=== PATIENT | female | born 1955 | race African-American/Black ===

== ENCOUNTER 2017-01-27 13:29 | Emergency (ER) | payer OTHER, MEDICARE, MEDICAID ==
--- NOTE | 2017-01-27 14:16 | ER Document Report ---
ED Medical Screen (RME) - General Stated Complaint: DIFFICULTY BREATHING Notes: She complains of difficulty breathing since last night. States she has had cough and congestion for the last week and a half. Denies chest pain. Also states she feels achy. No nausea or vomiting. Patient has a history of COPD and CHF. Used her inhalers at home last night but they are not helping. No fever I have greeted and performed a rapid initial assessment of this patient. A comprehensive ED assessment and evaluation of the patient, analysis of test results and completion of the medical decision making process will be conducted by additional ED providers. TRAVEL OUTSIDE OF THE [place] IN LAST 30 DAYS: No - Related Data Allergies/Adverse Reactions: No Known Allergies Allergy (Verified 01/27/17 14:11) Past Medical History - Past Medical History Cardiac Medical History: Reports: Hx Congestive Heart Failure, Hx Coronary Artery Disease, Hx Hypercholesterolemia, Hx Hypertension Pulmonary Medical History: Reports: Hx Asthma, Hx Bronchitis, Hx COPD - O2 dependent Denies: Hx Tuberculosis Musculoskeltal Medical History: Reports Hx Gout Psychiatric Medical History: Reports: Hx Depression Past Surgical History: Reports: Hx Section - x 4, Hx Tubal Ligation - Immunizations Hx Diphtheria, Pertussis, Tetanus Vaccination: Yes Physical Exam - Notes Notes: Patient has inspiratory and expiratory wheezing on auscultation, decreased air movement. No swelling noted to ankles.
[2017-01-27 15:12] LABS: ABSOLUTE BASOPHILS # (AUTO) 0.1 10^3/uL (0.0-0.2); ABSOLUTE EOSINOPHILS # (AUTO) 0.2 10^3/uL (0.0-0.6); ABSOLUTE LYMPHOCYTES (AUTO) 1.9 10^3/uL (0.5-4.7); ABSOLUTE NEUT (AUTO) 15.1 10^3/uL (1.7-8.2); BASOPHILS % (AUTO) 0.5 % (0-2); HEMATOCRIT 32.8 % (36.0-47.0); HEMOGLOBIN 10.8 g/dL (12.0-15.5); HGB HCT DIFFERENCE -0.4; LYMPHOCYTES % (AUTO) 10.4 % (13-45); MEAN CORPUSCULAR HEMOGLOBIN 27.6 pg (27.0-33.4); MEAN CORPUSCULAR HGB CONC 32.9 g/dL (32.0-36.0); MEAN CORPUSCULAR VOLUME 84 fl (80-97); MONOCYTES % (AUTO) 5.4 % (3-13); RED BLOOD COUNT 3.92 10^6/uL (3.72-5.28); RED CELL DISTRIBUTION WIDTH 18.1 % (11.5-14.0); SEGMENTED NEUTROPHILS % (AUTO) 82.7 % (42-78); WHITE BLOOD COUNT 18.3 10^3/uL (4.0-10.5)
[2017-01-27 15:28] LABS: ALANINE AMINOTRANSFERASE 18 U/L (9-52); ALKALINE PHOSPHATASE 121 U/L (38-126); ANION GAP 14 (5-19); ASPARTATE AMINO TRANSFERASE 13 U/L (14-36); BILIRUBIN,TOTAL 0.8 mg/dL (0.2-1.3); BLOOD UREA NITROGEN 23 mg/dL (7-20); CALCIUM 10.4 mg/dL (8.4-10.2); CARBON DIOXIDE 26 mmol/L (22-30); CHLORIDE 105 mmol/L (98-107); CREATININE RESULT 1.45 mg/dL (0.52-1.25); GLUCOSE 97 mg/dL (75-110); POTASSIUM 3.9 mmol/L (3.6-5.0); SODIUM 144.5 mmol/L (137-145); TOTAL PROTEIN 7.2 g/dL (6.3-8.2)
[2017-01-27] MEDS ORDERED: IPRATROPIUM/ALBUTEROL 0.5-2.5 MG/3 ML AMPUL NEB ONE (17:18)
[2017-01-27] MEDS ORDERED: PREDNISONE 20 MG TABLET PO ONE (17:19)
[2017-01-27] MEDS ORDERED: HYDROCODONE/ACETAMINOPHEN 5-325 MG TABLET PO ONE (17:20)
[2017-01-27] MEDS ORDERED: CYCLOBENZAPRINE HCL 10 MG TABLET PO ONE (17:20)
--- NOTE | 2017-01-27 17:22 | ER Document Report ---
ED General - General Chief Complaint: Shortness Of Breath Stated Complaint: DIFFICULTY BREATHING Mode of Arrival: Medic Information source: Patient, H Records Notes: This is a 61-year-old -Japanese female with oxygen-dependent COPD who presents with several complaints. Of note she has had a cough the past few days and has had increased wheezing. Also she states that she has pain to her right hand and both sides of her neck since last night. She also has R knee pain since last night. She states she has had similar pain in the past and was told that she has arthritis. Of note, she does have a history of gout in the past, and she has had this in her hands but never in her knee. She denies fevers or chills. She denies chest pain. TRAVEL OUTSIDE OF THE [place] IN LAST 30 DAYS: No - Related Data Allergies/Adverse Reactions: No Known Allergies Allergy (Verified 01/27/17 14:11) Past Medical History - Social History Smoking Status: Unknown if Ever Smoked Chew tobacco use (# tins/day): No Frequency of alcohol use: None Drug Abuse: None Family History: CVA, Hypertension Patient has suicidal ideation: No Patient has homicidal ideation: No - Past Medical History Cardiac Medical History: Reports: Hx Congestive Heart Failure, Hx Coronary Artery Disease, Hx Hypercholesterolemia, Hx Hypertension Pulmonary Medical History: Reports: Hx Asthma, Hx Bronchitis, Hx COPD - O2 dependent Denies: Hx Tuberculosis Renal/ Medical History: Denies: Hx Peritoneal Dialysis Musculoskeltal Medical History: Reports Hx Gout Psychiatric Medical History: Reports: Hx Depression Past Surgical History: Reports: Hx Section - x 4, Hx Tubal Ligation - Immunizations Hx Diphtheria, Pertussis, Tetanus Vaccination: Yes Hx Pneumococcal Vaccination: 05/06/12 Review of Systems - Review of Systems Constitutional: No symptoms reported. denies: Chills, Fever EENT: No symptoms reported Cardiovascular: No symptoms reported. denies: Chest pain Respiratory: See HPI Gastrointestinal: No symptoms reported. denies: Abdominal pain, Vomiting Genitourinary: No symptoms reported Musculoskeletal: See HPI Skin: No symptoms reported Neurological/Psychological: No symptoms reported. denies: Confusion, Headaches Physical Exam - Vital signs Vitals: Pulse BP Pulse Ox 81 179/81 H 95 01/27/17 13:48 01/27/17 13:48 01/27/17 13:48 - Notes Notes: PHYSICAL EXAMINATION: GENERAL: Well-appearing, obese adult female and in no acute distress. Pleasant and conversant with no conversational dyspnea. HEAD: Atraumatic, normocephalic. EYES: Pupils equal round and reactive to light, extraocular movements intact, sclera anicteric, conjunctiva are normal. ENT: nares patent, oropharynx clear without exudates. Moist mucous membranes. NECK: Normal range of motion, supple without lymphadenopathy. Bilateral paracervical muscle tenderness to palpation. No midline tenderness to palpation LUNGS: Diffuse scattered inspiratory and expiratory wheezes bilaterally with good air movement. No rhonchi. HEART: Regular rate and rhythm without murmurs ABDOMEN: Soft, nontender, normoactive bowel sounds. No guarding, no rebound. No masses appreciated. EXTREMITIES: Normal range of motion. R hand: no obvious deformity, DNVI, cap refill and pulses intact R knee: no obvious edema or deformity, no erythema or warmth. Diffuse TTP anteriorly. Distal pulses intact. ROM limited by pain. NEUROLOGICAL: Cranial nerves grossly intact. Normal speech. No gross focal motor sensory deficits appreciated. PSYCH: Normal mood, normal affect. SKIN: Warm, Dry, normal turgor, no rashes or lesions noted. Course - Re-evaluation Re-evalutation: 01/27/17 21:28 Patient states that her pain is much more controlled and that her breathing is at her baseline. We discussed her x-ray and lab results. She does have a leukocytosis as well as possibly a UTI. At this time she will be treated for urinary tract infection as well as a COPD exacerbation and gout. She will follow up with her primary care physician on Monday. Strict return precautions were discussed. She is comfortable with this plan. - Vital Signs Vital signs: Temp Pulse Resp BP Pulse Ox 98.1 F 88 17 179/94 H 95 01/27/17 21:47 01/27/17 21:47 01/27/17 21:47 01/27/17 21:47 01/27/17 21:47 - Laboratory Result Diagrams: 01/27/17 14:45 01/27/17 14:45 Laboratory results interpreted by me: 01/27/17 01/27/17 01/27/17 14:45 14:45 14:45 WBC 18.3 H Hgb 10.8 L Hct 32.8 L RDW 18.1 H Seg Neutrophils % 82.7 H Lymphocytes % 10.4 L Absolute Neutrophils 15.1 H BUN 23 H Creatinine 1.45 H Est GFR ( Amer) 44 L Est GFR (Non-Af Amer) 37 L Calcium 10.4 H AST 13 L NT-Pro-B Natriuret Pep 1280 H Urine Protein Urine Blood Ur Leukocyte Esterase 01/27/17 14:45 WBC Hgb Hct RDW Seg Neutrophils % Lymphocytes % Absolute Neutrophils BUN Creatinine Est GFR ( Amer) Est GFR (Non-Af Amer) Calcium AST NT-Pro-B Natriuret Pep Urine Protein 30 H Urine Blood SMALL H Ur Leukocyte Esterase LARGE H - Diagnostic Test Radiology reviewed: Reports reviewed - Chest x-ray no significant interval change noted infiltrate. Right hand x-ray negative Right knee x-ray negative Discharge - Discharge Clinical Impression: COPD exacerbation Gout attack Qualifiers: Gout site: multiple sites Gout etiology: unspecified cause Qualified Code(s): M10.9 - Gout, unspecified Urinary tract infection Qualifiers: Urinary tract infection type: site unspecified Hematuria presence: without hematuria Qualified Code(s): N39.0 - Urinary tract infection, site not specified Condition: Stable Disposition: HOME, SELF-CARE Additional Instructions: Chronic Obstructive Lung Disease You have chronic obstructive lung disease (COPD). The symptoms come from emphysema (damage to small airways, with trapping of air in large sacks in the lung) and chronic bronchitis (repeated infection and damage to larger airways). The cause is almost always cigarette smoking, although dust exposure, asthma, and infections contribute. You should avoid fumes, dust, and smoke (especially tobacco smoke). Your condition will flare from time to time. There is no cure, but the symptoms can be treated. Bronchodilators (asthma medicine) are often helpful. Antibiotics help when infection is present. When shortness of breath is severe, we may prescribe cortisone medication. If medicine doesn't help enough, we can arrange for you to have an oxygen tank at home. Notify your doctor at once if sputum becomes thick, foul, or bloody, if you develop a fever or chest pain, or if your shortness of breath worsens. URINARY TRACT INFECTION: Your evaluation indicates that you have a urinary tract infection. This is due to germs growing in the bladder. This is a common problem. This infection usually responds quickly to antibiotics. Your antibiotic should be taken exactly as prescribed. Drink plenty of fluids -- three to four quarts a day. Occasionally, a bladder anesthetic will be prescribed to help stop the feeling of urgency until the antibiotic has a chance to clear the infection. This may cause your urine to be dark orange. Certain urine infections require a culture. If the doctor obtained a culture, the results will be back in two days. You should call to see if a change in treatment is needed. A repeat urinalysis after you finish treatment is often recommended. The physician will let you know if further testing is required. Call the doctor if you develop fever, chills, flank pain, inability to urinate, or blood in the urine. ANTIBIOTIC THERAPY: You have been given an antibiotic prescription. It's important that you take all the medication, unless instructed otherwise by your physician. Failure to complete the entire course can result in relapse of your condition. Common side effects of antibiotics include nausea, intestinal cramping, or diarrhea. Women may develop vaginal yeast infections, and babies can get yeast (thrush) in the mouth following the use of antibiotics. Contact your physician if you develop significant side effects from this medication. Allergy to this antibiotic can result in hives, wheezing, faintness, or itching. If symptoms of allergy occur, stop the medication and call the doctor. LEVOFLOXACIN: You have been given an antibacterial agent, levofloxacin (Levaquin). This medicine is not related to the penicillins, sulfas, cephalosporins, or tetracyclines. It is often given to patients who are allergic to these drugs. It has been chosen for you either because other drugs are not appropriate, or because of the nature of your problem. Levaquin should not be taken with antacids, as these can decrease its effectiveness. It can be taken without regard to meals. LEVAQUIN SHOULD NOT BE TAKEN BY CHILDREN, NURSING WOMEN, OR WOMEN. Although Levaquin is usually well-tolerated, common side effects can include nausea and diarrhea. Contact your doctor if you experience any unusual symptoms while on this medication, such as joint pain or swelling, shortness of breath, wheezing, faintness, or hives. Gout You have been diagnosed as having gout. Gout is a problem caused by an excess of uric acid, a natural chemical found in the body. The cause of this disease is unknown. Gout arthritis occurs when crystals of uric acid form in the joints. The big toe is the most common joint involved, but any joint can become affected. Persons with gout may also form uric acid kidney stones, resulting in flank pain and blood in the urine. Nodules of uric acid may form under the skin. The first step of treatment is to decrease the inflammation in the joint with antiinflammatory medication. Medication to lower the uric acid level in the blood may then be prescribed. This medication should be taken regularly, as any sudden change in dosage may provoke an attack of gout. Some foods, such as red meat, can provoke an attack in some gout sufferers. Call the doctor if new symptoms arise, or if you do not improve. FOLLOW-UP CARE: If you have been referred to a physician for follow-up care, call the physician s office for an appointment as you were instructed or within the next two days. If you experience worsening or a significant change in your symptoms, notify the physician immediately or return to the Emergency Department at any time for re-evaluation. Prescriptions: Hydrocodone/Acetaminophen [Lortab 5-325 mg Tablet] 1 each PO Q6H PRN #12 tablet PRN Reason: For Pain Levofloxacin [Levaquin 750 mg Tablet] 750 mg PO DAILY #5 tablet Prednisone [Deltasone 20 mg Tablet] 3 tab PO DAILY 4 Days Referrals: MILA LO MD [Primary Care Provider] - Follow up in 3-5 days
[2017-01-27] MEDS ORDERED: HYDROCODONE/ACETAMINOPHEN 7.5-325 MG TABLET PO ONE (17:32)
[2017-01-27 17:33] LABS: APPEARANCE,URINE CLEAR; BILIRUBIN,URINE NEGATIVE (NEGATIVE); GLUCOSE, URINE NEGATIVE (NEGATIVE); KETONES,URINE NEGATIVE (NEGATIVE); LEUKOCYTE ESTERASE,URINE LARGE (NEGATIVE); NITRITE,URINE NEGATIVE (NEGATIVE); PROTEIN,URINE 30 mg/dL (NEGATIVE); URINE SPECIFIC GRAVITY 1.001; UROBILINOGEN,URINE NEGATIVE mg/dL (<2.0)
[2017-01-27] MEDS ORDERED: CEFTRIAXONE 1 GM/D5W RTU 50 ML IV ONE (19:13)
[2017-01-27] MEDS ORDERED: INDOMETHACIN 50 MG CAPSULE PO ONE (19:20)
[2017-01-27] MEDS ORDERED: MORPHINE SULFATE 10 MG/ML INJ IV ONE (19:21)
--- NOTE | 2017-01-27 19:40 | EKG REPORT ---
SEVERITY:- ABNORMAL ECG - SINUS RHYTHM PROBABLE LEFT ATRIAL ABNORMALITY NONSPECIFIC INTRAVENTRICULAR CONDUCTION DELAY LEFT VENTRICULAR HYPERTROPHY : Confirmed by: Lauren Wick 27-Jan-2017 19:40:02
[2017-01-27 22:38] VITALS: BP 179/94
== END 2017-01-27 21:47 | disposition home or self-care (01) ==
LOC: ER 13:29
DX: J44.1 Chronic obstructive pulmonary disease with (acute) exacerbation (principal); J45.909 Unspecified asthma, uncomplicated; Z99.81 Dependence on supplemental oxygen; M10.9 Gout, unspecified; N39.0 Urinary tract infection, site not specified; D72.829 Elevated white blood cell count, unspecified; R05 Cough; M54.2 Cervicalgia; M79.641 Pain in right hand; M25.561 Pain in right knee; I25.10 Atherosclerotic heart disease of native coronary artery without angina pectoris; I10 Essential (primary) hypertension; E66.9 Obesity, unspecified; Z68.37 Body mass index [BMI] 37.0-37.9, adult
CPT/HCPCS: 93005; 94640; 99285; 96375; 96365; 36415; 87040; 85025; 80053; 81001; 83880; 71020; 73130; 73562; 93010; J3490; J2270; J7512; J0696; J7620

== ENCOUNTER 2017-04-15 19:05 | Inpatient (IN) | payer OTHER, MEDICARE, MEDICAID ==
[2017-04-15] MEDS ORDERED: IPRATROPIUM/ALBUTEROL 0.5-2.5 MG/3 ML AMPUL NEB ONE ×3 (19:23→21:58)
[2017-04-15] MEDS ORDERED: METHYLPREDNISOLONE INJ 125 MG/2 ML SDV IV ONE (19:23)
--- NOTE | 2017-04-15 19:23 | ER Document Report ---
ED Respiratory Problem - General Mode of Arrival: Ambulatory Information source: Patient TRAVEL OUTSIDE OF THE [place] IN LAST 30 DAYS: No - HPI Patient complains to provider of: Short of breath Short of Breath: Moderate <MEGHA VILLA - Last Filed: 04/15/17 19:42> <KEATON PUTNAM - Last Filed: 04/15/17 23:37> - General Stated Complaint: SHORTNESS OF BREATH Time Seen by Provider: 04/15/17 19:16 Notes: Patient is a 61-year-old female who presents to the emergency department today with complaints of shortness of breath. Patient states she "just got done fishing when she began having shortness of breath approximately 5 hours prior to arrival". Patient states she had one breathing treatment at home prior to arrival. Patient states she takes 1 breathing treatment every 6 hours but does not have any emergency treatments for times like this. Patient states she is on 2L of home oxygen. Patient states she gained 2.2 pounds yesterday. Patient states she has had a slight cough but denies chest pain, fevers, leg swelling, abdominal pain. (MEGHA VILLA) - Related Data Allergies/Adverse Reactions: No Known Allergies Allergy (Verified 01/27/17 14:11) Past Medical History - General Information source: Patient - Social History Smoking Status: Unknown if Ever Smoked Cigarette use (# per day): No Frequency of alcohol use: None Drug Abuse: None Lives with: Family Family History: Reviewed & Not Pertinent, CVA, Hypertension - Past Medical History Cardiac Medical History: Reports: Hx Congestive Heart Failure, Hx Coronary Artery Disease, Hx Hypercholesterolemia, Hx Hypertension Pulmonary Medical History: Reports: Hx Asthma, Hx Bronchitis, Hx COPD - O2 dependent Musculoskeltal Medical History: Reports Hx Gout Psychiatric Medical History: Reports: Hx Depression Past Surgical History: Reports: Hx Section - x 4, Hx Tubal Ligation - Immunizations Hx Diphtheria, Pertussis, Tetanus Vaccination: Yes Hx Pneumococcal Vaccination: 05/06/12 <MEGHA VILLA - Last Filed: 04/15/17 19:42> Review of Systems - Review of Systems Constitutional: denies: Fever EENT: No symptoms reported Cardiovascular: denies: Chest pain Respiratory: See HPI, Cough, Short of breath Gastrointestinal: denies: Abdominal pain Genitourinary: No symptoms reported Female Genitourinary: No symptoms reported Musculoskeletal: denies: Joint pain Skin: No symptoms reported Hematologic/Lymphatic: No symptoms reported Neurological/Psychological: No symptoms reported -: Yes All other systems reviewed and negative <MEGHA VILLA - Last Filed: 04/15/17 19:42> Physical Exam <MEGHA VILLA - Last Filed: 04/15/17 19:42> <KEATON PUTNAM - Last Filed: 04/15/17 23:37> - Vital signs Vitals: Temp Resp Pulse Ox 98.1 F 22 H 97 04/15/17 19:30 04/15/17 19:30 04/15/17 19:30 - Notes Notes: Physical Exam: General: Alert, appears well. HEENT: Normocephalic. Atraumatic. PERRL. Extraocular movements intact. Oropharynx clear. Neck: Supple. Non-tender. Respiratory: Coarse breath sounds diffusely w/ wheeze. Good air movement. Cardiovascular: Regular rate and rhythm. Abdominal: Obese. Non-tender. No distension. Normal Bowel Sounds. Back: Non-tender. No deformity or step off. Extremities: Moves all four extremities. Upper extremities: Normal inspection. Normal ROM. Lower extremities: Trace edema to bilateral lower extremities. Normal ROM. Neurological: Normal cognition. AAOx4. Normal speech. Psychological: Normal affect. Normal Mood. Skin: Warm. Dry. Normal color. (MEGHA VILLA) Course - Laboratory Result Diagrams: 04/15/17 19:28 04/15/17 19:28 <ALLENKRISSYMEGHA - Last Filed: 04/15/17 19:42> - Laboratory Result Diagrams: 04/15/17 19:28 04/15/17 19:28 <KEATON PUTNAM - Last Filed: 04/15/17 23:37> - Re-evaluation Re-evalutation: 04/15/17 21:59 pt still with persistent wheezing. Will add Azithromycin for atypical pneumonia coverage. Sats good but still somewhat tachypneic. (KEATON PUTNAM) - Vital Signs Vital signs: Temp Pulse Resp BP Pulse Ox 98.1 F 25 H 152/82 H 95 04/15/17 19:30 04/15/17 22:01 04/15/17 22:01 04/15/17 22:01 - Laboratory Laboratory results interpreted by me: 04/15/17 04/15/17 19:28 19:28 Hgb 11.4 L Hct 34.8 L RDW 14.4 H Sodium 146.8 H Potassium 3.3 L BUN 28 H Creatinine 1.52 H Est GFR ( Amer) 42 L Est GFR (Non-Af Amer) 35 L Discharge <MEGHA VILLA - Last Filed: 04/15/17 19:42> - Discharge Admitting Provider: Hospitalist Unit Admitted: Telemetry [facility] <KEATON PUTNAM - Last Filed: 04/15/17 23:37> - Discharge Clinical Impression: Wheezing, Obstructive chronic bronchitis with exacerbation Condition: Stable Disposition: ADMITTED OBSERVATION Referrals: WENCESLAO PEGUERO DO [Primary Care Provider] - Follow up as needed Scribe Attestation: 04/15/17 23:37 I personally performed the services described in the documentation, reviewed and edited the documentation which was dictated to the scribe in my presence, and it accurately records my words and actions. (KEATON PUTNAM) Scribe Documentation - Scribe Written by Atae:: Mayela Campbell, 04/15/171950 acting as scribe for :: Layla <MEGHA VILLA - Last Filed: 04/15/17 19:42>
[2017-04-15 19:46] LABS: ABSOLUTE BASOPHILS # (AUTO) 0.1 10^3/uL (0.0-0.2); ABSOLUTE EOSINOPHILS # (AUTO) 0.5 10^3/uL (0.0-0.6); ABSOLUTE LYMPHOCYTES (AUTO) 3.3 10^3/uL (0.5-4.7); ABSOLUTE MONOCYTES (AUTO) 0.7 10^3/uL (0.1-1.4); BASOPHILS % (AUTO) 0.7 % (0-2); HEMATOCRIT 34.8 % (36.0-47.0); HEMOGLOBIN 11.4 g/dL (12.0-15.5); HGB HCT DIFFERENCE -0.6; LYMPHOCYTES % (AUTO) 34.5 % (13-45); MEAN CORPUSCULAR HEMOGLOBIN 28.3 pg (27.0-33.4); MEAN CORPUSCULAR HGB CONC 32.7 g/dL (32.0-36.0); MEAN CORPUSCULAR VOLUME 87 fl (80-97); MONOCYTES % (AUTO) 7.3 % (3-13); RED BLOOD COUNT 4.03 10^6/uL (3.72-5.28); RED CELL DISTRIBUTION WIDTH 14.4 % (11.5-14.0); SEGMENTED NEUTROPHILS % (AUTO) 52.5 % (42-78); WHITE BLOOD COUNT 9.4 10^3/uL (4.0-10.5)
[2017-04-15 19:51] LABS: ALANINE AMINOTRANSFERASE 20 U/L (9-52); ALBUMIN 3.5 g/dL (3.5-5.0); ALKALINE PHOSPHATASE 107 U/L (38-126); ANION GAP 14 (5-19); ASPARTATE AMINO TRANSFERASE 15 U/L (14-36); BILIRUBIN,DIRECT 0.2 mg/dL (0.0-0.4); BILIRUBIN,TOTAL 0.3 mg/dL (0.2-1.3); BLOOD UREA NITROGEN 28 mg/dL (7-20); CALCIUM 9.3 mg/dL (8.4-10.2); CARBON DIOXIDE 27 mmol/L (22-30); CHLORIDE 106 mmol/L (98-107); CREATININE RESULT 1.52 mg/dL (0.52-1.25); GLUCOSE 101 mg/dL (75-110); POTASSIUM 3.3 mmol/L (3.6-5.0); SODIUM 146.8 mmol/L (137-145); TOTAL PROTEIN 6.6 g/dL (6.3-8.2)
[2017-04-15 20:03] LABS: TROPONIN I 0.029 ng/mL
--- NOTE | 2017-04-15 20:21 | EKG REPORT ---
SEVERITY:- ABNORMAL ECG - SINUS RHYTHM IVCD, CONSIDER ATYPICAL LBBB : Confirmed by: Everardo Parson MD 15-Apr-2017 20:20:53
--- NOTE | 2017-04-15 20:43 | RADIOLOGY REPORT (SQ) ---
EXAM DESCRIPTION: CHEST PA/LAT COMPLETED DATE/TIME: 04/15/2017 8:29 pm REASON FOR STUDY: cough, wheezing COMPARISON: January 2017 EXAM PARAMETERS: NUMBER OF VIEWS: two views TECHNIQUE: Digital Frontal and Lateral radiographic views of the chest acquired. RADIATION DOSE: NA LIMITATIONS: none FINDINGS: LUNGS AND PLEURA: No opacities, masses or pneumothorax. No pleural effusion. MEDIASTINUM AND HILAR STRUCTURES: No masses or contour abnormalities. HEART AND VASCULAR STRUCTURES: The configuration of the heart and mediastinal structures is unchanged . BONES: No acute findings. HARDWARE: None in the chest. OTHER: No other significant finding. IMPRESSION: No significant interval change. No acute findings. Other findings as noted above. TECHNICAL DOCUMENTATION: JOB ID: [id number] [employer]- All Rights Reserved
[2017-04-15] MEDS ORDERED: AZITHROMYCIN 250 MG TABLET PO ONE (21:58)
[2017-04-15] MEDS ORDERED: ALBUTEROL SULFATE 0.083% NEB 2.5 MG/3 ML AMPUL NEB ONE (23:11)
[2017-04-15] MEDS ORDERED: FUROSEMIDE INJ/PF 40 MG/4 ML SDV IV ONE (23:13)
[2017-04-15] MEDS ORDERED: POTASSIUM CHLORIDE 20 MEQ/15 ML UDCUP PO ONE (23:35)
[2017-04-16] MEDS ORDERED: ACETAMINOPHEN 325 MG TABLET PO PRN (00:09)
[2017-04-16] MEDS ORDERED: HYDROCODONE/ACETAMINOPHEN 5-325 MG TABLET PO PRN (00:09)
[2017-04-16] MEDS ORDERED: PREDNISONE 20 MG TABLET PO SCH (00:15)
--- NOTE | 2017-04-16 00:55 | PDOC H&P ---
History of Present Illness Admission Date/PCP: 04/16/17 00:16 WENCESLAO PEGUERO DO Patient complains of: Shortness of breath and cough History of Present Illness: BOOM TODD is a 61 year old female past medical history of hypertension , diastolic heart failure, home oxygen dependent COPD, moderate mitral regurgitation and stage III chronic kidney disease. She was in her her usual state of health until approximately 6 hours prior to presentation, developing shortness of breath and a nonproductive cough while ambulating not significantly improved with use of nebulizer or rest prompting evaluation in the emergency room where she is found to have uncontrolled hypertension, tachycardia and a COPD exacerbation and referred to the hospitalist for admission. She denies chest pain palpitations nausea or vomiting and admits to improvement. Denies recent change in medications otherwise felt well. Past Medical History Cardiac Medical History: Reports: Congestive Heart Failure, Coronary Artery Disease, Hyperlipidema, Hypertension Pulmonary Medical History: Reports: Asthma, Bronchitis, Chronic Obstructive Pulmonary Disease (COPD) - O2 dependent Denies: Tuberculosis Musculoskeltal Medical History: Reports: Gout Psychiatric Medical History: Reports: Depression Past Surgical History Past Surgical History: Reports: Section - x 4, Tubal Ligation Social History Information Source: Patient Lives with: Family Smoking Status: Former Smoker Frequency of Alcohol Use: None Hx Recreational Drug Use: No Drugs: None Hx Prescription Drug Abuse: No - Advance Directive Resuscitation Status: Full Code Family History Family History: CVA, Hypertension Parental Family History Reviewed: Yes Children Family History Reviewed: Yes Sibling(s) Family History Reviewed.: Yes Medication/Allergy Home Medications: Amlodipine Besylate [Norvasc 10 mg Tablet] 10 mg PO DAILY 10/16/16 Aspirin [Ecotrin] 81 mg PO DAILY PRN 10/16/16 Cyanocobalamin (Vitamin B-12) [B-12] 1,000 mcg PO DAILY 10/16/16 Gabapentin [Neurontin] 800 mg PO DAILY 10/16/16 Hydralazine HCl [Apresoline 50 mg Tablet] 50 mg PO QID 10/16/16 Multivitamin [Multivitamins] 1 each PO DAILY 10/16/16 Acetaminophen [Tylenol 325 mg Tablet] 650 mg PO Q6HP PRN tablet 10/20/16 Doxycycline Hyclate [Vibramycin 100 mg Tablet] 100 mg PO Q12 #10 tablet Ipratropium/Albuterol Sulfate [Duoneb 3 ml Ampul] 3 ml NEB RTQ6 vial.neb Prednisone [Deltasone 20 mg Tablet] 40 mg PO DAILY #5 tablet 10/20/16 Albuterol Sulfate [Albuterol Sulfate 2.5mg/3 mL] 2.5 mg IH Q4 #30 ml 11/12/16 Prednisone [Deltasone] 60 mg PO DAILY 5 Days 11/12/16 Hydrocodone/Acetaminophen [Lortab 5-325 mg Tablet] 1 each PO Q6H PRN #12 tablet 01/27/17 Levofloxacin [Levaquin 750 mg Tablet] 750 mg PO DAILY #5 tablet 01/27/17 Prednisone [Deltasone 20 mg Tablet] 3 tab PO DAILY 4 Days 01/27/17 Allergies/Adverse Reactions: No Known Allergies Allergy (Verified 01/27/17 14:11) Review of Systems Constitutional: ABSENT: chills, fever(s), headache(s), weight gain, weight loss Eyes: ABSENT: visual disturbances Ears: ABSENT: hearing changes Cardiovascular: PRESENT: dyspnea on exertion, orthropnea. ABSENT: chest pain, edema, palpitations Respiratory: PRESENT: cough, dyspnea, hemoptysis. ABSENT: sputum Gastrointestinal: ABSENT: abdominal pain, constipation, diarrhea, hematemesis, hematochezia, nausea, vomiting Genitourinary: ABSENT: dysuria, hematuria Musculoskeletal: ABSENT: joint swelling Integumentary: ABSENT: rash, wounds Neurological: ABSENT: abnormal gait, abnormal speech, confusion, dizziness, focal weakness, syncope Psychiatric: ABSENT: anxiety, depression, homidical ideation, suicidal ideation Endocrine: ABSENT: cold intolerance, heat intolerance, polydipsia, polyuria Hematologic/Lymphatic: ABSENT: easy bleeding, easy bruising Physical Exam Vital Signs: Temp Pulse Resp BP Pulse Ox 98.1 F 21 H 143/85 H 96 04/16/17 00:01 04/16/17 00:01 04/16/17 00:01 04/16/17 00:01 General appearance: PRESENT: cooperative, mild distress, obese Head exam: PRESENT: atraumatic, normocephalic Eye exam: PRESENT: conjunctiva pink, EOMI, PERRLA. ABSENT: scleral icterus Ear exam: PRESENT: normal external ear exam Mouth exam: PRESENT: moist, tongue midline Neck exam: ABSENT: carotid bruit, JVD, lymphadenopathy, thyromegaly Respiratory exam: PRESENT: accessory muscle use, crackles, decreased breath sounds, prolonged expiratory phas, retraction, rhonchi, tachypnea. ABSENT: stridor, wheezes Cardiovascular exam: PRESENT: RRR, +S1, +S2, systolic murmur Pulses: PRESENT: normal dorsalis pedis pul Vascular exam: PRESENT: normal capillary refill GI/Abdominal exam: PRESENT: normal bowel sounds, soft. ABSENT: distended, guarding, mass, organolmegaly, rebound, tenderness Rectal exam: PRESENT: deferred Extremities exam: PRESENT: full ROM. ABSENT: calf tenderness, clubbing, pedal edema Neurological exam: PRESENT: alert, awake, oriented to person, oriented to place , oriented to time, oriented to situation, CN II-XII grossly intact. ABSENT: motor sensory deficit Psychiatric exam: PRESENT: appropriate affect, normal mood. ABSENT: homicidal ideation, suicidal ideation Skin exam: PRESENT: dry, intact, warm. ABSENT: cyanosis, rash Results Impressions: Chest X-Ray 04/15/17 19:23 IMPRESSION: No significant interval change. No acute findings. Other findings as noted above. Assessment & Plan - Diagnosis (1) COPD with exacerbation Is this a current diagnosis for this admission?: YesPlan: Acute exacerbation of chronic condition likely secondary to acute on chronic bronchitis, she is ordered flutter valve, albuterol, Atrovent, incentive spirometry Grossman antibiotics and prednisone (2) Hypertension Is this a current diagnosis for this admission?: YesPlan: Lysing outpatient regiment consider Cardizem if tachycardia uncontrolled (3) Tachycardia Is this a current diagnosis for this admission?: YesPlan: As needed Cardizem (4) Acute on chronic diastolic CHF (congestive heart failure) Is this a current diagnosis for this admission?: YesPlan: Optimize blood pressure and rate, avoid volume overload - Time Time Spent: 50 to 70 Minutes - Inpatient Certification Medical Necessity: Need Close Monitoring Due to Risk of Patient Decompensation
[2017-04-16] MEDS ORDERED: LORATADINE 10 MG TABLET PO ONE (01:00)
[2017-04-16] MEDS ORDERED: MAGNESIUM OXIDE 400 MG TABLET PO ONE (01:00)
[2017-04-16] MEDS ORDERED: GUAIFENESIN SYRP 200 MG/10 ML UDC PO PRN (01:11)
[2017-04-16 01:12] LABS: CREATINE KINASE MB 1.42 ng/mL (<4.55); TROPONIN I 0.026 ng/mL
[2017-04-16] MEDS ORDERED: LEVOFLOXACIN 500 MG/D5W RTU 500 MG/100 ML RTUPB IV ONE (01:30)
[2017-04-16] MEDS: HEPARIN SOD (PORCINE) 5,000 UNIT/ML 1 ML SYRINGE SUBCUT SCH ×3 (06:12→21:25)
[2017-04-16 07:25] LABS: ABSOLUTE MONOCYTES (AUTO) 0.1 10^3/uL (0.1-1.4); ABSOLUTE NEUT (AUTO) 5.9 10^3/uL (1.7-8.2); BASOPHILS % (AUTO) 0.2 % (0-2); HEMATOCRIT 35.4 % (36.0-47.0); HEMOGLOBIN 11.3 g/dL (12.0-15.5); HGB HCT DIFFERENCE -1.5; LYMPHOCYTES % (AUTO) 14.5 % (13-45); MEAN CORPUSCULAR HEMOGLOBIN 27.9 pg (27.0-33.4); MEAN CORPUSCULAR VOLUME 87 fl (80-97); MONOCYTES % (AUTO) 0.8 % (3-13); RED BLOOD COUNT 4.06 10^6/uL (3.72-5.28); RED CELL DISTRIBUTION WIDTH 14.7 % (11.5-14.0); SEGMENTED NEUTROPHILS % (AUTO) 84.5 % (42-78)
[2017-04-16 07:49] LABS: CREATINE KINASE MB 1.37 ng/mL (<4.55)
[2017-04-16 07:50] LABS: TROPONIN I < 0.012 ng/mL
[2017-04-16] MEDS: GUAIFENESIN 600 MG TABLET.SA PO SCH ×2 (10:29→21:25)
[2017-04-16] MEDS: FLUTICASONE NASAL SPRAY 50 MCG/SPRY 120 SPRAY/16 GM NASL SCH (10:30)
[2017-04-16] MEDS: ASPIRIN 81 MG TABLET, ENT COATED PO SCH (10:30)
[2017-04-16] MEDS ORDERED: MAGNESIUM SULFATE/D5W 1 GM/100 ML RTUPB IV ONE (10:30)
[2017-04-16] MEDS ORDERED: GABAPENTIN 400 MG CAPSULE PO ONE (11:00)
[2017-04-16] MEDS: IPRATROPIUM/ALBUTEROL 0.5-2.5 MG/3 ML AMPUL NEB PRN ×2 (13:02→19:55)
[2017-04-16 13:09] LABS: CREATINE KINASE MB 1.29 ng/mL (<4.55); TROPONIN I < 0.012 ng/mL
[2017-04-16] MEDS: METHYLPREDNISOLONE INJ 125 MG/2 ML SDV IV SCH ×2 (14:04→21:25)
[2017-04-16] MEDS ORDERED: TRAMADOL HCL 50 MG TABLET PO PRN (14:15)
[2017-04-16] MEDS ORDERED: FUROSEMIDE INJ/PF 40 MG/4 ML SDV ONE (14:27)
[2017-04-16] MEDS ORDERED: FUROSEMIDE INJ/PF 40 MG/4 ML SDV IV ONE (14:36)
[2017-04-16] MEDS ORDERED: NALOXONE HCL INJ/PF 0.4 MG/1 ML SDV IV ONE (14:53)
[2017-04-16 15:13] LABS: ARTERIAL BLOOD BASE EXCESS 4.9 mmol/L
--- NOTE | 2017-04-16 15:15 | PDOC PROGRESS REPORT ---
Subjective Progress Note for:: 04/16/17 Subjective:: Patient is seen on morning rounds. She is resting in bed. She does not appear in any distress. She continues to have bilateral expiratory wheezing. She has a harsh nonproductive cough. She denies dyspnea or shortness of breath at rest. She denies any fever or chills. She states she has had a cough for the last 4 days. She does wear oxygen at home at 2 L which she is presently on the present time. Oxygen saturations are good. She has some chest tightness on deep inspiration. She denies any palpitations, chest pain or dyspnea. She denies any nausea, vomiting, or diarrhea. She denies any significant arthralgias or myalgias. Rest of the review of systems is negative. Physical Exam Vital Signs: Temp Pulse Resp BP Pulse Ox 98.1 F 84 20 155/76 H 95 04/16/17 11:47 04/16/17 14:00 04/16/17 13:02 04/16/17 11:47 04/16/17 13:02 Intake & Output 04/15/17 04/16/17 04/17/17 06:59 06:59 06:59 Intake Total 990 Balance 990 General appearance: PRESENT: no acute distress, obese, well-developed, well- nourished Head exam: PRESENT: atraumatic, normocephalic Eye exam: PRESENT: conjunctiva pink, EOMI, PERRLA. ABSENT: scleral icterus Ear exam: PRESENT: normal external ear exam Mouth exam: PRESENT: moist, tongue midline Neck exam: ABSENT: carotid bruit, JVD, lymphadenopathy, thyromegaly Respiratory exam: PRESENT: symmetrical, unlabored, wheezes - Coarse expiratory bilaterally Cardiovascular exam: PRESENT: RRR. ABSENT: diastolic murmur, rubs, systolic murmur Pulses: PRESENT: normal dorsalis pedis pul Vascular exam: PRESENT: normal capillary refill GI/Abdominal exam: PRESENT: normal bowel sounds, soft. ABSENT: distended, guarding, mass, organolmegaly, rebound, tenderness Rectal exam: PRESENT: deferred Extremities exam: PRESENT: full ROM. ABSENT: calf tenderness, clubbing, pedal edema Neurological exam: PRESENT: alert, awake, oriented to person, oriented to place , oriented to time, oriented to situation, CN II-XII grossly intact. ABSENT: motor sensory deficit Psychiatric exam: PRESENT: appropriate affect, normal mood. ABSENT: homicidal ideation, suicidal ideation Skin exam: PRESENT: dry, intact, warm. ABSENT: cyanosis, rash Results Impressions: Chest X-Ray 04/15/17 19:23 IMPRESSION: No significant interval change. No acute findings. Other findings as noted above. Assessment & Plan - Diagnosis (1) Acute exacerbation of chronic bronchitis Is this a current diagnosis for this admission?: YesPlan: Patient will be started on DuoNeb nebulizer treatment every 8 hours and every 3 hours as needed. Change prednisone p.o. to methylprednisolone 125 mg IV every 6 hours. Restart Spiriva and Symbicort that she uses at home. Guaifenesin twice daily. We will give her 1 g of magnesium sulfate. Continue broad- spectrum antibiotics. (2) Accelerated essential hypertension Is this a current diagnosis for this admission?: YesPlan: Patient will be restarted on her home antihypertensives. Blood pressure presently is 150/80. (3) Wheezing Is this a current diagnosis for this admission?: YesPlan: IV steroids and nebulizer treatment (4) COPD with exacerbation Is this a current diagnosis for this admission?: YesPlan: Continue steroids, nebulizers, and antibiotics. (5) Acute on chronic diastolic CHF (congestive heart failure) Is this a current diagnosis for this admission?: YesPlan: Patient at the present time appears euvolemic. Continue Lasix as ordered at home. (6) Severe obesity (BMI 35.0-39.9) with comorbidity Is this a current diagnosis for this admission?: YesPlan: Patient was counseled on the need for weight loss. She may have some obstructive sleep apnea undiagnosed. Will get nocturnal oximetry. - Time Time Spent with patient: 25-34 minutes Critical Time spent with patient: 15-24 minutes Medications reviewed and adjusted accordingly: Yes
--- NOTE | 2017-04-16 15:19 | Progress Note ---
Provider Note Provider Note: Called by nursing staff at 1420, pain patient was obtunded and unable to be aroused. Her oxygen saturation on 2 L was 98%. She had a nebulizer treatment less than 1 hour ago and was talking to the respiratory therapist normally. Blood pressure is 182/88. She has not had her morning antihypertensive. She is not tachycardic at the present time. She has not had any narcotic pain medication either. Patient was placed on BiPAP therapy 03/05 with FiO2 30%. She began to increase her wakefulness. ABG is obtained. CO2 slightly elevated at 50 with a normal pH and adequate oxygenation. Continue with BiPAP as needed. Patient will need sleep study postdischarge.
[2017-04-16] MEDS: IPRATROPIUM/ALBUTEROL 0.5-2.5 MG/3 ML AMPUL NEB SCH (16:07)
[2017-04-16] MEDS: FUROSEMIDE 40 MG TABLET PO SCH (17:24)
[2017-04-16] MEDS ORDERED: CARVEDILOL 3.125 MG TABLET PO SCH (18:00)
[2017-04-16] MEDS: LEVOFLOXACIN 500 MG/D5W RTU 500 MG/100 ML RTUPB IV SCH (21:25)
[2017-04-16] MEDS: GABAPENTIN 400 MG CAPSULE PO SCH (21:25)
[2017-04-16] MEDS: BUDESONIDE/FORMOTEROL 160-4.5 MCG 60 PUFF/6 GM MDI IH SCH (21:26)
[2017-04-16] MEDS: HYDRALAZINE HCL 50 MG TABLET PO SCH (21:26)
[2017-04-17] MEDS: IPRATROPIUM/ALBUTEROL 0.5-2.5 MG/3 ML AMPUL NEB SCH ×4 (00:07→23:56)
[2017-04-17] MEDS: HEPARIN SOD (PORCINE) 5,000 UNIT/ML 1 ML SYRINGE SUBCUT SCH ×3 (05:23→21:55)
[2017-04-17] MEDS: METHYLPREDNISOLONE INJ 125 MG/2 ML SDV IV SCH ×2 (05:23→21:54)
[2017-04-17] MEDS ORDERED: CARVEDILOL 3.125 MG TABLET PO SCH (07:35)
[2017-04-17] MEDS: ASPIRIN 81 MG TABLET, ENT COATED PO SCH (09:45)
[2017-04-17] MEDS: GUAIFENESIN 600 MG TABLET.SA PO SCH ×2 (09:45→21:54)
[2017-04-17] MEDS: FUROSEMIDE 40 MG TABLET PO SCH ×2 (09:45→17:02)
[2017-04-17] MEDS: HYDRALAZINE HCL 50 MG TABLET PO SCH ×2 (09:45→21:54)
[2017-04-17] MEDS: AMLODIPINE BESYLATE 10 MG TABLET PO SCH (09:46)
[2017-04-17] MEDS: FERROUS SULFATE 325 MG TABLET PO SCH (09:46)
[2017-04-17] MEDS: FLUTICASONE NASAL SPRAY 50 MCG/SPRY 120 SPRAY/16 GM NASL SCH ×2 (09:47→09:48)
[2017-04-17] MEDS: BUDESONIDE/FORMOTEROL 160-4.5 MCG 60 PUFF/6 GM MDI IH SCH ×2 (09:48→21:55)
[2017-04-17] MEDS: TIOTROPIUM BROMIDE DPI 5 CAP/KIT (18 MCG/CAP) IH SCH (09:48)
[2017-04-17] MEDS: GABAPENTIN 400 MG CAPSULE PO SCH (09:54)
[2017-04-17] MEDS ORDERED: CYANOCOBALAMIN (VITAMIN B-12) 1,000 MCG TABLET PO SCH (10:00)
[2017-04-17] MEDS ORDERED: (PENDING PHARMACY ID) (Cyanocobalamin (Vitamin B-12) [Vitamin B-12 100 Mcg Tablet] 100 MCG PO SCH (10:00)
[2017-04-17] MEDS ORDERED: (PENDING PHARMACY ID) (Ferrous Sulfate [Ferrous Sulfate] 324 MG) PO SCH (10:00)
[2017-04-17] MEDS ORDERED: LISINOPRIL 10 MG TABLET PO SCH (10:00)
[2017-04-17] MEDS ORDERED: ASPIRIN 81 MG TABLET, ENT COATED PO SCH (10:00)
[2017-04-17] MEDS ORDERED: GABAPENTIN 400 MG CAPSULE PO SCH (10:00)
--- NOTE | 2017-04-17 12:03 | PDOC PROGRESS REPORT ---
Subjective Progress Note for:: 04/17/17 Subjective:: Patient is seen on morning rounds. She is resting in bed. She does not appear in any distress. She states wheezing is improved. She has some chest tightness on deep inspiration. She denies any palpitations, chest pain or dyspnea. She denies any nausea, vomiting, or diarrhea. She denies any significant arthralgias or myalgias. Rest of the review of systems is negative. Physical Exam Vital Signs: Temp Pulse Resp BP Pulse Ox 97.9 F 74 18 165/73 H 98 04/17/17 07:32 04/17/17 07:32 04/17/17 07:32 04/17/17 07:32 04/17/17 07:32 Intake & Output 04/16/17 04/17/17 04/18/17 06:59 06:59 06:59 Intake Total 1470 Output Total 200 Balance 1270 Weight 110.9 kg General appearance: PRESENT: no acute distress, obese, well-developed, well- nourished Head exam: PRESENT: atraumatic, normocephalic Eye exam: PRESENT: conjunctiva pink, EOMI, PERRLA. ABSENT: scleral icterus Ear exam: PRESENT: normal external ear exam Mouth exam: PRESENT: moist, tongue midline Neck exam: ABSENT: carotid bruit, JVD, lymphadenopathy, thyromegaly Respiratory exam: PRESENT: symmetrical, unlabored, wheezes - mild expiratory wheezing Cardiovascular exam: PRESENT: RRR. ABSENT: diastolic murmur, rubs, systolic murmur Vascular exam: PRESENT: normal capillary refill GI/Abdominal exam: PRESENT: normal bowel sounds, soft. ABSENT: distended, guarding, mass, organolmegaly, rebound, tenderness Rectal exam: PRESENT: deferred Extremities exam: PRESENT: full ROM. ABSENT: calf tenderness, clubbing, pedal edema Neurological exam: PRESENT: alert, awake, oriented to person, oriented to place , oriented to time, oriented to situation, CN II-XII grossly intact Psychiatric exam: PRESENT: appropriate affect, normal mood. ABSENT: homicidal ideation, suicidal ideation Skin exam: PRESENT: dry, intact, warm. ABSENT: cyanosis, rash Results Laboratory Results: 04/16/17 14:52 Carbonic Acid 1.52 H HCO3/H2CO3 Ratio 20:1 ABG pH 7.40 ABG pCO2 50.6 H ABG pO2 92.8 ABG HCO3 30.8 H ABG O2 Saturation 97.0 ABG Base Excess 4.9 FiO2 2L Impressions: Chest X-Ray 04/15/17 19:23 IMPRESSION: No significant interval change. No acute findings. Other findings as noted above. Assessment & Plan - Diagnosis (1) Acute exacerbation of chronic bronchitis Is this a current diagnosis for this admission?: YesPlan: Patient will be started on DuoNeb nebulizer treatment every 8 hours and every 3 hours as needed. Change prednisone p.o. to methylprednisolone 125 mg IV every 6 hours. Restart Spiriva and Symbicort that she uses at home. Guaifenesin twice daily. We will give her 1 g of magnesium sulfate. Continue broad- spectrum antibiotics. (2) Accelerated essential hypertension Is this a current diagnosis for this admission?: YesPlan: Patient will be restarted on her home antihypertensives. Blood pressure presently is 150/80. (3) Wheezing Is this a current diagnosis for this admission?: YesPlan: Improved IV steroids and nebulizer treatment. Will taper steroids (4) COPD with exacerbation Is this a current diagnosis for this admission?: YesPlan: Continue steroids, nebulizers, and antibiotics. (5) Acute on chronic diastolic CHF (congestive heart failure) Is this a current diagnosis for this admission?: YesPlan: Patient at the present time appears euvolemic. Continue Lasix as ordered at home. (6) Severe obesity (BMI 35.0-39.9) with comorbidity Is this a current diagnosis for this admission?: YesPlan: Patient was counseled on the need for weight loss. She may have some obstructive sleep apnea undiagnosed. Will get nocturnal oximetry. - Time Time Spent with patient: 25-34 minutes Critical Time spent with patient: 15-24 minutes Medications reviewed and adjusted accordingly: Yes Anticipated discharge: Home with Homehealth
[2017-04-17] MEDS: CARVEDILOL 6.25 MG TABLET PO SCH (21:54)
[2017-04-17] MEDS: LEVOFLOXACIN 500 MG/D5W RTU 500 MG/100 ML RTUPB IV SCH (21:54)
[2017-04-18] MEDS: HEPARIN SOD (PORCINE) 5,000 UNIT/ML 1 ML SYRINGE SUBCUT SCH (05:55)
[2017-04-18] MEDS: IPRATROPIUM/ALBUTEROL 0.5-2.5 MG/3 ML AMPUL NEB SCH (07:55)
[2017-04-18] MEDS ORDERED: LISINOPRIL 5 MG TABLET PO SCH (10:00)
[2017-04-18] MEDS ORDERED: GABAPENTIN 400 MG CAPSULE PO SCH (10:00)
[2017-04-18] MEDS: FLUTICASONE NASAL SPRAY 50 MCG/SPRY 120 SPRAY/16 GM NASL SCH (10:15)
[2017-04-18] MEDS: AMLODIPINE BESYLATE 10 MG TABLET PO SCH (10:16)
[2017-04-18] MEDS: BUDESONIDE/FORMOTEROL 160-4.5 MCG 60 PUFF/6 GM MDI IH SCH (10:16)
[2017-04-18] MEDS: ASPIRIN 81 MG TABLET, ENT COATED PO SCH (10:16)
[2017-04-18] MEDS: GUAIFENESIN 600 MG TABLET.SA PO SCH (10:16)
[2017-04-18] MEDS: FERROUS SULFATE 325 MG TABLET PO SCH (10:16)
[2017-04-18] MEDS: FUROSEMIDE 40 MG TABLET PO SCH (10:17)
[2017-04-18] MEDS: CARVEDILOL 6.25 MG TABLET PO SCH (10:17)
[2017-04-18] MEDS: METHYLPREDNISOLONE INJ 125 MG/2 ML SDV IV SCH (10:20)
[2017-04-18] MEDS: HYDRALAZINE HCL 50 MG TABLET PO SCH (10:21)
[2017-04-18] MEDS: TIOTROPIUM BROMIDE DPI 5 CAP/KIT (18 MCG/CAP) IH SCH (10:21)
[2017-04-18 12:48] VITALS: BP 158/90
[2017-04-18] MEDS ORDERED: LEVOFLOXACIN 250 MG TABLET PO SCH (22:00)
--- NOTE | 2017-04-19 08:23 | DISCHARGE SUMMARY E ---
Discharge Summary NAME: BOOM TODD : 1955 AGE: 61Y ADMITTED: 04/16/2017 DISCHARGED: 04/18/2017 CODE STATUS: FULL CODE. PRIMARY CARE PROVIDER: Joelle Vidal DISCHARGE DIAGNOSES: Includes: 1. Chronic obstructive pulmonary disease exacerbation. 2. Accelerated hypertension/hypertensive emergency. 3. Acute on chronic diastolic congestive heart failure. 4. Obesity. 5. Acute on chronic hypercapnic respiratory failure. DISCHARGE MEDICATIONS: Include: 1. ProAir HFA 1-2 puffs inhalation q. 4 hours p.r.n., 1 inhaler, 0 refills. 2. Norvasc 10 mg p.o. daily. 3. Aspirin 81 mg p.o. daily. 4. Symbicort HFA 2 puffs inhalation q. 12 hours. 5. Coreg 3.125 mg p.o. b.i.d. 6. Vitamin B12 100 mcg p.o. daily. 7. Ferrous sulfate 324 mg p.o. daily. 8. Flonase 2 sprays nasally daily. 9. Lasix 40 mg p.o. b.i.d. 10. Neurontin 400 mg p.o. q. 12 hours. 11. Apresoline 100 mg p.o. q. 12 hours. 12. Levaquin 250 mg p.o. q. hour of sleep, 5 tablets, 0 refills. 13. Lisinopril 5 mg p.o. daily. 14. Prednisone 60 mg taper. 15. Spiriva 1 puff inhalation daily. 16. Ultram 50 mg p.o. b.i.d. p.r.n. DIET: Heart healthy. ACTIVITY: As tolerated. HISTORY OF PRESENT ILLNESS: The patient is a 61-year-old -Turk[place] female with a past medical history of chronic obstructive pulmonary disease as well as multiple contacts for this. The patient presented to the emergency department with a chief complaint of shortness of breath and cough. The patient had been in her usual state of health until approximately 6 hours prior to presentation where she developed increasing shortness of breath as well as a nonproductive cough while ambulating that was not improved with her nebulizer or rest, prompting evaluation in the emergency department where the patient was found to have uncontrolled hypertension, tachycardia, and COPD exacerbation. The patient was referred to the hospitalist for admission and management. The patient had denied any chest pain. No palpitations. No nausea, vomiting, and admits to some improvement of symptoms upon assessment. The patient also denied any recent medications, but otherwise felt well. HOSPITAL COURSE: The patient was admitted to continuous telemetry unit. The patient was placed on steroids as well as nebulizer scheduled and p.r.n. as well as a supplemental O2. The patient's symptoms improved; however, the patient did have an episode of somnolence, which was felt to be due to possible obstructive sleep apnea and the patient is agreeable to work up this in an outpatient setting. The patient remained afebrile. Her blood pressures were much improved with just resuming the patient's home blood pressure medications. The patient was transitioned to room air and was oxygenating well at that time. The patient was transitioned to oral steroids and is quite eager for discharge. DIAGNOSTICS: Lab values are as follows: Hematology obtained on 04/16/2017: WBCs are 7.0, hemoglobin is 11.3, hematocrit is 35.4, platelet count is 281,000. Blood gas obtained on 04/16/2017: PH is 7.4, PCO2 is 50, PO2 is 92, bicarb is 30, total CO2 is 32, oxygen saturation is 97%. Chemistry obtained on 04/16/2017: CK is 66, CK-MB is 1.29, troponin is 0.012. Magnesium is 1.6, bilirubin is 0.3, AST 15, ALT is 20, Alk phos 107, total protein 6.6, albumin 3.5. Sodium is 146, potassium 3.3, chloride is 106, carbon dioxide is 27, BUN 28, creatinine is 1.52, glucose 103, calcium is 9.3. Chest x-ray obtained on 04/15/2017 reveals no significant interval changes, no acute findings. PHYSICAL EXAMINATION: GENERAL: On examination, the patient is a well-developed, well-nourished 61-year-old -[place] female who is awake, alert, and oriented to person, place, time, and situation. She is verbal, conversational, ambulatory, does not appear to be in any acute distress. VITAL SIGNS: Temperature is 97.9, pulse 80, respirations 16, blood pressure is 158/90, oxygen saturation 95% on room air. SKIN: Warm and dry. No rash. She is not diaphoretic. HEENT: Pupils equal, round, reactive to light and accommodation. Conjunctiva is pink. There is no JVP. CARDIOVASCULAR SYSTEM: Heart is regular. There is no murmur or rub. CHEST: Diminished, but clear, symmetrical. ABDOMEN: Soft, nontender, nondistended. BACK: No CVA tenderness or sacral edema. EXTREMITIES: No clubbing, cyanosis, edema. DISCHARGE PLANNIN. The patient is advised to follow up with a primary care provider within 1 week for hospital followup. 2. The patient is to follow up with Dr. Wick of Cardiology for evaluation of sleep apnea. Discharge time spent on this discharge, including assessment, plan, physical examination, patient education, resource alignment was 25 minutes. DICTATING PHYSICIAN: ISIDORO STEPHEN NP [id number] PHY#: [id number] ID: [id number] JOB#: [id number] ACCT: [id number] cc:COLLIN OCHOA M.D. ISIDORO STEPHEN NP >
== END 2017-04-18 12:56 | disposition home or self-care (01) | DRG 190 ==
LOC: ER 19:05 → UNDOADMOB 04-16 00:16 → EH 04-16 00:16 → 5 04-16 01:03 → EH 04-16 01:03 → 5 04-16 01:11 → OBSVTOIN 04-16 13:13
PROVIDERS: ADMIT Internal Medicine; ATTEND Internal Medicine
PROC: 5A09457 Assistance with Respiratory Ventilation, 24-96 Consecutive Hours, Continuous Positive Airway Pressure (ICD-10-PCS; principal; 2017-04-16)
DX: J44.1 Chronic obstructive pulmonary disease with (acute) exacerbation (principal); I50.33 Acute on chronic diastolic (congestive) heart failure; J96.22 Acute and chronic respiratory failure with hypercapnia; I13.0 Hypertensive heart and chronic kidney disease with heart failure and stage 1 through stage 4 chronic kidney disease, or unspecified chronic kidney disease; I16.1 Hypertensive emergency; N18.3 Chronic kidney disease, stage 3 (moderate); I25.10 Atherosclerotic heart disease of native coronary artery without angina pectoris; E78.5 Hyperlipidemia, unspecified; M10.9 Gout, unspecified; F32.9 Major depressive disorder, single episode, unspecified; I34.0 Nonrheumatic mitral (valve) insufficiency; E66.01 Morbid (severe) obesity due to excess calories; Z99.81 Dependence on supplemental oxygen; Z79.891 Long term (current) use of opiate analgesic; Z82.3 Family history of stroke; Z82.49 Family history of ischemic heart disease and other diseases of the circulatory system; Z79.82 Long term (current) use of aspirin; Z79.52 Long term (current) use of systemic steroids; Z79.899 Other long term (current) drug therapy; Z68.35 Body mass index [BMI] 35.0-35.9, adult; Z98.51 Tubal ligation status
CPT/HCPCS: 36415; 36600; 71020; 80053; 82550; 82553; 82803; 83735; 83880; 84484; 85025; 93005; 93010; 94640; 94660; 94667; 94668; 96374; 96375; 99285; G0378; J1644; J1940; J1956; J2930; J3475; J3490; J7620

== ENCOUNTER 2017-05-14 12:02 | Emergency (ER) | payer MEDICARE, MEDICAID ==
[2017-05-14] MEDS ORDERED: MAGNESIUM SULFATE/D5W 100 ML IV ONE (12:25)
[2017-05-14] MEDS ORDERED: ALBUTEROL SULFATE 0.083% NEB 2.5 MG/3 ML AMPUL NEB ONE (12:25)
[2017-05-14] MEDS ORDERED: PREDNISONE 20 MG TABLET PO ONE (12:25)
[2017-05-14] MEDS ORDERED: IPRATROPIUM/ALBUTEROL 0.5-2.5 MG/3 ML AMPUL NEB ONE (12:26)
--- NOTE | 2017-05-14 12:27 | ER Document Report ---
ED Medical Screen (RME) - General Chief Complaint: Shortness Of Breath Stated Complaint: SHORTNESS OF BREATH Time Seen by Provider: 05/14/17 12:25 TRAVEL OUTSIDE OF THE [place] IN LAST 30 DAYS: No - HPI Patient complains to provider of: Shortness of breath this morning after smoking - Related Data Allergies/Adverse Reactions: No Known Allergies Allergy (Verified 05/14/17 12:18) Past Medical History - Past Medical History Cardiac Medical History: Reports: Hx Congestive Heart Failure, Hx Coronary Artery Disease, Hx Hypercholesterolemia, Hx Hypertension Pulmonary Medical History: Reports: Hx Asthma, Hx Bronchitis, Hx COPD - O2 dependent Denies: Hx Tuberculosis Renal/ Medical History: Denies: Hx Peritoneal Dialysis Musculoskeltal Medical History: Reports Hx Gout Psychiatric Medical History: Reports: Hx Depression Past Surgical History: Reports: Hx Section - x 4, Hx Tubal Ligation - Immunizations Hx Diphtheria, Pertussis, Tetanus Vaccination: Yes Review of Systems - Review of Systems Respiratory: Cough, Short of breath, Wheezing Physical Exam - Vital signs Vitals: Temp Pulse Resp BP Pulse Ox 98.1 F 77 32 H 188/84 H 96 05/14/17 12:18 05/14/17 12:18 05/14/17 12:18 05/14/17 12:18 05/14/17 12:18 - Respiratory Respiratory status: Respiratory distress - Tachypnea, Tachypnea Chest status: Nontender Breath sounds: Rhonchi, Wheezing Chest palpation: Normal Course - Vital Signs Vital signs: Temp Pulse Resp BP Pulse Ox 98.1 F 77 32 H 188/84 H 96 05/14/17 12:18 05/14/17 12:18 05/14/17 12:18 05/14/17 12:18 05/14/17 12:18
[2017-05-14 12:47] LABS: ABSOLUTE BASOPHILS # (AUTO) 0.1 10^3/uL (0.0-0.2); ABSOLUTE EOSINOPHILS # (AUTO) 0.3 10^3/uL (0.0-0.6); ABSOLUTE LYMPHOCYTES (AUTO) 2.6 10^3/uL (0.5-4.7); ABSOLUTE MONOCYTES (AUTO) 0.6 10^3/uL (0.1-1.4); ABSOLUTE NEUT (AUTO) 5.4 10^3/uL (1.7-8.2); EOSINOPHILS % (AUTO) 3.4 % (0-6); HEMATOCRIT 37.1 % (36.0-47.0); HGB HCT DIFFERENCE -1.1; MEAN CORPUSCULAR HEMOGLOBIN 28.5 pg (27.0-33.4); MEAN CORPUSCULAR HGB CONC 32.5 g/dL (32.0-36.0); MEAN CORPUSCULAR VOLUME 88 fl (80-97); MONOCYTES % (AUTO) 6.8 % (3-13); RED BLOOD COUNT 4.22 10^6/uL (3.72-5.28); RED CELL DISTRIBUTION WIDTH 14.8 % (11.5-14.0); SEGMENTED NEUTROPHILS % (AUTO) 59.8 % (42-78); WHITE BLOOD COUNT 9.1 10^3/uL (4.0-10.5)
[2017-05-14 12:49] LABS: VENOUS BLOOD HCO3 28.7 mmol/L (20-32); VENOUS BLOOD PCO2 43.4 mmHg (35-63); VENOUS BLOOD PH 7.44 (7.30-7.42)
--- NOTE | 2017-05-14 12:57 | ER Document Report ---
ED Respiratory Problem - General Chief Complaint: Shortness Of Breath Stated Complaint: SHORTNESS OF BREATH Time Seen by Provider: 05/14/17 12:25 Mode of Arrival: Ambulatory Information source: Patient TRAVEL OUTSIDE OF THE [place] IN LAST 30 DAYS: No - HPI Onset: This morning Duration: Continuous Initiating Event: No: Exposure to chemicals, Exposure to dust, Exposure to fumes , Exposure to mold, Exposure to smoke, Out of meds, URI Quality of pain: No pain Context: Hx asthma Short of Breath: Moderate Cough: Nonproductive At home treatment: Bronchodilators, Oxygen - 3 LITERS CONTINUOUS Associated symptoms: denies: Chest pain/discomfort, Chills, Fever - Related Data Allergies/Adverse Reactions: No Known Allergies Allergy (Verified 05/14/17 12:18) Past Medical History - General Information source: Patient - Social History Smoking Status: Never Smoker Cigarette use (# per day): No Chew tobacco use (# tins/day): No Frequency of alcohol use: None Drug Abuse: None Lives with: Family Family History: CVA, Hypertension Patient has suicidal ideation: No Patient has homicidal ideation: No - Past Medical History Cardiac Medical History: Reports: Hx Congestive Heart Failure, Hx Coronary Artery Disease, Hx Hypercholesterolemia, Hx Hypertension Pulmonary Medical History: Reports: Hx Asthma, Hx Bronchitis, Hx COPD - O2 dependent Denies: Hx Tuberculosis Neurological Medical History: Reports: None Endocrine Medical History: Reports: None Renal/ Medical History: Reports: None. Denies: Hx Peritoneal Dialysis Malignancy Medical History: Reports: None GI Medical History: Reports: None Musculoskeltal Medical History: Reports None, Reports Hx Gout Psychiatric Medical History: Reports: Hx Depression Past Surgical History: Reports: Hx Section - x 4, Hx Tubal Ligation - Immunizations Hx Diphtheria, Pertussis, Tetanus Vaccination: Yes Hx Pneumococcal Vaccination: 05/06/12 Review of Systems - Review of Systems Constitutional: No symptoms reported. denies: Chills, Diaphoresis, Fever EENT: No symptoms reported Cardiovascular: No symptoms reported Respiratory: No symptoms reported Gastrointestinal: No symptoms reported Genitourinary: No symptoms reported Female Genitourinary: Post menopausal Musculoskeletal: No symptoms reported Skin: No symptoms reported Neurological/Psychological: No symptoms reported Physical Exam - Vital signs Vitals: Temp Pulse Resp BP Pulse Ox 98.1 F 77 32 H 188/84 H 96 05/14/17 12:18 05/14/17 12:18 05/14/17 12:18 05/14/17 12:18 05/14/17 12:18 Interpretation: Hypertensive, Tachypneic. No: Tachycardic, Hypoxic - ON SUPPLEMENTAL O2 - General General appearance: Appears well, Alert In distress: Mild - HEENT Head: Normocephalic Eyes: Normal Conjunctiva: Normal Ears: Normal Nasal: Normal Mouth/Lips: Normal Mucous membranes: Normal - Respiratory Respiratory status: Respiratory distress - SLIGHT Chest status: Nontender Breath sounds: Wheezing - EXPIRATORY, MORE ON RIGHT - Cardiovascular Rhythm: Regular Heart sounds: Normal auscultation Murmur: No - Abdominal Inspection: Obese - Back Back: Normal - Extremities General upper extremity: Normal inspection General lower extremity: Normal inspection - Neurological Neuro grossly intact: Yes Cognition: Normal Orientation: AAOx4 - Psychological Associated symptoms: Normal affect, Normal mood - Skin Skin Temperature: Warm Skin Moisture: Dry Skin Color: Normal Skin Turgor: Elastic Course - Re-evaluation Re-evalutation: 05/14/17 16:17 Patient states she feels much better. Appears comfortable. Breathing is unlabored, oxygen saturations are in the low 90s. There are a few end expiratory wheezes, otherwise lungs are clear. - Vital Signs Vital signs: Temp Pulse Resp BP Pulse Ox 98.1 F 77 22 H 156/74 H 97 05/14/17 12:18 05/14/17 12:18 05/14/17 15:01 05/14/17 15:01 05/14/17 15:01 - Laboratory Result Diagrams: 05/14/17 12:36 05/14/17 12:36 Laboratory results interpreted by me: 05/14/17 05/14/17 05/14/17 12:36 12:36 12:36 RDW 14.8 H VBG pH 7.44 H BUN 38 H Creatinine 1.55 H Est GFR ( Amer) 41 L Est GFR (Non-Af Amer) 34 L AST 12 L - Diagnostic Test Radiology reviewed: Image reviewed, Reports reviewed Discharge - Discharge Clinical Impression: Obstructive chronic bronchitis with exacerbation Condition: Stable Disposition: HOME, SELF-CARE Instructions: Chronic Obstructive Lung Disease ([facility]), Inhaled Bronchodilators ( [facility]), Corticosteroid Medication ([facility]) Additional Instructions: TAKE PREDNISONE DIRECTED, BEGIN TOMORROW (MONDAY). CONTINUE USING YOUR NEBULIZER WITH ALBUTEROL PRESCRIBED. CONTINUE ALL OTHER MEDICATIONS USUAL. FOLLOW UP WITH YOUR PRIMARY CAR EPROVIDER NEEDED. RETURN TO E.R. IF YOU GET WORSE, ANY TIME. Prescriptions: Albuterol Sulfate [Albuterol Sulfate 2.5mg/3 mL] 1 vial IH Q4 PRN #60 vial PRN Reason: Shortness Of Breath Prednisone [Deltasone 10 mg Tablet] 10 mg PO ASDIR PRN #21 tablet PRN Reason: Referrals: WENCESLAO PEGUERO DO [Primary Care Provider] - Follow up as needed
[2017-05-14 13:06] LABS: ALANINE AMINOTRANSFERASE 25 U/L (9-52); ALBUMIN 3.7 g/dL (3.5-5.0); ALKALINE PHOSPHATASE 115 U/L (38-126); ANION GAP 13 (5-19); ASPARTATE AMINO TRANSFERASE 12 U/L (14-36); BILIRUBIN,DIRECT 0.3 mg/dL (0.0-0.4); BILIRUBIN,TOTAL 0.5 mg/dL (0.2-1.3); BLOOD UREA NITROGEN 38 mg/dL (7-20); CALCIUM 10.1 mg/dL (8.4-10.2); CARBON DIOXIDE 25 mmol/L (22-30); CHLORIDE 106 mmol/L (98-107); CREATININE RESULT 1.55 mg/dL (0.52-1.25); GLUCOSE 94 mg/dL (75-110); MAGNESIUM 1.7 mg/dL (1.6-2.3); POTASSIUM 3.7 mmol/L (3.6-5.0); SODIUM 143.8 mmol/L (137-145); TOTAL PROTEIN 7.2 g/dL (6.3-8.2)
--- NOTE | 2017-05-14 13:52 | RADIOLOGY REPORT (SQ) ---
EXAM DESCRIPTION: CHEST SINGLE VIEW COMPLETED DATE/TIME: 05/14/2017 1:43 pm REASON FOR STUDY: sob COMPARISON: 04/15/2017 EXAM PARAMETERS: NUMBER OF VIEWS: One view. TECHNIQUE: Single frontal radiographic view of the chest acquired. RADIATION DOSE: NA LIMITATIONS: None. FINDINGS: LUNGS AND PLEURA: No opacities, masses or pneumothorax. No pleural effusion. MEDIASTINUM AND HILAR STRUCTURES: No masses. Contour normal. HEART AND VASCULAR STRUCTURES: Heart normal in size. Normal vasculature. BONES: No acute findings. HARDWARE: None in the chest. OTHER: No other significant finding. IMPRESSION: NO ACUTE RADIOGRAPHIC FINDING IN THE CHEST. TECHNICAL DOCUMENTATION: JOB ID: [id number]
--- NOTE | 2017-05-14 15:16 | EKG REPORT ---
SEVERITY:- ABNORMAL ECG - SINUS RHYTHM LVH WITH IVCD AND SECONDARY REPOL ABNRM : Confirmed by: Lauren Wick 14-May-2017 15:15:31
[2017-05-14 16:50] VITALS: BP 154/78
== END 2017-05-14 16:40 | disposition home or self-care (01) ==
LOC: ER 12:02
DX: J44.1 Chronic obstructive pulmonary disease with (acute) exacerbation (principal); Z99.81 Dependence on supplemental oxygen; Z79.899 Other long term (current) drug therapy; I25.10 Atherosclerotic heart disease of native coronary artery without angina pectoris; I10 Essential (primary) hypertension
CPT/HCPCS: 93005; 94640 ×2; 99285; 96365; 36415; 83735; 85025; 80053; 82803; 71010; 93010; J3475; A9270 ×3; J7512; J7620

== ENCOUNTER 2017-06-14 03:07 | Emergency (ER) | payer MEDICARE, MEDICAID ==
[2017-06-14] MEDS ORDERED: IPRATROPIUM/ALBUTEROL 0.5-2.5 MG/3 ML AMPUL NEB ONE ×2 (03:11)
[2017-06-14] MEDS ORDERED: METHYLPREDNISOLONE INJ 125 MG/2 ML SDV IV ONE (03:11)
--- NOTE | 2017-06-14 03:15 | ER Document Report ---
ED General - General Stated Complaint: SHORTNESS OF BREATH Time Seen by Provider: 06/14/17 03:11 Mode of Arrival: Medic Information source: Patient, Emergency Med Personnel Notes: 61-year-old female history of COPD CHF bronchitis asthma who is on 2 L nasal cannula at home at all times presents from sleep study with respiratory distress. Patient notes she did not take her breathing treatments tonight. Patient was noted to be satting 89% when she was found by EMS on CPAP, patient was given to breathing treatments 1 DuoNeb 1 albuterol prior to arrival TRAVEL OUTSIDE OF THE [place] IN LAST 30 DAYS: No - HPI Onset: Just prior to arrival Onset/Duration: Sudden Quality of pain: No pain Severity: Moderate Pain Level: Denies Associated symptoms: Nonproductive cough, Hurts to breath, Shortness of breath Exacerbated by: Walking Relieved by: Denies Similar symptoms previously: Yes Recently seen / treated by doctor: Yes - Related Data Allergies/Adverse Reactions: No Known Allergies Allergy (Verified 05/14/17 12:18) Past Medical History - Social History Smoking Status: Current Every Day Smoker Cigarette use (# per day): Yes Chew tobacco use (# tins/day): No Smoking Education Provided: No Family History: CVA, Hypertension - Past Medical History Cardiac Medical History: Reports: Hx Congestive Heart Failure, Hx Coronary Artery Disease, Hx Hypercholesterolemia, Hx Hypertension Pulmonary Medical History: Reports: Hx Asthma, Hx Bronchitis, Hx COPD - O2 dependent Denies: Hx Tuberculosis Renal/ Medical History: Denies: Hx Peritoneal Dialysis Musculoskeltal Medical History: Reports Hx Gout Psychiatric Medical History: Reports: Hx Depression Past Surgical History: Reports: Hx Section - x 4, Hx Tubal Ligation - Immunizations Hx Diphtheria, Pertussis, Tetanus Vaccination: Yes Hx Pneumococcal Vaccination: 05/06/12 Review of Systems - Review of Systems Notes: REVIEW OF SYSTEMS: CONSTITUTIONAL : Denies fever, chills, or sweats. Denies recent illness. EENT: Denies eye, ear, throat, or mouth pain or symptoms. Denies nasal or sinus congestion or discharge. Denies throat, tongue, or mouth swelling or difficulty swallowing. CARDIOVASCULAR: Denies chest pain. Denies palpitations or racing or irregular heart beat. Denies ankle edema. RESPIRATORY: Admits shortness of breath difficulty breathing nonproductive cough GASTROINTESTINAL: Denies abdominal pain or distention. Denies nausea, vomiting , or diarrhea. Denies blood in vomitus, stools, or per rectum. Denies black, tarry stools. Denies constipation. GENITOURINARY: Denies difficulty urinating, painful urination, burning, frequency, blood in urine, or discharge. FEMALE GENITOURINARY: Denies vaginal bleeding, heavy or abnormal periods, irregular periods. Denies vaginal discharge or odor. MUSCULOSKELETAL: Denies back or neck pain or stiffness. Denies joint pain or swelling. SKIN: Denies rash, lesions or sores. HEMATOLOGIC : Denies easy bruising or bleeding. LYMPHATIC: Denies swollen, enlarged glands. NEUROLOGICAL: Denies confusion or altered mental status. Denies passing out or loss of consciousness. Denies dizziness or lightheadedness. Denies headache. Denies weakness or paralysis or loss of use of either side. Denies problems with gait or speech. Denies sensory loss, numbness, or tingling. Denies seizures. PSYCHIATRIC: Denies anxiety or stress. Denies depression, suicidal ideation, or homicidal ideation. ALL OTHER SYSTEMS REVIEWED AND NEGATIVE. PHYSICAL EXAMINATION: GENERAL: Well-appearing, well-nourished and in moderate respiratory distress HEAD: Atraumatic, normocephalic. EYES: Pupils equal round and reactive to light, extraocular movements intact, conjunctiva are normal. ENT: Nares patent, oropharynx clear without exudates. Moist mucous membranes. NECK: Normal range of motion, supple without lymphadenopathy LUNGS: Coarse rhonchi all throughout using accessory muscles to breathe HEART: Regular rate and rhythm without murmurs ABDOMEN: Soft, nontender, nondistended abdomen. No guarding, no rebound. No masses appreciated. Female : deferred Musculoskeletal: Normal range of motion, no pitting or edema. No cyanosis. NEUROLOGICAL: Cranial nerves grossly intact. Normal speech, normal gait. Normal sensory, motor exams PSYCH: Normal mood, normal affect. SKIN: Warm, Dry, normal turgor, no rashes or lesions noted. Dictation was performed using [employer] voice recognition software Course - Re-evaluation Re-evalutation: 06/14/17 03:15 Patient will be started on duo nebs Solu-Medrol lab work imaging pending 06/14/17 03:53 After breathing treatments patient looks much better, she is in no significant distress at this time, her coarse wheezing has improved significantly on the left she does still have some coarse breath sounds on the right 06/14/17 04:52 Patient is satting 98% on her baseline 2 L nasal cannula, she notes that normally she only sats between 91-95%, given that she feels much better wishes to be discharged I will discharge her at her request. Patient has been instructed to return immediately if there is any worsening concerns After performing a Medical Screening Examination, I estimate there is LOW risk for ACUTE CORONARY SYNDROME, RESPIRATORY FAILURE, SEPSIS OR MENINGITIS, thus I consider the discharge disposition reasonable. I have reevaluated this patient multiple times and no significant life threatening changes are noted. The patient and I have discussed the diagnosis and risks, and we agree with discharging home with close follow-up. We also discussed returning to the Emergency Department immediately if new or worsening symptoms occur. We have discussed the symptoms which are most concerning (e.g., changing or worsening pain, trouble swallowing or breathing, neck stiffness, fever) that necessitate immediate return. - Laboratory Result Diagrams: 06/14/17 03:20 06/14/17 03:20 Laboratory results interpreted by me: 06/14/17 06/14/17 03:20 03:20 WBC 11.4 H RBC 3.55 L Hgb 10.1 L Hct 30.9 L Sodium 147.2 H Potassium 3.1 L Chloride 108 H BUN 23 H Creatinine 1.35 H Est GFR ( Amer) 48 L Est GFR (Non-Af Amer) 40 L - Diagnostic Test Radiology reviewed: Image reviewed, Reports reviewed - EKG Interpretation by Me EKG shows normal: Sinus rhythm, [place], Intervals, QRS Complexes Discharge - Discharge Clinical Impression: Obstructive chronic bronchitis with exacerbation, Hypokalemia Acute on chronic respiratory failure Qualifiers: Respiratory failure complication: hypoxia Qualified Code(s): J96.21 - Acute and chronic respiratory failure with hypoxia Dyspnea Qualifiers: Dyspnea type: dyspnea on exertion Qualified Code(s): R06.09 - Other forms of dyspnea Condition: Stable Disposition: HOME, SELF-CARE Instructions: Chronic Obstructive Lung Disease ([facility]) Prescriptions: Prednisone [Deltasone 20 mg Tablet] 3 tab PO DAILY 5 Days Referrals: WENCESLAO PEGUERO DO [Primary Care Provider] - Follow up tomorrow
[2017-06-14] MEDS ORDERED: MAGNESIUM SULFATE/D5W 100 ML IV PRN (03:28)
[2017-06-14] MEDS ORDERED: MAGNESIUM SULFATE/D5W 2 GM/200 ML RTUPB IV ONE (03:32)
[2017-06-14 03:33] LABS: ABSOLUTE BASOPHILS # (AUTO) 0.1 10^3/uL (0.0-0.2); ABSOLUTE EOSINOPHILS # (AUTO) 0.5 10^3/uL (0.0-0.6); ABSOLUTE LYMPHOCYTES (AUTO) 3.1 10^3/uL (0.5-4.7); ABSOLUTE MONOCYTES (AUTO) 0.8 10^3/uL (0.1-1.4); BASOPHILS % (AUTO) 0.5 % (0-2); EOSINOPHILS % (AUTO) 4.5 % (0-6); HEMATOCRIT 30.9 % (36.0-47.0); HEMOGLOBIN 10.1 g/dL (12.0-15.5); HGB HCT DIFFERENCE -0.6; LYMPHOCYTES % (AUTO) 26.8 % (13-45); MEAN CORPUSCULAR HEMOGLOBIN 28.5 pg (27.0-33.4); MEAN CORPUSCULAR HGB CONC 32.7 g/dL (32.0-36.0); MEAN CORPUSCULAR VOLUME 87 fl (80-97); RED BLOOD COUNT 3.55 10^6/uL (3.72-5.28); RED CELL DISTRIBUTION WIDTH 13.5 % (11.5-14.0); SEGMENTED NEUTROPHILS % (AUTO) 61.2 % (42-78); WHITE BLOOD COUNT 11.4 10^3/uL (4.0-10.5)
[2017-06-14 03:58] LABS: VENOUS BLOOD BASE EXCESS 3.4 mmol/L; VENOUS BLOOD HCO3 28.9 mmol/L (20-32); VENOUS BLOOD PCO2 48.1 mmHg (35-63); VENOUS BLOOD PH 7.4 (7.30-7.42)
[2017-06-14 04:04] LABS: ALANINE AMINOTRANSFERASE 18 U/L (9-52); ALBUMIN 3.6 g/dL (3.5-5.0); ALKALINE PHOSPHATASE 123 U/L (38-126); ANION GAP 13 (5-19); ASPARTATE AMINO TRANSFERASE 14 U/L (14-36); BILIRUBIN,DIRECT 0.3 mg/dL (0.0-0.4); BILIRUBIN,TOTAL 0.4 mg/dL (0.2-1.3); BLOOD UREA NITROGEN 23 mg/dL (7-20); CALCIUM 9.3 mg/dL (8.4-10.2); CARBON DIOXIDE 26 mmol/L (22-30); CHLORIDE 108 mmol/L (98-107); CREATININE RESULT 1.35 mg/dL (0.52-1.25); GLUCOSE 94 mg/dL (75-110); POTASSIUM 3.1 mmol/L (3.6-5.0); SODIUM 147.2 mmol/L (137-145)
[2017-06-14] MEDS ORDERED: POTASSIUM CHLORIDE 10 MEQ TABLET.SA PO ONE (04:12)
--- NOTE | 2017-06-14 04:54 | RADIOLOGY REPORT (SQ) ---
EXAM DESCRIPTION: CHEST SINGLE VIEW COMPLETED DATE/TIME: 06/14/2017 3:12 am REASON FOR STUDY: resp distress COMPARISON: 05/14/2017. EXAM PARAMETERS: NUMBER OF VIEWS: One view. TECHNIQUE: Single frontal radiographic view of the chest acquired. RADIATION DOSE: NA LIMITATIONS: None. FINDINGS: LUNGS AND PLEURA: Mild interstitial markings. MEDIASTINUM AND HILAR STRUCTURES: No masses. Contour normal. HEART AND VASCULAR STRUCTURES: Heart normal in size. Atherosclerosis. BONES: No acute findings. HARDWARE: None in the chest. OTHER: No other significant finding. IMPRESSION: No acute cardiopulmonary findings. TECHNICAL DOCUMENTATION: JOB ID: [id number]
[2017-06-14 06:27] VITALS: BP 161/73
--- NOTE | 2017-06-14 17:38 | EKG REPORT ---
SEVERITY:- ABNORMAL ECG - SINUS RHYTHM VENTRICULAR PREMATURE COMPLEX PROBABLE LEFT ATRIAL ABNORMALITY LVH WITH IVCD AND SECONDARY REPOL ABNRM : Confirmed by: Leana Chavez MD 14-Jun-2017 17:37:45
== END 2017-06-14 06:20 | disposition home or self-care (01) ==
LOC: ER 03:07
DX: J96.21 Acute and chronic respiratory failure with hypoxia (principal); J44.1 Chronic obstructive pulmonary disease with (acute) exacerbation; Z99.81 Dependence on supplemental oxygen; E87.6 Hypokalemia; R05 Cough; R07.1 Chest pain on breathing; I25.10 Atherosclerotic heart disease of native coronary artery without angina pectoris; I10 Essential (primary) hypertension
CPT/HCPCS: 93005; 94640 ×2; 99285; 96375; 96365; 36415; 85025; 80053; 82803; 83880; 71010; 93010; J2930; J3475; A9270; J7620

== ENCOUNTER 2017-07-20 07:11 | Emergency (ER) | payer MEDICARE, MEDICAID ==
[2017-07-20] MEDS ORDERED: IPRATROPIUM/ALBUTEROL 0.5-2.5 MG/3 ML AMPUL NEB ONE (07:32)
--- NOTE | 2017-07-20 07:33 | ER Document Report ---
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 They did give her 2 albuterol treatments and Solu-Medrol on the ambulance on the way over and she does feel some better. She denies any chest pain, nausea, vomiting. She denies any fevers or chills, productive cough. she does have albuterol at home but was at the doctor's office so did not try this. Patient is usually on 2 L of oxygen at home. TRAVEL OUTSIDE OF THE [place] IN LAST 30 DAYS: No - Related Data Allergies/Adverse Reactions: No Known Allergies Allergy (Verified 05/14/17 12:18) Past Medical History - General Information source: Patient - Social History Smoking Status: Former Smoker Family History: CVA, Hypertension - Past Medical History Cardiac Medical History: Reports: Hx Congestive Heart Failure, Hx Coronary Artery Disease, Hx Hypercholesterolemia, Hx Hypertension Pulmonary Medical History: Reports: Hx Asthma, Hx Bronchitis, Hx COPD - O2 dependent Denies: Hx Tuberculosis Renal/ Medical History: Denies: Hx Peritoneal Dialysis Musculoskeltal Medical History: Reports Hx Gout Psychiatric Medical History: Reports: Hx Depression Past Surgical History: Reports: Hx Section - x 4, Hx Tubal Ligation - Immunizations Hx Diphtheria, Pertussis, Tetanus Vaccination: Yes Hx Pneumococcal Vaccination: 05/06/12 Review of Systems - Review of Systems Constitutional: No symptoms reported EENT: No symptoms reported Cardiovascular: No symptoms reported Respiratory: See HPI Gastrointestinal: No symptoms reported Genitourinary: No symptoms reported Female Genitourinary: No symptoms reported Musculoskeletal: No symptoms reported Skin: No symptoms reported Hematologic/Lymphatic: No symptoms reported Neurological/Psychological: No symptoms reported Physical Exam - Vital signs Vitals: Resp Pulse Ox 20 96 07/20/17 07:21 07/20/17 07:21 - Notes Notes: PHYSICAL EXAMINATION: GENERAL: On nasal cannula oxygen, but in no acute distress. HEAD: Atraumatic, normocephalic. EYES: Pupils equal round and reactive to light, extraocular movements intact, sclera anicteric, conjunctiva are normal. ENT: ear canals without erythema or foreign body, TMs pearly trujillo with good bony landmarks, nares patent, oropharynx clear without exudates. Moist mucous membranes. Airway patent NECK: Normal range of motion, supple without lymphadenopathy LUNGS: Moderate wheezes throughout, no rales or rhonchi. HEART: Regular rate and rhythm without murmurs ABDOMEN: Soft, no tenderness. No guarding, no rebound EXTREMITIES: Normal range of motion, no pitting edema. No cyanosis. NEUROLOGICAL: Cranial nerves grossly intact. Normal sensory/motor exams. PSYCH: Normal mood, normal affect. SKIN: Warm, Dry, normal turgor, no rashes or lesions noted Course - Re-evaluation Re-evalutation: 07/20/17 17:58 Patient felt much better after multiple breathing treatments here in the emergency department. We did keep her on her regular 2 L that she is also on at home of oxygen. Patient received Solu-Medrol on ambulance already. She does have a urinary tract infection on urinalysis today, I will treat her for that. She also had a low potassium at 2.9. She was here for greater than 4 hours to receive IV potassium and p.o. potassium. Patient feels much better on discharge and was wanting to go home. I did send her home with an albuterol inhaler from here. I will treat her with Cipro for her UTI. Culture is pending. - Vital Signs Vital signs: Temp Pulse Resp BP Pulse Ox 97.8 F 27 H 168/88 H 93 07/20/17 13:01 07/20/17 13:01 07/20/17 13:01 07/20/17 13:01 - Laboratory Result Diagrams: 07/20/17 07:24 07/20/17 07:24 Laboratory results interpreted by me: 07/20/17 07/20/17 07/20/17 07:24 07:24 10:08 RBC 3.25 L Hgb 9.2 L Hct 27.1 L RDW 14.6 H Sodium 145.4 H Potassium 2.9 L* BUN 28 H Creatinine 1.41 H Est GFR ( Amer) 46 L Est GFR (Non-Af Amer) 38 L Calcium 10.4 H Urine Protein >=500 H Ur Leukocyte Esterase LARGE H Discharge - Discharge Clinical Impression: COPD with exacerbation, Hypokalemia UTI (urinary tract infection) Qualifiers: Urinary tract infection type: site unspecified Hematuria presence: with hematuria Qualified Code(s): N39.0 - Urinary tract infection, site not specified Condition: Stable Disposition: HOME, SELF-CARE Additional Instructions: Return immediately for any new or worsening symptoms. Follow up with primary care provider, call tomorrow to make followup appointment. Prescriptions: Ciprofloxacin HCl [Cipro 500 mg Tablet] 500 mg PO BID #14 tablet
[2017-07-20 07:41] LABS: ABSOLUTE BASOPHILS # (AUTO) 0.1 10^3/uL (0.0-0.2); ABSOLUTE EOSINOPHILS # (AUTO) 0.5 10^3/uL (0.0-0.6); ABSOLUTE LYMPHOCYTES (AUTO) 3.1 10^3/uL (0.5-4.7); ABSOLUTE MONOCYTES (AUTO) 0.8 10^3/uL (0.1-1.4); ABSOLUTE NEUT (AUTO) 6.1 10^3/uL (1.7-8.2); BASOPHILS % (AUTO) 1.2 % (0-2); EOSINOPHILS % (AUTO) 4.4 % (0-6); HEMATOCRIT 27.1 % (36.0-47.0); HEMOGLOBIN 9.2 g/dL (12.0-15.5); HGB HCT DIFFERENCE 0.5; LYMPHOCYTES % (AUTO) 29.4 % (13-45); MEAN CORPUSCULAR HEMOGLOBIN 28.4 pg (27.0-33.4); MEAN CORPUSCULAR VOLUME 83 fl (80-97); MONOCYTES % (AUTO) 7.3 % (3-13); RED BLOOD COUNT 3.25 10^6/uL (3.72-5.28); RED CELL DISTRIBUTION WIDTH 14.6 % (11.5-14.0); SEGMENTED NEUTROPHILS % (AUTO) 57.7 % (42-78); WHITE BLOOD COUNT 10.5 10^3/uL (4.0-10.5)
[2017-07-20 07:45] LABS: VENOUS BLOOD BASE EXCESS 4.4 mmol/L; VENOUS BLOOD HCO3 30.5 mmol/L (20-32); VENOUS BLOOD PCO2 50.5 mmHg (35-63); VENOUS BLOOD PH 7.4 (7.30-7.42)
[2017-07-20 08:00] LABS: ALANINE AMINOTRANSFERASE 17 U/L (9-52); ALBUMIN 3.8 g/dL (3.5-5.0); ALKALINE PHOSPHATASE 107 U/L (38-126); ANION GAP 10 (5-19); ASPARTATE AMINO TRANSFERASE 19 U/L (14-36); BILIRUBIN,DIRECT 0.4 mg/dL (0.0-0.4); BILIRUBIN,TOTAL 0.5 mg/dL (0.2-1.3); BLOOD UREA NITROGEN 28 mg/dL (7-20); CALCIUM 10.4 mg/dL (8.4-10.2); CARBON DIOXIDE 30 mmol/L (22-30); CHLORIDE 105 mmol/L (98-107); CREATININE RESULT 1.41 mg/dL (0.52-1.25); GLUCOSE 108 mg/dL (75-110); SODIUM 145.4 mmol/L (137-145); TOTAL PROTEIN 7.9 g/dL (6.3-8.2)
--- NOTE | 2017-07-20 08:06 | RADIOLOGY REPORT (SQ) ---
EXAM DESCRIPTION: CHEST SINGLE VIEW COMPLETED DATE/TIME: 07/20/2017 7:54 am REASON FOR STUDY: sob, wheezing, rhonchi COMPARISON: 06/14/2017. EXAM PARAMETERS: NUMBER OF VIEWS: One view. TECHNIQUE: Single frontal radiographic view of the chest acquired. RADIATION DOSE: NA LIMITATIONS: None. FINDINGS: LUNGS AND PLEURA: Mild interstitial markings. Moderate lung volumes. MEDIASTINUM AND HILAR STRUCTURES: No masses. Contour normal. HEART AND VASCULAR STRUCTURES: Moderate enlargement of the cardiac silhouette. Atherosclerosis. BONES: No acute findings. HARDWARE: None in the chest. OTHER: No other significant finding. IMPRESSION: No significant interval change. Mild chronic interstitial lung disease pattern. TECHNICAL DOCUMENTATION: JOB ID: [id number]
[2017-07-20 08:09] LABS: POTASSIUM 2.9 mmol/L (3.6-5.0)
[2017-07-20] MEDS ORDERED: POTASSIUM CHLORIDE 10 MEQ TABLET.SA PO ONE (08:27)
[2017-07-20] MEDS: POTASSI CL 20 MEQ/50 ML RIDER 20 MEQ/50 ML RTUPB IV SCH ×2 (09:11→11:11)
[2017-07-20 10:30] LABS: APPEARANCE,URINE CLOUDY; BILIRUBIN,URINE NEGATIVE (NEGATIVE); GLUCOSE, URINE NEGATIVE (NEGATIVE); KETONES,URINE NEGATIVE (NEGATIVE); LEUKOCYTE ESTERASE,URINE LARGE (NEGATIVE); NITRITE,URINE NEGATIVE (NEGATIVE); PROTEIN,URINE >=500 mg/dL (NEGATIVE); URINE SPECIFIC GRAVITY 1.009; UROBILINOGEN,URINE NEGATIVE mg/dL (<2.0)
[2017-07-20] MEDS ORDERED: ALBUTEROL SULFATE 0.083% NEB 2.5 MG/3 ML AMPUL NEB ONE (11:05)
[2017-07-20] MEDS ORDERED: ALBUTEROL SULFATE HFA (90 MCG/PUFF) 8 GM MDI (1 MDI/ER DISP) IH PRN (12:59)
[2017-07-20 13:39] VITALS: BP 168/88
== END 2017-07-20 13:40 | disposition home or self-care (01) ==
LOC: ER 07:11
DX: N39.0 Urinary tract infection, site not specified (principal); J44.1 Chronic obstructive pulmonary disease with (acute) exacerbation; E87.6 Hypokalemia; R06.02 Shortness of breath; I50.9 Heart failure, unspecified; Z87.891 Personal history of nicotine dependence
CPT/HCPCS: 94640 ×2; 99285; 96365; 96366; 36415; 85025; 80053; 81001; 82803; 83880; 71010; J3480; A9270 ×3; J3490; J7620

== ENCOUNTER 2017-07-21 23:48 | Inpatient (IN) | payer MEDICARE, MEDICAID ==
[2017-07-22 00:38] LABS: ABSOLUTE BASOPHILS # (AUTO) 0.1 10^3/uL (0.0-0.2); ABSOLUTE EOSINOPHILS # (AUTO) 0.1 10^3/uL (0.0-0.6); ABSOLUTE LYMPHOCYTES (AUTO) 2.9 10^3/uL (0.5-4.7); ABSOLUTE MONOCYTES (AUTO) 0.9 10^3/uL (0.1-1.4); ABSOLUTE NEUT (AUTO) 14.4 10^3/uL (1.7-8.2); BASOPHILS % (AUTO) 0.5 % (0-2); EOSINOPHILS % (AUTO) 0.5 % (0-6); HEMATOCRIT 29.8 % (36.0-47.0); HEMOGLOBIN 9.7 g/dL (12.0-15.5); HGB HCT DIFFERENCE -0.7; LYMPHOCYTES % (AUTO) 15.6 % (13-45); MEAN CORPUSCULAR HEMOGLOBIN 27.6 pg (27.0-33.4); MEAN CORPUSCULAR HGB CONC 32.5 g/dL (32.0-36.0); MEAN CORPUSCULAR VOLUME 85 fl (80-97); MONOCYTES % (AUTO) 4.9 % (3-13); RED BLOOD COUNT 3.52 10^6/uL (3.72-5.28); RED CELL DISTRIBUTION WIDTH 14.8 % (11.5-14.0); SEGMENTED NEUTROPHILS % (AUTO) 78.5 % (42-78); WHITE BLOOD COUNT 18.4 10^3/uL (4.0-10.5)
[2017-07-22 00:50] LABS: ALANINE AMINOTRANSFERASE 16 U/L (9-52); ALBUMIN 3.9 g/dL (3.5-5.0); ALKALINE PHOSPHATASE 93 U/L (38-126); ASPARTATE AMINO TRANSFERASE 15 U/L (14-36); BILIRUBIN,DIRECT 0.4 mg/dL (0.0-0.4); BILIRUBIN,TOTAL 0.4 mg/dL (0.2-1.3); BLOOD UREA NITROGEN 35 mg/dL (7-20); CALCIUM 9.9 mg/dL (8.4-10.2); CARBON DIOXIDE 22 mmol/L (22-30); CREATININE RESULT 1.84 mg/dL (0.52-1.25); GLUCOSE 87 mg/dL (75-110); TOTAL PROTEIN 7.5 g/dL (6.3-8.2)
[2017-07-22] MEDS ORDERED: IPRATROPIUM/ALBUTEROL 0.5-2.5 MG/3 ML AMPUL NEB ONE (01:04)
[2017-07-22] MEDS ORDERED: AZITHROMYCIN 250 MG TABLET PO ONE (01:05)
[2017-07-22 01:07] LABS: CHLORIDE 106 mmol/L (98-107); SODIUM 148.3 mmol/L (137-145)
[2017-07-22] MEDS ORDERED: METHYLPREDNISOLONE INJ 125 MG/2 ML SDV IV ONE ×2 (01:08→08:30)
[2017-07-22 01:09] LABS: ANION GAP 20 (5-19)
--- NOTE | 2017-07-22 01:11 | ER Document Report ---
ED General - General Stated Complaint: DIFFICULTY BREATHING Time Seen by Provider: 07/21/17 23:52 Notes: Patient is a 61-year-old female with a past medical history of COPD, CHF, hypertension, tobacco abuse who presents with 3 days of progressively worsening shortness of breath, cough and feeling generally unwell. She was seen in the emergency department 2 days ago and at that time started back on albuterol inhalers and given a single dose of steroids but not sent home on steroids. She states that over the last 24 hours she has had progressively worsening of her shortness of breath and cough. She has been using albuterol inhaler with no improvement at home. Exertion worsens her symptoms. States this feels similar to when she has had to be hospitalized in the past for COPD. She denies any chest pain, fever, or altered mental status. TRAVEL OUTSIDE OF THE [place] IN LAST 30 DAYS: No - Related Data Allergies/Adverse Reactions: No Known Allergies Allergy (Verified 05/14/17 12:18) Past Medical History - General Information source: Patient - Social History Smoking Status: Current Every Day Smoker Frequency of alcohol use: None Drug Abuse: None Lives with: Family Family History: CVA, Hypertension - Past Medical History Cardiac Medical History: Reports: Hx Congestive Heart Failure, Hx Coronary Artery Disease, Hx Hypercholesterolemia, Hx Hypertension Pulmonary Medical History: Reports: Hx Asthma, Hx Bronchitis, Hx COPD - O2 dependent Denies: Hx Tuberculosis Renal/ Medical History: Denies: Hx Peritoneal Dialysis Musculoskeltal Medical History: Reports Hx Gout Psychiatric Medical History: Reports: Hx Depression Past Surgical History: Reports: Hx Section - x 4, Hx Tubal Ligation - Immunizations Hx Diphtheria, Pertussis, Tetanus Vaccination: Yes Hx Pneumococcal Vaccination: 05/06/12 Review of Systems - Review of Systems Notes: Constitutional: Negative for fever. HENT: Negative for sore throat. Eyes: Negative for visual changes. Cardiovascular: Negative for chest pain. Respiratory: Positive for shortness of breath. Gastrointestinal: Negative for abdominal pain, vomiting or diarrhea. Genitourinary: Negative for dysuria. Musculoskeletal: Negative for back pain. Skin: Negative for rash. Neurological: Negative for headaches, weakness or numbness. 10 point ROS negative except as marked above and in HPI. Physical Exam - Vital signs Interpretation: Hypertensive, Tachypneic Notes: PHYSICAL EXAMINATION: GENERAL: Appears somewhat uncomfortable, somewhat lethargic but responds appropriate to questions. In moderate respiratory distress HEAD: Atraumatic, normocephalic. EYES: Pupils equal round and reactive to light, extraocular movements intact, sclera anicteric, conjunctiva are normal. ENT: nares patent, oropharynx clear without exudates. Moderately dry mucous membranes. NECK: Normal range of motion, supple without lymphadenopathy LUNGS: Tight air movement in all lung tan with prolonged expiratory phase. Expiratory wheezing throughout with associated rhonchi. HEART: Regular rate and rhythm without murmurs ABDOMEN: Soft, nontender, normoactive bowel sounds. No guarding, no rebound. No masses appreciated. EXTREMITIES: Normal range of motion, trace edema in the bilateral lower extremities. NEUROLOGICAL: No focal neurological deficits. Moves all extremities spontaneously and on command. PSYCH: Mildly lethargic SKIN: Warm, Dry, normal turgor, no rashes or lesions noted. Course - Re-evaluation Re-evalutation: 07/22/17 01:10 Patient arrives tachypnea, and mild respiratory distress respiratory rate is initially 28 time of assessment. She is able to speak in 5-6 word sentences but does have labored breathing. She was seen here 2 days ago for similar presentation and discharged home although unfortunately not on an outpatient course of steroids at that time. Patient had been placed on continuous nebulizers by EMS although she arrives and continues to sound quite wheezy, tight with associated transmitted upper airway noises. She was immediately placed on a continuous albuterol ipratropium nebulizer, IV magnesium was started. Will obtain a repeat chest x-ray and laboratories. She is critically ill at this time due to her respiratory distress. 0120 patient continues to have tight air movement, ongoing wheezing and transmitted upper airway noises. She remains moderately tachypneic respiratory rate is 26 at this time. Will continue to monitor closely. Laboratories do show worsening renal function with creatinine now increasing to 1.8. Her potassium remains persistently low despite repletion on her prior visit. 07/22/17 01:57 Patient remains moderately tachypneic respiratory rate 26 although her overall work of breathing is somewhat improved. Her lung exam however continues to be very poor with diffuse wheezing, rhonchi and wheezing. I have discussed with the patient that I feel that she is not safe for outpatient management. I discussed the hospitalist who is agreeable to admission. I do not believe the patient needs BiPAP at this time. Will continue to monitor while she is here in the department. - Laboratory Result Diagrams: 07/22/17 00:28 07/22/17 00:28 Laboratory results interpreted by me: 07/22/17 07/22/17 07/22/17 00:28 00:28 00:28 WBC 18.4 H RBC 3.52 L Hgb 9.7 L Hct 29.8 L RDW 14.8 H Seg Neutrophils % 78.5 H Absolute Neutrophils 14.4 H Sodium 148.3 H Potassium 3.0 L* Anion Gap 20 H BUN 35 H Creatinine 1.84 H Est GFR ( Amer) 34 L Est GFR (Non-Af Amer) 28 L NT-Pro-B Natriuret Pep 1200 H - Diagnostic Test Radiology reviewed: Image reviewed, Reports reviewed Radiology results interpreted by me: 07/22/17 01:58 Chest x-ray: No acute infiltrate or pneumothorax - EKG Interpretation by Me Additional EKG results interpreted by me: 07/22/17 01:58 Sinus rhythm. Rate 91. No ST elevations or depressions. QTC is 473. Critical Care Note - Critical Care Note Total time excluding time spent on procedures (mins): 36 Comments: Critical care time spent obtaining history from patient or surrogate, discussions with consultants, development of treatment plan with patient or surrogate, evaluation of patient's response to treatment, examination of patient , ordering and performing treatments and interventions, ordering and review of laboratory studies, re-evaluation of patient's condition, ordering and review of radiographic studies and review of old charts Discharge - Discharge Clinical Impression: Respiratory distress, COPD exacerbation Leukocytosis Qualifiers: Leukocytosis type: unspecified Qualified Code(s): D72.829 - Elevated white blood cell count, unspecified Condition: Fair Disposition: ADMITTED INPATIENT Admitting Provider: Hospitalist - [facility] Admitted: Telemetry Referrals: WENCESLAO PEGUERO DO [Primary Care Provider] - Follow up as needed
[2017-07-22] MEDS: MAGNESIUM SULFATE/D5W 1 GM/100 ML RTUPB IV SCH ×2 (01:25→03:00)
--- NOTE | 2017-07-22 01:34 | RADIOLOGY REPORT (SQ) ---
EXAM DESCRIPTION: CHEST SINGLE VIEW COMPLETED DATE/TIME: 07/22/2017 1:20 am REASON FOR STUDY: difficulty breathing COMPARISON: Chest x-ray 07/20/2017, 06/14/2017. EXAM PARAMETERS: NUMBER OF VIEWS: One view. TECHNIQUE: Single frontal radiographic view of the chest acquired. RADIATION DOSE: NA LIMITATIONS: None. FINDINGS: LUNGS AND PLEURA: No consolidation, pneumothorax or pleural effusion. MEDIASTINUM AND HILAR STRUCTURES: No masses. Contour normal. HEART AND VASCULAR STRUCTURES: The heart is upper normal limit in size. No overt vascular congestion . BONES: Degenerative changes in the spine. HARDWARE: None in the chest. IMPRESSION: No acute radiographic finding in the chest. TECHNICAL DOCUMENTATION: JOB ID: [id number]
[2017-07-22] MEDS ORDERED: CEFTRIAXONE 1 GM/D5W RTU 1 GM/50 ML RTUPB IV ONE (01:51)
[2017-07-22] MEDS ORDERED: ALBUTEROL SULFATE 0.083% NEB 2.5 MG/3 ML AMPUL NEB ONE (01:57)
[2017-07-22] MEDS ORDERED: PREDNISONE 20 MG TABLET PO SCH (02:00)
[2017-07-22] MEDS ORDERED: HYDRALAZINE HCL INJ/PF 20 MG/1 ML SDV IV PRN (02:00)
[2017-07-22] MEDS ORDERED: ACETAMINOPHEN 325 MG TABLET PO PRN (02:00)
[2017-07-22] MEDS ORDERED: GUAIFENESIN SYRP 200 MG/10 ML UDC PO PRN (02:01)
[2017-07-22] MEDS ORDERED: TRAMADOL HCL 50 MG TABLET PO PRN (02:04)
[2017-07-22 02:33] LABS: CREATINE KINASE MB 2.11 ng/mL (<4.55)
[2017-07-22 02:38] LABS: TROPONIN I 0.046 ng/mL
[2017-07-22] MEDS ORDERED: LEVOFLOXACIN 750 MG/D5W RTU 150 ML IV SCH (03:00)
[2017-07-22] MEDS ORDERED: LEVOFLOXACIN 750 MG/D5W RTU 750 MG/150 ML RTUPB IV ONE (03:00)
[2017-07-22] MEDS: POTASSI CL 20 MEQ/50 ML RIDER 20 MEQ/50 ML RTUPB IV SCH ×2 (04:32→06:46)
[2017-07-22] MEDS: HEPARIN SOD (PORCINE) 5,000 UNIT/ML 1 ML SYRINGE SUBCUT SCH ×3 (05:42→21:43)
[2017-07-22] MEDS: DILTIAZEM HCL 60 MG TABLET PO SCH ×3 (05:42→21:43)
--- NOTE | 2017-07-22 06:25 | PDOC H&P ---
History of Present Illness Admission Date/PCP: 07/22/17 02:01 Patient complains of: Shortness of breath History of Present Illness: BOOM TODD is a 61 year old female with a past medical history of hypertension, diastolic heart failure, home oxygen dependent COPD moderate mitral regurgitation and stage III chronic kidney disease. She was in her usual state of health until approximately 48 hours prior to presentation having shortness of breath associated with wheeze prompting her to seek evaluation emergency room where she was treated with albuterol and steroids and discharged home to follow-up with primary care however she has had worsening prompting her to return. She is found tachycardic, tachypneic with bilateral wheezing and rhonchi. She started on empiric antibiotics refer to the hospitalist for admission. She denies recent discontinuation of medication, trigger, chest pain nausea vomiting. Past Medical History Cardiac Medical History: Reports: Congestive Heart Failure, Coronary Artery Disease, Hyperlipidema, Hypertension Pulmonary Medical History: Reports: Asthma, Bronchitis, Chronic Obstructive Pulmonary Disease (COPD) - O2 dependent Denies: Tuberculosis Musculoskeltal Medical History: Reports: Gout Psychiatric Medical History: Reports: Depression Past Surgical History Past Surgical History: Reports: Section - x 4, Tubal Ligation Social History Information Source: Patient Lives with: Family Smoking Status: Never Smoker Frequency of Alcohol Use: None Hx Recreational Drug Use: No Drugs: None Hx Prescription Drug Abuse: No - Advance Directive Resuscitation Status: Full Code Family History Family History: CVA, Hypertension Parental Family History Reviewed: Yes Children Family History Reviewed: Yes Sibling(s) Family History Reviewed.: Yes Medication/Allergy Home Medications: Amlodipine Besylate [Norvasc 10 mg Tablet] 10 mg PO DAILY 04/16/17 Aspirin [Ecotrin 81 mg EC Tablet] 81 mg PO DAILY 04/16/17 Budesonide/Formoterol Fumarate [Symbicort HFA 160-4.5 mcg Inhaler 6 gm] 2 sprays IH Q12 04/16/17 Carvedilol [Coreg 3.125 mg Tablet] 3.125 mg PO BID 04/16/17 Cyanocobalamin (Vitamin B-12) [Vitamin B-12 100 mcg Tablet] 100 mcg PO DAILY Ferrous Sulfate 324 mg PO DAILY 04/16/17 Fluticasone Propionate [Flonase Nasal [place] 50 Mcg/[place] 16 gm] 2 spray NASL DAILY 04/16/17 Furosemide [Lasix] 40 mg PO BID 04/16/17 Gabapentin [Neurontin 400 mg Capsule] 400 mg PO Q12 04/16/17 Hydralazine HCl [Apresoline 50 mg Tablet] 100 mg PO Q12 04/16/17 Lisinopril [Prinivil 10 mg Tablet] 5 mg PO DAILY 04/16/17 Tiotropium [place] [Spiriva Handihaler 5 Cap/Kit (18 Mcg/Cap)] 1 puff IH DAILY 04/16/17 Tramadol HCl [Ultram 50 mg Tablet] 50 mg PO BIDP PRN 04/16/17 Albuterol Sulfate [Proair HFA] 1 - 2 puff IH Q4HP PRN #1 inhaler 04/18/17 Albuterol Sulfate [Albuterol Sulfate 2.5mg/3 mL] 1 vial IH Q4 PRN #60 vial 05/14 Ciprofloxacin HCl [Cipro 500 mg Tablet] 500 mg PO BID #14 tablet 07/20/17 Allergies/Adverse Reactions: No Known Allergies Allergy (Verified 05/14/17 12:18) Review of Systems Constitutional: ABSENT: chills, fever(s), headache(s), weight gain, weight loss Eyes: ABSENT: visual disturbances Ears: ABSENT: hearing changes Cardiovascular: ABSENT: chest pain, dyspnea on exertion, edema, orthropnea, palpitations Respiratory: PRESENT: cough, dyspnea. ABSENT: hemoptysis, sputum Gastrointestinal: ABSENT: abdominal pain, constipation, diarrhea, hematemesis, hematochezia, nausea, vomiting Genitourinary: ABSENT: dysuria, hematuria Musculoskeletal: ABSENT: joint swelling Integumentary: ABSENT: rash, wounds Neurological: ABSENT: abnormal gait, abnormal speech, confusion, dizziness, focal weakness, syncope Psychiatric: ABSENT: anxiety, depression, homidical ideation, suicidal ideation Endocrine: ABSENT: cold intolerance, heat intolerance, polydipsia, polyuria Hematologic/Lymphatic: ABSENT: easy bleeding, easy bruising Physical Exam Vital Signs: Temp Pulse Resp BP Pulse Ox 98.0 F 102 H 18 165/88 H 100 07/22/17 04:04 07/22/17 04:04 07/22/17 04:04 07/22/17 04:04 07/22/17 04:04 Intake & Output 07/20/17 07/21/17 07/22/17 11:59 11:59 11:59 Intake Total 175 Balance 175 Weight 108.2 kg General appearance: PRESENT: cooperative, mild distress Head exam: PRESENT: atraumatic, normocephalic Eye exam: PRESENT: conjunctiva pink, EOMI, PERRLA. ABSENT: scleral icterus Ear exam: PRESENT: normal external ear exam Mouth exam: PRESENT: moist, tongue midline Neck exam: ABSENT: carotid bruit, JVD, lymphadenopathy, thyromegaly Respiratory exam: PRESENT: accessory muscle use, crackles, prolonged expiratory phas, retraction, rhonchi, symmetrical, tachypnea, wheezes. ABSENT: chest wall tenderness, stridor Cardiovascular exam: PRESENT: RRR, +S1, +S2, systolic murmur, tachycardia Pulses: PRESENT: normal dorsalis pedis pul Vascular exam: PRESENT: normal capillary refill GI/Abdominal exam: PRESENT: normal bowel sounds, soft. ABSENT: distended, guarding, mass, organolmegaly, rebound, tenderness Rectal exam: PRESENT: deferred Extremities exam: PRESENT: full ROM. ABSENT: calf tenderness, clubbing, pedal edema Neurological exam: PRESENT: alert, awake, oriented to person, oriented to place , oriented to time, oriented to situation, CN II-XII grossly intact. ABSENT: motor sensory deficit Psychiatric exam: PRESENT: appropriate affect, normal mood. ABSENT: homicidal ideation, suicidal ideation Skin exam: PRESENT: dry, intact, warm. ABSENT: cyanosis, rash Results Impressions: Chest X-Ray 07/21/17 23:50 IMPRESSION: No acute radiographic finding in the chest. Assessment & Plan - Diagnosis (1) PNA (pneumonia) Is this a current diagnosis for this admission?: Yes Plan: Acute on chronic respiratory failure, bilateral rhonchi chest x-ray suggests right lower lobe infiltrate. Empiric antibiotics follow-up cultures and CBC (2) COPD with exacerbation Is this a current diagnosis for this admission?: Yes Plan: Flutter valve, albuterol and Atrovent, stress dose steroids and BiPAP as needed (3) Acute on chronic diastolic CHF (congestive heart failure) Is this a current diagnosis for this admission?: Yes Plan: Order BMP optimize blood pressure avoid significant diuresis given aortic valve regurgitation., known pulmonary hypertension. notable murmur secondary to aortic valve regurgitation. - Time Time Spent: 50 to 70 Minutes - Inpatient Certification Medical Necessity: Need Close Monitoring Due to Risk of Patient Decompensation
[2017-07-22 07:08] LABS: CREATINE KINASE MB 1.96 ng/mL (<4.55); TROPONIN I 0.105 ng/mL
[2017-07-22] MEDS ORDERED: NORMAL SALINE 1000 ML 1,000 ML IV PRN (07:49)
[2017-07-22] MEDS ORDERED: PHARMACY COMMUNICATION ORDER MC NR (08:00)
[2017-07-22 08:10] LABS: ANION GAP 16 (5-19); BLOOD UREA NITROGEN 38 mg/dL (7-20); CALCIUM 9.7 mg/dL (8.4-10.2); CARBON DIOXIDE 23 mmol/L (22-30); CHLORIDE 105 mmol/L (98-107); CREATININE RESULT 1.66 mg/dL (0.52-1.25); GLUCOSE 161 mg/dL (75-110); POTASSIUM 3.6 mmol/L (3.6-5.0); SODIUM 143.6 mmol/L (137-145)
[2017-07-22] MEDS ORDERED: POTASSIUM CHLORIDE 10 MEQ TABLET.SA PO ONE ×2 (08:30→15:15)
[2017-07-22] MEDS: IPRATROPIUM/ALBUTEROL 0.5-2.5 MG/3 ML AMPUL NEB SCH ×3 (08:59→20:26)
[2017-07-22] MEDS: ASPIRIN 81 MG TABLET, ENT COATED PO SCH (09:06)
[2017-07-22] MEDS: HYDRALAZINE HCL 50 MG TABLET PO SCH ×2 (09:06→21:43)
[2017-07-22] MEDS: GUAIFENESIN 600 MG TABLET.SA PO SCH ×2 (09:07→21:44)
[2017-07-22] MEDS: LISINOPRIL 10 MG TABLET PO SCH (09:08)
[2017-07-22] MEDS: GABAPENTIN 400 MG CAPSULE PO SCH ×2 (09:08→21:43)
[2017-07-22] MEDS: AMLODIPINE BESYLATE 10 MG TABLET PO SCH (09:08)
[2017-07-22] MEDS: FLUTICASONE NASAL SPRAY 50 MCG/SPRY 120 SPRAY/16 GM NASL SCH ×2 (09:10→21:44)
[2017-07-22] MEDS ORDERED: CARVEDILOL 3.125 MG TABLET PO SCH (10:00)
[2017-07-22] MEDS ORDERED: FUROSEMIDE 40 MG TABLET PO SCH (10:00)
[2017-07-22] MEDS: METHYLPREDNISOLONE INJ 125 MG/2 ML SDV IV SCH ×2 (13:19→21:43)
[2017-07-22 14:00] LABS: CREATINE KINASE MB 1.49 ng/mL (<4.55); TROPONIN I 0.085 ng/mL
--- NOTE | 2017-07-22 14:02 | EKG REPORT ---
SEVERITY:- ABNORMAL ECG - SINUS RHYTHM PROBABLE LEFT ATRIAL ABNORMALITY IVCD, CONSIDER ATYPICAL LBBB : Confirmed by: Lauren Wick 22-Jul-2017 14:01:29
[2017-07-22 14:33] LABS: APPEARANCE,URINE SLIGHTLY-CLOUDY; BILIRUBIN,URINE NEGATIVE (NEGATIVE); GLUCOSE, URINE NEGATIVE (NEGATIVE); KETONES,URINE NEGATIVE (NEGATIVE); LEUKOCYTE ESTERASE,URINE LARGE (NEGATIVE); NITRITE,URINE NEGATIVE (NEGATIVE); PROTEIN,URINE 100 mg/dL (NEGATIVE); UROBILINOGEN,URINE NEGATIVE mg/dL (<2.0)
[2017-07-22] MEDS ORDERED: ALBUTEROL SULFATE HFA (90 MCG/PUFF) 200 PUFF/8.5 GM MDI IH PRN ×2 (14:46→20:30)
[2017-07-22] MEDS ORDERED: MAGNESIUM SULFATE/D5W 1 GM/100 ML RTUPB IV ONE (15:15)
[2017-07-22] MEDS: FERROUS SULFATE 325 MG TABLET PO SCH (18:04)
[2017-07-22] MEDS: BUDESONIDE/FORMOTEROL 160-4.5 MCG 60 PUFF/6 GM MDI IH SCH (21:43)
[2017-07-22] MEDS: CARVEDILOL 3.125 MG TABLET PO SCH (21:43)
[2017-07-23] MEDS: IPRATROPIUM/ALBUTEROL 0.5-2.5 MG/3 ML AMPUL NEB SCH ×4 (02:25→20:49)
[2017-07-23 05:05] LABS: ABSOLUTE LYMPHOCYTES (AUTO) 1.4 10^3/uL (0.5-4.7); ABSOLUTE MONOCYTES (AUTO) 0.1 10^3/uL (0.1-1.4); ABSOLUTE NEUT (AUTO) 16.8 10^3/uL (1.7-8.2); BASOPHILS % (AUTO) 0.2 % (0-2); HEMATOCRIT 26.5 % (36.0-47.0); HEMOGLOBIN 8.8 g/dL (12.0-15.5); HGB HCT DIFFERENCE -0.1; LYMPHOCYTES % (AUTO) 7.8 % (13-45); MEAN CORPUSCULAR HEMOGLOBIN 27.7 pg (27.0-33.4); MEAN CORPUSCULAR HGB CONC 33.2 g/dL (32.0-36.0); MEAN CORPUSCULAR VOLUME 83 fl (80-97); MONOCYTES % (AUTO) 0.5 % (3-13); RED BLOOD COUNT 3.18 10^6/uL (3.72-5.28); SEGMENTED NEUTROPHILS % (AUTO) 91.5 % (42-78); WHITE BLOOD COUNT 18.4 10^3/uL (4.0-10.5)
[2017-07-23 05:26] LABS: ANION GAP 15 (5-19); BLOOD UREA NITROGEN 53 mg/dL (7-20); CALCIUM 9.7 mg/dL (8.4-10.2); CARBON DIOXIDE 22 mmol/L (22-30); CHLORIDE 103 mmol/L (98-107); CREATININE RESULT 1.76 mg/dL (0.52-1.25); GLUCOSE 136 mg/dL (75-110); POTASSIUM 4.4 mmol/L (3.6-5.0); SODIUM 139.9 mmol/L (137-145)
[2017-07-23] MEDS: CEFTRIAXONE 1 GM/D5W RTU 1 GM/50 ML RTUPB IV SCH (05:52)
[2017-07-23] MEDS: HEPARIN SOD (PORCINE) 5,000 UNIT/ML 1 ML SYRINGE SUBCUT SCH ×3 (05:52→21:40)
[2017-07-23] MEDS: METHYLPREDNISOLONE INJ 125 MG/2 ML SDV IV SCH ×3 (05:52→21:39)
[2017-07-23] MEDS: DILTIAZEM HCL 60 MG TABLET PO SCH ×3 (05:52→21:38)
[2017-07-23] MEDS: LEVOFLOXACIN 500 MG TABLET PO SCH (08:49)
[2017-07-23] MEDS: FERROUS SULFATE 325 MG TABLET PO SCH ×2 (09:58→17:17)
[2017-07-23] MEDS: LISINOPRIL 10 MG TABLET PO SCH (09:58)
[2017-07-23] MEDS ORDERED: (PENDING PHARMACY ID) (Cyanocobalamin (Vitamin B-12) [Vitamin B-12 100 Mcg Tablet] 100 MCG PO SCH (10:00)
[2017-07-23] MEDS: CARVEDILOL 3.125 MG TABLET PO SCH ×2 (10:02→21:38)
[2017-07-23] MEDS: AMLODIPINE BESYLATE 10 MG TABLET PO SCH (10:03)
[2017-07-23] MEDS: ASPIRIN 81 MG TABLET, ENT COATED PO SCH (10:03)
[2017-07-23] MEDS: GABAPENTIN 400 MG CAPSULE PO SCH ×2 (10:03→21:38)
[2017-07-23] MEDS: HYDRALAZINE HCL 50 MG TABLET PO SCH ×2 (10:04→21:39)
[2017-07-23] MEDS: FLUTICASONE NASAL SPRAY 50 MCG/SPRY 120 SPRAY/16 GM NASL SCH ×2 (10:05→21:40)
[2017-07-23] MEDS: BUDESONIDE/FORMOTEROL 160-4.5 MCG 60 PUFF/6 GM MDI IH SCH ×2 (10:05→21:38)
[2017-07-23] MEDS: DOCUSATE SODIUM 100 MG CAPSULE PO SCH ×2 (10:12→17:16)
[2017-07-23] MEDS: GUAIFENESIN 600 MG TABLET.SA PO SCH ×2 (10:12→21:39)
[2017-07-23] MEDS: POLYETHYLENE GLYCOL 3350 POWDER 17 GM/1 PACKET PO SCH (10:13)
--- NOTE | 2017-07-23 14:51 | PDOC PROGRESS REPORT ---
Subjective Progress Note for:: 07/23/17 Subjective:: Patient reports her shortness of breath is improving. She reports that although she feels somewhat improved, she is far from her baseline. She does complain of constipation. Patient denies chest pain, abdominal pain, nausea, vomiting, fevers, chills, diarrhea, headache, new onset weakness. Physical Exam Vital Signs: Temp Pulse Resp BP Pulse Ox 98.3 F 72 16 156/74 H 96 07/23/17 11:47 07/23/17 14:32 07/23/17 14:32 07/23/17 11:47 07/23/17 14:32 Intake & Output 07/22/17 07/23/17 07/24/17 06:59 06:59 06:59 Intake Total 375 3736 Output Total 1350 Balance 375 2386 Weight 108.2 kg 110 kg Exam: General: Awake alert and oriented x3, mild respiratory distress HEENT: AT/NC, PERRL, EOMI, oropharynx is moist, pink, no scleral icterus, no conjunctival injection Neck: No JVD, trachea midline Chest: mild tachypnea, use of accessory muscles, prolonged expiratory phase, bilateral end expiratory wheezing CV: Regular rate and rhythm, normal S1 and S2, no rub or gallop; +3/6 sm apex Abdomen: Obese, soft, nontender to palpation, nondistended, active bowel sounds ; no rebound, rigidity, or guarding Extremities: No cyanosis, clubbing; trace edema Neuro: Cranial nerves II through XII are grossly intact without focal deficits; awake alert and oriented x3 Psych: Normal mood and affect Results Laboratory Results: 07/23/17 04:16 07/23/17 04:16 07/23/17 07/23/17 04:16 04:16 WBC 18.4 H RBC 3.18 L Hgb 8.8 L Hct 26.5 L MCV 83 MCH 27.7 MCHC 33.2 RDW 15.0 H Plt Count 354 Seg Neutrophils % 91.5 H Lymphocytes % 7.8 L Monocytes % 0.5 L Eosinophils % 0.0 Basophils % 0.2 Absolute Neutrophils 16.8 H Absolute Lymphocytes 1.4 Absolute Monocytes 0.1 Absolute Eosinophils 0.0 Absolute Basophils 0.0 Sodium 139.9 Potassium 4.4 Chloride 103 Carbon Dioxide 22 Anion Gap 15 BUN 53 H Creatinine 1.76 H Est GFR ( Amer) 36 L Est GFR (Non-Af Amer) 29 L Glucose 136 H Calcium 9.7 07/22/17 07/22/17 07/22/17 06:29 06:29 13:00 Creatine Kinase 97 78 CK-MB (CK-2) 1.96 Troponin I 0.105 07/22/17 07/22/17 13:00 18:30 Creatine Kinase CK-MB (CK-2) 1.49 Troponin I 0.085 0.047 Impressions: Chest X-Ray 07/21/17 23:50 IMPRESSION: No acute radiographic finding in the chest. Assessment & Plan - Diagnosis (1) COPD with exacerbation Is this a current diagnosis for this admission?: Yes Plan: Attempt to decrease patient's Solu-Medrol today. She is still having quite a bit of bronchospasm but her overall air excursion is improved. Continue scheduled nebulized therapy. Pending sputum culture. (2) Acute hypoxemic respiratory failure Is this a current diagnosis for this admission?: Yes Plan: Continue oxygen to maintain saturation greater than 93% (3) Constipation Qualifiers: Constipation type: other constipation type Qualified Code(s): K59.09 - Other constipation Is this a current diagnosis for this admission?: Yes Plan: MiraLAX, senna and Colace (4) Anemia Qualifiers: Anemia type: B12 deficiency Vitamin B12 deficiency anemia type: unspecified B12 deficiency Qualified Code(s): D51.9 - Vitamin B12 deficiency anemia, unspecified Is this a current diagnosis for this admission?: Yes Plan: Patient has both B12 and iron deficiency. Continue both B12 and iron supplementation (5) Hypertension Qualifiers: Hypertension type: essential hypertension Qualified Code(s): I10 - Essential (primary) hypertension Is this a current diagnosis for this admission?: Yes Plan: Fair control. Generic Name Dose Route Start Last Admin Trade Name Freq PRN Reason Stop Dose Admin Amlodipine Besylate 10 mg 07/22/17 10:00 07/23/17 10:03 Norvasc 10 Mg Tablet PO 08/21/17 09:59 10 mg DAILY AKI Carvedilol 3.125 mg 07/22/17 22:00 07/23/17 10:02 Coreg 3.125 Mg Tablet PO 08/21/17 21:59 3.125 mg Q12 AKI Diltiazem HCl 60 mg 07/22/17 02:15 09/03/17 14:11 Cardizem 60 Mg Tablet PO 08/21/17 02:14 60 mg Q8 AKI Hydralazine HCl 10 mg 07/22/17 02:00 Apresoline Inj/Pf 20 Mg/1 Ml Sdv IV 08/21/17 01:59 Q6HP PRN Sbp>160 Hydralazine HCl 100 mg 07/22/17 10:00 07/23/17 10:04 Apresoline 50 Mg Tablet PO 08/21/17 09:59 100 mg Q12 AKI Lisinopril 5 mg 07/22/17 10:00 07/23/17 09:58 Prinivil 10 Mg Tablet PO 08/21/17 09:59 5 mg DAILY AKI (6) Hypokalemia Is this a current diagnosis for this admission?: Yes Plan: Replete and monitor (7) Obstructive sleep apnea Is this a current diagnosis for this admission?: Yes Plan: May use home CPAP (8) Severe obesity (BMI 35.0-39.9) with comorbidity Is this a current diagnosis for this admission?: Yes Plan: Dietary consult - Time Time Spent with patient: 25-34 minutes Medications reviewed and adjusted accordingly: Yes Anticipated discharge: Home Within: within 72 hours - Inpatient Certification Based on my medical assessment, after consideration of the patient's comorbidities, presenting symptoms, or acuity I expect that the services needed warrant INPATIENT care.: Yes I certify that my determination is in accordance with my understanding of Medicare's requirements for reasonable and necessary INPATIENT services [42 CFR 412.3e].: Yes Medical Necessity: Need for Nebulizer Therapy and Monitoring of Response, Need for IV Antibiotics, Risk of Complication if Not Cared For in Hospital Post Hospital Care: D/C Block Setter [place] Documentation
[2017-07-24] MEDS: IPRATROPIUM/ALBUTEROL 0.5-2.5 MG/3 ML AMPUL NEB SCH ×4 (01:38→20:43)
[2017-07-24] MEDS: CEFTRIAXONE 1 GM/D5W RTU 1 GM/50 ML RTUPB IV SCH (05:26)
[2017-07-24] MEDS: HEPARIN SOD (PORCINE) 5,000 UNIT/ML 1 ML SYRINGE SUBCUT SCH ×3 (05:27→22:44)
[2017-07-24] MEDS: DILTIAZEM HCL 60 MG TABLET PO SCH ×3 (05:28→22:43)
[2017-07-24] MEDS: METHYLPREDNISOLONE INJ 125 MG/2 ML SDV IV SCH (05:28)
[2017-07-24] MEDS: LEVOFLOXACIN 500 MG TABLET PO SCH (08:20)
[2017-07-24 08:42] LABS: HEMATOCRIT 28.1 % (36.0-47.0); HEMOGLOBIN 9.2 g/dL (12.0-15.5); HGB HCT DIFFERENCE -0.5; MEAN CORPUSCULAR HEMOGLOBIN 27.7 pg (27.0-33.4); MEAN CORPUSCULAR HGB CONC 32.8 g/dL (32.0-36.0); MEAN CORPUSCULAR VOLUME 84 fl (80-97); RED BLOOD COUNT 3.34 10^6/uL (3.72-5.28); RED CELL DISTRIBUTION WIDTH 14.8 % (11.5-14.0)
[2017-07-24 09:01] LABS: ANION GAP 13 (5-19); BLOOD UREA NITROGEN 61 mg/dL (7-20); CALCIUM 9.4 mg/dL (8.4-10.2); CARBON DIOXIDE 22 mmol/L (22-30); CHLORIDE 103 mmol/L (98-107); CREATININE RESULT 1.75 mg/dL (0.52-1.25); GLUCOSE 133 mg/dL (75-110); POTASSIUM 3.9 mmol/L (3.6-5.0); SODIUM 138.3 mmol/L (137-145)
[2017-07-24 09:24] LABS: ANISOCYTOSIS SLIGHT; BASOPHILS % (MANUAL) 0 % (0-2); EOSINOPHILS % (MANUAL) 0 % (0-6); LYMPHOCYTES % (MANUAL) 6 % (13-45); ROULEAUX 1+; TOTAL CELLS COUNTED 100
[2017-07-24] MEDS: GABAPENTIN 400 MG CAPSULE PO SCH ×2 (10:16→22:43)
[2017-07-24] MEDS: POLYETHYLENE GLYCOL 3350 POWDER 17 GM/1 PACKET PO SCH (10:16)
[2017-07-24] MEDS: AMLODIPINE BESYLATE 10 MG TABLET PO SCH (10:16)
[2017-07-24] MEDS: ASPIRIN 81 MG TABLET, ENT COATED PO SCH (10:17)
[2017-07-24] MEDS: GUAIFENESIN 600 MG TABLET.SA PO SCH ×2 (10:17→22:57)
[2017-07-24] MEDS: LISINOPRIL 10 MG TABLET PO SCH (10:18)
[2017-07-24] MEDS: HYDRALAZINE HCL 50 MG TABLET PO SCH ×2 (10:18→22:43)
[2017-07-24] MEDS: FERROUS SULFATE 325 MG TABLET PO SCH ×2 (10:19→17:40)
[2017-07-24] MEDS: DOCUSATE SODIUM 100 MG CAPSULE PO SCH ×2 (10:19→17:39)
[2017-07-24] MEDS: CARVEDILOL 3.125 MG TABLET PO SCH ×2 (10:19→22:45)
[2017-07-24] MEDS: FLUTICASONE NASAL SPRAY 50 MCG/SPRY 120 SPRAY/16 GM NASL SCH ×2 (10:20→22:44)
[2017-07-24] MEDS: BUDESONIDE/FORMOTEROL 160-4.5 MCG 60 PUFF/6 GM MDI IH SCH ×2 (10:21→22:57)
[2017-07-24] MEDS: METHYLPREDNISOLONE INJ 40 MG/1 ML SDV IV SCH ×2 (13:45→22:43)
[2017-07-24] MEDS ORDERED: METHYLPREDNISOLONE INJ 125 MG/2 ML SDV IV SCH (14:00)
--- NOTE | 2017-07-24 14:17 | PDOC PROGRESS REPORT ---
Subjective Progress Note for:: 07/24/17 Subjective:: Patient reports her shortness of breath is improving, but she is far from her baseline. She reports constipation improved. Patient denies chest pain, abdominal pain, nausea, vomiting, fevers, chills, diarrhea, headache, new onset weakness. Physical Exam Vital Signs: Temp Pulse Resp BP Pulse Ox 97.9 F 65 12 129/80 H 99 07/24/17 11:37 07/24/17 13:50 07/24/17 13:50 07/24/17 11:37 07/24/17 13:50 Intake & Output 07/23/17 07/24/17 07/25/17 06:59 06:59 06:59 Intake Total 3736 4303 Output Total 1350 2400 Balance 2386 1903 Weight 110 kg 115.6 kg Exam: General: Awake alert and oriented x3, mild respiratory distress HEENT: AT/NC, PERRL, EOMI, oropharynx is moist, pink, no scleral icterus, no conjunctival injection Neck: No JVD, trachea midline Chest: prolonged expiratory phase, scattered light bilateral end expiratory wheezing CV: Regular rate and rhythm, normal S1 and S2, no rub or gallop; +3/6 sm apex Abdomen: Obese, soft, nontender to palpation, nondistended, active bowel sounds ; no rebound, rigidity, or guarding Extremities: No cyanosis, clubbing; trace edema Neuro: Cranial nerves II through XII are grossly intact without focal deficits; awake alert and oriented x3 Psych: Normal mood and affect Results Laboratory Results: 07/24/17 08:03 07/24/17 08:03 07/23/17 07/24/17 07/24/17 19:26 08:03 08:03 WBC 20.0 H RBC 3.34 L Hgb 9.2 L Hct 28.1 L MCV 84 MCH 27.7 MCHC 32.8 RDW 14.8 H Plt Count 363 Seg Neutrophils % Not Reportable Lymphocytes % Not Reportable Monocytes % Not Reportable Eosinophils % Not Reportable Basophils % Not Reportable Absolute Neutrophils Not Reportable Absolute Lymphocytes Not Reportable Absolute Monocytes Not Reportable Absolute Eosinophils Not Reportable Absolute Basophils Not Reportable Sodium 138.3 Potassium 3.9 Chloride 103 Carbon Dioxide 22 Anion Gap 13 BUN 61 H Creatinine 1.75 H Est GFR ( Amer) 36 L Est GFR (Non-Af Amer) 30 L Glucose 133 H Calcium 9.4 Stool Occult Blood NEGATIVE 07/22/17 07/22/17 07/22/17 06:29 06:29 13:00 Creatine Kinase 97 78 CK-MB (CK-2) 1.96 Troponin I 0.105 07/22/17 07/22/17 13:00 18:30 Creatine Kinase CK-MB (CK-2) 1.49 Troponin I 0.085 0.047 Impressions: Chest X-Ray 07/21/17 23:50 IMPRESSION: No acute radiographic finding in the chest. Assessment & Plan - Diagnosis (1) COPD with exacerbation Is this a current diagnosis for this admission?: Yes Plan: Decrease Solu-Medrol Pending sputum culture Continue scheduled nebulized treatments Improving, but not yet back to baseline (2) Acute hypoxemic respiratory failure Is this a current diagnosis for this admission?: Yes Plan: Continue oxygen to maintain saturation greater than 93% (3) Constipation Qualifiers: Constipation type: other constipation type Qualified Code(s): K59.09 - Other constipation Is this a current diagnosis for this admission?: Yes Plan: Improved with MiraLAX, senna and Colace (4) Anemia Qualifiers: Anemia type: B12 deficiency Vitamin B12 deficiency anemia type: unspecified B12 deficiency Qualified Code(s): D51.9 - Vitamin B12 deficiency anemia, unspecified Is this a current diagnosis for this admission?: Yes Plan: Patient has both B12 and iron deficiency. Continue both B12 and iron supplementation (5) Hypertension Qualifiers: Hypertension type: essential hypertension Qualified Code(s): I10 - Essential (primary) hypertension Is this a current diagnosis for this admission?: Yes Plan: Fair control. 07/22/17 02:00 Hydralazine HCl [Apresoline Inj/Pf 20 mg/1 ml Sdv] 10 mg IV Q6HP PRN 07/22/17 02:15 Diltiazem HCl [Cardizem 60 mg Tablet] 60 mg PO Q8 07/22/17 10:00 Amlodipine Besylate [Norvasc 10 mg Tablet] 10 mg PO DAILY Hydralazine HCl [Apresoline 50 mg Tablet] 100 mg PO Q12 Lisinopril [Prinivil 10 mg Tablet] 5 mg PO DAILY 07/22/17 22:00 Carvedilol [Coreg 3.125 mg Tablet] 3.125 mg PO Q12 (6) Hypokalemia Is this a current diagnosis for this admission?: Yes (7) Obstructive sleep apnea Is this a current diagnosis for this admission?: Yes Plan: May use home CPAP (8) Severe obesity (BMI 35.0-39.9) with comorbidity Is this a current diagnosis for this admission?: Yes Plan: Dietary consult (9) Chronic diastolic heart failure Is this a current diagnosis for this admission?: Yes Plan: Last echo done on 02/22/2016 reveals normal EF, LVH, and mild diastolic dysfunction, mild aortic stenosis, mild mitral regurgitation, moderate pulmonary hypertension. Generic Name Dose Route Start Last Admin Trade Name Freq PRN Reason Stop Dose Admin Furosemide 40 mg 07/22/17 10:00 07/23/17 12:29 Lasix 40 Mg Tablet PO 08/21/17 09:59 40 mg DAILY [facility] Carvedilol 3.125 mg 07/22/17 22:00 07/24/17 10:19 Coreg 3.125 Mg Tablet PO 08/21/17 21:59 3.125 mg Q12 AKI Aspirin 81 mg 07/22/17 10:00 07/24/17 10:17 Ecotrin 81 Mg Ec Tablet PO 08/21/17 09:59 81 mg DAILY [facility] Lisinopril 5 mg 07/22/17 10:00 07/24/17 10:18 Prinivil 10 Mg Tablet PO 08/21/17 09:59 5 mg DAILY [facility] (10) Moderate to severe pulmonary hypertension Is this a current diagnosis for this admission?: Yes Plan: Moderate underlying pulmonary hypertension likely secondary to COPD - Time Time Spent with patient: 25-34 minutes Medications reviewed and adjusted accordingly: Yes Anticipated discharge: Home Within: within 24 hours, within 48 hours
[2017-07-25] MEDS: IPRATROPIUM/ALBUTEROL 0.5-2.5 MG/3 ML AMPUL NEB SCH ×4 (02:07→19:44)
[2017-07-25 05:42] LABS: HEMATOCRIT 26.9 % (36.0-47.0); HGB HCT DIFFERENCE 0.1; MEAN CORPUSCULAR HEMOGLOBIN 27.6 pg (27.0-33.4); MEAN CORPUSCULAR HGB CONC 33.4 g/dL (32.0-36.0); MEAN CORPUSCULAR VOLUME 83 fl (80-97); RED BLOOD COUNT 3.26 10^6/uL (3.72-5.28); RED CELL DISTRIBUTION WIDTH 15.1 % (11.5-14.0)
[2017-07-25] MEDS: CEFTRIAXONE 1 GM/D5W RTU 1 GM/50 ML RTUPB IV SCH (05:49)
[2017-07-25] MEDS: METHYLPREDNISOLONE INJ 40 MG/1 ML SDV IV SCH ×2 (05:49→21:39)
[2017-07-25] MEDS: DILTIAZEM HCL 60 MG TABLET PO SCH ×3 (05:49→21:39)
[2017-07-25] MEDS: HEPARIN SOD (PORCINE) 5,000 UNIT/ML 1 ML SYRINGE SUBCUT SCH ×3 (05:49→21:40)
[2017-07-25 05:52] LABS: WHITE BLOOD COUNT 20.2 10^3/uL (4.0-10.5)
[2017-07-25 05:54] LABS: ANION GAP 14 (5-19); BLOOD UREA NITROGEN 67 mg/dL (7-20); CALCIUM 9.3 mg/dL (8.4-10.2); CARBON DIOXIDE 21 mmol/L (22-30); CHLORIDE 102 mmol/L (98-107); CREATININE RESULT 1.81 mg/dL (0.52-1.25); GLUCOSE 142 mg/dL (75-110); POTASSIUM 3.9 mmol/L (3.6-5.0); SODIUM 136.7 mmol/L (137-145)
[2017-07-25 06:31] LABS: BASOPHILS % (MANUAL) 0 % (0-2); EOSINOPHILS % (MANUAL) 0 % (0-6); LYMPHOCYTES % (MANUAL) 10 % (13-45); TOTAL CELLS COUNTED 100
[2017-07-25 06:35] LABS: ANISOCYTOSIS SLIGHT; POIKILOCYTOSIS SLIGHT; ROULEAUX 1+; TARGET CELLS SLIGHT; TEAR DROP CELLS SLIGHT; TOXIC GRANULATION SLIGHT; TOXIC VACUOLATION PRESENT
[2017-07-25] MEDS: LEVOFLOXACIN 500 MG TABLET PO SCH (08:30)
[2017-07-25] MEDS ORDERED: ACETAMINOPHEN 325 MG TABLET PO PRN (10:00)
[2017-07-25] MEDS: POLYETHYLENE GLYCOL 3350 POWDER 17 GM/1 PACKET PO SCH (10:31)
[2017-07-25] MEDS: HYDRALAZINE HCL 50 MG TABLET PO SCH ×2 (10:31→21:39)
[2017-07-25] MEDS: FERROUS SULFATE 325 MG TABLET PO SCH ×2 (10:32→18:04)
[2017-07-25] MEDS: GABAPENTIN 400 MG CAPSULE PO SCH ×2 (10:32→21:39)
[2017-07-25] MEDS: CARVEDILOL 3.125 MG TABLET PO SCH ×2 (10:32→21:39)
[2017-07-25] MEDS: GUAIFENESIN 600 MG TABLET.SA PO SCH ×2 (10:32→21:39)
[2017-07-25] MEDS: LISINOPRIL 10 MG TABLET PO SCH (10:33)
[2017-07-25] MEDS: ASPIRIN 81 MG TABLET, ENT COATED PO SCH (10:33)
[2017-07-25] MEDS: DOCUSATE SODIUM 100 MG CAPSULE PO SCH ×2 (10:33→18:03)
[2017-07-25] MEDS: AMLODIPINE BESYLATE 10 MG TABLET PO SCH (10:33)
[2017-07-25] MEDS: FLUTICASONE NASAL SPRAY 50 MCG/SPRY 120 SPRAY/16 GM NASL SCH ×2 (10:37→21:39)
[2017-07-25] MEDS: BUDESONIDE/FORMOTEROL 160-4.5 MCG 60 PUFF/6 GM MDI IH SCH ×2 (10:37→21:39)
--- NOTE | 2017-07-25 14:26 | PDOC PROGRESS REPORT ---
Subjective Progress Note for:: 07/25/17 Subjective:: Pt states that she is feeling better. Pt states that her swelling has decreased. Physical Exam Vital Signs: Temp Pulse Resp BP Pulse Ox 97.9 F 66 19 149/66 H 100 07/25/17 11:36 07/25/17 11:36 07/25/17 11:36 07/25/17 11:36 07/25/17 11:36 Intake & Output 07/24/17 07/25/17 07/26/17 06:59 06:59 06:59 Intake Total 4303 2153 Output Total 2400 1800 Balance 1903 353 Weight 115.6 kg 114.9 kg General appearance: PRESENT: no acute distress, well-developed, well-nourished Head exam: PRESENT: atraumatic, normocephalic Eye exam: PRESENT: conjunctiva pink, EOMI. ABSENT: scleral icterus Ear exam: PRESENT: normal external ear exam Mouth exam: PRESENT: moist, tongue midline Neck exam: ABSENT: carotid bruit, JVD, lymphadenopathy, thyromegaly Respiratory exam: PRESENT: other - +scant wheezing, prolonged expiratory phase. ABSENT: rales, rhonchi, wheezes Cardiovascular exam: PRESENT: RRR. ABSENT: diastolic murmur, rubs, systolic murmur Pulses: PRESENT: normal dorsalis pedis pul GI/Abdominal exam: PRESENT: normal bowel sounds, soft. ABSENT: distended, guarding, mass, organolmegaly, rebound, tenderness Rectal exam: PRESENT: deferred Extremities exam: PRESENT: full ROM. ABSENT: calf tenderness, clubbing, pedal edema Neurological exam: PRESENT: alert, awake, oriented to person, oriented to place , oriented to time, oriented to situation, CN II-XII grossly intact. ABSENT: motor sensory deficit Psychiatric exam: PRESENT: appropriate affect, normal mood. ABSENT: homicidal ideation, suicidal ideation Skin exam: PRESENT: dry, warm Results Laboratory Results: 07/25/17 05:06 07/25/17 05:06 07/25/17 07/25/17 05:06 05:06 WBC 20.2 H RBC 3.26 L Hgb 9.0 L Hct 26.9 L MCV 83 MCH 27.6 MCHC 33.4 RDW 15.1 H Plt Count 360 Seg Neutrophils % Not Reportable Lymphocytes % Not Reportable Monocytes % Not Reportable Eosinophils % Not Reportable Basophils % Not Reportable Absolute Neutrophils Not Reportable Absolute Lymphocytes Not Reportable Absolute Monocytes Not Reportable Absolute Eosinophils Not Reportable Absolute Basophils Not Reportable Sodium 136.7 L Potassium 3.9 Chloride 102 Carbon Dioxide 21 L Anion Gap 14 BUN 67 H Creatinine 1.81 H Est GFR ( Amer) 34 L Est GFR (Non-Af Amer) 28 L Glucose 142 H Calcium 9.3 07/23/17 12:34 Clean Catch Midstream Urine Culture - Final NO GROWTH 2 DAYS 07/22/17 07/22/17 07/22/17 06:29 06:29 13:00 Creatine Kinase 97 78 CK-MB (CK-2) 1.96 Troponin I 0.105 07/22/17 07/22/17 13:00 18:30 Creatine Kinase CK-MB (CK-2) 1.49 Troponin I 0.085 0.047 Impressions: Chest X-Ray 07/21/17 23:50 IMPRESSION: No acute radiographic finding in the chest. Assessment & Plan - Diagnosis (1) Acute on chronic diastolic CHF (congestive heart failure) Is this a current diagnosis for this admission?: Yes Plan: Resolved. Pt's Lasix stopped today. (2) Acute hypoxemic respiratory failure Is this a current diagnosis for this admission?: Yes Plan: Resolving. Will continue to monitor. (3) Acute exacerbation of chronic bronchitis Is this a current diagnosis for this admission?: Yes Plan: Will continue Levaquin. (4) COPD with exacerbation Is this a current diagnosis for this admission?: Yes Plan: Breathing treatment as scheduled. Steroids Q6 hours. (5) Constipation Qualifiers: Constipation type: other constipation type Qualified Code(s): K59.09 - Other constipation Is this a current diagnosis for this admission?: Yes Plan: Resolving. Will continue Miralax, senna, and colace. (6) Anemia Qualifiers: Anemia type: B12 deficiency Vitamin B12 deficiency anemia type: unspecified B12 deficiency Qualified Code(s): D51.9 - Vitamin B12 deficiency anemia, unspecified Is this a current diagnosis for this admission?: Yes Plan: will continue supplements. (7) Hypertension Qualifiers: Hypertension type: essential hypertension Qualified Code(s): I10 - Essential (primary) hypertension Is this a current diagnosis for this admission?: Yes Plan: Will continue to monitor. Will hold lisinopril today. (8) PNA (pneumonia) Qualifiers: Pneumonia type: due to unspecified organism Is this a current diagnosis for this admission?: Yes Plan: Levaquin (9) Leukocytosis Qualifiers: Leukocytosis type: unspecified Qualified Code(s): D72.829 - Elevated white blood cell count, unspecified Is this a current diagnosis for this admission?: Yes Plan: Secondary to Steroids: Will continue to monitor.
[2017-07-26] MEDS: IPRATROPIUM/ALBUTEROL 0.5-2.5 MG/3 ML AMPUL NEB SCH ×4 (01:59→19:46)
[2017-07-26 05:01] LABS: ABSOLUTE LYMPHOCYTES (AUTO) 1.4 10^3/uL (0.5-4.7); ABSOLUTE MONOCYTES (AUTO) 0.3 10^3/uL (0.1-1.4); ABSOLUTE NEUT (AUTO) 16.4 10^3/uL (1.7-8.2); BASOPHILS % (AUTO) 0.2 % (0-2); HEMATOCRIT 28.1 % (36.0-47.0); HEMOGLOBIN 9.3 g/dL (12.0-15.5); HGB HCT DIFFERENCE -0.2; LYMPHOCYTES % (AUTO) 7.8 % (13-45); MEAN CORPUSCULAR HEMOGLOBIN 27.7 pg (27.0-33.4); MEAN CORPUSCULAR VOLUME 84 fl (80-97); MONOCYTES % (AUTO) 1.7 % (3-13); RED BLOOD COUNT 3.35 10^6/uL (3.72-5.28); RED CELL DISTRIBUTION WIDTH 14.6 % (11.5-14.0); SEGMENTED NEUTROPHILS % (AUTO) 90.3 % (42-78); WHITE BLOOD COUNT 18.2 10^3/uL (4.0-10.5)
[2017-07-26] MEDS: DILTIAZEM HCL 60 MG TABLET PO SCH ×3 (05:16→22:13)
[2017-07-26] MEDS: HEPARIN SOD (PORCINE) 5,000 UNIT/ML 1 ML SYRINGE SUBCUT SCH ×3 (05:16→22:15)
[2017-07-26 05:42] LABS: ANION GAP 10 (5-19); BLOOD UREA NITROGEN 70 mg/dL (7-20); CALCIUM 9.7 mg/dL (8.4-10.2); CARBON DIOXIDE 22 mmol/L (22-30); CHLORIDE 104 mmol/L (98-107); CREATININE RESULT 1.92 mg/dL (0.52-1.25); GLUCOSE 133 mg/dL (75-110); SODIUM 136.3 mmol/L (137-145)
[2017-07-26] MEDS ORDERED: LISINOPRIL 10 MG TABLET PO SCH (10:00)
[2017-07-26] MEDS: LEVOFLOXACIN 500 MG TABLET PO SCH (10:45)
[2017-07-26] MEDS: FERROUS SULFATE 325 MG TABLET PO SCH ×2 (10:46→18:33)
[2017-07-26] MEDS: GUAIFENESIN 600 MG TABLET.SA PO SCH ×2 (10:46→22:13)
[2017-07-26] MEDS: DOCUSATE SODIUM 100 MG CAPSULE PO SCH ×2 (10:46→18:33)
[2017-07-26] MEDS: GABAPENTIN 400 MG CAPSULE PO SCH ×2 (10:47→22:13)
[2017-07-26] MEDS: ASPIRIN 81 MG TABLET, ENT COATED PO SCH (10:47)
[2017-07-26] MEDS: HYDRALAZINE HCL 50 MG TABLET PO SCH ×2 (10:48→22:13)
[2017-07-26] MEDS: METHYLPREDNISOLONE INJ 40 MG/1 ML SDV IV SCH (10:52)
[2017-07-26] MEDS: AMLODIPINE BESYLATE 10 MG TABLET PO SCH (10:52)
[2017-07-26] MEDS: CARVEDILOL 3.125 MG TABLET PO SCH ×2 (10:53→22:13)
[2017-07-26] MEDS: POLYETHYLENE GLYCOL 3350 POWDER 17 GM/1 PACKET PO SCH (11:01)
[2017-07-26] MEDS: FLUTICASONE NASAL SPRAY 50 MCG/SPRY 120 SPRAY/16 GM NASL SCH ×2 (11:04→22:13)
[2017-07-26] MEDS: BUDESONIDE/FORMOTEROL 160-4.5 MCG 60 PUFF/6 GM MDI IH SCH ×2 (11:04→22:13)
--- NOTE | 2017-07-26 12:07 | PDOC PROGRESS REPORT ---
Subjective Progress Note for:: 07/26/17 Subjective:: Pt states that she is feeling better. Physical Exam Vital Signs: Temp Pulse Resp BP Pulse Ox 97.9 F 69 18 151/66 H 96 07/26/17 07:37 07/26/17 07:57 07/26/17 07:57 07/26/17 07:37 07/26/17 07:57 Intake & Output 07/25/17 07/26/17 07/27/17 06:59 06:59 06:59 Intake Total 2153 2262 Output Total 1800 2875 Balance 353 -613 Weight 114.9 kg 115.2 kg 115.2 kg General appearance: PRESENT: no acute distress, well-developed, well-nourished Head exam: PRESENT: atraumatic, normocephalic Eye exam: PRESENT: conjunctiva pink, EOMI. ABSENT: scleral icterus Mouth exam: PRESENT: moist, tongue midline Neck exam: ABSENT: carotid bruit, JVD, lymphadenopathy, thyromegaly Respiratory exam: PRESENT: clear to auscultation brandon, other - diminished breath sounds. ABSENT: rales, rhonchi, wheezes Cardiovascular exam: PRESENT: bradycardia Pulses: PRESENT: normal carotid pulses GI/Abdominal exam: PRESENT: normal bowel sounds, soft. ABSENT: distended, guarding, mass, organolmegaly, rebound, tenderness Rectal exam: PRESENT: deferred Extremities exam: PRESENT: full ROM. ABSENT: calf tenderness, clubbing, pedal edema Neurological exam: PRESENT: alert, awake, oriented to person, oriented to place , oriented to time, oriented to situation, CN II-XII grossly intact. ABSENT: motor sensory deficit Skin exam: PRESENT: dry, intact, warm. ABSENT: cyanosis, rash Results Laboratory Results: 07/26/17 04:38 07/26/17 04:38 07/26/17 07/26/17 04:38 04:38 WBC 18.2 H RBC 3.35 L Hgb 9.3 L Hct 28.1 L MCV 84 MCH 27.7 MCHC 33.0 RDW 14.6 H Plt Count 342 Seg Neutrophils % 90.3 H Lymphocytes % 7.8 L Monocytes % 1.7 L Eosinophils % 0.0 Basophils % 0.2 Absolute Neutrophils 16.4 H Absolute Lymphocytes 1.4 Absolute Monocytes 0.3 Absolute Eosinophils 0.0 Absolute Basophils 0.0 Sodium 136.3 L Potassium 4.0 Chloride 104 Carbon Dioxide 22 Anion Gap 10 BUN 70 H Creatinine 1.92 H Est GFR ( Amer) 32 L Est GFR (Non-Af Amer) 27 L Glucose 133 H Calcium 9.7 07/23/17 12:34 Clean Catch Midstream Urine Culture - Final NO GROWTH 2 DAYS 07/22/17 07/22/17 07/22/17 06:29 06:29 13:00 Creatine Kinase 97 78 CK-MB (CK-2) 1.96 Troponin I 0.105 07/22/17 07/22/17 13:00 18:30 Creatine Kinase CK-MB (CK-2) 1.49 Troponin I 0.085 0.047 Impressions: Chest X-Ray 07/21/17 23:50 IMPRESSION: No acute radiographic finding in the chest. Assessment & Plan - Diagnosis (1) Acute on chronic diastolic CHF (congestive heart failure) Is this a current diagnosis for this admission?: Yes Plan: Resolved. Lasix held. (2) Acute kidney injury superimposed on chronic kidney disease Is this a current diagnosis for this admission?: Yes Plan: Lasix discontinued. Will check BMP in am. Pt encouraged to drink more. (3) Acute hypoxemic respiratory failure Is this a current diagnosis for this admission?: Yes Plan: Resolving. Will continue to monitor. (4) Acute exacerbation of chronic bronchitis Is this a current diagnosis for this admission?: Yes Plan: Will continue Levaquin. Will discontinue steroids today. (5) COPD with exacerbation Is this a current diagnosis for this admission?: Yes Plan: Breathing treatment as scheduled. Will discontinue steroids. (6) Constipation Qualifiers: Constipation type: other constipation type Qualified Code(s): K59.09 - Other constipation Is this a current diagnosis for this admission?: Yes Plan: Resolving. Will continue Miralax, senna, and colace. (7) Anemia Qualifiers: Anemia type: B12 deficiency Vitamin B12 deficiency anemia type: unspecified B12 deficiency Qualified Code(s): D51.9 - Vitamin B12 deficiency anemia, unspecified Is this a current diagnosis for this admission?: Yes Plan: will continue supplements. (8) Hypertension Qualifiers: Hypertension type: essential hypertension Qualified Code(s): I10 - Essential (primary) hypertension Is this a current diagnosis for this admission?: Yes Plan: Will continue to monitor. Will held lisinopril. (9) PNA (pneumonia) Qualifiers: Pneumonia type: due to unspecified organism Is this a current diagnosis for this admission?: Yes Plan: Levaquin (10) Leukocytosis Qualifiers: Leukocytosis type: unspecified Qualified Code(s): D72.829 - Elevated white blood cell count, unspecified Is this a current diagnosis for this admission?: Yes Plan: Secondary to Steroids: Will continue to monitor. - Time Time Spent with patient: 15-24 minutes
[2017-07-27] MEDS: IPRATROPIUM/ALBUTEROL 0.5-2.5 MG/3 ML AMPUL NEB SCH ×4 (02:25→19:42)
[2017-07-27] MEDS: HEPARIN SOD (PORCINE) 5,000 UNIT/ML 1 ML SYRINGE SUBCUT SCH ×3 (05:45→22:03)
[2017-07-27] MEDS: DILTIAZEM HCL 60 MG TABLET PO SCH ×3 (05:45→22:03)
[2017-07-27 06:03] LABS: ABSOLUTE LYMPHOCYTES (AUTO) 1.8 10^3/uL (0.5-4.7); ABSOLUTE MONOCYTES (AUTO) 0.9 10^3/uL (0.1-1.4); ABSOLUTE NEUT (AUTO) 16.1 10^3/uL (1.7-8.2); HEMATOCRIT 27.9 % (36.0-47.0); HEMOGLOBIN 9.1 g/dL (12.0-15.5); HGB HCT DIFFERENCE -0.6; LYMPHOCYTES % (AUTO) 9.5 % (13-45); MEAN CORPUSCULAR HEMOGLOBIN 27.5 pg (27.0-33.4); MEAN CORPUSCULAR HGB CONC 32.7 g/dL (32.0-36.0); MEAN CORPUSCULAR VOLUME 84 fl (80-97); MONOCYTES % (AUTO) 4.8 % (3-13); RED BLOOD COUNT 3.32 10^6/uL (3.72-5.28); RED CELL DISTRIBUTION WIDTH 15.3 % (11.5-14.0); SEGMENTED NEUTROPHILS % (AUTO) 85.7 % (42-78); WHITE BLOOD COUNT 18.8 10^3/uL (4.0-10.5)
[2017-07-27 06:11] LABS: ANION GAP 10 (5-19); BLOOD UREA NITROGEN 72 mg/dL (7-20); CALCIUM 9.8 mg/dL (8.4-10.2); CARBON DIOXIDE 23 mmol/L (22-30); CHLORIDE 105 mmol/L (98-107); GLUCOSE 112 mg/dL (75-110); POTASSIUM 4.3 mmol/L (3.6-5.0); SODIUM 137.7 mmol/L (137-145)
[2017-07-27] MEDS: LEVOFLOXACIN 500 MG TABLET PO SCH (08:48)
[2017-07-27] MEDS: DOCUSATE SODIUM 100 MG CAPSULE PO SCH ×2 (09:59→18:08)
[2017-07-27] MEDS: POLYETHYLENE GLYCOL 3350 POWDER 17 GM/1 PACKET PO SCH (09:59)
[2017-07-27] MEDS: ASPIRIN 81 MG TABLET, ENT COATED PO SCH (10:00)
[2017-07-27] MEDS: GUAIFENESIN 600 MG TABLET.SA PO SCH ×2 (10:00→22:03)
[2017-07-27] MEDS: AMLODIPINE BESYLATE 10 MG TABLET PO SCH (10:01)
[2017-07-27] MEDS: FERROUS SULFATE 325 MG TABLET PO SCH ×2 (10:01→18:09)
[2017-07-27] MEDS: GABAPENTIN 400 MG CAPSULE PO SCH ×2 (10:01→22:04)
[2017-07-27] MEDS: HYDRALAZINE HCL 50 MG TABLET PO SCH ×2 (10:01→22:03)
[2017-07-27] MEDS: CARVEDILOL 3.125 MG TABLET PO SCH ×2 (10:02→22:03)
[2017-07-27] MEDS: FLUTICASONE NASAL SPRAY 50 MCG/SPRY 120 SPRAY/16 GM NASL SCH ×2 (10:03→22:04)
[2017-07-27] MEDS: BUDESONIDE/FORMOTEROL 160-4.5 MCG 60 PUFF/6 GM MDI IH SCH ×2 (10:03→22:04)
--- NOTE | 2017-07-27 11:23 | PDOC PROGRESS REPORT ---
Subjective Progress Note for:: 07/27/17 Subjective:: Pt states that she is feeling better. Physical Exam Vital Signs: Temp Pulse Resp BP Pulse Ox 97.6 F 79 18 132/63 H 97 07/27/17 08:00 07/27/17 08:02 07/27/17 08:02 07/27/17 08:00 07/27/17 08:02 Intake & Output 07/26/17 07/27/17 07/28/17 06:59 06:59 06:59 Intake Total 2262 2290 Output Total 2875 2350 Balance -613 -60 Weight 115.2 kg 118.6 kg General appearance: PRESENT: no acute distress, well-developed, well-nourished Head exam: PRESENT: atraumatic, normocephalic Eye exam: PRESENT: conjunctiva pink, EOMI. ABSENT: scleral icterus Ear exam: PRESENT: normal external ear exam Mouth exam: PRESENT: moist, tongue midline Neck exam: ABSENT: carotid bruit, JVD, lymphadenopathy, thyromegaly Respiratory exam: PRESENT: clear to auscultation brandon. ABSENT: rales, rhonchi, wheezes Cardiovascular exam: PRESENT: RRR. ABSENT: diastolic murmur, rubs, systolic murmur Pulses: PRESENT: normal dorsalis pedis pul Vascular exam: PRESENT: normal capillary refill GI/Abdominal exam: PRESENT: normal bowel sounds, soft. ABSENT: distended, guarding, mass, organolmegaly, rebound, tenderness Rectal exam: PRESENT: deferred Extremities exam: PRESENT: full ROM. ABSENT: calf tenderness, clubbing, pedal edema Neurological exam: PRESENT: alert, awake, oriented to person, oriented to place , oriented to time, oriented to situation, CN II-XII grossly intact. ABSENT: motor sensory deficit Psychiatric exam: PRESENT: appropriate affect, normal mood. ABSENT: homicidal ideation, suicidal ideation Skin exam: PRESENT: dry, intact, warm. ABSENT: cyanosis, rash Results Laboratory Results: 07/27/17 05:40 07/27/17 05:40 07/27/17 07/27/17 05:40 05:40 WBC 18.8 H RBC 3.32 L Hgb 9.1 L Hct 27.9 L MCV 84 MCH 27.5 MCHC 32.7 RDW 15.3 H Plt Count 329 Seg Neutrophils % 85.7 H Lymphocytes % 9.5 L Monocytes % 4.8 Eosinophils % 0.0 Basophils % 0.0 Absolute Neutrophils 16.1 H Absolute Lymphocytes 1.8 Absolute Monocytes 0.9 Absolute Eosinophils 0.0 Absolute Basophils 0.0 Sodium 137.7 Potassium 4.3 Chloride 105 Carbon Dioxide 23 Anion Gap 10 BUN 72 H Creatinine 1.80 H Est GFR ( Amer) 35 L Est GFR (Non-Af Amer) 29 L Glucose 112 H Calcium 9.8 07/22/17 08:51 Blood Blood Culture - Final NO GROWTH IN 5 DAYS 07/22/17 08:05 Blood Blood Culture - Final NO GROWTH IN 5 DAYS 07/22/17 07/22/17 07/22/17 06:29 06:29 13:00 Creatine Kinase 97 78 CK-MB (CK-2) 1.96 Troponin I 0.105 07/22/17 07/22/17 13:00 18:30 Creatine Kinase CK-MB (CK-2) 1.49 Troponin I 0.085 0.047 Impressions: Chest X-Ray 07/21/17 23:50 IMPRESSION: No acute radiographic finding in the chest. Assessment & Plan - Diagnosis (1) Acute on chronic diastolic CHF (congestive heart failure) Is this a current diagnosis for this admission?: Yes Plan: Resolved. Lasix held. Creatinine improving but BUN still elevated. (2) Acute kidney injury superimposed on chronic kidney disease Is this a current diagnosis for this admission?: Yes Plan: Lasix discontinued. Will check BMP in am. Pt encouraged to drink more. (3) Acute hypoxemic respiratory failure Is this a current diagnosis for this admission?: Yes Plan: Resolved. Will continue to monitor. (4) Acute exacerbation of chronic bronchitis Is this a current diagnosis for this admission?: Yes Plan: Will continue Levaquin. Will discontinue steroids today. (5) COPD with exacerbation Is this a current diagnosis for this admission?: Yes Plan: Breathing treatment as scheduled. Steroids discontinued. (6) Constipation Qualifiers: Constipation type: other constipation type Qualified Code(s): K59.09 - Other constipation Is this a current diagnosis for this admission?: Yes Plan: Resolving. Will continue Miralax, senna, and colace. (7) Anemia Qualifiers: Anemia type: B12 deficiency Vitamin B12 deficiency anemia type: unspecified B12 deficiency Qualified Code(s): D51.9 - Vitamin B12 deficiency anemia, unspecified Is this a current diagnosis for this admission?: Yes Plan: will continue supplements. (8) Hypertension Qualifiers: Hypertension type: essential hypertension Qualified Code(s): I10 - Essential (primary) hypertension Is this a current diagnosis for this admission?: Yes Plan: Will continue to monitor. Will held lisinopril. (9) PNA (pneumonia) Qualifiers: Pneumonia type: due to unspecified organism Is this a current diagnosis for this admission?: Yes Plan: Levaquin (10) Leukocytosis Qualifiers: Leukocytosis type: unspecified Qualified Code(s): D72.829 - Elevated white blood cell count, unspecified Is this a current diagnosis for this admission?: Yes Plan: Secondary to Steroids: Will continue to monitor. - Time Time Spent with patient: 15-24 minutes
[2017-07-27] MEDS ORDERED: ALBUTEROL SULFATE HFA (90 MCG/PUFF) 200 PUFF/8.5 GM MDI IH PRN (12:30)
[2017-07-28] MEDS: IPRATROPIUM/ALBUTEROL 0.5-2.5 MG/3 ML AMPUL NEB SCH ×2 (02:00→08:44)
[2017-07-28] MEDS: DILTIAZEM HCL 60 MG TABLET PO SCH (05:42)
[2017-07-28] MEDS: HEPARIN SOD (PORCINE) 5,000 UNIT/ML 1 ML SYRINGE SUBCUT SCH (05:42)
[2017-07-28 08:48] LABS: ANION GAP 11 (5-19); BLOOD UREA NITROGEN 73 mg/dL (7-20); CALCIUM 9.1 mg/dL (8.4-10.2); CARBON DIOXIDE 22 mmol/L (22-30); CHLORIDE 103 mmol/L (98-107); CREATININE RESULT 1.74 mg/dL (0.52-1.25); GLUCOSE 94 mg/dL (75-110); POTASSIUM 3.9 mmol/L (3.6-5.0); SODIUM 135.8 mmol/L (137-145)
[2017-07-28] MEDS: LEVOFLOXACIN 500 MG TABLET PO SCH (08:55)
[2017-07-28] MEDS: BUDESONIDE/FORMOTEROL 160-4.5 MCG 60 PUFF/6 GM MDI IH SCH (10:01)
[2017-07-28] MEDS: FLUTICASONE NASAL SPRAY 50 MCG/SPRY 120 SPRAY/16 GM NASL SCH (10:02)
[2017-07-28] MEDS: GUAIFENESIN 600 MG TABLET.SA PO SCH (10:02)
[2017-07-28] MEDS: FERROUS SULFATE 325 MG TABLET PO SCH (10:02)
[2017-07-28] MEDS: DOCUSATE SODIUM 100 MG CAPSULE PO SCH (10:03)
[2017-07-28] MEDS: AMLODIPINE BESYLATE 10 MG TABLET PO SCH (10:03)
[2017-07-28] MEDS: ASPIRIN 81 MG TABLET, ENT COATED PO SCH (10:03)
[2017-07-28] MEDS: CARVEDILOL 3.125 MG TABLET PO SCH (10:03)
[2017-07-28] MEDS: GABAPENTIN 400 MG CAPSULE PO SCH (10:03)
[2017-07-28] MEDS: HYDRALAZINE HCL 50 MG TABLET PO SCH (10:09)
[2017-07-28] MEDS: POLYETHYLENE GLYCOL 3350 POWDER 17 GM/1 PACKET PO SCH (10:10)
--- NOTE | 2017-07-28 11:00 | PDOC DISCHARGE SUMMARY ---
General - Admit/Disc Date/PCP Admission Date/Primary Care Provider: 07/22/17 02:01 Discharge Date: 07/28/17 - Discharge Diagnosis (1) Acute hypoxemic respiratory failure Is this a current diagnosis for this admission?: Yes Summary: Patient was admitted to the hospital for acute hypoxic restorative failure secondary to COPD exacerbation and acute exacerbation of chronic diastolic congestive heart failure. Patient was placed on breathing treatments and diuretics. Patient's respiratory function has improved and patient is currently at baseline. (2) Acute exacerbation of chronic bronchitis Is this a current diagnosis for this admission?: Yes Summary: Patient was placed on breathing treatments, steroids, and antibiotics. Patient has completed antibiotic treatment here at the hospital. Patient's breathing is at baseline. Patient requires nasal cannula at home at 2 to 3 L. (3) Acute on chronic diastolic CHF (congestive heart failure) Is this a current diagnosis for this admission?: Yes Summary: Patient was placed on IV Lasix. Patient became intravascularly depleted therefore Lasix has been discontinued for now. Patient was told to restart Lasix on 07/31/2017. (4) Acute kidney injury superimposed on chronic kidney disease Is this a current diagnosis for this admission?: Yes Summary: Patient's renal function has demonstrated improvement. Patient's BUN is elevated. Patient will need to follow-up with PCP as outpatient. Patient told to restart her Lasix on 07/31/2017 (5) COPD with exacerbation Is this a current diagnosis for this admission?: Yes Summary: Patient was placed on breathing treatments, antibiotics, and steroids. Patient' s Restoril function is at baseline patient is doing well. (6) Constipation Is this a current diagnosis for this admission?: Yes Summary: Resolved (7) Anemia Is this a current diagnosis for this admission?: Yes Summary: Patient will continue vitamin B12 and iron replacement therapy (8) Hypertension Is this a current diagnosis for this admission?: Yes Summary: Patient's blood pressure medications were adjusted here at the hospital. Patient's blood pressure is under better control. (9) PNA (pneumonia) Is this a current diagnosis for this admission?: Yes Summary: Patient was placed on Levaquin which she has completed treatment here at the hospital. (10) Leukocytosis Is this a current diagnosis for this admission?: Yes Summary: Secondary to steroids - Additional Information Resuscitation Status: Full Code Discharge Diet: Cardiac Discharge Activity: Activity As Tolerated Home Medications: Albuterol Sulfate [Proair HFA Inhalation Aerosol 8.5 gm MDI] 2 puff IH Q6HP PRN 07/22/17 Amlodipine Besylate [Norvasc 10 mg Tablet] 10 mg PO DAILY 07/22/17 Aspirin [Ecotrin 81 mg EC Tablet] 81 mg PO DAILY 07/22/17 Budesonide/Formoterol Fumarate [Symbicort HFA 160-4.5 mcg Inhaler 6 gm] 2 puff IH Q12 07/22/17 Carvedilol [Coreg 3.125 mg Tablet] 3.125 mg PO Q12 07/22/17 Cyanocobalamin (Vitamin B-12) [Vitamin B-12 100 mcg Tablet] 100 mcg PO DAILY 01/06 Ferrous Sulfate [Feosol 325 mg Tablet] 325 mg PO BID 07/22/17 Fluticasone Propionate [Flonase Nasal [place] 50 Mcg/[place] 16 gm] 2 sprays NAREB DAILY 07/22/17 Gabapentin [Neurontin 400 mg Capsule] 400 mg PO Q12 07/22/17 Hydralazine HCl [Apresoline 50 mg Tablet] 100 mg PO Q12 07/22/17 Lisinopril [Prinivil 5 mg Tablet] 5 mg PO DAILY 07/22/17 Tiotropium [place] [Spiriva Handihaler 5 Cap/Kit (18 Mcg/Cap)] 1 cap IH DAILY Tramadol HCl [Ultram 50 mg Tablet] 50 mg PO Q12HP PRN 07/22/17 Aspirin [Ecotrin 81 mg EC Tablet] 81 mg PO DAILY tabec 07/28/17 Diltiazem HCl [Diltiazem ER] 120 mg PO DAILY #30 capsule.er NS 07/28/17 Furosemide [Lasix 40 mg Tablet] 40 mg PO BID #0 07/28/17 History of Present Illness History of Present Illness: BOOM TODD is a 61 year old female who presented to the hospital with complaint of difficulty breathing. Patient was noted to be wheezing in the emergency room and therefore was placed on albuterol and steroids. Hospital Course Hospital Course: Patient was admitted to the hospital for acute hypoxic restorative failure secondary to COPD and acute exacerbation of chronic diastolic congestive heart failure. Patient was given breathing treatments, steroids and antibiotics. Patient was also placed on Lasix IV for diuresis. Patient's respiratory function continued to improve throughout hospitalization. Patient was back to baseline oxygen requirements of 2-3 L. Patient was noted to be constipated during hospitalization therefore patient was given medications to resolve this issue. She was noted to develop acute renal injury in setting of chronic kidney disease stage III therefore diuretics were held and are currently being held until 07/31/2017. Patient will need a follow-up with her PCP within 1 week. Patient had completed antibiotic regimen here at the hospital and was not requiring systemic steroids at this time. Physical Exam Vital Signs: Temp Pulse Resp BP Pulse Ox 97.9 F 69 18 117/59 L 97 07/28/17 07:58 07/28/17 08:45 07/28/17 08:45 07/28/17 07:58 07/28/17 08:45 Intake & Output 07/27/17 07/28/17 07/29/17 06:59 06:59 06:59 Intake Total 2290 2800 Output Total 2350 2800 Balance -60 0 Weight 118.6 kg 120.5 kg General appearance: PRESENT: no acute distress, well-developed, well-nourished Head exam: PRESENT: atraumatic, normocephalic Eye exam: PRESENT: conjunctiva pink, EOMI, PERRLA. ABSENT: scleral icterus Ear exam: PRESENT: normal external ear exam Mouth exam: PRESENT: moist, tongue midline Neck exam: ABSENT: carotid bruit, JVD, lymphadenopathy, thyromegaly Respiratory exam: PRESENT: clear to auscultation brandon, other - diminished at bases. ABSENT: rales, rhonchi, wheezes Pulses: PRESENT: normal dorsalis pedis pul Vascular exam: PRESENT: normal capillary refill GI/Abdominal exam: PRESENT: normal bowel sounds, soft. ABSENT: distended, guarding, mass, organolmegaly, rebound, tenderness Rectal exam: PRESENT: deferred Extremities exam: PRESENT: full ROM. ABSENT: calf tenderness, clubbing, pedal edema Neurological exam: PRESENT: alert, awake, oriented to person, oriented to place , oriented to time, oriented to situation, CN II-XII grossly intact. ABSENT: motor sensory deficit Psychiatric exam: PRESENT: appropriate affect, normal mood. ABSENT: homicidal ideation, suicidal ideation Skin exam: PRESENT: dry, intact, warm. ABSENT: cyanosis, rash Results Laboratory Results: 07/27/17 05:40 07/28/17 08:17 07/28/17 08:17 Sodium 135.8 L Potassium 3.9 Chloride 103 Carbon Dioxide 22 Anion Gap 11 BUN 73 H Creatinine 1.74 H Est GFR ( Amer) 36 L Est GFR (Non-Af Amer) 30 L Glucose 94 Calcium 9.1 07/22/17 08:51 Blood Blood Culture - Final NO GROWTH IN 5 DAYS 07/22/17 08:05 Blood Blood Culture - Final NO GROWTH IN 5 DAYS 07/22/17 07/22/17 07/22/17 06:29 06:29 13:00 Creatine Kinase 97 78 CK-MB (CK-2) 1.96 Troponin I 0.105 07/22/17 07/22/17 13:00 18:30 Creatine Kinase CK-MB (CK-2) 1.49 Troponin I 0.085 0.047 Impressions: Chest X-Ray 07/21/17 23:50 IMPRESSION: No acute radiographic finding in the chest.
[2017-07-28 11:44] VITALS: BP 113/58
== END 2017-07-28 13:50 | disposition home health service (06) | DRG 291 ==
LOC: ER 23:48 → EH 07-22 02:01 → UNDOADMIN 07-22 02:07 → EH 07-22 02:07 → 4N 07-22 03:59
PROVIDERS: ADMIT Internal Medicine; ATTEND Internal Medicine
DX: I13.0 Hypertensive heart and chronic kidney disease with heart failure and stage 1 through stage 4 chronic kidney disease, or unspecified chronic kidney disease (principal); I50.33 Acute on chronic diastolic (congestive) heart failure; J18.9 Pneumonia, unspecified organism; J96.01 Acute respiratory failure with hypoxia; J44.0 Chronic obstructive pulmonary disease with (acute) lower respiratory infection; Z68.41 Body mass index [BMI] 40.0-44.9, adult; N17.9 Acute kidney failure, unspecified; J44.1 Chronic obstructive pulmonary disease with (acute) exacerbation; N18.3 Chronic kidney disease, stage 3 (moderate); F32.9 Major depressive disorder, single episode, unspecified; I25.10 Atherosclerotic heart disease of native coronary artery without angina pectoris; M10.9 Gout, unspecified; I27.2 Other secondary pulmonary hypertension; K59.09 Other constipation; D51.9 Vitamin B12 deficiency anemia, unspecified; E87.6 Hypokalemia; I34.0 Nonrheumatic mitral (valve) insufficiency; D64.9 Anemia, unspecified; G47.33 Obstructive sleep apnea (adult) (pediatric); E66.01 Morbid (severe) obesity due to excess calories; D72.829 Elevated white blood cell count, unspecified; Z98.51 Tubal ligation status; Z82.3 Family history of stroke; Z82.49 Family history of ischemic heart disease and other diseases of the circulatory system; Z99.81 Dependence on supplemental oxygen
CPT/HCPCS: 36415; 71010; 80048; 80053; 81001; 82272; 82550; 82553; 82803; 83735; 83880; 84484; 85025; 87040; 87086; 93005; 93010; 94640; 94667; 94668; 94799; 96365; 96375; 99291; J0696; J1644; J1956; J2920; J2930; J3475; J3480; J3490; J7030; J7620

== ENCOUNTER 2017-08-02 19:55 | Emergency (ER) | payer MEDICARE, MEDICAID ==
[2017-08-02 21:59] LABS: ABSOLUTE EOSINOPHILS # (AUTO) 0.3 10^3/uL (0.0-0.6); ABSOLUTE LYMPHOCYTES (AUTO) 3.3 10^3/uL (0.5-4.7); ABSOLUTE MONOCYTES (AUTO) 1.1 10^3/uL (0.1-1.4); ABSOLUTE NEUT (AUTO) 8.6 10^3/uL (1.7-8.2); BASOPHILS % (AUTO) 0.2 % (0-2); EOSINOPHILS % (AUTO) 2.5 % (0-6); HEMATOCRIT 24.9 % (36.0-47.0); HEMOGLOBIN 8.3 g/dL (12.0-15.5); LYMPHOCYTES % (AUTO) 24.7 % (13-45); MEAN CORPUSCULAR HEMOGLOBIN 28.1 pg (27.0-33.4); MEAN CORPUSCULAR HGB CONC 33.4 g/dL (32.0-36.0); MEAN CORPUSCULAR VOLUME 84 fl (80-97); MONOCYTES % (AUTO) 8.1 % (3-13); RED BLOOD COUNT 2.95 10^6/uL (3.72-5.28); RED CELL DISTRIBUTION WIDTH 16.9 % (11.5-14.0); SEGMENTED NEUTROPHILS % (AUTO) 64.5 % (42-78); WHITE BLOOD COUNT 13.4 10^3/uL (4.0-10.5)
[2017-08-02 22:03] LABS: PROTHROMBIN TIME 12.7 SEC (11.4-15.4)
--- NOTE | 2017-08-02 22:03 | RADIOLOGY REPORT (SQ) ---
EXAM DESCRIPTION: CHEST PA/LAT COMPLETED DATE/TIME: 08/02/2017 9:55 pm REASON FOR STUDY: CHF COMPARISON: 04/15/2017 EXAM PARAMETERS: NUMBER OF VIEWS: two views TECHNIQUE: Digital Frontal and Lateral radiographic views of the chest acquired. RADIATION DOSE: NA LIMITATIONS: none FINDINGS: LUNGS AND PLEURA: Interstitial markings are prominent but unchanged. No consolidation or effusions. MEDIASTINUM AND HILAR STRUCTURES: No masses or contour abnormalities. HEART AND VASCULAR STRUCTURES: Heart size is stable. There is central vascular prominence. BONES: No acute findings. HARDWARE: None in the chest. OTHER: No other significant finding. IMPRESSION: No interval change from previous study. This may represent baseline or may represent re current congestion. TECHNICAL DOCUMENTATION: JOB ID: [id number] [employer]- All Rights Reserved
[2017-08-02 22:11] LABS: ALANINE AMINOTRANSFERASE 36 U/L (9-52); ALBUMIN 3.4 g/dL (3.5-5.0); ALKALINE PHOSPHATASE 141 U/L (38-126); ANION GAP 13 (5-19); ASPARTATE AMINO TRANSFERASE 15 U/L (14-36); BILIRUBIN,DIRECT 0.4 mg/dL (0.0-0.4); BILIRUBIN,TOTAL 0.4 mg/dL (0.2-1.3); BLOOD UREA NITROGEN 41 mg/dL (7-20); CALCIUM 9.4 mg/dL (8.4-10.2); CARBON DIOXIDE 25 mmol/L (22-30); CHLORIDE 106 mmol/L (98-107); CREATINE KINASE 29 U/L (30-135); CREATININE RESULT 1.63 mg/dL (0.52-1.25); GLUCOSE 88 mg/dL (75-110); POTASSIUM 3.9 mmol/L (3.6-5.0); SODIUM 144.1 mmol/L (137-145); TOTAL PROTEIN 6.2 g/dL (6.3-8.2)
--- NOTE | 2017-08-02 22:19 | ER Document Report ---
ED Extremity Problem, Lower - General Chief Complaint: Pedal Edema Stated Complaint: FEET SWELLING Time Seen by Provider: 08/02/17 22:11 Mode of Arrival: Wheelchair Information source: Patient Notes: Patient is a 61-year-old female with kidney disease and heart failure who presents to the ER today for lower extremity swelling. Patient states that she was taken off of her Lasix while she was in the hospital recently, just started it back yesterday, 20 mg twice a day, morning and night. Patient states that the swelling is not worse, just not better. She denies any shortness of breath , states that she "feels much better" than when she was here before for shortness of breath. She denies any chest pain. She is just here today for swollen feet. TRAVEL OUTSIDE OF THE [place] IN LAST 30 DAYS: No - Related Data Allergies/Adverse Reactions: No Known Allergies Allergy (Verified 05/14/17 12:18) Past Medical History - General Information source: Patient - Social History Smoking Status: Unknown if Ever Smoked Family History: CVA, Hypertension Patient has suicidal ideation: No Patient has homicidal ideation: No - Past Medical History Cardiac Medical History: Reports: Hx Congestive Heart Failure, Hx Coronary Artery Disease, Hx Hypercholesterolemia, Hx Hypertension Pulmonary Medical History: Reports: Hx Asthma, Hx Bronchitis, Hx COPD - O2 dependent Denies: Hx Tuberculosis Renal/ Medical History: Denies: Hx Peritoneal Dialysis Musculoskeltal Medical History: Reports Hx Gout Psychiatric Medical History: Reports: Hx Depression Past Surgical History: Reports: Hx Section - x 4, Hx Tubal Ligation - Immunizations Hx Diphtheria, Pertussis, Tetanus Vaccination: Yes Hx Pneumococcal Vaccination: 05/06/12 Review of Systems - Review of Systems Constitutional: No symptoms reported EENT: No symptoms reported Cardiovascular: No symptoms reported Respiratory: No symptoms reported Gastrointestinal: No symptoms reported Genitourinary: No symptoms reported Female Genitourinary: No symptoms reported Musculoskeletal: No symptoms reported Skin: See HPI Hematologic/Lymphatic: No symptoms reported Neurological/Psychological: No symptoms reported Physical Exam - Notes Notes: PHYSICAL EXAMINATION: GENERAL: Chronically ill-appearing, on nasal cannula oxygen, in no acute distress. HEAD: Atraumatic, normocephalic. EYES: Pupils equal round and reactive to light, extraocular movements intact, sclera anicteric, conjunctiva are normal. NECK: Normal range of motion, supple without lymphadenopathy LUNGS: CTAB and equal. No wheezes rales or rhonchi. HEART: Regular rate and rhythm without murmurs EXTREMITIES: Normal range of motion, 1+ pitting edema bilateral lower extremities. No cyanosis. NEUROLOGICAL: Cranial nerves grossly intact. Normal sensory/motor exams. PSYCH: Normal mood, normal affect. SKIN: Warm, Dry, normal turgor, no rashes or lesions noted Course - Re-evaluation Re-evalutation: 08/02/17 22:17 Patient is at her baseline with her shortness of breath, on her normal oxygen that she is on at home. She only came in for swelling of her feet which is chronic for her as well, she started back on Lasix yesterday. At this time I will have her double the Lasix at home. I am unsure why lab work was drawn on her today as far as the cardiac enzymes go as she was not having any chest pain here today. - Laboratory Result Diagrams: 08/02/17 21:35 08/02/17 21:35 Laboratory results interpreted by me: 08/02/17 08/02/17 21:35 21:35 WBC 13.4 H RBC 2.95 L Hgb 8.3 L Hct 24.9 L RDW 16.9 H Absolute Neutrophils 8.6 H BUN 41 H Creatinine 1.63 H Est GFR ( Amer) 39 L Est GFR (Non-Af Amer) 32 L Alkaline Phosphatase 141 H Creatine Kinase 29 L Total Protein 6.2 L Albumin 3.4 L Discharge - Discharge Clinical Impression: Lower extremity edema Condition: Stable Disposition: HOME, SELF-CARE Additional Instructions: Please take 40mg of lasix in the morning and 20mg of lasix before bedtime for a total of 60mg of lasix a day. Return immediately for any new or worsening symptoms. Follow up with primary care provider, call tomorrow to make followup appointment. he may change this dose of lasix so it's important to follow up with them about this!!! Prescriptions: Furosemide [Lasix 40 mg Tablet] 40 mg PO QAM #15 tablet
[2017-08-02 22:23] LABS: CREATINE KINASE MB 0.81 ng/mL (<4.55); TROPONIN I 0.015 ng/mL
[2017-08-02 22:36] VITALS: BP 156/74
[2017-08-02 22:37] LABS: APPEARANCE,URINE CLOUDY; BILIRUBIN,URINE NEGATIVE (NEGATIVE); GLUCOSE, URINE NEGATIVE (NEGATIVE); KETONES,URINE NEGATIVE (NEGATIVE); LEUKOCYTE ESTERASE,URINE LARGE (NEGATIVE); NITRITE,URINE NEGATIVE (NEGATIVE); PROTEIN,URINE 100 mg/dL (NEGATIVE); URINE SPECIFIC GRAVITY 1.008; UROBILINOGEN,URINE NEGATIVE mg/dL (<2.0)
== END 2017-08-02 22:30 | disposition home or self-care (01) ==
LOC: ER 19:55
DX: R60.0 Localized edema (principal); M79.89 Other specified soft tissue disorders; N18.9 Chronic kidney disease, unspecified; I50.9 Heart failure, unspecified
CPT/HCPCS: 36415; 71020; 80053; 81001; 82550; 82553; 84484; 85025; 85610; 99284

== ENCOUNTER 2017-10-07 00:03 | Inpatient (IN) | payer OTHER, MEDICARE, MEDICAID ==
[2017-10-07] MEDS ORDERED: IPRATROPIUM/ALBUTEROL 0.5-2.5 MG/3 ML AMPUL NEB ONE ×3 (00:35→04:00)
[2017-10-07] MEDS ORDERED: METHYLPREDNISOLONE INJ 125 MG/2 ML SDV IV ONE (00:35)
[2017-10-07] MEDS ORDERED: MAGNESIUM SULFATE/D5W 1 GM/100 ML RTUPB IV PRN ×2 (00:35→03:01)
--- NOTE | 2017-10-07 00:39 | ER Document Report ---
ED Respiratory Problem - General Stated Complaint: DIFFICULTY BREATHING Time Seen by Provider: 10/07/17 00:11 Notes: Patient is a 61-year-old female comes emergency department for chief complaint of wheezing and shortness of breath. She comes by EMS. She was initially hypoxic in the 80s per EMS. She states that she ran out of her albuterol nebulizer yesterday, she has 2 L nasal cannula oxygen dependency at all times for her COPD. She does not smoke. She denies fever, she reports some nonproductive cough. She denies chest pain. Other past medical history includes hypertension, CHF, CKD. TRAVEL OUTSIDE OF THE [place] IN LAST 30 DAYS: No - Related Data Allergies/Adverse Reactions: No Known Allergies Allergy (Verified 05/14/17 12:18) Past Medical History - General Information source: Patient - Social History Smoking Status: Current Every Day Smoker Frequency of alcohol use: None Drug Abuse: None Lives with: Family Family History: CVA, Hypertension - Past Medical History Cardiac Medical History: Reports: Hx Congestive Heart Failure, Hx Coronary Artery Disease, Hx Hypercholesterolemia, Hx Hypertension Pulmonary Medical History: Reports: Hx Asthma, Hx Bronchitis, Hx COPD - O2 dependent Denies: Hx Tuberculosis Renal/ Medical History: Denies: Hx Peritoneal Dialysis Musculoskeltal Medical History: Reports Hx Gout Psychiatric Medical History: Reports: Hx Depression Past Surgical History: Reports: Hx Section - x 4, Hx Tubal Ligation - Immunizations Hx Diphtheria, Pertussis, Tetanus Vaccination: Yes Hx Pneumococcal Vaccination: 05/06/12 Review of Systems - Review of Systems Constitutional: No symptoms reported EENT: No symptoms reported Cardiovascular: No symptoms reported Respiratory: See HPI Gastrointestinal: No symptoms reported Genitourinary: No symptoms reported Female Genitourinary: No symptoms reported Musculoskeletal: No symptoms reported Skin: No symptoms reported Hematologic/Lymphatic: No symptoms reported Neurological/Psychological: No symptoms reported Physical Exam - Vital signs Vitals: Resp 25 H 10/07/17 00:10 Interpretation: Normal - General General appearance: Appears well, Alert In distress: None - HEENT Head: Normocephalic, Atraumatic Eyes: Normal Pupils: PERRL - Respiratory Respiratory status: Tachypnea. No: Respiratory distress, Labored Breath sounds: Decreased air movement, Nonproductive cough, Wheezing Chest palpation: Normal - Cardiovascular Rhythm: Regular Heart sounds: Normal auscultation Murmur: No - Abdominal Inspection: Normal Distension: No distension Bowel sounds: Normal Tenderness: Nontender. No: Tender Organomegaly: No organomegaly - Back Back: Normal, Nontender. No: Tender, CVA tenderness - Extremities General upper extremity: Normal inspection, Nontender, Normal strength, Normal temperature General lower extremity: Normal inspection, Nontender, Normal strength, Normal temperature - Neurological Neuro grossly intact: Yes Cognition: Normal Orientation: AAOx4 [place] Coma Scale Eye Opening: Spontaneous [place] Coma Scale Verbal: Oriented [place] Coma Scale Motor: Obeys Commands [place] Coma Scale Total: 15 Speech: Normal Motor strength normal: LUE, RUE, LLE, RLE Sensory: Normal - Psychological Associated symptoms: Normal affect, Normal mood - Skin Skin Temperature: Warm Skin Moisture: Dry Skin Color: Normal Course - Re-evaluation Re-evalutation: Patient with tachypnea, decreased breath sounds, wheezing and some scattered rhonchi throughout. Patient is not hypoxic on my initial evaluation. Will give third DuoNeb, magnesium, solu medrol. Workup pending. EKG shows sinus tachycardia with no significant change from prior. Chest x-ray unremarkable with no significant change from prior. CBC shows leukocytosis at 18,000, nonspecific as this appears to most always be elevated. Chemistry shows approximately baseline chronic kidney disease, troponin indeterminate, patient denying any chest pain only shortness of breath and wheezing reported. After treatments patient is improved and tachypnea has resolved, however she stands she becomes extremely short of breath and has very labored breathing and appears unsteady. Discussed with hospitalist Dr. Gagnon, patient will be admitted to telemetry. Patient states satisfaction and agreement with this plan. - Vital Signs Vital signs: Temp Pulse Resp BP Pulse Ox 98.0 F 85 20 132/73 H 93 10/07/17 06:44 10/07/17 06:44 10/07/17 06:44 10/07/17 06:44 10/07/17 06:44 - Laboratory Result Diagrams: 10/07/17 00:15 10/07/17 01:37 Laboratory results interpreted by me: 10/07/17 10/07/17 10/07/17 00:15 00:15 01:37 WBC 18.1 H Hgb 11.5 L Hct 35.4 L RDW 14.1 H Seg Neutrophils % 87.0 H Lymphocytes % 7.9 L Absolute Neutrophils 15.7 H Potassium 3.4 L BUN 33 H Creatinine 1.65 H Est GFR ( Amer) 38 L Est GFR (Non-Af Amer) 32 L Glucose 116 H Calcium 10.3 H Magnesium 2.6 H Direct Bilirubin 0.6 H Discharge - Discharge Clinical Impression: COPD with exacerbation, Wheezing, Cough, Hypoxia Condition: Stable Disposition: ADMITTED INPATIENT Admitting Provider: Hospitalist Unit Admitted: Telemetry
[2017-10-07 00:42] LABS: ABSOLUTE BASOPHILS # (AUTO) 0.1 10^3/uL (0.0-0.2); ABSOLUTE EOSINOPHILS # (AUTO) 0.2 10^3/uL (0.0-0.6); ABSOLUTE LYMPHOCYTES (AUTO) 1.4 10^3/uL (0.5-4.7); ABSOLUTE MONOCYTES (AUTO) 0.7 10^3/uL (0.1-1.4); ABSOLUTE NEUT (AUTO) 15.7 10^3/uL (1.7-8.2); BASOPHILS % (AUTO) 0.3 % (0-2); EOSINOPHILS % (AUTO) 0.9 % (0-6); HEMATOCRIT 35.4 % (36.0-47.0); HEMOGLOBIN 11.5 g/dL (12.0-15.5); HGB HCT DIFFERENCE -0.9; LYMPHOCYTES % (AUTO) 7.9 % (13-45); MEAN CORPUSCULAR HEMOGLOBIN 27.5 pg (27.0-33.4); MEAN CORPUSCULAR HGB CONC 32.5 g/dL (32.0-36.0); MEAN CORPUSCULAR VOLUME 85 fl (80-97); MONOCYTES % (AUTO) 3.9 % (3-13); RED BLOOD COUNT 4.19 10^6/uL (3.72-5.28); RED CELL DISTRIBUTION WIDTH 14.1 % (11.5-14.0); WHITE BLOOD COUNT 18.1 10^3/uL (4.0-10.5)
[2017-10-07 01:07] LABS: CREATINE KINASE MB 3.84 ng/mL (<4.55)
[2017-10-07 01:14] LABS: TROPONIN I 0.081 ng/mL
--- NOTE | 2017-10-07 01:28 | RADIOLOGY REPORT (SQ) ---
EXAM DESCRIPTION: CHEST SINGLE VIEW CLINICAL HISTORY: shortness of breath COMPARISON: 08/02/2017 FINDINGS: Single frontal view of the chest. Atherosclerotic calcification of the aortic arch. Cardiomegaly. No lobar consolidation, pneumothorax, or pleural effusion. No displaced rib fractures identified. Bilateral prominent interstitial markings again identified. Upper abdominal soft tissues are unremarkable. IMPRESSION: 1. No acute pneumonic process identified. Cardiomegaly. 2. Unchanged chronic bilateral interstitial opacities.
[2017-10-07 02:20] LABS: VENOUS BLOOD BASE EXCESS 2.1 mmol/L; VENOUS BLOOD HCO3 29.1 mmol/L (20-32); VENOUS BLOOD PH 7.35 (7.30-7.42)
[2017-10-07 02:39] LABS: ALANINE AMINOTRANSFERASE 28 U/L (9-52); ALBUMIN 3.8 g/dL (3.5-5.0); ALKALINE PHOSPHATASE 113 U/L (38-126); ANION GAP 17 (5-19); ASPARTATE AMINO TRANSFERASE 20 U/L (14-36); BILIRUBIN,DIRECT 0.6 mg/dL (0.0-0.4); BILIRUBIN,TOTAL 0.6 mg/dL (0.2-1.3); BLOOD UREA NITROGEN 33 mg/dL (7-20); CALCIUM 10.3 mg/dL (8.4-10.2); CARBON DIOXIDE 27 mmol/L (22-30); CHLORIDE 100 mmol/L (98-107); CREATININE RESULT 1.65 mg/dL (0.52-1.25); GLUCOSE 116 mg/dL (75-110); POTASSIUM 3.4 mmol/L (3.6-5.0); TOTAL PROTEIN 7.5 g/dL (6.3-8.2)
[2017-10-07] MEDS ORDERED: AZITHROMYCIN INJ 500 MG VIAL IV ONE (03:00)
[2017-10-07] MEDS ORDERED: CEFTRIAXONE 1 GM/D5W RTU 1 GM/50 ML RTUPB IV ONE (03:00)
[2017-10-07] MEDS ORDERED: ACETAMINOPHEN 325 MG TABLET PO PRN (03:15)
[2017-10-07] MEDS ORDERED: LEVALBUTEROL HCL NEB 1.25 MG/3 ML AMPUL NEB PRN (03:15)
[2017-10-07] MEDS ORDERED: FUROSEMIDE INJ/PF 20 MG/2 ML SDV IV ONE (03:20)
[2017-10-07] MEDS ORDERED: AZITHROMYCIN 500 MG in DEXTROSE 5%-WATER 250 ML IV ONE (04:00)
[2017-10-07] MEDS ORDERED: AZITHROMYCIN INJ 500 MG VIAL IV PRN (04:00)
[2017-10-07] MEDS ORDERED: POTASSIUM CHLORIDE 10 MEQ TABLET.SA PO ONE (04:53)
--- NOTE | 2017-10-07 05:08 | PDOC H&P ---
History of Present Illness Admission Date/PCP: 10/07/17 03:41 PA History of Present Illness: BOOM TODD is a 61 year old female with a past medical history of chronic diastolic congestive heart failure, moderate mitral regurgitation, CKD stage III, home O2 dependent COPD who presents to the emergency department with shortness of breath for the last 24 hours. Patient reports that she was smoking cigarettes when she began having some shortness of breath. Patient also reports that she ran out of her albuterol inhaler approximately 24 hours ago as well. In the emergency department, patient received Solu-Medrol, magnesium, and several breathing treatments, but remained hypoxic and wheezing. Patient also reports that her daily weights have been somewhat up recently. She does note some peripheral edema. She also does complain of dyspnea on exertion. She is referred to hospital service for COPD exacerbation. Past Medical History Cardiac Medical History: Reports: Congestive Heart Failure, Coronary Artery Disease, Hyperlipidema, Hypertension, Heart Murmur Pulmonary Medical History: Reports: Asthma, Bronchitis, Chronic Obstructive Pulmonary Disease (COPD) - O2 dependent, Pneumonia Denies: Tuberculosis Endocrine Medical History: Reports: Obesity Renal/ Medical History: Reports: Chronic Kidney Disease Musculoskeltal Medical History: Reports: Gout Psychiatric Medical History: Reports: Depression Past Surgical History Past Surgical History: Reports: Section - x 4, Tubal Ligation Social History Smoking Status: Current Every Day Smoker Frequency of Alcohol Use: None Hx Recreational Drug Use: No Drugs: None Hx Prescription Drug Abuse: No - Advance Directive Resuscitation Status: Full Code Surrogate healthcare decision maker:: Nuria Humphreys, daughter Family History Family History: CVA, Hypertension Parental Family History Reviewed: Yes Children Family History Reviewed: Yes Sibling(s) Family History Reviewed.: Yes Medication/Allergy Home Medications: Albuterol Sulfate [Proair HFA Inhalation Aerosol 8.5 gm MDI] 2 puff IH Q6HP PRN 07/22/17 Amlodipine Besylate [Norvasc 10 mg Tablet] 10 mg PO DAILY 07/22/17 Aspirin [Ecotrin 81 mg EC Tablet] 81 mg PO DAILY 07/22/17 Budesonide/Formoterol Fumarate [Symbicort HFA 160-4.5 mcg Inhaler 6 gm] 2 puff IH Q12 07/22/17 Carvedilol [Coreg 3.125 mg Tablet] 3.125 mg PO Q12 07/22/17 Cyanocobalamin (Vitamin B-12) [Vitamin B-12 100 mcg Tablet] 100 mcg PO DAILY 01/06 Ferrous Sulfate [Feosol 325 mg Tablet] 325 mg PO BID 07/22/17 Fluticasone Propionate [Flonase Nasal [place] 50 Mcg/[place] 16 gm] 2 sprays NAREB DAILY 07/22/17 Gabapentin [Neurontin 400 mg Capsule] 400 mg PO Q12 07/22/17 Hydralazine HCl [Apresoline 50 mg Tablet] 100 mg PO Q12 07/22/17 Lisinopril [Prinivil 5 mg Tablet] 5 mg PO DAILY 07/22/17 Tiotropium [place] [Spiriva Handihaler 5 Cap/Kit (18 Mcg/Cap)] 1 cap IH DAILY Tramadol HCl [Ultram 50 mg Tablet] 50 mg PO Q12HP PRN 07/22/17 Aspirin [Ecotrin 81 mg EC Tablet] 81 mg PO DAILY tabec 07/28/17 Diltiazem HCl [Diltiazem ER] 120 mg PO DAILY #30 capsule.er NS 07/28/17 Furosemide [Lasix 40 mg Tablet] 40 mg PO BID #0 07/28/17 Furosemide [Lasix 40 mg Tablet] 40 mg PO QAM #15 tablet 08/02/17 Allergies/Adverse Reactions: No Known Allergies Allergy (Verified 05/14/17 12:18) Review of Systems Constitutional: ABSENT: chills, fever(s), headache(s), weight gain, weight loss Eyes: ABSENT: visual disturbances Ears: ABSENT: hearing changes Cardiovascular: ABSENT: chest pain, dyspnea on exertion, edema, orthropnea, palpitations Respiratory: PRESENT: cough, dyspnea. ABSENT: hemoptysis, sputum Gastrointestinal: ABSENT: abdominal pain, constipation, diarrhea, hematemesis, hematochezia, melena, nausea, vomiting Genitourinary: ABSENT: dysuria, hematuria Musculoskeletal: ABSENT: joint swelling Integumentary: ABSENT: rash, wounds Neurological: ABSENT: abnormal gait, abnormal speech, confusion, dizziness, focal weakness, syncope Psychiatric: ABSENT: anxiety, depression, homidical ideation, suicidal ideation Endocrine: ABSENT: cold intolerance, heat intolerance, polydipsia, polyuria Hematologic/Lymphatic: ABSENT: easy bleeding, easy bruising Physical Exam Vital Signs: Temp Pulse Resp BP Pulse Ox 24 H 157/85 H 95 10/07/17 04:03 10/07/17 04:02 10/07/17 04:03 General appearance: PRESENT: obese, well-developed, well-nourished, other - Moderate respiratory distress Head exam: PRESENT: atraumatic, normocephalic Eye exam: PRESENT: conjunctiva pink, EOMI, PERRLA. ABSENT: scleral icterus Ear exam: PRESENT: normal external ear exam Mouth exam: PRESENT: moist, tongue midline Neck exam: ABSENT: JVD, lymphadenopathy, thyromegaly, tracheal deviation Respiratory exam: PRESENT: accessory muscle use, prolonged expiratory phas, retraction, rhonchi, symmetrical, tachypnea, wheezes. ABSENT: crackles, rales, stridor, unlabored Cardiovascular exam: PRESENT: RRR, +S1, +S2, systolic murmur. ABSENT: diastolic murmur, rubs Pulses: PRESENT: normal dorsalis pedis pul Vascular exam: PRESENT: normal capillary refill GI/Abdominal exam: PRESENT: normal bowel sounds, soft. ABSENT: distended, firm , guarding, mass, Powell's sign, organolmegaly, rebound, rigid, tenderness Rectal exam: PRESENT: deferred Extremities exam: PRESENT: full ROM, +1 edema. ABSENT: calf tenderness, clubbing Neurological exam: PRESENT: alert, awake, oriented to person, oriented to place , oriented to time, oriented to situation, CN II-XII grossly intact. ABSENT: motor sensory deficit Psychiatric exam: PRESENT: appropriate affect, normal mood. ABSENT: homicidal ideation, suicidal ideation Skin exam: PRESENT: dry, intact, warm. ABSENT: cyanosis, rash Results Laboratory Results: 10/07/17 10/07/17 10/07/17 00:15 00:15 00:15 WBC 18.1 H Hgb 11.5 L Hct 35.4 L Plt Count 396 Sodium Potassium Chloride Carbon Dioxide Anion Gap BUN Creatinine Glucose Calcium Magnesium 2.6 H Total Bilirubin Direct Bilirubin AST ALT Alkaline Phosphatase Troponin I 0.081 Total Protein Albumin 10/07/17 01:37 WBC Hgb Hct Plt Count Sodium 144.0 Potassium 3.4 L Chloride 100 Carbon Dioxide 27 Anion Gap 17 BUN 33 H Creatinine 1.65 H Glucose 116 H Calcium 10.3 H Magnesium Total Bilirubin 0.6 Direct Bilirubin 0.6 H AST 20 ALT 28 Alkaline Phosphatase 113 Troponin I Total Protein 7.5 Albumin 3.8 Impressions: Chest X-Ray 10/07/17 00:35 IMPRESSION: 1. No acute pneumonic process identified. Cardiomegaly. 2. Unchanged chronic bilateral interstitial opacities. Status: Imported from PACS Assessment & Plan - Diagnosis (1) Acute hypoxemic respiratory failure Is this a current diagnosis for this admission?: Yes Plan: Place patient on BiPAP as she is beginning to grow increasingly tired. Patient also has history of obstructive sleep apnea and requires CPAP. Continue oxygen as required. (2) COPD with exacerbation Is this a current diagnosis for this admission?: Yes Plan: Place patient on Solu-Medrol 125 mg IV q. 8 Scheduled duo nebs and prn Xopenex In light of her leukocytosis, have concern for occult pneumonia and will place on cefepime and azithromycin (3) Hypertension Qualifiers: Hypertension type: essential hypertension Qualified Code(s): I10 - Essential (primary) hypertension Is this a current diagnosis for this admission?: Yes Plan: Norvasc, hydralazine, Coreg, lisinopril (4) Chronic diastolic heart failure Is this a current diagnosis for this admission?: Yes Plan: Echo done on 02/22/2016 reveals normal EF, grade 1 diastolic dysfunction, mild mitral regurgitation, moderate aortic regurgitation, moderate pulmonary hypertension with an LVSP of 50-60 mmHg. Patient on Coreg, Norvasc, hydralazine, and lisinopril. Increase normal Lasix to 40 mg p.o. twice daily (5) Leukocytosis Qualifiers: Leukocytosis type: unspecified Qualified Code(s): D72.829 - Elevated white blood cell count, unspecified Is this a current diagnosis for this admission?: Yes Plan: Blood cultures have been sent and will continue to monitor for improvement (6) Moderate to severe pulmonary hypertension Is this a current diagnosis for this admission?: Yes (7) Obstructive sleep apnea Is this a current diagnosis for this admission?: Yes (8) Severe obesity (BMI 35.0-39.9) with comorbidity Is this a current diagnosis for this admission?: Yes - Time Time Spent: 50 to 70 Minutes Medications reviewed and adjusted accordingly: Yes Anticipated discharge: Home Within: Other - Upon improvement of symptomatology - Inpatient Certification Based on my medical assessment, after consideration of the patient's comorbidities, presenting symptoms, or acuity I expect that the services needed warrant INPATIENT care.: Yes I certify that my determination is in accordance with my understanding of Medicare's requirements for reasonable and necessary INPATIENT services [42 CFR 412.3e].: Yes Medical Necessity: Need for Nebulizer Therapy and Monitoring of Response, Need for IV Antibiotics 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
[2017-10-07] MEDS ORDERED: HEPARIN SOD (PORCINE) 5,000 UNIT/ML 1 ML SYRINGE ONE (05:09)
[2017-10-07] MEDS: HEPARIN SOD (PORCINE) 5,000 UNIT/ML 1 ML SYRINGE SUBCUT SCH ×3 (05:30→21:41)
[2017-10-07] MEDS ORDERED: METHYLPREDNISOLONE INJ 125 MG/2 ML SDV IV SCH (06:00)
[2017-10-07] MEDS: IPRATROPIUM/ALBUTEROL 0.5-2.5 MG/3 ML AMPUL NEB SCH ×3 (08:25→19:50)
[2017-10-07 09:48] LABS: ARTERIAL BLOOD BASE EXCESS 2.9 mmol/L; ARTERIAL BLOOD O2 SATURATION 95.7 % (94-98)
[2017-10-07] MEDS ORDERED: AMLODIPINE BESYLATE 10 MG TABLET PO SCH (10:00)
[2017-10-07] MEDS ORDERED: LISINOPRIL 5 MG TABLET PO SCH (10:00)
[2017-10-07] MEDS ORDERED: (PENDING PHARMACY ID) (Cyanocobalamin (Vitamin B-12) [Vitamin B-12 100 Mcg Tablet] 100 MCG PO SCH (10:00)
[2017-10-07] MEDS ORDERED: (PENDING PHARMACY ID) (Diltiazem Hcl [Diltiazem 24hr Er] 120 MG) PO SCH (10:00)
[2017-10-07] MEDS ORDERED: DILTIAZEM HCL 120 MG CAP.SR.24H PO SCH (10:00)
[2017-10-07] MEDS ORDERED: ASPIRIN 81 MG TABLET, ENT COATED PO SCH (10:00)
--- NOTE | 2017-10-07 10:18 | Progress Note ---
Provider Note Provider Note: Patient admitted earlier this morning. Chart reviewed: Patient examined 61-year-old female with history of chronic diastolic congestive heart failure, moderate mitral regurgitation, CKD stage III, COPD and chronic hypoxic respiratory failure. She presented to the emergency room complaining of shortness of breath. She was treated with nebulizer treatment, IV Solu-Medrol and magnesium. She has been started on BiPAP. ABG done this morning showed a pH of 7.39, PCO2 48.3, PCO2 80.9, HCO3 28.6 on BiPAP 30%. WBCs 18.1. Creatinine is 1.65. Troponin is 0.081. Chest x-ray showed unchanged chronic bilateral interstitial opacities with no acute pneumonic process identified Maintain patient on BiPAP, continue aggressive neb treatment, IV Solu-Medrol, and current antibiotics. Follow TnIs. We will follow
[2017-10-07] MEDS: FAMOTIDINE 20 MG TABLET PO SCH ×2 (11:38→21:41)
[2017-10-07] MEDS: CYANOCOBALAMIN (VITAMIN B-12) 1,000 MCG TABLET PO SCH (11:38)
[2017-10-07] MEDS: FERROUS SULFATE 325 MG TABLET PO SCH ×2 (11:38→18:28)
[2017-10-07] MEDS: GABAPENTIN 400 MG CAPSULE PO SCH ×2 (11:38→21:42)
[2017-10-07] MEDS: CARVEDILOL 3.125 MG TABLET PO SCH ×2 (11:38→21:41)
[2017-10-07] MEDS: GUAIFENESIN 600 MG TABLET.SA PO SCH ×2 (11:38→21:42)
[2017-10-07] MEDS: FUROSEMIDE 40 MG TABLET PO SCH ×2 (11:38→18:28)
[2017-10-07] MEDS: FLUTICASONE NASAL SPRAY 50 MCG/SPRY 120 SPRAY/16 GM NAREB SCH (11:38)
[2017-10-07] MEDS: TIOTROPIUM BROMIDE DPI 5 CAP/KIT (18 MCG/CAP) IH SCH (11:38)
[2017-10-07] MEDS: HYDRALAZINE HCL 50 MG TABLET PO SCH ×2 (11:38→21:41)
[2017-10-07] MEDS ORDERED: HYDRALAZINE HCL INJ/PF 20 MG/1 ML SDV IV PRN ×2 (12:13→19:30)
[2017-10-07] MEDS: CEFEPIME 2 GM/D5W RTU 2 GM/50 ML RTUPB IV SCH ×2 (12:22→21:41)
[2017-10-07 12:46] LABS: ABSOLUTE LYMPHOCYTES (AUTO) 1.2 10^3/uL (0.5-4.7); ABSOLUTE MONOCYTES (AUTO) 0.1 10^3/uL (0.1-1.4); ABSOLUTE NEUT (AUTO) 8.3 10^3/uL (1.7-8.2); BASOPHILS % (AUTO) 0.3 % (0-2); HEMATOCRIT 33.3 % (36.0-47.0); HGB HCT DIFFERENCE -0.3; LYMPHOCYTES % (AUTO) 12.3 % (13-45); MEAN CORPUSCULAR HEMOGLOBIN 27.9 pg (27.0-33.4); MEAN CORPUSCULAR HGB CONC 33.2 g/dL (32.0-36.0); MEAN CORPUSCULAR VOLUME 84 fl (80-97); MONOCYTES % (AUTO) 0.8 % (3-13); RED BLOOD COUNT 3.96 10^6/uL (3.72-5.28); RED CELL DISTRIBUTION WIDTH 14.5 % (11.5-14.0); SEGMENTED NEUTROPHILS % (AUTO) 86.6 % (42-78); WHITE BLOOD COUNT 9.6 10^3/uL (4.0-10.5)
[2017-10-07 13:00] LABS: ANION GAP 15 (5-19); BLOOD UREA NITROGEN 38 mg/dL (7-20); CALCIUM 9.9 mg/dL (8.4-10.2); CARBON DIOXIDE 29 mmol/L (22-30); CHLORIDE 100 mmol/L (98-107); GLUCOSE 120 mg/dL (75-110); POTASSIUM 4.1 mmol/L (3.6-5.0); SODIUM 144.3 mmol/L (137-145)
[2017-10-07 13:25] LABS: ARTERIAL BLOOD BASE EXCESS 2.9 mmol/L; ARTERIAL BLOOD O2 SATURATION 94.6 % (94-98)
[2017-10-07] MEDS ORDERED: ASPIRIN 300 MG SUPP, RECTAL PR PRN (14:34)
[2017-10-07] MEDS ORDERED: ASPIRIN 325 MG TABLET, ENT COATED PO ONE (15:00)
--- NOTE | 2017-10-07 15:46 | EKG REPORT ---
SEVERITY:- ABNORMAL ECG - SINUS RHYTHM PROBABLE LEFT ATRIAL ABNORMALITY NONSPECIFIC INTRAVENTRICULAR CONDUCTION DELAY LEFT VENTRICULAR HYPERTROPHY : Confirmed by: Lauren Wick 07-Oct-2017 15:45:55
--- NOTE | 2017-10-07 15:46 | EKG REPORT ---
SEVERITY:- ABNORMAL ECG - SINUS TACHYCARDIA PROBABLE LEFT ATRIAL ABNORMALITY LVH WITH IVCD, LAD AND SECONDARY REPOL ABNRM : Confirmed by: Lauren Wick 07-Oct-2017 15:46:00
[2017-10-07] MEDS: METHYLPREDNISOLONE INJ 125 MG/2 ML SDV IV SCH ×2 (15:47→21:41)
[2017-10-07] MEDS ORDERED: GABAPENTIN 400 MG CAPSULE PO ONE (17:45)
[2017-10-07] MEDS ORDERED: AZITHROMYCIN 500 MG in DEXTROSE 5%-WATER 250 ML IV SCH (22:00)
[2017-10-08] MEDS: IPRATROPIUM/ALBUTEROL 0.5-2.5 MG/3 ML AMPUL NEB SCH ×4 (01:52→20:00)
[2017-10-08] MEDS ORDERED: INFLUENZA ADLT QUAD (36MOS+) 2017-18 VAC 0.5 ML SYR IM PRN (03:33)
[2017-10-08] MEDS: METHYLPREDNISOLONE INJ 125 MG/2 ML SDV IV SCH (05:18)
[2017-10-08] MEDS: HEPARIN SOD (PORCINE) 5,000 UNIT/ML 1 ML SYRINGE SUBCUT SCH ×3 (05:18→21:13)
[2017-10-08 06:19] LABS: ABSOLUTE LYMPHOCYTES (AUTO) 1.4 10^3/uL (0.5-4.7); ABSOLUTE MONOCYTES (AUTO) 0.2 10^3/uL (0.1-1.4); ABSOLUTE NEUT (AUTO) 11.5 10^3/uL (1.7-8.2); BASOPHILS % (AUTO) 0.1 % (0-2); HEMATOCRIT 28.3 % (36.0-47.0); HEMOGLOBIN 9.5 g/dL (12.0-15.5); HGB HCT DIFFERENCE 0.2; LYMPHOCYTES % (AUTO) 10.8 % (13-45); MEAN CORPUSCULAR HGB CONC 33.4 g/dL (32.0-36.0); MEAN CORPUSCULAR VOLUME 84 fl (80-97); MONOCYTES % (AUTO) 1.6 % (3-13); RED BLOOD COUNT 3.37 10^6/uL (3.72-5.28); RED CELL DISTRIBUTION WIDTH 14.2 % (11.5-14.0); SEGMENTED NEUTROPHILS % (AUTO) 87.5 % (42-78); WHITE BLOOD COUNT 13.1 10^3/uL (4.0-10.5)
[2017-10-08 06:42] LABS: ALANINE AMINOTRANSFERASE 21 U/L (9-52); ALBUMIN 3.5 g/dL (3.5-5.0); ALKALINE PHOSPHATASE 99 U/L (38-126); ANION GAP 19 (5-19); ASPARTATE AMINO TRANSFERASE 14 U/L (14-36); BILIRUBIN,DIRECT 0.4 mg/dL (0.0-0.4); BILIRUBIN,TOTAL 0.4 mg/dL (0.2-1.3); CALCIUM 9.5 mg/dL (8.4-10.2); CARBON DIOXIDE 23 mmol/L (22-30); CHLORIDE 100 mmol/L (98-107); CREATININE RESULT 2.24 mg/dL (0.52-1.25); GLUCOSE 131 mg/dL (75-110); POTASSIUM 3.9 mmol/L (3.6-5.0); SODIUM 141.5 mmol/L (137-145); TOTAL PROTEIN 6.7 g/dL (6.3-8.2)
[2017-10-08 07:23] LABS: BLOOD UREA NITROGEN 59 mg/dL (7-20)
[2017-10-08 07:27] LABS: FREE T3 2.16 pg/mL (2.77-5.27)
[2017-10-08 07:40] LABS: THYROID STIMULATING HORMONE 0.15 uIU/mL (0.47-4.68)
[2017-10-08] MEDS ORDERED: AZITHROMYCIN 500 MG in DEXTROSE 5%-WATER 250 ML IV SCH (10:00)
[2017-10-08] MEDS ORDERED: LISINOPRIL 10 MG TABLET PO SCH (10:30)
--- NOTE | 2017-10-08 10:52 | PDOC PROGRESS REPORT ---
Subjective Progress Note for:: 10/08/17 Subjective:: Date of hospitalization: Follow-up visit for COPD exacerbation in a patient with chronic diastolic congestive heart failure, CKD 3, chronic hypoxic respiratory failure 61-year-old female with history of chronic diastolic CHF, mitral regurgitation, CKD stage III, COPD and chronic hypoxic respiratory failure. She presented to emergency room complaining of shortness of breath of several days' duration. She received nebulizer treatment IV Solu-Medrol and magnesium but was still significantly short of breath. She was started on BiPAP. ABG done yesterday revealed a pH of 7.39, PCO2 of 48.3, PaO2 of 80.9, HCO3 28.6 on BiPAP with FiO2 30%. Chest x-ray showed unchanged chronic bilateral interstitial opacities with no acute pneumonic processes noted. The patient was continued on BiPAP, aggressive nebulizer treatment and IV steroids and IV antibiotics. Subjective: Overnight events noted. Patient became more alert and responsive late yesterday evening and overnight. She has not required BiPAP therapy since yesterday afternoon. This morning patient reports feeling significantly much better. However she still has shortness of breath with minimal activity. Denies chest pain. Denies nausea, vomiting, diarrhea, or any focal neurologic deficit. Physical Exam Vital Signs: Temp Pulse Resp BP Pulse Ox 98.4 F 72 19 157/76 H 91 L 10/08/17 05:31 10/08/17 05:31 10/08/17 05:31 10/08/17 05:31 10/08/17 05:31 Pulse Oximeter Continuous Start: 10/07/17 03: 16 Freq: RTQ4 Status: Active Document 10/08/17 04:05 [facility] (Rec: 10/08/17 04:18 [facility] [email or web address]) Pulse Oximetry Assessment Oxygen Saturation (92-100) 99 Oxygen Delivery Method Bi-pap Equipment Usage Equipment in Use Continuous Pulse Oximeter 24 Hour Charge Charge Now Continuous SpO2 Machine # 9 Intake & Output 10/06/17 10/07/17 10/08/17 06:59 06:59 06:59 Intake Total 1297 Balance 1297 Weight 105.7 kg 106 kg General appearance: PRESENT: no acute distress, cooperative, obese Head exam: PRESENT: atraumatic, normocephalic Respiratory exam: PRESENT: decreased breath sounds, symmetrical, unlabored, wheezes. ABSENT: accessory muscle use, chest wall tenderness, clear to auscultation brandon, crackles, prolonged expiratory phas, rales, retraction, rhonchi, stridor, tachypnea, other Cardiovascular exam: PRESENT: RRR, +S1, +S2. ABSENT: bradycardia, clicks, diastolic murmur, gallop, irregular rhythm, rubs, systolic murmur, tachycardia, other Neurological exam: PRESENT: awake, oriented to person, oriented to place, oriented to time, oriented to situation, reflexes normal, CN II-XII grossly intact Skin exam: PRESENT: intact, normal color, warm Results Laboratory Results: 10/08/17 05:15 10/07/17 10/07/17 10/07/17 09:13 12:36 12:36 WBC 9.6 RBC 3.96 Hgb 11.0 L Hct 33.3 L MCV 84 MCH 27.9 MCHC 33.2 RDW 14.5 H Plt Count 324 Seg Neutrophils % 86.6 H Lymphocytes % 12.3 L Monocytes % 0.8 L Eosinophils % 0.0 Basophils % 0.3 Absolute Neutrophils 8.3 H Absolute Lymphocytes 1.2 Absolute Monocytes 0.1 Absolute Eosinophils 0.0 Absolute Basophils 0.0 Carbonic Acid 1.45 H HCO3/H2CO3 Ratio 19:1 ABG pH 7.39 ABG pCO2 48.3 H ABG pO2 80.9 ABG HCO3 28.6 H ABG O2 Saturation 95.7 ABG Base Excess 2.9 FiO2 30% Sodium 144.3 Potassium 4.1 Chloride 100 Carbon Dioxide 29 Anion Gap 15 BUN 38 H Creatinine 1.80 H Est GFR ( Amer) 35 L Est GFR (Non-Af Amer) 29 L Glucose 120 H Calcium 9.9 Magnesium 2.0 Ammonia 10/07/17 10/07/17 10/08/17 12:36 13:05 05:15 WBC 13.1 H RBC 3.37 L Hgb 9.5 L Hct 28.3 L MCV 84 MCH 28.0 MCHC 33.4 RDW 14.2 H Plt Count 331 Seg Neutrophils % 87.5 H Lymphocytes % 10.8 L Monocytes % 1.6 L Eosinophils % 0.0 Basophils % 0.1 Absolute Neutrophils 11.5 H Absolute Lymphocytes 1.4 Absolute Monocytes 0.2 Absolute Eosinophils 0.0 Absolute Basophils 0.0 Carbonic Acid 1.26 HCO3/H2CO3 Ratio 21:1 ABG pH 7.44 ABG pCO2 41.7 ABG pO2 70.3 L ABG HCO3 27.4 H ABG O2 Saturation 94.6 ABG Base Excess 2.9 FiO2 30% Sodium Potassium Chloride Carbon Dioxide Anion Gap BUN Creatinine Est GFR ( Amer) Est GFR (Non-Af Amer) Glucose Calcium Magnesium Ammonia < 8.7 L 10/07/17 10/07/17 10/07/17 10:36 12:36 16:40 Creatine Kinase 110 Troponin I 0.136 0.088 10/07/17 22:42 Creatine Kinase Troponin I 0.062 Impressions: Chest X-Ray 10/07/17 00:35 IMPRESSION: 1. No acute pneumonic process identified. Cardiomegaly. 2. Unchanged chronic bilateral interstitial opacities. Status: Image reviewed by me Assessment & Plan - Diagnosis (1) COPD with exacerbation Is this a current diagnosis for this admission?: Yes Plan: Acute COPD exacerbation in an active smoker. Chest x-ray with no acute infiltrate. Improving. Continue aggressive nebulizer treatment, change IV Solu -Medrol to oral prednisone 40 mg daily for 5 days, change IV antibiotics to oral levofloxacin. Pulmonology consult pending (2) Accelerated essential hypertension Is this a current diagnosis for this admission?: Yes Plan: BP not at goal. Adjusted home medications: Increase carvedilol to 12.5 mg twice daily, continue hydralazine and amlodipine (3) Acute on chronic respiratory failure Qualifiers: Respiratory failure complication: hypoxia Qualified Code(s): J96.21 - Acute and chronic respiratory failure with hypoxia Plan: Acute on chronic hypoxic respiratory failure (4) Acute kidney injury superimposed on chronic kidney disease Is this a current diagnosis for this admission?: Yes Plan: Acute on chronic kidney disease. Cr 2.24 [1.65]. We will hold lisinopril, furosemide. Follow renal function (5) Chronic diastolic heart failure Is this a current diagnosis for this admission?: Yes Plan: Compensated. Euvolemic. Home furosemide held due to worsening kidney function (6) Obstructive sleep apnea Is this a current diagnosis for this admission?: Yes Plan: Patient is supposed to have an outpatient sleep study. (7) Severe obesity (BMI 35.0-39.9) with comorbidity Is this a current diagnosis for this admission?: Yes Plan: Moderate obesity likely due to excess caloric intake, BMI 35.5. Outpatient weight loss recommended (8) DVT prophylaxis Plan: Subcutaneous heparin - Time Time Spent with patient: 35 or more minutes Medications reviewed and adjusted accordingly: Yes Anticipated discharge: Home - Inpatient Certification Medical Necessity: Risk of Complication if Not Cared For in Hospital
[2017-10-08] MEDS ORDERED: LEVOFLOXACIN 750 MG TABLET PO SCH (11:00)
[2017-10-08] MEDS ORDERED: AMLODIPINE BESYLATE 10 MG TABLET PO ONE (11:00)
[2017-10-08 11:07] LABS: APPEARANCE,URINE SLIGHTLY-CLOUDY; BILIRUBIN,URINE NEGATIVE (NEGATIVE); GLUCOSE, URINE NEGATIVE (NEGATIVE); KETONES,URINE NEGATIVE (NEGATIVE); LEUKOCYTE ESTERASE,URINE LARGE (NEGATIVE); NITRITE,URINE NEGATIVE (NEGATIVE); PROTEIN,URINE 100 mg/dL (NEGATIVE); URINE SPECIFIC GRAVITY 1.012; UROBILINOGEN,URINE NEGATIVE mg/dL (<2.0)
[2017-10-08] MEDS: ASPIRIN 325 MG TABLET, ENT COATED PO SCH (11:25)
[2017-10-08] MEDS: FERROUS SULFATE 325 MG TABLET PO SCH ×2 (11:26→18:34)
[2017-10-08] MEDS: FAMOTIDINE 20 MG TABLET PO SCH ×2 (11:26→21:13)
[2017-10-08] MEDS: CYANOCOBALAMIN (VITAMIN B-12) 1,000 MCG TABLET PO SCH (11:26)
[2017-10-08] MEDS: GUAIFENESIN 600 MG TABLET.SA PO SCH ×2 (11:27→21:13)
[2017-10-08] MEDS: FLUTICASONE NASAL SPRAY 50 MCG/SPRY 120 SPRAY/16 GM NAREB SCH (11:27)
[2017-10-08] MEDS: GABAPENTIN 400 MG CAPSULE PO SCH ×2 (11:27→21:13)
[2017-10-08] MEDS: TIOTROPIUM BROMIDE DPI 5 CAP/KIT (18 MCG/CAP) IH SCH (11:28)
[2017-10-08] MEDS: CARVEDILOL 12.5 MG TABLET PO SCH ×2 (12:12→22:45)
[2017-10-08 12:14] LABS: HEMATOCRIT 30.1 % (36.0-47.0); HGB HCT DIFFERENCE -0.1; MEAN CORPUSCULAR HEMOGLOBIN 27.8 pg (27.0-33.4); MEAN CORPUSCULAR HGB CONC 33.3 g/dL (32.0-36.0); MEAN CORPUSCULAR VOLUME 84 fl (80-97); RED CELL DISTRIBUTION WIDTH 14.5 % (11.5-14.0); WHITE BLOOD COUNT 21.1 10^3/uL (4.0-10.5)
[2017-10-08] MEDS: HYDRALAZINE HCL 50 MG TABLET PO SCH ×2 (12:15→22:45)
[2017-10-08] MEDS ORDERED: NORMAL SALINE 1000 ML 1,000 ML IV PRN (14:06)
[2017-10-08 14:49] LABS: ANION GAP 18 (5-19); BLOOD UREA NITROGEN 64 mg/dL (7-20); CALCIUM 9.4 mg/dL (8.4-10.2); CARBON DIOXIDE 21 mmol/L (22-30); CHLORIDE 100 mmol/L (98-107); CREATININE RESULT 2.19 mg/dL (0.52-1.25); GLUCOSE 142 mg/dL (75-110); POTASSIUM 4.1 mmol/L (3.6-5.0)
[2017-10-08] MEDS: LEVOFLOXACIN 750 MG TABLET PO SCH (15:19)
[2017-10-09] MEDS: IPRATROPIUM/ALBUTEROL 0.5-2.5 MG/3 ML AMPUL NEB SCH ×4 (02:03→19:51)
[2017-10-09] MEDS: HEPARIN SOD (PORCINE) 5,000 UNIT/ML 1 ML SYRINGE SUBCUT SCH ×3 (05:08→21:58)
[2017-10-09] MEDS: GUAIFENESIN 600 MG TABLET.SA PO SCH ×2 (09:18→21:58)
[2017-10-09] MEDS: AMLODIPINE BESYLATE 10 MG TABLET PO SCH (09:19)
[2017-10-09] MEDS: FAMOTIDINE 20 MG TABLET PO SCH ×2 (09:19→21:58)
[2017-10-09] MEDS: GABAPENTIN 400 MG CAPSULE PO SCH ×2 (09:20→21:58)
[2017-10-09] MEDS: ASPIRIN 325 MG TABLET, ENT COATED PO SCH (09:20)
[2017-10-09] MEDS: FERROUS SULFATE 325 MG TABLET PO SCH ×2 (09:21→17:06)
[2017-10-09] MEDS: PREDNISONE 20 MG TABLET PO SCH (09:22)
[2017-10-09] MEDS: CYANOCOBALAMIN (VITAMIN B-12) 1,000 MCG TABLET PO SCH (09:22)
[2017-10-09] MEDS: FLUTICASONE NASAL SPRAY 50 MCG/SPRY 120 SPRAY/16 GM NAREB SCH (09:23)
[2017-10-09] MEDS: TIOTROPIUM BROMIDE DPI 5 CAP/KIT (18 MCG/CAP) IH SCH (09:24)
--- NOTE | 2017-10-09 09:44 | PDOC PROGRESS REPORT ---
Subjective Progress Note for:: 10/09/17 Subjective:: Date of hospitalization: Follow-up visit for COPD exacerbation in a patient with chronic diastolic congestive heart failure, CKD 3, chronic hypoxic respiratory failure 61-year-old female with history of chronic diastolic CHF, mitral regurgitation, CKD stage III, COPD and chronic hypoxic respiratory failure. She presented to emergency room complaining of shortness of breath of several days' duration. She received nebulizer treatment IV Solu-Medrol and magnesium but was still significantly short of breath. She was started on BiPAP. ABG done yesterday revealed a pH of 7.39, PCO2 of 48.3, PaO2 of 80.9, HCO3 28.6 on BiPAP with FiO2 30%. Chest x-ray showed unchanged chronic bilateral interstitial opacities with no acute pneumonic processes noted. The patient was continued on BiPAP, aggressive nebulizer treatment and IV steroids and IV antibiotics. She is responding to treatment adequately. Hospital course is complicated by worsening acute kidney injury, uncontrolled hypertension, and mildly positive cardiac enzymes. Subjective: Overnight events noted. She has not required BiPAP over the past 36 hours. She reports feeling significantly much better. However she still has shortness of breath with minimal activity. Denies chest pain. Denies nausea, vomiting, diarrhea, or any focal neurologic deficit. She is afebrile. She is looking forward to taking part in physical therapy Physical Exam Vital Signs: Temp Pulse Resp BP Pulse Ox 97.5 F 60 17 156/73 H 100 10/09/17 07:11 10/09/17 07:11 10/09/17 07:11 10/09/17 07:11 10/09/17 07:11 Pulse Oximeter Continuous Start: 10/07/17 03: 16 Freq: RTQ4 Status: Active Document 10/09/17 04:05 [facility] (Rec: 10/09/17 05:17 [facility] [email or web address]) Pulse Oximetry Assessment Oxygen Saturation (92-100) 99 Oxygen Delivery Method Bi-pap Fraction of Inspired Oxygen (FIO2) 30 Equipment Usage Equipment in Use Continuous SpO2 Machine # 9 Intake & Output 10/08/17 10/09/17 10/10/17 06:59 06:59 06:59 Intake Total 1297 4549 Output Total 850 Balance 1297 3699 Weight 106 kg 106.4 kg General appearance: PRESENT: cooperative, mild distress, obese Head exam: PRESENT: atraumatic, normocephalic Respiratory exam: PRESENT: decreased breath sounds, prolonged expiratory phas, rhonchi, symmetrical Cardiovascular exam: PRESENT: RRR, +S1, +S2 Pulses: PRESENT: +1 pedal pulses bilateral GI/Abdominal exam: PRESENT: normal bowel sounds, soft. ABSENT: ascites, diminished bowel sounds, distended, firm, guarding, hernia, hyperactive bowel sounds, hypoactive bowel sounds, mass, Powell's sign, organolmegaly, rebound, rigid, tenderness, other Neurological exam: PRESENT: alert, awake, oriented to person, oriented to place , oriented to time, oriented to situation, reflexes normal, CN II-XII grossly intact Psychiatric exam: PRESENT: anxious Results Laboratory Results: 10/08/17 11:35 10/08/17 14:20 10/08/17 10/08/17 10/08/17 10:25 11:35 11:35 WBC 21.1 H RBC 3.60 L Hgb 10.0 L Hct 30.1 L MCV 84 MCH 27.8 MCHC 33.3 RDW 14.5 H Plt Count 286 Sodium Cancelled Potassium Cancelled Chloride Cancelled Carbon Dioxide Cancelled Anion Gap Cancelled BUN Cancelled Creatinine Cancelled Est GFR ( Amer) Cancelled Est GFR (Non-Af Amer) Cancelled Glucose Cancelled Calcium Cancelled Urine Color YELLOW Urine Appearance SLIGHTLY-CLOUDY Urine pH 5.0 Ur Specific [place] 1.012 Urine Protein 100 H Urine Glucose (UA) NEGATIVE Urine Ketones NEGATIVE Urine Blood NEGATIVE Urine Nitrite NEGATIVE Ur Leukocyte Esterase LARGE H Urine WBC (Auto) 2 Urine RBC (Auto) 9 10/08/17 14:20 WBC RBC Hgb Hct MCV MCH MCHC RDW Plt Count Sodium 139.0 Potassium 4.1 Chloride 100 Carbon Dioxide 21 L Anion Gap 18 BUN 64 H Creatinine 2.19 H Est GFR ( Amer) 28 L Est GFR (Non-Af Amer) 23 L Glucose 142 H Calcium 9.4 Urine Color Urine Appearance Urine pH Ur Specific [place] Urine Protein Urine Glucose (UA) Urine Ketones Urine Blood Urine Nitrite Ur Leukocyte Esterase Urine WBC (Auto) Urine RBC (Auto) 10/07/17 10/07/17 10/07/17 10:36 12:36 16:40 Creatine Kinase 110 Troponin I 0.136 0.088 10/07/17 10/08/17 22:42 05:15 Creatine Kinase Troponin I 0.062 0.041 Impressions: Chest X-Ray 10/07/17 00:35 IMPRESSION: 1. No acute pneumonic process identified. Cardiomegaly. 2. Unchanged chronic bilateral interstitial opacities. Status: Image reviewed by me Assessment & Plan - Diagnosis (1) COPD with exacerbation Is this a current diagnosis for this admission?: Yes Plan: Acute COPD exacerbation in an active smoker. Chest x-ray with no acute infiltrate. Improving but still dyspneic with minimal activity. Continue aggressive nebulizer treatment, changed IV Solu-Medrol to oral prednisone 40 mg daily for 5 days, changed IV antibiotics to oral levofloxacin. Plan to discharge home in the next 24-48 hours (2) Accelerated essential hypertension Is this a current diagnosis for this admission?: Yes Plan: BP not at goal but improved after I adjusted home medications: Increase carvedilol to 12.5 mg twice daily, continue hydralazine and amlodipine. Lisinopril discontinued due to MARIBEL/CKD. (3) Acute on chronic respiratory failure Qualifiers: Respiratory failure complication: hypoxia Qualified Code(s): J96.21 - Acute and chronic respiratory failure with hypoxia Plan: Acute on chronic hypoxic respiratory failure. Improving. No longer requiring BiPAP. Continue supplemental oxygen and wean as able (4) Acute kidney injury superimposed on chronic kidney disease Is this a current diagnosis for this admission?: Yes Plan: Acute on chronic kidney disease, likely due to dehydration and medications. Cr 2.1 [2.24][1.65]. Continue holding lisinopril, furosemide. Follow renal function (5) Chronic diastolic heart failure Is this a current diagnosis for this admission?: Yes Plan: Compensated. Euvolemic. Home furosemide held due to worsening kidney function. Plan to resume home medications upon discharge (6) Obstructive sleep apnea Is this a current diagnosis for this admission?: Yes Plan: Patient is supposed to have an outpatient sleep study. Will defer to primary care physician (7) Severe obesity (BMI 35.0-39.9) with comorbidity Is this a current diagnosis for this admission?: Yes Plan: Moderate obesity likely due to excess caloric intake, BMI 35.5. Outpatient weight loss recommended (8) DVT prophylaxis Plan: Subcutaneous heparin - Time Time Spent with patient: 35 or more minutes Medications reviewed and adjusted accordingly: Yes Anticipated discharge: Home with Homehealth - Inpatient Certification Medical Necessity: Risk of Complication if Not Cared For in Hospital - To discharge home within the next 1-2 days
[2017-10-09] MEDS: HYDRALAZINE HCL 50 MG TABLET PO SCH ×2 (10:08→23:24)
[2017-10-09] MEDS: CARVEDILOL 12.5 MG TABLET PO SCH ×2 (10:08→23:25)
[2017-10-09 11:38] LABS: ANION GAP 15 (5-19); BLOOD UREA NITROGEN 65 mg/dL (7-20); CALCIUM 9.2 mg/dL (8.4-10.2); CARBON DIOXIDE 23 mmol/L (22-30); CHLORIDE 103 mmol/L (98-107); CREATININE RESULT 2.12 mg/dL (0.52-1.25); GLUCOSE 98 mg/dL (75-110); POTASSIUM 3.6 mmol/L (3.6-5.0); SODIUM 140.9 mmol/L (137-145)
[2017-10-10] MEDS: IPRATROPIUM/ALBUTEROL 0.5-2.5 MG/3 ML AMPUL NEB SCH ×4 (02:20→19:43)
[2017-10-10] MEDS: HEPARIN SOD (PORCINE) 5,000 UNIT/ML 1 ML SYRINGE SUBCUT SCH ×3 (05:49→21:18)
--- NOTE | 2017-10-10 10:17 | PDOC CONSULTATION ---
Consultation Consult Date: 10/07/17 Attending physician:: JABIER CHESTER Consult reason:: acute resp failure History of Present Illness Admission Date/PCP: 10/07/17 03:41 History of Present Illness: BOOM TODD is a 61 year old female with a past medical history of chronic diastolic congestive heart failure, moderate mitral regurgitation, CKD stage III, home O2 dependent COPD who presents to the emergency department with shortness of breath for the last 24 hours. Patient reports that she was smoking cigarettes when she began having some shortness of breath. Patient also reports that she ran out of her albuterol inhaler approximately 24 hours ago as well. In the emergency department, patient received Solu-Medrol, magnesium, and several breathing treatments, but remained hypoxic and wheezing. Patient also reports that her daily weights have been somewhat up recently. She does note some peripheral edema. She also does complain of dyspnea on exertion. She is referred to hospital service for COPD exacerbation. Past Medical History Cardiac Medical History: Reports: Congestive Heart Failure, Coronary Artery Disease, Hyperlipidema, Hypertension, Heart Murmur Pulmonary Medical History: Reports: Asthma, Bronchitis, Chronic Obstructive Pulmonary Disease (COPD) - O2 dependent, Pneumonia Denies: Tuberculosis Endocrine Medical History: Reports: Obesity Renal/ Medical History: Reports: Chronic Kidney Disease Malignancy Medical History: Reports: None GI Medical History: Denies: Cirrhosis, Crohn's Disease, Diverticulitis, Gastroesophageal Reflux Disease, Hepatitis, Hiatal Hernia, Peptic Ulcer Disease Musculoskeltal Medical History: Reports: Gout Denies: Arthritis, Fibromyalgia Skin Medical History: Denies: Eczema, Psoriasis Psychiatric Medical History: Reports: Depression Traumatic Medical History: Denies: Gunshot Wound, Pneumothorax, Stab Wound, Traumatic Brain Injury Hematology: Denies: Hemophilia, Sickle Cell Disease, Bleeding Tendencies Infectious Medical History: Reports: Hepatitis C Denies: Hepatitis B Past Surgical History Past Surgical History: Reports: Section - x 4, Tubal Ligation Social History Information Source: Patient, [facility] Records Lives with: Family Smoking Status: Current Every Day Smoker Passive smoke exposure as: Both Frequency of Alcohol Use: None Hx Recreational Drug Use: No Drugs: None Hx Prescription Drug Abuse: No Do you have pets?: No Have you had any respiratory illnesses as a child?: No Have you been exposed to any sick contacts recently?: No Have you had any recent respiratory illnesses?: No Have you travelled outside of [place] in the past 12 months?: No - Advance Directive Resuscitation Status: Full Code Family History Family History: CVA, Hypertension Parental Family History Reviewed: Yes Children Family History Reviewed: Yes Sibling(s) Family History Reviewed.: Yes Medication/Allergy Home Medications: Albuterol Sulfate [Proair HFA Inhalation Aerosol 8.5 gm MDI] 2 puff IH Q6HP PRN 07/22/17 Amlodipine Besylate [Norvasc 10 mg Tablet] 10 mg PO DAILY 07/22/17 Aspirin [Ecotrin 81 mg EC Tablet] 81 mg PO DAILY 07/22/17 Budesonide/Formoterol Fumarate [Symbicort HFA 160-4.5 mcg Inhaler 6 gm] 2 puff IH Q12 07/22/17 Carvedilol [Coreg 3.125 mg Tablet] 3.125 mg PO Q12 07/22/17 Cyanocobalamin (Vitamin B-12) [Vitamin B-12 100 mcg Tablet] 100 mcg PO DAILY 01/06 Ferrous Sulfate [Feosol 325 mg Tablet] 325 mg PO BID 07/22/17 Fluticasone Propionate [Flonase Nasal Bryan 50 Mcg/Bryan 16 gm] 2 sprays NASL DAILY 07/22/17 Gabapentin [Neurontin 400 mg Capsule] 400 mg PO Q12 07/22/17 Hydralazine HCl [Apresoline 50 mg Tablet] 100 mg PO Q12 07/22/17 Lisinopril [Prinivil 5 mg Tablet] 5 mg PO DAILY 07/22/17 Tiotropium [place] [Spiriva Handihaler 5 Cap/Kit (18 Mcg/Cap)] 1 cap IN DAILY Tramadol HCl [Ultram 50 mg Tablet] 50 mg PO Q12HP PRN 07/22/17 Furosemide [Lasix 40 mg Tablet] 40 mg PO BID #0 07/28/17 Allergies/Adverse Reactions: No Known Allergies Allergy (Verified 05/14/17 12:18) Review of Systems Constitutional: PRESENT: fatigue. ABSENT: anorexia, chills, fever(s), weakness Eyes: ABSENT: visual disturbances Ears: ABSENT: hearing changes Cardiovascular: PRESENT: dyspnea on exertion, edema, orthropnea. ABSENT: chest pain, palpitations Respiratory: ABSENT: cough, dyspnea Gastrointestinal: PRESENT: constipation, dysphagia, heartburn. ABSENT: abdominal pain, bloating, coffee ground emesis, diarrhea, hematemesis, hematochezia, melena, nausea, vomiting Genitourinary: PRESENT: nocturia. ABSENT: difficulty urinating, dysuria, hematuria Musculoskeletal: PRESENT: back pain. ABSENT: deformity, joint swelling Integumentary: PRESENT: rash. ABSENT: lesions, pruritus Neurological: ABSENT: abnormal gait, abnormal movements, abnormal speech, confusion, convulsions, focal weakness, lack of coordination, memory loss, restless legs Psychiatric: ABSENT: hallucinations, homidical ideation, suicidal ideation Endocrine: ABSENT: cold intolerance, heat intolerance, menstrual abnormalities Hematologic/Lymphatic: ABSENT: easy bleeding, easy bruising, lymphadenopathy Physical Exam Vital Signs: Temp Pulse Resp BP Pulse Ox 97.9 F 78 23 H 161/96 H 98 10/07/17 07:52 10/07/17 08:25 10/07/17 08:25 10/07/17 11:21 10/07/17 08:25 Intake & Output 10/06/17 10/07/17 10/08/17 06:59 06:59 06:59 Intake Total 0 Balance 0 Weight 105.7 kg General appearance: PRESENT: no acute distress, cooperative, disheveled, morbidly obese, well-developed Head exam: PRESENT: atraumatic, normocephalic Eye exam: PRESENT: conjunctiva pale, EOMI Mouth exam: PRESENT: dry mucosa, neck supple, tongue midline Teeth exam: PRESENT: edentulous Neck exam: ABSENT: carotid bruit, JVD, lymphadenopathy, thyromegaly Respiratory exam: PRESENT: decreased breath sounds, prolonged expiratory phas, rhonchi, symmetrical, unlabored, wheezes. ABSENT: accessory muscle use, chest wall tenderness, clear to auscultation brandon, crackles, rales, retraction, stridor , tachypnea Cardiovascular exam: PRESENT: RRR, +S1, +S2. ABSENT: irregular rhythm Pulses: PRESENT: normal radial pulses GI/Abdominal exam: PRESENT: normal bowel sounds, soft. ABSENT: distended, guarding, mass, organolmegaly, rebound, tenderness Extremities exam: ABSENT: calf tenderness, clubbing, joint swelling, pedal edema , tenderness Musculoskeletal exam: ABSENT: deformity, dislocation, tenderness Neurological exam: PRESENT: alert, awake Psychiatric exam: PRESENT: normal mood Skin exam: PRESENT: dry, warm Results Laboratory Results: 10/07/17 12:36 10/07/17 12:36 10/07/17 10/07/17 10/07/17 09:13 12:36 12:36 WBC 9.6 RBC 3.96 Hgb 11.0 L Hct 33.3 L MCV 84 MCH 27.9 MCHC 33.2 RDW 14.5 H Plt Count 324 Seg Neutrophils % 86.6 H Lymphocytes % 12.3 L Monocytes % 0.8 L Eosinophils % 0.0 Basophils % 0.3 Absolute Neutrophils 8.3 H Absolute Lymphocytes 1.2 Absolute Monocytes 0.1 Absolute Eosinophils 0.0 Absolute Basophils 0.0 Carbonic Acid 1.45 H HCO3/H2CO3 Ratio 19:1 ABG pH 7.39 ABG pCO2 48.3 H ABG pO2 80.9 ABG HCO3 28.6 H ABG O2 Saturation 95.7 ABG Base Excess 2.9 FiO2 30% Sodium 144.3 Potassium 4.1 Chloride 100 Carbon Dioxide 29 Anion Gap 15 BUN 38 H Creatinine 1.80 H Est GFR ( Amer) 35 L Est GFR (Non-Af Amer) 29 L Glucose 120 H Calcium 9.9 Magnesium 2.0 Ammonia 10/07/17 10/07/17 12:36 13:05 WBC RBC Hgb Hct MCV MCH MCHC RDW Plt Count Seg Neutrophils % Lymphocytes % Monocytes % Eosinophils % Basophils % Absolute Neutrophils Absolute Lymphocytes Absolute Monocytes Absolute Eosinophils Absolute Basophils Carbonic Acid 1.26 HCO3/H2CO3 Ratio 21:1 ABG pH 7.44 ABG pCO2 41.7 ABG pO2 70.3 L ABG HCO3 27.4 H ABG O2 Saturation 94.6 ABG Base Excess 2.9 FiO2 30% Sodium Potassium Chloride Carbon Dioxide Anion Gap BUN Creatinine Est GFR ( Amer) Est GFR (Non-Af Amer) Glucose Calcium Magnesium Ammonia < 8.7 L 10/07/17 10:36 Troponin I 0.136 Impressions: Chest X-Ray 10/07/17 00:35 IMPRESSION: 1. No acute pneumonic process identified. Cardiomegaly. 2. Unchanged chronic bilateral interstitial opacities. Assessment & Plan - Diagnosis (1) Acute dyspnea Is this a current diagnosis for this admission?: Yes Plan: Gentle diuresis bronchodilator therapy (2) Acute hypoxemic respiratory failure Is this a current diagnosis for this admission?: Yes Plan: Supplemental oxygen as needed (3) Acute kidney injury superimposed on chronic kidney disease Is this a current diagnosis for this admission?: Yes (4) Acute on chronic respiratory failure Qualifiers: Respiratory failure complication: hypoxia Qualified Code(s): J96.21 - Acute and chronic respiratory failure with hypoxia Is this a current diagnosis for this admission?: Yes Plan: Continue supplemental oxygen suspect this will be necessary upon discharge (5) Chronic diastolic heart failure Is this a current diagnosis for this admission?: Yes
--- NOTE | 2017-10-10 10:19 | PDOC PROGRESS REPORT ---
Subjective Progress Note for:: 10/09/17 Subjective:: Feels a little better Physical Exam Vital Signs: Temp Pulse Resp BP Pulse Ox 97.9 F 55 L 17 152/78 H 100 10/10/17 04:00 10/10/17 04:00 10/10/17 04:00 10/10/17 04:00 10/10/17 04:30 Pulse Oximeter Continuous Start: 10/07/17 03: 16 Freq: RTQ4 Status: Active Document 10/10/17 04:30 EAL (Rec: 10/10/17 05:30 EAL [email or web address]) Pulse Oximetry Assessment Oxygen Saturation (92-100) 100 Oxygen Flow Rate (L/min) 2.5 Oxygen Delivery Method Nasal Cannula Equipment Usage Equipment in Use Continuous SpO2 Machine # 9 Intake & Output 10/09/17 10/10/17 10/11/17 06:59 06:59 06:59 Intake Total 4549 3110 Output Total 850 Balance 3699 3110 Weight 106.4 kg 109.9 kg General appearance: PRESENT: no acute distress, cooperative, disheveled, morbidly obese, well-developed Head exam: PRESENT: atraumatic, normocephalic Eye exam: PRESENT: conjunctiva pale, EOMI Mouth exam: PRESENT: dry mucosa, neck supple, tongue midline Teeth exam: PRESENT: edentulous Neck exam: ABSENT: carotid bruit, JVD, lymphadenopathy, thyromegaly Respiratory exam: PRESENT: decreased breath sounds, prolonged expiratory phas, rhonchi, symmetrical, unlabored. ABSENT: accessory muscle use, chest wall tenderness, clear to auscultation brandon, crackles, rales, retraction, stridor, tachypnea Cardiovascular exam: PRESENT: RRR, +S1, +S2. ABSENT: irregular rhythm Pulses: PRESENT: normal radial pulses GI/Abdominal exam: PRESENT: normal bowel sounds, soft. ABSENT: distended, guarding, mass, organolmegaly, rebound, tenderness Extremities exam: ABSENT: calf tenderness, clubbing, joint swelling, pedal edema Musculoskeletal exam: ABSENT: deformity, dislocation, tenderness Neurological exam: PRESENT: alert, awake Psychiatric exam: PRESENT: normal mood Skin exam: PRESENT: dry, warm Results Laboratory Results: 10/08/17 11:35 10/09/17 11:03 10/09/17 11:03 Sodium 140.9 Potassium 3.6 Chloride 103 Carbon Dioxide 23 Anion Gap 15 BUN 65 H Creatinine 2.12 H Est GFR ( Amer) 29 L Est GFR (Non-Af Amer) 24 L Glucose 98 Calcium 9.2 10/08/17 10:25 Clean Catch Midstream Urine Culture - Final 3,000 col/ml 10/07/17 10/07/17 10/07/17 10:36 12:36 16:40 Creatine Kinase 110 Troponin I 0.136 0.088 10/07/17 10/08/17 22:42 05:15 Creatine Kinase Troponin I 0.062 0.041 Impressions: Chest X-Ray 10/07/17 00:35 IMPRESSION: 1. No acute pneumonic process identified. Cardiomegaly. 2. Unchanged chronic bilateral interstitial opacities. Assessment & Plan - Diagnosis (1) Acute dyspnea Plan: Gentle diuresis bronchodilator therapy (2) Acute hypoxemic respiratory failure Is this a current diagnosis for this admission?: Yes Plan: Supplemental oxygen as needed (3) Acute kidney injury superimposed on chronic kidney disease Is this a current diagnosis for this admission?: Yes (4) Acute on chronic respiratory failure Qualifiers: Respiratory failure complication: hypoxia Qualified Code(s): J96.21 - Acute and chronic respiratory failure with hypoxia Plan: Continue supplemental oxygen suspect this will be necessary upon discharge (5) Chronic diastolic heart failure Is this a current diagnosis for this admission?: Yes
--- NOTE | 2017-10-10 10:22 | PDOC PROGRESS REPORT ---
Subjective Progress Note for:: 10/10/17 Subjective:: Patient without complaints Physical Exam Vital Signs: Temp Pulse Resp BP Pulse Ox 97.9 F 55 L 17 152/78 H 100 10/10/17 04:00 10/10/17 04:00 10/10/17 04:00 10/10/17 04:00 10/10/17 04:30 Pulse Oximeter Continuous Start: 10/07/17 03: 16 Freq: RTQ4 Status: Active Document 10/10/17 04:30 EAL (Rec: 10/10/17 05:30 EAL [email or web address]) Pulse Oximetry Assessment Oxygen Saturation (92-100) 100 Oxygen Flow Rate (L/min) 2.5 Oxygen Delivery Method Nasal Cannula Equipment Usage Equipment in Use Continuous SpO2 Machine # 9 Intake & Output 10/09/17 10/10/17 10/11/17 06:59 06:59 06:59 Intake Total 4549 3110 Output Total 850 Balance 3699 3110 Weight 106.4 kg 109.9 kg General appearance: PRESENT: no acute distress, cooperative, disheveled, morbidly obese, well-developed Head exam: PRESENT: atraumatic, normocephalic Eye exam: PRESENT: conjunctiva pale, EOMI Mouth exam: PRESENT: dry mucosa, neck supple, tongue midline Teeth exam: PRESENT: edentulous Neck exam: ABSENT: carotid bruit, JVD, lymphadenopathy, thyromegaly Respiratory exam: PRESENT: decreased breath sounds, prolonged expiratory phas, rales, rhonchi, symmetrical, unlabored. ABSENT: accessory muscle use, chest wall tenderness, clear to auscultation brandon, crackles, retraction, stridor, tachypnea Cardiovascular exam: PRESENT: RRR, +S1, +S2. ABSENT: irregular rhythm Pulses: PRESENT: normal radial pulses GI/Abdominal exam: PRESENT: normal bowel sounds, soft. ABSENT: distended, guarding, mass, organolmegaly, rebound, tenderness Extremities exam: ABSENT: calf tenderness, clubbing, joint swelling, pedal edema Musculoskeletal exam: ABSENT: deformity, dislocation, tenderness Neurological exam: PRESENT: alert, awake Psychiatric exam: PRESENT: normal mood Skin exam: PRESENT: dry, warm Results Laboratory Results: 10/08/17 11:35 10/09/17 11:03 10/09/17 11:03 Sodium 140.9 Potassium 3.6 Chloride 103 Carbon Dioxide 23 Anion Gap 15 BUN 65 H Creatinine 2.12 H Est GFR ( Amer) 29 L Est GFR (Non-Af Amer) 24 L Glucose 98 Calcium 9.2 10/08/17 10:25 Clean Catch Midstream Urine Culture - Final 3,000 col/ml 10/07/17 10/07/17 10/07/17 10:36 12:36 16:40 Creatine Kinase 110 Troponin I 0.136 0.088 10/07/17 10/08/17 22:42 05:15 Creatine Kinase Troponin I 0.062 0.041 Impressions: Chest X-Ray 10/07/17 00:35 IMPRESSION: 1. No acute pneumonic process identified. Cardiomegaly. 2. Unchanged chronic bilateral interstitial opacities. Assessment & Plan - Diagnosis (1) Acute dyspnea Plan: Gentle diuresis bronchodilator therapy (2) Acute hypoxemic respiratory failure Is this a current diagnosis for this admission?: Yes Plan: Continue supplemental oxygen (3) Acute kidney injury superimposed on chronic kidney disease Is this a current diagnosis for this admission?: Yes (4) Acute on chronic respiratory failure Qualifiers: Respiratory failure complication: hypoxia Qualified Code(s): J96.21 - Acute and chronic respiratory failure with hypoxia Is this a current diagnosis for this admission?: Yes Plan: failed BiPAP The above patient has failed BiPAP. This patient would benefit from noninvasive mechanical ventilation via the trilogy AVAPS/AE and faster responding AVAPS rates. The trilogy is able to provide a target tidal volume and also adjusting the EPAP pressures to maintain a patent airway as well as an oral backup rate this machine will help improve PaCO2 levels and oxygenation( Refer to PFT's for evidence of obstructive as well as restrictive ventilatory defects). The severity of the patient's condition will lead to future hospitalizations and readmissions as well as life-threatening situations without the use of this device trilogy home vent needed for hypercapnic respiratory failure. Family medical to follow for trilogy set up. (5) Chronic diastolic heart failure Is this a current diagnosis for this admission?: Yes
[2017-10-10] MEDS: FLUTICASONE NASAL SPRAY 50 MCG/SPRY 120 SPRAY/16 GM NAREB SCH (10:24)
[2017-10-10] MEDS: ASPIRIN 325 MG TABLET, ENT COATED PO SCH (10:25)
[2017-10-10] MEDS: FERROUS SULFATE 325 MG TABLET PO SCH ×2 (10:25→17:56)
[2017-10-10] MEDS: TIOTROPIUM BROMIDE DPI 5 CAP/KIT (18 MCG/CAP) IH SCH (10:25)
[2017-10-10] MEDS: GUAIFENESIN 600 MG TABLET.SA PO SCH ×2 (10:25→21:25)
[2017-10-10] MEDS: PREDNISONE 20 MG TABLET PO SCH (10:26)
[2017-10-10] MEDS: GABAPENTIN 400 MG CAPSULE PO SCH ×2 (10:26→21:24)
[2017-10-10] MEDS: FAMOTIDINE 20 MG TABLET PO SCH ×2 (10:26→21:24)
[2017-10-10] MEDS: AMLODIPINE BESYLATE 10 MG TABLET PO SCH (10:26)
[2017-10-10] MEDS: CYANOCOBALAMIN (VITAMIN B-12) 1,000 MCG TABLET PO SCH (10:28)
[2017-10-10] MEDS: CARVEDILOL 12.5 MG TABLET PO SCH ×2 (10:28→22:34)
[2017-10-10] MEDS: HYDRALAZINE HCL 50 MG TABLET PO SCH ×3 (10:29→21:18)
[2017-10-10 11:28] LABS: ANION GAP 15 (5-19); BLOOD UREA NITROGEN 67 mg/dL (7-20); CALCIUM 9.2 mg/dL (8.4-10.2); CARBON DIOXIDE 24 mmol/L (22-30); CHLORIDE 103 mmol/L (98-107); CREATININE RESULT 1.93 mg/dL (0.52-1.25); GLUCOSE 114 mg/dL (75-110); SODIUM 141.5 mmol/L (137-145)
--- NOTE | 2017-10-10 13:52 | PDOC PROGRESS REPORT ---
Subjective Progress Note for:: 10/10/17 Subjective:: 61-year-old female with history of chronic diastolic CHF, mitral regurgitation, CKD stage III, COPD and chronic hypoxic respiratory failure. She presented to emergency room complaining of shortness of breath of several days' duration. She received nebulizer treatment IV Solu-Medrol and magnesium but was still significantly short of breath. She was started on BiPAP. ABG done 10/07/17 revealed a pH of 7.39, PCO2 of 48.3, PaO2 of 80.9, HCO3 28.6 on BiPAP with FiO2 30%. Chest x-ray showed unchanged chronic bilateral interstitial opacities with no acute pneumonic processes noted. The patient was continued on BiPAP, aggressive nebulizer treatment and IV steroids and IV antibiotics. She responded to treatment adequately. Her hospital course was complicated by worsening acute kidney injury, uncontrolled hypertension, and mildly positive cardiac enzymes. Her renal function started to improve, after holding lisinopril, and furosemide. Her BP and troponin improved as well. Subjective: No problems overnight. She has not required BiPAP in over 48 hours. She is feeling stronger and requesting or inquiring about discharge. She is short of breath with minimal activity, though. Physical Exam Vital Signs: Temp Pulse Resp BP Pulse Ox 98.3 F 56 L 18 159/80 H 100 10/10/17 08:04 10/10/17 08:04 10/10/17 08:04 10/10/17 08:04 10/10/17 12:15 Pulse Oximeter Continuous Start: 10/07/17 03: 16 Freq: RTQ4 Status: Active Document 10/10/17 12:15 [facility] (Rec: 10/10/17 13:34 [facility] [email or web address]) Pulse Oximetry Assessment Oxygen Saturation (92-100) 100 Oxygen Flow Rate (L/min) 2.5 Oxygen Delivery Method Nasal Cannula Fraction of Inspired Oxygen (FIO2) 30 Equipment Usage Equipment in Use Continuous SpO2 Machine # 9 Intake & Output 10/09/17 10/10/17 10/11/17 06:59 06:59 06:59 Intake Total 4549 3110 Output Total 850 Balance 3699 3110 Weight 106.4 kg 109.9 kg General appearance: PRESENT: no acute distress, morbidly obese Head exam: PRESENT: atraumatic, normocephalic Eye exam: PRESENT: conjunctiva pink, EOMI, PERRLA. ABSENT: scleral icterus Neck exam: ABSENT: carotid bruit, JVD, lymphadenopathy, thyromegaly Respiratory exam: PRESENT: clear to auscultation brandon. ABSENT: rales, rhonchi, wheezes Cardiovascular exam: PRESENT: RRR. ABSENT: diastolic murmur, rubs, systolic murmur GI/Abdominal exam: PRESENT: normal bowel sounds, soft. ABSENT: distended, guarding, mass, organolmegaly, rebound, tenderness Neurological exam: PRESENT: alert, awake, oriented to person, oriented to place , oriented to time, oriented to situation, CN II-XII grossly intact. ABSENT: motor sensory deficit Psychiatric exam: PRESENT: appropriate affect, normal mood. ABSENT: homicidal ideation, suicidal ideation Skin exam: PRESENT: dry, intact, warm. ABSENT: cyanosis, rash Results Laboratory Results: 10/08/17 11:35 10/10/17 10:58 10/10/17 10:58 Sodium 141.5 Potassium 3.0 L* Chloride 103 Carbon Dioxide 24 Anion Gap 15 BUN 67 H Creatinine 1.93 H Est GFR ( Amer) 32 L Est GFR (Non-Af Amer) 26 L Glucose 114 H Calcium 9.2 10/08/17 10:25 Clean Catch Midstream Urine Culture - Final 3,000 col/ml 10/07/17 10/07/17 10/07/17 10:36 12:36 16:40 Creatine Kinase 110 Troponin I 0.136 0.088 10/07/17 10/08/17 22:42 05:15 Creatine Kinase Troponin I 0.062 0.041 Impressions: Chest X-Ray 10/07/17 00:35 IMPRESSION: 1. No acute pneumonic process identified. Cardiomegaly. 2. Unchanged chronic bilateral interstitial opacities. Assessment & Plan - Diagnosis (1) Acute on chronic respiratory failure Qualifiers: Respiratory failure complication: hypoxia Qualified Code(s): J96.21 - Acute and chronic respiratory failure with hypoxia Is this a current diagnosis for this admission?: Yes Plan: Multifactorial in etiology: Morbid obesity, COPD, and diastolic heart failure. She is no longer requiring BiPAP. She remains on supplemental oxygen at 2-2.5 L via nasal cannula continuous. Her O2 saturations are in the upper 90s. She normally wears 2 L at home. (2) Acute on chronic diastolic CHF (congestive heart failure) Is this a current diagnosis for this admission?: Yes Plan: Currently, she is euvolemic. Furosemide was held due to worsening kidney function/elevated creatinine. Resume home medications upon discharge. (3) COPD exacerbation Is this a current diagnosis for this admission?: Yes Plan: She is an active smoker. Her chest x-ray showed no acute infiltrates. She is dyspneic with minimal activity, although she has improved. Continue nebulized treatments. Continue prednisone 40 mg daily for total of 5 days. Continue levofloxacin and oral total of 5 days. Anticipate discharge tomorrow. (4) Hypertension Qualifiers: Hypertension type: essential hypertension Qualified Code(s): I10 - Essential (primary) hypertension Is this a current diagnosis for this admission?: Yes Plan: BP is suboptimal. It should improve when lisinopril is readmitted. I will add a third dose of hydralazine now. (5) Acute kidney injury superimposed on chronic kidney disease Is this a current diagnosis for this admission?: Yes Plan: Likely due to dehydration and medications. Lisinopril, and furosemide has been held. Her renal function has improved. I will resume them at discharge. (6) Obstructive sleep apnea Is this a current diagnosis for this admission?: Yes Plan: Defer to primary care physician. She is supposed to have an outpatient sleep study rescheduled.
[2017-10-10] MEDS: POTASSIUM CHLORIDE 10 MEQ TABLET.SA PO SCH ×3 (14:28→21:19)
[2017-10-10] MEDS: LEVOFLOXACIN 750 MG TABLET PO SCH (14:29)
[2017-10-10 14:53] LABS: ARTERIAL BLOOD BASE EXCESS -0.6 mmol/L; ARTERIAL BLOOD O2 SATURATION 97.1 % (94-98)
[2017-10-11] MEDS: IPRATROPIUM/ALBUTEROL 0.5-2.5 MG/3 ML AMPUL NEB SCH ×2 (02:19→07:55)
[2017-10-11] MEDS: HEPARIN SOD (PORCINE) 5,000 UNIT/ML 1 ML SYRINGE SUBCUT SCH (06:05)
[2017-10-11] MEDS: HYDRALAZINE HCL 50 MG TABLET PO SCH (06:10)
[2017-10-11 09:17] LABS: ANION GAP 15 (5-19); BLOOD UREA NITROGEN 65 mg/dL (7-20); CALCIUM 9.1 mg/dL (8.4-10.2); CARBON DIOXIDE 19 mmol/L (22-30); CHLORIDE 107 mmol/L (98-107); CREATININE RESULT 1.97 mg/dL (0.52-1.25); GLUCOSE 122 mg/dL (75-110)
[2017-10-11 09:30] LABS: POTASSIUM 4.6 mmol/L (3.6-5.0)
[2017-10-11] MEDS: GABAPENTIN 400 MG CAPSULE PO SCH (10:49)
[2017-10-11] MEDS: PREDNISONE 20 MG TABLET PO SCH (10:49)
[2017-10-11] MEDS: ASPIRIN 325 MG TABLET, ENT COATED PO SCH (10:49)
[2017-10-11] MEDS: CYANOCOBALAMIN (VITAMIN B-12) 1,000 MCG TABLET PO SCH (10:50)
[2017-10-11] MEDS: AMLODIPINE BESYLATE 10 MG TABLET PO SCH (10:50)
[2017-10-11] MEDS: GUAIFENESIN 600 MG TABLET.SA PO SCH (10:50)
[2017-10-11] MEDS: FAMOTIDINE 20 MG TABLET PO SCH (10:50)
[2017-10-11] MEDS: FERROUS SULFATE 325 MG TABLET PO SCH (10:51)
[2017-10-11] MEDS: FLUTICASONE NASAL SPRAY 50 MCG/SPRY 120 SPRAY/16 GM NAREB SCH (10:52)
[2017-10-11] MEDS: CARVEDILOL 12.5 MG TABLET PO SCH (10:53)
--- NOTE | 2017-10-11 10:54 | ST Inp Modified Barium Swallow ---
Medical Diagnosis - Medical Diagnoses Medical Diagnosis Description & ICD-10 Code(s): acute hypoxemic respiratory failure [facility] [place] Date: 10/11/17 - History History Obtained From: Patient, Other - EMR -: Medical - Per EMR: CHF, mitral regurgitation, CKD stage 3, home O2 dependent COPD Medications: Medications Reviewed Allergies: No known allergies - Subjective Current Nutritional Means: PO Current PO Diet: Regular Current Symptoms: Coughing Pain: Patient reports, 0/5 - Objective Assessment: Upright, Left Lateral - Food Trials Food Trials Used: Thin liquids, Pureed, Regular The Patient: Was Able to Self Feed - Assessment Labial Function: Within Normal Limits Lingual Function: Within Normal Limits Mandibular Function: Within Normal Limits Dentition: Partial Laryngeal Function: Throat Clear - wnl, Volitional Swallow - wnl - Pharyngeal Stage Initiation of Pharyngeal Stage: Normal Decreased Laryngeal Elevation: No Reduced Pressure Generation: No Reduced Tongue Base Retraction: No Pre-Swallowing Pooling in Valleculae: None Pre-Swallowing Pooling in Pyriforms: None Reduced Thyro-Hyiod Approximation: No Reduced Epiglottic Excursion: No Reduced Pharyngeal Peristalsis: No Post Swallow Residuals in Valleculae: Mild Post Swallow Residuals in Pyriforms: Mild Pahryngeal Stage Comments: Functional pharyngeal swallow seen. Timely bolus propulsion, mild residue of solids, cleared with second swallow. Patient was asked to drink "like you normally would", very large sips taken with flash penetration noted. - Impression/Summary Laryngeal Penetration: Yes, Flash, during swallow Tracheal Aspiration: no Compensatory Strategies: Reduce sip size, rate of intake for liquids. Patient Presents With: Normal swallow at eval Risk of Aspiration: Minimal Risk of Nutritional Compromise: WNL - Recommendations NPO: no Solid Diet Recommendations: Regular Liquid Diet Recommendations: Thin Regular Diet: Yes Dysphagia Therapy with OPERATING [employer]ICAL TECHNOLOGIST: No Recommended Techniques: Fully Upright During Meal, Small Bites and Sips - Time Total Time: 15 Total Timed Minutes: 15 Charge G Code? - - -: Yes F.LHarvey Impairment Category - Rationale Based On Rationale Based On: [email or web address]. Sivakumar. Tool Results - Swallowing Current G8996: CI 1-19% Impaired Goal G8997: CI 1-19% Impaired Discharge G8998: CI 1-19% Impaired
[2017-10-11] MEDS: TIOTROPIUM BROMIDE DPI 5 CAP/KIT (18 MCG/CAP) IH SCH (11:16)
--- NOTE | 2017-10-11 11:19 | Pulmonary Function Test ---
Pulmonary Function Test Date of Procedure:: 10/10/17 INDICATION:: Dyspnea Referring Provider: Dr. 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 FEF 25-75% 1.98 68% postbronchodilator therapy 2.64 91% Impression: Severe obstructive ventilatory defect with nominal response to bronchodilator therapy. This does not preclude a clinical trial of bronchodilator therapy. Spirometry suggests restrictive ventilatory defect which cannot be diagnosed on spirometry alone if clinically indicated suggest complete pulmonary function testing
[2017-10-11 11:21] VITALS: BP 132/73
--- NOTE | 2017-10-11 15:16 | PDOC DISCHARGE SUMMARY ---
General - Admit/Disc Date/PCP Admission Date/Primary Care Provider: 10/07/17 03:41 Discharge Date: 10/11/17 - Discharge Diagnosis (1) Acute on chronic respiratory failure Is this a current diagnosis for this admission?: Yes (2) Acute on chronic diastolic CHF (congestive heart failure) Is this a current diagnosis for this admission?: Yes (3) COPD exacerbation Is this a current diagnosis for this admission?: Yes (4) Hypertension Is this a current diagnosis for this admission?: Yes (5) Acute kidney injury superimposed on chronic kidney disease Is this a current diagnosis for this admission?: Yes (6) Obstructive sleep apnea Is this a current diagnosis for this admission?: Yes - Additional Information Resuscitation Status: Full Code Discharge Diet: Cardiac, Diabetic Discharge Activity: Activity As Tolerated, Balance Activity w/Rest, Weigh Daily Home Medications: Albuterol Sulfate [Proair HFA Inhalation Aerosol 8.5 gm MDI] 2 puff IH Q6HP PRN 07/22/17 Amlodipine Besylate [Norvasc 10 mg Tablet] 10 mg PO DAILY 07/22/17 Aspirin [Ecotrin 81 mg EC Tablet] 81 mg PO DAILY 07/22/17 Budesonide/Formoterol Fumarate [Symbicort HFA 160-4.5 mcg Inhaler 6 gm] 2 puff IH Q12 07/22/17 Cyanocobalamin (Vitamin B-12) [Vitamin B-12 100 mcg Tablet] 100 mcg PO DAILY 01/06 Ferrous Sulfate [Feosol 325 mg Tablet] 325 mg PO BID 07/22/17 Fluticasone Propionate [Flonase Nasal [place] 50 Mcg/[place] 16 gm] 2 sprays NASL DAILY 07/22/17 Hydralazine HCl [Apresoline 50 mg Tablet] 100 mg PO Q12 07/22/17 Tiotropium Struthers [Spiriva Handihaler 5 Cap/Kit (18 Mcg/Cap)] 1 cap IN DAILY Tramadol HCl [Ultram 50 mg Tablet] 50 mg PO Q12HP PRN 07/22/17 Furosemide [Lasix 40 mg Tablet] 40 mg PO BID #0 07/28/17 Carvedilol [Coreg 12.5 mg Tablet] 12.5 mg PO Q12@1100,2300 #60 tablet 10/11/17 Gabapentin [Neurontin 400 mg Capsule] 400 mg PO Q12 capsule 10/11/17 Guaifenesin [Mucinex Sr 600 mg Tablet.sa] 600 mg PO Q12 tablet.sa 10/11/17 Ipratropium/Albuterol Sulfate [Duoneb 3 ml Ampul] 3 ml NEB RTQ6 PRN #120 vial.neb 10/11/17 Prednisone [Deltasone 20 mg Tablet] 40 mg PO DAILY 3 Days #6 tablet 10/11/17 History of Present Illness History of Present Illness: BOOM TODD is a 61 year old female with a history of chronic diastolic CHF, mitral regurgitation, CKD stage III, COPD and chronic hypoxic respiratory failure. She presented to emergency room complaining of shortness of breath of several days' duration. She is on oxygen at 2 L via nasal cannula continuously at home. Despite her poor lung function, she continues to smoke cigarettes. She was actually smoking cigarettes when her shortness of breath began. She also ran out of her albuterol approximately 24 hours prior to admission. Hospital Course Hospital Course: She received nebulizer treatment IV Solu-Medrol and magnesium but was still significantly short of breath. She was started on BiPAP. ABG done 10/07/17 revealed a pH of 7.39, PCO2 of 48.3, PaO2 of 80.9, HCO3 28.6 on BiPAP with FiO2 30%. Chest x-ray showed unchanged chronic bilateral interstitial opacities with no acute pneumonic processes noted. The patient was continued on BiPAP, aggressive nebulizer treatment and IV steroids and IV antibiotics. She responded to treatment adequately. Her hospital course was complicated by worsening acute kidney injury, uncontrolled hypertension, and mildly positive cardiac enzymes. Her renal function started to improve, after holding lisinopril, and furosemide. Her BP and troponin improved as well. Prior to discharge, she underwent a modified barium swallow. Ultimately speech therapy recommended a regular diet with thin liquids. She is to sit fully upright during meals, take small bites and small sips. Pulmonary function tests were also done. Her FEV/FVC 67%. It showed a severe obstructive ventilatory defect with nominal response to bronchodilator therapy. Physical Exam Vital Signs: Temp Pulse Resp BP Pulse Ox 97.8 F 59 L 16 132/73 H 99 10/11/17 11:20 10/11/17 11:20 10/11/17 11:20 10/11/17 11:20 10/11/17 11:20 Pulse Oximeter Continuous Start: 10/07/17 03: 16 Freq: RTQ4 Status: Discharge Document 10/11/17 13:31 NSC (Rec: 10/11/17 13:31 NSC [email or web address]) Pulse Oximetry Assessment Equipment Usage Equipment Discontinued Continuous SpO2 Machine # N 9 Intake & Output 10/10/17 10/11/17 10/12/17 06:59 06:59 06:59 Intake Total 3110 2645 Balance 3110 2645 Weight 109.9 kg 114.2 kg General appearance: PRESENT: no acute distress, cooperative, obese Head exam: PRESENT: atraumatic, normocephalic Respiratory exam: PRESENT: clear to auscultation brandon. ABSENT: rales, rhonchi, wheezes Cardiovascular exam: PRESENT: RRR. ABSENT: diastolic murmur, rubs, systolic murmur GI/Abdominal exam: PRESENT: normal bowel sounds, soft. ABSENT: distended, guarding, mass, organolmegaly, rebound, tenderness Neurological exam: PRESENT: alert, awake, oriented to person, oriented to place , oriented to time, oriented to situation, CN II-XII grossly intact. ABSENT: motor sensory deficit Psychiatric exam: PRESENT: appropriate affect, normal mood. ABSENT: homicidal ideation, suicidal ideation Skin exam: PRESENT: dry, intact, warm. ABSENT: cyanosis, rash Results Laboratory Results: 10/08/17 11:35 10/11/17 08:45 10/11/17 08:45 Sodium 141.0 Potassium 4.6 D Chloride 107 Carbon Dioxide 19 L Anion Gap 15 BUN 65 H Creatinine 1.97 H Est GFR ( Amer) 31 L Est GFR (Non-Af Amer) 26 L Glucose 122 H Calcium 9.1 10/07/17 10/07/17 10/07/17 10:36 12:36 16:40 Creatine Kinase 110 Troponin I 0.136 0.088 10/07/17 10/08/17 22:42 05:15 Creatine Kinase Troponin I 0.062 0.041 Impressions: Chest X-Ray 10/07/17 00:35 IMPRESSION: 1. No acute pneumonic process identified. Cardiomegaly. 2. Unchanged chronic bilateral interstitial opacities. Qualifiers PATEINT BEING DISCHARGED WITH ANY OF THE FOLLOWING DIAGNOSIS?: No Plan Discharge Plan: Resume lisinopril once renal function is stable. Time Spent: Greater than 30 Minutes - 40 minutes
--- NOTE | 2017-10-13 13:15 | PDOC PROGRESS REPORT ---
Subjective Progress Note for:: 10/11/17 - Acute on chronic respiratory failure Subjective:: Patient without complaints,wants to go home soon Physical Exam Vital Signs: Temp Pulse Resp BP Pulse Ox 97.8 F 59 L 16 152/72 H 99 10/11/17 07:31 10/11/17 07:55 10/11/17 07:55 10/11/17 07:31 10/11/17 07:55 Pulse Oximeter Continuous Start: 10/07/17 03: 16 Freq: RTQ4 Status: Active Document 10/11/17 07:55 [facility] (Rec: 10/11/17 08:05 [facility] [email or web address]) Pulse Oximetry Assessment Oxygen Saturation (92-100) 99 Oxygen Flow Rate (L/min) 2 Oxygen Delivery Method Nasal Cannula Fraction of Inspired Oxygen (FIO2) 28 Equipment Usage Equipment in Use Continuous SpO2 Machine # N 9 Intake & Output 10/10/17 10/11/17 10/12/17 06:59 06:59 06:59 Intake Total 3110 2645 Balance 3110 2645 Weight 109.9 kg 114.2 kg General appearance: PRESENT: no acute distress, cooperative, disheveled, obese, well-developed Head exam: PRESENT: atraumatic, normocephalic Eye exam: PRESENT: conjunctiva pale, EOMI Mouth exam: PRESENT: dry mucosa, neck supple, tongue midline Teeth exam: PRESENT: edentulous Neck exam: ABSENT: carotid bruit, JVD, lymphadenopathy, thyromegaly Respiratory exam: PRESENT: decreased breath sounds, prolonged expiratory phas, rhonchi, symmetrical, unlabored, wheezes. ABSENT: accessory muscle use, chest wall tenderness, clear to auscultation brandon, crackles, rales, retraction, stridor , tachypnea Cardiovascular exam: PRESENT: RRR, +S1, +S2. ABSENT: clicks, gallop, irregular rhythm, rubs Pulses: PRESENT: normal radial pulses GI/Abdominal exam: PRESENT: normal bowel sounds, soft. ABSENT: distended, guarding, mass, organolmegaly, rebound, tenderness Extremities exam: ABSENT: calf tenderness, clubbing, joint swelling, pedal edema Musculoskeletal exam: ABSENT: dislocation, tenderness Neurological exam: PRESENT: alert, awake Psychiatric exam: PRESENT: normal mood Skin exam: PRESENT: dry, warm Results Laboratory Results: 10/08/17 11:35 10/11/17 08:45 10/10/17 10/10/17 10/11/17 10:58 14:36 08:45 Carbonic Acid 1.18 HCO3/H2CO3 Ratio 20:1 ABG pH 7.41 ABG pCO2 39.1 ABG pO2 91.5 ABG HCO3 24.0 ABG O2 Saturation 97.1 ABG Base Excess -0.6 FiO2 2L Sodium 141.5 141.0 Potassium 3.0 L* 4.6 D Chloride 103 107 Carbon Dioxide 24 19 L Anion Gap 15 15 BUN 67 H 65 H Creatinine 1.93 H 1.97 H Est GFR ( Amer) 32 L 31 L Est GFR (Non-Af Amer) 26 L 26 L Glucose 114 H 122 H Calcium 9.2 9.1 10/07/17 10/07/17 10/07/17 10:36 12:36 16:40 Creatine Kinase 110 Troponin I 0.136 0.088 10/07/17 10/08/17 22:42 05:15 Creatine Kinase Troponin I 0.062 0.041 Impressions: Chest X-Ray 10/07/17 00:35 IMPRESSION: 1. No acute pneumonic process identified. Cardiomegaly. 2. Unchanged chronic bilateral interstitial opacities. Assessment & Plan - Diagnosis (1) Acute dyspnea Is this a current diagnosis for this admission?: Yes Plan: Resolved (2) Acute hypoxemic respiratory failure Is this a current diagnosis for this admission?: Yes Plan: Suspect hypoxemia will be chronic will need supplemental oxygen at home (3) Acute kidney injury superimposed on chronic kidney disease Is this a current diagnosis for this admission?: Yes (4) Acute on chronic respiratory failure Qualifiers: Respiratory failure complication: hypoxia Qualified Code(s): J96.21 - Acute and chronic respiratory failure with hypoxia Is this a current diagnosis for this admission?: Yes Plan: failed BiPAP The above patient has failed BiPAP. This patient would benefit from noninvasive mechanical ventilation via the trilogy AVAPS/AE and faster responding AVAPS rates. The trilogy is able to provide a target tidal volume and also adjusting the EPAP pressures to maintain a patent airway as well as an oral backup rate this machine will help improve PaCO2 levels and oxygenation( Refer to PFT's for evidence of obstructive as well as restrictive ventilatory defects). The severity of the patient's condition will lead to future hospitalizations and readmissions as well as life-threatening situations without the use of this device trilogy home vent needed for hypercapnic respiratory failure. Family medical to follow for trilogy set up. (5) Chronic diastolic heart failure Is this a current diagnosis for this admission?: Yes
--- NOTE | 2017-10-17 09:17 | RADIOLOGY REPORT (SQ) ---
EXAM DESCRIPTION: COOKIE SWALLOW COMPLETED DATE/TIME: 10/11/2017 9:11 am REASON FOR STUDY: dysphagiaunspecified R 13.10 food in pharynx causing other injury, sequela T17.228 S COMPARISON: None TECHNIQUE: Videofluoroscopic swallowing examination was performed in conjunction with speech patholo gy. Videofluoroscopic imaging was obtained and reviewed and these are the findings: RADIATION DOSE: Total fluoroscopy time: 1 minutes 2 seconds 1 image saved to PACS. LIMITATIONS: None FINDINGS: The patient was brought into the fluoro room and placed upright on a modified barium swall ow chair. The patient was then given multiple consistencies mixed with barium to swallow under live fluoroscopic video guidance. According to the Speech Pathologist there was laryngeal penetration wit h thin liquid consistencies. No other laryngeal penetration and no tracheal aspiration. Normal oral and pharyngeal transit time was observed. No significant post swallow residual was seen. Please se e speech pathology report for further details and recommendations. IMPRESSION: LARYNGEAL PENETRATION WITH THIN LIQUID. NO ASPIRATIONPLEASE SEE SPEECH PATHOLOGIST REPO RT FOR OTHER FINDINGS AND RECOMMENDATIONS. COMMENT: Quality ID [id number]: Final reports for procedures using fluoroscopy that document radiation exp osure indices, or exposure time and number of fluorographic images (if radiation exposure indices are not available) TECHNICAL DOCUMENTATION: JOB ID: [id number] [employer]- All Rights Reserved
== END 2017-10-11 12:57 | disposition home or self-care (01) | DRG 189 ==
LOC: ER 00:03 → EH 03:41 → 3N 06:42
PROVIDERS: ADMIT Family Medicine; ATTEND Family Medicine
PROC: 5A09357 Assistance with Respiratory Ventilation, Less than 24 Consecutive Hours, Continuous Positive Airway Pressure (ICD-10-PCS; principal; 2017-10-07)
DX: J96.21 Acute and chronic respiratory failure with hypoxia (principal); I50.33 Acute on chronic diastolic (congestive) heart failure; I13.0 Hypertensive heart and chronic kidney disease with heart failure and stage 1 through stage 4 chronic kidney disease, or unspecified chronic kidney disease; N17.9 Acute kidney failure, unspecified; J44.1 Chronic obstructive pulmonary disease with (acute) exacerbation; E66.9 Obesity, unspecified; G47.33 Obstructive sleep apnea (adult) (pediatric); I25.10 Atherosclerotic heart disease of native coronary artery without angina pectoris; E78.5 Hyperlipidemia, unspecified; Z68.38 Body mass index [BMI] 38.0-38.9, adult; M10.9 Gout, unspecified; N18.3 Chronic kidney disease, stage 3 (moderate); Z79.82 Long term (current) use of aspirin; Z79.899 Other long term (current) drug therapy; F17.210 Nicotine dependence, cigarettes, uncomplicated; Z99.81 Dependence on supplemental oxygen
CPT/HCPCS: 36415; 36600; 71010; 74230; 80048; 80053; 81001; 82140; 82550; 82553; 82803; 83735; 84439; 84443; 84481; 84484; 85025; 85027; 87040; 87077; 87086; 90686; 93005; 93010; 94060; 94640; 94660; 94762; 94799; 96365; 96375; 99285; G8978-GP; G8996-GN; G8997-GN; G8998-GN; J0360; J0456; J0692; J0696; J1644; J1940; J2930; J3475; J3490; J7030; J7512; J7620

== ENCOUNTER 2017-10-30 12:22 | Emergency (ER) | payer OTHER, MEDICARE, MEDICAID ==
[2017-10-30] MEDS ORDERED: IPRATROPIUM/ALBUTEROL 0.5-2.5 MG/3 ML AMPUL NEB ONE ×2 (12:39)
[2017-10-30] MEDS ORDERED: PREDNISONE 20 MG TABLET PO ONE (12:39)
[2017-10-30 12:49] LABS: ABSOLUTE BASOPHILS # (AUTO) 0.1 10^3/uL (0.0-0.2); ABSOLUTE EOSINOPHILS # (AUTO) 0.3 10^3/uL (0.0-0.6); ABSOLUTE LYMPHOCYTES (AUTO) 2.1 10^3/uL (0.5-4.7); ABSOLUTE MONOCYTES (AUTO) 0.4 10^3/uL (0.1-1.4); ABSOLUTE NEUT (AUTO) 4.1 10^3/uL (1.7-8.2); BASOPHILS % (AUTO) 1.5 % (0-2); EOSINOPHILS % (AUTO) 4.5 % (0-6); HEMATOCRIT 29.6 % (36.0-47.0); HGB HCT DIFFERENCE 0.4; LYMPHOCYTES % (AUTO) 30.6 % (13-45); MEAN CORPUSCULAR HEMOGLOBIN 28.5 pg (27.0-33.4); MEAN CORPUSCULAR HGB CONC 33.7 g/dL (32.0-36.0); MEAN CORPUSCULAR VOLUME 85 fl (80-97); MONOCYTES % (AUTO) 5.1 % (3-13); RED CELL DISTRIBUTION WIDTH 15.7 % (11.5-14.0); SEGMENTED NEUTROPHILS % (AUTO) 58.3 % (42-78)
[2017-10-30 12:56] LABS: APPEARANCE,URINE CLEAR; BILIRUBIN,URINE NEGATIVE (NEGATIVE); GLUCOSE, URINE NEGATIVE (NEGATIVE); KETONES,URINE NEGATIVE (NEGATIVE); LEUKOCYTE ESTERASE,URINE SMALL (NEGATIVE); NITRITE,URINE NEGATIVE (NEGATIVE); PROTEIN,URINE 100 mg/dL (NEGATIVE); URINE SPECIFIC GRAVITY 1.005; UROBILINOGEN,URINE NEGATIVE mg/dL (<2.0)
[2017-10-30 13:14] LABS: ALANINE AMINOTRANSFERASE 16 U/L (9-52); ALBUMIN 4.1 g/dL (3.5-5.0); ALKALINE PHOSPHATASE 111 U/L (38-126); ANION GAP 11 (5-19); ASPARTATE AMINO TRANSFERASE 21 U/L (14-36); BILIRUBIN,DIRECT 0.4 mg/dL (0.0-0.4); BILIRUBIN,TOTAL 0.5 mg/dL (0.2-1.3); BLOOD UREA NITROGEN 33 mg/dL (7-20); CALCIUM 9.9 mg/dL (8.4-10.2); CARBON DIOXIDE 28 mmol/L (22-30); CHLORIDE 105 mmol/L (98-107); CREATINE KINASE 57 U/L (30-135); CREATININE RESULT 1.58 mg/dL (0.52-1.25); GLUCOSE 95 mg/dL (75-110); SODIUM 144.3 mmol/L (137-145)
[2017-10-30 13:16] LABS: POTASSIUM 3.8 mmol/L (3.6-5.0)
[2017-10-30 13:25] LABS: CREATINE KINASE MB 1.03 ng/mL (<4.55); TROPONIN I 0.028 ng/mL
--- NOTE | 2017-10-30 13:30 | RADIOLOGY REPORT (SQ) ---
EXAM DESCRIPTION: CHEST SINGLE VIEW COMPLETED DATE/TIME: 10/30/2017 12:56 pm REASON FOR STUDY: dyspnea COMPARISON: Chest films 10/07/2017, 08/02/2017, 04/15/2017, 02/02/2016 EXAM PARAMETERS: NUMBER OF VIEWS: One view. TECHNIQUE: Single frontal radiographic view of the chest acquired. RADIATION DOSE: NA LIMITATIONS: None. FINDINGS: LUNGS AND PLEURA: No opacities, masses or pneumothorax. No pleural effusion. MEDIASTINUM AND HILAR STRUCTURES: No masses. Contour normal. HEART AND VASCULAR STRUCTURES: Stable moderate cardiomegaly. BONES: No acute findings. HARDWARE: None in the chest. OTHER: No other significant finding. IMPRESSION: Stable moderate cardiomegaly TECHNICAL DOCUMENTATION: JOB ID: [id number] [employer]- All Rights Reserved
--- NOTE | 2017-10-30 13:48 | ER Document Report ---
ED General - General Chief Complaint: Shortness Of Breath Stated Complaint: SHORTNESS OF BREATH Time Seen by Provider: 10/30/17 12:26 Mode of Arrival: Medic Information source: Patient Notes: 61 yr old female hx of copd chf presents with complaints of sob, pt denies any productive cough, notes that she has had wheezing over the past day, denies any fevers or chills. denies any swelling in the extremities. TRAVEL OUTSIDE OF THE [place] IN LAST 30 DAYS: No - HPI Onset: Yesterday Onset/Duration: Worse Quality of pain: No pain Severity: Mild Pain Level: Denies Associated symptoms: Nonproductive cough, Shortness of breath Exacerbated by: Walking Relieved by: Denies Similar symptoms previously: Yes Recently seen / treated by doctor: Yes - Related Data Allergies/Adverse Reactions: No Known Allergies Allergy (Verified 05/14/17 12:18) Past Medical History - Social History Smoking Status: Former Smoker Cigarette use (# per day): No Chew tobacco use (# tins/day): No Smoking Education Provided: No Family History: CVA, Hypertension Patient has suicidal ideation: No Patient has homicidal ideation: No - Past Medical History Cardiac Medical History: Reports: Hx Congestive Heart Failure, Hx Coronary Artery Disease, Hx Hypercholesterolemia, Hx Hypertension, Hx Heart Murmur Pulmonary Medical History: Reports: Hx Asthma, Hx Bronchitis, Hx COPD - O2 dependent, Hx Pneumonia Denies: Hx Tuberculosis Renal/ Medical History: Denies: Hx Peritoneal Dialysis GI Medical History: Denies: Hx Cirrhosis, Hx Crohn's Disease, Hx Diverticulitis , Hx Gastroesophageal Reflux Disease, Hx Hepatitis, Hx Hiatal Hernia Musculoskeltal Medical History: Denies Hx Arthritis, Denies Hx Fibromyalgia, Reports Hx Gout Skin Medical History: Denies Hx Eczema, Denies Hx Psoriasis Psychiatric Medical History: Reports: Hx Depression Traumatic Medical History: Denies: Hx Gunshot Wound, Hx Pneumothorax, Hx Traumatic Brain Injury Infectious Medical History: Denies: Hx Hepatitis Past Surgical History: Reports: Hx Section - x 4, Hx Tubal Ligation - Immunizations Hx Diphtheria, Pertussis, Tetanus Vaccination: Yes Hx Pneumococcal Vaccination: 05/06/12 Review of Systems - Review of Systems Notes: REVIEW OF SYSTEMS: CONSTITUTIONAL : Denies fever, chills, or sweats. Denies recent illness. EENT: Denies eye, ear, throat, or mouth pain or symptoms. Denies nasal or sinus congestion or discharge. Denies throat, tongue, or mouth swelling or difficulty swallowing. CARDIOVASCULAR: Denies chest pain. Denies palpitations or racing or irregular heart beat. Denies ankle edema. RESPIRATORY: admits to sob , denies any productivitiy to cough, pt on 2L nc at home GASTROINTESTINAL: Denies abdominal pain or distention. Denies nausea, vomiting , or diarrhea. Denies blood in vomitus, stools, or per rectum. Denies black, tarry stools. Denies constipation. GENITOURINARY: Denies difficulty urinating, painful urination, burning, frequency, blood in urine, or discharge. FEMALE GENITOURINARY: Denies vaginal bleeding, heavy or abnormal periods, irregular periods. Denies vaginal discharge or odor. MUSCULOSKELETAL: Denies back or neck pain or stiffness. Denies joint pain or swelling. SKIN: Denies rash, lesions or sores. HEMATOLOGIC : Denies easy bruising or bleeding. LYMPHATIC: Denies swollen, enlarged glands. NEUROLOGICAL: Denies confusion or altered mental status. Denies passing out or loss of consciousness. Denies dizziness or lightheadedness. Denies headache. Denies weakness or paralysis or loss of use of either side. Denies problems with gait or speech. Denies sensory loss, numbness, or tingling. Denies seizures. PSYCHIATRIC: Denies anxiety or stress. Denies depression, suicidal ideation, or homicidal ideation. ALL OTHER SYSTEMS REVIEWED AND NEGATIVE. PHYSICAL EXAMINATION: GENERAL: Well-appearing, well-nourished and in no acute distress. HEAD: Atraumatic, normocephalic. EYES: Pupils equal round and reactive to light, extraocular movements intact, conjunctiva are normal. ENT: Nares patent, oropharynx clear without exudates. Moist mucous membranes. NECK: Normal range of motion, supple without lymphadenopathy LUNGS: pt noted t ohave wheezing all throughout with intermittnet rhonchi HEART: Regular rate and rhythm without murmurs ABDOMEN: Soft, nontender, nondistended abdomen. No guarding, no rebound. No masses appreciated. Female : deferred Musculoskeletal: Normal range of motion, no pitting or edema. No cyanosis. NEUROLOGICAL: Cranial nerves grossly intact. Normal speech, normal gait. Normal sensory, motor exams PSYCH: Normal mood, normal affect. SKIN: Warm, Dry, normal turgor, no rashes or lesions noted. Dictation was performed using [employer] voice recognition software Physical Exam - Vital signs Vitals: Pulse Ox 100 10/30/17 12:35 Course - Re-evaluation Re-evalutation: 10/30/17 15:46 pts O2 stats were 100% on bsaeline 2 L NC, pt was given 2 further duo nebs and steroids , imaging and labs are noted to have no active chf exacerbation . pt otherwise well appearing , notes significant improvement with breathing treatments. will dc home with very close follow up After performing a Medical Screening Examination, I estimate there is LOW risk for ACUTE CORONARY SYNDROME, PULMONARY EMBOLI, RESPIRATORY FAILURE, SEPSIS OR MENINGITIS, thus I consider the discharge disposition reasonable. I have reevaluated this patient multiple times and no significant life threatening changes are noted. The patient and I have discussed the diagnosis and risks, and we agree with discharging home with close follow-up. We also discussed returning to the Emergency Department immediately if new or worsening symptoms occur. We have discussed the symptoms which are most concerning (e.g., changing or worsening pain, trouble swallowing or breathing, neck stiffness, fever) that necessitate immediate return. - Vital Signs Vital signs: Temp Pulse Resp BP Pulse Ox 98 F 70 17 152/75 H 98 10/30/17 15:00 10/30/17 15:00 10/30/17 15:00 10/30/17 15:00 10/30/17 15:00 - Laboratory Result Diagrams: 10/30/17 12:35 10/30/17 12:35 Laboratory results interpreted by me: 10/30/17 10/30/17 10/30/17 12:35 12:35 12:35 RBC 3.50 L Hgb 10.0 L Hct 29.6 L RDW 15.7 H BUN 33 H Creatinine 1.58 H Est GFR ( Amer) 40 L Est GFR (Non-Af Amer) 33 L Urine Protein 100 H Ur Leukocyte Esterase SMALL H - Diagnostic Test Radiology reviewed: Image reviewed, Reports reviewed Discharge - Discharge Clinical Impression: COPD exacerbation, Chronic diastolic heart failure, Wheezing Dyspnea Qualifiers: Dyspnea type: dyspnea on exertion Qualified Code(s): R06.09 - Other forms of dyspnea Condition: Stable Disposition: HOME, SELF-CARE Instructions: Chronic Obstructive Lung Disease ([facility]) Additional Instructions: Follow up with your physician tomorrow for further care or return to the ED IMMEDIATELY if symptoms worsen or new concerns occur. If you cannot afford to follow up with your primary care physician a list of low cost clinics have been provided at the end of your discharge papers as well. Prescriptions: Ipratropium/Albuterol Sulfate [Duoneb 3 ml Ampul] 3 ml NEB RTQ8 #30 vial.neb Prednisone [Deltasone 20 mg Tablet] 3 tab PO DAILY 5 Days tablet
[2017-10-30 15:26] VITALS: BP 152/75
== END 2017-10-30 15:25 | disposition home or self-care (01) ==
LOC: ER 12:22
DX: J44.1 Chronic obstructive pulmonary disease with (acute) exacerbation (principal); I50.32 Chronic diastolic (congestive) heart failure; R06.2 Wheezing; R06.09 Other forms of dyspnea; I11.0 Hypertensive heart disease with heart failure; I25.10 Atherosclerotic heart disease of native coronary artery without angina pectoris; E78.00 Pure hypercholesterolemia, unspecified; Z98.51 Tubal ligation status
CPT/HCPCS: 94640 ×2; 99285; 36415; 82553; 82550; 85025; 80053; 81001; 84484; 83880; 71010; J7512; J7620

== ENCOUNTER 2017-12-14 10:46 | Inpatient (IN) | payer OTHER, MEDICARE, MEDICAID ==
[2017-12-14] MEDS ORDERED: ALBUTEROL SULFATE 0.083% NEB 2.5 MG/3 ML AMPUL NEB ONE (12:49)
[2017-12-14] MEDS ORDERED: IPRATROPIUM BROMIDE 0.02% NEB 0.5 MG/2.5 ML AMPUL NEB ONE (12:49)
--- NOTE | 2017-12-14 12:50 | ER Document Report ---
ED Medical Screen (RME) - General Mode of Arrival: Ambulatory Information source: Patient TRAVEL OUTSIDE OF THE [place] IN LAST 30 DAYS: No <DANTE POP - Last Filed: 12/14/17 12:47> <PHILLIP CANSECO - Last Filed: 12/19/17 20:50> - General Chief Complaint: Cough Stated Complaint: COUGH Time Seen by Provider: 12/14/17 12:34 Notes: Patient is a 62 year old female with a history of CHF and COPD presents to the emergency department complaining of trouble breathing and a productive cough onset 3 days ago. Patient associated symptoms include headaches and a sore throat. I have greeted and performed a rapid initial assessment of this patient. A comprehensive ED assessment and evaluation of the patient, analysis of test results and completion of the medical decision making process will be conducted by additional ED providers. (DANTE POP) - Related Data Allergies/Adverse Reactions: No Known Allergies Allergy (Verified 12/15/17 07:04) Past Medical History - Social History Chew tobacco use (# tins/day): No Frequency of alcohol use: None Drug Abuse: None - Past Medical History Cardiac Medical History: Reports: Hx Congestive Heart Failure, Hx Coronary Artery Disease, Hx Hypercholesterolemia, Hx Hypertension, Hx Heart Murmur Pulmonary Medical History: Reports: Hx Asthma, Hx Bronchitis, Hx COPD - O2 dependent, Hx Pneumonia Denies: Hx Tuberculosis Renal/ Medical History: Denies: Hx Peritoneal Dialysis GI Medical History: Denies: Hx Cirrhosis, Hx Crohn's Disease, Hx Diverticulitis , Hx Gastroesophageal Reflux Disease, Hx Hepatitis, Hx Hiatal Hernia Musculoskeltal Medical History: Denies Hx Arthritis, Denies Hx Fibromyalgia, Reports Hx Gout Skin Medical History: Denies Hx Eczema, Denies Hx Psoriasis Psychiatric Medical History: Reports: Hx Depression Traumatic Medical History: Denies: Hx Gunshot Wound, Hx Pneumothorax, Hx Traumatic Brain Injury Infectious Medical History: Denies: Hx Hepatitis Past Surgical History: Reports: Hx Section - x 4, Hx Tubal Ligation - Immunizations Hx Diphtheria, Pertussis, Tetanus Vaccination: Yes History of Influenza Vaccine for 08/2017 - 01/2018 Season: No <DANTE POP - Last Filed: 12/14/17 12:47> Physical Exam <DANTE POP - Last Filed: 12/14/17 12:47> <LONG,PHILLIP H - Last Filed: 12/19/17 20:50> - Vital signs Vitals: Temp Pulse Resp BP Pulse Ox 98.9 F 94 28 H 151/77 H 97 12/14/17 11:08 12/14/17 11:08 12/14/17 11:08 12/14/17 11:08 12/14/17 11:08 - Notes Notes: GENERAL: Alert, interacts well. No acute distress. LUNGS: Coarse breath sounds bilaterally. Prolonged end expiratory phase. . HEART: Regular rate and rhythm. No murmurs, gallops, or rubs. ABDOMEN: Soft, non-tender. Non-distended. Bowel sounds present in all 4 quadrants. (DANTE POP) Course - Laboratory Result Diagrams: 12/16/17 04:37 12/16/17 04:37 <PHILLIP CANSECO H - Last Filed: 12/19/17 20:50> - Vital Signs Vital signs: Temp Pulse Resp BP Pulse Ox 98.1 F 78 18 101/83 95 12/17/17 15:51 12/17/17 16:02 12/17/17 16:02 12/17/17 15:51 12/17/17 16:02 - Laboratory Laboratory results interpreted by ok: 12/14/17 12/14/17 12/14/17 17:18 17:18 17:18 WBC 19.7 H RBC 3.71 L Hgb 10.2 L Hct 31.0 L Seg Neutrophils % 84.6 H Lymphocytes % 8.1 L Absolute Neutrophils 16.7 H Carbonic Acid ABG pCO2 ABG pO2 ABG HCO3 ABG Total CO2 ABG O2 Saturation Potassium 3.3 L BUN 48 H Creatinine 1.77 H Est GFR ( Amer) 35 L Est GFR (Non-Af Amer) 29 L Magnesium 1.5 L Alkaline Phosphatase 129 H NT-Pro-B Natriuret Pep 3640 H 12/15/17 01:35 WBC RBC Hgb Hct Seg Neutrophils % Lymphocytes % Absolute Neutrophils Carbonic Acid 1.46 H ABG pCO2 48.4 H ABG pO2 160.6 H ABG HCO3 29.2 H ABG Total CO2 30.7 H ABG O2 Saturation 99.0 H Potassium BUN Creatinine Est GFR ( Amer) Est GFR (Non-Af Amer) Magnesium Alkaline Phosphatase NT-Pro-B Natriuret Pep Doctor's Discharge <DANTE POP - Last Filed: 12/14/17 12:47> <PHILLIP CANSECO - Last Filed: 12/19/17 20:50> - Discharge Clinical Impression: COPD with exacerbation, Acute on chronic diastolic CHF (congestive heart failure), Acute respiratory failure with hypoxia and hypercapnia Pneumonia Qualifiers: Pneumonia type: due to unspecified organism Laterality: right Lung location: lower lobe of lung Qualified Code(s): J18.1 - Lobar pneumonia, unspecified organism Condition: Fair Disposition: ADMITTED INPATIENT Scribe Documentation - Scribe Written by Scribe:: Mayela Mead, 12/14/2017 12:50 acting as scribe for :: Rojelio <DANTE POP - Last Filed: 12/14/17 12:47>
--- NOTE | 2017-12-14 13:46 | ER Document Report ---
ED Respiratory Problem - General Chief Complaint: Cough Stated Complaint: COUGH Time Seen by Provider: 12/14/17 12:34 Mode of Arrival: Ambulatory Information source: Patient TRAVEL OUTSIDE OF THE [place] IN LAST 30 DAYS: No - HPI Patient complains to provider of: Cough, Short of breath Onset: Other - 3 DAYS Duration: Intermittent episodes Initiating Event: No: Out of meds Quality of pain: Other - SORENESS Severity: Mild Context: Hx COPD - ON 02 @ HOME, 2 LITERS/MIN Short of Breath: Mild Chest pain/discomfort: Worse with deep breaths Cough: Productive Sputum amount: Small Sputum color: Yellow Sputum consistency: Mucoid At home treatment: Bronchodilators, Oxygen. denies: CPAP, Inhaled steroids, Oral steroids Associated symptoms: Chills, Cough. denies: Fever Similar symptoms previously: Yes - NOT RECENT Recently seen / treated by doctor: No - Related Data Allergies/Adverse Reactions: No Known Allergies Allergy (Verified 05/14/17 12:18) Past Medical History - General Information source: Patient - Social History Smoking Status: Former Smoker - QUIT 1 WEEK AGO Cigarette use (# per day): No Chew tobacco use (# tins/day): No Frequency of alcohol use: None Drug Abuse: None Lives with: Family Family History: CVA, Hypertension Patient has suicidal ideation: No Patient has homicidal ideation: No - Past Medical History Cardiac Medical History: Reports: Hx Congestive Heart Failure, Hx Coronary Artery Disease, Hx Hypercholesterolemia, Hx Hypertension, Hx Heart Murmur Pulmonary Medical History: Reports: Hx Asthma, Hx Bronchitis, Hx COPD - O2 dependent, Hx Pneumonia Denies: Hx Tuberculosis Endocrine Medical History: Reports: None Renal/ Medical History: Reports: None. Denies: Hx Peritoneal Dialysis Malignancy Medical History: Reports: None GI Medical History: Denies: Hx Cirrhosis, Hx Crohn's Disease, Hx Diverticulitis , Hx Gastroesophageal Reflux Disease, Hx Hepatitis, Hx Hiatal Hernia Musculoskeltal Medical History: Denies Hx Arthritis, Denies Hx Fibromyalgia, Reports Hx Gout Skin Medical History: Denies Hx Eczema, Denies Hx Psoriasis Psychiatric Medical History: Reports: Hx Depression Traumatic Medical History: Denies: Hx Gunshot Wound, Hx Pneumothorax, Hx Traumatic Brain Injury Infectious Medical History: Denies: Hx Hepatitis Past Surgical History: Reports: Hx Section - x 4, Hx Tubal Ligation - Immunizations Hx Diphtheria, Pertussis, Tetanus Vaccination: Yes Hx Pneumococcal Vaccination: 05/06/12 Review of Systems - Review of Systems Constitutional: Chills, Weakness EENT: No symptoms reported Cardiovascular: See HPI Respiratory: See HPI Gastrointestinal: No symptoms reported Genitourinary: No symptoms reported Female Genitourinary: Post menopausal Musculoskeletal: No symptoms reported Skin: No symptoms reported Neurological/Psychological: No symptoms reported Physical Exam - Vital signs Vitals: Temp Pulse Resp BP Pulse Ox 98.9 F 94 28 H 151/77 H 97 12/14/17 11:08 12/14/17 11:08 12/14/17 11:08 12/14/17 11:08 12/14/17 11:08 Interpretation: Hypertensive, Tachypneic. No: Tachycardic, Hypoxic, Febrile - General General appearance: Appears well, Alert In distress: None - HEENT Head: Normocephalic Eyes: Normal Conjunctiva: Normal Ears: Normal Nasal: Normal Mouth/Lips: Normal Mucous membranes: Normal - Respiratory Respiratory status: No respiratory distress Breath sounds: Nonproductive cough, Wheezing - MILD, EXPIRATORY - Cardiovascular Rhythm: Regular Heart sounds: Normal auscultation Murmur: No - Abdominal Inspection: Normal, Obese - Extremities General upper extremity: Normal inspection General lower extremity: Normal inspection. No: Edema - Neurological Neuro grossly intact: Yes Cognition: Normal Orientation: AAOx4 - Psychological Associated symptoms: Normal affect, Normal mood - Skin Skin Temperature: Warm Skin Moisture: Dry Skin Color: Normal Skin Turgor: Elastic Course - Re-evaluation Re-evalutation: 12/14/17 18:51 Subjectively improved. Ambulated with 2 L/min portable O2, sats stayed in the mid to low 90s. Much less wheezing on auscultation. Patient is satisfactory for discharge to home. - Vital Signs Vital signs: Temp Pulse Resp BP Pulse Ox 98.9 F 94 26 H 151/77 H 97 12/14/17 11:08 12/14/17 11:08 12/14/17 12:20 12/14/17 11:08 12/14/17 11:08 - Laboratory Result Diagrams: 12/14/17 17:18 12/14/17 17:18 - Diagnostic Test Radiology reviewed: Image reviewed, Reports reviewed Discharge - Discharge Clinical Impression: COPD with exacerbation Pneumonia Qualifiers: Pneumonia type: due to unspecified organism Laterality: right Lung location: lower lobe of lung Qualified Code(s): J18.1 - Lobar pneumonia, unspecified organism Condition: Stable Disposition: HOME, SELF-CARE Instructions: Pneumonia ([facility]), Chronic Obstructive Lung Disease ([facility]), Inhaled Bronchodilators ([facility]), Rocephin ([facility]), Azithromycin ([facility]), Corticosteroid Medication ([facility]) Additional Instructions: REST, DRINK PLENTY OF FLUIDS. TAKE AZITHROMYCIN DIRECTED, BEGIN WITH FIRST DOSE THIS P.M. TAKE PREDNISONE DIRECTED, BEGIN TOMORROW (MONDAY). CONTINUE ALL OTHER MEDS USUAL. RETURN TO E.R. OR FOLLOW UP WITH YOUR PRIMARY CARE PROVIDER IF YOU GET WORSE, ANY TIME. Prescriptions: Azithromycin [Zithromax 250 mg Tablet] 250 mg PO ASDIR PRN #6 tablet PRN Reason: Prednisone [Deltasone 10 mg Tablet] 10 mg PO ASDIR PRN #21 tablet PRN Reason: Referrals: WENCESLAO PEGUERO DO [Primary Care Provider] - Follow up as needed
--- NOTE | 2017-12-14 13:57 | RADIOLOGY REPORT (SQ) ---
EXAM DESCRIPTION: CHEST PA/LAT COMPLETED DATE/TIME: 12/14/2017 1:46 pm REASON FOR STUDY: sob cough COMPARISON: 10/30/2017, 10/07/2017, and 08/02/2017. EXAM PARAMETERS: NUMBER OF VIEWS: two views TECHNIQUE: Digital Frontal and Lateral radiographic views of the chest acquired. RADIATION DOSE: NA LIMITATIONS: none FINDINGS: LUNGS AND PLEURA: Chronic interstitial changes. Slightly more prominent with subtle retic ulonodular pattern. No focal infiltrate. No pleural effusion. MEDIASTINUM AND HILAR STRUCTURES: No masses or contour abnormalities. HEART AND VASCULAR STRUCTURES: Heart normal size. No evidence for failure. BONES: No acute findings. HARDWARE: None in the chest. OTHER: No other significant finding. IMPRESSION: *CHRONIC INTERSTITIAL CHANGES. SUBTLE RETICULONODULAR PATTERN. THIS COULD BE INDICATIVE OF AN ATYPI MAURICIO INFECTION. TECHNICAL DOCUMENTATION: JOB ID: [id number] [employer]- All Rights Reserved
[2017-12-14 14:01] LABS: A TYPE INFLUENZA AG NEGATIVE (NEGATIVE); B INFLUENZA AG NEGATIVE (NEGATIVE)
--- NOTE | 2017-12-14 15:40 | EKG REPORT ---
SEVERITY:- ABNORMAL ECG - SINUS RHYTHM PROBABLE LEFT ATRIAL ABNORMALITY LVH WITH IVCD AND SECONDARY REPOL ABNRM : Confirmed by: Lauren Wick 14-Dec-2017 15:39:52
[2017-12-14] MEDS ORDERED: LIDOCAINE 1% INJ-PF (10 MG/ML) 30 ML SDV INJ ONE (15:46)
[2017-12-14] MEDS ORDERED: DEXAMETHASONE 4 MG TABLET PO ONE (15:46)
[2017-12-14] MEDS ORDERED: CEFTRIAXONE INJ 1000 MG VIAL IM ONE (15:46)
[2017-12-14 18:43] LABS: ABSOLUTE BASOPHILS # (AUTO) 0.1 10^3/uL (0.0-0.2); ABSOLUTE EOSINOPHILS # (AUTO) 0.4 10^3/uL (0.0-0.6); ABSOLUTE LYMPHOCYTES (AUTO) 1.6 10^3/uL (0.5-4.7); ABSOLUTE MONOCYTES (AUTO) 0.9 10^3/uL (0.1-1.4); ABSOLUTE NEUT (AUTO) 16.7 10^3/uL (1.7-8.2); BASOPHILS % (AUTO) 0.4 % (0-2); EOSINOPHILS % (AUTO) 2.3 % (0-6); HEMOGLOBIN 10.2 g/dL (12.0-15.5); LYMPHOCYTES % (AUTO) 8.1 % (13-45); MEAN CORPUSCULAR HEMOGLOBIN 27.6 pg (27.0-33.4); MEAN CORPUSCULAR VOLUME 83 fl (80-97); MONOCYTES % (AUTO) 4.6 % (3-13); PLATELET COUNT 294 10^3/uL (150-450); RED BLOOD COUNT 3.71 10^6/uL (3.72-5.28); RED CELL DISTRIBUTION WIDTH 13.9 % (11.5-14.0); SEGMENTED NEUTROPHILS % (AUTO) 84.6 % (42-78); TOTAL CELLS COUNTED % (AUTO) 100 %; WHITE BLOOD COUNT 19.7 10^3/uL (4.0-10.5)
[2017-12-14 19:02] LABS: ALANINE AMINOTRANSFERASE 26 U/L (9-52); ALBUMIN 3.8 g/dL (3.5-5.0); ALKALINE PHOSPHATASE 129 U/L (38-126); ANION GAP 11 (5-19); ASPARTATE AMINO TRANSFERASE 36 U/L (14-36); BILIRUBIN,DIRECT 0.3 mg/dL (0.0-0.4); BILIRUBIN,TOTAL 0.3 mg/dL (0.2-1.3); BLOOD UREA NITROGEN 48 mg/dL (7-20); CALCIUM 10.2 mg/dL (8.4-10.2); CARBON DIOXIDE 29 mmol/L (22-30); CHLORIDE 103 mmol/L (98-107); GLUCOSE 105 mg/dL (75-110); MAGNESIUM 1.5 mg/dL (1.6-2.3); POTASSIUM 3.3 mmol/L (3.6-5.0); SODIUM 143.2 mmol/L (137-145)
[2017-12-14] MEDS ORDERED: AZITHROMYCIN 250 MG TABLET PO ONE (19:25)
[2017-12-14] MEDS ORDERED: ASPIRIN 81 MG TABLET, CHEWABLE PO ONE (19:44)
[2017-12-15] MEDS ORDERED: ALBUTEROL SULFATE 0.083% NEB 2.5 MG/3 ML AMPUL NEB ONE ×2 (00:04→02:37)
[2017-12-15 01:57] LABS: ARTERIAL BLOOD BASE EXCESS 3.6 mmol/L; ARTERIAL BLOOD H2CO3 1.46 mmol/L (1.05-1.35); ARTERIAL BLOOD HCO3 29.2 mmol/L (20-26); ARTERIAL BLOOD PCO2 48.4 mmHg (35-45); ARTERIAL BLOOD PO2 160.6 mmHg (80-100); ARTERIAL BLOOD TOTAL CO2 30.7 mmol/L (21-25)
[2017-12-15 01:58] LABS: ARTERIAL BLOOD FIO2 45%
[2017-12-15] MEDS ORDERED: FUROSEMIDE INJ/PF 40 MG/4 ML SDV IV ONE (02:37)
--- NOTE | 2017-12-15 07:40 | EKG REPORT ---
SEVERITY:- ABNORMAL ECG - SINUS TACHYCARDIA VENTRICULAR PREMATURE COMPLEX LVH WITH IVCD AND SECONDARY REPOL ABNRM : Confirmed by: Leana Chavez MD 15-Dec-2017 07:39:41
[2017-12-15] MEDS ORDERED: ONDANSETRON HCL INJ/PF 4 MG/2 ML SDV IV PRN (09:17)
[2017-12-15] MEDS ORDERED: ACETAMINOPHEN 325 MG TABLET PO PRN (09:17)
--- NOTE | 2017-12-15 09:39 | PDOC H&P ---
History of Present Illness Admission Date/PCP: 12/15/17 04:39 WENCESLAO PEGUERO DO Patient complains of: Shortness of breath History of Present Illness: BOOM TODD is a 62 year old female presents to the hospital with complaint of shortness of breath. Patient states that she has been short of breath for the last 3 days. Patient states she has had no chest pain no nausea vomiting or fever no arm or neck numbness or tingling. Patient states that occasionally she does cough up whitish colored phlegm. Patient states that she also has heard herself wheeze. Patient reports that the last time she was admitted she had tried to stop smoking but was not successful. Past Medical History Cardiac Medical History: Reports: Congestive Heart Failure, Coronary Artery Disease, Hyperlipidema, Hypertension, Heart Murmur Pulmonary Medical History: Reports: Asthma, Bronchitis, Chronic Obstructive Pulmonary Disease (COPD) - O2 dependent, Pneumonia Denies: Tuberculosis Endocrine Medical History: Reports: None Renal/ Medical History: Reports: None Malignancy Medical History: Reports: None GI Medical History: Denies: Cirrhosis, Crohn's Disease, Diverticulitis, Gastroesophageal Reflux Disease, Hepatitis, Hiatal Hernia Musculoskeltal Medical History: Reports: Gout Denies: Arthritis, Fibromyalgia Skin Medical History: Denies: Eczema, Psoriasis Psychiatric Medical History: Reports: Depression Traumatic Medical History: Denies: Gunshot Wound, Pneumothorax, Traumatic Brain Injury Hematology: Denies: Hemophilia, Sickle Cell Disease, Bleeding Tendencies Past Surgical History Past Surgical History: Reports: Section - x 4, Tubal Ligation Social History Lives with: Family Smoking Status: Former Smoker - QUIT 1 WEEK AGO Frequency of Alcohol Use: None Hx Recreational Drug Use: No Drugs: None Hx Prescription Drug Abuse: No - Advance Directive Resuscitation Status: Full Code Family History Family History: CVA, Hypertension Parental Family History Reviewed: Yes Children Family History Reviewed: Yes Sibling(s) Family History Reviewed.: Yes Medication/Allergy Allergies/Adverse Reactions: No Known Allergies Allergy (Verified 12/15/17 07:04) Review of Systems Constitutional: PRESENT: weakness Eyes: ABSENT: visual disturbances Ears: ABSENT: hearing changes Cardiovascular: ABSENT: chest pain, dyspnea on exertion, edema, orthropnea, palpitations Respiratory: PRESENT: cough, dyspnea, sputum Gastrointestinal: ABSENT: abdominal pain, constipation, diarrhea, hematemesis, hematochezia, nausea, vomiting Genitourinary: ABSENT: dysuria, hematuria Musculoskeletal: ABSENT: joint swelling Integumentary: ABSENT: rash, wounds Neurological: ABSENT: abnormal gait, abnormal speech, confusion, dizziness, focal weakness, syncope Psychiatric: ABSENT: anxiety, depression, homidical ideation, suicidal ideation Endocrine: ABSENT: cold intolerance, heat intolerance, polydipsia, polyuria Hematologic/Lymphatic: ABSENT: easy bleeding, easy bruising Physical Exam Vital Signs: Temp Pulse Resp BP Pulse Ox 97.9 F 94 17 146/83 H 94 12/15/17 03:00 12/14/17 11:08 12/15/17 08:01 12/15/17 08:01 12/15/17 08:01 General appearance: PRESENT: no acute distress, well-developed, well-nourished Head exam: PRESENT: atraumatic, normocephalic Eye exam: PRESENT: conjunctiva pink, EOMI. ABSENT: scleral icterus Ear exam: PRESENT: normal external ear exam Mouth exam: PRESENT: moist, tongue midline Neck exam: ABSENT: carotid bruit, JVD, lymphadenopathy, thyromegaly Respiratory exam: PRESENT: accessory muscle use, prolonged expiratory phas, rhonchi, wheezes Cardiovascular exam: PRESENT: RRR. ABSENT: diastolic murmur, rubs, systolic murmur Pulses: PRESENT: normal dorsalis pedis pul Vascular exam: PRESENT: normal capillary refill GI/Abdominal exam: PRESENT: normal bowel sounds, soft. ABSENT: distended, guarding, mass, organolmegaly, rebound, tenderness Rectal exam: PRESENT: deferred Extremities exam: PRESENT: full ROM. ABSENT: calf tenderness, clubbing, pedal edema Neurological exam: PRESENT: alert, awake, oriented to person, oriented to place , oriented to time, oriented to situation, CN II-XII grossly intact. ABSENT: motor sensory deficit Psychiatric exam: PRESENT: appropriate affect, normal mood. ABSENT: homicidal ideation, suicidal ideation Skin exam: PRESENT: dry, intact, warm. ABSENT: cyanosis, rash Results Impressions: Chest X-Ray 12/14/17 12:48 IMPRESSION: *CHRONIC INTERSTITIAL CHANGES. SUBTLE RETICULONODULAR PATTERN. THIS COULD BE INDICATIVE OF AN ATYPICAL INFECTION. Assessment & Plan - Diagnosis (1) Acute respiratory failure with hypoxia and hypercapnia Is this a current diagnosis for this admission?: Yes Plan: Second to COPD exacerbation: We will place patient on steroids, breathing treatments, and Levaquin. Will check CT of chest to make sure there is not any other anatomical reasons for patient to be short of breath. (2) COPD with exacerbation Is this a current diagnosis for this admission?: Yes Plan: We will place on steroids, breathing treatments, and antibiotics. Will order CT of chest to make sure that there is no evidence of pneumonia or lung mass. (3) Hypokalemia Is this a current diagnosis for this admission?: Yes Plan: We will give potassium replacement. BMP in am (4) Acute exacerbation of chronic bronchitis Is this a current diagnosis for this admission?: Yes Plan: Will place patient on steroids, breathing treatments, and Levaquin. (5) Dyspnea Is this a current diagnosis for this admission?: Yes Plan: There is COPD exacerbation: We will place patient on breathing treatments, steroids, and antibiotics. Patient was on BiPAP in the ED however patient does not use BiPAP normally. (6) Moderate to severe pulmonary hypertension Is this a current diagnosis for this admission?: Yes Plan: Supportive care. We will continue patient's home medications (7) Severe obesity (BMI 35.0-39.9) with comorbidity Is this a current diagnosis for this admission?: Yes Plan: Encourage Dietary changes. (8) Hypomagnesemia Is this a current diagnosis for this admission?: Yes Plan: Will give Magnesium replacement. Mg in am. 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 (10) DVT prophylaxis Is this a current diagnosis for this admission?: Yes Plan: SCDs - Time Time Spent: 30 to 50 Minutes Anticipated discharge: Home
[2017-12-15] MEDS ORDERED: MAGNESIUM SULFATE/D5W 1 GM/100 ML RTUPB IV SCH (10:00)
[2017-12-15] MEDS ORDERED: LANSOPRAZOLE 30 MG TAB.RAP.DR PO ONE (10:00)
[2017-12-15] MEDS ORDERED: POTASSIUM CHLORIDE 10 MEQ TABLET.SA PO ONE ×2 (10:00→14:15)
--- NOTE | 2017-12-15 10:26 | RADIOLOGY REPORT (SQ) ---
EXAM DESCRIPTION: CT CHEST WITHOUT COMPLETED DATE/TIME: 12/15/2017 10:10 am REASON FOR STUDY: Concern for Pneumonia COMPARISON: 02/24/2015 TECHNIQUE: CT scan performed of the chest without intravenous contrast. Images reviewed with lung, soft tissue and bone windows. Reconstructed coronal and sagittal MPR images reviewed. All images st ored on PACS. All CT scanners at this facility use dose modulation, iterative reconstruction, and/or weight based d osing when appropriate to reduce radiation dose to as low as reasonably achievable (ALARA). [facility]: Dose Right [facility]: CareDose [facility]: Dose Right [facility]: Teradose 4D [facility]: [employer] RADIATION DOSE: CT Rad equipment meets quality standard of care and radiation dose reduction techniq ues were employed. CTDIvol: 17.7 mGy. DLP: 653 mGy-cm. mGy. LIMITATIONS: Motion. FINDINGS: LUNGS AND PLEURA: Chronic interstitial changes. Patchy areas of ground-glass attenuation in both lungs. 7 mm part solid nodule right lower lobe image 38. Slightly smaller nodule right lowe r lobe image 40. No effusions. HILAR AND MEDIASTINAL STRUCTURES: No identified masses or abnormal nodes. No obvious aneurysm. HEART AND VASCULAR STRUCTURES: Cardiomegaly. No pericardial effusion. UPPER ABDOMEN: No significant findings. Limited exam. THYROID AND OTHER SOFT TISSUES: No masses. No adenopathy. BONES: No significant finding. HARDWARE: None in the chest. OTHER: No other significant findings. IMPRESSION: Chronic CHF. No obvious superimposed pneumonia. Small pulmonary nodules. TECHNICAL DOCUMENTATION: JOB ID: [id number] Quality ID # [id number]: Final reports with documentation of one or more dose reduction techniques (e.g., Au tomated exposure control, adjustment of the mA and/or kV according to patient size, use of iterative reconstruction technique) 2010 [employer]- All Rights Reserved
[2017-12-15] MEDS: LEVOFLOXACIN 500 MG/D5W RTU 500 MG/100 ML RTUPB IV SCH (12:10)
[2017-12-15] MEDS: IPRATROPIUM/ALBUTEROL 0.5-2.5 MG/3 ML AMPUL NEB SCH ×3 (12:19→20:24)
[2017-12-15] MEDS: METHYLPREDNISOLONE INJ 125 MG/2 ML SDV IV SCH ×2 (13:34→21:45)
[2017-12-15] MEDS ORDERED: MAGNESIUM SULFATE/D5W 1 GM/100 ML RTUPB IV ONE (16:00)
[2017-12-15] MEDS ORDERED: TRAMADOL HCL 50 MG TABLET PO PRN (22:35)
[2017-12-16] MEDS: IPRATROPIUM/ALBUTEROL 0.5-2.5 MG/3 ML AMPUL NEB SCH ×6 (00:11→19:55)
[2017-12-16] MEDS: LANSOPRAZOLE 30 MG TAB.RAP.DR PO SCH (05:07)
[2017-12-16] MEDS: METHYLPREDNISOLONE INJ 125 MG/2 ML SDV IV SCH ×3 (05:07→21:04)
[2017-12-16 05:28] LABS: ABSOLUTE LYMPHOCYTES (AUTO) 1.2 10^3/uL (0.5-4.7); ABSOLUTE MONOCYTES (AUTO) 0.2 10^3/uL (0.1-1.4); ABSOLUTE NEUT (AUTO) 13.9 10^3/uL (1.7-8.2); BASOPHILS % (AUTO) 0.1 % (0-2); HEMATOCRIT 29.1 % (36.0-47.0); HEMOGLOBIN 9.5 g/dL (12.0-15.5); LYMPHOCYTES % (AUTO) 8.1 % (13-45); MEAN CORPUSCULAR HEMOGLOBIN 27.8 pg (27.0-33.4); MEAN CORPUSCULAR HGB CONC 32.7 g/dL (32.0-36.0); MEAN CORPUSCULAR VOLUME 85 fl (80-97); MONOCYTES % (AUTO) 1.3 % (3-13); PLATELET COUNT 317 10^3/uL (150-450); RED BLOOD COUNT 3.43 10^6/uL (3.72-5.28); RED CELL DISTRIBUTION WIDTH 13.6 % (11.5-14.0); SEGMENTED NEUTROPHILS % (AUTO) 90.5 % (42-78); TOTAL CELLS COUNTED % (AUTO) 100 %; WHITE BLOOD COUNT 15.4 10^3/uL (4.0-10.5)
[2017-12-16 05:52] LABS: ALANINE AMINOTRANSFERASE 29 U/L (9-52); ALBUMIN 3.7 g/dL (3.5-5.0); ALKALINE PHOSPHATASE 124 U/L (38-126); ANION GAP 14 (5-19); ASPARTATE AMINO TRANSFERASE 22 U/L (14-36); BILIRUBIN,DIRECT 0.1 mg/dL (0.0-0.4); BILIRUBIN,TOTAL 0.1 mg/dL (0.2-1.3); BLOOD UREA NITROGEN 65 mg/dL (7-20); CALCIUM 9.7 mg/dL (8.4-10.2); CARBON DIOXIDE 25 mmol/L (22-30); CHLORIDE 103 mmol/L (98-107); CHOLESTEROL 157.08 mg/dL (0-200); GLUCOSE 154 mg/dL (75-110); POTASSIUM 4.2 mmol/L (3.6-5.0); SODIUM 142.2 mmol/L (137-145); TRIGLYCERIDES 98 mg/dL (<150)
[2017-12-16 06:02] LABS: DIRECT LDL 110 mg/dL (<100)
[2017-12-16] MEDS: LISINOPRIL 5 MG TABLET PO SCH (08:37)
[2017-12-16] MEDS: FERROUS SULFATE 325 MG TABLET PO SCH (08:37)
[2017-12-16] MEDS: HYDRALAZINE HCL 50 MG TABLET PO SCH ×2 (08:37→21:04)
[2017-12-16] MEDS: AMLODIPINE BESYLATE 10 MG TABLET PO SCH (08:38)
[2017-12-16] MEDS: CARVEDILOL 12.5 MG TABLET PO SCH ×2 (08:38→21:03)
[2017-12-16] MEDS: LEVOFLOXACIN 500 MG/D5W RTU 500 MG/100 ML RTUPB IV SCH (08:39)
[2017-12-16] MEDS: ASPIRIN 81 MG TABLET, ENT COATED PO SCH (08:39)
[2017-12-16] MEDS: GABAPENTIN 400 MG CAPSULE PO SCH ×2 (08:39→21:04)
--- NOTE | 2017-12-16 20:37 | PDOC PROGRESS REPORT ---
Subjective Progress Note for:: 12/16/17 Subjective:: Pt states that she is breathing better. Pt states that she is feeling stronger. Reason For Visit: ACUTE RESPIRATORY FAILURE SCEONDARY TO COPD Physical Exam Vital Signs: Temp Pulse Resp BP Pulse Ox 97.8 F 67 18 166/77 H 98 12/16/17 15:40 12/16/17 15:52 12/16/17 15:52 12/16/17 15:40 12/16/17 15:52 Intake & Output 12/15/17 12/16/17 12/17/17 06:59 06:59 06:59 Intake Total 100 1200 Output Total 600 Balance 100 600 Weight 107.5 kg General appearance: PRESENT: no acute distress, well-developed, well-nourished Head exam: PRESENT: atraumatic, normocephalic Eye exam: PRESENT: conjunctiva pink, EOMI. ABSENT: scleral icterus Ear exam: PRESENT: normal external ear exam Mouth exam: PRESENT: moist, tongue midline Neck exam: ABSENT: carotid bruit, JVD, lymphadenopathy, thyromegaly Respiratory exam: PRESENT: accessory muscle use, prolonged expiratory phas, wheezes Cardiovascular exam: PRESENT: RRR. ABSENT: diastolic murmur, rubs, systolic murmur Pulses: PRESENT: normal dorsalis pedis pul Vascular exam: PRESENT: normal capillary refill GI/Abdominal exam: PRESENT: normal bowel sounds, soft. ABSENT: distended, guarding, mass, organolmegaly, rebound, tenderness Rectal exam: PRESENT: deferred Extremities exam: PRESENT: full ROM. ABSENT: calf tenderness, clubbing, pedal edema Musculoskeletal exam: PRESENT: full ROM Neurological exam: PRESENT: alert, awake, oriented to person, oriented to place , oriented to time, oriented to situation, CN II-XII grossly intact. ABSENT: motor sensory deficit Psychiatric exam: PRESENT: appropriate affect, normal mood. ABSENT: homicidal ideation, suicidal ideation Skin exam: PRESENT: dry, intact, warm. ABSENT: cyanosis, rash Results Laboratory Results: 12/16/17 04:37 12/16/17 04:37 12/16/17 12/16/17 04:37 04:37 WBC 15.4 H RBC 3.43 L Hgb 9.5 L Hct 29.1 L MCV 85 MCH 27.8 MCHC 32.7 RDW 13.6 Plt Count 317 Seg Neutrophils % 90.5 H Lymphocytes % 8.1 L Monocytes % 1.3 L Eosinophils % 0.0 Basophils % 0.1 Absolute Neutrophils 13.9 H Absolute Lymphocytes 1.2 Absolute Monocytes 0.2 Absolute Eosinophils 0.0 Absolute Basophils 0.0 Sodium 142.2 Potassium 4.2 Chloride 103 Carbon Dioxide 25 Anion Gap 14 BUN 65 H Creatinine 1.99 H Est GFR ( Amer) 31 L Est GFR (Non-Af Amer) 25 L Glucose 154 H Calcium 9.7 Magnesium 2.0 Total Bilirubin 0.1 L AST 22 ALT 29 Alkaline Phosphatase 124 Total Protein 7.0 Albumin 3.7 Triglycerides 98 Cholesterol 157.08 LDL Cholesterol Direct 110 H VLDL Cholesterol 20.0 HDL Cholesterol 36 L Impressions: Chest X-Ray 12/14/17 12:48 IMPRESSION: *CHRONIC INTERSTITIAL CHANGES. SUBTLE RETICULONODULAR PATTERN. THIS COULD BE INDICATIVE OF AN ATYPICAL INFECTION. Chest CT 12/15/17 00:00 IMPRESSION: Chronic CHF. No obvious superimposed pneumonia. Small pulmonary nodules. Assessment & Plan - Diagnosis (1) Acute respiratory failure with hypoxia and hypercapnia Is this a current diagnosis for this admission?: Yes Plan: Second to COPD exacerbation: Will continue patient on steroids, breathing treatments, and Levaquin. (2) COPD with exacerbation Is this a current diagnosis for this admission?: Yes Plan: Will continue on steroids, breathing treatments, and antibiotics. (3) Hypokalemia Is this a current diagnosis for this admission?: Yes Plan: Resolved. (4) Acute exacerbation of chronic bronchitis Is this a current diagnosis for this admission?: Yes Plan: Will continue patient on steroids, breathing treatments, and Levaquin. (5) Dyspnea Is this a current diagnosis for this admission?: Yes Plan: COPD exacerbation: Will continue place patient on breathing treatments, steroids, and antibiotics. (6) Moderate to severe pulmonary hypertension Is this a current diagnosis for this admission?: Yes Plan: Supportive care. We will continue patient's home medications (7) Severe obesity (BMI 35.0-39.9) with comorbidity Is this a current diagnosis for this admission?: Yes Plan: Encourage Dietary changes. (8) Hypomagnesemia Is this a current diagnosis for this admission?: Yes Plan: Resolved. 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 (10) DVT prophylaxis Is this a current diagnosis for this admission?: Yes Plan: SCDs - Time Time Spent with patient: 15-24 minutes
[2017-12-17] MEDS: IPRATROPIUM/ALBUTEROL 0.5-2.5 MG/3 ML AMPUL NEB SCH ×5 (00:09→16:02)
[2017-12-17] MEDS: LANSOPRAZOLE 30 MG TAB.RAP.DR PO SCH (06:14)
[2017-12-17] MEDS: METHYLPREDNISOLONE INJ 125 MG/2 ML SDV IV SCH ×2 (06:14→14:02)
[2017-12-17] MEDS: FERROUS SULFATE 325 MG TABLET PO SCH (09:17)
[2017-12-17] MEDS: ASPIRIN 81 MG TABLET, ENT COATED PO SCH (09:17)
[2017-12-17] MEDS: CARVEDILOL 12.5 MG TABLET PO SCH (09:18)
[2017-12-17] MEDS: HYDRALAZINE HCL 50 MG TABLET PO SCH (09:18)
[2017-12-17] MEDS: LEVOFLOXACIN 500 MG/D5W RTU 500 MG/100 ML RTUPB IV SCH (09:18)
[2017-12-17] MEDS: AMLODIPINE BESYLATE 10 MG TABLET PO SCH (09:18)
[2017-12-17] MEDS: LISINOPRIL 5 MG TABLET PO SCH (09:18)
[2017-12-17] MEDS: GABAPENTIN 400 MG CAPSULE PO SCH (09:18)
[2017-12-17 15:54] VITALS: BP 101/83
--- NOTE | 2017-12-17 16:11 | PDOC DISCHARGE SUMMARY ---
General - Admit/Disc Date/PCP Admission Date/Primary Care Provider: 12/15/17 04:39 WENCESLAO PEGUERO, Discharge Date: 12/17/17 - Discharge Diagnosis (1) Acute respiratory failure with hypoxia and hypercapnia Is this a current diagnosis for this admission?: Yes Summary: Secondary to COPD exacerbation: Patient was admitted and placed on steroids, breathing treatments and Levaquin. Patient's breathing improved and patient was no longer wheezing therefore patient was transitioned to oral steroids and antibiotics. (2) COPD with exacerbation Is this a current diagnosis for this admission?: Yes Summary: Patient will be discharged home on steroids, doxycycline, and instructed to do breathing treatments 4 times a day for the next 5 days then as needed. (3) Hypokalemia Is this a current diagnosis for this admission?: Yes Summary: Resolved. (4) Acute exacerbation of chronic bronchitis Is this a current diagnosis for this admission?: Yes Summary: Resolving. Patient was placed on steroids, doxycycline, instructed to do breathing treatments 4 times a day for 5 days then as needed. (5) Dyspnea Is this a current diagnosis for this admission?: Yes Summary: Secondary to COPD exacerbation: We will continue with current treatment as mentioned above. (6) Moderate to severe pulmonary hypertension Is this a current diagnosis for this admission?: Yes Summary: Supportive care. (7) Severe obesity (BMI 35.0-39.9) with comorbidity Is this a current diagnosis for this admission?: Yes Summary: Encourage dietary changes. (8) Hypomagnesemia Is this a current diagnosis for this admission?: Yes Summary: Resolved. At time of discharge patient's magnesium was 2.0 (9) Elevated troponin Is this a current diagnosis for this admission?: Yes Summary: NSTEMI type II secondary to respiratory distress: Patient never had complained of chest pain. No additional workup was required. Patient's troponins trended down after patient was hydrated. In addition patient has chronic kidney disease stage III (10) DVT prophylaxis Is this a current diagnosis for this admission?: Yes - Additional Information Resuscitation Status: Full Code Discharge Diet: Cardiac Discharge Activity: Activity As Tolerated Prescriptions: Doxycycline Monohydrate 100 mg PO BID #10 tablet Methylprednisolone [Medrol Dosepack (4 mg/Tab) 21 Tab/Dosepak] 4 mg PO ASDIR PRN #21 tab.ds.pk PRN Reason: Home Medications: Albuterol Sulfate [Albuterol Sulfate 2.5mg/3 mL] 1 vial NEB QID 12/15/17 Albuterol Sulfate [Proair HFA Inhalation Aerosol 8.5 gm MDI] 2 puff IH BID 12/15 Amlodipine Besylate [Norvasc 10 mg Tablet] 10 mg PO DAILY 12/15/17 Aspirin [Aspirin EC] 81 mg PO DAILY 12/15/17 Budesonide/Formoterol Fumarate [Symbicort 160-4.5 Mcg Inhaler] 2 puff IH Q12 Carvedilol [Coreg 12.5 mg Tablet] 12.5 mg PO Q12 12/15/17 Cyanocobalamin (Vitamin B-12) [Vitamin B-12 100 mcg Tablet] 100 mcg PO DAILY Ferrous Sulfate [Iron] 325 mg PO DAILY 12/15/17 Fluticasone Propionate [Flonase Nasal [place] 50 Mcg/[place] 16 gm] 2 sprays NASL DAILY 12/15/17 Furosemide [Lasix 20 mg Tablet] 20 mg PO BID 12/15/17 Gabapentin [Neurontin 400 mg Capsule] 400 mg PO Q12 12/15/17 Hydralazine HCl [Apresoline 50 mg Tablet] 100 mg PO Q12 12/15/17 Lisinopril [Prinivil 5 mg Tablet] 5 mg PO DAILY 12/15/17 Tiotropium [place] [Spiriva Handihaler 18 mcg/dose (30 Dose)] 1 cap IH DAILY Tramadol HCl [Ultram 50 mg Tablet] 50 mg PO Q12HP PRN 12/15/17 Doxycycline Monohydrate 100 mg PO BID #10 tablet 12/17/17 Methylprednisolone [Medrol Dosepack (4 mg/Tab) 21 Tab/Dosepak] 4 mg PO ASDIR PRN #21 tab.ds.pk 12/17/17 History of Present Illness Patient complains of: Shortness of breath History of Present Illness: BOOM TODD is a 62 year old female presents to the hospital with complaint of shortness of breath. Patient states that she has been short of breath for the last 3 days. Patient states she has had no chest pain no nausea vomiting or fever no arm or neck numbness or tingling. Patient states that occasionally she does cough up whitish colored phlegm. Patient states that she also has heard herself wheeze. Patient reports that the last time she was admitted she had tried to stop smoking but was not successful. Hospital Course Hospital Course: 62-year-old female that presents to the hospital with complaint of shortness of breath. Patient was found to have COPD exacerbation. On chest x-ray there was question of possible infiltrate therefore patient underwent CT given the fact that patient had recently been hospitalized not too long ago for COPD exacerbation. CT did not demonstrate any evidence of infiltrate. Patient was placed on steroids, breathing treatments, and Levaquin. Patient's respiratory function improved throughout hospitalization and at time of discharge was not require BiPAP or nasal cannula. Patient was noted to have slightly elevated troponins at time of admission however after patient received hydration patient' s troponins trended downward. Patient never complained of chest pain during hospitalization and at time of admission. Patient has chronic kidney disease stage III renal function has stayed within patient's range when compared to other hospital visits. Patient was instructed to follow-up with PCP and with Dr. Barfield in 1 week. Physical Exam Vital Signs: Temp Pulse Resp BP Pulse Ox 98.1 F 63 20 164/77 H 98 12/17/17 15:50 12/17/17 15:50 12/17/17 15:50 12/17/17 15:50 12/17/17 15:50 Intake & Output 12/16/17 12/17/17 12/18/17 06:59 06:59 06:59 Intake Total 100 1522 673 Output Total 1200 400 Balance 100 322 273 Weight 107.5 kg 110.2 kg General appearance: PRESENT: no acute distress, well-developed, well-nourished Head exam: PRESENT: atraumatic, normocephalic Eye exam: PRESENT: conjunctiva pink, EOMI. ABSENT: scleral icterus Ear exam: PRESENT: normal external ear exam Mouth exam: PRESENT: moist, tongue midline Neck exam: ABSENT: carotid bruit, JVD, lymphadenopathy, thyromegaly Respiratory exam: PRESENT: wheezes - Scant wheeze heard bilateral lower lobes, no accessory muscles used, no prolonged expiratory phase. Patient was not requiring nasal cannula and satting 98% on room air. Cardiovascular exam: PRESENT: RRR. ABSENT: diastolic murmur, rubs, systolic murmur Pulses: PRESENT: normal dorsalis pedis pul Vascular exam: PRESENT: normal capillary refill GI/Abdominal exam: PRESENT: normal bowel sounds, soft. ABSENT: distended, guarding, mass, organolmegaly, rebound, tenderness Rectal exam: PRESENT: deferred Extremities exam: PRESENT: full ROM. ABSENT: calf tenderness, clubbing, pedal edema Neurological exam: PRESENT: alert, awake, oriented to person, oriented to place , oriented to time, oriented to situation, CN II-XII grossly intact. ABSENT: motor sensory deficit Psychiatric exam: PRESENT: appropriate affect, normal mood. ABSENT: homicidal ideation, suicidal ideation Skin exam: PRESENT: dry, intact, warm. ABSENT: cyanosis, rash Results Laboratory Results: 12/16/17 04:37 12/16/17 04:37 Impressions: Chest X-Ray 12/14/17 12:48 IMPRESSION: *CHRONIC INTERSTITIAL CHANGES. SUBTLE RETICULONODULAR PATTERN. THIS COULD BE INDICATIVE OF AN ATYPICAL INFECTION. Chest CT 12/15/17 00:00 IMPRESSION: Chronic CHF. No obvious superimposed pneumonia. Small pulmonary nodules. Plan Time Spent: Greater than 30 Minutes
== END 2017-12-17 17:34 | disposition home or self-care (01) | DRG 190 ==
LOC: ER 10:46 → EH 12-15 04:39 → UNDOADMIN 12-15 04:39 → 3W 12-15 20:20
PROVIDERS: ADMIT Internal Medicine; ATTEND Internal Medicine
PROC: 5A09457 Assistance with Respiratory Ventilation, 24-96 Consecutive Hours, Continuous Positive Airway Pressure (ICD-10-PCS; principal; 2017-12-15)
DX: J44.1 Chronic obstructive pulmonary disease with (acute) exacerbation (principal); J96.01 Acute respiratory failure with hypoxia; J96.02 Acute respiratory failure with hypercapnia; I13.0 Hypertensive heart and chronic kidney disease with heart failure and stage 1 through stage 4 chronic kidney disease, or unspecified chronic kidney disease; E87.6 Hypokalemia; I27.20 Pulmonary hypertension, unspecified; E83.42 Hypomagnesemia; E66.9 Obesity, unspecified; Z68.38 Body mass index [BMI] 38.0-38.9, adult; N18.3 Chronic kidney disease, stage 3 (moderate); R74.8 Abnormal levels of other serum enzymes; I50.9 Heart failure, unspecified; I25.10 Atherosclerotic heart disease of native coronary artery without angina pectoris; F32.9 Major depressive disorder, single episode, unspecified; Z98.51 Tubal ligation status; Z87.891 Personal history of nicotine dependence; Z82.3 Family history of stroke; Z82.49 Family history of ischemic heart disease and other diseases of the circulatory system
CPT/HCPCS: 36415; 36600; 71046; 71250; 80053; 80061; 82803; 83036; 83735; 83880; 84484; 85025; 87040; 87077; 87186; 87804; 93005; 93010; 94640; 94660; 96372; 96374; 99285; G8978-GP; G8979-GP; G8980-GP; G8987-GO; G8988-GO; G8989-GO; J0696; J1940; J1956; J2930; J3475; J3490; J7620

== ENCOUNTER 2018-02-20 10:23 | Emergency (ER) | payer OTHER, MEDICARE, MEDICAID ==
[2018-02-20 11:49] LABS: ABSOLUTE BASOPHILS # (AUTO) 0.1 10^3/uL (0.0-0.2); ABSOLUTE EOSINOPHILS # (AUTO) 0.2 10^3/uL (0.0-0.6); ABSOLUTE LYMPHOCYTES (AUTO) 1.6 10^3/uL (0.5-4.7); ABSOLUTE MONOCYTES (AUTO) 0.7 10^3/uL (0.1-1.4); ABSOLUTE NEUT (AUTO) 9.7 10^3/uL (1.7-8.2); BASOPHILS % (AUTO) 0.8 % (0-2); EOSINOPHILS % (AUTO) 1.7 % (0-6); HEMATOCRIT 32.5 % (36.0-47.0); HEMOGLOBIN 10.7 g/dL (12.0-15.5); LYMPHOCYTES % (AUTO) 12.7 % (13-45); MEAN CORPUSCULAR HEMOGLOBIN 28.3 pg (27.0-33.4); MEAN CORPUSCULAR VOLUME 86 fl (80-97); MONOCYTES % (AUTO) 5.6 % (3-13); PLATELET COUNT 308 10^3/uL (150-450); RED BLOOD COUNT 3.79 10^6/uL (3.72-5.28); RED CELL DISTRIBUTION WIDTH 13.9 % (11.5-14.0); SEGMENTED NEUTROPHILS % (AUTO) 79.2 % (42-78); TOTAL CELLS COUNTED % (AUTO) 100 %; WHITE BLOOD COUNT 12.3 10^3/uL (4.0-10.5)
[2018-02-20 12:15] LABS: ALANINE AMINOTRANSFERASE 19 U/L (9-52); ALBUMIN 3.8 g/dL (3.5-5.0); ALKALINE PHOSPHATASE 95 U/L (38-126); ANION GAP 12 (5-19); ASPARTATE AMINO TRANSFERASE 15 U/L (14-36); BILIRUBIN,DIRECT 0.4 mg/dL (0.0-0.4); BILIRUBIN,TOTAL 0.4 mg/dL (0.2-1.3); BLOOD UREA NITROGEN 50 mg/dL (7-20); CARBON DIOXIDE 26 mmol/L (22-30); CHLORIDE 105 mmol/L (98-107); GLUCOSE 106 mg/dL (75-110); POTASSIUM 3.7 mmol/L (3.6-5.0); TOTAL PROTEIN 7.3 g/dL (6.3-8.2)
--- NOTE | 2018-02-20 12:40 | RADIOLOGY REPORT (SQ) ---
EXAM DESCRIPTION: CHEST 2 VIEWS COMPLETED DATE/TIME: 02/20/2018 12:15 pm REASON FOR STUDY: lower extremity edema COMPARISON: 12/14/2017 EXAM PARAMETERS: NUMBER OF VIEWS: two views TECHNIQUE: Digital Frontal and Lateral radiographic views of the chest acquired. RADIATION DOSE: NA LIMITATIONS: none FINDINGS: LUNGS AND PLEURA: No opacities, masses or pneumothorax. No pleural effusion. MEDIASTINUM AND HILAR STRUCTURES: No masses or contour abnormalities. HEART AND VASCULAR STRUCTURES: Heart normal size. No evidence for failure. BONES: No acute findings. HARDWARE: None in the chest. OTHER: No other significant finding. IMPRESSION: NO ACUTE RADIOGRAPHIC FINDING IN THE CHEST. TECHNICAL DOCUMENTATION: JOB ID: [id number] [employer]- All Rights Reserved Reading location - IP/workstation name: [email or web address]
[2018-02-20] MEDS ORDERED: OXYCODONE-ACETAMINOPHEN 5-325 MG TABLET PO ONE (13:00)
[2018-02-20] MEDS ORDERED: PREDNISONE 20 MG TABLET PO ONE (13:00)
--- NOTE | 2018-02-20 13:00 | ER Document Report ---
ED General - General Chief Complaint: Shoulder Pain Stated Complaint: LEG PAIN Time Seen by Provider: 02/20/18 10:31 Mode of Arrival: Ambulatory Information source: Patient Notes: 62-year-old female presents with history of gout with complaints of shoulder pain knee pain and foot pain bilateral. Patient denies any fevers or chills denies any nausea vomiting or diarrhea. Patient notes that symptoms all started suddenly last night. Patient denies any calf pain denies any shortness of breath difficulty breathing patient is on oxygen for COPD TRAVEL OUTSIDE OF THE [place] IN LAST 30 DAYS: No - HPI Onset: Yesterday Onset/Duration: Sudden Quality of pain: Sharp Severity: Mild Pain Level: 1 Associated symptoms: Body/muscle aches Exacerbated by: Movement Relieved by: Denies Similar symptoms previously: No Recently seen / treated by doctor: No - Related Data Allergies/Adverse Reactions: No Known Allergies Allergy (Verified 12/15/17 07:04) Past Medical History - Social History Smoking Status: Former Smoker Cigarette use (# per day): No Chew tobacco use (# tins/day): No Smoking Education Provided: No Drug Abuse: None Family History: CVA, Hypertension Patient has suicidal ideation: No Patient has homicidal ideation: No - Past Medical History Cardiac Medical History: Reports: Hx Congestive Heart Failure, Hx Coronary Artery Disease, Hx Hypercholesterolemia, Hx Hypertension, Hx Heart Murmur Pulmonary Medical History: Reports: Hx Asthma, Hx Bronchitis, Hx COPD - O2 dependent, Hx Pneumonia Denies: Hx Tuberculosis Renal/ Medical History: Denies: Hx Peritoneal Dialysis GI Medical History: Denies: Hx Cirrhosis, Hx Crohn's Disease, Hx Diverticulitis , Hx Gastroesophageal Reflux Disease, Hx Hepatitis, Hx Hiatal Hernia Musculoskeltal Medical History: Denies Hx Arthritis, Denies Hx Fibromyalgia, Reports Hx Gout Skin Medical History: Denies Hx Eczema, Denies Hx Psoriasis Psychiatric Medical History: Reports: Hx Depression Traumatic Medical History: Denies: Hx Gunshot Wound, Hx Pneumothorax, Hx Traumatic Brain Injury Infectious Medical History: Denies: Hx Hepatitis Past Surgical History: Reports: Hx Section - x 4, Hx Tubal Ligation - Immunizations Hx Diphtheria, Pertussis, Tetanus Vaccination: Yes Hx Pneumococcal Vaccination: 05/06/12 Review of Systems - Review of Systems Notes: REVIEW OF SYSTEMS: CONSTITUTIONAL : Denies fever, chills, or sweats. Denies recent illness. EENT: Denies eye, ear, throat, or mouth pain or symptoms. Denies nasal or sinus congestion or discharge. Denies throat, tongue, or mouth swelling or difficulty swallowing. CARDIOVASCULAR: Denies chest pain. Denies palpitations or racing or irregular heart beat. Denies ankle edema. RESPIRATORY: Denies cough, cold, or chest congestion. Denies shortness of breath, difficulty breathing, or wheezing. GASTROINTESTINAL: Denies abdominal pain or distention. Denies nausea, vomiting , or diarrhea. Denies blood in vomitus, stools, or per rectum. Denies black, tarry stools. Denies constipation. GENITOURINARY: Denies difficulty urinating, painful urination, burning, frequency, blood in urine, or discharge. FEMALE GENITOURINARY: Denies vaginal bleeding, heavy or abnormal periods, irregular periods. Denies vaginal discharge or odor. MUSCULOSKELETAL: admits to shoulder , knee foot pain bilateral SKIN: Denies rash, lesions or sores. HEMATOLOGIC : Denies easy bruising or bleeding. LYMPHATIC: Denies swollen, enlarged glands. NEUROLOGICAL: Denies confusion or altered mental status. Denies passing out or loss of consciousness. Denies dizziness or lightheadedness. Denies headache. Denies weakness or paralysis or loss of use of either side. Denies problems with gait or speech. Denies sensory loss, numbness, or tingling. Denies seizures. PSYCHIATRIC: Denies anxiety or stress. Denies depression, suicidal ideation, or homicidal ideation. ALL OTHER SYSTEMS REVIEWED AND NEGATIVE. PHYSICAL EXAMINATION: GENERAL: Well-appearing, well-nourished and in no acute distress. HEAD: Atraumatic, normocephalic. EYES: Pupils equal round and reactive to light, extraocular movements intact, conjunctiva are normal. ENT: Nares patent, oropharynx clear without exudates. Moist mucous membranes. NECK: Normal range of motion, supple without lymphadenopathy LUNGS: Breath sounds clear to auscultation bilaterally and equal. No wheezes rales or rhonchi. HEART: Regular rate and rhythm without murmurs ABDOMEN: Soft, nontender, nondistended abdomen. No guarding, no rebound. No masses appreciated. Female : deferred Musculoskeletal: tenderness with rom of the bilateral shoulders, bilateral knees and bilateral feet , no erythema NEUROLOGICAL: Cranial nerves grossly intact. Normal speech, normal gait. Normal sensory, motor exams PSYCH: Normal mood, normal affect. SKIN: Warm, Dry, normal turgor, no rashes or lesions noted. Dictation was performed using [employer] voice recognition software Physical Exam - Vital signs Vitals: Resp BP Pulse Ox 25 H 186/89 H 93 02/20/18 10:33 02/20/18 10:33 02/20/18 10:33 Course - Re-evaluation Re-evalutation: 02/20/18 14:32 Patient is noted to have chronic kidney disease, she is on allopurinol and colchicine, I instructed her to stop the colchicine as I believe this may be worsening her kidney function, patient will be treated with prednisone as she does not have a history of diabetes, she will be given pain control and close follow-up with primary care physician Patient has been instructed to stop the allopurinol as well After performing a Medical Screening Examination, I estimate there is LOW risk for RUPTURED ESOPHAGUS, PNEUMOTHORAX, PULMONARY EMBOLISM, ACUTE CORONARY SYNDROME, OR THORACIC AORTIC DISSECTION, thus I consider the discharge disposition reasonable. I have reevaluated this patient multiple times and no significant life threatening changes are noted. The patient and I have discussed the diagnosis and risks, and we agree with discharging home with close follow-up. We also discussed returning to the Emergency Department immediately if new or worsening symptoms occur. We have discussed the symptoms which are most concerning (e.g., bloody sputum, worsening pain or shortness of breath) that necessitate immediate return. - Vital Signs Vital signs: Temp Pulse Resp BP Pulse Ox 98.1 F 22 H 180/89 H 95 02/20/18 13:34 02/20/18 13:33 02/20/18 13:34 02/20/18 13:33 - Laboratory Result Diagrams: 02/20/18 11:40 02/20/18 11:40 Laboratory results interpreted by me: 02/20/18 02/20/18 11:40 11:40 WBC 12.3 H Hgb 10.7 L Hct 32.5 L Seg Neutrophils % 79.2 H Lymphocytes % 12.7 L Absolute Neutrophils 9.7 H BUN 50 H Creatinine 2.72 H Est GFR ( Amer) 21 L Est GFR (Non-Af Amer) 18 L - Diagnostic Test Radiology reviewed: Image reviewed, Reports reviewed Discharge - Discharge Clinical Impression: Gouty arthritis CKD (chronic kidney disease) Qualifiers: Chronic kidney disease stage: stage 3 (moderate) Qualified Code(s): N18.3 - Chronic kidney disease, stage 3 (moderate) Knee pain Qualifiers: Chronicity: acute Laterality: bilateral Qualified Code(s): M25.561 - Pain in right knee; M25.562 - Pain in left knee; M25.562 - Pain in left knee Shoulder pain, bilateral Qualifiers: Chronicity: acute Qualified Code(s): M25.511 - Pain in right shoulder; M25.512 - Pain in left shoulder; M25.512 - Pain in left shoulder Condition: Stable Disposition: HOME, SELF-CARE Instructions: Gout ([facility]), Gout Diet ([facility]) Additional Instructions: Please do not take allopurinol until his symptoms have completely resolved, please do not take the colchicine due to your kidney function Prescriptions: Oxycodone HCl/Acetaminophen [Percocet 5-325 mg Tablet] 1 - 2 tab PO Q4H PRN #15 tablet PRN Reason: Prednisone [Deltasone 20 mg Tablet] 3 tab PO DAILY 5 Days tablet Referrals: WENCESLAO PEGUERO DO [Primary Care Provider] - Follow up tomorrow
[2018-02-20 13:40] VITALS: BP 180/89
== END 2018-02-20 13:39 | disposition home or self-care (01) ==
LOC: ER 10:23
DX: M10.9 Gout, unspecified (principal); N18.3 Chronic kidney disease, stage 3 (moderate); M25.511 Pain in right shoulder; M25.512 Pain in left shoulder; M25.561 Pain in right knee; M25.562 Pain in left knee; M79.671 Pain in right foot; M79.672 Pain in left foot; M79.1 Myalgia; Z87.891 Personal history of nicotine dependence
CPT/HCPCS: 99284; 36415; 85025; 80053; 83880; 71046; J7512

== ENCOUNTER 2018-04-16 21:43 | Inpatient (IN) | payer OTHER, MEDICARE, MEDICAID ==
[2018-04-16] MEDS ORDERED: ALBUTEROL SULFATE 0.083% NEB 2.5 MG/3 ML AMPUL NEB ONE ×2 (21:53→22:25)
[2018-04-16] MEDS ORDERED: IPRATROPIUM/ALBUTEROL 0.5-2.5 MG/3 ML AMPUL NEB ONE (21:53)
--- NOTE | 2018-04-16 22:06 | ER Document Report ---
ED General - General Stated Complaint: SHORTNESS OF BREATH Time Seen by Provider: 04/16/18 21:48 Notes: Patient is a 62-year-old female with past medical history of CHF, COPD, chronic kidney disease who presents by EMS with 3 days of progressively worsening shortness of breath. The patient apparently was in respiratory distress when EMS arrived. She was placed on a continuous nebulizer, given Solu-Medrol, magnesium and transferred to the hospital. EMS notes minimal improvement with these interventions. The patient states that this feels identical to when she has had COPD exacerbations in the past. She states that she has been using her home nebulizers again without significant improvement. She has not seen her primary doctor regarding today's concerns. She denies any associated chest pain , vomiting or fever. TRAVEL OUTSIDE OF THE [place] IN LAST 30 DAYS: No - Related Data Allergies/Adverse Reactions: No Known Allergies Allergy (Verified 12/15/17 07:04) Past Medical History - General Information source: Patient - Social History Smoking Status: Former Smoker Frequency of alcohol use: None Drug Abuse: None Lives with: Alone Family History: CVA, Hypertension - Past Medical History Cardiac Medical History: Reports: Hx Congestive Heart Failure, Hx Coronary Artery Disease, Hx Hypercholesterolemia, Hx Hypertension, Hx Heart Murmur Pulmonary Medical History: Reports: Hx Asthma, Hx Bronchitis, Hx COPD - O2 dependent, Hx Pneumonia Denies: Hx Tuberculosis Renal/ Medical History: Denies: Hx Peritoneal Dialysis GI Medical History: Denies: Hx Cirrhosis, Hx Crohn's Disease, Hx Diverticulitis , Hx Gastroesophageal Reflux Disease, Hx Hepatitis, Hx Hiatal Hernia Musculoskeltal Medical History: Denies Hx Arthritis, Denies Hx Fibromyalgia, Reports Hx Gout Skin Medical History: Denies Hx Eczema, Denies Hx Psoriasis Psychiatric Medical History: Reports: Hx Depression Traumatic Medical History: Denies: Hx Gunshot Wound, Hx Pneumothorax, Hx Traumatic Brain Injury Infectious Medical History: Denies: Hx Hepatitis Past Surgical History: Reports: Hx Section - x 4, Hx Tubal Ligation - Immunizations Hx Diphtheria, Pertussis, Tetanus Vaccination: Yes Hx Pneumococcal Vaccination: 05/06/12 Review of Systems - Review of Systems Notes: Constitutional: Negative for fever. HENT: Negative for sore throat. Eyes: Negative for visual changes. Cardiovascular: Negative for chest pain. Respiratory: Positive for shortness of breath. Gastrointestinal: Negative for abdominal pain, vomiting or diarrhea. Genitourinary: Negative for dysuria. Musculoskeletal: Negative for back pain. Skin: Negative for rash. Neurological: Negative for headaches, weakness or numbness. 10 point ROS negative except as marked above and in HPI. Physical Exam - Vital signs Vitals: Resp 520 H 04/16/18 21:53 Interpretation: Tachycardic, Tachypneic Notes: PHYSICAL EXAMINATION: GENERAL: Patient appears ill, in respiratory distress HEAD: Atraumatic, normocephalic. EYES: Pupils equal round and reactive to light, extraocular movements intact, sclera anicteric, conjunctiva are normal. ENT: nares patent, oropharynx clear without exudates. Moderately dry mucous membranes. NECK: Normal range of motion, supple without lymphadenopathy LUNGS: Poor air movement in all lung tan. Diffuse expiratory wheezing throughout. Moderate respiratory distress breathing 30 times per minute on initial assessment. HEART: Regular tachycardia without murmurs ABDOMEN: Soft, nontender, normoactive bowel sounds. No guarding, no rebound. No masses appreciated. EXTREMITIES: Normal range of motion, no pitting or edema. No cyanosis. NEUROLOGICAL: No focal neurological deficits. Moves all extremities spontaneously and on command. PSYCH: Normal mood, normal affect. SKIN: Warm, Dry, normal turgor, no rashes or lesions noted. Course - Re-evaluation Re-evalutation: 04/16/18 22:04 Patient presents in moderate respiratory distress breathing 30 times per minute with diffuse scattered wheezing and rales in all lung tan. She has a known history of COPD as well as congestive heart failure. Her clinical presentation appears to be more of a severe COPD exacerbation than a CHF exacerbation as she has no overt signs of volume overload on examination. Patient had a ready received 2 g of magnesium as well as 125 mg of Solu-Medrol prior to arrival. She also received 2 duo nebulizers without significant improvement. The patient will therefore be placed immediately on BiPAP we will begin continuous in-line nebulizer therapy. A chest x-ray and labs will be obtained. She will require frequent reassessments and is currently in guarded condition. 0-patient's work of breathing is overall markedly improved on BiPAP although she continues to have moderate tachypnea, breathing 25 times per minute. She continues to have coarse expiratory wheezing in all lung tan although her aeration is much improved. Will continue to monitor closely. 04/16/18 23:08 Patient's work of breathing continues to improve. She is currently breathing about 20 times per minute. Continues to have extra Tory wheezing in all lung tan. Continuous nebulizers are ongoing. Chest x-ray shows no acute infiltrates or evidence of congestive failure. Labs notable for a mildly elevated troponin although this is actually lower than the patient's normal. Likewise her renal function continues to show some chronic kidney disease but is again better than her baseline. Will discuss with the hospitalist for admission and continue to monitor the patient closely. 04/16/18 23:55 Patient's work of breathing continues to be improved. I discussed this case with Dr. Miller and he has accepted the patient for admission at this time. - Vital Signs Vital signs: Temp Pulse Resp BP Pulse Ox 27 H 146/84 H 96 04/17/18 00:01 04/17/18 00:01 04/17/18 00:01 - Laboratory Result Diagrams: 04/16/18 22:05 04/16/18 22:05 Laboratory results interpreted by me: 04/16/18 04/16/18 04/16/18 22:05 22:05 22:05 RBC 3.60 L Hgb 10.4 L Hct 30.8 L RDW 14.1 H Eosinophils % 6.9 H Sodium 145.5 H Potassium 3.3 L BUN 39 H Creatinine 2.11 H Est GFR ( Amer) 29 L Est GFR (Non-Af Amer) 24 L NT-Pro-B Natriuret Pep 1130 H - Diagnostic Test Radiology reviewed: Image reviewed, Reports reviewed Radiology results interpreted by me: 04/16/18 23:11 Chest x-ray: Cardiomegaly but no focal infiltrates Critical Care Note - Critical Care Note Total time excluding time spent on procedures (mins): 38 Comments: Critical care time spent obtaining history from patient or surrogate, discussions with consultants, development of treatment plan with patient or surrogate, evaluation of patient's response to treatment, examination of patient , ordering and performing treatments and interventions, ordering and review of laboratory studies, re-evaluation of patient's condition, ordering and review of radiographic studies and review of old charts Discharge - Discharge Clinical Impression: Respiratory distress, COPD exacerbation Acute on chronic renal failure Qualifiers: Acute renal failure type: unspecified Chronic kidney disease stage: unspecified stage Qualified Code(s): N17.9 - Acute kidney failure, unspecified Condition: Fair Disposition: ADMITTED INPATIENT Admitting Provider: Hospitalist Unit Admitted: Telemetry
[2018-04-16 22:17] LABS: ABSOLUTE BASOPHILS # (AUTO) 0.1 10^3/uL (0.0-0.2); ABSOLUTE EOSINOPHILS # (AUTO) 0.6 10^3/uL (0.0-0.6); ABSOLUTE MONOCYTES (AUTO) 0.8 10^3/uL (0.1-1.4); ABSOLUTE NEUT (AUTO) 5.8 10^3/uL (1.7-8.2); BASOPHILS % (AUTO) 0.6 % (0-2); EOSINOPHILS % (AUTO) 6.9 % (0-6); HEMATOCRIT 30.8 % (36.0-47.0); HEMOGLOBIN 10.4 g/dL (12.0-15.5); LYMPHOCYTES % (AUTO) 21.4 % (13-45); MEAN CORPUSCULAR HEMOGLOBIN 28.8 pg (27.0-33.4); MEAN CORPUSCULAR HGB CONC 33.7 g/dL (32.0-36.0); MEAN CORPUSCULAR VOLUME 86 fl (80-97); MONOCYTES % (AUTO) 8.6 % (3-13); PLATELET COUNT 241 10^3/uL (150-450); RED CELL DISTRIBUTION WIDTH 14.1 % (11.5-14.0); SEGMENTED NEUTROPHILS % (AUTO) 62.5 % (42-78); TOTAL CELLS COUNTED % (AUTO) 100 %; WHITE BLOOD COUNT 9.3 10^3/uL (4.0-10.5)
--- NOTE | 2018-04-16 22:29 | RADIOLOGY REPORT (SQ) ---
EXAM DESCRIPTION: CHEST SINGLE VIEW COMPLETED DATE/TIME: 04/16/2018 10:16 pm REASON FOR STUDY: sob COMPARISON: 02/20/2018. NUMBER OF VIEWS: One view. TECHNIQUE: Single frontal radiographic view of the chest acquired. LIMITATIONS: None. FINDINGS: LUNGS AND PLEURA: No opacities, masses or pneumothorax. No pleural effusion. MEDIASTINUM AND HILAR STRUCTURES: No masses. Contour normal. HEART AND VASCULAR STRUCTURES: Heart enlarged without failure. Normal vasculature. BONES: No acute findings. HARDWARE: None in the chest. OTHER: No other significant finding. IMPRESSION: HEART ENLARGED WITHOUT FAILURE. NO OTHER SIGNIFICANT RADIOGRAPHIC FINDING IN THE CHEST. TECHNICAL DOCUMENTATION: JOB ID: [id number] [employer]- All Rights Reserved Reading location - IP/workstation name: [email or web address]
[2018-04-16 22:35] LABS: ANION GAP 13 (5-19); BLOOD UREA NITROGEN 39 mg/dL (7-20); CALCIUM 9.5 mg/dL (8.4-10.2); CARBON DIOXIDE 26 mmol/L (22-30); CHLORIDE 107 mmol/L (98-107); GLUCOSE 105 mg/dL (75-110); POTASSIUM 3.3 mmol/L (3.6-5.0); SODIUM 145.5 mmol/L (137-145)
[2018-04-16 22:48] LABS: TROPONIN I 0.053 ng/mL
[2018-04-16 23:18] LABS: VENOUS BLOOD PH 7.38 (7.30-7.42)
[2018-04-16 23:19] LABS: VENOUS BLOOD BASE EXCESS -0.6 mmol/L; VENOUS BLOOD HCO3 24.5 mmol/L (20-32); VENOUS BLOOD PCO2 42.3 mmHg (35-63)
[2018-04-16] MEDS ORDERED: CHLORPHENIRAMINE MALEATE 4 MG TABLET PO ONE (23:49)
[2018-04-16] MEDS ORDERED: HYDRALAZINE HCL INJ/PF 20 MG/1 ML SDV IV PRN (23:49)
[2018-04-16] MEDS ORDERED: ACETAMINOPHEN 325 MG TABLET PO PRN (23:50)
[2018-04-16] MEDS ORDERED: GUAIFENESIN SYRP 200 MG/10 ML UDC PO PRN (23:50)
[2018-04-16] MEDS ORDERED: IPRATROPIUM/ALBUTEROL 0.5-2.5 MG/3 ML AMPUL NEB PRN (23:50)
[2018-04-17] MEDS ORDERED: FLUTICASONE NASAL SPRAY 50 MCG/SPRY 120 SPRAY/16 GM NASL ONE (00:30)
[2018-04-17] MEDS ORDERED: PREDNISONE 20 MG TABLET PO ONE (00:30)
[2018-04-17] MEDS ORDERED: LEVOFLOXACIN 750 MG/D5W RTU 750 MG/150 ML RTUPB IV ONE (01:00)
[2018-04-17] MEDS ORDERED: CARVEDILOL 12.5 MG TABLET PO ONE (01:00)
[2018-04-17] MEDS: POTASSI CL 20 MEQ/50 ML RIDER 20 MEQ/50 ML RTUPB IV SCH ×2 (01:34→03:15)
[2018-04-17] MEDS: IPRATROPIUM/ALBUTEROL 0.5-2.5 MG/3 ML AMPUL NEB SCH ×4 (02:21→20:34)
[2018-04-17] MEDS ORDERED: FLUTICASONE NASAL SPRAY 50 MCG/SPRY 120 SPRAY/16 GM ONE (02:33)
[2018-04-17] MEDS ORDERED: CHLORPHENIRAMINE MALEATE 4 MG TABLET ONE (02:33)
--- NOTE | 2018-04-17 04:46 | PDOC H&P ---
History of Present Illness Admission Date/PCP: 04/17/18 00:10 WENCESLAO PEGUERO DO Patient complains of: Shortness of breath History of Present Illness: BOOM TODD is a 62 year old female with a history of chronic diastolic heart failure, obstructive sleep apnea, moderate mitral regurgitation, CKD 3, 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 Patient presents after 3 days of worsening shortness of breath denying rhinorrhea, sore throat, acid reflux or infectious contacts. She denies recent change in medications, fever nausea vomiting or chest pain. In the emergency room she is received steroids and continuous albuterol and Atrovent nebulizer with minimal improvement. She is referred to the hospitalist for admission. Past Medical History Cardiac Medical History: Reports: Congestive Heart Failure, Coronary Artery Disease, Hyperlipidema, Hypertension, Heart Murmur Pulmonary Medical History: Reports: Asthma, Bronchitis, Chronic Obstructive Pulmonary Disease (COPD) - O2 dependent, Pneumonia Denies: Tuberculosis GI Medical History: Denies: Cirrhosis, Crohn's Disease, Diverticulitis, Gastroesophageal Reflux Disease, Hepatitis, Hiatal Hernia Musculoskeltal Medical History: Reports: Gout Denies: Arthritis, Fibromyalgia Skin Medical History: Denies: Eczema, Psoriasis Psychiatric Medical History: Reports: Depression, Tobacco Dependency Traumatic Medical History: Denies: Gunshot Wound, Pneumothorax, Traumatic Brain Injury Hematology: Denies: Hemophilia, Sickle Cell Disease, Bleeding Tendencies Past Surgical History Past Surgical History: Reports: Section - x 4, Tubal Ligation Social History Information Source: Patient, [facility] Records Lives with: Alone Smoking Status: Former Smoker Frequency of Alcohol Use: None Hx Recreational Drug Use: No Drugs: None Hx Prescription Drug Abuse: No - Advance Directive Resuscitation Status: Full Code Family History Family History: CVA, Hypertension Parental Family History Reviewed: Yes Children Family History Reviewed: Yes Sibling(s) Family History Reviewed.: Yes Medication/Allergy Home Medications: Albuterol Sulfate [Albuterol Sulfate 2.5mg/3 mL] 1 vial NEB QID 12/15/17 Albuterol Sulfate [Proair HFA Inhalation Aerosol 8.5 gm MDI] 2 puff IH BID 12/15 Amlodipine Besylate [Norvasc 10 mg Tablet] 10 mg PO DAILY 12/15/17 Aspirin [Aspirin EC] 81 mg PO DAILY 12/15/17 Budesonide/Formoterol Fumarate [Symbicort 160-4.5 Mcg Inhaler] 2 puff IH Q12 Carvedilol [Coreg 12.5 mg Tablet] 12.5 mg PO Q12 12/15/17 Cyanocobalamin (Vitamin B-12) [Vitamin B-12 100 mcg Tablet] 100 mcg PO DAILY Ferrous Sulfate [Iron] 325 mg PO DAILY 12/15/17 Fluticasone Propionate [Flonase Nasal Rochelle 50 Mcg/Rochelle 16 gm] 2 sprays NASL DAILY 12/15/17 Furosemide [Lasix 20 mg Tablet] 20 mg PO BID 12/15/17 Gabapentin [Neurontin 400 mg Capsule] 400 mg PO Q12 12/15/17 Hydralazine HCl [Apresoline 50 mg Tablet] 100 mg PO Q12 12/15/17 Lisinopril [Prinivil 5 mg Tablet] 5 mg PO DAILY 12/15/17 Tiotropium [place] [Spiriva Handihaler 18 mcg/dose (30 Dose)] 1 cap IH DAILY Tramadol HCl [Ultram 50 mg Tablet] 50 mg PO Q12HP PRN 12/15/17 Doxycycline Monohydrate 100 mg PO BID #10 tablet 12/17/17 Methylprednisolone [Medrol Dosepack (4 mg/Tab) 21 Tab/Dosepak] 4 mg PO ASDIR PRN #21 tab.ds.pk 12/17/17 Oxycodone HCl/Acetaminophen [Percocet 5-325 mg Tablet] 1 - 2 tab PO Q4H PRN #15 tablet 02/20/18 Prednisone [Deltasone 20 mg Tablet] 3 tab PO DAILY 5 Days tablet 02/20/18 Allergies/Adverse Reactions: No Known Allergies Allergy (Verified 12/15/17 07:04) Review of Systems Constitutional: ABSENT: chills, fever(s), headache(s), weight gain, weight loss Eyes: ABSENT: visual disturbances Ears: ABSENT: hearing changes Cardiovascular: ABSENT: chest pain, dyspnea on exertion, edema, orthropnea, palpitations Respiratory: ABSENT: cough, hemoptysis Gastrointestinal: ABSENT: abdominal pain, constipation, diarrhea, hematemesis, hematochezia, nausea, vomiting Genitourinary: ABSENT: dysuria, hematuria Musculoskeletal: ABSENT: joint swelling Integumentary: ABSENT: rash, wounds Neurological: ABSENT: abnormal gait, abnormal speech, confusion, dizziness, focal weakness, syncope Psychiatric: ABSENT: anxiety, depression, homidical ideation, suicidal ideation Endocrine: ABSENT: cold intolerance, heat intolerance, polydipsia, polyuria Hematologic/Lymphatic: ABSENT: easy bleeding, easy bruising Physical Exam Vital Signs: Temp Pulse Resp BP Pulse Ox 99.0 F 91 18 143/83 H 95 04/17/18 01:21 04/17/18 02:21 04/17/18 02:21 04/17/18 01:21 04/17/18 04:15 Pulse Oximeter Continuous Start: 04/16/18 23: 50 Freq: RTQ4 Status: Active Document 04/17/18 04:15 CMI (Rec: 04/17/18 04:36 CMI [email or web address]) Pulse Oximetry Assessment Oxygen Saturation (92-100) 95 Oxygen Flow Rate (L/min) 2 Oxygen Delivery Method Nasal Cannula Fraction of Inspired Oxygen (FIO2) 28 Equipment Usage Equipment in Use Continuous Pulse Oximeter 24 Hour Charge Charge Now Continuous SpO2 Machine # 1 Intake & Output 04/15/18 04/16/18 04/17/18 11:59 11:59 11:59 Weight 100.8 kg General appearance: PRESENT: cooperative, mild distress, morbidly obese Head exam: PRESENT: atraumatic, normocephalic Eye exam: PRESENT: conjunctiva pink, EOMI, PERRLA. ABSENT: scleral icterus Ear exam: PRESENT: normal external ear exam Mouth exam: PRESENT: moist, tongue midline Neck exam: ABSENT: carotid bruit, JVD, lymphadenopathy, thyromegaly Respiratory exam: PRESENT: accessory muscle use, crackles, decreased breath sounds, prolonged expiratory phas, retraction, symmetrical, tachypnea Cardiovascular exam: PRESENT: RRR. ABSENT: diastolic murmur, rubs, systolic murmur Pulses: PRESENT: normal dorsalis pedis pul Vascular exam: PRESENT: normal capillary refill GI/Abdominal exam: PRESENT: normal bowel sounds, soft. ABSENT: distended, guarding, mass, organolmegaly, rebound, tenderness Rectal exam: PRESENT: deferred Extremities exam: PRESENT: full ROM. ABSENT: calf tenderness, clubbing, pedal edema Neurological exam: PRESENT: alert, awake, oriented to person, oriented to place , oriented to time, oriented to situation, CN II-XII grossly intact. ABSENT: motor sensory deficit Psychiatric exam: PRESENT: appropriate affect, normal mood. ABSENT: homicidal ideation, suicidal ideation Skin exam: PRESENT: dry, intact, warm. ABSENT: cyanosis, rash Results Impressions: Chest X-Ray 04/16/18 21:53 IMPRESSION: HEART ENLARGED WITHOUT FAILURE. NO OTHER SIGNIFICANT RADIOGRAPHIC FINDING IN THE CHEST. Assessment & Plan - Diagnosis (1) Acute exacerbation of chronic bronchitis Is this a current diagnosis for this admission?: Yes Plan: Telemetry bed, supplemental oxygen, Flonase, chlorpheniramine, prednisone, empiric antibiotic albuterol and Atrovent and aggressive pulmonary toilet. (2) Acute on chronic renal failure Qualifiers: Acute renal failure type: unspecified Chronic kidney disease stage: unspecified stage Qualified Code(s): N17.9 - Acute kidney failure, unspecified ; N18.9 - Chronic kidney disease, unspecified; N18.9 - Chronic kidney disease, unspecified Is this a current diagnosis for this admission?: Yes Plan: Avoid nephrotoxic meds and doses reevaluate chemistry. (3) COPD exacerbation Is this a current diagnosis for this admission?: Yes Plan: Please see #1, BiPAP - Time Time Spent: 50 to 70 Minutes - Inpatient Certification Medical Necessity: Need Close Monitoring Due to Risk of Patient Decompensation
[2018-04-17 05:25] LABS: ABSOLUTE LYMPHOCYTES (AUTO) 0.8 10^3/uL (0.5-4.7); ABSOLUTE MONOCYTES (AUTO) 0.1 10^3/uL (0.1-1.4); ABSOLUTE NEUT (AUTO) 6.7 10^3/uL (1.7-8.2); BASOPHILS % (AUTO) 0.4 % (0-2); EOSINOPHILS % (AUTO) 0.1 % (0-6); HEMATOCRIT 29.7 % (36.0-47.0); MEAN CORPUSCULAR HEMOGLOBIN 28.4 pg (27.0-33.4); MEAN CORPUSCULAR HGB CONC 33.6 g/dL (32.0-36.0); MEAN CORPUSCULAR VOLUME 84 fl (80-97); PLATELET COUNT 219 10^3/uL (150-450); RED BLOOD COUNT 3.52 10^6/uL (3.72-5.28); RED CELL DISTRIBUTION WIDTH 14.3 % (11.5-14.0); SEGMENTED NEUTROPHILS % (AUTO) 88.5 % (42-78); TOTAL CELLS COUNTED % (AUTO) 100 %; WHITE BLOOD COUNT 7.6 10^3/uL (4.0-10.5)
[2018-04-17 05:52] LABS: ANION GAP 15 (5-19); BLOOD UREA NITROGEN 44 mg/dL (7-20); CALCIUM 9.4 mg/dL (8.4-10.2); CARBON DIOXIDE 25 mmol/L (22-30); CHLORIDE 108 mmol/L (98-107); GLUCOSE 150 mg/dL (75-110); SODIUM 147.8 mmol/L (137-145)
[2018-04-17 05:59] LABS: POTASSIUM 4.6 mmol/L (3.6-5.0)
[2018-04-17] MEDS: HEPARIN SOD (PORCINE) 5,000 UNIT/ML 1 ML SYRINGE SUBCUT SCH ×3 (07:53→21:55)
--- NOTE | 2018-04-17 09:06 | EKG REPORT ---
SEVERITY:- ABNORMAL ECG - SINUS TACHYCARDIA VENTRICULAR PREMATURE COMPLEX PROBABLE LEFT ATRIAL ABNORMALITY LEFT BUNDLE BRANCH BLOCK : Confirmed by: Lauren Wick 17-Apr-2018 09:05:38
[2018-04-17] MEDS: HYDRALAZINE HCL 50 MG TABLET PO SCH ×2 (09:35→21:55)
[2018-04-17] MEDS: CARVEDILOL 12.5 MG TABLET PO SCH ×2 (09:35→21:53)
[2018-04-17] MEDS: GABAPENTIN 400 MG CAPSULE PO SCH ×2 (09:36→21:53)
[2018-04-17] MEDS: AMLODIPINE BESYLATE 10 MG TABLET PO SCH (09:36)
[2018-04-17] MEDS: PREDNISONE 20 MG TABLET PO SCH ×2 (09:36→18:35)
[2018-04-17] MEDS: FLUTICASONE NASAL SPRAY 50 MCG/SPRY 120 SPRAY/16 GM NASL SCH ×2 (09:36→21:52)
[2018-04-17] MEDS ORDERED: TRAMADOL HCL 50 MG TABLET PO PRN (15:15)
[2018-04-17] MEDS ORDERED: FUROSEMIDE INJ/PF 40 MG/4 ML SDV IV ONE (15:45)
[2018-04-17] MEDS: FUROSEMIDE 20 MG TABLET PO SCH (18:36)
[2018-04-17] MEDS: BUDESONIDE/FORMOTEROL 160-4.5 MCG 60 PUFF/6 GM MDI IH SCH (21:53)
[2018-04-18] MEDS: IPRATROPIUM/ALBUTEROL 0.5-2.5 MG/3 ML AMPUL NEB SCH ×4 (01:53→19:57)
[2018-04-18] MEDS: HEPARIN SOD (PORCINE) 5,000 UNIT/ML 1 ML SYRINGE SUBCUT SCH ×3 (05:33→21:29)
[2018-04-18 05:50] LABS: ALBUMIN 3.6 g/dL (3.5-5.0); ANION GAP 17 (5-19); CALCIUM 9.7 mg/dL (8.4-10.2); CARBON DIOXIDE 22 mmol/L (22-30); CHLORIDE 106 mmol/L (98-107); GLUCOSE 115 mg/dL (75-110); PHOSPHORUS 4.2 mg/dL (2.5-4.5); POTASSIUM 4.4 mmol/L (3.6-5.0); SODIUM 144.5 mmol/L (137-145)
[2018-04-18 06:08] LABS: BLOOD UREA NITROGEN 63 mg/dL (7-20)
[2018-04-18] MEDS ORDERED: FUROSEMIDE INJ/PF 40 MG/4 ML SDV IV ONE ×2 (09:30→16:30)
[2018-04-18] MEDS: BUDESONIDE/FORMOTEROL 160-4.5 MCG 60 PUFF/6 GM MDI IH SCH ×2 (09:31→21:29)
[2018-04-18] MEDS: FLUTICASONE NASAL SPRAY 50 MCG/SPRY 120 SPRAY/16 GM NASL SCH ×2 (09:31→21:29)
[2018-04-18] MEDS: FERROUS SULFATE 325 MG TABLET PO SCH (09:32)
[2018-04-18] MEDS: HYDRALAZINE HCL 50 MG TABLET PO SCH ×2 (09:33→21:30)
[2018-04-18] MEDS: CARVEDILOL 12.5 MG TABLET PO SCH ×2 (09:35→21:28)
[2018-04-18] MEDS: GABAPENTIN 400 MG CAPSULE PO SCH ×2 (09:35→21:30)
[2018-04-18] MEDS: LISINOPRIL 5 MG TABLET PO SCH (09:35)
[2018-04-18] MEDS: FUROSEMIDE 20 MG TABLET PO SCH (09:36)
[2018-04-18] MEDS: ASPIRIN 81 MG TABLET, ENT COATED PO SCH (09:36)
[2018-04-18] MEDS: PREDNISONE 20 MG TABLET PO SCH ×2 (09:36→18:05)
[2018-04-18] MEDS: AMLODIPINE BESYLATE 10 MG TABLET PO SCH (09:36)
[2018-04-18] MEDS: LEVOFLOXACIN 750 MG/D5W RTU 750 MG/150 ML RTUPB IV SCH (09:37)
[2018-04-18] MEDS ORDERED: (PENDING PHARMACY ID) (Cyanocobalamin (Vitamin B-12) [Vitamin B-12 100 Mcg Tablet] 100 MCG PO SCH (10:00)
--- NOTE | 2018-04-18 16:24 | PDOC PROGRESS REPORT ---
Subjective Progress Note for:: 04/18/18 Subjective:: Still does not feel back to baseline. Short of breath with exertion. Reason For Visit: COPD EXACERBATION,ACUTE BRONCHITIS Physical Exam Vital Signs: Temp Pulse Resp BP Pulse Ox 97.9 F 74 18 156/75 H 97 04/18/18 11:40 04/18/18 14:00 04/18/18 13:42 04/18/18 11:40 04/18/18 15:48 Pulse Oximeter Continuous Start: 04/16/18 23: 50 Freq: RTQ4 Status: Active Document 04/18/18 15:48 TPO (Rec: 04/18/18 16:03 TPO [email or web address]) Pulse Oximetry Assessment Oxygen Saturation (92-100) 97 Oxygen Flow Rate (L/min) 2 Oxygen Delivery Method Nasal Cannula Fraction of Inspired Oxygen (FIO2) 28 Equipment Usage Equipment in Use Continuous SpO2 Machine # 1 Intake & Output 04/17/18 04/18/18 04/19/18 05:59 05:59 05:59 Intake Total 1200 2220 931 Output Total 0 Balance 1200 2220 931 Weight 222 lb 3.615 oz 227 lb 1.218 oz General appearance: PRESENT: no acute distress Respiratory exam: PRESENT: clear to auscultation brandon Cardiovascular exam: PRESENT: RRR GI/Abdominal exam: PRESENT: soft Musculoskeletal exam: PRESENT: normal inspection Neurological exam: PRESENT: alert Psychiatric exam: PRESENT: appropriate affect Skin exam: PRESENT: warm Results Laboratory Results: 04/17/18 05:10 04/18/18 05:02 04/18/18 05:02 Sodium 144.5 Potassium 4.4 Chloride 106 Carbon Dioxide 22 Anion Gap 17 BUN 63 H Creatinine 2.36 H Est GFR ( Amer) 25 L Est GFR (Non-Af Amer) 21 L Glucose 115 H Calcium 9.7 Phosphorus 4.2 Magnesium 1.8 Albumin 3.6 04/18/18 05:02 NT-Pro-B Natriuret Pep 1470 H Impressions: Chest X-Ray 04/16/18 21:53 IMPRESSION: HEART ENLARGED WITHOUT FAILURE. NO OTHER SIGNIFICANT RADIOGRAPHIC FINDING IN THE CHEST. Assessment & Plan - Diagnosis (1) Acute on chronic respiratory failure with hypoxemia Is this a current diagnosis for this admission?: Yes Plan: Continue steroids, nebulizers, Levaquin. (2) COPD exacerbation Is this a current diagnosis for this admission?: Yes (3) Acute kidney injury superimposed on chronic kidney disease Is this a current diagnosis for this admission?: Yes Plan: May be due to volume overload. Try more aggressive diuresis. (4) CKD (chronic kidney disease), stage IV Is this a current diagnosis for this admission?: Yes Plan: GFR has declined since November of this year. Unclear whether this is acute or chronic. (5) Acute on chronic diastolic CHF (congestive heart failure) Is this a current diagnosis for this admission?: Yes Plan: Diuresis as tolerated. (6) Moderate to severe pulmonary hypertension Is this a current diagnosis for this admission?: Yes (7) Obstructive sleep apnea Is this a current diagnosis for this admission?: Yes Plan: Not on BiPAP. States she was not able to complete her sleep study due to illness. Needs to get a sleep study as an outpatient. (8) Severe obesity (BMI 35.0-39.9) with comorbidity Is this a current diagnosis for this admission?: Yes
[2018-04-18] MEDS: FUROSEMIDE INJ/PF 40 MG/4 ML SDV IV SCH (18:06)
[2018-04-18] MEDS ORDERED: FUROSEMIDE INJ/PF 40 MG/4 ML SDV IV SCH (22:00)
[2018-04-19] MEDS: FUROSEMIDE INJ/PF 40 MG/4 ML SDV IV SCH ×2 (01:54→09:02)
[2018-04-19] MEDS: IPRATROPIUM/ALBUTEROL 0.5-2.5 MG/3 ML AMPUL NEB SCH ×2 (02:45→08:42)
[2018-04-19 05:38] LABS: ALBUMIN 3.6 g/dL (3.5-5.0); ANION GAP 14 (5-19); BLOOD UREA NITROGEN 69 mg/dL (7-20); CALCIUM 9.2 mg/dL (8.4-10.2); CARBON DIOXIDE 25 mmol/L (22-30); CHLORIDE 104 mmol/L (98-107); GLUCOSE 121 mg/dL (75-110); PHOSPHORUS 3.8 mg/dL (2.5-4.5); SODIUM 143.1 mmol/L (137-145)
[2018-04-19] MEDS: HEPARIN SOD (PORCINE) 5,000 UNIT/ML 1 ML SYRINGE SUBCUT SCH (05:41)
[2018-04-19 07:52] VITALS: BP 148/80
[2018-04-19] MEDS: FLUTICASONE NASAL SPRAY 50 MCG/SPRY 120 SPRAY/16 GM NASL SCH (09:02)
[2018-04-19] MEDS: LEVOFLOXACIN 750 MG/D5W RTU 750 MG/150 ML RTUPB IV SCH (09:02)
[2018-04-19] MEDS: FERROUS SULFATE 325 MG TABLET PO SCH (09:03)
[2018-04-19] MEDS: BUDESONIDE/FORMOTEROL 160-4.5 MCG 60 PUFF/6 GM MDI IH SCH (09:03)
[2018-04-19] MEDS: GABAPENTIN 400 MG CAPSULE PO SCH (09:03)
[2018-04-19] MEDS: AMLODIPINE BESYLATE 10 MG TABLET PO SCH (09:03)
[2018-04-19] MEDS: PREDNISONE 20 MG TABLET PO SCH (09:04)
[2018-04-19] MEDS: CARVEDILOL 12.5 MG TABLET PO SCH (09:04)
[2018-04-19] MEDS: HYDRALAZINE HCL 50 MG TABLET PO SCH (09:04)
[2018-04-19] MEDS: LISINOPRIL 5 MG TABLET PO SCH (09:04)
[2018-04-19] MEDS: ASPIRIN 81 MG TABLET, ENT COATED PO SCH (09:04)
--- NOTE | 2018-04-19 11:17 | PDOC DISCHARGE SUMMARY ---
General - Admit/Disc Date/PCP Admission Date/Primary Care Provider: 04/17/18 00:10 WENCESLOA VIDAL DO Discharge Date: 04/19/18 - Discharge Diagnosis (1) Acute on chronic respiratory failure with hypoxemia Is this a current diagnosis for this admission?: Yes Summary: Improved since admission. Currently back to baseline of 2L NC. Today feels that she has decreased exercise tolerance compared to baseline but is improving. Requested discharge to home. She has some support at home. - Discharge medications: 1. three additional days of Prednisone 40mg daily 2. three days of Azithromycin 250mg PO daily (received IV Levaquin during admission ) - Continue home medications for COPD - Follow up with PCP (Dr. Vidal) by early next week. (2) Acute on chronic renal failure Is this a current diagnosis for this admission?: Yes Summary: Noted to have declining GFR since 11/2017. Chronicity unclear. Likely multifactorial in nature. (3) COPD exacerbation Is this a current diagnosis for this admission?: Yes Summary: Per above. (4) Acute on chronic diastolic CHF (congestive heart failure) Is this a current diagnosis for this admission?: Yes Summary: Received IV Lasix 40mg q8 hours with improvement in fluid status. Euvolemic on exam on day of discharge - Resume Lasix 40mg PO daily, continue HF medications - Follow up with PCP/cardiology as outpatient. (5) Hypertension Is this a current diagnosis for this admission?: Yes Summary: Resumed home medications at discharge (6) Obstructive sleep apnea Is this a current diagnosis for this admission?: Yes Summary: Previously had aborted sleep study; should be re-done as outpatient - Additional Information Resuscitation Status: Full Code Discharge Diet: Cardiac Discharge Activity: Activity As Tolerated, Balance Activity w/Rest Prescriptions: Azithromycin [Zithromax 250 mg Tablet] 250 mg PO DAILY 3 Days #3 tablet Prednisone [Deltasone 20 mg Tablet] 40 mg PO DAILY 3 Days #3 tablet Home Medications: Albuterol Sulfate [Proair HFA Inhalation Aerosol 8.5 gm MDI] 2 puff IH BID 12/15 Amlodipine Besylate [Norvasc 10 mg Tablet] 10 mg PO DAILY 12/15/17 Aspirin [Aspirin EC] 81 mg PO DAILY 12/15/17 Budesonide/Formoterol Fumarate [Symbicort 160-4.5 Mcg Inhaler] 2 puff IH Q12 Carvedilol [Coreg 12.5 mg Tablet] 12.5 mg PO Q12 12/15/17 Cyanocobalamin (Vitamin B-12) [Vitamin B-12 100 mcg Tablet] 100 mcg PO DAILY Ferrous Sulfate [Iron] 325 mg PO DAILY 12/15/17 Gabapentin [Neurontin 400 mg Capsule] 400 mg PO Q12 12/15/17 Lisinopril [Prinivil 5 mg Tablet] 5 mg PO DAILY 12/15/17 Tiotropium [place] [Spiriva Handihaler 18 mcg/dose (30 Dose)] 1 cap IH DAILY Tramadol HCl [Ultram 50 mg Tablet] 50 mg PO Q12HP PRN 12/15/17 Azithromycin [Zithromax 250 mg Tablet] 250 mg PO DAILY 3 Days #3 tablet Furosemide [Lasix 20 mg Tablet] 40 mg PO DAILY #0 04/19/18 Prednisone [Deltasone 20 mg Tablet] 40 mg PO DAILY 3 Days #3 tablet 04/19/18 History of Present Illness History of Present Illness: BOOM TODD is a 62 year old female with a history of chronic diastolic heart failure, obstructive sleep apnea, moderate mitral regurgitation, CKD 3, 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 Patient presents after 3 days of worsening shortness of breath denying rhinorrhea, sore throat, acid reflux or infectious contacts. She denies recent change in medications, fever nausea vomiting or chest pain. In the emergency room she received steroids and continuous albuterol and Atrovent nebulizer with minimal improvement. She was admitted to hospitalist service on 04/17/18. Physical Exam Vital Signs: Temp Pulse Resp BP Pulse Ox 97.8 F 70 18 148/80 H 97 04/19/18 10:31 04/19/18 10:31 04/19/18 10:31 04/19/18 10:31 04/19/18 10:31 Pulse Oximeter Continuous Start: 04/16/18 23: 50 Freq: RTQ4 Status: Active Document 04/19/18 08:42 TPO (Rec: 04/19/18 08:57 TPO [email or web address]) Pulse Oximetry Assessment Oxygen Saturation (92-100) 97 Oxygen Flow Rate (L/min) 2 Oxygen Delivery Method Nasal Cannula Fraction of Inspired Oxygen (FIO2) 28 Equipment Usage Equipment in Use Continuous SpO2 Machine # 1 Intake & Output 04/18/18 04/19/18 04/20/18 06:59 06:59 06:59 Intake Total 2216 2868 Balance 2216 2868 Weight 103 kg 102.8 kg General appearance: PRESENT: no acute distress, obese Head exam: PRESENT: normocephalic Mouth exam: PRESENT: moist Neck exam: ABSENT: JVD Respiratory exam: PRESENT: crackles - Occasional at lung base, wheezes - Inspiratory and expiratory wheezing appreciated. ABSENT: tachypnea, unlabored Cardiovascular exam: PRESENT: +S1, +S2. ABSENT: tachycardia GI/Abdominal exam: PRESENT: soft. ABSENT: tenderness Extremities exam: ABSENT: pedal edema, +1 edema Neurological exam: PRESENT: alert, awake, oriented to person, oriented to place , oriented to time, oriented to situation, CN II-XII grossly intact Psychiatric exam: PRESENT: appropriate affect Skin exam: PRESENT: dry, intact Results Laboratory Results: 04/17/18 05:10 04/19/18 04:33 04/19/18 04:33 Sodium 143.1 Potassium 4.0 Chloride 104 Carbon Dioxide 25 Anion Gap 14 BUN 69 H Creatinine 2.27 H Est GFR ( Amer) 26 L Est GFR (Non-Af Amer) 22 L Glucose 121 H Calcium 9.2 Phosphorus 3.8 Magnesium 1.7 Albumin 3.6 04/18/18 04/19/18 05:02 04:33 NT-Pro-B Natriuret Pep 1470 H 1470 H Impressions: Chest X-Ray 04/16/18 21:53 IMPRESSION: HEART ENLARGED WITHOUT FAILURE. NO OTHER SIGNIFICANT RADIOGRAPHIC FINDING IN THE CHEST. Qualifiers - * PATIENT BEING DISCHARGED WITH ANY OF THE FOLLOWING DIAGNOSIS: No
[2018-04-21] MEDS ORDERED: LEVOFLOXACIN 750 MG TABLET PO SCH (10:00)
== END 2018-04-19 11:10 | disposition home or self-care (01) | DRG 189 ==
LOC: ER 21:43 → EH 04-17 00:10 → 3W 04-17 01:14
PROVIDERS: ADMIT Internal Medicine; ATTEND Internal Medicine
DX: J96.21 Acute and chronic respiratory failure with hypoxia (principal); I50.33 Acute on chronic diastolic (congestive) heart failure; N17.9 Acute kidney failure, unspecified; I13.0 Hypertensive heart and chronic kidney disease with heart failure and stage 1 through stage 4 chronic kidney disease, or unspecified chronic kidney disease; N18.4 Chronic kidney disease, stage 4 (severe); J44.1 Chronic obstructive pulmonary disease with (acute) exacerbation; I27.20 Pulmonary hypertension, unspecified; G47.33 Obstructive sleep apnea (adult) (pediatric); E66.01 Morbid (severe) obesity due to excess calories; Z99.81 Dependence on supplemental oxygen; Z79.82 Long term (current) use of aspirin; Z79.51 Long term (current) use of inhaled steroids; Z79.899 Other long term (current) drug therapy
CPT/HCPCS: 36415; 71045; 80048; 80069; 82803; 83735; 83880; 84484; 85025; 93005; 93010; 94640; 94660; 94667; 94668; 94762; 94799; 99291; J1644; J1940; J1956; J3480; J3490; J7512; J7620

== ENCOUNTER 2018-05-17 10:03 | Emergency (ER) | payer OTHER, MEDICARE, MEDICAID ==
--- NOTE | 2018-05-17 10:49 | ER Document Report ---
ED Respiratory Problem - General Mode of Arrival: Ambulatory Information source: Patient TRAVEL OUTSIDE OF THE [place] IN LAST 30 DAYS: No <MEGHA VILLA - Last Filed: 05/17/18 12:25> <PHILLIP CANSECO - Last Filed: 05/20/18 15:20> - General Chief Complaint: Breathing Difficulty Stated Complaint: BREATHING DIFFICULTY Time Seen by Provider: 05/17/18 10:34 Notes: Patient is a 62-year-old female who presents to the emergency department today with complaints of wheezing and shortness of breath. Patient has a history of COPD and admits that she recently began smoking cigarettes again over the weekend. Patient is on 2 L at home O2 at all times. Patient denies any fevers. (MEGHA VILLA) - Related Data Allergies/Adverse Reactions: No Known Allergies Allergy (Verified 12/15/17 07:04) Past Medical History - General Information source: Patient - Social History Smoking Status: Current Some Day Smoker Cigarette use (# per day): Yes Frequency of alcohol use: None Drug Abuse: None Lives with: Family Family History: CVA, Hypertension Patient has suicidal ideation: No Patient has homicidal ideation: No - Past Medical History Cardiac Medical History: Reports: Hx Congestive Heart Failure, Hx Coronary Artery Disease, Hx Hypercholesterolemia, Hx Hypertension, Hx Heart Murmur Pulmonary Medical History: Reports: Hx Asthma, Hx Bronchitis, Hx COPD - O2 dependent - 2L, Hx Pneumonia Musculoskeltal Medical History: Reports Hx Gout Psychiatric Medical History: Reports: Hx Depression Past Surgical History: Reports: Hx Section - x 4, Hx Tubal Ligation - Immunizations Hx Diphtheria, Pertussis, Tetanus Vaccination: Yes Hx Pneumococcal Vaccination: 05/06/12 <MEGHA VILLA - Last Filed: 05/17/18 12:25> Review of Systems - Review of Systems Constitutional: denies: Fever EENT: No symptoms reported Cardiovascular: No symptoms reported Respiratory: See HPI, Short of breath, Wheezing Gastrointestinal: No symptoms reported Genitourinary: No symptoms reported Female Genitourinary: No symptoms reported Musculoskeletal: No symptoms reported Skin: No symptoms reported Hematologic/Lymphatic: No symptoms reported Neurological/Psychological: No symptoms reported -: Yes All other systems reviewed and negative <MEGHA VILLA - Last Filed: 05/17/18 12:25> Physical Exam <MEGHA VILLA - Last Filed: 05/17/18 12:25> <HARLEENPHILLIP - Last Filed: 05/20/18 15:20> - Vital signs Vitals: Resp BP Pulse Ox 24 H 180/97 H 100 05/17/18 10:17 05/17/18 10:17 05/17/18 10:17 - Notes Notes: Physical Exam: General: Alert, appears well. HEENT: Normocephalic. Atraumatic. PERRL. Extraocular movements intact. Oropharynx clear. Neck: Supple. Non-tender. Respiratory: No respiratory distress. Coarse wheezing bilaterally with good air movement. Cardiovascular: Regular rate and rhythm. Abdominal: Normal Inspection. Non-tender. No distension. Normal Bowel Sounds. Back: Non-tender. No deformity or step off. Extremities: Moves all four extremities. Upper extremities: Normal inspection. Normal ROM. Lower extremities: Normal inspection. No edema. Normal ROM. Neurological: Normal cognition. AAOx4. Normal speech. Psychological: Normal affect. Normal Mood. Skin: Warm. Dry. Normal color. (MEGHA VILLA) Course - Laboratory Result Diagrams: 05/17/18 11:40 05/17/18 11:40 <MEGHA VILLA - Last Filed: 05/17/18 12:25> - Laboratory Result Diagrams: 05/17/18 11:40 05/17/18 11:40 - EKG Interpretation by Ca EKG shows normal: Sinus rhythm Rate: Normal Rhythm: NSR When compared to previous EKG there are: No significant change <HARLEENPHILLIP - Last Filed: 05/20/18 15:20> - Re-evaluation Re-evalutation: 05/17/18 14:28 Labs within normal limits are trending within patient's baseline. Patient remained chest pain-free during the emergency department stay and never complained of any chest pain. Patient does have a history of COPD. After hour- long DuoNeb patient was resting comfortably and sleeping with her oxygen at 98 and 100%. Patient has home oxygen. Will place patient on 5 days of oral steroids, antibiotics, and instructed to use albuterol puffer. Return precautions were provided and patient feels comfortable for discharge. ( PHILLIP CANSECO) - Vital Signs Vital signs: Temp Pulse Resp BP Pulse Ox 97.9 F 24 H 172/82 H 97 05/17/18 11:00 05/17/18 15:01 05/17/18 15:01 05/17/18 14:01 - Laboratory Laboratory results interpreted by me: 05/17/18 05/17/18 11:40 11:40 Hgb 11.3 L Hct 34.2 L Monocytes % 1.4 L Eosinophils % 7.1 H Sodium 147.4 H Chloride 110 H BUN 42 H Creatinine 2.04 H Est GFR ( Amer) 30 L Est GFR (Non-Af Amer) 25 L Magnesium 2.4 H Alkaline Phosphatase 133 H Discharge <MEGHA VILLA - Last Filed: 05/17/18 12:25> <PHILLIP CANSECO - Last Filed: 05/20/18 15:20> - Discharge Clinical Impression: COPD exacerbation Condition: Good Disposition: HOME, SELF-CARE Instructions: Chronic Obstructive Lung Disease ([facility]) Additional Instructions: Please take all medications as prescribed. Please use albuterol puffer provided 4 puffs every 4 hours for the next 2 days while awake and then 2-4 puffs every 4 hours as needed thereafter Return to the emergency department for any worsening symptoms or any other concerns. Prescriptions: Albuterol Sulfate [Proair HFA] 1 - 2 puff IH Q4 PRN #1 inhaler PRN Reason: Levofloxacin [Levaquin 750 mg Tablet] 750 mg PO DAILY #5 tablet Prednisone [Deltasone 20 mg Tablet] 2 tab PO DAILY 5 Days #10 tablet Referrals: WENCESLAO PEGUERO DO [Primary Care Provider] - Follow up in 3-5 days (For re- evaluation) Scribe Attestation: 05/20/18 15:20 I personally performed the services described documentation, reviewed and edited the documentation which was dictated to describe my presence, and it accurately records my words and actions. (PHILLIP CANSECO) Scribe Documentation - Scribe Written by Joseibe:: Mayela Campbell, 05/17/2018 1231 acting as scribe for :: Harleen <MEGHA VILLA - Last Filed: 05/17/18 12:25>
--- NOTE | 2018-05-17 11:47 | RADIOLOGY REPORT (SQ) ---
EXAM DESCRIPTION: CHEST SINGLE VIEW COMPLETED DATE/TIME: 05/17/2018 11:24 am REASON FOR STUDY: sob COMPARISON: 04/16/2018 EXAM PARAMETERS: NUMBER OF VIEWS: One view. TECHNIQUE: Single frontal radiographic view of the chest acquired. RADIATION DOSE: NA LIMITATIONS: None. FINDINGS: LUNGS AND PLEURA: No opacities, masses or pneumothorax. No pleural effusion. MEDIASTINUM AND HILAR STRUCTURES: No masses. Contour normal. HEART AND VASCULAR STRUCTURES: The configuration of the heart mediastinal structures is unchanged BONES: No acute findings. HARDWARE: None in the chest. OTHER: No other significant finding. IMPRESSION: No significant interval change. No acute findings. Other findings as noted above. TECHNICAL DOCUMENTATION: JOB ID: [id number] [employer]- All Rights Reserved Reading location - IP/workstation name: [email or web address]
[2018-05-17] MEDS ORDERED: ALBUTEROL SULFATE 0.083% NEB 2.5 MG/3 ML AMPUL NEB ONE (11:52)
[2018-05-17] MEDS ORDERED: IPRATROPIUM BROMIDE 0.02% NEB 0.5 MG/2.5 ML AMPUL NEB ONE (11:53)
[2018-05-17 11:55] LABS: ABSOLUTE BASOPHILS # (AUTO) 0.1 10^3/uL (0.0-0.2); ABSOLUTE EOSINOPHILS # (AUTO) 0.6 10^3/uL (0.0-0.6); ABSOLUTE LYMPHOCYTES (AUTO) 1.1 10^3/uL (0.5-4.7); ABSOLUTE MONOCYTES (AUTO) 0.1 10^3/uL (0.1-1.4); ABSOLUTE NEUT (AUTO) 6.4 10^3/uL (1.7-8.2); BASOPHILS % (AUTO) 1.1 % (0-2); EOSINOPHILS % (AUTO) 7.1 % (0-6); HEMATOCRIT 34.2 % (36.0-47.0); HEMOGLOBIN 11.3 g/dL (12.0-15.5); LYMPHOCYTES % (AUTO) 13.4 % (13-45); MEAN CORPUSCULAR HEMOGLOBIN 29.2 pg (27.0-33.4); MEAN CORPUSCULAR HGB CONC 33.1 g/dL (32.0-36.0); MEAN CORPUSCULAR VOLUME 88 fl (80-97); MONOCYTES % (AUTO) 1.4 % (3-13); PLATELET COUNT 270 10^3/uL (150-450); RED BLOOD COUNT 3.87 10^6/uL (3.72-5.28); TOTAL CELLS COUNTED % (AUTO) 100 %; WHITE BLOOD COUNT 8.3 10^3/uL (4.0-10.5)
[2018-05-17 12:16] LABS: ALANINE AMINOTRANSFERASE 17 U/L (9-52); ALBUMIN 3.9 g/dL (3.5-5.0); ALKALINE PHOSPHATASE 133 U/L (38-126); ANION GAP 12 (5-19); ASPARTATE AMINO TRANSFERASE 16 U/L (14-36); BILIRUBIN,DIRECT 0.3 mg/dL (0.0-0.4); BILIRUBIN,TOTAL 0.3 mg/dL (0.2-1.3); BLOOD UREA NITROGEN 42 mg/dL (7-20); CALCIUM 9.9 mg/dL (8.4-10.2); CARBON DIOXIDE 25 mmol/L (22-30); CHLORIDE 110 mmol/L (98-107); GLUCOSE 96 mg/dL (75-110); POTASSIUM 4.1 mmol/L (3.6-5.0); SODIUM 147.4 mmol/L (137-145); TOTAL PROTEIN 7.4 g/dL (6.3-8.2)
[2018-05-17 12:36] LABS: TROPONIN I 0.034 ng/mL
[2018-05-17] MEDS ORDERED: LEVOFLOXACIN 750 MG TABLET PO ONE (14:33)
[2018-05-17] MEDS ORDERED: PREDNISONE 20 MG TABLET PO ONE (14:33)
[2018-05-17 15:17] VITALS: BP 172/82
--- NOTE | 2018-05-18 00:26 | EKG REPORT ---
SEVERITY:- ABNORMAL ECG - SINUS RHYTHM PROBABLE LEFT ATRIAL ABNORMALITY NONSPECIFIC INTRAVENTRICULAR CONDUCTION DELAY LEFT VENTRICULAR HYPERTROPHY : Confirmed by: Leana Chavez MD 18-May-2018 00:24:57
== END 2018-05-17 15:29 | disposition home or self-care (01) ==
LOC: ER 10:03
DX: J44.1 Chronic obstructive pulmonary disease with (acute) exacerbation (principal); Z99.81 Dependence on supplemental oxygen; R06.02 Shortness of breath; F17.210 Nicotine dependence, cigarettes, uncomplicated; I25.10 Atherosclerotic heart disease of native coronary artery without angina pectoris; I10 Essential (primary) hypertension
CPT/HCPCS: 93005; 94640; 99285; 36415; 83735; 85025; 80053; 84484; 83880; 71045; 93010; J7512; J3490

== ENCOUNTER 2018-05-25 23:31 | Inpatient (IN) | payer OTHER, MEDICARE, MEDICAID ==
[2018-05-25] MEDS ORDERED: MAGNESIUM SULFATE/D5W 1 GM/100 ML RTUPB IV ONE (23:47)
[2018-05-25] MEDS ORDERED: METHYLPREDNISOLONE INJ 125 MG/2 ML SDV IV ONE (23:47)
--- NOTE | 2018-05-25 23:54 | ER Document Report ---
ED General - General Chief Complaint: Respiratory Distress Stated Complaint: RESPIRATORY DISTRESS Time Seen by Provider: 05/25/18 23:39 Notes: Patient is a 62-year-old female presents with complaint of difficulty breathing. She has a history of COPD. She says she has had difficulty breathing started earlier today and got much worse. Paramedics said that getting worse if she got an argument with her family member at the house. She was given 1 g of magnesium in a months. She is given DuoNeb treatments. She is feeling some better with those. She still has some distress. She denies any fevers. She denies any chest pain. She says she does have some mild epigastric pain. She has no other complaints at this time. TRAVEL OUTSIDE OF THE [place] IN LAST 30 DAYS: No - Related Data Allergies/Adverse Reactions: No Known Allergies Allergy (Verified 12/15/17 07:04) Past Medical History - Social History Smoking Status: Current Every Day Smoker Chew tobacco use (# tins/day): No Frequency of alcohol use: None Drug Abuse: None Family History: CVA, Hypertension Patient has suicidal ideation: No Patient has homicidal ideation: No - Past Medical History Cardiac Medical History: Reports: Hx Congestive Heart Failure, Hx Coronary Artery Disease, Hx Hypercholesterolemia, Hx Hypertension, Hx Heart Murmur Pulmonary Medical History: Reports: Hx Asthma, Hx Bronchitis, Hx COPD - O2 dependent - 2L, Hx Pneumonia Denies: Hx Tuberculosis Renal/ Medical History: Denies: Hx Peritoneal Dialysis GI Medical History: Denies: Hx Cirrhosis, Hx Crohn's Disease, Hx Diverticulitis , Hx Gastroesophageal Reflux Disease, Hx Hepatitis, Hx Hiatal Hernia Musculoskeltal Medical History: Denies Hx Arthritis, Denies Hx Fibromyalgia, Reports Hx Gout Skin Medical History: Denies Hx Eczema, Denies Hx Psoriasis Psychiatric Medical History: Reports: Hx Depression Traumatic Medical History: Denies: Hx Gunshot Wound, Hx Pneumothorax, Hx Traumatic Brain Injury Infectious Medical History: Denies: Hx Hepatitis Past Surgical History: Reports: Hx Section - x 4, Hx Tubal Ligation - Immunizations Hx Diphtheria, Pertussis, Tetanus Vaccination: Yes Hx Pneumococcal Vaccination: 05/06/12 Review of Systems - Review of Systems Notes: My Normal Review Basic REVIEW OF SYSTEMS: CONSTITUTIONAL : Denies fever, chills, or sweats. Denies recent illness. EENT: Denies eye, ear, throat, or mouth pain or symptoms. Denies nasal or sinus congestion. CARDIOVASCULAR: Denies chest pain. RESPIRATORY: Diffuse wheezing. Difficulty breathing. GASTROINTESTINAL: Denies abdominal pain. Denies nausea, vomiting, or diarrhea. Denies constipation. Last BM: GENITOURINARY: Denies difficulty urinating, painful urination, burning, frequency, or blood in urine. MUSCULOSKELETAL: Denies neck or back pain or joint pain or swelling. SKIN: Denies rash or skin lesions. NEUROLOGICAL: Denies altered mental status or loss of consciousness. Denies headache. Denies weakness or paralysis or loss of use of either side. Denies problems with gait or speech. Denies sensory or motor loss. ALL OTHER SYSTEMS REVIEWED AND NEGATIVE. Physical Exam - Vital signs Vitals: Temp Resp BP Pulse Ox 97.6 F 30 H 150/113 H 94 05/25/18 23:34 05/25/18 23:34 05/25/18 23:34 05/25/18 23:34 - Notes Notes: General Appearance: Well nourished, alert, cooperative, moderate acute distress , no obvious discomfort. Vitals: reviewed, See vital signs table. Head: no swelling or tenderness to the head Eyes: PERRL, EOMI, Conjuctiva clear Mouth: No decreasd moisture Neck: Supple, no neck tenderness, No thyromegaly Lungs: Diffuse wheezing, No rales, No rhonci, mild accessory muscle use, failure air exchange bilaterally. Heart: Normal rate, Regular rythm, No murmur, no rub Abdomen: Normal BS, soft, No rigidity, No abdominal tenderness, No guarding, no rebound, Extremities: strength 5/5 in all extremities, good pulses in all extremities, no swelling or tenderness in the extremities, no edema. Skin: warm, dry, appropriate color, no rash Neuro: speech clear, oriented x 3, normal affect, responds appropriately to questions. Course - Re-evaluation Re-evalutation: 05/26/18 00:07 On reevaluation patient is now on BiPAP and she is doing much improved. She still has some wheezing and rhonchi throughout lung tan however she no longer is tachypneic and is much more comfortable and patient says she feels better now on the BiPAP. 05/26/18 02:44 Patient continues to on the BiPAP. Still has some wheezing. Avoid another breathing treatment. Chest x-ray does not show evidence of pneumonia. She does have indeterminate troponin which is consistent with her previous labs. She has chronic renal sufficiency which most likely results in the determine troponin. She is not having chest pain. I did speak with the hospitalist, Dr. Miller, who agrees to admit the patient. Dictation of this chart was performed using voice recognition software; therefore, there may be some unintended grammatical errors. - Vital Signs Vital signs: Temp Pulse Resp BP Pulse Ox 97.6 F 20 149/90 H 96 05/25/18 23:34 05/26/18 02:01 05/26/18 02:01 05/26/18 02:01 - Laboratory Result Diagrams: 05/25/18 23:40 05/25/18 23:40 Laboratory results interpreted by me: 05/25/18 05/25/18 05/25/18 23:40 23:40 23:40 WBC 11.8 H Hgb 10.8 L Hct 32.8 L VBG pH 7.23 L Sodium 146.4 H Chloride 109 H BUN 45 H Creatinine 2.80 H Est GFR ( Amer) 21 L Est GFR (Non-Af Amer) 17 L Glucose 142 H - EKG Interpretation by Me Additional EKG results interpreted by me: 05/25/18 23:54 EKG is reviewed and interpreted by me. EKG shows sinus rhythm with rate of 90 bpm. Patient has mild concave up ST segment elevation in anterior precordial leads which are unchanged comparison to old EKG from May 17, 2018. [place] interval is within normal range. QRS duration QTc intervals are slightly prolonged. Discharge - Discharge Clinical Impression: Acute dyspnea, COPD with exacerbation, CKD (chronic kidney disease), stage IV, Elevated troponin Disposition: ADMITTED OBSERVATION Admitting Provider: Hospitalist Unit Admitted: Telemetry
[2018-05-25 23:55] LABS: VENOUS BLOOD BASE EXCESS -5.3 mmol/L; VENOUS BLOOD PCO2 55.7 mmHg (35-63); VENOUS BLOOD PH 7.23 (7.30-7.42)
[2018-05-25 23:57] LABS: ABSOLUTE BASOPHILS # (AUTO) 0.1 10^3/uL (0.0-0.2); ABSOLUTE EOSINOPHILS # (AUTO) 0.5 10^3/uL (0.0-0.6); ABSOLUTE LYMPHOCYTES (AUTO) 2.8 10^3/uL (0.5-4.7); ABSOLUTE MONOCYTES (AUTO) 0.9 10^3/uL (0.1-1.4); ABSOLUTE NEUT (AUTO) 7.5 10^3/uL (1.7-8.2); BASOPHILS % (AUTO) 0.8 % (0-2); EOSINOPHILS % (AUTO) 4.4 % (0-6); HEMATOCRIT 32.8 % (36.0-47.0); HEMOGLOBIN 10.8 g/dL (12.0-15.5); LYMPHOCYTES % (AUTO) 23.8 % (13-45); MEAN CORPUSCULAR HEMOGLOBIN 28.9 pg (27.0-33.4); MEAN CORPUSCULAR HGB CONC 33.1 g/dL (32.0-36.0); MEAN CORPUSCULAR VOLUME 87 fl (80-97); MONOCYTES % (AUTO) 7.9 % (3-13); PLATELET COUNT 281 10^3/uL (150-450); RED BLOOD COUNT 3.75 10^6/uL (3.72-5.28); RED CELL DISTRIBUTION WIDTH 13.4 % (11.5-14.0); SEGMENTED NEUTROPHILS % (AUTO) 63.1 % (42-78); TOTAL CELLS COUNTED % (AUTO) 100 %; WHITE BLOOD COUNT 11.8 10^3/uL (4.0-10.5)
[2018-05-26 00:21] LABS: ALANINE AMINOTRANSFERASE 18 U/L (9-52); ALBUMIN 4.1 g/dL (3.5-5.0); ALKALINE PHOSPHATASE 116 U/L (38-126); ANION GAP 11 (5-19); ASPARTATE AMINO TRANSFERASE 23 U/L (14-36); BILIRUBIN,DIRECT 0.3 mg/dL (0.0-0.4); BILIRUBIN,TOTAL 0.3 mg/dL (0.2-1.3); BLOOD UREA NITROGEN 45 mg/dL (7-20); CALCIUM 9.3 mg/dL (8.4-10.2); CARBON DIOXIDE 26 mmol/L (22-30); CHLORIDE 109 mmol/L (98-107); GLUCOSE 142 mg/dL (75-110); POTASSIUM 3.8 mmol/L (3.6-5.0); SODIUM 146.4 mmol/L (137-145)
--- NOTE | 2018-05-26 00:34 | RADIOLOGY REPORT (SQ) ---
EXAM DESCRIPTION: XR CHEST 1 VIEW COMPLETED DATE/TME: 05/25/2018 23:40 CLINICAL HISTORY: 62 years Female, dyspnea COMPARISON: 6.28.18 NUMBER OF VIEWS/TECHNIQUE: 1/AP FINDINGS: Adequate lung volume, prominent interstitium, normal cardiac silhouette, atherosclerosis, and intact bony thorax. IMPRESSION: No acute cardiopulmonary findings.
[2018-05-26] MEDS ORDERED: CHLORPHENIRAMINE MALEATE 4 MG TABLET PO ONE (02:09)
[2018-05-26] MEDS ORDERED: HYDRALAZINE HCL INJ/PF 20 MG/1 ML SDV IV PRN (02:09)
[2018-05-26] MEDS ORDERED: ACETAMINOPHEN 325 MG TABLET PO PRN (02:10)
[2018-05-26] MEDS ORDERED: IPRATROPIUM/ALBUTEROL 0.5-2.5 MG/3 ML AMPUL NEB PRN (02:10)
[2018-05-26] MEDS ORDERED: GUAIFENESIN SYRP 200 MG/10 ML UDC PO PRN (02:10)
[2018-05-26] MEDS ORDERED: PREDNISONE 20 MG TABLET PO ONE (02:30)
[2018-05-26] MEDS ORDERED: FLUTICASONE NASAL SPRAY 50 MCG/SPRY 120 SPRAY/16 GM NASL ONE (02:30)
[2018-05-26] MEDS ORDERED: ALBUTEROL SULFATE 0.083% NEB 2.5 MG/3 ML AMPUL NEB ONE (02:45)
[2018-05-26] MEDS ORDERED: CARVEDILOL 12.5 MG TABLET PO ONE (03:00)
[2018-05-26] MEDS ORDERED: CHLORPHENIRAMINE MALEATE 4 MG TABLET ONE (03:07)
[2018-05-26] MEDS ORDERED: FLUTICASONE NASAL SPRAY 50 MCG/SPRY 120 SPRAY/16 GM ONE (03:07)
[2018-05-26] MEDS ORDERED: HYDRALAZINE HCL INJ/PF 20 MG/1 ML SDV IV ONE (03:59)
[2018-05-26] MEDS ORDERED: NITROGLYCERIN 2% OINTMENT 1 GM PACKET TP ONE (04:16)
[2018-05-26 04:36] LABS: CREATINE KINASE MB 2.48 ng/mL (<4.55)
[2018-05-26 04:47] LABS: TROPONIN I 0.108 ng/mL
[2018-05-26] MEDS ORDERED: ASPIRIN 81 MG TABLET, CHEWABLE PO ONE (04:58)
[2018-05-26] MEDS ORDERED: HEPARIN SODIUM,PORCINE/D5W 25,000 UNIT/250 ML RTUINJ IV PRN (04:58)
[2018-05-26] MEDS ORDERED: HEPARIN SOD (PORCINE) 1,000 UNIT/ML 10 ML VIAL IV ONE (04:58)
[2018-05-26] MEDS ORDERED: HEPARIN SOD (PORCINE) 5,000 UNIT/ML 1 ML SYRINGE ONE (05:05)
--- NOTE | 2018-05-26 05:11 | PDOC H&P ---
History of Present Illness Admission Date/PCP: 05/26/18 02:27 WENCESLAO PEGUERO DO Patient complains of: Shortness of breath History of Present Illness: BOOM TODD is a 62 year old female with a past medical history of chronic diastolic heart failure, poorly controlled hypertension, obstructive sleep apnea, moderate mitral regurgitation, oxygen dependent COPD, morbid obesity and stage III chronic kidney disease. Patient presents with 12 hours of exceptional shortness of breath orthopnea, coughing clear sputum, denying chest pain, fever chills nausea vomiting. In the emergency room she is found to have a blood pressure of 205/123, tachypnea, dyspnea, she is started on BiPAP and referred to the hospitalist for admission. Patient is unclear of her home medications. Past Medical History Cardiac Medical History: Reports: Congestive Heart Failure, Coronary Artery Disease, Hyperlipidema, Hypertension, Heart Murmur Pulmonary Medical History: Reports: Asthma, Bronchitis, Chronic Obstructive Pulmonary Disease (COPD) - O2 dependent - 2L, Pneumonia Denies: Tuberculosis Renal/ Medical History: Reports: Chronic Kidney Disease GI Medical History: Denies: Cirrhosis, Crohn's Disease, Diverticulitis, Gastroesophageal Reflux Disease, Hepatitis, Hiatal Hernia Musculoskeltal Medical History: Reports: Gout Denies: Arthritis, Fibromyalgia Skin Medical History: Denies: Eczema, Psoriasis Psychiatric Medical History: Reports: Depression Traumatic Medical History: Denies: Gunshot Wound, Pneumothorax, Traumatic Brain Injury Hematology: Denies: Hemophilia, Sickle Cell Disease, Bleeding Tendencies Past Surgical History Past Surgical History: Reports: Section - x 4, Tubal Ligation Social History Information Source: Patient Smoking Status: Current Every Day Smoker Frequency of Alcohol Use: None Hx Recreational Drug Use: No Drugs: None Hx Prescription Drug Abuse: No - Advance Directive Resuscitation Status: Full Code Family History Family History: CVA, Hypertension Parental Family History Reviewed: Yes Children Family History Reviewed: Yes Sibling(s) Family History Reviewed.: Yes Medication/Allergy Home Medications: Albuterol Sulfate [Proair HFA Inhalation Aerosol 8.5 gm MDI] 2 puff IH BID 12/15 Amlodipine Besylate [Norvasc 10 mg Tablet] 10 mg PO DAILY 12/15/17 Aspirin [Aspirin EC] 81 mg PO DAILY 12/15/17 Budesonide/Formoterol Fumarate [Symbicort 160-4.5 Mcg Inhaler] 2 puff IH Q12 Carvedilol [Coreg 12.5 mg Tablet] 12.5 mg PO Q12 12/15/17 Cyanocobalamin (Vitamin B-12) [Vitamin B-12 100 mcg Tablet] 100 mcg PO DAILY Ferrous Sulfate [Iron] 325 mg PO DAILY 12/15/17 Gabapentin [Neurontin 400 mg Capsule] 400 mg PO Q12 12/15/17 Lisinopril [Prinivil 5 mg Tablet] 5 mg PO DAILY 12/15/17 Tiotropium [place] [Spiriva Handihaler 18 mcg/dose (30 Dose)] 1 cap IH DAILY Tramadol HCl [Ultram 50 mg Tablet] 50 mg PO Q12HP PRN 12/15/17 Azithromycin [Zithromax 250 mg Tablet] 250 mg PO DAILY 3 Days #3 tablet Furosemide [Lasix 20 mg Tablet] 40 mg PO DAILY #0 04/19/18 Prednisone [Deltasone 20 mg Tablet] 40 mg PO DAILY 3 Days #3 tablet 04/19/18 Albuterol Sulfate [Proair HFA] 1 - 2 puff IH Q4 PRN #1 inhaler 05/17/18 Levofloxacin [Levaquin 750 mg Tablet] 750 mg PO DAILY #5 tablet 05/17/18 Prednisone [Deltasone 20 mg Tablet] 2 tab PO DAILY 5 Days #10 tablet 05/17/18 Allergies/Adverse Reactions: No Known Allergies Allergy (Verified 12/15/17 07:04) Review of Systems ROS unobtainable: Other - Severe tachypnea Physical Exam Vital Signs: Temp Pulse Resp BP Pulse Ox 97.3 F 19 157/88 H 100 05/26/18 02:45 05/26/18 04:02 05/26/18 04:02 05/26/18 04:28 General appearance: PRESENT: cooperative, disheveled, morbidly obese, severe distress Head exam: PRESENT: atraumatic, normocephalic Eye exam: PRESENT: conjunctiva pink, EOMI, PERRLA. ABSENT: scleral icterus Ear exam: PRESENT: normal external ear exam Mouth exam: PRESENT: moist, tongue midline Neck exam: PRESENT: JVD. ABSENT: carotid bruit, lymphadenopathy, thyromegaly Respiratory exam: PRESENT: accessory muscle use, crackles, decreased breath sounds, retraction, symmetrical, tachypnea. ABSENT: chest wall tenderness, unlabored Cardiovascular exam: PRESENT: gallop, RRR. ABSENT: diastolic murmur, rubs, systolic murmur Vascular exam: PRESENT: normal capillary refill GI/Abdominal exam: PRESENT: normal bowel sounds, soft. ABSENT: distended, guarding, mass, organolmegaly, rebound, tenderness Rectal exam: PRESENT: deferred Extremities exam: PRESENT: +1 edema Neurological exam: PRESENT: alert, awake, oriented to person, oriented to place , oriented to time, oriented to situation, CN II-XII grossly intact. ABSENT: motor sensory deficit Psychiatric exam: PRESENT: appropriate affect, normal mood. ABSENT: homicidal ideation, suicidal ideation Skin exam: PRESENT: dry, intact, warm. ABSENT: cyanosis, rash Results Laboratory Results: 05/26/18 05/26/18 03:35 03:35 Creatine Kinase 114 CK-MB (CK-2) 2.48 Troponin I 0.108 Impressions: Chest X-Ray 05/25/18 23:40 IMPRESSION: No acute cardiopulmonary findings. Assessment & Plan - Diagnosis (1) Hypertensive urgency Is this a current diagnosis for this admission?: Yes Plan: Unclear compliance, nitroglycerin, hydralazine and Lasix initiated. (2) Diastolic heart failure Is this a current diagnosis for this admission?: Yes Plan: Acute on chronic decompensated, unclear compliance. Education, Lasix, nitroglycerin, hydralazine, BiPAP (3) CKD (chronic kidney disease), stage IV Is this a current diagnosis for this admission?: Yes Plan: Avoid nephrotoxic meds and doses. At baseline (4) COPD with exacerbation Is this a current diagnosis for this admission?: Yes Plan: Albuterol, Atrovent, incentive spirometry and BiPAP. (5) Elevated troponin Is this a current diagnosis for this admission?: Yes Plan: Likely secondary to hypertensive emergency. Aspirin, CEM inhibitor, beta- avila as tolerated, heparin empirically initiated. Follow-up serial cardiac enzymes and cardiology consult. - Time Time Spent: 50 to 70 Minutes - Inpatient Certification Medical Necessity: Need Close Monitoring Due to Risk of Patient Decompensation
[2018-05-26 05:14] LABS: URINE AMPHETAMINES SCREEN NEGATIVE; URINE BARBITURATES SCREEN NEGATIVE; URINE BENZODIAZEPINES SCREEN NEGATIVE; URINE MARIJUANA (THC) SCREEN NEGATIVE; URINE METHADONE SCREEN NEGATIVE; URINE PHENCYCLIDINE SCREEN NEGATIVE
[2018-05-26] MEDS: LANSOPRAZOLE 30 MG TAB.RAP.DR PO SCH ×2 (05:15→16:10)
[2018-05-26 05:29] LABS: ABSOLUTE BASOPHILS # (AUTO) 0.1 10^3/uL (0.0-0.2); ABSOLUTE LYMPHOCYTES (AUTO) 0.8 10^3/uL (0.5-4.7); ABSOLUTE MONOCYTES (AUTO) 0.1 10^3/uL (0.1-1.4); ABSOLUTE NEUT (AUTO) 13.2 10^3/uL (1.7-8.2); BASOPHILS % (AUTO) 0.4 % (0-2); EOSINOPHILS % (AUTO) 0.1 % (0-6); HEMATOCRIT 32.7 % (36.0-47.0); HEMOGLOBIN 10.7 g/dL (12.0-15.5); LYMPHOCYTES % (AUTO) 5.9 % (13-45); MEAN CORPUSCULAR HEMOGLOBIN 28.7 pg (27.0-33.4); MEAN CORPUSCULAR HGB CONC 32.8 g/dL (32.0-36.0); MEAN CORPUSCULAR VOLUME 88 fl (80-97); MONOCYTES % (AUTO) 0.5 % (3-13); PLATELET COUNT 253 10^3/uL (150-450); RED BLOOD COUNT 3.74 10^6/uL (3.72-5.28); RED CELL DISTRIBUTION WIDTH 13.2 % (11.5-14.0); SEGMENTED NEUTROPHILS % (AUTO) 93.1 % (42-78); TOTAL CELLS COUNTED % (AUTO) 100 %; WHITE BLOOD COUNT 14.1 10^3/uL (4.0-10.5)
[2018-05-26 05:34] LABS: INTERNATIONAL RATION (INR) 1.01; PROTHROMBIN TIME 13.8 SEC (11.4-15.4)
[2018-05-26 05:35] LABS: PARTIAL THROMBOPLASTIN TIME 27.7 SEC (23.5-35.8)
[2018-05-26 05:35] LABS: URINE COCAINE SCREEN UNCONFIRMED POSITIVE
[2018-05-26 06:00] LABS: APPEARANCE,URINE CLEAR; BILIRUBIN,URINE NEGATIVE (NEGATIVE); COLOR,URINE YELLOW; GLUCOSE, URINE 50 mg/dL (NEGATIVE); KETONES,URINE NEGATIVE (NEGATIVE); LEUKOCYTE ESTERASE,URINE NEGATIVE (NEGATIVE); NITRITE,URINE NEGATIVE (NEGATIVE); PROTEIN,URINE >=500 mg/dL (NEGATIVE); URINE SPECIFIC GRAVITY 1.011; UROBILINOGEN,URINE NEGATIVE mg/dL (<2.0)
[2018-05-26] MEDS ORDERED: HEPARIN SOD (PORCINE) 5,000 UNIT/ML 1 ML SYRINGE SUBCUT SCH (06:00)
[2018-05-26] MEDS ORDERED: DIAZEPAM 2 MG TABLET ONE (07:06)
[2018-05-26] MEDS ORDERED: HEPARIN SOD (PORCINE) 1,000 UNIT/ML 10 ML VIAL IV PRN (07:59)
[2018-05-26] MEDS: IPRATROPIUM/ALBUTEROL 0.5-2.5 MG/3 ML AMPUL NEB SCH ×3 (08:14→19:59)
[2018-05-26] MEDS: DIAZEPAM 2 MG TABLET PO SCH ×3 (08:16→17:33)
[2018-05-26] MEDS ORDERED: CARVEDILOL 12.5 MG TABLET PO SCH (10:00)
[2018-05-26] MEDS: AMLODIPINE BESYLATE 10 MG TABLET PO SCH (10:00)
[2018-05-26] MEDS: LEVOFLOXACIN 750 MG/D5W RTU 750 MG/150 ML RTUPB IV SCH (10:00)
[2018-05-26] MEDS: ASPIRIN 81 MG TABLET, ENT COATED PO SCH (10:01)
[2018-05-26] MEDS: LISINOPRIL 5 MG TABLET PO SCH (10:01)
[2018-05-26] MEDS: PREDNISONE 20 MG TABLET PO SCH ×2 (10:01→17:33)
[2018-05-26] MEDS: GABAPENTIN 400 MG CAPSULE PO SCH ×2 (10:01→22:52)
[2018-05-26] MEDS: FLUTICASONE NASAL SPRAY 50 MCG/SPRY 120 SPRAY/16 GM NASL SCH ×2 (10:08→22:52)
--- NOTE | 2018-05-26 10:40 | EKG REPORT ---
SEVERITY:- ABNORMAL ECG - SINUS RHYTHM PROBABLE LEFT ATRIAL ABNORMALITY LVH WITH IVCD AND SECONDARY REPOL ABNRM : Confirmed by: Everardo Parson MD 26-May-2018 10:39:59
--- NOTE | 2018-05-26 10:40 | EKG REPORT ---
SEVERITY:- ABNORMAL ECG - SINUS RHYTHM NONSPECIFIC INTRAVENTRICULAR CONDUCTION DELAY LEFT VENTRICULAR HYPERTROPHY : Confirmed by: Everardo Parson MD 26-May-2018 10:39:39
[2018-05-26 11:53] LABS: CREATINE KINASE MB 2.77 ng/mL (<4.55); TROPONIN I 0.099 ng/mL
--- NOTE | 2018-05-26 12:04 | Progress Note ---
Provider Note Provider Note: This is 60 years old black male patient admitted this morning for shortness of breath secondary to COPD exacerbation. Patient has multiple other comorbidities. Accepted the patient and I will be his primary attending physician.
[2018-05-26] MEDS: HEPARIN SOD (PORCINE) 5,000 UNIT/ML 1 ML SYRINGE SUBCUT SCH ×2 (13:51→22:53)
[2018-05-26 16:44] LABS: CREATINE KINASE MB 2.54 ng/mL (<4.55); TROPONIN I 0.08 ng/mL
[2018-05-27] MEDS: IPRATROPIUM/ALBUTEROL 0.5-2.5 MG/3 ML AMPUL NEB SCH ×4 (02:08→19:55)
[2018-05-27 05:02] LABS: ABSOLUTE LYMPHOCYTES (AUTO) 1.4 10^3/uL (0.5-4.7); ABSOLUTE MONOCYTES (AUTO) 0.4 10^3/uL (0.1-1.4); ABSOLUTE NEUT (AUTO) 9.6 10^3/uL (1.7-8.2); BASOPHILS % (AUTO) 0.4 % (0-2); HEMATOCRIT 30.1 % (36.0-47.0); HEMOGLOBIN 9.9 g/dL (12.0-15.5); MEAN CORPUSCULAR HEMOGLOBIN 28.7 pg (27.0-33.4); MEAN CORPUSCULAR HGB CONC 32.9 g/dL (32.0-36.0); MEAN CORPUSCULAR VOLUME 87 fl (80-97); MONOCYTES % (AUTO) 3.1 % (3-13); PLATELET COUNT 234 10^3/uL (150-450); RED BLOOD COUNT 3.44 10^6/uL (3.72-5.28); RED CELL DISTRIBUTION WIDTH 13.1 % (11.5-14.0); SEGMENTED NEUTROPHILS % (AUTO) 84.5 % (42-78); TOTAL CELLS COUNTED % (AUTO) 100 %; WHITE BLOOD COUNT 11.3 10^3/uL (4.0-10.5)
[2018-05-27 05:15] LABS: ANION GAP 14 (5-19); BLOOD UREA NITROGEN 63 mg/dL (7-20); CALCIUM 9.3 mg/dL (8.4-10.2); CARBON DIOXIDE 23 mmol/L (22-30); CHLORIDE 108 mmol/L (98-107); GLUCOSE 120 mg/dL (75-110); POTASSIUM 4.4 mmol/L (3.6-5.0); SODIUM 144.7 mmol/L (137-145)
[2018-05-27] MEDS: LANSOPRAZOLE 30 MG TAB.RAP.DR PO SCH ×2 (05:55→16:40)
[2018-05-27] MEDS: HEPARIN SOD (PORCINE) 5,000 UNIT/ML 1 ML SYRINGE SUBCUT SCH ×3 (05:56→21:22)
[2018-05-27] MEDS: PREDNISONE 20 MG TABLET PO SCH ×2 (10:50→17:35)
[2018-05-27] MEDS: ASPIRIN 81 MG TABLET, ENT COATED PO SCH (10:50)
[2018-05-27] MEDS: GABAPENTIN 400 MG CAPSULE PO SCH ×2 (10:51→21:22)
[2018-05-27] MEDS: LISINOPRIL 5 MG TABLET PO SCH (10:51)
[2018-05-27] MEDS: AMLODIPINE BESYLATE 10 MG TABLET PO SCH (10:51)
[2018-05-27] MEDS: LEVOFLOXACIN 750 MG/D5W RTU 750 MG/150 ML RTUPB IV SCH (10:52)
[2018-05-27] MEDS: FLUTICASONE NASAL SPRAY 50 MCG/SPRY 120 SPRAY/16 GM NASL SCH ×2 (10:53→21:22)
--- NOTE | 2018-05-27 15:26 | PDOC PROGRESS REPORT ---
Subjective Progress Note for:: 05/27/18 Subjective:: This is 62 years old black female patient with multiple comorbidities presented with chief complaint of shortness of breath secondary to COPD exacerbation. Patient admitted and started on supplemental oxygen, prednisone 20 mg p.o. twice daily, and bronchodilators. Patient reports is feeling better her shortness of breath was relatively subsiding. At admission patient also found to have hypertensive urgency with blood pressure of 205/123 and after treatment this morning it gets better with blood pressure of 169/78. Reason For Visit: COPD EXACERBATION ACUTE BRONCHITITIS MORBID Physical Exam Vital Signs: Temp Pulse Resp BP Pulse Ox 98.3 F 75 16 169/78 H 98 05/27/18 11:25 05/27/18 14:00 05/27/18 13:53 05/27/18 11:25 05/27/18 13:53 Intake & Output 05/26/18 05/27/18 05/28/18 06:59 06:59 06:59 Intake Total 243 1999 Balance 243 1999 Weight 101.5 kg 97.4 kg General appearance: PRESENT: no acute distress Head exam: PRESENT: atraumatic Mouth exam: PRESENT: moist Respiratory exam: PRESENT: clear to auscultation brandon, wheezes. ABSENT: rales, rhonchi Cardiovascular exam: PRESENT: RRR. ABSENT: diastolic murmur, rubs, systolic murmur GI/Abdominal exam: PRESENT: normal bowel sounds, soft. ABSENT: distended, guarding, mass, organolmegaly, rebound, tenderness Neurological exam: PRESENT: alert, awake, oriented to time, oriented to situation Psychiatric exam: PRESENT: appropriate affect, normal mood. ABSENT: homicidal ideation, suicidal ideation Results Laboratory Results: 05/27/18 04:23 05/27/18 04:23 05/27/18 05/27/18 04:23 04:23 WBC 11.3 H RBC 3.44 L Hgb 9.9 L Hct 30.1 L MCV 87 MCH 28.7 MCHC 32.9 RDW 13.1 Plt Count 234 Seg Neutrophils % 84.5 H Lymphocytes % 12.0 L Monocytes % 3.1 Eosinophils % 0.0 Basophils % 0.4 Absolute Neutrophils 9.6 H Absolute Lymphocytes 1.4 Absolute Monocytes 0.4 Absolute Eosinophils 0.0 Absolute Basophils 0.0 Sodium 144.7 Potassium 4.4 Chloride 108 H Carbon Dioxide 23 Anion Gap 14 BUN 63 H Creatinine 2.91 H Est GFR ( Amer) 20 L Est GFR (Non-Af Amer) 16 L Glucose 120 H Calcium 9.3 05/26/18 05/26/18 05/26/18 03:35 03:35 10:22 Creatine Kinase 114 110 CK-MB (CK-2) 2.48 Troponin I 0.108 05/26/18 05/26/18 05/26/18 10:22 15:38 15:38 Creatine Kinase 84 CK-MB (CK-2) 2.77 2.54 Troponin I 0.099 0.080 Impressions: Chest X-Ray 05/25/18 23:40 IMPRESSION: No acute cardiopulmonary findings. Assessment & Plan - Diagnosis (1) COPD exacerbation Is this a current diagnosis for this admission?: Yes Plan: Continue current regimen (2) Hypertensive urgency Is this a current diagnosis for this admission?: Yes Plan: Resolved (3) Elevated troponin Is this a current diagnosis for this admission?: Yes Plan: Her troponin is trending down. And this morning evaluated by Dr. Chavez and he states the mildly elevated troponin is not a concern. (4) Substance abuse Is this a current diagnosis for this admission?: Yes Plan: ([employer] results reported as positive for cocaine. Patient advised to stay clean. (5) Coronary artery disease Qualifiers: Coronary Disease-Associated Artery/Lesion type: [place] artery Is this a current diagnosis for this admission?: Yes Plan: No angina. (6) Chronic diastolic heart failure Is this a current diagnosis for this admission?: Yes Plan: Compensated. - Time Time Spent with patient: 25-34 minutes
[2018-05-27] MEDS: HYDRALAZINE HCL 50 MG TABLET PO SCH (21:22)
--- NOTE | 2018-05-27 22:20 | PROGRESS NOTE E ---
Progress Note NAME: BOOM TODD : 1955 AGE: 62Y DATE: 05/27/2018 ROOM: 535 SUBJECTIVE: The patient states that she feels only slightly better. She still has some wheezing. She has orthopnea but no PND. There is no chest pain, tightness or discomfort. Her leg edema is much improved. She denies any palpitations or syncope. There is no arrhythmia seen on the monitor. OBJECTIVE: GENERAL: On examination, the patient is moderately obese, at present in no major distress. She is well groomed. VITAL SIGNS: Her temperature is 98.3 degrees Fahrenheit, pulse is 76 beats per minute, blood pressure 169/78, respirations are 20 per minute, O2 saturations are 100% on 3 L nasal cannula. HEENT: Head is atraumatic, normocephalic. Eyes: Pupils are equal, round, regular, reactive to light and accommodation. Extraocular movements are normal. There is no conjunctival pallor. There is no scleral icterus. ENT is negative. NECK: Supple. There is mild JVD present. Carotids are equal. There is no bruit. There is no lymphadenopathy. There is no goiter. Trachea central. LUNGS: Show diminished air entry, prolonged expiration with scattered rhonchi and wheezing bilaterally. There are no rales of CHF. HEART: S1 and S2 are heard. There is no S3 gallop. There is no S4 gallop. There is a systolic murmur in the left sternal border on the apex. There is no rub. ABDOMEN: Soft, obese, nontender. There is no hepatosplenomegaly. Bowel sounds are well heard. EXTREMITIES: Femorals are diminished. There are no femoral bruits. Leg pulses are diminished. There is mild pedal edema. There is no DVT or cellulitis. There is no calf tenderness. There is no cyanosis or clubbing. CENTRAL NERVOUS SYSTEM: The patient is conscious, awake, alert, oriented x3 with no focal deficit. INTAKE AND OUTPUT: The patient's intake and output is not accurately recorded. LABORATORY DATA: The patient's sodium is 144.7, potassium 4.4, chloride is 108, CO2 is 23; the patient's BUN is 63, creatinine is 2.91, GFR is reduced at 20 mL which is chronic kidney disease stage 4; her glucose is 120, calcium is 9.3. The patient's troponin I yesterday had come down to 0.080. Hence, no definite non-ST elevation DE. The patient's white count is 11,300; hemoglobin is 9.9; hematocrit is 30.1; the platelet count is 234,000. IMPRESSION: 1. ACUTE EXACERBATION OF COPD. Continue current oxygen. Continue respiratory treatment. Continue antibiotics. Continue steroids. 2. BORDERLINE ELEVATED TROPONIN I SECONDARY TO ACUTE EXACERBATION OF COPD AND RENAL FAILURE. No evidence of non-ST elevation DE. 3. HYPERTENSIVE URGENCY ON ADMISSION. AT PRESENT, BLOOD PRESSURE IS STILL NOT WELL CONTROLLED. Note that the patient was on hydralazine at 100 mg p.o. q. 12 hours at home. We will restart the patient on hydralazine 50 mg p.o. q. 8 hours. 4. COPD, OXYGEN DEPENDENT ON OXYGEN 2 L/MIN. 5. HISTORY OF TOBACCO ABUSE DISORDER. 6. HISTORY OF HYPERTENSION. IT LOOKS LIKE IT IS NOT VERY WELL CONTROLLED. 7. CHRONIC KIDNEY DISEASE STAGE 4. 8. NEUROPATHY. RECOMMENDATIONS: 1. As mentioned earlier, continue respiratory treatments, steroids, antibiotics, oxygen and nebulizer treatment. 2. Would continue the patient's amlodipine and the patient's Coreg. 3. Would restart the patient's hydralazine at 50 mg p.o. q. 8 hours. 4. Since the patient has COPD and there is no prior history of cardiomyopathy, would recommend strongly changing the Coreg to Toprol XL since this is better tolerated in people with COPD exacerbation. NOTE: Medical decision making is of high complexity. TIME SPENT: Forty-five minutes spent on the patient with more than 50% of the time spent on direct patient care. Her medications have been reviewed, medications discontinued, and new medications added. We will follow with you. DICTATING PHYSICIAN: JESSE KERNS M.D. [id number] ANNA#: [id number] ID: [id number] JOB#: [id number] ACCT: [id number] cc: > DANTED
[2018-05-28] MEDS: IPRATROPIUM/ALBUTEROL 0.5-2.5 MG/3 ML AMPUL NEB SCH ×2 (02:04→07:49)
[2018-05-28 03:44] VITALS: BP 147/78
[2018-05-28 05:18] LABS: HEMATOCRIT 29.6 % (36.0-47.0); HEMOGLOBIN 9.9 g/dL (12.0-15.5); MEAN CORPUSCULAR HEMOGLOBIN 28.9 pg (27.0-33.4); MEAN CORPUSCULAR HGB CONC 33.5 g/dL (32.0-36.0); MEAN CORPUSCULAR VOLUME 86 fl (80-97); PLATELET COUNT 239 10^3/uL (150-450); RED BLOOD COUNT 3.43 10^6/uL (3.72-5.28); RED CELL DISTRIBUTION WIDTH 13.3 % (11.5-14.0)
[2018-05-28] MEDS: HEPARIN SOD (PORCINE) 5,000 UNIT/ML 1 ML SYRINGE SUBCUT SCH (05:18)
[2018-05-28] MEDS: LANSOPRAZOLE 30 MG TAB.RAP.DR PO SCH (05:18)
[2018-05-28] MEDS: HYDRALAZINE HCL 50 MG TABLET PO SCH (05:18)
--- NOTE | 2018-05-28 09:36 | PDOC DISCHARGE SUMMARY ---
General - Admit/Disc Date/PCP Admission Date/Primary Care Provider: 05/26/18 02:27 WENCESLAO PEGUERO, Discharge Date: 05/28/18 - Discharge Diagnosis (1) COPD exacerbation Is this a current diagnosis for this admission?: Yes (2) Hypertensive urgency Is this a current diagnosis for this admission?: Yes (3) Elevated troponin Is this a current diagnosis for this admission?: Yes (4) Substance abuse Is this a current diagnosis for this admission?: Yes (5) Coronary artery disease Is this a current diagnosis for this admission?: Yes (6) Chronic diastolic heart failure Is this a current diagnosis for this admission?: Yes - Additional Information Resuscitation Status: Full Code Home Medications: Albuterol Sulfate [Proair Hfa Inhalation Aerosol 8.5 gm Mdi] 2 puff IH DAILY 06/06 Amlodipine Besylate [Norvasc 10 mg Tablet] 10 mg PO DAILY 05/26/18 Aspirin [Aspirin EC] 81 mg PO DAILY 05/26/18 Budesonide/Formoterol Fumarate [Symbicort 160-4.5 Mcg Inhaler] 2 puff IH Q12 06/06 Carvedilol [Coreg 12.5 mg Tablet] 12.5 mg PO Q12 05/26/18 Cyanocobalamin (Vitamin B-12) [Vitamin B-12 100 mcg Tablet] 100 mcg PO DAILY 06/06 Ferrous Sulfate [Feosol 325 mg Tablet] 325 mg PO DAILY 05/26/18 Gabapentin [Neurontin 400 mg Capsule] 400 mg PO Q12 05/26/18 Hydralazine HCl [Apresoline 50 mg Tablet] 100 mg PO Q12 05/26/18 Lisinopril [Prinivil 5 mg Tablet] 5 mg PO DAILY 05/26/18 Tiotropium [place] [Spiriva Handihaler 5 Cap/Kit (18 Mcg/Cap)] 1 cap IH DAILY Tramadol HCl [Ultram 50 mg Tablet] 50 mg PO Q12HP PRN 05/26/18 History of Present Illness History of Present Illness: BOOM TODD is a 62 year old female with a past medical history of chronic diastolic heart failure, poorly controlled hypertension, obstructive sleep apnea, moderate mitral regurgitation , oxygen dependent COPD, morbid obesity and stage III chronic kidney disease. Patient presents with 12 hours of exceptional shortness of breath orthopnea, coughing clear sputum, denying chest pain, fever chills nausea vomiting. In the emergency room she is found to have a blood pressure of 205/123, tachypnea, dyspnea, she is started on BiPAP and referred to the hospitalist for admission. Patient is unclear of her home medications. Hospital Course Hospital Course: This is 62 years old black female patient with multiple comorbidities presented with chief complaint of shortness of breath secondary to COPD exacerbation. Patient admitted and started on supplemental oxygen, prednisone 20 mg p.o. twice daily, and bronchodilators. Patient reports is feeling better her shortness of breath was relatively subsiding. At admission patient also found to have hypertensive urgency with blood pressure of 205/123 and after treatment today her blood pressure is 147/78. Patient does not have new complaint. Patient advised to quit smoking cocaine. He is also advised to comply with her medication and keep up her appointment with her primary care physician. I will continue all her home medication. I will send her home with Levaquin 500 mg p.o. daily for 5 days and prednisone 20 mg twice daily for 5 days. Physical Exam Vital Signs: Temp Pulse Resp BP Pulse Ox 98.2 F 65 12 147/78 H 95 05/28/18 03:43 05/28/18 07:48 05/28/18 07:48 05/28/18 03:43 05/28/18 07:48 Intake & Output 05/27/18 05/28/18 05/29/18 06:59 06:59 06:59 Intake Total 1999 3171 Balance 1999 3171 Weight 97.4 kg 97.2 kg General appearance: PRESENT: no acute distress Head exam: PRESENT: atraumatic Eye exam: PRESENT: conjunctiva pink Mouth exam: PRESENT: moist Neck exam: ABSENT: carotid bruit, JVD, lymphadenopathy, thyromegaly Respiratory exam: PRESENT: clear to auscultation brandon. ABSENT: rales, rhonchi, wheezes Cardiovascular exam: PRESENT: RRR, systolic murmur. ABSENT: rubs GI/Abdominal exam: PRESENT: normal bowel sounds, soft. ABSENT: distended, guarding, mass, organolmegaly, rebound, tenderness Extremities exam: PRESENT: full ROM. ABSENT: calf tenderness, clubbing, pedal edema Neurological exam: PRESENT: alert, awake, oriented to time, oriented to situation Psychiatric exam: PRESENT: normal mood Results Laboratory Results: 05/28/18 04:04 05/27/18 04:23 05/28/18 04:04 WBC 13.0 H RBC 3.43 L Hgb 9.9 L Hct 29.6 L MCV 86 MCH 28.9 MCHC 33.5 RDW 13.3 Plt Count 239 05/26/18 05/26/18 05/26/18 03:35 03:35 10:22 Creatine Kinase 114 110 CK-MB (CK-2) 2.48 Troponin I 0.108 05/26/18 05/26/18 05/26/18 10:22 15:38 15:38 Creatine Kinase 84 CK-MB (CK-2) 2.77 2.54 Troponin I 0.099 0.080 Impressions: Chest X-Ray 05/25/18 23:40 IMPRESSION: No acute cardiopulmonary findings. Qualifiers - * PATIENT BEING DISCHARGED WITH ANY OF THE FOLLOWING DIAGNOSIS: No
[2018-05-28] MEDS ORDERED: METOPROLOL SUCCINATE 25 MG TAB.SR.24H PO SCH (10:00)
[2018-05-28] MEDS: AMLODIPINE BESYLATE 10 MG TABLET PO SCH (10:15)
[2018-05-28] MEDS: PREDNISONE 20 MG TABLET PO SCH (10:15)
[2018-05-28] MEDS: LISINOPRIL 5 MG TABLET PO SCH (10:16)
[2018-05-28] MEDS: GABAPENTIN 400 MG CAPSULE PO SCH (10:16)
[2018-05-28] MEDS: ASPIRIN 81 MG TABLET, ENT COATED PO SCH (10:16)
[2018-05-28] MEDS: LEVOFLOXACIN 750 MG/D5W RTU 750 MG/150 ML RTUPB IV SCH (10:18)
[2018-05-28] MEDS: FLUTICASONE NASAL SPRAY 50 MCG/SPRY 120 SPRAY/16 GM NASL SCH (10:19)
--- NOTE | 2018-05-28 13:50 | PROGRESS NOTE E ---
Progress Note NAME: BOOM TODD : 1955 AGE: 62Y DATE: 05/28/2018 ROOM: 535 SUBJECTIVE: The patient denies any shortness of breath. She is still on oxygen. She denies any PND or orthopnea. Occasional leg edema. There is no chest pain or discomfort. There are no palpitations. There is no syncope or near syncope. There is no TIA or CVA symptoms. There is no arrhythmia seen on the monitor. OBJECTIVE: GENERAL: On examination, the patient is moderately obese, well-groomed, in no acute distress. VITAL SIGNS: She is afebrile with a temperature is 98.2 degrees Fahrenheit, pulse is 65 beats per minute, blood pressure 147/78, respirations are 12 per minute, O2 saturations are 95% on 2 L nasal cannula. HEENT: Head is atraumatic, normocephalic. Eyes: Pupils are equal, round, regular, reactive to light and accommodation. Extraocular movements are normal. There is no conjunctival pallor. There is no scleral icterus. ENT is negative. NECK: Supple. There no JVD. Carotids are equal. There is no bruit. There is no lymphadenopathy. There is no goiter. Trachea central. LUNGS: Show diminished air entry, prolonged expiration without any rhonchi, rales or wheezing. There are no rales of CHF. There is no chest wall tenderness. HEART: S1 and S2 are heard. There is no S3 gallop. There is no S4 gallop. S1 is of dominant intensity. There is a systolic murmur in the left sternal border and in the apex. There is no rub. ABDOMEN: Soft, obese, nontender. There is no hepatosplenomegaly. Bowel sounds are well heard. EXTREMITIES: Femorals are diminished. There are no femoral bruits. Leg pulses are diminished. There is no pedal edema today. There is no DVT or cellulitis. There is no calf tenderness. There is no cyanosis or clubbing. CENTRAL NERVOUS SYSTEM: The patient is conscious, awake, alert, oriented x3 with no focal deficit. LABORATORY DATA: The patient's white count is 13,000; hemoglobin is 9.9; hematocrit is 29.6; the platelet count is 239,000. IMPRESSION: 1. ACUTE EXACERBATION OF COPD, AT PRESENT RESOLVED. Patient back to baseline COPD. 2. RECURRENT AND BORDERLINE ELEVATED TROPONIN I SECONDARY TO ACUTE EXACERBATION OF COPD AND RENAL FAILURE. No evidence of non-ST elevation VA. 3. HYPERTENSIVE EMERGENCY ON ADMISSION. AT PRESENT, BLOOD PRESSURE IS WELL-CONTROLLED. 4. COPD, OXYGEN DEPENDENT ON 2 L/MIN. 5. HISTORY OF TOBACCO ABUSE DISORDER. Patient consulted to stop smoking. Three minutes spent on smoking cessation counseling. 6. HISTORY OF HYPERTENSION. IT LOOKS LIKE BLOOD PRESSURE IS WELL-CONTROLLED NOW. 7. CHRONIC KIDNEY DISEASE STAGE-IV. 8. NEUROPATHY. RECOMMENDATIONS: 1. Continue the patient on oxygen. 2. Continue respiratory nebulizer treatment. Smoking cessation counseling given. 3. Would continue the patient's amlodipine and we will change the Coreg to Toprol XL. 4. Would continue the patient on hydralazine 50 mg p.o. q. 8 hours. NOTE: Medical decision making is of moderate complexity. Her medications have been reviewed and discussed with the other physician on the case. Would recommend discharge for the patient. The patient was recommended to have outpatient sleep study since she has symptoms of obstructive sleep apnea. She states that her sleep study could not be completed due to her getting admitted to the hospital, but would recommend a sleep study to make sure she does not have obstructive sleep apnea since she has symptoms and signs suggestive of obstructive sleep apnea. Also, would get an echocardiogram on the patient for *------* and shortness of breath and also primary hypertension in view of her COPD. Would recommend also having a cardiac stress test later to define coronary artery since patient had multiple *------* coronary artery disease and the patient did have atypical chest tightness when she came. TIME SPENT: Forty minutes spent on the patient with more than 50% of the time spent on direct patient care. The patient remained stable and we will sign off the case. Note: The patient is a FULL CODE. Thank you for allowing me to participate in the care of this patient. DICTATING PHYSICIAN: JESSE KERNS M.D. [id number] KALAY#: [id number] ID: [id number] JOB#: [id number] ACCT: [id number] cc: >
== END 2018-05-28 11:15 | disposition home or self-care (01) | DRG 191 ==
LOC: ER 23:31 → OBSVTOIN 05-26 02:27 → EH 05-26 02:27 → 5 05-26 04:39
PROVIDERS: ADMIT Internal Medicine; ATTEND Internal Medicine
DX: J44.1 Chronic obstructive pulmonary disease with (acute) exacerbation (principal); I13.0 Hypertensive heart and chronic kidney disease with heart failure and stage 1 through stage 4 chronic kidney disease, or unspecified chronic kidney disease; N18.4 Chronic kidney disease, stage 4 (severe); I50.32 Chronic diastolic (congestive) heart failure; I16.0 Hypertensive urgency; Z99.81 Dependence on supplemental oxygen; I25.10 Atherosclerotic heart disease of native coronary artery without angina pectoris; E78.00 Pure hypercholesterolemia, unspecified; G47.33 Obstructive sleep apnea (adult) (pediatric); G62.9 Polyneuropathy, unspecified; F14.10 Cocaine abuse, uncomplicated; F17.210 Nicotine dependence, cigarettes, uncomplicated; Z79.2 Long term (current) use of antibiotics; Z79.82 Long term (current) use of aspirin; Z79.51 Long term (current) use of inhaled steroids; Z79.52 Long term (current) use of systemic steroids; Z79.899 Other long term (current) drug therapy
CPT/HCPCS: 36415; 71045; 80048; 80053; 80307; 80353; 81001; 82550; 82553; 82803; 84484; 85025; 85027; 85610; 85730; 93005; 93010; 94640; 94660; 94667; 94668; 94799; 96365; 96375; 99285; G0480; J1644; J1956; J2930; J3475; J3490; J7512; J7620

== ENCOUNTER 2018-06-18 16:13 | Inpatient (IN) | payer OTHER, MEDICARE, MEDICAID ==
--- NOTE | 2018-06-18 16:40 | ER Document Report ---
ED Respiratory Problem - General Chief Complaint: Shortness Of Breath Stated Complaint: SHORTNESS OF BREATH Time Seen by Provider: 06/18/18 16:21 Notes: This is a 62-year-old female to the emergency department chief complaint of shortness of breath. Patient has CHF and COPD. Took 80 mg of Lasix today. Urinating frequently after that. States that she is supposed to have her medicine for her breathing treatments but the [facility] has not sent it to her. It has been approximately 2 weeks and she has not had a breathing treatment. Does smoke but states that she recently quit may be approximately 2 weeks ago. Denies any chest pain. Does have shortness of breath and wheezing. Cough. Denies any fever, chills, sweats. Denies any pain in her legs. No calf pain or swelling. No other issues at this time. TRAVEL OUTSIDE OF THE [place] IN LAST 30 DAYS: No - HPI Duration: Continuous, Worse/persistent - Related Data Allergies/Adverse Reactions: No Known Allergies Allergy (Verified 12/15/17 07:04) Past Medical History - General Information source: Patient, [facility] Records - Social History Smoking Status: Former Smoker Cigarette use (# per day): Yes Frequency of alcohol use: None Drug Abuse: None Lives with: Alone Family History: CVA, Hypertension - Past Medical History Cardiac Medical History: Reports: Hx Congestive Heart Failure, Hx Coronary Artery Disease, Hx Hypercholesterolemia, Hx Hypertension, Hx Heart Murmur Pulmonary Medical History: Reports: Hx Asthma, Hx Bronchitis, Hx COPD - O2 dependent - 2L, Hx Pneumonia Denies: Hx Tuberculosis Renal/ Medical History: Denies: Hx Peritoneal Dialysis GI Medical History: Denies: Hx Cirrhosis, Hx Crohn's Disease, Hx Diverticulitis , Hx Gastroesophageal Reflux Disease, Hx Hepatitis, Hx Hiatal Hernia Musculoskeletal Medical History: Denies Hx Arthritis, Denies Hx Fibromyalgia, Reports Hx Gout Skin Medical History: Denies Hx Eczema, Denies Hx Psoriasis Psychiatric Medical History: Reports: Hx Depression Traumatic Medical History: Denies: Hx Gunshot Wound, Hx Pneumothorax, Hx Traumatic Brain Injury Infectious Medical History: Denies: Hx Hepatitis Past Surgical History: Reports: Hx Section - x 4, Hx Tubal Ligation - Immunizations Hx Diphtheria, Pertussis, Tetanus Vaccination: Yes Hx Pneumococcal Vaccination: 05/06/12 Review of Systems - Review of Systems Constitutional: denies: Fever, Malaise, Weakness EENT: denies: Blurred vision, Double vision, Difficulty swallowing Cardiovascular: Dyspnea. denies: Chest pain, Palpitations, Heart racing, Orthopnea, Syncope, Dizziness, Edema Respiratory: Cough, Short of breath, Wheezing Gastrointestinal: denies: Abdominal pain, Diarrhea, Nausea, Vomiting Genitourinary: denies: Burning, Dysuria, Discharge Musculoskeletal: denies: Back pain, Joint pain, Muscle pain, Leg swelling, Ankle swelling Skin: denies: Dryness, Lesions, Rash Hematologic/Lymphatic: denies: Blood clots, Easy bleeding, Easy bruising Neurological/Psychological: denies: Confusion, Weakness, Numbness Physical Exam - Vital signs Vitals: Pulse Resp BP Pulse Ox 90 27 H 121/110 H 90 L 06/18/18 16:32 06/18/18 16:32 06/18/18 16:32 06/18/18 16:32 Interpretation: Normal - General General appearance: Appears well, Alert - HEENT Head: Normocephalic, Atraumatic Eyes: Normal Pupils: PERRL - Respiratory Respiratory status: No respiratory distress Chest status: Nontender Breath sounds: Normal Chest palpation: Normal - Cardiovascular Rhythm: Regular Heart sounds: Normal auscultation Murmur: No - Abdominal Inspection: Normal Distension: No distension Bowel sounds: Normal Tenderness: Nontender Organomegaly: No organomegaly - Back Back: Normal, Nontender - Extremities General upper extremity: Normal inspection, Nontender, Normal color, Normal ROM , Normal temperature General lower extremity: Normal inspection, Nontender, Normal color, Normal ROM , Normal temperature, Normal weight bearing. No: Kervin's sign - Neurological Neuro grossly intact: Yes Cognition: Normal Orientation: AAOx4 [place] Coma Scale Eye Opening: Spontaneous [place] Coma Scale Verbal: Oriented [place] Coma Scale Motor: Obeys Commands [place] Coma Scale Total: 15 Speech: Normal Motor strength normal: LUE, RUE, LLE, RLE Sensory: Normal - Psychological Associated symptoms: Normal affect, Normal mood - Skin Skin Temperature: Warm Skin Moisture: Dry Skin Color: Normal Course - Re-evaluation Re-evalutation: 06/18/18 19:34 Patient still with increased work of breathing. Audible wheezing. Not getting any better after Solu-Medrol and 2 breathing treatments. Does have some baseline issues. Consult with hospitalist at this time and will admit to the hospitalist for further evaluation and treatment. Patient is comfortable with this plan. - Vital Signs Vital signs: Temp Pulse Resp BP Pulse Ox 98.5 F 90 24 H 174/78 H 96 06/18/18 16:44 06/18/18 16:32 06/18/18 19:00 06/18/18 18:01 06/18/18 19:00 - Laboratory Result Diagrams: 06/18/18 16:38 06/18/18 16:38 Laboratory results interpreted by me: 06/18/18 06/18/18 16:38 16:38 RBC 3.32 L Hgb 9.6 L Hct 29.4 L Eosinophils % 8.1 H Sodium 148.9 H Chloride 111 H BUN 42 H Creatinine 2.45 H Est GFR ( Amer) 24 L Est GFR (Non-Af Amer) 20 L Creatine Kinase 280 H - EKG Interpretation by Me EKG shows normal: Sinus rhythm, QRS Complexes, ST-T Waves [place]/QRS: Left axis deviation Voltage: Consistant with LVH When compared to previous EKG there are: No significant change Discharge - Discharge Clinical Impression: COPD exacerbation Chronic renal insufficiency Qualifiers: Chronic kidney disease stage: unspecified stage Qualified Code(s): N18.9 - Chronic kidney disease, unspecified Condition: Good Disposition: ADMITTED OBSERVATION Admitting Provider: Hospitalist - [facility] Admitted: Telemetry Referrals: WENCESLAO PEGUERO DO [Primary Care Provider] - Follow up as needed
[2018-06-18 16:50] LABS: ABSOLUTE BASOPHILS # (AUTO) 0.1 10^3/uL (0.0-0.2); ABSOLUTE EOSINOPHILS # (AUTO) 0.6 10^3/uL (0.0-0.6); ABSOLUTE LYMPHOCYTES (AUTO) 2.3 10^3/uL (0.5-4.7); ABSOLUTE MONOCYTES (AUTO) 0.5 10^3/uL (0.1-1.4); ABSOLUTE NEUT (AUTO) 3.6 10^3/uL (1.7-8.2); BASOPHILS % (AUTO) 0.8 % (0-2); EOSINOPHILS % (AUTO) 8.1 % (0-6); HEMATOCRIT 29.4 % (36.0-47.0); HEMOGLOBIN 9.6 g/dL (12.0-15.5); MEAN CORPUSCULAR HEMOGLOBIN 29.1 pg (27.0-33.4); MEAN CORPUSCULAR HGB CONC 32.8 g/dL (32.0-36.0); MEAN CORPUSCULAR VOLUME 89 fl (80-97); MONOCYTES % (AUTO) 6.9 % (3-13); PLATELET COUNT 225 10^3/uL (150-450); RED BLOOD COUNT 3.32 10^6/uL (3.72-5.28); RED CELL DISTRIBUTION WIDTH 13.7 % (11.5-14.0); SEGMENTED NEUTROPHILS % (AUTO) 51.2 % (42-78); TOTAL CELLS COUNTED % (AUTO) 100 %; WHITE BLOOD COUNT 7.1 10^3/uL (4.0-10.5)
[2018-06-18 16:57] LABS: INTERNATIONAL RATION (INR) 0.89; PROTHROMBIN TIME 12.5 SEC (11.4-15.4)
--- NOTE | 2018-06-18 17:11 | RADIOLOGY REPORT (SQ) ---
EXAM DESCRIPTION: CHEST 2 VIEWS COMPLETED DATE/TIME: 06/18/2018 4:56 pm REASON FOR STUDY: shortness of breath COMPARISON: 02/20/2018 EXAM PARAMETERS: NUMBER OF VIEWS: two views TECHNIQUE: Digital Frontal and Lateral radiographic views of the chest acquired. RADIATION DOSE: NA LIMITATIONS: none FINDINGS: LUNGS AND PLEURA: No opacities, masses or pneumothorax. No pleural effusion. MEDIASTINUM AND HILAR STRUCTURES: No masses or contour abnormalities. HEART AND VASCULAR STRUCTURES: The heart is stable. No overt CHF. BONES: No acute findings. HARDWARE: None in the chest. OTHER: No other significant finding. IMPRESSION: NO ACUTE RADIOGRAPHIC FINDING IN THE CHEST. TECHNICAL DOCUMENTATION: JOB ID: [id number] [employer]- All Rights Reserved Reading location - IP/workstation name: [email or web address]
[2018-06-18 17:13] LABS: ALANINE AMINOTRANSFERASE 17 U/L (9-52); ALBUMIN 3.8 g/dL (3.5-5.0); ALKALINE PHOSPHATASE 119 U/L (38-126); ANION GAP 13 (5-19); ASPARTATE AMINO TRANSFERASE 33 U/L (14-36); BILIRUBIN,DIRECT 0.3 mg/dL (0.0-0.4); BILIRUBIN,TOTAL 0.3 mg/dL (0.2-1.3); BLOOD UREA NITROGEN 42 mg/dL (7-20); CALCIUM 9.2 mg/dL (8.4-10.2); CARBON DIOXIDE 25 mmol/L (22-30); CHLORIDE 111 mmol/L (98-107); CREATINE KINASE 280 U/L (30-135); GLUCOSE 86 mg/dL (75-110); POTASSIUM 3.8 mmol/L (3.6-5.0); SODIUM 148.9 mmol/L (137-145); TOTAL PROTEIN 7.2 g/dL (6.3-8.2)
[2018-06-18 17:24] LABS: CREATINE KINASE MB 2.83 ng/mL (<4.55)
[2018-06-18 17:34] LABS: TROPONIN I 0.047 ng/mL
[2018-06-18] MEDS ORDERED: METHYLPREDNISOLONE INJ 125 MG/2 ML SDV IV ONE (17:38)
--- NOTE | 2018-06-18 17:58 | EKG REPORT ---
SEVERITY:- ABNORMAL ECG - SINUS RHYTHM PROBABLE LEFT ATRIAL ABNORMALITY LVH WITH IVCD AND SECONDARY REPOL ABNRM : Confirmed by: Lauren Wick 18-Jun-2018 17:57:53
[2018-06-18] MEDS ORDERED: ALBUTEROL SULFATE 0.083% NEB 2.5 MG/3 ML AMPUL NEB ONE (18:59)
[2018-06-18] MEDS ORDERED: ACETAMINOPHEN 325 MG TABLET PO PRN (20:24)
[2018-06-18] MEDS ORDERED: ONDANSETRON 4 MG TAB.RAPDIS PO PRN (20:24)
[2018-06-18] MEDS ORDERED: TRAMADOL HCL 50 MG TABLET PO PRN (21:37)
--- NOTE | 2018-06-18 21:40 | PDOC H&P ---
History of Present Illness Admission Date/PCP: 06/18/18 19:42 WENCESLAO PEGUERO DO Patient complains of: Shortness of breath and wheezing History of Present Illness: BOOM TODD is a 62 year old female with a past medical history of COPD not currently on oxygen, CHF, hypertension, CAD, CKD stage IV, strictly sleep apnea presents to the emergency room with complaint of worsening shortness of breath and wheezing for last 4 days. Patient reports that she ran out of her inhaler and has not been able to refill prescription. Patient currently follows up at the [place]. Patient has been having nonproductive cough along with wheezing and worsening shortness of breath. Patient denies fever or chills or chest pain. Patient reports no worsening of leg swelling. Patient denies nausea vomiting or diarrhea or abdominal pain. Patient denies urinary symptoms. Patient denies recent sick contacts or travel. On arrival to emergency room her vitals were stable except respiratory rate was 28 and blood pressure was 174/80. Her oxygen saturation was 96%. Patient was found to have extensive bilateral wheezing on exam. Patient was given continuous nebs and Solu-Medrol. Chest x-ray shows no acute finding or CHF. Her BNP is minimally elevated. Patient's sodium is 148 and creatinine is 2.4. Creatinine is around her baseline. Troponin is slightly elevated which is also chronically elevated in the past. EKG shows sinus rhythm with nonspecific ST changes. Patient was referred for COPD exacerbation. Past Medical History Cardiac Medical History: Reports: Congestive Heart Failure, Coronary Artery Disease, Hyperlipidema, Hypertension, Heart Murmur Pulmonary Medical History: Reports: Asthma, Bronchitis, Chronic Obstructive Pulmonary Disease (COPD) - O2 dependent - 2L, Pneumonia Denies: Tuberculosis Malignancy Medical History: Reports: None GI Medical History: Denies: Cirrhosis, Crohn's Disease, Diverticulitis, Gastroesophageal Reflux Disease, Hepatitis, Hiatal Hernia Musculoskeltal Medical History: Reports: Gout Denies: Arthritis, Fibromyalgia Skin Medical History: Denies: Eczema, Psoriasis Psychiatric Medical History: Reports: Depression Traumatic Medical History: Denies: Gunshot Wound, Pneumothorax, Traumatic Brain Injury Hematology: Denies: Hemophilia, Sickle Cell Disease, Bleeding Tendencies Past Surgical History Past Surgical History: Reports: Section - x 4, Tubal Ligation Social History Information Source: Patient Lives with: Alone Smoking Status: Former Smoker Frequency of Alcohol Use: None Hx Recreational Drug Use: No Drugs: None Hx Prescription Drug Abuse: No - Advance Directive Resuscitation Status: Full Code Family History Family History: CVA, Hypertension Parental Family History Reviewed: No Children Family History Reviewed: No Sibling(s) Family History Reviewed.: No Medication/Allergy Home Medications: Albuterol Sulfate [Proair HFA Inhalation Aerosol 8.5 gm MDI] 2 puff IH DAILY 06/06 Amlodipine Besylate [Norvasc 10 mg Tablet] 10 mg PO DAILY 05/26/18 Aspirin [Aspirin EC] 81 mg PO DAILY 05/26/18 Budesonide/Formoterol Fumarate [Symbicort 160-4.5 Mcg Inhaler] 2 puff IH Q12 06/06 Carvedilol [Coreg 12.5 mg Tablet] 12.5 mg PO Q12 05/26/18 Cyanocobalamin (Vitamin B-12) [Vitamin B-12 100 mcg Tablet] 100 mcg PO DAILY 06/06 Ferrous Sulfate [Feosol 325 mg Tablet] 325 mg PO DAILY 05/26/18 Gabapentin [Neurontin 400 mg Capsule] 400 mg PO Q12 05/26/18 Hydralazine HCl [Apresoline 50 mg Tablet] 100 mg PO Q12 05/26/18 Lisinopril [Prinivil 5 mg Tablet] 5 mg PO DAILY 05/26/18 Tiotropium [place] [Spiriva Handihaler 5 Cap/Kit (18 Mcg/Cap)] 1 cap IH DAILY Tramadol HCl [Ultram 50 mg Tablet] 50 mg PO Q12HP PRN 05/26/18 Allergies/Adverse Reactions: No Known Allergies Allergy (Verified 12/15/17 07:04) Review of Systems All systems: reviewed and no additional remarkable complaints except as stated Constitutional: ABSENT: chills, fever(s) Cardiovascular: ABSENT: chest pain Respiratory: PRESENT: cough, dyspnea Physical Exam Vital Signs: Temp Pulse Resp BP Pulse Ox 98.5 F 90 28 H 174/78 H 96 06/18/18 16:44 06/18/18 16:32 06/18/18 20:00 06/18/18 18:01 06/18/18 20:00 General appearance: PRESENT: cooperative, mild distress, well-developed, well- nourished Head exam: PRESENT: atraumatic, normocephalic Eye exam: PRESENT: EOMI, PERRLA. ABSENT: scleral icterus Ear exam: ABSENT: bleeding Mouth exam: PRESENT: moist Throat exam: ABSENT: tonsillar exudate, tonsillogmegaly Neck exam: ABSENT: carotid bruit, JVD, thyromegaly Respiratory exam: PRESENT: accessory muscle use, decreased breath sounds, prolonged expiratory phas, wheezes Cardiovascular exam: PRESENT: RRR, +S1, +S2. ABSENT: gallop, rubs, systolic murmur Pulses: PRESENT: normal carotid pulses Vascular exam: PRESENT: normal capillary refill GI/Abdominal exam: PRESENT: normal bowel sounds, soft. ABSENT: organolmegaly, tenderness Rectal exam: PRESENT: deferred Gentrourinary exam: ABSENT: ecchymosis, erythema Extremities exam: PRESENT: +1 edema. ABSENT: calf tenderness Musculoskeletal exam: PRESENT: ambulatory, full ROM Neurological exam: PRESENT: alert, altered, awake, oriented to person, oriented to time, oriented to situation, CN II-XII grossly intact, normal gait Psychiatric exam: ABSENT: homicidal ideation, suicidal ideation Skin exam: ABSENT: abrasion, rash Results Laboratory Results: Reviewed. As per HPI. EKG Comments: Hospital personally reviewed by me reviewed. Normal sinus rhythm with nonspecific ST changes. Impressions: Chest X-Ray 06/18/18 00:00 IMPRESSION: NO ACUTE RADIOGRAPHIC FINDING IN THE CHEST. Status: Image reviewed by me Assessment & Plan - Diagnosis (1) COPD exacerbation Is this a current diagnosis for this admission?: Yes Plan: Patient with COPD exacerbation. Patient with extensive bilateral wheezing. Chest x-ray does not show any infiltrate or infection. We will start patient on Solu-Medrol IV scheduled dose along with scheduled and as needed breathing treatment. Continue as needed oxygen. (2) Chronic renal insufficiency Qualifiers: Chronic kidney disease stage: stage 4 (severe) Qualified Code(s): N18.4 - Chronic kidney disease, stage 4 (severe) Is this a current diagnosis for this admission?: No Plan: Her creatinine is better at baseline (3) Hypertension Qualifiers: Hypertension type: essential hypertension Qualified Code(s): I10 - Essential (primary) hypertension Is this a current diagnosis for this admission?: No Plan: Patient with malignant hypertension. Will resume current home medication and add hydralazine as needed. (4) CHF (congestive heart failure) Qualifiers: Heart failure type: diastolic Heart failure chronicity: chronic Qualified Code(s): I50.32 - Chronic diastolic (congestive) heart failure Is this a current diagnosis for this admission?: No Plan: Will resume patient's Lasix. No signs of overt CHF. - Time Time Spent: 50 to 70 Minutes Medications reviewed and adjusted accordingly: Yes Anticipated discharge: Home - Inpatient Certification Based on my medical assessment, after consideration of the patient's comorbidities, presenting symptoms, or acuity I expect that the services needed warrant INPATIENT care.: Yes I certify that my determination is in accordance with my understanding of Medicare's requirements for reasonable and necessary INPATIENT services [42 CFR 412.3e].: Yes Medical Necessity: Significant Comorbidiites Make Outpatient Treatment Too Risky , Need For Continuous Telemetry Monitoring
[2018-06-18] MEDS: HYDRALAZINE HCL 50 MG TABLET PO SCH (22:07)
[2018-06-18] MEDS: CARVEDILOL 12.5 MG TABLET PO SCH (22:08)
[2018-06-18] MEDS: GABAPENTIN 400 MG CAPSULE PO SCH (23:19)
[2018-06-18] MEDS: METHYLPREDNISOLONE INJ 40 MG/1 ML SDV IV SCH (23:53)
[2018-06-19] MEDS: ALBUTEROL SULFATE 0.083% NEB 2.5 MG/3 ML AMPUL NEB PRN ×2 (01:03→23:26)
[2018-06-19] MEDS: IPRATROPIUM/ALBUTEROL 0.5-2.5 MG/3 ML AMPUL NEB SCH ×6 (01:05→20:12)
[2018-06-19] MEDS: HYDRALAZINE HCL INJ/PF 20 MG/1 ML SDV IV PRN ×2 (04:15→11:07)
[2018-06-19 04:46] LABS: HEMATOCRIT 29.3 % (36.0-47.0); HEMOGLOBIN 9.6 g/dL (12.0-15.5); MEAN CORPUSCULAR HEMOGLOBIN 28.8 pg (27.0-33.4); MEAN CORPUSCULAR HGB CONC 32.8 g/dL (32.0-36.0); MEAN CORPUSCULAR VOLUME 88 fl (80-97); PLATELET COUNT 222 10^3/uL (150-450); RED BLOOD COUNT 3.33 10^6/uL (3.72-5.28); RED CELL DISTRIBUTION WIDTH 13.6 % (11.5-14.0); WHITE BLOOD COUNT 4.6 10^3/uL (4.0-10.5)
[2018-06-19 05:05] LABS: ALANINE AMINOTRANSFERASE 20 U/L (9-52); ALBUMIN 3.6 g/dL (3.5-5.0); ALKALINE PHOSPHATASE 101 U/L (38-126); ASPARTATE AMINO TRANSFERASE 21 U/L (14-36); BILIRUBIN,DIRECT 0.3 mg/dL (0.0-0.4); BILIRUBIN,TOTAL 0.4 mg/dL (0.2-1.3); BLOOD UREA NITROGEN 41 mg/dL (7-20); CALCIUM 9.2 mg/dL (8.4-10.2); CHLORIDE 109 mmol/L (98-107); GLUCOSE 156 mg/dL (75-110); POTASSIUM 4.5 mmol/L (3.6-5.0); SODIUM 146.8 mmol/L (137-145); TOTAL PROTEIN 6.4 g/dL (6.3-8.2)
[2018-06-19 05:08] LABS: ANION GAP 16 (5-19); CARBON DIOXIDE 22 mmol/L (22-30)
[2018-06-19] MEDS: METHYLPREDNISOLONE INJ 40 MG/1 ML SDV IV SCH ×3 (05:56→17:24)
[2018-06-19] MEDS ORDERED: ENOXAPARIN SODIUM INJ 40 MG/0.4 ML DISP.SYRIN SUBCUT SCH (10:00)
[2018-06-19] MEDS ORDERED: LISINOPRIL 5 MG TABLET PO SCH (10:00)
[2018-06-19] MEDS: HYDRALAZINE HCL 50 MG TABLET PO SCH (11:06)
[2018-06-19] MEDS: FERROUS SULFATE 325 MG TABLET PO SCH (11:06)
[2018-06-19] MEDS: GABAPENTIN 400 MG CAPSULE PO SCH ×2 (11:06→21:34)
[2018-06-19] MEDS: AMLODIPINE BESYLATE 10 MG TABLET PO SCH (11:07)
[2018-06-19] MEDS: ASPIRIN 81 MG TABLET, ENT COATED PO SCH (11:07)
[2018-06-19] MEDS: CARVEDILOL 12.5 MG TABLET PO SCH ×2 (11:07→21:35)
[2018-06-19] MEDS: HYDRALAZINE HCL 25 MG TABLET PO SCH ×2 (16:01→21:35)
[2018-06-19] MEDS ORDERED: HYDRALAZINE HCL INJ/PF 20 MG/1 ML SDV IV PRN (18:04)
[2018-06-19] MEDS ORDERED: FUROSEMIDE INJ/PF 20 MG/2 ML SDV IV ONE (18:06)
--- NOTE | 2018-06-19 18:08 | PDOC PROGRESS REPORT ---
Subjective Progress Note for:: 06/19/18 Subjective:: The patient is a 62-year-old -B[place] female who presented to the emergency room with a COPD exacerbation. Today when I saw her she states that her shortness of breath is somewhat improved. She is back to her baseline oxygen requirements. She states she does use 2 L of oxygen at home at baseline. She denies fever or shaking chills. She has had no heart palpitations. She states her breathing is better. Her cough is improving. No nausea vomiting or diarrhea. No urinary complaints. Of note she has had markedly elevated blood pressures today. She also had an elevated BNP and I am somewhat concerned that there may be an element of congestive heart failure going on as well. Reason For Visit: COPD AE Physical Exam Vital Signs: Temp Pulse Resp BP Pulse Ox 98.5 F 71 18 163/88 H 97 06/19/18 15:31 06/19/18 16:47 06/19/18 16:47 06/19/18 15:31 06/19/18 16:47 Intake & Output 06/18/18 06/19/18 06/20/18 06:59 06:59 06:59 Intake Total 1000 Balance 1000 Weight 109.2 kg General appearance: PRESENT: no acute distress, well-developed, well-nourished Head exam: PRESENT: atraumatic, normocephalic Respiratory exam: PRESENT: decreased breath sounds, other - She has some very mild end expiratory wheezing. ABSENT: rales, rhonchi, wheezes Cardiovascular exam: PRESENT: RRR. ABSENT: diastolic murmur, rubs, systolic murmur GI/Abdominal exam: PRESENT: normal bowel sounds, soft. ABSENT: distended, guarding, mass, organolmegaly, rebound, tenderness Rectal exam: PRESENT: deferred Extremities exam: PRESENT: full ROM. ABSENT: calf tenderness, clubbing, pedal edema Neurological exam: PRESENT: alert, awake, oriented to person, oriented to place , oriented to time, oriented to situation, CN II-XII grossly intact. ABSENT: motor sensory deficit Psychiatric exam: PRESENT: appropriate affect, normal mood. ABSENT: homicidal ideation, suicidal ideation Skin exam: PRESENT: dry, intact, warm. ABSENT: cyanosis, rash Results Laboratory Results: 06/19/18 04:13 06/19/18 04:13 06/19/18 06/19/18 04:13 04:13 WBC 4.6 RBC 3.33 L Hgb 9.6 L Hct 29.3 L MCV 88 MCH 28.8 MCHC 32.8 RDW 13.6 Plt Count 222 Sodium 146.8 H Potassium 4.5 Chloride 109 H Carbon Dioxide 22 Anion Gap 16 BUN 41 H Creatinine 2.17 H Est GFR ( Amer) 28 L Est GFR (Non-Af Amer) 23 L Glucose 156 H Calcium 9.2 Total Bilirubin 0.4 AST 21 ALT 20 Alkaline Phosphatase 101 Total Protein 6.4 Albumin 3.6 Impressions: Chest X-Ray 06/18/18 00:00 IMPRESSION: NO ACUTE RADIOGRAPHIC FINDING IN THE CHEST. Assessment & Plan - Diagnosis (1) Acute and chronic respiratory failure Is this a current diagnosis for this admission?: Yes Plan: Secondary to COPD exacerbation and possibly mild heart failure exacerbation. The patient was requiring increased oxygen up to 4 L. She has now been weaned back to baseline 2 L. Her acute respiratory failure is resolving. (2) COPD exacerbation Is this a current diagnosis for this admission?: Yes Plan: I am going to change her over to p.o. prednisone today. Her wheezing is greatly improved. (3) Acute on chronic renal failure Is this a current diagnosis for this admission?: Yes Plan: Improved. She is back to her baseline. (4) Hypertensive urgency Is this a current diagnosis for this admission?: Yes (5) Acute on chronic diastolic (congestive) heart failure Is this a current diagnosis for this admission?: Yes Plan: The patient has needed BNP greater than 1000. She has a history of diastolic congestive heart failure. I will give her a one-time dose of IV Lasix and we will see if this makes a meaningful difference in her breathing. (6) Hypernatremia Is this a current diagnosis for this admission?: Yes Plan: Improving (7) Anemia Is this a current diagnosis for this admission?: Yes Plan: This is a normocytic anemia consistent with chronic disease likely due to her chronic renal failure. (8) Obesity Is this a current diagnosis for this admission?: Yes Plan: Dietary discretion is advised. She has a BMI of 37.7 (9) Hyperglycemia Is this a current diagnosis for this admission?: Yes Plan: Secondary to steroids. (10) Full code status Is this a current diagnosis for this admission?: Yes - Time Time Spent with patient: 35 or more minutes - Inpatient Certification Medical Necessity: Need Close Monitoring Due to Risk of Patient Decompensation - Inpatient hospitalization remains necessary. The patient had acute on chronic respiratory failure. She has multiple comorbidities. She is requiring parenteral diuresis and steroids. Timing of disposition will be determined by her clinical course, Other
--- NOTE | 2018-06-19 21:06 | XCELERA REPORT ---
[address] [address] Transthoracic Echocardiogram Report Name: BOOM TODD Age: 62 yrs Gender: Female : 1955 Patient Status: Inpatient Patient Location: [address] [place] [address] Study Date: 06/19/2018 10:12 AM Procedure: A two-dimensional transthoracic echocardiogram with color flow Doppler was performed. Study Quality: Fair. Reason For Study: CHF History: CHF. Ordering Physician: LIS DODD Performed By: Armida Arias Interpretation Summary uPPER NORMAL lv SIZE. There is normal left ventricular wall thickness. LV EF is > THAN 65% Left ventricular systolic function is normal. Doppler measurements suggest impaired left ventricular relaxation, which is associated with grade I/IV or mild diastolic dysfunction The left ventricular wall motion is normal. There is no thrombus. The right ventricle is not well visualized secondary to technical limitations The right ventricle is grossly normal size. The right atrium is normal. The left atrial size is normal. There is no evidence of mitral valve prolapse. There is no mitral valve stenosis. There is a trace amount of mitral regurgitation There is mild aortic stenosis There is a peak gradient of 16 mm of Hg , and mean gradient of 9 mm of Hg. There is a trace amount of aortic regurgitation There is no tricuspid stenosis. There is a trace amount of tricuspid regurgitation Right ventricular systolic pressure is normal. RVSP is 19 to 24 mm of Hg , with RA mean of 5 to 10. There is a trace amount of pulmonic regurgitation There is no pulmonic valvular stenosis. The aortic root is normal size. The inferior vena cava appeared normal and decreased > 50% with respiration (RAP 5-10 mmHg) There is no pericardial effusion. MMode/2D Measurements & Calculations RVDd: 3.1 cm LVIDd: 6.0 cm FS: 31.2 % Ao root diam: 3.1 cm IVSd: 0.95 cm LVIDs: 4.1 cm EDV(Teich): 177.9 mlAo root area: 7.5 cm2 LVPWd: 0.76 cmESV(Teich): 74.5 ml EF(Teich): 58.1 % LVOT diam: 2.0 cm LVOT area: 3.1 cm2 Doppler Measurements & Calculations MV E max brittni: MV dec slope: Ao V2 max: AI max brittni: 102.9 cm/sec 199.0 cm/sec 459.9 cm/sec MV A max brittni: 460.9 cm/sec2 Ao max PG: AI max P.3 cm/sec MV dec time: 15.9 mmHg 84.6 mmHg MV E/A: 0.84 0.22 sec Ao V2 mean: AI dec slope: 141.7 cm/sec Ao mean P.3 cm/sec2 9.2 mmHg AI P1/2t: 1129 msec Ao V2 VTI: 39.2 cm RUFINO(I,D): 2.0 cm2 RUFINO(V,D): 1.7 cm2 LV V1 max PG: SV(LVOT): 79.6 ml PA V2 max: TR max brittni: 4.8 mmHg 135.7 cm/sec 189.3 cm/sec LV V1 mean PG: PA max PG: TR max P.0 mmHg 7.4 mmHg 14.3 mmHg LV V1 max: 109.8 cm/sec LV V1 mean: 84.1 cm/sec LV V1 VTI: 25.6 cm Left Ventricle uPPER NORMAL lv SIZE. There is normal left ventricular wall thickness. LV EF is > THAN 65%. Left ventricular systolic function is normal. Doppler measurements suggest impaired left ventricular relaxation, which is associated with grade I/IV or mild diastolic dysfunction. The left ventricular wall motion is normal. There is no thrombus. Right Ventricle The right ventricle is not well visualized secondary to technical limitations. The right ventricle is grossly normal size. Atria The right atrium is normal. The left atrial size is normal. Mitral Valve There is no evidence of mitral valve prolapse. There is no vegetation seen on the mitral valve. There is no mitral valve stenosis. There is a trace amount of mitral regurgitation. Aortic Valve There is no aortic valvular vegetation. There is mild aortic stenosis. There is a peak gradient of 16 mm of Hg , and mean gradient of 9 mm of Hg. There is a trace amount of aortic regurgitation. Tricuspid Valve There is no tricuspid stenosis. There is a trace amount of tricuspid regurgitation. Right ventricular systolic pressure is normal. RVSP is 19 to 24 mm of Hg , with RA mean of 5 to 10. Pulmonic Valve There is no pulmonic valvular stenosis. There is a trace amount of pulmonic regurgitation. Great Vessels The aortic root is normal size. The inferior vena cava appeared normal and decreased > 50% with respiration (RAP 5-10 mmHg). Effusions There is no pericardial effusion. : LIS DODD > Leana Chavez
[2018-06-19] MEDS: ENOXAPARIN SODIUM INJ 30 MG/0.3 ML DISP.SYRIN SUBCUT SCH (21:35)
[2018-06-20] MEDS: HYDRALAZINE HCL 25 MG TABLET PO SCH (05:06)
[2018-06-20 05:29] LABS: ABSOLUTE LYMPHOCYTES (AUTO) 1.6 10^3/uL (0.5-4.7); ABSOLUTE MONOCYTES (AUTO) 0.3 10^3/uL (0.1-1.4); BASOPHILS % (AUTO) 0.2 % (0-2); HEMATOCRIT 27.1 % (36.0-47.0); HEMOGLOBIN 9.1 g/dL (12.0-15.5); LYMPHOCYTES % (AUTO) 14.7 % (13-45); MEAN CORPUSCULAR HEMOGLOBIN 29.3 pg (27.0-33.4); MEAN CORPUSCULAR HGB CONC 33.6 g/dL (32.0-36.0); MEAN CORPUSCULAR VOLUME 87 fl (80-97); MONOCYTES % (AUTO) 2.8 % (3-13); PLATELET COUNT 221 10^3/uL (150-450); RED BLOOD COUNT 3.11 10^6/uL (3.72-5.28); RED CELL DISTRIBUTION WIDTH 13.3 % (11.5-14.0); SEGMENTED NEUTROPHILS % (AUTO) 82.3 % (42-78); TOTAL CELLS COUNTED % (AUTO) 100 %
[2018-06-20 05:51] LABS: ANION GAP 15 (5-19); BLOOD UREA NITROGEN 52 mg/dL (7-20); CALCIUM 9.1 mg/dL (8.4-10.2); CARBON DIOXIDE 22 mmol/L (22-30); CHLORIDE 105 mmol/L (98-107); GLUCOSE 107 mg/dL (75-110); SODIUM 141.7 mmol/L (137-145)
[2018-06-20] MEDS: IPRATROPIUM/ALBUTEROL 0.5-2.5 MG/3 ML AMPUL NEB SCH ×4 (08:03→19:42)
[2018-06-20] MEDS: MAGNESIUM SULFATE/D5W 1 GM/100 ML RTUPB IV SCH ×2 (08:44→11:10)
[2018-06-20] MEDS: ENOXAPARIN SODIUM INJ 30 MG/0.3 ML DISP.SYRIN SUBCUT SCH (09:34)
[2018-06-20] MEDS: CARVEDILOL 12.5 MG TABLET PO SCH ×2 (09:36→22:05)
[2018-06-20] MEDS: ASPIRIN 81 MG TABLET, ENT COATED PO SCH (09:36)
[2018-06-20] MEDS: LISINOPRIL 5 MG TABLET PO SCH (09:36)
[2018-06-20] MEDS: AMLODIPINE BESYLATE 10 MG TABLET PO SCH (09:37)
[2018-06-20] MEDS: PREDNISONE 20 MG TABLET PO SCH (09:37)
[2018-06-20] MEDS: GABAPENTIN 400 MG CAPSULE PO SCH ×2 (09:37→22:05)
[2018-06-20] MEDS: FERROUS SULFATE 325 MG TABLET PO SCH (09:37)
--- NOTE | 2018-06-20 13:07 | PDOC PROGRESS REPORT ---
Subjective Progress Note for:: 06/20/18 Subjective:: The patient is a 62-year-old -[place] female who presented to the emergency room with a COPD exacerbation. She was started on parenteral steroids and aggressive breathing treatments at the time of admission. Yesterday when I saw her I felt as if she had some volume overload as well. She did respond quite nicely to a one-time dose of IV Lasix. She has an elevated BNP which actually is worse today than yesterday. She had a 2D echocardiogram performed which reveals diastolic dysfunction. She has normal LV function. Today when I saw her she states she continues to improve. She has been seen by physical therapy and can walk fairly well unassisted. She denies fever chills. No chest pain, shortness of breath or cough. Or heart palpitations. She states she still is somewhat short of breath and would like to try another dose of Lasix today. She has no nausea vomiting or diarrhea. No urinary complaints. Reason For Visit: COPD AE Physical Exam Vital Signs: Temp Pulse Resp BP Pulse Ox 98.6 F 67 18 173/86 H 99 06/20/18 11:10 06/20/18 11:10 06/20/18 11:10 06/20/18 11:10 06/20/18 11:10 Intake & Output 06/19/18 06/20/18 06/21/18 06:59 06:59 06:59 Intake Total 2049 100 Balance 2049 100 Weight 109.2 kg 105.6 kg General appearance: PRESENT: no acute distress, well-developed, well-nourished, other - She is receiving oxygen via nasal cannula Head exam: PRESENT: atraumatic, normocephalic Mouth exam: PRESENT: moist, tongue midline Neck exam: ABSENT: carotid bruit, JVD, lymphadenopathy, thyromegaly Respiratory exam: PRESENT: decreased breath sounds - She is somewhat diminished in the lower bases with some mild end expiratory wheezing.. ABSENT: rales, rhonchi, wheezes Cardiovascular exam: PRESENT: RRR. ABSENT: diastolic murmur, rubs, systolic murmur GI/Abdominal exam: PRESENT: normal bowel sounds, soft. ABSENT: distended, guarding, mass, organolmegaly, rebound, tenderness Rectal exam: PRESENT: deferred Extremities exam: PRESENT: full ROM. ABSENT: calf tenderness, clubbing, pedal edema Neurological exam: PRESENT: alert, awake, oriented to person, oriented to place , oriented to time, oriented to situation, CN II-XII grossly intact. ABSENT: motor sensory deficit Psychiatric exam: PRESENT: appropriate affect, normal mood. ABSENT: homicidal ideation, suicidal ideation Skin exam: PRESENT: dry, intact, warm. ABSENT: cyanosis, rash Results Laboratory Results: 06/20/18 04:23 06/20/18 04:23 06/20/18 06/20/18 04:23 04:23 WBC 11.0 H D RBC 3.11 L Hgb 9.1 L Hct 27.1 L MCV 87 MCH 29.3 MCHC 33.6 RDW 13.3 Plt Count 221 Seg Neutrophils % 82.3 H Lymphocytes % 14.7 Monocytes % 2.8 L Eosinophils % 0.0 Basophils % 0.2 Absolute Neutrophils 9.0 H Absolute Lymphocytes 1.6 Absolute Monocytes 0.3 Absolute Eosinophils 0.0 Absolute Basophils 0.0 Sodium 141.7 Potassium 4.0 Chloride 105 Carbon Dioxide 22 Anion Gap 15 BUN 52 H Creatinine 2.15 H Est GFR ( Amer) 28 L Est GFR (Non-Af Amer) 23 L Glucose 107 Calcium 9.1 Magnesium 1.5 L 06/20/18 04:23 NT-Pro-B Natriuret Pep 3680 H Impressions: Chest X-Ray 06/18/18 00:00 IMPRESSION: NO ACUTE RADIOGRAPHIC FINDING IN THE CHEST. Assessment & Plan - Diagnosis (1) Acute and chronic respiratory failure Is this a current diagnosis for this admission?: Yes Plan: The patient is back to her baseline oxygen requirements. Her respiratory failure is likely due to a COPD exacerbation as well as a mild congestive heart failure exacerbation. We will continue aggressive breathing treatments and therapy as outlined below. Continue 2 L of oxygen which she uses at home. (2) COPD exacerbation Is this a current diagnosis for this admission?: Yes Plan: She has been changed over to 60 mg of prednisone daily. We will continue a taper as an outpatient. Continue breathing treatments (3) Acute on chronic renal failure Is this a current diagnosis for this admission?: Yes Plan: Improved. She is back to her baseline renal function. (4) Hypertensive urgency Is this a current diagnosis for this admission?: Yes Plan: Resolved, however her blood pressures remain quite high. I am going to increase her p.o. hydralazine today. She will continue to have IV medications available as well. She also takes 10 mg of amlodipine, carvedilol 20 mg of lisinopril. (5) Acute on chronic diastolic (congestive) heart failure Is this a current diagnosis for this admission?: Yes Plan: The patient's BNP is actually much higher today. She did respond quite well to 1 dose of IV Lasix yesterday. I am going to give her another dose of 40 mg of IV Lasix this morning. She did have a 2D echocardiogram performed which reveals grade 1 diastolic dysfunction. (6) Hypernatremia Is this a current diagnosis for this admission?: Yes Plan: Resolved. (7) Anemia Is this a current diagnosis for this admission?: Yes Plan: This is a normocytic anemia consistent with chronic disease likely due to her chronic renal failure. (8) Obesity Is this a current diagnosis for this admission?: Yes Plan: Dietary discretion is advised. She has a BMI of 37.7 (9) Hyperglycemia Is this a current diagnosis for this admission?: Yes Plan: Secondary to steroids. (10) Full code status Is this a current diagnosis for this admission?: Yes - Time Time Spent with patient: 25-34 minutes - Inpatient Certification Medical Necessity: Other - Inpatient hospitalization remains necessary. The patient's BNP is rising and I believe she would benefit from an additional day of parenteral diuretics. Overall she is improving and I am hopeful that she will be stable for discharge in the next 24-48 hours.
[2018-06-20] MEDS ORDERED: HYDRALAZINE HCL 25 MG TABLET PO SCH (13:15)
[2018-06-20] MEDS ORDERED: FUROSEMIDE INJ/PF 20 MG/2 ML SDV IV ONE (13:30)
[2018-06-20] MEDS: HYDRALAZINE HCL 50 MG TABLET PO SCH ×2 (14:06→22:05)
[2018-06-21] MEDS: HYDRALAZINE HCL 50 MG TABLET PO SCH ×3 (05:05→22:37)
[2018-06-21 05:35] LABS: ABSOLUTE LYMPHOCYTES (AUTO) 2.1 10^3/uL (0.5-4.7); ABSOLUTE MONOCYTES (AUTO) 0.5 10^3/uL (0.1-1.4); ABSOLUTE NEUT (AUTO) 9.8 10^3/uL (1.7-8.2); BASOPHILS % (AUTO) 0.4 % (0-2); EOSINOPHILS % (AUTO) 0.1 % (0-6); HEMATOCRIT 27.6 % (36.0-47.0); HEMOGLOBIN 9.3 g/dL (12.0-15.5); LYMPHOCYTES % (AUTO) 16.6 % (13-45); MEAN CORPUSCULAR HEMOGLOBIN 29.2 pg (27.0-33.4); MEAN CORPUSCULAR HGB CONC 33.6 g/dL (32.0-36.0); MEAN CORPUSCULAR VOLUME 87 fl (80-97); MONOCYTES % (AUTO) 3.7 % (3-13); PLATELET COUNT 191 10^3/uL (150-450); RED BLOOD COUNT 3.17 10^6/uL (3.72-5.28); RED CELL DISTRIBUTION WIDTH 13.6 % (11.5-14.0); SEGMENTED NEUTROPHILS % (AUTO) 79.2 % (42-78); TOTAL CELLS COUNTED % (AUTO) 100 %; WHITE BLOOD COUNT 12.4 10^3/uL (4.0-10.5)
[2018-06-21] MEDS: IPRATROPIUM/ALBUTEROL 0.5-2.5 MG/3 ML AMPUL NEB SCH ×4 (08:02→19:55)
[2018-06-21 08:06] LABS: ANION GAP 11 (5-19); BLOOD UREA NITROGEN 58 mg/dL (7-20); CALCIUM 9.1 mg/dL (8.4-10.2); CARBON DIOXIDE 24 mmol/L (22-30); CHLORIDE 104 mmol/L (98-107); GLUCOSE 98 mg/dL (75-110); POTASSIUM 3.8 mmol/L (3.6-5.0); SODIUM 138.9 mmol/L (137-145)
[2018-06-21] MEDS: ENOXAPARIN SODIUM INJ 30 MG/0.3 ML DISP.SYRIN SUBCUT SCH (09:38)
[2018-06-21] MEDS: AMLODIPINE BESYLATE 10 MG TABLET PO SCH (09:41)
[2018-06-21] MEDS: GABAPENTIN 400 MG CAPSULE PO SCH ×2 (09:41→22:37)
[2018-06-21] MEDS: PREDNISONE 20 MG TABLET PO SCH (09:41)
[2018-06-21] MEDS: CARVEDILOL 12.5 MG TABLET PO SCH ×2 (09:42→22:37)
[2018-06-21] MEDS: FERROUS SULFATE 325 MG TABLET PO SCH (09:42)
[2018-06-21] MEDS: LISINOPRIL 5 MG TABLET PO SCH (09:42)
[2018-06-21] MEDS: ASPIRIN 81 MG TABLET, ENT COATED PO SCH (09:42)
--- NOTE | 2018-06-21 17:05 | PDOC PROGRESS REPORT ---
Subjective Progress Note for:: 06/21/18 Subjective:: Patient was observed today to be stable in no acute respiratory distress she is still wheezing to a degree but not far from her baseline. She requested to stay here for another day to continue aggressive bronchodilator treatment. Reason For Visit: COPD AE Physical Exam Vital Signs: Temp Pulse Resp BP Pulse Ox 98.1 F 61 16 147/74 H 97 06/21/18 11:10 06/21/18 15:54 06/21/18 15:54 06/21/18 11:10 06/21/18 11:10 Intake & Output 06/20/18 06/21/18 06/22/18 06:59 06:59 06:59 Intake Total 2049 2273 1050 Balance 2049 2273 1050 Weight 232 lb 12.93 oz 216 lb 7.903 oz Additional comments: Patient no acute distress Alert oriented to time place person No anxiety or depression Head atraumatic normocephalic Pupils are equal reactive Regular rate and rhythm Lungs are positive for bilateral wheezing Abdomen nontender nondistended Neurological exam unremarkable Results Laboratory Results: 06/21/18 04:12 06/21/18 07:29 06/21/18 06/21/18 06/21/18 04:12 04:12 07:29 WBC 12.4 H RBC 3.17 L Hgb 9.3 L Hct 27.6 L MCV 87 MCH 29.2 MCHC 33.6 RDW 13.6 Plt Count 191 Seg Neutrophils % 79.2 H Lymphocytes % 16.6 Monocytes % 3.7 Eosinophils % 0.1 Basophils % 0.4 Absolute Neutrophils 9.8 H Absolute Lymphocytes 2.1 Absolute Monocytes 0.5 Absolute Eosinophils 0.0 Absolute Basophils 0.0 Sodium Cancelled 138.9 Potassium Cancelled 3.8 Chloride Cancelled 104 Carbon Dioxide Cancelled 24 Anion Gap Cancelled 11 BUN Cancelled 58 H Creatinine Cancelled 2.17 H Est GFR ( Amer) Cancelled 28 L Est GFR (Non-Af Amer) Cancelled 23 L Glucose Cancelled 98 Calcium Cancelled 9.1 Magnesium Cancelled 1.9 06/20/18 06/21/18 06/21/18 04:23 04:12 07:29 NT-Pro-B Natriuret Pep 3680 H Cancelled 2500 H Impressions: Chest X-Ray 06/18/18 00:00 IMPRESSION: NO ACUTE RADIOGRAPHIC FINDING IN THE CHEST. Assessment & Plan - Diagnosis (1) Acute and chronic respiratory failure Is this a current diagnosis for this admission?: Yes Plan: Patient is not at her baseline yet. Continue current treatment and monitor her clinical improvement (2) COPD exacerbation Is this a current diagnosis for this admission?: Yes Plan: Decrease prednisone further to 40 mg daily. Continue current breathing treatments (3) Acute on chronic diastolic (congestive) heart failure Is this a current diagnosis for this admission?: Yes Plan: Continue current medications (4) Acute on chronic renal failure Is this a current diagnosis for this admission?: Yes Plan: Improved. Monitor renal function and electrolytes (5) Anemia Is this a current diagnosis for this admission?: Yes Plan: Stable. Monitor hemoglobin and hematocrit levels (6) Hypertensive urgency Is this a current diagnosis for this admission?: Yes Plan: Currently blood pressure is better
[2018-06-22] MEDS: HYDRALAZINE HCL 50 MG TABLET PO SCH (05:13)
[2018-06-22 05:52] LABS: ABSOLUTE BASOPHILS # (AUTO) 0.1 10^3/uL (0.0-0.2); ABSOLUTE LYMPHOCYTES (AUTO) 2.5 10^3/uL (0.5-4.7); ABSOLUTE MONOCYTES (AUTO) 0.5 10^3/uL (0.1-1.4); ABSOLUTE NEUT (AUTO) 9.1 10^3/uL (1.7-8.2); BASOPHILS % (AUTO) 0.7 % (0-2); HEMATOCRIT 27.1 % (36.0-47.0); LYMPHOCYTES % (AUTO) 20.6 % (13-45); MEAN CORPUSCULAR HEMOGLOBIN 28.9 pg (27.0-33.4); MEAN CORPUSCULAR HGB CONC 33.1 g/dL (32.0-36.0); MEAN CORPUSCULAR VOLUME 87 fl (80-97); MONOCYTES % (AUTO) 3.8 % (3-13); PLATELET COUNT 175 10^3/uL (150-450); RED CELL DISTRIBUTION WIDTH 13.3 % (11.5-14.0); SEGMENTED NEUTROPHILS % (AUTO) 74.9 % (42-78); TOTAL CELLS COUNTED % (AUTO) 100 %; WHITE BLOOD COUNT 12.2 10^3/uL (4.0-10.5)
[2018-06-22 05:58] LABS: ALANINE AMINOTRANSFERASE 24 U/L (9-52); ALBUMIN 3.2 g/dL (3.5-5.0); ALKALINE PHOSPHATASE 96 U/L (38-126); ANION GAP 12 (5-19); ASPARTATE AMINO TRANSFERASE 13 U/L (14-36); BILIRUBIN,DIRECT 0.3 mg/dL (0.0-0.4); BILIRUBIN,TOTAL 0.3 mg/dL (0.2-1.3); BLOOD UREA NITROGEN 68 mg/dL (7-20); CALCIUM 8.8 mg/dL (8.4-10.2); CARBON DIOXIDE 22 mmol/L (22-30); CHLORIDE 104 mmol/L (98-107); GLUCOSE 113 mg/dL (75-110); SODIUM 138.2 mmol/L (137-145)
[2018-06-22] MEDS: IPRATROPIUM/ALBUTEROL 0.5-2.5 MG/3 ML AMPUL NEB SCH ×2 (09:03→12:50)
[2018-06-22] MEDS ORDERED: PREDNISONE 20 MG TABLET PO SCH (10:00)
[2018-06-22] MEDS: ENOXAPARIN SODIUM INJ 30 MG/0.3 ML DISP.SYRIN SUBCUT SCH (11:17)
[2018-06-22] MEDS: CARVEDILOL 12.5 MG TABLET PO SCH (11:18)
[2018-06-22] MEDS: AMLODIPINE BESYLATE 10 MG TABLET PO SCH (11:18)
[2018-06-22] MEDS: GABAPENTIN 400 MG CAPSULE PO SCH (11:18)
[2018-06-22] MEDS: LISINOPRIL 5 MG TABLET PO SCH (11:19)
[2018-06-22] MEDS: FERROUS SULFATE 325 MG TABLET PO SCH (11:19)
[2018-06-22] MEDS: ASPIRIN 81 MG TABLET, ENT COATED PO SCH (11:19)
--- NOTE | 2018-06-22 12:24 | PDOC DISCHARGE SUMMARY ---
General - Admit/Disc Date/PCP Admission Date/Primary Care Provider: 06/18/18 19:42 WENCESLAO PEGUERO, DO Discharge Date: 06/22/18 - Discharge Diagnosis (1) Acute and chronic respiratory failure Is this a current diagnosis for this admission?: Yes (2) COPD exacerbation Is this a current diagnosis for this admission?: Yes (3) Acute on chronic diastolic (congestive) heart failure Is this a current diagnosis for this admission?: Yes (4) Acute on chronic renal failure Is this a current diagnosis for this admission?: Yes (5) Anemia Is this a current diagnosis for this admission?: Yes (6) Hypertensive urgency Is this a current diagnosis for this admission?: Yes - Additional Information Resuscitation Status: Full Code Discharge Diet: Cardiac Discharge Activity: Activity As Tolerated Prescriptions: Albuterol Sulfate [Ventolin 0.083% Neb 2.5 mg/3 mL Ampul] 2.5 mg NEB RTQ2HP PRN #60 [email or web address] PRN Reason: Ipratropium/Albuterol Sulfate [Duoneb 3 ml Ampul] 3 ml NEB [id number] #60 [email or web address] Prednisone 10 mg PO DAILY #30 tablet Home Medications: Albuterol Sulfate [Proair HFA Inhalation Aerosol 8.5 gm MDI] 2 puff IH DAILY 06/06 Amlodipine Besylate [Norvasc 10 mg Tablet] 10 mg PO DAILY 05/26/18 Aspirin [Aspirin EC] 81 mg PO DAILY 05/26/18 Budesonide/Formoterol Fumarate [Symbicort 160-4.5 Mcg Inhaler] 2 puff IH Q12 06/06 Carvedilol [Coreg 12.5 mg Tablet] 12.5 mg PO Q12 05/26/18 Cyanocobalamin (Vitamin B-12) [Vitamin B-12 100 mcg Tablet] 100 mcg PO DAILY 06/06 Ferrous Sulfate [Feosol 325 mg Tablet] 325 mg PO DAILY 05/26/18 Gabapentin [Neurontin 400 mg Capsule] 400 mg PO Q12 05/26/18 Hydralazine HCl [Apresoline 50 mg Tablet] 100 mg PO Q12 05/26/18 Lisinopril [Prinivil 5 mg Tablet] 5 mg PO DAILY 05/26/18 Tiotropium [facility] [Spiriva Handihaler 5 Cap/Kit (18 Mcg/Cap)] 1 cap IH DAILY Tramadol HCl [Ultram 50 mg Tablet] 50 mg PO Q12HP PRN 05/26/18 Albuterol Sulfate [Ventolin 0.083% Neb 2.5 mg/3 mL Ampul] 2.5 mg NEB RTQ2HP PRN #60 [email or web address] 06/22/18 Ipratropium/Albuterol Sulfate [Duoneb 3 ml Ampul] 3 ml NEB [id number] #60 [email or web address] 06/22/18 Prednisone 10 mg PO DAILY #30 tablet 06/22/18 History of Present Illness History of Present Illness: BOOM TODD is a 62 year old female who has history of COPD CHF hypertension chronic kidney disease coronary artery disease sleep apnea and uses oxygen at home. She presents to the emergency room 2 to progressive worsening of shortness of breath and wheezing Hospital Course Hospital Course: She received scheduled DuoNeb and albuterol as needed. She was on IV steroids which later was switched to p.o. steroids. Her chest x-ray was negative for pneumonia. Her echocardiogram shows normal EF. She responded well to treatment and now at her baseline. She will be discharged on tapering dose of p.o. prednisone. Physical Exam Vital Signs: Temp Pulse Resp BP Pulse Ox 97.6 F 66 14 148/62 H 99 06/22/18 07:26 06/22/18 09:02 06/22/18 09:02 06/22/18 07:26 06/22/18 09:02 Intake & Output 06/21/18 06/22/18 06/23/18 06:59 06:59 06:59 Intake Total 2273 1808 Balance 2273 1808 Weight 216 lb 7.903 oz 139 lb 8.842 oz Exam: Patient no acute distress Alert oriented to time place person No anxiety or depression Head atraumatic normocephalic Pupils are equal reactive Regular rate and rhythm Lungs faint wheezing no distress Abdomen nontender nondistended Neurological exam unremarkable Results Laboratory Results: 06/22/18 04:44 06/22/18 04:44 06/22/18 06/22/18 04:44 04:44 WBC 12.2 H RBC 3.10 L Hgb 9.0 L Hct 27.1 L MCV 87 MCH 28.9 MCHC 33.1 RDW 13.3 Plt Count 175 Seg Neutrophils % 74.9 Lymphocytes % 20.6 Monocytes % 3.8 Eosinophils % 0.0 Basophils % 0.7 Absolute Neutrophils 9.1 H Absolute Lymphocytes 2.5 Absolute Monocytes 0.5 Absolute Eosinophils 0.0 Absolute Basophils 0.1 Sodium 138.2 Potassium 4.0 Chloride 104 Carbon Dioxide 22 Anion Gap 12 BUN 68 H Creatinine 2.06 H Est GFR ( Amer) 30 L Est GFR (Non-Af Amer) 24 L Glucose 113 H Calcium 8.8 Total Bilirubin 0.3 AST 13 L ALT 24 Alkaline Phosphatase 96 Total Protein 6.0 L Albumin 3.2 L 06/20/18 06/21/18 06/21/18 04:23 04:12 07:29 NT-Pro-B Natriuret Pep 3680 H Cancelled 2500 H Impressions: Chest X-Ray 06/18/18 00:00 IMPRESSION: NO ACUTE RADIOGRAPHIC FINDING IN THE CHEST. Qualifiers - * PATIENT BEING DISCHARGED WITH ANY OF THE FOLLOWING DIAGNOSIS: No
[2018-06-22 13:31] VITALS: BP 170/70
== END 2018-06-22 13:48 | disposition home or self-care (01) | DRG 189 ==
LOC: ER 16:13 → EH 19:42 → OBSVTOIN 19:42 → 5 22:46
PROVIDERS: ADMIT Internal Medicine; ATTEND Internal Medicine
DX: J96.20 Acute and chronic respiratory failure, unspecified whether with hypoxia or hypercapnia (principal); I50.33 Acute on chronic diastolic (congestive) heart failure; J44.1 Chronic obstructive pulmonary disease with (acute) exacerbation; I13.0 Hypertensive heart and chronic kidney disease with heart failure and stage 1 through stage 4 chronic kidney disease, or unspecified chronic kidney disease; N18.4 Chronic kidney disease, stage 4 (severe); N17.9 Acute kidney failure, unspecified; E87.0 Hyperosmolality and hypernatremia; I25.10 Atherosclerotic heart disease of native coronary artery without angina pectoris; E78.00 Pure hypercholesterolemia, unspecified; D63.1 Anemia in chronic kidney disease; I16.0 Hypertensive urgency; Z60.2 Problems related to living alone; Z99.81 Dependence on supplemental oxygen; Z79.82 Long term (current) use of aspirin; Z79.51 Long term (current) use of inhaled steroids; Z79.899 Other long term (current) drug therapy
CPT/HCPCS: 36415; 71046; 80048; 80053; 82550; 82553; 83605; 83735; 83880; 84484; 85025; 85027; 85610; 87040; 93005; 93010; 93306; 94640; 96374; 99285; G8978-GP; G8979-GP; G8980-GP; J0360; J1650; J1940; J2920; J2930; J3475; J7512; J7620

== ENCOUNTER 2018-07-11 08:42 | Inpatient (IN) | payer OTHER, MEDICARE, MEDICAID ==
--- NOTE | 2018-07-11 08:54 | ER Document Report ---
ED Respiratory Problem - General Mode of Arrival: Ambulatory Information source: Patient TRAVEL OUTSIDE OF THE [place] IN LAST 30 DAYS: No <MEGHA VILLA - Last Filed: 07/11/18 11:05> <MAURICE MORATAYA - Last Filed: 07/11/18 14:37> - General Stated Complaint: DIFFICULTY BREATHING Time Seen by Provider: 07/11/18 08:49 Notes: 62-year-old female who presents to the emergency department today with complaints of shortness of breath which began last night. Patient states she has also had a cough which is nonproductive. Patient smokes a quarter pack per day. Patient was recently admitted for COPD exacerbation from June 18 - June 22. Patient denies any fevers. (MEGHA VILLA) - Related Data Allergies/Adverse Reactions: No Known Allergies Allergy (Verified 12/15/17 07:04) Past Medical History - General Information source: Patient, [facility] Records - Social History Smoking Status: Current Every Day Smoker Cigarette use (# per day): Yes Frequency of alcohol use: None Drug Abuse: None Lives with: Family Family History: Reviewed & Not Pertinent, CVA, Hypertension - Past Medical History Cardiac Medical History: Reports: Hx Congestive Heart Failure, Hx Coronary Artery Disease, Hx Hypercholesterolemia, Hx Hypertension, Hx Heart Murmur Pulmonary Medical History: Reports: Hx Asthma, Hx Bronchitis, Hx COPD - O2 dependent - 2L, Hx Pneumonia Musculoskeletal Medical History: Reports Hx Gout Psychiatric Medical History: Reports: Hx Depression Past Surgical History: Reports: Hx Section - x 4, Hx Tubal Ligation - Immunizations Hx Diphtheria, Pertussis, Tetanus Vaccination: Yes Hx Pneumococcal Vaccination: 05/06/12 <MEGHA VILLA - Last Filed: 07/11/18 11:05> Review of Systems - Review of Systems Constitutional: denies: Fever EENT: No symptoms reported Cardiovascular: No symptoms reported Respiratory: See HPI, Short of breath Gastrointestinal: No symptoms reported Genitourinary: No symptoms reported Female Genitourinary: No symptoms reported Musculoskeletal: No symptoms reported Skin: No symptoms reported Hematologic/Lymphatic: No symptoms reported Neurological/Psychological: No symptoms reported -: Yes All other systems reviewed and negative <MEGHA VILLA - Last Filed: 07/11/18 11:05> Physical Exam <MEGHA VILLA - Last Filed: 07/11/18 11:05> <MAURICE MORATAYA - Last Filed: 07/11/18 14:37> - Vital signs Vitals: Temp 98.9 F 07/11/18 08:42 - Notes Notes: Physical Exam: General: Alert, obese. HEENT: Normocephalic. Atraumatic. PERRL. Extraocular movements intact. Oropharynx clear. Neck: Supple. Non-tender. Respiratory: Appears dyspneic, tachypneic, diffuse wheezing and rhonchi throughout bilaterally. Cardiovascular: Tachycardic, regular rhythm. Abdominal: Nontender. Slightly distended with resonant percussion. Normal Bowel Sounds. Back: Non-tender. No deformity or step off. Extremities: Moves all four extremities. Upper extremities: Normal inspection. Normal ROM. Lower extremities: Normal inspection. No edema. Normal ROM. Neurological: Normal cognition. AAOx4. Normal speech. Psychological: Normal affect. Normal Mood. Skin: Warm. Dry. Normal color. (MEGHA VILLA) Course - Laboratory Result Diagrams: 07/11/18 10:37 07/11/18 10:37 <MEGHA VILLA - Last Filed: 07/11/18 11:05> - Laboratory Result Diagrams: 07/11/18 10:37 07/11/18 10:37 - EKG Interpretation by Ct EKG shows normal: Sinus rhythm, Eagle, Intervals, QRS Complexes, ST-T Waves Rate: Tachycardia - 103 Eagle/QRS: IVCD Voltage: Consistant with LVH When compared to previous EKG there are: No significant change <MAURICE MORATAYA - Last Filed: 07/11/18 14:37> - Vital Signs Vital signs: Temp Pulse Resp BP Pulse Ox 97.6 F 25 H 163/80 H 93 07/11/18 14:24 07/11/18 14:00 07/11/18 12:01 07/11/18 14:00 - Laboratory Laboratory results interpreted by id: 07/11/18 07/11/18 07/11/18 10:37 10:37 10:37 WBC 14.2 H RBC 3.55 L Hgb 10.0 L Hct 31.2 L Seg Neuts % (Manual) 93 H Lymphocytes % (Manual) 5 L Monocytes % (Manual) 0 L Abs Neuts (Manual) 13.2 H Abs Monocytes (Manual) 0.0 L Sodium 147.4 H Chloride 108 H BUN 37 H Creatinine 2.74 H Est GFR ( Amer) 21 L Est GFR (Non-Af Amer) 18 L NT-Pro-B Natriuret Pep 1030 H Urine Protein Urine Blood Ur Leukocyte Esterase 07/11/18 12:20 WBC RBC Hgb Hct Seg Neuts % (Manual) Lymphocytes % (Manual) Monocytes % (Manual) Abs Neuts (Manual) Abs Monocytes (Manual) Sodium Chloride BUN Creatinine Est GFR ( Amer) Est GFR (Non-Af Amer) NT-Pro-B Natriuret Pep Urine Protein 30 H Urine Blood LARGE H Ur Leukocyte Esterase TRACE H Discharge <MEGHA VILLA - Last Filed: 07/11/18 11:05> - Discharge Admitting Provider: Hospitalist Unit Admitted: Telemetry <MAURICE MORATAYA - Last Filed: 07/11/18 14:37> - Discharge Clinical Impression: Acute exacerbation of chronic obstructive pulmonary disease (COPD) Congestive heart failure (CHF) Qualifiers: Heart failure type: unspecified Heart failure chronicity: acute on chronic Qualified Code(s): I50.9 - Heart failure, unspecified Leukocytosis Qualifiers: Leukocytosis type: unspecified Qualified Code(s): D72.829 - Elevated white blood cell count, unspecified Condition: Stable Disposition: ADMITTED INPATIENT Referrals: WENCESLAO PEGUERO DO [Primary Care Provider] - Follow up as needed Scribe Attestation: 07/11/18 09:01 I personally performed the services described in the documentation, reviewed and edited the documentation which was dictated to the scribe in my presence, and it accurately records my words and actions. (MAURICE MORATAYA) Scribe Documentation - Scribe Written by Scribe:: Mayela Campbell, 07/11/2018 1125 acting as scribe for :: Caryn <MEGHA VILLA - Last Filed: 07/11/18 11:05>
[2018-07-11] MEDS ORDERED: IPRATROPIUM/ALBUTEROL 0.5-2.5 MG/3 ML AMPUL NEB ONE ×2 (08:59→14:11)
[2018-07-11] MEDS ORDERED: MAGNESIUM SULFATE/D5W 1 GM/100 ML RTUPB IV ONE (09:00)
--- NOTE | 2018-07-11 09:20 | RADIOLOGY REPORT (SQ) ---
EXAM DESCRIPTION: CHEST SINGLE VIEW COMPLETED DATE/TIME: 07/11/2018 9:09 am REASON FOR STUDY: COPD exacerbation, PMH CHF COMPARISON: 06/18/2018. EXAM PARAMETERS: NUMBER OF VIEWS: One view. TECHNIQUE: Single frontal radiographic view of the chest acquired. RADIATION DOSE: NA LIMITATIONS: Overlying support apparatus. FINDINGS: LUNGS AND PLEURA: Chronic interstitial changes. No definite edema or pneumonia. MEDIASTINUM AND HILAR STRUCTURES: Stable. HEART AND VASCULAR STRUCTURES: Cardiomegaly. Pulmonary vascular redistribution. BONES: No acute findings. HARDWARE: None in the chest. OTHER: No other significant finding. IMPRESSION: Cardiomegaly and vascular congestion. TECHNICAL DOCUMENTATION: JOB ID: [id number] [employer]- All Rights Reserved Reading location - IP/workstation name: [email or web address]
[2018-07-11 10:50] LABS: HEMATOCRIT 31.2 % (36.0-47.0); MEAN CORPUSCULAR HEMOGLOBIN 28.2 pg (27.0-33.4); MEAN CORPUSCULAR VOLUME 88 fl (80-97); PLATELET COUNT 247 10^3/uL (150-450); RED BLOOD COUNT 3.55 10^6/uL (3.72-5.28); RED CELL DISTRIBUTION WIDTH 13.6 % (11.5-14.0); WHITE BLOOD COUNT 14.2 10^3/uL (4.0-10.5)
[2018-07-11 11:11] LABS: ANION GAP 14 (5-19)
[2018-07-11 11:18] LABS: ABSOLUTE LYMPHOCYTES# (MANUAL) 0.7 10^3/uL (0.5-4.7); ABSOLUTE NEUTROPHILS# (MANUAL) 13.2 10^3/uL (1.7-8.2); BASOPHILS % (MANUAL) 1 % (0-2); EOSINOPHILS % (MANUAL) 1 % (0-6); HYPOCHROMASIA SLIGHT; LYMPHOCYTES % (MANUAL) 5 % (13-45); MONOCYTES % (MANUAL) 0 % (3-13); PLATELET COMMENT ADEQUATE; SEGMENTED NEUTROPHILS % (MAN) 93 % (42-78); TOTAL CELLS COUNTED 100; TOXIC GRANULATION SLIGHT
[2018-07-11] MEDS ORDERED: FUROSEMIDE INJ/PF 100 MG/10 ML SDV IV ONE (11:22)
[2018-07-11 11:25] LABS: CREATINE KINASE MB 2.18 ng/mL (<4.55)
[2018-07-11 11:28] LABS: TROPONIN I 0.199 ng/mL
[2018-07-11 12:03] LABS: ALANINE AMINOTRANSFERASE 21 U/L (9-52); ALBUMIN 3.8 g/dL (3.5-5.0); ALKALINE PHOSPHATASE 106 U/L (38-126); ASPARTATE AMINO TRANSFERASE 20 U/L (14-36); BILIRUBIN,DIRECT 0.3 mg/dL (0.0-0.4); BILIRUBIN,TOTAL 0.3 mg/dL (0.2-1.3); BLOOD UREA NITROGEN 37 mg/dL (7-20); CALCIUM 9.1 mg/dL (8.4-10.2); CARBON DIOXIDE 25 mmol/L (22-30); CHLORIDE 108 mmol/L (98-107); CREATINE KINASE 134 U/L (30-135); GLUCOSE 98 mg/dL (75-110); POTASSIUM 3.7 mmol/L (3.6-5.0); SODIUM 147.4 mmol/L (137-145); TOTAL PROTEIN 7.1 g/dL (6.3-8.2)
[2018-07-11 13:16] LABS: APPEARANCE,URINE CLEAR; BILIRUBIN,URINE NEGATIVE (NEGATIVE); COLOR,URINE STRAW; GLUCOSE, URINE NEGATIVE (NEGATIVE); KETONES,URINE NEGATIVE (NEGATIVE); LEUKOCYTE ESTERASE,URINE TRACE (NEGATIVE); NITRITE,URINE NEGATIVE (NEGATIVE); PROTEIN,URINE 30 mg/dL (NEGATIVE); UROBILINOGEN,URINE NEGATIVE mg/dL (<2.0)
[2018-07-11] MEDS ORDERED: LEVOFLOXACIN 750 MG/D5W RTU 750 MG/150 ML RTUPB IV ONE (14:13)
[2018-07-11] MEDS ORDERED: ONDANSETRON 4 MG TAB.RAPDIS PO PRN (15:38)
[2018-07-11] MEDS ORDERED: ACETAMINOPHEN 325 MG TABLET PO PRN (15:38)
[2018-07-11] MEDS ORDERED: LEVALBUTEROL HCL NEB 1.25 MG/3 ML AMPUL NEB PRN (15:38)
[2018-07-11] MEDS: LANSOPRAZOLE 30 MG TAB.RAP.DR PO SCH (16:49)
[2018-07-11] MEDS: IPRATROPIUM/ALBUTEROL 0.5-2.5 MG/3 ML AMPUL NEB SCH ×3 (16:49→23:56)
--- NOTE | 2018-07-11 16:50 | PDOC H&P ---
<BENNIE BOURNE Danilo - Last Filed: 07/11/18 16:22> History of Present Illness Admission Date/PCP: 07/11/18 14:57 WENCESLAO PEGUERO DO Patient complains of: SHORTNESS OF BREATH History of Present Illness: BOOM TODD is a 62 year old female who presented to the emergency department with shortness of breath. This patient is very well-known to the hospitalist service, she has a PMH of CHF, COPD, HTN and is frequently admitted for CHF and/or COPD exacerbations. The patient reports she began experiencing symptoms of SOB roughly 16 hours prior to arrival. She endorses wheezing, dry cough, mild chest tightness, all exacerbated by physical exertion. The patient states she used 2 nebulizer treatments at home (6 hours apart) in order to help her symptoms, but the treatments offered no relief. This morning, when the patient woke up she reports that she was incredibly dyspneic, which prompted her son to call EMS. In route to [facility], EMS administered 125 mg Solu-Medrol IV and an albuterol/event nebulizer treatment. Initial vital signs upon arrival were BP 158/83 HR 99 RR 27 T 98.9 SPO2 90% on 2LNC. EKG demonstrates sinus tachycardia, no evidence of acute ischemia or infarct. CXR shows cardiomegaly and vascular congestion. Significant lab work includes leukocytosis (WBC 14), proBNP 1030, and Troponin 0.199. All other lab work is relatively benign. In the ED, the patient received 80mg Lasix IV for diuresis, back to back Duoneb treatments for her respiratory distress, and an initial dose of Levaquin IV. Upon assessment, the patient is resting comfortably in bed on supplemental oxygen via nasal cannula. She is alert and oriented 3, she is able to answer all questions without pause. Wheezing is auscultated in all lung tan, rhonchi in bilateral bases. No evidence of central or peripheral cyanosis. Respirations are equal and unlabored. S1-S2. No peripheral edema. Palpable pulses in all 4 extremities. No JVD. The patient endorses moderate shortness of breath but states she feels 'much better ' following her treatments. In addition to her shortness of breath, the patient endorses a mild temporal headache. The patient states that she is compliant with all of her home medications. She denies recent ill contacts or travel. Plan to admit to hospitalist service for COPD and CHF exacerbation. Past Medical History Cardiac Medical History: Reports: Congestive Heart Failure, Coronary Artery Disease, Hyperlipidema, Hypertension, Heart Murmur Pulmonary Medical History: Reports: Asthma, Bronchitis, Chronic Obstructive Pulmonary Disease (COPD) - O2 dependent - 2L, Pneumonia Denies: Tuberculosis GI Medical History: Denies: Cirrhosis, Crohn's Disease, Diverticulitis, Gastroesophageal Reflux Disease, Hepatitis, Hiatal Hernia Musculoskeltal Medical History: Reports: Gout Denies: Arthritis, Fibromyalgia Skin Medical History: Denies: Eczema, Psoriasis Psychiatric Medical History: Reports: Depression Traumatic Medical History: Denies: Gunshot Wound, Pneumothorax, Traumatic Brain Injury Hematology: Denies: Hemophilia, Sickle Cell Disease, Bleeding Tendencies Past Surgical History Past Surgical History: Reports: Section - x 4, Tubal Ligation Social History Information Source: Patient Lives with: Family Smoking Status: Current Every Day Smoker Number of Years Smokin Last Time Smoked: yesterday Frequency of Alcohol Use: Rare Hx Recreational Drug Use: No Drugs: None Hx Prescription Drug Abuse: No - Advance Directive Resuscitation Status: Full Code Family History Family History: CVA, Hypertension, Other - diabetes Parental Family History Reviewed: Yes Children Family History Reviewed: Unknown Sibling(s) Family History Reviewed.: Yes Medication/Allergy Home Medications: Albuterol Sulfate [Proair HFA Inhalation Aerosol 8.5 gm MDI] 2 puff IH DAILY 06/06 Amlodipine Besylate [Norvasc 10 mg Tablet] 10 mg PO DAILY 05/26/18 Aspirin [Aspirin EC] 81 mg PO DAILY 05/26/18 Budesonide/Formoterol Fumarate [Symbicort 160-4.5 Mcg Inhaler] 2 puff IH Q12 06/06 Cyanocobalamin (Vitamin B-12) [Vitamin B-12 100 mcg Tablet] 100 mcg PO DAILY 06/06 Ferrous Sulfate [Feosol 325 mg Tablet] 325 mg PO DAILY 05/26/18 Gabapentin [Neurontin 400 mg Capsule] 400 mg PO Q12 05/26/18 Hydralazine HCl [Apresoline 50 mg Tablet] 100 mg PO Q12 05/26/18 Lisinopril [Prinivil 5 mg Tablet] 5 mg PO DAILY 05/26/18 Tiotropium Wanda [Spiriva Handihaler 5 Cap/Kit (18 Mcg/Cap)] 1 cap IH DAILY Tramadol HCl [Ultram 50 mg Tablet] 50 mg PO Q12HP PRN 05/26/18 Albuterol Sulfate [Ventolin 0.083% Neb 2.5 mg/3 mL Ampul] 2.5 mg NEB RTQ2HP PRN #60 vial.neb 06/22/18 Ipratropium/Albuterol Sulfate [Duoneb 3 ml Ampul] 3 ml NEB [id number] #60 vial.neb 06/22/18 Furosemide [Lasix 40 mg Tablet] 60 mg PO DAILY #30 tablet 07/15/18 Levofloxacin [Levaquin 750 mg Tablet] 750 mg PO DAILY #1 tablet 07/15/18 Metoprolol Succinate [Toprol Xl 25 mg Tab.sr] 25 mg PO Q12 #60 tab.sr.24h Prednisone 20 mg PO DAILY #19 tablet 07/15/18 Allergies/Adverse Reactions: No Known Allergies Allergy (Verified 12/15/17 07:04) Review of Systems All systems: reviewed and no additional remarkable complaints except as stated Physical Exam Vital Signs: Temp Pulse Resp BP Pulse Ox 97.6 F 97 34 H 174/98 H 95 07/11/18 14:24 07/11/18 14:36 07/11/18 15:01 07/11/18 15:01 07/11/18 15:01 General appearance: PRESENT: morbidly obese Eye exam: PRESENT: conjunctiva pink, PERRLA Mouth exam: PRESENT: moist Teeth exam: PRESENT: poor dentation Neck exam: PRESENT: full ROM Respiratory exam: PRESENT: rhonchi, symmetrical, unlabored, wheezes Cardiovascular exam: PRESENT: RRR, +S1, +S2 Pulses: PRESENT: normal radial pulses, normal dorsalis pedis pul GI/Abdominal exam: PRESENT: normal bowel sounds, soft. ABSENT: tenderness Rectal exam: PRESENT: deferred Extremities exam: PRESENT: full ROM. ABSENT: pedal edema Musculoskeletal exam: PRESENT: ambulatory, full ROM Neurological exam: PRESENT: alert, awake, oriented to person, oriented to place , oriented to time, oriented to situation Psychiatric exam: PRESENT: appropriate affect Skin exam: PRESENT: dry, intact, normal color, warm Results Impressions: Chest X-Ray 07/11/18 08:59 IMPRESSION: Cardiomegaly and vascular congestion. Status: Imported from PACS Assessment & Plan - Diagnosis (1) Acute and chronic respiratory failure QualifierTitle: Respiratory failure complication: unspecified whether with hypoxia or hypercapnia Qualified Code(s): J96.20 - Acute and chronic respiratory failure, unspecified whether with hypoxia or hypercapnia Is this a current diagnosis for this admission?: Yes Plan: Secondary to CHF and COPD exacerbation ProBNP elevated 1030, will recheck in a.m. EKG shows sinus tachycardia CXR demonstrates bilateral pulmonary edema Wheezing auscultated in all lung tan Diuresis and ED, continue with daily IV Lasix IV steroids initiated by EMS continue Solu-Medrol IV 60 mg every 8 hours Scheduled DuoNeb treatments every 4 hours PRN Xopenex every 4 hours Blood cultures pending Empiric antibiotic coverage with Levaquin in the setting of severe COPD exacerbation (2) COPD exacerbation Is this a current diagnosis for this admission?: Yes Plan: See plan as above Patient denies recent ill contacts No plan for Mucinex at this time, patient denies productive cough (3) CHF (congestive heart failure) QualifierTitle: Heart failure type: unspecified Heart failure chronicity : acute on chronic Qualified Code(s): I50.9 - Heart failure, unspecified Is this a current diagnosis for this admission?: Yes Plan: Patient endorses history of CHF ProBNP 1030 Diuresed with 80 mg Lasix IV in ED With 40 mg Lasix IV daily Aspirin and statin therapy (4) Hypertension QualifierTitle: Hypertension type: essential hypertension Is this a current diagnosis for this admission?: Yes Plan: Patient endorses history of hypertension Restart home antihypertensives (5) Tobacco abuse Is this a current diagnosis for this admission?: Yes Plan: Patient endorses approximately 50 pack year smoking history Nicotine patch provided (6) Full code status Is this a current diagnosis for this admission?: Yes - Time Time Spent: 30 to 50 Minutes Smoking Cessation Education: 3 to 10 minutes Anticipated discharge: Home Within: within 72 hours - Inpatient Certification Based on my medical assessment, after consideration of the patient's comorbidities, presenting symptoms, or acuity I expect that the services needed warrant INPATIENT care.: Yes I certify that my determination is in accordance with my understanding of Medicare's requirements for reasonable and necessary INPATIENT services [42 CFR 412.3e].: Yes Medical Necessity: Risk of Complication if Not Cared For in Hospital - Plan Summary Plan Summary: IV LASIX FOR VOLUME OVERLOAD. STEROIDS/NEBS/ABX FOR COPD EXACERBATION. <RUFINO ENRIQUEZ M - Last Filed: 07/24/18 15:36> History of Present Illness Admission Date/PCP: 07/11/18 14:57 WENCESLAO PEGUERO DO History of Present Illness: BOOM TODD is a 62 year old female Physical Exam Vital Signs: Temp Pulse Resp BP Pulse Ox 97.5 F 78 18 184/98 H 97 07/15/18 14:30 07/15/18 14:30 07/15/18 14:30 07/15/18 14:30 07/15/18 14:30 Results Laboratory Results: 07/15/18 05:59 07/15/18 05:59 07/11/18 07/12/18 07/12/18 18:57 00:55 07:17 Troponin I 0.370 0.338 0.221 NT-Pro-B Natriuret Pep 9090 H 07/13/18 07/14/18 07/15/18 06:02 08:32 05:59 Troponin I NT-Pro-B Natriuret Pep 6010 H 4300 H 2870 H Impressions: Chest X-Ray 07/11/18 08:59 IMPRESSION: Cardiomegaly and vascular congestion. Provider Note Provider Note: I have discussed the patient in detail with KAT Bourne. I am in agreement with her evaluation and plan.
[2018-07-11] MEDS ORDERED: HYDRALAZINE HCL INJ/PF 20 MG/1 ML SDV ONE (20:23)
--- NOTE | 2018-07-11 22:19 | EKG REPORT ---
SEVERITY:- ABNORMAL ECG - SINUS TACHYCARDIA LVH WITH IVCD AND SECONDARY REPOL ABNRM : Confirmed by: Lauren Wick 11-Jul-2018 22:18:42
[2018-07-11] MEDS: METHYLPREDNISOLONE INJ 125 MG/2 ML SDV IV SCH (22:34)
[2018-07-12] MEDS: IPRATROPIUM/ALBUTEROL 0.5-2.5 MG/3 ML AMPUL NEB SCH ×5 (04:10→21:05)
[2018-07-12] MEDS: METHYLPREDNISOLONE INJ 125 MG/2 ML SDV IV SCH ×3 (06:36→23:06)
[2018-07-12] MEDS: LANSOPRAZOLE 30 MG TAB.RAP.DR PO SCH ×2 (06:37→16:11)
[2018-07-12 07:33] LABS: HEMATOCRIT 28.2 % (36.0-47.0); HEMOGLOBIN 9.5 g/dL (12.0-15.5); MEAN CORPUSCULAR HEMOGLOBIN 29.5 pg (27.0-33.4); MEAN CORPUSCULAR HGB CONC 33.8 g/dL (32.0-36.0); MEAN CORPUSCULAR VOLUME 87 fl (80-97); PLATELET COUNT 234 10^3/uL (150-450); RED BLOOD COUNT 3.23 10^6/uL (3.72-5.28); RED CELL DISTRIBUTION WIDTH 13.5 % (11.5-14.0); WHITE BLOOD COUNT 9.3 10^3/uL (4.0-10.5)
[2018-07-12 07:51] LABS: ANION GAP 17 (5-19); BLOOD UREA NITROGEN 45 mg/dL (7-20); CALCIUM 9.1 mg/dL (8.4-10.2); CARBON DIOXIDE 21 mmol/L (22-30); CHLORIDE 107 mmol/L (98-107); CHOLESTEROL 169.46 mg/dL (0-200); GLUCOSE 149 mg/dL (75-110); PHOSPHORUS 3.5 mg/dL (2.5-4.5); POTASSIUM 3.7 mmol/L (3.6-5.0); SODIUM 145.1 mmol/L (137-145); TRIGLYCERIDES 83 mg/dL (<150)
[2018-07-12 08:04] LABS: TROPONIN I 0.221 ng/mL
[2018-07-12 08:05] LABS: DIRECT LDL 92 mg/dL (<100)
[2018-07-12] MEDS ORDERED: HYDRALAZINE HCL INJ/PF 20 MG/1 ML SDV IV PRN (08:31)
[2018-07-12] MEDS ORDERED: LISINOPRIL 10 MG TABLET ONE (09:07)
[2018-07-12] MEDS ORDERED: ASPIRIN 81 MG TABLET, ENT COATED PO ONE (09:07)
[2018-07-12] MEDS ORDERED: CARVEDILOL 6.25 MG TABLET ONE (09:07)
[2018-07-12] MEDS ORDERED: HYDRALAZINE HCL 50 MG TABLET ONE ×2 (09:08→09:16)
[2018-07-12] MEDS ORDERED: FERROUS SULFATE 325 MG TABLET PO ONE (09:13)
[2018-07-12] MEDS ORDERED: AMLODIPINE BESYLATE 10 MG TABLET ONE (09:13)
[2018-07-12] MEDS ORDERED: GABAPENTIN 400 MG CAPSULE ONE (09:13)
[2018-07-12] MEDS: ASPIRIN 81 MG TABLET, ENT COATED PO SCH (09:15)
[2018-07-12] MEDS: HYDRALAZINE HCL 50 MG TABLET PO SCH ×2 (09:15→22:22)
[2018-07-12] MEDS: FUROSEMIDE INJ/PF 40 MG/4 ML SDV IV SCH (09:18)
[2018-07-12] MEDS: FERROUS SULFATE 325 MG TABLET PO SCH (09:19)
[2018-07-12] MEDS: AMLODIPINE BESYLATE 10 MG TABLET PO SCH (09:20)
[2018-07-12] MEDS: ENOXAPARIN SODIUM INJ 30 MG/0.3 ML DISP.SYRIN SUBCUT SCH (09:20)
[2018-07-12] MEDS: GABAPENTIN 400 MG CAPSULE PO SCH ×2 (09:20→22:23)
[2018-07-12] MEDS ORDERED: LISINOPRIL 5 MG TABLET PO SCH ×2 (10:00→13:22)
[2018-07-12] MEDS ORDERED: ALBUTEROL SULFATE HFA (90 MCG/PUFF) 200 PUFF/8.5 GM MDI IH SCH (10:00)
[2018-07-12] MEDS ORDERED: (PENDING PHARMACY ID) (Cyanocobalamin (Vitamin B-12) [Vitamin B-12 100 Mcg Tablet] 100 MCG PO SCH (10:00)
[2018-07-12] MEDS ORDERED: CARVEDILOL 12.5 MG TABLET PO SCH (10:00)
[2018-07-12] MEDS ORDERED: LEVOFLOXACIN 750 MG TABLET PO SCH (10:00)
[2018-07-12] MEDS: SALMETEROL XINAFOATE DISKUS 50 MCG/1 DOSE 28 DOSE IH SCH ×2 (11:00→22:23)
[2018-07-12] MEDS: TIOTROPIUM BROMIDE DPI 5 CAP/KIT (18 MCG/CAP) IH SCH (11:00)
[2018-07-12] MEDS ORDERED: METOPROLOL TARTRATE PF/INJ 5 MG/5 ML SDV IV PRN (13:22)
[2018-07-12] MEDS ORDERED: HYDRALAZINE HCL INJ/PF 20 MG/1 ML SDV ONE (13:22)
--- NOTE | 2018-07-12 21:19 | PDOC PROGRESS REPORT ---
<BENNIE LANDIS Danilo - Last Filed: 07/12/18 20:18> Subjective Progress Note for:: 07/12/18 Subjective:: 62 y.o. F with a PMH of CHF, COPD (on 2L home O2) and HTN admitted for a COPD and CHF exacerbation. The patient was seen this morning on rounds. She is resting comfortably in bed on supplemental oxygen via nasal cannula. The patient states she feels 'much better' today, but endorses becoming SOB when ambulating to the bathroom. Upon assessment, wheezing can be auscultated in all lung tan. No central or peripheral cyanosis. S1S2. No murmur/rubs/gallops. No evidence of peripheral edema. Nursing staff reports the patient's SBP has consistently been > 170. Plan to readjust home anti-hypertensive dosages. Reason For Visit: COPD EXACERBATION Physical Exam Vital Signs: Temp Pulse Resp BP Pulse Ox 98.7 F 84 20 167/75 H 100 07/12/18 16:00 07/12/18 16:00 07/12/18 16:00 07/12/18 16:00 07/12/18 16:00 Intake & Output 07/11/18 07/12/18 07/13/18 06:59 06:59 06:59 Intake Total 1192 502 Balance 1192 502 Weight 108.3 kg General appearance: PRESENT: no acute distress Eye exam: PRESENT: conjunctiva pink, PERRLA Mouth exam: PRESENT: moist Teeth exam: PRESENT: poor dentation Neck exam: PRESENT: full ROM Respiratory exam: PRESENT: symmetrical, unlabored, wheezes. ABSENT: crackles, rales, rhonchi Cardiovascular exam: PRESENT: +S1, +S2 Pulses: PRESENT: normal radial pulses, normal dorsalis pedis pul GI/Abdominal exam: PRESENT: normal bowel sounds, soft. ABSENT: tenderness Rectal exam: PRESENT: deferred Extremities exam: PRESENT: full ROM. ABSENT: pedal edema Musculoskeletal exam: PRESENT: ambulatory, full ROM Neurological exam: PRESENT: alert, awake, oriented to person, oriented to place , oriented to time, oriented to situation Psychiatric exam: PRESENT: appropriate affect Skin exam: PRESENT: dry, intact, normal color, warm Results Laboratory Results: 07/12/18 07:17 07/12/18 07:17 07/12/18 07/12/18 07/12/18 07:17 07:17 07:17 WBC 9.3 RBC 3.23 L Hgb 9.5 L Hct 28.2 L MCV 87 MCH 29.5 MCHC 33.8 RDW 13.5 Plt Count 234 Sodium 145.1 H Potassium 3.7 Chloride 107 Carbon Dioxide 21 L Anion Gap 17 BUN 45 H Creatinine 2.95 H Est GFR ( Amer) 20 L Est GFR (Non-Af Amer) 16 L Glucose 149 H Calcium 9.1 Phosphorus 3.5 Magnesium 1.4 L Triglycerides 83 Cholesterol 169.46 LDL Cholesterol Direct 92 VLDL Cholesterol 17.0 HDL Cholesterol 54 TSH 0.37 L 07/11/18 07/12/18 07/12/18 18:57 00:55 07:17 Troponin I 0.370 0.338 0.221 NT-Pro-B Natriuret Pep 9090 H Impressions: Chest X-Ray 07/11/18 08:59 IMPRESSION: Cardiomegaly and vascular congestion. Status: Imported from PACS Assessment & Plan - Diagnosis (1) Acute and chronic respiratory failure QualifierTitle: Respiratory failure complication: unspecified whether with hypoxia or hypercapnia Qualified Code(s): J96.20 - Acute and chronic respiratory failure, unspecified whether with hypoxia or hypercapnia Is this a current diagnosis for this admission?: Yes Plan: Secondary to CHF and COPD exacerbation ProBNP increased from 1030 -->9000, will recheck in a.m. EKG shows sinus rhythm CXR demonstrates bilateral pulmonary edema Wheezing auscultated in all lung tan Diuresis and ED, continue with daily IV Lasix IV steroids initiated by EMS continue Solu-Medrol IV 60 mg every 6 hours Scheduled DuoNeb treatments every 4 hours PRN Xopenex every 4 hours Blood cultures pending Empiric antibiotic coverage with Levaquin in the setting of severe COPD exacerbation (2) COPD exacerbation Is this a current diagnosis for this admission?: Yes Plan: See plan as above Patient denies recent ill contacts No plan for Mucinex at this time, patient denies productive cough (3) CHF (congestive heart failure) QualifierTitle: Heart failure type: unspecified Heart failure chronicity : acute on chronic Qualified Code(s): I50.9 - Heart failure, unspecified Is this a current diagnosis for this admission?: Yes Plan: Patient endorses history of CHF ProBNP 9000 today Diuresed with 80 mg Lasix IV in ED With 40 mg Lasix IV daily Aspirin and statin therapy (4) Hypertension QualifierTitle: Hypertension type: essential hypertension Qualified Code( s): I10 - Essential (primary) hypertension Is this a current diagnosis for this admission?: Yes Plan: Patient endorses history of hypertension Nursing staff reports poor BP control with home regimen Increase Lisinopril dosage Change Carvedilol 12.5mg to Toprol XL 25mg BID Hydralazine and Lopressor IV PRN (5) Tobacco abuse Is this a current diagnosis for this admission?: Yes Plan: Patient endorses approximately 50 pack year smoking history Nicotine patch provided (6) Full code status Is this a current diagnosis for this admission?: Yes - Time Time Spent with patient: 15-24 minutes Medications reviewed and adjusted accordingly: Yes Anticipated discharge: Home Within: within 72 hours - Inpatient Certification Based on my medical assessment, after consideration of the patient's comorbidities, presenting symptoms, or acuity I expect that the services needed warrant INPATIENT care.: Yes I certify that my determination is in accordance with my understanding of Medicare's requirements for reasonable and necessary INPATIENT services [42 CFR 412.3e].: Yes Medical Necessity: Risk of Complication if Not Cared For in Hospital <RUFINO ENRIQUEZ M - Last Filed: 07/24/18 15:44> Subjective Reason For Visit: COPD EXACERBATION Physical Exam Vital Signs: Temp Pulse Resp BP Pulse Ox 97.5 F 78 18 184/98 H 97 07/15/18 14:30 07/15/18 14:30 07/15/18 14:30 07/15/18 14:30 07/15/18 14:30 Results Laboratory Results: 07/15/18 05:59 07/15/18 05:59 07/11/18 07/12/18 07/12/18 18:57 00:55 07:17 Troponin I 0.370 0.338 0.221 NT-Pro-B Natriuret Pep 9090 H 07/13/18 07/14/18 07/15/18 06:02 08:32 05:59 Troponin I NT-Pro-B Natriuret Pep 6010 H 4300 H 2870 H Impressions: Chest X-Ray 07/11/18 08:59 IMPRESSION: Cardiomegaly and vascular congestion. Provider Note Provider Note: I have discussed this patient in detail with KAT Landis. I am in agreement with her evaluation and plan.
[2018-07-12] MEDS: METOPROLOL SUCCINATE 25 MG TAB.SR.24H PO SCH (22:23)
[2018-07-13] MEDS: IPRATROPIUM/ALBUTEROL 0.5-2.5 MG/3 ML AMPUL NEB SCH ×7 (00:20→23:43)
[2018-07-13] MEDS: METHYLPREDNISOLONE INJ 125 MG/2 ML SDV IV SCH ×4 (05:39→23:59)
[2018-07-13] MEDS: LANSOPRAZOLE 30 MG TAB.RAP.DR PO SCH ×2 (05:41→18:20)
[2018-07-13 06:59] LABS: ANION GAP 17 (5-19); BLOOD UREA NITROGEN 58 mg/dL (7-20); CALCIUM 8.6 mg/dL (8.4-10.2); CARBON DIOXIDE 20 mmol/L (22-30); CHLORIDE 103 mmol/L (98-107); GLUCOSE 169 mg/dL (75-110); PHOSPHORUS 4.2 mg/dL (2.5-4.5); POTASSIUM 3.7 mmol/L (3.6-5.0); SODIUM 139.5 mmol/L (137-145)
[2018-07-13 08:18] LABS: HEMOGLOBIN 9.3 g/dL (12.0-15.5); MEAN CORPUSCULAR HEMOGLOBIN 29.5 pg (27.0-33.4); MEAN CORPUSCULAR HGB CONC 33.3 g/dL (32.0-36.0); MEAN CORPUSCULAR VOLUME 89 fl (80-97); PLATELET COUNT 234 10^3/uL (150-450); RED BLOOD COUNT 3.16 10^6/uL (3.72-5.28); RED CELL DISTRIBUTION WIDTH 13.3 % (11.5-14.0)
[2018-07-13] MEDS: FUROSEMIDE INJ/PF 40 MG/4 ML SDV IV SCH (09:20)
[2018-07-13] MEDS: HYDRALAZINE HCL 50 MG TABLET PO SCH ×2 (09:21→22:44)
[2018-07-13] MEDS: FERROUS SULFATE 325 MG TABLET PO SCH (09:22)
[2018-07-13] MEDS: AMLODIPINE BESYLATE 10 MG TABLET PO SCH (09:22)
[2018-07-13] MEDS: LISINOPRIL 10 MG TABLET PO SCH (09:22)
[2018-07-13] MEDS: GABAPENTIN 400 MG CAPSULE PO SCH ×2 (09:22→22:45)
[2018-07-13] MEDS: METOPROLOL SUCCINATE 25 MG TAB.SR.24H PO SCH ×2 (09:23→22:45)
[2018-07-13] MEDS: ENOXAPARIN SODIUM INJ 30 MG/0.3 ML DISP.SYRIN SUBCUT SCH (09:23)
[2018-07-13] MEDS: SALMETEROL XINAFOATE DISKUS 50 MCG/1 DOSE 28 DOSE IH SCH ×2 (09:23→22:45)
[2018-07-13] MEDS: LEVOFLOXACIN 750 MG TABLET PO SCH (09:23)
[2018-07-13] MEDS: TIOTROPIUM BROMIDE DPI 5 CAP/KIT (18 MCG/CAP) IH SCH (09:24)
[2018-07-13] MEDS: ASPIRIN 81 MG TABLET, ENT COATED PO SCH (09:25)
--- NOTE | 2018-07-13 18:23 | PDOC PROGRESS REPORT ---
Addendum entered and electronically signed by BENNIE LANDIS NP 07/13/18 18 :25: Provider Note Provider Note: LEUKOCYTOSIS: WBC JUMPED FROM 9.3-->17 TODAY. LIKELY SECONDARY TO IV STEROIDS. PATIENT REMAINS AFEBRILS AND NONTOXIC APPEARING. IN FACT, HER RESPIRATORY STATUS IS IMPROVING. Original Note: <BENNIE LANDIS - Last Filed: 07/13/18 18:24> Subjective Progress Note for:: 07/13/18 Subjective:: 62 y.o. F with a PMH of CHF, COPD (on 2L home O2) and HTN admitted for a COPD and CHF exacerbation. The patient was seen this morning on rounds. She is resting comfortably in bed on supplemental oxygen via nasal cannula. The patient states she feels 'much better' today, but endorses becoming SOB when ambulating to the bathroom. Denies wheezing. Upon assessment, wheezing can be auscultated in all R lung tan and prominent in LLL. No central or peripheral cyanosis. S1S2. No murmur/ rubs/gallops. No evidence of peripheral edema. Blood pressure remains elevated despite yesterday's adjustments to PO medications. Plan to increase Toprol XL dosage from 25 to 50mg BID. Reason For Visit: COPD EXACERBATION Physical Exam Vital Signs: Temp Pulse Resp BP Pulse Ox 98.4 F 75 16 166/83 H 98 07/13/18 15:33 07/13/18 15:37 07/13/18 15:37 07/13/18 15:33 07/13/18 15:37 Intake & Output 07/12/18 07/13/18 07/14/18 06:59 06:59 06:59 Intake Total 1192 1088 1063 Output Total 4 Balance 1192 1088 1059 Weight 108.3 kg 89.6 kg General appearance: PRESENT: morbidly obese Eye exam: PRESENT: conjunctiva pink, PERRLA Mouth exam: PRESENT: moist Teeth exam: PRESENT: poor dentation Neck exam: PRESENT: full ROM. ABSENT: JVD Respiratory exam: PRESENT: crackles - R>L, symmetrical, unlabored, wheezes Cardiovascular exam: PRESENT: +S1, +S2 Pulses: PRESENT: normal radial pulses, normal dorsalis pedis pul GI/Abdominal exam: PRESENT: soft. ABSENT: tenderness Rectal exam: PRESENT: deferred Extremities exam: PRESENT: full ROM. ABSENT: pedal edema Musculoskeletal exam: PRESENT: ambulatory, full ROM Neurological exam: PRESENT: alert, awake, oriented to person, oriented to place , oriented to time, oriented to situation Psychiatric exam: PRESENT: appropriate affect Skin exam: PRESENT: dry, intact, normal color Results Laboratory Results: 07/13/18 06:02 07/13/18 06:02 07/13/18 07/13/18 06:02 06:02 WBC 17.0 H RBC 3.16 L Hgb 9.3 L Hct 28.0 L MCV 89 MCH 29.5 MCHC 33.3 RDW 13.3 Plt Count 234 Sodium 139.5 Potassium 3.7 Chloride 103 Carbon Dioxide 20 L Anion Gap 17 BUN 58 H Creatinine 2.98 H Est GFR ( Amer) 19 L Est GFR (Non-Af Amer) 16 L Glucose 169 H Calcium 8.6 Phosphorus 4.2 Magnesium 1.3 L 07/11/18 07/12/18 07/12/18 18:57 00:55 07:17 Troponin I 0.370 0.338 0.221 NT-Pro-B Natriuret Pep 9090 H 07/13/18 06:02 Troponin I NT-Pro-B Natriuret Pep 6010 H Impressions: Chest X-Ray 07/11/18 08:59 IMPRESSION: Cardiomegaly and vascular congestion. Status: Imported from PACS Assessment & Plan - Diagnosis (1) Acute and chronic respiratory failure QualifierTitle: Respiratory failure complication: unspecified whether with hypoxia or hypercapnia Qualified Code(s): J96.20 - Acute and chronic respiratory failure, unspecified whether with hypoxia or hypercapnia Is this a current diagnosis for this admission?: Yes Plan: Secondary to CHF and COPD exacerbation ProBNP decreased today 1030 -->9000-->6010, will recheck in a.m. EKG shows sinus rhythm CXR demonstrates bilateral pulmonary edema Wheezing auscultated in all R lung tan and LLL Diuresis and ED, continue with daily IV Lasix - will administer one time dose 20mg lasix tonight for b/l crackles R>L IV steroids initiated by EMS continue Solu-Medrol IV 60 mg every 6 hours Scheduled DuoNeb treatments every 4 hours PRN Xopenex every 4 hours Blood cultures pending Empiric antibiotic coverage with Levaquin in the setting of severe COPD exacerbation (2) COPD exacerbation Is this a current diagnosis for this admission?: Yes Plan: See plan as above Patient denies recent ill contacts No plan for Mucinex at this time, patient denies productive cough (3) CHF (congestive heart failure) QualifierTitle: Heart failure type: unspecified Heart failure chronicity : acute on chronic Qualified Code(s): I50.9 - Heart failure, unspecified Is this a current diagnosis for this admission?: Yes Plan: Patient endorses history of CHF ProBNP 6010 today Diuresed with 80 mg Lasix IV in ED Continue with 40 mg Lasix IV daily Aspirin and statin therapy (4) Hypertension QualifierTitle: Hypertension type: essential hypertension Qualified Code( s): I10 - Essential (primary) hypertension Is this a current diagnosis for this admission?: Yes Plan: Patient endorses history of hypertension Nursing staff reports poor BP control with home regimen Increase Lisinopril dosage Increase Toprol XL 25mg BID to 50mg BID Hydralazine and Lopressor IV PRN (5) Tobacco abuse Is this a current diagnosis for this admission?: Yes Plan: Patient endorses approximately 50 pack year smoking history Nicotine patch provided (6) Full code status Is this a current diagnosis for this admission?: Yes - Time Time Spent with patient: 15-24 minutes Medications reviewed and adjusted accordingly: Yes Anticipated discharge: Home Within: within 48 hours - Inpatient Certification Based on my medical assessment, after consideration of the patient's comorbidities, presenting symptoms, or acuity I expect that the services needed warrant INPATIENT care.: Yes I certify that my determination is in accordance with my understanding of Medicare's requirements for reasonable and necessary INPATIENT services [42 CFR 412.3e].: Yes Medical Necessity: Risk of Complication if Not Cared For in Hospital - Plan Summary Plan Summary: INCREASE TOPROL XL DOSAGE. ONE TIME IV LASIX TONIGHT, CONTINUE DAILY LASIX. <RUFINO ENRIQUEZ - Last Filed: 07/24/18 18:39> Subjective Reason For Visit: COPD EXACERBATION Physical Exam Vital Signs: Temp Pulse Resp BP Pulse Ox 97.5 F 78 18 184/98 H 97 07/15/18 14:30 07/15/18 14:30 07/15/18 14:30 07/15/18 14:30 07/15/18 14:30 Results Laboratory Results: 07/15/18 05:59 07/15/18 05:59 07/11/18 07/12/18 07/12/18 18:57 00:55 07:17 Troponin I 0.370 0.338 0.221 NT-Pro-B Natriuret Pep 9090 H 07/13/18 07/14/18 07/15/18 06:02 08:32 05:59 Troponin I NT-Pro-B Natriuret Pep 6010 H 4300 H 2870 H Impressions: Chest X-Ray 07/11/18 08:59 IMPRESSION: Cardiomegaly and vascular congestion. Provider Note Provider Note: I have discussed the patient with KAT Landis. I am in agreement with her evaluation and plan.
[2018-07-13] MEDS ORDERED: FUROSEMIDE INJ/PF 20 MG/2 ML SDV IV ONE (19:00)
[2018-07-14] MEDS: IPRATROPIUM/ALBUTEROL 0.5-2.5 MG/3 ML AMPUL NEB SCH ×5 (04:09→19:55)
[2018-07-14] MEDS: METHYLPREDNISOLONE INJ 125 MG/2 ML SDV IV SCH ×4 (06:52→23:27)
[2018-07-14] MEDS: LANSOPRAZOLE 30 MG TAB.RAP.DR PO SCH ×2 (06:53→17:20)
[2018-07-14 09:13] LABS: ANION GAP 15 (5-19); BLOOD UREA NITROGEN 71 mg/dL (7-20); CALCIUM 8.7 mg/dL (8.4-10.2); CARBON DIOXIDE 21 mmol/L (22-30); CHLORIDE 100 mmol/L (98-107); GLUCOSE 132 mg/dL (75-110); PHOSPHORUS 3.9 mg/dL (2.5-4.5); POTASSIUM 3.8 mmol/L (3.6-5.0)
[2018-07-14] MEDS: FERROUS SULFATE 325 MG TABLET PO SCH (10:18)
[2018-07-14] MEDS: HYDRALAZINE HCL 50 MG TABLET PO SCH ×2 (10:18→22:14)
[2018-07-14] MEDS: ASPIRIN 81 MG TABLET, ENT COATED PO SCH (10:18)
[2018-07-14] MEDS: ENOXAPARIN SODIUM INJ 30 MG/0.3 ML DISP.SYRIN SUBCUT SCH (10:18)
[2018-07-14] MEDS: LISINOPRIL 10 MG TABLET PO SCH (10:19)
[2018-07-14] MEDS: AMLODIPINE BESYLATE 10 MG TABLET PO SCH (10:19)
[2018-07-14] MEDS: GABAPENTIN 400 MG CAPSULE PO SCH ×2 (10:19→22:15)
[2018-07-14] MEDS: SALMETEROL XINAFOATE DISKUS 50 MCG/1 DOSE 28 DOSE IH SCH ×2 (10:20→22:15)
[2018-07-14] MEDS: TIOTROPIUM BROMIDE DPI 5 CAP/KIT (18 MCG/CAP) IH SCH (10:20)
[2018-07-14] MEDS: METOPROLOL SUCCINATE 25 MG TAB.SR.24H PO SCH ×2 (10:20→22:14)
[2018-07-14] MEDS ORDERED: MAGNESIUM SULFATE/D5W 1 GM/100 ML RTUPB IV ONE (10:30)
[2018-07-14] MEDS ORDERED: POTASSIUM CHLORIDE 10 MEQ CAPSULE.ER PO ONE (10:30)
--- NOTE | 2018-07-14 20:44 | PDOC PROGRESS REPORT ---
<BENNIE LANDIS A - Last Filed: 07/14/18 20:37> Subjective Progress Note for:: 07/14/18 Subjective:: 62 y.o. F with a PMH of CHF, COPD (on 2L home O2) and HTN admitted for a COPD and CHF exacerbation. The patient was seen this morning on rounds. She is resting comfortably in bed on supplemental oxygen via nasal cannula. The patient states she feels 'much better' today and no longer becomes SOB when ambulating to the bathroom. Upon assessment, mild wheezing can be auscultated in all lung tan R>L. No central or peripheral cyanosis. S1S2. No murmur/rubs/gallops. No evidence of peripheral edema. Plan to ambulate patient around the unit today. Continue steroids, antibiotics and nebulizers. Reason For Visit: COPD EXACERBATION Physical Exam Vital Signs: Temp Pulse Resp BP Pulse Ox 98.6 F 72 16 135/67 H 96 07/14/18 16:00 07/14/18 19:55 07/14/18 19:55 07/14/18 16:00 07/14/18 19:55 Intake & Output 07/13/18 07/14/18 07/15/18 06:59 06:59 06:59 Intake Total 1088 2793 1820 Output Total 4 Balance 1088 2789 1820 Weight 89.6 kg 90.2 kg General appearance: PRESENT: no acute distress, morbidly obese Head exam: PRESENT: atraumatic Eye exam: PRESENT: conjunctiva pink, PERRLA Mouth exam: PRESENT: moist Teeth exam: PRESENT: poor dentation Neck exam: PRESENT: full ROM Respiratory exam: PRESENT: symmetrical, unlabored, wheezes Cardiovascular exam: PRESENT: RRR, +S1, +S2 Pulses: PRESENT: normal radial pulses, normal dorsalis pedis pul Vascular exam: PRESENT: normal capillary refill GI/Abdominal exam: PRESENT: normal bowel sounds, soft. ABSENT: distended, tenderness Rectal exam: PRESENT: deferred Extremities exam: PRESENT: full ROM. ABSENT: pedal edema Musculoskeletal exam: PRESENT: ambulatory, full ROM Neurological exam: PRESENT: alert, awake, oriented to person, oriented to place , oriented to time, oriented to situation Psychiatric exam: PRESENT: appropriate affect Skin exam: PRESENT: dry, intact, normal color Results Laboratory Results: 07/13/18 06:02 07/14/18 08:32 07/14/18 08:32 Sodium 136.0 L Potassium 3.8 Chloride 100 Carbon Dioxide 21 L Anion Gap 15 BUN 71 H Creatinine 2.84 H Est GFR ( Amer) 20 L Est GFR (Non-Af Amer) 17 L Glucose 132 H Calcium 8.7 Phosphorus 3.9 Magnesium 1.6 07/11/18 07/12/18 07/12/18 18:57 00:55 07:17 Troponin I 0.370 0.338 0.221 NT-Pro-B Natriuret Pep 9090 H 07/13/18 07/14/18 06:02 08:32 Troponin I NT-Pro-B Natriuret Pep 6010 H 4300 H Impressions: Chest X-Ray 07/11/18 08:59 IMPRESSION: Cardiomegaly and vascular congestion. Status: Imported from PACS Assessment & Plan - Diagnosis (1) Acute and chronic respiratory failure QualifierTitle: Respiratory failure complication: unspecified whether with hypoxia or hypercapnia Qualified Code(s): J96.20 - Acute and chronic respiratory failure, unspecified whether with hypoxia or hypercapnia Is this a current diagnosis for this admission?: Yes Plan: Secondary to CHF and COPD exacerbation ProBNP decreased today 1030 -->9000-->6010-->4300, no longer need to trend EKG shows sinus rhythm CXR demonstrates bilateral pulmonary edema Wheezing auscultated in all lung tan R>L Diuresis and ED, continue with daily PO Lasix. Increase patient's home dose IV steroids initiated by EMS continue Solu-Medrol IV 60 mg every 6 hours, begin weaning tomorrow Scheduled DuoNeb treatments every 4 hours PRN Xopenex every 4 hours Blood cultures pending Empiric antibiotic coverage with Levaquin in the setting of severe COPD exacerbation (2) COPD exacerbation Is this a current diagnosis for this admission?: Yes Plan: See plan as above Patient denies recent ill contacts No plan for Mucinex at this time, patient denies productive cough (3) CHF (congestive heart failure) QualifierTitle: Heart failure type: unspecified Heart failure chronicity : acute on chronic Qualified Code(s): I50.9 - Heart failure, unspecified Is this a current diagnosis for this admission?: Yes Plan: Patient endorses history of CHF ProBNP 4300 today Diuresed with 80 mg Lasix IV in ED 60 mg Lasix PO daily Aspirin and statin therapy (4) Hypertension QualifierTitle: Hypertension type: essential hypertension Qualified Code( s): I10 - Essential (primary) hypertension Is this a current diagnosis for this admission?: Yes Plan: Patient endorses history of hypertension Nursing staff reports poor BP control with home regimen Increase Lisinopril dosage Toprol XL 50mg BID Hydralazine and Lopressor IV PRN (5) Tobacco abuse Is this a current diagnosis for this admission?: Yes Plan: Patient endorses approximately 50 pack year smoking history Nicotine patch provided (6) Full code status Is this a current diagnosis for this admission?: Yes - Time Time Spent with patient: 15-24 minutes Medications reviewed and adjusted accordingly: Yes Anticipated discharge: Home Within: within 48 hours - Inpatient Certification Based on my medical assessment, after consideration of the patient's comorbidities, presenting symptoms, or acuity I expect that the services needed warrant INPATIENT care.: Yes I certify that my determination is in accordance with my understanding of Medicare's requirements for reasonable and necessary INPATIENT services [42 CFR 412.3e].: Yes Medical Necessity: Need for Nebulizer Therapy and Monitoring of Response, Need for IV Antibiotics <RUFINO ENRIQUEZ - Last Filed: 07/24/18 18:41> Subjective Reason For Visit: COPD EXACERBATION Physical Exam Vital Signs: Temp Pulse Resp BP Pulse Ox 97.5 F 78 18 184/98 H 97 07/15/18 14:30 07/15/18 14:30 07/15/18 14:30 07/15/18 14:30 07/15/18 14:30 Results Laboratory Results: 07/15/18 05:59 07/15/18 05:59 07/11/18 07/12/18 07/12/18 18:57 00:55 07:17 Troponin I 0.370 0.338 0.221 NT-Pro-B Natriuret Pep 9090 H 07/13/18 07/14/18 07/15/18 06:02 08:32 05:59 Troponin I NT-Pro-B Natriuret Pep 6010 H 4300 H 2870 H Impressions: Chest X-Ray 07/11/18 08:59 IMPRESSION: Cardiomegaly and vascular congestion. Provider Note Provider Note: I have discussed this patient with KAT Landis in detail. I am in agreement with her evaluation and plan.
[2018-07-15] MEDS: IPRATROPIUM/ALBUTEROL 0.5-2.5 MG/3 ML AMPUL NEB SCH ×4 (00:05→12:50)
[2018-07-15] MEDS: METHYLPREDNISOLONE INJ 125 MG/2 ML SDV IV SCH ×2 (06:36→11:38)
[2018-07-15] MEDS: LANSOPRAZOLE 30 MG TAB.RAP.DR PO SCH (06:36)
[2018-07-15 06:54] LABS: HEMATOCRIT 28.7 % (36.0-47.0); HEMOGLOBIN 9.7 g/dL (12.0-15.5); MEAN CORPUSCULAR HEMOGLOBIN 29.3 pg (27.0-33.4); MEAN CORPUSCULAR VOLUME 86 fl (80-97); PLATELET COUNT 218 10^3/uL (150-450); RED BLOOD COUNT 3.33 10^6/uL (3.72-5.28); WHITE BLOOD COUNT 15.7 10^3/uL (4.0-10.5)
[2018-07-15 07:47] LABS: ANION GAP 14 (5-19); BLOOD UREA NITROGEN 82 mg/dL (7-20); CALCIUM 8.7 mg/dL (8.4-10.2); CARBON DIOXIDE 22 mmol/L (22-30); CHLORIDE 100 mmol/L (98-107); GLUCOSE 125 mg/dL (75-110); PHOSPHORUS 4.1 mg/dL (2.5-4.5); POTASSIUM 4.1 mmol/L (3.6-5.0)
[2018-07-15] MEDS ORDERED: FUROSEMIDE 40 MG TABLET PO SCH (10:00)
[2018-07-15] MEDS: ASPIRIN 81 MG TABLET, ENT COATED PO SCH (10:04)
[2018-07-15] MEDS: HYDRALAZINE HCL 50 MG TABLET PO SCH (10:04)
[2018-07-15] MEDS: FERROUS SULFATE 325 MG TABLET PO SCH (10:04)
[2018-07-15] MEDS: ENOXAPARIN SODIUM INJ 30 MG/0.3 ML DISP.SYRIN SUBCUT SCH (10:05)
[2018-07-15] MEDS: LEVOFLOXACIN 750 MG TABLET PO SCH (10:05)
[2018-07-15] MEDS: GABAPENTIN 400 MG CAPSULE PO SCH (10:05)
[2018-07-15] MEDS: AMLODIPINE BESYLATE 10 MG TABLET PO SCH (10:05)
[2018-07-15] MEDS: LISINOPRIL 10 MG TABLET PO SCH (10:06)
[2018-07-15] MEDS: METOPROLOL SUCCINATE 25 MG TAB.SR.24H PO SCH (10:06)
[2018-07-15] MEDS: TIOTROPIUM BROMIDE DPI 5 CAP/KIT (18 MCG/CAP) IH SCH (10:06)
[2018-07-15] MEDS: SALMETEROL XINAFOATE DISKUS 50 MCG/1 DOSE 28 DOSE IH SCH (10:06)
[2018-07-15 14:31] VITALS: BP 184/98
--- NOTE | 2018-07-27 08:49 | PDOC DISCHARGE SUMMARY ---
<BENNIE BOURNE - Last Filed: 07/27/18 08:45> General - Admit/Disc Date/PCP Admission Date/Primary Care Provider: 07/11/18 14:57 WENCESLAO PEGUERO DO Discharge Date: 07/15/18 - Discharge Diagnosis (1) Acute and chronic respiratory failure Is this a current diagnosis for this admission?: Yes (2) COPD exacerbation Is this a current diagnosis for this admission?: Yes (3) CHF (congestive heart failure) Is this a current diagnosis for this admission?: Yes (4) Hypertension Is this a current diagnosis for this admission?: Yes (5) Tobacco abuse Is this a current diagnosis for this admission?: Yes (6) Full code status Is this a current diagnosis for this admission?: Yes - Additional Information Resuscitation Status: Full Code Discharge Diet: Cardiac Discharge Activity: Activity As Tolerated, Weigh Daily Prescriptions: Metoprolol Succinate [Toprol Xl 25 mg Tab.sr] 25 mg PO Q12 #60 tab.sr.24h Home Medications: Albuterol Sulfate [Proair HFA Inhalation Aerosol 8.5 gm MDI] 2 puff IH DAILY 06/06 Amlodipine Besylate [Norvasc 10 mg Tablet] 10 mg PO DAILY 05/26/18 Aspirin [Aspirin EC] 81 mg PO DAILY 05/26/18 Budesonide/Formoterol Fumarate [Symbicort 160-4.5 Mcg Inhaler] 2 puff IH Q12 06/06 Cyanocobalamin (Vitamin B-12) [Vitamin B-12 100 mcg Tablet] 100 mcg PO DAILY 06/06 Ferrous Sulfate [Feosol 325 mg Tablet] 325 mg PO DAILY 05/26/18 Gabapentin [Neurontin 400 mg Capsule] 400 mg PO Q12 05/26/18 Hydralazine HCl [Apresoline 50 mg Tablet] 100 mg PO Q12 05/26/18 Lisinopril [Prinivil 5 mg Tablet] 5 mg PO DAILY 05/26/18 Tiotropium [place] [Spiriva Handihaler 5 Cap/Kit (18 Mcg/Cap)] 1 cap IH DAILY Tramadol HCl [Ultram 50 mg Tablet] 50 mg PO Q12HP PRN 05/26/18 Albuterol Sulfate [Ventolin 0.083% Neb 2.5 mg/3 mL Ampul] 2.5 mg NEB RTQ2HP PRN #60 vial.neb 06/22/18 Metoprolol Succinate [Toprol Xl 25 mg Tab.sr] 25 mg PO Q12 #60 tab.sr.24h Fluticasone Propionate [Flonase Nasal [place] 50 Mcg/[place] 16 gm] 1 spray NAREB DAILY 07/26/18 Furosemide [Lasix 40 mg Tablet] 80 mg PO DAILY 07/26/18 History of Present Illness History of Present Illness: BOOM TODD is a 62 year old female who presented to the emergency department with shortness of breath. This patient is very well-known to the hospitalist service, she has a PMH of CHF, COPD, HTN and is frequently admitted for CHF and/or COPD exacerbations. The patient reports she began experiencing symptoms of SOB roughly 16 hours prior to arrival. She endorses wheezing, dry cough, mild chest tightness, all exacerbated by physical exertion. The patient states she used 2 nebulizer treatments at home (6 hours apart) in order to help her symptoms, but the treatments offered no relief. This morning, when the patient woke up she reports that she was incredibly dyspneic, which prompted her son to call EMS. In route to [facility], EMS administered 125 mg Solu-Medrol IV and an albuterol/event nebulizer treatment. Initial vital signs upon arrival were BP 158/83 HR 99 RR 27 T 98.9 SPO2 90% on 2LNC. EKG demonstrates sinus tachycardia, no evidence of acute ischemia or infarct. CXR shows cardiomegaly and vascular congestion. Significant lab work includes leukocytosis (WBC 14), proBNP 1030, and Troponin 0.199. All other lab work is relatively benign. In the ED, the patient received 80mg Lasix IV for diuresis, back to back Duoneb treatments for her respiratory distress, and an initial dose of Levaquin IV. Upon assessment, the patient is resting comfortably in bed on supplemental oxygen via nasal cannula. She is alert and oriented 3, she is able to answer all questions without pause. Wheezing is auscultated in all lung tan, rhonchi in bilateral bases. No evidence of central or peripheral cyanosis. Respirations are equal and unlabored. S1-S2. No peripheral edema. Palpable pulses in all 4 extremities. No JVD. The patient endorses moderate shortness of breath but states she feels 'much better ' following her treatments. In addition to her shortness of breath, the patient endorses a mild temporal headache. The patient states that she is compliant with all of her home medications. She denies recent ill contacts or travel. Plan to admit to hospitalist service for COPD and CHF exacerbation. Hospital Course Hospital Course: 62 y.o. F with a PMH of CHF, COPD (on 2L home O2) and HTN admitted for acute respiratory failure secondary to a COPD and CHF exacerbation. CXR demonstrated bilateral pulmonary edema. Wheezing was auscultated in all lung tan R>L. nitially treated with 80mg IV lasix and nebulizers in the ED. ProBNP was initially 9000, decreased to 4300 with daily diuresis. For her COPD exacerbation , the patient was treated with IV steroids, scheduled and PRN nebulizers, and empiric antibiotic coverage with Levaquin in the setting of severe COPD exacerbation. Unfortunately, the patient's blood pressure was poorly controlled while she was inpatient despite being on her home dose of antihypertensives. The patient's daily dose of lisinopril was increased. Additionally, she was switched from Coreg to Toprol XL, a better choice of beta blockade in a patient with chronic lung disease. After 4 days in the hospital, the patient was deemed safe for discharge. Her blood pressure was adequately controlled and her respiratory symptoms had resolved. She was sent home with her prescriptions for antibiotics to complete her treatment regimen for the COPD exacerbation, a 5 day steroid taper, as well as a prescription for her new antihypertensive. The patient was instructed to follow up with her primary care provider in 1-2 weeks , she stated full understanding. For further information regarding this patient's hospitalization, please refer to EMR. Physical Exam Vital Signs: Temp Pulse Resp BP Pulse Ox 97.5 F 78 18 184/98 H 97 07/15/18 14:30 07/15/18 14:30 07/15/18 14:30 07/15/18 14:30 07/15/18 14:30 Results Laboratory Results: 07/15/18 05:59 07/15/18 05:59 07/11/18 07/12/18 07/12/18 18:57 00:55 07:17 Troponin I 0.370 0.338 0.221 NT-Pro-B Natriuret Pep 9090 H 07/13/18 07/14/18 07/15/18 06:02 08:32 05:59 Troponin I NT-Pro-B Natriuret Pep 6010 H 4300 H 2870 H Impressions: Chest X-Ray 07/11/18 08:59 IMPRESSION: Cardiomegaly and vascular congestion. Status: Imported from PACS Qualifiers - * PATIENT BEING DISCHARGED WITH ANY OF THE FOLLOWING DIAGNOSIS: No <SWAYZE,RUFINO M - Last Filed: 07/30/18 05:41> General - Admit/Disc Date/PCP Admission Date/Primary Care Provider: 07/11/18 14:57 WENCESLAO PEGUERO DO History of Present Illness History of Present Illness: BOOM TODD is a 62 year old female Physical Exam Vital Signs: Temp Pulse Resp BP Pulse Ox 97.5 F 78 18 184/98 H 97 07/15/18 14:30 07/15/18 14:30 07/15/18 14:30 07/15/18 14:30 07/15/18 14:30 Results Laboratory Results: 07/15/18 05:59 07/15/18 05:59 07/11/18 07/12/18 07/12/18 18:57 00:55 07:17 Troponin I 0.370 0.338 0.221 NT-Pro-B Natriuret Pep 9090 H 07/13/18 07/14/18 07/15/18 06:02 08:32 05:59 Troponin I NT-Pro-B Natriuret Pep 6010 H 4300 H 2870 H Impressions: Chest X-Ray 07/11/18 08:59 IMPRESSION: Cardiomegaly and vascular congestion. Provider Note Provider Note: I have discussed this patient with KAT Bourne in detail. I am in agreement with her evaluation and plan.
== END 2018-07-15 14:30 | disposition home or self-care (01) | DRG 190 ==
LOC: ER 08:42 → EH 14:57 → 4S 19:40
PROVIDERS: ADMIT Internal Medicine; ATTEND Internal Medicine
DX: J44.1 Chronic obstructive pulmonary disease with (acute) exacerbation (principal); J96.20 Acute and chronic respiratory failure, unspecified whether with hypoxia or hypercapnia; I25.10 Atherosclerotic heart disease of native coronary artery without angina pectoris; I50.9 Heart failure, unspecified; I11.0 Hypertensive heart disease with heart failure; E78.5 Hyperlipidemia, unspecified; F17.210 Nicotine dependence, cigarettes, uncomplicated; E66.01 Morbid (severe) obesity due to excess calories; M10.9 Gout, unspecified; Z82.3 Family history of stroke; Z98.51 Tubal ligation status; Z79.82 Long term (current) use of aspirin; Z79.899 Other long term (current) drug therapy; Z68.31 Body mass index [BMI] 31.0-31.9, adult; Z79.51 Long term (current) use of inhaled steroids; D72.829 Elevated white blood cell count, unspecified; T38.0X5A Adverse effect of glucocorticoids and synthetic analogues, initial encounter; Z82.49 Family history of ischemic heart disease and other diseases of the circulatory system; Z99.81 Dependence on supplemental oxygen
CPT/HCPCS: 36415; 71045; 80048; 80053; 80061; 81001; 82550; 82553; 83036; 83605; 83735; 83880; 84100; 84443; 84484; 85025; 85027; 87040; 93005; 93010; 94640; 96365; 96366; 96375; 99285; J0360; J1650; J1940; J1956; J2930; J3475; J3490; J7620

== ENCOUNTER 2018-07-25 17:22 | Inpatient (IN) | payer OTHER, MEDICARE, MEDICAID ==
[2018-07-25] MEDS ORDERED: ALBUTEROL SULFATE 0.083% NEB 2.5 MG/3 ML AMPUL NEB ONE ×2 (17:37→21:15)
[2018-07-25] MEDS ORDERED: IPRATROPIUM BROMIDE 0.02% NEB 0.5 MG/2.5 ML AMPUL NEB ONE (17:37)
--- NOTE | 2018-07-25 18:06 | ER Document Report ---
ED General - General Chief Complaint: Shortness Of Breath Stated Complaint: DIFFICULTY BREATHING Time Seen by Provider: 07/25/18 17:32 TRAVEL OUTSIDE OF THE [place] IN LAST 30 DAYS: No - HPI Notes: 62-year-old female with history of COPD presents with increased shortness of breath today. She was most recently admitted to the hospital July 11 for 4 days for COPD exacerbation. She reports having multiple doctor's appointments today so missed 1 of her breathing treatments. She has had slight increased cough. Denies chest pain or fever. She was given DuoNeb and soluMedrol by EMS with minimal improvement. She states she is not currently taking antibiotics or prednisone. - Related Data Allergies/Adverse Reactions: No Known Allergies Allergy (Verified 12/15/17 07:04) Past Medical History - Social History Smoking Status: Current Every Day Smoker Chew tobacco use (# tins/day): No Frequency of alcohol use: None Drug Abuse: None Family History: CVA, Hypertension, Other - diabetes Patient has suicidal ideation: No Patient has homicidal ideation: No - Past Medical History Cardiac Medical History: Reports: Hx Congestive Heart Failure, Hx Coronary Artery Disease, Hx Hypercholesterolemia, Hx Hypertension, Hx Heart Murmur Pulmonary Medical History: Reports: Hx Asthma, Hx Bronchitis, Hx COPD, Hx Pneumonia Denies: Hx Tuberculosis Renal/ Medical History: Denies: Hx Peritoneal Dialysis GI Medical History: Denies: Hx Cirrhosis, Hx Crohn's Disease, Hx Diverticulitis , Hx Gastroesophageal Reflux Disease, Hx Hepatitis, Hx Hiatal Hernia Musculoskeletal Medical History: Denies Hx Arthritis, Denies Hx Fibromyalgia, Reports Hx Gout Skin Medical History: Denies Hx Eczema, Denies Hx Psoriasis Psychiatric Medical History: Reports: Hx Depression Traumatic Medical History: Denies: Hx Gunshot Wound, Hx Pneumothorax, Hx Traumatic Brain Injury Infectious Medical History: Denies: Hx Hepatitis Past Surgical History: Reports: Hx Section - x 4, Hx Tubal Ligation - Immunizations Hx Diphtheria, Pertussis, Tetanus Vaccination: Yes Hx Pneumococcal Vaccination: 05/06/12 Review of Systems - Review of Systems Notes: Constitutional: Negative for fever. HENT: Negative for sore throat. Eyes: Negative for visual changes. Cardiovascular: Negative for chest pain. Respiratory: Positive for wheezing, shortness of breath, cough. Gastrointestinal: Negative for abdominal pain, vomiting or diarrhea. Genitourinary: Negative for dysuria. Musculoskeletal: Negative for back pain. Skin: Negative for rash. Neurological: Negative for headaches, weakness or numbness. 10 point ROS negative except as marked above and in HPI. Physical Exam - Vital signs Vitals: Temp 98.5 F 07/25/18 17:28 - Notes Notes: PHYSICAL EXAMINATION: GENERAL: Well-appearing, well-nourished and in no acute distress. HEAD: Atraumatic, normocephalic. EYES: Pupils equal round and reactive to light, extraocular movements intact, conjunctiva are normal. ENT: nares patent, oropharynx clear without exudates. Moist mucous membranes. NECK: Normal range of motion, supple without lymphadenopathy LUNGS: Tachypnea. Diffuse wheezing and rhonchi. HEART: Regular rate and rhythm, no chest wall tenderness ABDOMEN: Soft, nontender, normoactive bowel sounds. No guarding, no rebound. No masses appreciated. EXTREMITIES: Normal range of motion, no pitting or edema. No cyanosis. NEUROLOGICAL: Cranial nerves grossly intact. Normal speech, normal gait. Normal sensory and motor exams. PSYCH: Normal mood, normal affect. SKIN: Warm, Dry, normal turgor, no rashes or lesions noted. Course - Re-evaluation Re-evalutation: 07/25/18 19:51 Patient reported improvement after hour-long neb. She then ambulated to bathroom and had increasing tachypnea and dyspnea. Will give second hour long neb and check a chest x-ray. admitted 07/11 for both COPD and CHF. Chest x- ray showed persistent pulmonary edema on discharge chest x-ray. 07/25/18 21:15 Patient still wheezing. She is satting 97% on her normal 2 L. Patient states that she feels she is too dyspneic to go home. Discussed with hospitalist for admission. She requested a CBC and a BMP. Chest x-ray unchanged from previous. - Vital Signs Vital signs: Temp Pulse Resp BP Pulse Ox 98.5 F 25 H 159/98 H 97 07/25/18 17:28 07/25/18 18:01 07/25/18 18:01 07/25/18 18:01 Discharge - Discharge Clinical Impression: COPD exacerbation Condition: Fair Disposition: ADMITTED INPATIENT Admitting Provider: Hospitalist Unit Admitted: Telemetry Referrals: WENCESLAO PEGUERO DO [Primary Care Provider] - Follow up as needed
--- NOTE | 2018-07-25 20:31 | RADIOLOGY REPORT (SQ) ---
EXAM DESCRIPTION: CHEST 2 VIEWS COMPLETED DATE/TIME: 07/25/2018 8:14 pm REASON FOR STUDY: SOB COMPARISON: 06/18/2018 EXAM PARAMETERS: NUMBER OF VIEWS: two views TECHNIQUE: Digital Frontal and Lateral radiographic views of the chest acquired. RADIATION DOSE: NA LIMITATIONS: none FINDINGS: LUNGS AND PLEURA: Mild chronic interstitial changes no infiltrate or effusion. No mass. MEDIASTINUM AND HILAR STRUCTURES: No masses or contour abnormalities. HEART AND VASCULAR STRUCTURES: Heart size is borderline. There is no pulmonary edema. BONES: No acute findings. HARDWARE: None in the chest. OTHER: No other significant finding. IMPRESSION: Chronic lung changes. Borderline cardiomegaly without vinod pulmonary edema. TECHNICAL DOCUMENTATION: JOB ID: [id number] [employer]- All Rights Reserved Reading location - IP/workstation name: [email or web address]
[2018-07-25] MEDS ORDERED: MAG HYDROX/AL HYDROX/SIMETH SUSP 30 ML UDCUP PO PRN (21:41)
[2018-07-25] MEDS ORDERED: ACETAMINOPHEN 325 MG TABLET PO PRN (21:41)
[2018-07-25] MEDS ORDERED: PROMETHAZINE HCL 25 MG TABLET PO PRN (21:41)
[2018-07-25] MEDS ORDERED: PROMETHAZINE HCL INJ 25 MG/1 ML VIAL IV PRN (21:41)
--- NOTE | 2018-07-25 22:12 | PDOC H&P ---
History of Present Illness Admission Date/PCP: 07/25/18 21:25 WENCESLAO PEGUERO DO Patient complains of: Shortness of breath History of Present Illness: BOOM TODD is a 62 year old female with chronic respiratory failure secondary to COPD on 2 L oxygen at home, unfortunately still a smoker. Patient was discharged from our facility on 07/14 with a diagnosis of COPD and CHF exacerbation. Since then tells me that she was doing well until today that she had an appointment with her dentist, she is supposed to have her nebulizer treatments every 4 hours but she had half treatment when she woke up and half treatment during the day on top of that she smoked 1 cigarette. Around 5 PM started feeling progressive shortness of breath associated to worsening wheezing , cough, denies any sputum, fever, chills, chest pain, dizziness, lightheadedness, nausea, vomiting, changes in her bowel movements or changes in her urine. Patient had a 5 nebulizer treatments in the ED unsuccessfully, is still short of breath and wheezing. No laboratory has been done. Not on antibiotics or prednisone. Chest x-ray showed persistent pulmonary edema. Currently saturating 97% on 2 L nasal cannula. Past Medical History Cardiac Medical History: Reports: Congestive Heart Failure, Coronary Artery Disease, Hyperlipidema, Hypertension, Heart Murmur Pulmonary Medical History: Reports: Asthma, Bronchitis, Chronic Obstructive Pulmonary Disease (COPD), Pneumonia Denies: Tuberculosis GI Medical History: Denies: Cirrhosis, Crohn's Disease, Diverticulitis, Gastroesophageal Reflux Disease, Hepatitis, Hiatal Hernia Musculoskeltal Medical History: Reports: Gout Denies: Arthritis, Fibromyalgia Skin Medical History: Denies: Eczema, Psoriasis Psychiatric Medical History: Reports: Depression Traumatic Medical History: Denies: Gunshot Wound, Pneumothorax, Traumatic Brain Injury Hematology: Denies: Hemophilia, Sickle Cell Disease, Bleeding Tendencies Past Surgical History Past Surgical History: Reports: Section - x 4, Tubal Ligation Social History Smoking Status: Current Every Day Smoker Cigars Per Day: 2 - varies Frequency of Alcohol Use: Rare Hx Recreational Drug Use: No Drugs: None Hx Prescription Drug Abuse: No Family History Family History: CVA, Hypertension, Other - diabetes Parental Family History Reviewed: Yes Children Family History Reviewed: Unknown Sibling(s) Family History Reviewed.: Unknown Medication/Allergy Home Medications: Albuterol Sulfate [Proair HFA Inhalation Aerosol 8.5 gm MDI] 2 puff IH DAILY 06/06 Amlodipine Besylate [Norvasc 10 mg Tablet] 10 mg PO DAILY 05/26/18 Aspirin [Aspirin EC] 81 mg PO DAILY 05/26/18 Budesonide/Formoterol Fumarate [Symbicort 160-4.5 Mcg Inhaler] 2 puff IH Q12 06/06 Cyanocobalamin (Vitamin B-12) [Vitamin B-12 100 mcg Tablet] 100 mcg PO DAILY 06/06 Ferrous Sulfate [Feosol 325 mg Tablet] 325 mg PO DAILY 05/26/18 Gabapentin [Neurontin 400 mg Capsule] 400 mg PO Q12 05/26/18 Hydralazine HCl [Apresoline 50 mg Tablet] 100 mg PO Q12 05/26/18 Lisinopril [Prinivil 5 mg Tablet] 5 mg PO DAILY 05/26/18 Tiotropium [place] [Spiriva Handihaler 5 Cap/Kit (18 Mcg/Cap)] 1 cap IH DAILY Tramadol HCl [Ultram 50 mg Tablet] 50 mg PO Q12HP PRN 05/26/18 Albuterol Sulfate [Ventolin 0.083% Neb 2.5 mg/3 mL Ampul] 2.5 mg NEB RTQ2HP PRN #60 vial.neb 06/22/18 Ipratropium/Albuterol Sulfate [Duoneb 3 ml Ampul] 3 ml NEB [id number] #60 vial.neb 06/22/18 Furosemide [Lasix 40 mg Tablet] 60 mg PO DAILY #30 tablet 07/15/18 Levofloxacin [Levaquin 750 mg Tablet] 750 mg PO DAILY #1 tablet 07/15/18 Metoprolol Succinate [Toprol Xl 25 mg Tab.sr] 25 mg PO Q12 #60 tab.sr.24h Prednisone 20 mg PO DAILY #19 tablet 07/15/18 Allergies/Adverse Reactions: No Known Allergies Allergy (Verified 12/15/17 07:04) Review of Systems Review of Systems: As outlined in the HPI, all others negative Physical Exam Vital Signs: Temp Pulse Resp BP Pulse Ox 98.5 F 25 H 159/98 H 97 07/25/18 17:28 07/25/18 18:01 07/25/18 18:01 07/25/18 18:01 Additional comments: General appearance: Well-developed, well-nourished, alert and cooperative, and appears to be in mild distress seconday to dyspnea Head: Normocephalic Eyes: PEERL, EOMI, vision is grossly intact. Ears: External auditory canal and tympanic membranes clear, hearing grossly intact. Nose: No nasal discharge. Throat: Oral cavity and pharynx normal. No inflammation, swelling, exudate or lesions. Neck: Neck supple, nontender without lymphadenopathy, masses or thyromegaly. Cardiac: Normal S1 and S2. No S3, S4 or murmurs. Rhythm is regular. There is no peripheral edema, cyanosis or pallor. Extremities are warm and well perfused. Capillary refill is less than 2 seconds. No carotid bruits. Lungs: Bilateral decreased air entry with moderate rales, mild rhonchi, moderate to severe wheezing. Not using accessory muscles. Abdomen: Positive bowel sounds. Soft. Nondistended, nontender. No guarding or rebound. No masses. No hepatosplenomegaly Extremities: No significant deformity or joint abnormality. No edema. Peripheral pulses intact. No varicosities. Neurological: Cranial nerves II through XII grossly intact. Strength and sensation symmetric and intact throughout. Reflexes 2+ throughout. Skin: Skin normal color, texture and turgor with no lesions or eruptions, warm and dry. Psychiatric: The mental examination revealed the patient was oriented to person , place, and time. The patient was able to demonstrate good judgment on recent , without hallucinations, abnormal affect or abnormal behaviors. Results Laboratory Results: No Labs Impressions: Chest X-Ray 07/25/18 19:50 IMPRESSION: Chronic lung changes. Borderline cardiomegaly without vinod pulmonary edema. Assessment & Plan - Diagnosis (1) Acute exacerbation of chronic obstructive pulmonary disease (COPD) Is this a current diagnosis for this admission?: Yes Plan: Patient comes with acute onset of dyspnea, likely trigger by her smoking habit. In the ED patient has had 5 nebulizer treatments partially improved her shortness of breath. Has not been documented hypoxia and is saturating 97% on 2 L via nasal cannula. Will admit the patient was started on IV azithromycin, Solu-Medrol 60 mg every 8 hours, nebulizer treatment with DuoNeb every 3 hours as needed. Incentive spirometry. BiPAP as needed. ABG pending (2) Chronic respiratory failure Is this a current diagnosis for this admission?: Yes Plan: Chronic hypoxic Respiratory failure secondary to COPD on 2 L of oxygen at home. (3) Chronic diastolic heart failure Is this a current diagnosis for this admission?: Yes Plan: Seems to be compensated, continue with home Lasix. I ordered BNP (4) Hypertension Qualifiers: Hypertension type: essential hypertension Qualified Code(s): I10 - Essential (primary) hypertension Is this a current diagnosis for this admission?: Yes Plan: Continue with home antihypertensive medications as amlodipine, lisinopril, metoprolol. (5) Coronary artery disease Qualifiers: Coronary Disease-Associated Artery/Lesion type: [place] artery Is this a current diagnosis for this admission?: Yes Plan: Denies any cardiac symptomatology, continue with aspirin (6) Tobacco abuse Is this a current diagnosis for this admission?: Yes Plan: Fortunately still a smoker, tells me that yesterday during the smoking history is very bad today as she was with a lot going around she smoked 1 cigarette, she tells me that she is trying to quit smoking but is very hard for her. - Time Time Spent: 30 to 50 Minutes - Inpatient Certification Based on my medical assessment, after consideration of the patient's comorbidities, presenting symptoms, or acuity I expect that the services needed warrant INPATIENT care.: Yes I certify that my determination is in accordance with my understanding of Medicare's requirements for reasonable and necessary INPATIENT services [42 CFR 412.3e].: Yes Medical Necessity: Risk of Complication if Not Cared For in Hospital
[2018-07-25 22:13] LABS: ARTERIAL BLOOD BASE EXCESS 2.1 mmol/L; ARTERIAL BLOOD FIO2 2L; ARTERIAL BLOOD H2CO3 1.43 mmol/L (1.05-1.35); ARTERIAL BLOOD HCO3 27.7 mmol/L (20-24); ARTERIAL BLOOD O2 SATURATION 92.8 % (94-98); ARTERIAL BLOOD PCO2 47.5 mmHg (35-45); ARTERIAL BLOOD PH 7.38 (7.35-7.45); ARTERIAL BLOOD PO2 66.6 mmHg (80-100); ARTERIAL BLOOD TOTAL CO2 29.1 mmol/L (21-25)
[2018-07-25] MEDS: METHYLPREDNISOLONE INJ 125 MG/2 ML SDV IV SCH (22:20)
[2018-07-25] MEDS: AZITHROMYCIN 500 MG in DEXTROSE 5%-WATER 250 ML IV SCH (22:20)
[2018-07-25 22:23] LABS: HEMOGLOBIN 9.5 g/dL (12.0-15.5); MEAN CORPUSCULAR HEMOGLOBIN 28.8 pg (27.0-33.4); MEAN CORPUSCULAR HGB CONC 32.6 g/dL (32.0-36.0); MEAN CORPUSCULAR VOLUME 88 fl (80-97); PLATELET COUNT 295 10^3/uL (150-450); RED BLOOD COUNT 3.29 10^6/uL (3.72-5.28); RED CELL DISTRIBUTION WIDTH 13.7 % (11.5-14.0); WHITE BLOOD COUNT 18.1 10^3/uL (4.0-10.5)
[2018-07-25 22:24] LABS: ANION GAP 10 (5-19); BLOOD UREA NITROGEN 41 mg/dL (7-20); CALCIUM 9.4 mg/dL (8.4-10.2); CARBON DIOXIDE 26 mmol/L (22-30); CHLORIDE 111 mmol/L (98-107); GLUCOSE 124 mg/dL (75-110); POTASSIUM 3.5 mmol/L (3.6-5.0)
[2018-07-25 22:43] LABS: ABSOLUTE LYMPHOCYTES# (MANUAL) 0.9 10^3/uL (0.5-4.7); ABSOLUTE MONOCYTES # (MANUAL) 0.2 10^3/uL (0.1-1.4); BASOPHILS % (MANUAL) 0 % (0-2); EOSINOPHILS % (MANUAL) 0 % (0-6); LYMPHOCYTES % (MANUAL) 5 % (13-45); MONOCYTES % (MANUAL) 1 % (3-13); SEGMENTED NEUTROPHILS % (MAN) 94 % (42-78); TOTAL CELLS COUNTED 100; TOXIC GRANULATION SLIGHT
[2018-07-25 22:44] LABS: PLATELET COMMENT ADEQUATE
[2018-07-26] MEDS: METHYLPREDNISOLONE INJ 125 MG/2 ML SDV IV SCH ×3 (09:12→21:48)
[2018-07-26] MEDS ORDERED: ENOXAPARIN SODIUM INJ 40 MG/0.4 ML DISP.SYRIN SUBCUT SCH (10:00)
[2018-07-26] MEDS: IPRATROPIUM/ALBUTEROL 0.5-2.5 MG/3 ML AMPUL NEB PRN (12:58)
[2018-07-26] MEDS ORDERED: AMLODIPINE BESYLATE 10 MG TABLET ONE (14:15)
[2018-07-26] MEDS: AMLODIPINE BESYLATE 5 MG TABLET PO SCH (14:21)
[2018-07-26] MEDS: HYDRALAZINE HCL 50 MG TABLET PO SCH ×2 (16:07→21:49)
[2018-07-26 17:35] LABS: ANION GAP 13 (5-19); BLOOD UREA NITROGEN 49 mg/dL (7-20); CALCIUM 8.9 mg/dL (8.4-10.2); CARBON DIOXIDE 27 mmol/L (22-30); CHLORIDE 104 mmol/L (98-107); GLUCOSE 118 mg/dL (75-110); POTASSIUM 3.6 mmol/L (3.6-5.0); SODIUM 143.7 mmol/L (137-145)
--- NOTE | 2018-07-26 17:58 | PDOC PROGRESS REPORT ---
Subjective Progress Note for:: 07/26/18 Subjective:: No acute events overnight. Patient states that she is feeling much better than yesterday. Denies any fever chills nausea vomiting abdominal pain or any shortness of breath. Reason For Visit: COPD EXACERBATION Physical Exam Vital Signs: Temp Pulse Resp BP Pulse Ox 98.3 F 98 18 186/82 H 99 07/26/18 15:09 07/26/18 15:09 07/26/18 15:09 07/26/18 15:09 07/26/18 15:09 Intake & Output 07/25/18 07/26/18 07/27/18 06:59 06:59 06:59 Intake Total 250 903 Balance 250 903 Weight 110.6 kg General appearance: PRESENT: no acute distress, well-developed, well-nourished Head exam: PRESENT: atraumatic, normocephalic Eye exam: PRESENT: conjunctiva pink, EOMI, PERRLA. ABSENT: scleral icterus Ear exam: PRESENT: normal external ear exam Mouth exam: PRESENT: moist, tongue midline Neck exam: ABSENT: carotid bruit, JVD, lymphadenopathy, thyromegaly Respiratory exam: PRESENT: clear to auscultation brandon, decreased breath sounds, prolonged expiratory phas. ABSENT: rales, rhonchi, wheezes Cardiovascular exam: PRESENT: RRR. ABSENT: diastolic murmur, rubs, systolic murmur Pulses: PRESENT: normal dorsalis pedis pul Vascular exam: PRESENT: normal capillary refill GI/Abdominal exam: PRESENT: normal bowel sounds, soft. ABSENT: distended, guarding, mass, organolmegaly, rebound, tenderness Rectal exam: PRESENT: deferred Extremities exam: PRESENT: full ROM. ABSENT: calf tenderness, clubbing, pedal edema Neurological exam: PRESENT: alert, awake, oriented to person, oriented to place , oriented to time, oriented to situation, CN II-XII grossly intact. ABSENT: motor sensory deficit Psychiatric exam: PRESENT: appropriate affect, normal mood. ABSENT: homicidal ideation, suicidal ideation Skin exam: PRESENT: dry, intact, warm. ABSENT: cyanosis, rash Results Laboratory Results: 07/25/18 21:50 07/26/18 17:12 07/25/18 07/25/18 07/25/18 21:50 21:50 21:50 WBC 18.1 H RBC 3.29 L Hgb 9.5 L Hct 29.0 L MCV 88 MCH 28.8 MCHC 32.6 RDW 13.7 Plt Count 295 Seg Neutrophils % Not Reportable Lymphocytes % Not Reportable Monocytes % Not Reportable Eosinophils % Not Reportable Basophils % Not Reportable Absolute Neutrophils Not Reportable Absolute Lymphocytes Not Reportable Absolute Monocytes Not Reportable Absolute Eosinophils Not Reportable Absolute Basophils Not Reportable Carbonic Acid 1.43 H HCO3/H2CO3 Ratio 19:1 ABG pH 7.38 ABG pCO2 47.5 H ABG pO2 66.6 L ABG HCO3 27.7 H ABG O2 Saturation 92.8 L ABG Base Excess 2.1 FiO2 2L Sodium 147.0 H Potassium 3.5 L Chloride 111 H Carbon Dioxide 26 Anion Gap 10 BUN 41 H Creatinine 3.13 H Est GFR ( Amer) 18 L Est GFR (Non-Af Amer) 15 L Glucose 124 H Calcium 9.4 07/26/18 17:12 WBC RBC Hgb Hct MCV MCH MCHC RDW Plt Count Seg Neutrophils % Lymphocytes % Monocytes % Eosinophils % Basophils % Absolute Neutrophils Absolute Lymphocytes Absolute Monocytes Absolute Eosinophils Absolute Basophils Carbonic Acid HCO3/H2CO3 Ratio ABG pH ABG pCO2 ABG pO2 ABG HCO3 ABG O2 Saturation ABG Base Excess FiO2 Sodium 143.7 Potassium 3.6 Chloride 104 Carbon Dioxide 27 Anion Gap 13 BUN 49 H Creatinine 2.80 H Est GFR ( Amer) 21 L Est GFR (Non-Af Amer) 17 L Glucose 118 H Calcium 8.9 07/25/18 21:50 NT-Pro-B Natriuret Pep 3360 H Impressions: Chest X-Ray 07/25/18 19:50 IMPRESSION: Chronic lung changes. Borderline cardiomegaly without vinod pulmonary edema. Assessment & Plan - Diagnosis (1) Acute exacerbation of chronic obstructive pulmonary disease (COPD) Is this a current diagnosis for this admission?: Yes Plan: Improving. Continue IV azithromycin, Solu-Medrol 60 mg every 8 hours, nebulizer treatment with DuoNeb every 3 hours as needed. Incentive spirometry. BiPAP as needed. Repeat ABG tomorrow. (2) Chronic respiratory failure Is this a current diagnosis for this admission?: Yes Plan: Chronic hypoxic Respiratory failure secondary to COPD on 2 L of oxygen at home. Continue nebs, BiPAP. (3) CKD (chronic kidney disease), stage IV Is this a current diagnosis for this admission?: Yes Plan: Most likely due to uncontrolled hypertension and diabetes. Patient still making urine. Monitor electrolytes and volume status. Outpatient nephrology follow-up (4) Chronic diastolic heart failure Is this a current diagnosis for this admission?: Yes Plan: As her volume status. Continue Lasix, CEM and beta-avila. (5) Hypertension Qualifiers: Hypertension type: essential hypertension Qualified Code(s): I10 - Essential (primary) hypertension Is this a current diagnosis for this admission?: Yes Plan: Restart home medication of hydralazine, beta-avila, CEM, amlodipine. (6) Tobacco abuse Is this a current diagnosis for this admission?: Yes Plan: Otherwise people in quitting. Written patch while in the hospital.
[2018-07-26] MEDS: GABAPENTIN 400 MG CAPSULE PO SCH (21:49)
[2018-07-26] MEDS: METOPROLOL TARTRATE 25 MG TABLET PO SCH (21:49)
[2018-07-26] MEDS: AZITHROMYCIN 500 MG in DEXTROSE 5%-WATER 250 ML IV SCH (21:50)
[2018-07-27] MEDS: METHYLPREDNISOLONE INJ 125 MG/2 ML SDV IV SCH ×3 (05:58→21:36)
[2018-07-27] MEDS: IPRATROPIUM/ALBUTEROL 0.5-2.5 MG/3 ML AMPUL NEB PRN ×2 (09:37→15:38)
[2018-07-27] MEDS ORDERED: LISINOPRIL 10 MG TABLET PO SCH (10:00)
[2018-07-27] MEDS ORDERED: LISINOPRIL 5 MG TABLET PO SCH ×2 (10:00)
[2018-07-27] MEDS: GABAPENTIN 400 MG CAPSULE PO SCH ×2 (10:18→21:34)
[2018-07-27] MEDS: HYDRALAZINE HCL 50 MG TABLET PO SCH ×2 (10:18→21:35)
[2018-07-27] MEDS: ASPIRIN 81 MG TABLET, CHEWABLE PO SCH (10:19)
[2018-07-27] MEDS: METOPROLOL TARTRATE 25 MG TABLET PO SCH ×2 (10:19→21:34)
[2018-07-27] MEDS: AMLODIPINE BESYLATE 5 MG TABLET PO SCH (10:20)
[2018-07-27] MEDS: ENOXAPARIN SODIUM INJ 30 MG/0.3 ML DISP.SYRIN SUBCUT SCH (10:20)
--- NOTE | 2018-07-27 13:44 | PDOC PROGRESS REPORT ---
Subjective Progress Note for:: 07/27/18 Subjective:: Acute events overnight. Patient has stated that she slept all night she used her BiPAP. She feels better than yesterday. Denies any shortness of breath, fever, chills, nausea, vomiting, abdominal pain, diarrhea, constipation or any urinary symptoms Reason For Visit: COPD EXACERBATION Physical Exam Vital Signs: Temp Pulse Resp BP Pulse Ox 97.8 F 76 20 151/85 H 99 07/27/18 11:23 07/27/18 11:23 07/27/18 11:23 07/27/18 11:23 07/27/18 11:23 Intake & Output 07/26/18 07/27/18 07/28/18 06:59 06:59 06:59 Intake Total 250 1503 887 Balance 250 1503 887 Weight 109.8 kg General appearance: PRESENT: no acute distress, well-developed, well-nourished Head exam: PRESENT: atraumatic, normocephalic Eye exam: PRESENT: conjunctiva pink, EOMI, PERRLA. ABSENT: scleral icterus Ear exam: PRESENT: normal external ear exam Mouth exam: PRESENT: moist, tongue midline Neck exam: ABSENT: carotid bruit, JVD, lymphadenopathy, thyromegaly Respiratory exam: PRESENT: crackles, decreased breath sounds, prolonged expiratory phas. ABSENT: rales, rhonchi, wheezes Cardiovascular exam: PRESENT: RRR. ABSENT: diastolic murmur, rubs, systolic murmur Pulses: PRESENT: normal dorsalis pedis pul Vascular exam: PRESENT: normal capillary refill GI/Abdominal exam: PRESENT: normal bowel sounds, soft. ABSENT: distended, guarding, mass, organolmegaly, rebound, tenderness Rectal exam: PRESENT: deferred Extremities exam: PRESENT: full ROM. ABSENT: calf tenderness, clubbing, pedal edema Neurological exam: PRESENT: alert, awake, oriented to person, oriented to place , oriented to time, oriented to situation, CN II-XII grossly intact. ABSENT: motor sensory deficit Psychiatric exam: PRESENT: appropriate affect, normal mood. ABSENT: homicidal ideation, suicidal ideation Skin exam: PRESENT: dry, intact, warm. ABSENT: cyanosis, rash Results Laboratory Results: 07/25/18 21:50 07/26/18 17:12 07/26/18 17:12 Sodium 143.7 Potassium 3.6 Chloride 104 Carbon Dioxide 27 Anion Gap 13 BUN 49 H Creatinine 2.80 H Est GFR ( Amer) 21 L Est GFR (Non-Af Amer) 17 L Glucose 118 H Calcium 8.9 07/25/18 21:50 NT-Pro-B Natriuret Pep 3360 H Impressions: Chest X-Ray 07/25/18 19:50 IMPRESSION: Chronic lung changes. Borderline cardiomegaly without vinod pulmonary edema. Assessment & Plan - Diagnosis (1) Acute exacerbation of chronic obstructive pulmonary disease (COPD) Is this a current diagnosis for this admission?: Yes Plan: On physical examination patient does not seem to be responding very well to current treatment will switch to levofloxacin IV. Continue Solu-Medrol 60 mg every 8 hours, nebulizer treatment with DuoNeb every 3 hours as needed. Incentive spirometry. BiPAP as needed. (2) Chronic respiratory failure Is this a current diagnosis for this admission?: Yes Plan: Chronic hypoxic Respiratory failure secondary to COPD on 2 L of oxygen at home. Continue nebs, BiPAP. (3) CKD (chronic kidney disease), stage IV Is this a current diagnosis for this admission?: Yes Plan: Most likely due to uncontrolled hypertension and diabetes. Patient still making urine. Does not see a relocation manager. Monitor electrolytes and volume status. Outpatient nephrology follow-up (4) Chronic diastolic heart failure Is this a current diagnosis for this admission?: Yes Plan: As her volume status. Continue ASA, Lasix, CEM and beta-avila. (5) Hypertension Qualifiers: Hypertension type: essential hypertension Qualified Code(s): I10 - Essential (primary) hypertension Is this a current diagnosis for this admission?: Yes Plan: Restart home medication of hydralazine, beta-avila, CEM, amlodipine. (6) Tobacco abuse Is this a current diagnosis for this admission?: Yes Plan: Otherwise people in quitting. Start on nicotine patch
[2018-07-27] MEDS ORDERED: LEVOFLOXACIN 500 MG/D5W RTU 500 MG/100 ML RTUPB IV ONE (14:30)
[2018-07-27] MEDS: FUROSEMIDE 40 MG TABLET PO SCH (18:26)
[2018-07-27] MEDS: BUDESONIDE/FORMOTEROL 160-4.5 MCG 60 PUFF/6 GM MDI IH SCH (21:36)
[2018-07-27] MEDS ORDERED: GABAPENTIN 400 MG CAPSULE PO SCH (22:00)
[2018-07-28] MEDS: METHYLPREDNISOLONE INJ 125 MG/2 ML SDV IV SCH ×3 (06:38→21:04)
[2018-07-28] MEDS: IPRATROPIUM/ALBUTEROL 0.5-2.5 MG/3 ML AMPUL NEB PRN ×2 (08:15→15:48)
[2018-07-28] MEDS ORDERED: LISINOPRIL 5 MG TABLET PO SCH (10:00)
[2018-07-28] MEDS: LISINOPRIL 10 MG TABLET PO SCH (10:23)
[2018-07-28] MEDS: FUROSEMIDE 40 MG TABLET PO SCH (10:24)
[2018-07-28] MEDS: GABAPENTIN 400 MG CAPSULE PO SCH ×2 (10:24→21:04)
[2018-07-28] MEDS: METOPROLOL TARTRATE 25 MG TABLET PO SCH ×2 (10:24→21:02)
[2018-07-28] MEDS: HYDRALAZINE HCL 50 MG TABLET PO SCH ×2 (10:24→21:02)
[2018-07-28] MEDS: AMLODIPINE BESYLATE 10 MG TABLET PO SCH (10:24)
[2018-07-28] MEDS: FERROUS SULFATE 325 MG TABLET PO SCH (10:25)
[2018-07-28] MEDS: ASPIRIN 81 MG TABLET, CHEWABLE PO SCH (10:25)
[2018-07-28] MEDS: NICOTINE 14 MG/24 HR PATCH.TD24 TD SCH (10:26)
[2018-07-28] MEDS: BUDESONIDE/FORMOTEROL 160-4.5 MCG 60 PUFF/6 GM MDI IH SCH ×2 (10:28→21:04)
[2018-07-28] MEDS: ENOXAPARIN SODIUM INJ 30 MG/0.3 ML DISP.SYRIN SUBCUT SCH (10:32)
[2018-07-28 10:52] LABS: HEMATOCRIT 28.9 % (36.0-47.0); HEMOGLOBIN 9.3 g/dL (12.0-15.5); MEAN CORPUSCULAR HEMOGLOBIN 28.2 pg (27.0-33.4); MEAN CORPUSCULAR HGB CONC 32.2 g/dL (32.0-36.0); MEAN CORPUSCULAR VOLUME 88 fl (80-97); PLATELET COUNT 253 10^3/uL (150-450); RED BLOOD COUNT 3.29 10^6/uL (3.72-5.28); RED CELL DISTRIBUTION WIDTH 13.8 % (11.5-14.0); WHITE BLOOD COUNT 22.8 10^3/uL (4.0-10.5)
[2018-07-28 11:04] LABS: ABSOLUTE LYMPHOCYTES# (MANUAL) 0.9 10^3/uL (0.5-4.7); ABSOLUTE MONOCYTES # (MANUAL) 0.2 10^3/uL (0.1-1.4); ABSOLUTE NEUTROPHILS# (MANUAL) 21.7 10^3/uL (1.7-8.2); BASOPHILS % (MANUAL) 0 % (0-2); EOSINOPHILS % (MANUAL) 0 % (0-6); LYMPHOCYTES % (MANUAL) 4 % (13-45); MONOCYTES % (MANUAL) 1 % (3-13); SEGMENTED NEUTROPHILS % (MAN) 95 % (42-78); TOTAL CELLS COUNTED 100
[2018-07-28 11:05] LABS: TOXIC GRANULATION SLIGHT
[2018-07-28 11:06] LABS: PLATELET COMMENT ADEQUATE; POLYCHROMASIA SLIGHT
[2018-07-28 11:35] LABS: ALANINE AMINOTRANSFERASE 22 U/L (9-52); ALBUMIN 3.5 g/dL (3.5-5.0); ALKALINE PHOSPHATASE 80 U/L (38-126); ANION GAP 14 (5-19); ASPARTATE AMINO TRANSFERASE 15 U/L (14-36); BILIRUBIN,DIRECT 0.3 mg/dL (0.0-0.4); BILIRUBIN,TOTAL 0.3 mg/dL (0.2-1.3); BLOOD UREA NITROGEN 69 mg/dL (7-20); CARBON DIOXIDE 22 mmol/L (22-30); CHLORIDE 102 mmol/L (98-107); GLUCOSE 116 mg/dL (75-110); POTASSIUM 3.9 mmol/L (3.6-5.0); SODIUM 137.9 mmol/L (137-145); TOTAL PROTEIN 6.5 g/dL (6.3-8.2)
[2018-07-28] MEDS: LEVOFLOXACIN 250 MG/D5W RTU 250 MG/50 ML RTUPB IV SCH (12:00)
--- NOTE | 2018-07-28 12:53 | PDOC PROGRESS REPORT ---
Subjective Progress Note for:: 07/28/18 Subjective:: no acute events overnight. Patient has stated that she slept all night she used her BiPAP. Denies any shortness of breath, fever, chills, nausea, vomiting, abdominal pain, diarrhea, constipation or any urinary symptoms Reason For Visit: COPD EXACERBATION Physical Exam Vital Signs: Temp Pulse Resp BP Pulse Ox 98.3 F 72 22 H 159/68 H 98 07/28/18 11:16 07/28/18 11:16 07/28/18 11:16 07/28/18 11:16 07/28/18 11:16 Intake & Output 07/27/18 07/28/18 07/29/18 06:59 06:59 06:59 Intake Total 1503 2027 Balance 1503 2026 Weight 109.8 kg 110.6 kg General appearance: PRESENT: no acute distress, well-developed, well-nourished Head exam: PRESENT: atraumatic, normocephalic Eye exam: PRESENT: conjunctiva pink, EOMI, PERRLA. ABSENT: scleral icterus Ear exam: PRESENT: normal external ear exam Mouth exam: PRESENT: moist, tongue midline Neck exam: ABSENT: carotid bruit, JVD, lymphadenopathy, thyromegaly Respiratory exam: PRESENT: clear to auscultation brandon, crackles, prolonged expiratory phas. ABSENT: rales, rhonchi, wheezes Cardiovascular exam: PRESENT: RRR. ABSENT: diastolic murmur, rubs, systolic murmur Pulses: PRESENT: normal dorsalis pedis pul Vascular exam: PRESENT: normal capillary refill GI/Abdominal exam: PRESENT: normal bowel sounds, soft. ABSENT: distended, guarding, mass, organolmegaly, rebound, tenderness Rectal exam: PRESENT: deferred Extremities exam: PRESENT: full ROM. ABSENT: calf tenderness, clubbing, pedal edema Neurological exam: PRESENT: alert, awake, oriented to person, oriented to place , oriented to time, oriented to situation, CN II-XII grossly intact. ABSENT: motor sensory deficit Psychiatric exam: PRESENT: appropriate affect, normal mood. ABSENT: homicidal ideation, suicidal ideation Skin exam: PRESENT: dry, intact, warm. ABSENT: cyanosis, rash Results Laboratory Results: 07/28/18 10:30 07/28/18 10:30 07/28/18 07/28/18 10:30 10:30 WBC 22.8 H RBC 3.29 L Hgb 9.3 L Hct 28.9 L MCV 88 MCH 28.2 MCHC 32.2 RDW 13.8 Plt Count 253 Seg Neutrophils % Not Reportable Lymphocytes % Not Reportable Monocytes % Not Reportable Eosinophils % Not Reportable Basophils % Not Reportable Absolute Neutrophils Not Reportable Absolute Lymphocytes Not Reportable Absolute Monocytes Not Reportable Absolute Eosinophils Not Reportable Absolute Basophils Not Reportable Sodium 137.9 Potassium 3.9 Chloride 102 Carbon Dioxide 22 Anion Gap 14 BUN 69 H Creatinine 2.49 H Est GFR ( Amer) 24 L Est GFR (Non-Af Amer) 20 L Glucose 116 H Calcium 9.0 Magnesium 1.5 L Total Bilirubin 0.3 AST 15 ALT 22 Alkaline Phosphatase 80 Total Protein 6.5 Albumin 3.5 07/25/18 21:50 NT-Pro-B Natriuret Pep 3360 H Impressions: Chest X-Ray 07/25/18 19:50 IMPRESSION: Chronic lung changes. Borderline cardiomegaly without vinod pulmonary edema. Assessment & Plan - Diagnosis (1) Acute exacerbation of chronic obstructive pulmonary disease (COPD) Is this a current diagnosis for this admission?: Yes Plan: Continue IV levo. Continue Solu-Medrol 60 mg every 8 hours, nebulizer treatment with DuoNeb every 3 hours as needed. Incentive spirometry. BiPAP at night (2) Chronic respiratory failure Is this a current diagnosis for this admission?: Yes Plan: Chronic hypoxic Respiratory failure secondary to COPD on 2 L of oxygen at home. Continue nebs, BiPAP. (3) CKD (chronic kidney disease), stage IV Is this a current diagnosis for this admission?: Yes Plan: Creatinine trending down. Electrolytes within normal most likely due to uncontrolled hypertension and diabetes. Patient still making urine. 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 Monitor electrolytes and volume status. Outpatient nephrology follow-up (4) Chronic diastolic heart failure Is this a current diagnosis for this admission?: Yes Plan: Monitor volume status, cardiac diet, fluid restriction.. Continue ASA, Lasix, CEM and beta-avila. (5) Hypertension Qualifiers: Hypertension type: essential hypertension Qualified Code(s): I10 - Essential (primary) hypertension Is this a current diagnosis for this admission?: Yes Plan: Not controlled. Restart hydralazine beta-avila increase CEM inhibitor to 20 increase Lasix to 80.. (6) Tobacco abuse Is this a current diagnosis for this admission?: Yes Plan: Otherwise people in quitting. Start on nicotine patch
[2018-07-28 15:32] LABS: ANION GAP 11 (5-19); BLOOD UREA NITROGEN 66 mg/dL (7-20); CALCIUM 8.8 mg/dL (8.4-10.2); CARBON DIOXIDE 24 mmol/L (22-30); CHLORIDE 101 mmol/L (98-107); GLUCOSE 163 mg/dL (75-110); POTASSIUM 3.8 mmol/L (3.6-5.0); SODIUM 136.1 mmol/L (137-145)
[2018-07-28] MEDS: FUROSEMIDE 80 MG TABLET PO SCH (18:31)
[2018-07-29] MEDS: METHYLPREDNISOLONE INJ 125 MG/2 ML SDV IV SCH ×3 (06:14→22:13)
[2018-07-29 07:09] LABS: HEMATOCRIT 26.3 % (36.0-47.0); HEMOGLOBIN 8.7 g/dL (12.0-15.5); MEAN CORPUSCULAR HEMOGLOBIN 28.6 pg (27.0-33.4); MEAN CORPUSCULAR HGB CONC 32.9 g/dL (32.0-36.0); MEAN CORPUSCULAR VOLUME 87 fl (80-97); PLATELET COUNT 234 10^3/uL (150-450); RED BLOOD COUNT 3.02 10^6/uL (3.72-5.28); RED CELL DISTRIBUTION WIDTH 13.8 % (11.5-14.0); WHITE BLOOD COUNT 19.3 10^3/uL (4.0-10.5)
[2018-07-29 07:58] LABS: ABSOLUTE LYMPHOCYTES# (MANUAL) 1.2 10^3/uL (0.5-4.7); ABSOLUTE MONOCYTES # (MANUAL) 0.4 10^3/uL (0.1-1.4); ABSOLUTE NEUTROPHILS# (MANUAL) 17.8 10^3/uL (1.7-8.2); BASOPHILS % (MANUAL) 0 % (0-2); EOSINOPHILS % (MANUAL) 0 % (0-6); LYMPHOCYTES % (MANUAL) 6 % (13-45); MONOCYTES % (MANUAL) 2 % (3-13); SEGMENTED NEUTROPHILS % (MAN) 92 % (42-78); TOTAL CELLS COUNTED 100
[2018-07-29 07:59] LABS: PLATELET COMMENT ADEQUATE
[2018-07-29] MEDS: ASPIRIN 81 MG TABLET, CHEWABLE PO SCH (09:39)
[2018-07-29] MEDS: FERROUS SULFATE 325 MG TABLET PO SCH (09:39)
[2018-07-29] MEDS: HYDRALAZINE HCL 50 MG TABLET PO SCH ×2 (09:39→22:13)
[2018-07-29] MEDS: FUROSEMIDE 80 MG TABLET PO SCH ×2 (09:39→17:32)
[2018-07-29] MEDS: GABAPENTIN 400 MG CAPSULE PO SCH ×2 (09:40→22:14)
[2018-07-29] MEDS: ENOXAPARIN SODIUM INJ 30 MG/0.3 ML DISP.SYRIN SUBCUT SCH (09:40)
[2018-07-29] MEDS: METOPROLOL TARTRATE 25 MG TABLET PO SCH (09:40)
[2018-07-29] MEDS: NICOTINE 14 MG/24 HR PATCH.TD24 TD SCH (09:40)
[2018-07-29] MEDS: LISINOPRIL 10 MG TABLET PO SCH ×2 (09:42→12:49)
[2018-07-29] MEDS: AMLODIPINE BESYLATE 10 MG TABLET PO SCH (09:42)
[2018-07-29] MEDS: BUDESONIDE/FORMOTEROL 160-4.5 MCG 60 PUFF/6 GM MDI IH SCH ×2 (09:42→22:14)
--- NOTE | 2018-07-29 10:52 | PDOC PROGRESS REPORT ---
Subjective Progress Note for:: 07/29/18 Subjective:: no acute events overnight. Patient has stated that she slept all night she used her BiPAP. Denies any shortness of breath, fever, chills, nausea, vomiting, abdominal pain, diarrhea, constipation or any urinary symptoms Reason For Visit: COPD EXACERBATION Physical Exam Vital Signs: Temp Pulse Resp BP Pulse Ox 98.3 F 65 16 172/75 H 99 07/29/18 08:00 07/29/18 10:44 07/29/18 10:44 07/29/18 08:00 07/29/18 10:44 Intake & Output 07/28/18 07/29/18 07/30/18 06:59 06:59 06:59 Intake Total 2026 266 240 Balance 2026 2668 240 Weight 110.6 kg 110.6 kg General appearance: PRESENT: no acute distress, well-developed, well-nourished Head exam: PRESENT: atraumatic, normocephalic Eye exam: PRESENT: conjunctiva pink, EOMI, PERRLA. ABSENT: scleral icterus Ear exam: PRESENT: normal external ear exam Mouth exam: PRESENT: moist, tongue midline Neck exam: ABSENT: carotid bruit, JVD, lymphadenopathy, thyromegaly Respiratory exam: PRESENT: crackles, prolonged expiratory phas, symmetrical, unlabored. ABSENT: rales, rhonchi, wheezes Cardiovascular exam: PRESENT: RRR. ABSENT: diastolic murmur, rubs, systolic murmur Pulses: PRESENT: normal dorsalis pedis pul Vascular exam: PRESENT: normal capillary refill GI/Abdominal exam: PRESENT: normal bowel sounds, soft. ABSENT: distended, guarding, mass, organolmegaly, rebound, tenderness Rectal exam: PRESENT: deferred Extremities exam: PRESENT: full ROM. ABSENT: calf tenderness, clubbing, pedal edema Neurological exam: PRESENT: alert, awake, oriented to person, oriented to place , oriented to time, oriented to situation, CN II-XII grossly intact. ABSENT: motor sensory deficit Psychiatric exam: PRESENT: appropriate affect, normal mood. ABSENT: homicidal ideation, suicidal ideation Skin exam: PRESENT: dry, intact, warm. ABSENT: cyanosis, rash Results Laboratory Results: 07/29/18 06:08 07/28/18 14:25 07/28/18 07/28/18 07/28/18 10:30 10:30 14:25 WBC 22.8 H RBC 3.29 L Hgb 9.3 L Hct 28.9 L MCV 88 MCH 28.2 MCHC 32.2 RDW 13.8 Plt Count 253 Seg Neutrophils % Not Reportable Lymphocytes % Not Reportable Monocytes % Not Reportable Eosinophils % Not Reportable Basophils % Not Reportable Absolute Neutrophils Not Reportable Absolute Lymphocytes Not Reportable Absolute Monocytes Not Reportable Absolute Eosinophils Not Reportable Absolute Basophils Not Reportable Sodium 137.9 136.1 L Potassium 3.9 3.8 Chloride 102 101 Carbon Dioxide 22 24 Anion Gap 14 11 BUN 69 H 66 H Creatinine 2.49 H 2.48 H Est GFR ( Amer) 24 L 24 L Est GFR (Non-Af Amer) 20 L 20 L Glucose 116 H 163 H Calcium 9.0 8.8 Magnesium 1.5 L Total Bilirubin 0.3 AST 15 ALT 22 Alkaline Phosphatase 80 Total Protein 6.5 Albumin 3.5 07/29/18 06:08 WBC 19.3 H RBC 3.02 L Hgb 8.7 L Hct 26.3 L MCV 87 MCH 28.6 MCHC 32.9 RDW 13.8 Plt Count 234 Seg Neutrophils % Not Reportable Lymphocytes % Not Reportable Monocytes % Not Reportable Eosinophils % Not Reportable Basophils % Not Reportable Absolute Neutrophils Not Reportable Absolute Lymphocytes Not Reportable Absolute Monocytes Not Reportable Absolute Eosinophils Not Reportable Absolute Basophils Not Reportable Sodium Potassium Chloride Carbon Dioxide Anion Gap BUN Creatinine Est GFR ( Amer) Est GFR (Non-Af Amer) Glucose Calcium Magnesium Total Bilirubin AST ALT Alkaline Phosphatase Total Protein Albumin 07/25/18 21:50 NT-Pro-B Natriuret Pep 3360 H Impressions: Chest X-Ray 07/25/18 19:50 IMPRESSION: Chronic lung changes. Borderline cardiomegaly without vinod pulmonary edema. Assessment & Plan - Diagnosis (1) Acute exacerbation of chronic obstructive pulmonary disease (COPD) Is this a current diagnosis for this admission?: Yes Plan: Continue levofloxacin 250 p.o. daily due to CKD. Continue Solu-Medrol 60 mg every 8 hours, nebulizer treatment with DuoNeb every 3 hours as needed. Incentive spirometry. BiPAP at night (2) Chronic respiratory failure Is this a current diagnosis for this admission?: Yes Plan: Chronic hypoxic Respiratory failure secondary to COPD on 2 L of oxygen at home. Continue nebs, BiPAP. (3) CKD (chronic kidney disease), stage IV Is this a current diagnosis for this admission?: Yes Plan: Creatinine trending down. Electrolytes within normal most likely due to uncontrolled hypertension and diabetes. Patient still making urine. Does not see a geropsychologist. Monitor electrolytes and volume status. Outpatient nephrology follow-up (4) Chronic diastolic heart failure Is this a current diagnosis for this admission?: Yes Plan: Monitor volume status, cardiac diet, fluid restriction.. Continue ASA, Lasix, CEM and beta-avila. (5) Hypertension Qualifiers: Hypertension type: essential hypertension Qualified Code(s): I10 - Essential (primary) hypertension Is this a current diagnosis for this admission?: Yes Plan: Not controlled. Restart hydralazine beta-avila increase CEM inhibitor to 40 increase Lasix to 80.. (6) Tobacco abuse Is this a current diagnosis for this admission?: Yes Plan: Otherwise people in quitting. Start on nicotine patch
[2018-07-29] MEDS: LEVOFLOXACIN 250 MG/D5W RTU 250 MG/50 ML RTUPB IV SCH (12:49)
[2018-07-30] MEDS: METHYLPREDNISOLONE INJ 125 MG/2 ML SDV IV SCH (06:00)
[2018-07-30 06:02] LABS: HEMATOCRIT 29.7 % (36.0-47.0); HEMOGLOBIN 9.8 g/dL (12.0-15.5); MEAN CORPUSCULAR HEMOGLOBIN 28.9 pg (27.0-33.4); MEAN CORPUSCULAR HGB CONC 33.1 g/dL (32.0-36.0); MEAN CORPUSCULAR VOLUME 87 fl (80-97); PLATELET COUNT 265 10^3/uL (150-450); WHITE BLOOD COUNT 19.4 10^3/uL (4.0-10.5)
[2018-07-30 06:04] LABS: ALANINE AMINOTRANSFERASE 23 U/L (9-52); ALBUMIN 3.4 g/dL (3.5-5.0); ALKALINE PHOSPHATASE 81 U/L (38-126); ANION GAP 12 (5-19); ASPARTATE AMINO TRANSFERASE 14 U/L (14-36); BILIRUBIN,DIRECT 0.4 mg/dL (0.0-0.4); BILIRUBIN,TOTAL 0.4 mg/dL (0.2-1.3); BLOOD UREA NITROGEN 84 mg/dL (7-20); CALCIUM 9.1 mg/dL (8.4-10.2); CARBON DIOXIDE 24 mmol/L (22-30); CHLORIDE 100 mmol/L (98-107); GLUCOSE 125 mg/dL (75-110); POTASSIUM 4.2 mmol/L (3.6-5.0); SODIUM 135.7 mmol/L (137-145); TOTAL PROTEIN 6.3 g/dL (6.3-8.2)
[2018-07-30 06:38] LABS: ABSOLUTE NEUTROPHILS# (MANUAL) 18.4 10^3/uL (1.7-8.2); BASOPHILS % (MANUAL) 0 % (0-2); EOSINOPHILS % (MANUAL) 0 % (0-6); LYMPHOCYTES % (MANUAL) 5 % (13-45); MONOCYTES % (MANUAL) 0 % (3-13); SEGMENTED NEUTROPHILS % (MAN) 95 % (42-78); TOTAL CELLS COUNTED 100
[2018-07-30 06:39] LABS: ANISOCYTOSIS SLIGHT; PLATELET COMMENT ADEQUATE; POLYCHROMASIA SLIGHT
[2018-07-30] MEDS ORDERED: ACETAMINOPHEN 325 MG TABLET PO PRN (08:44)
[2018-07-30] MEDS ORDERED: PROMETHAZINE HCL INJ 25 MG/1 ML VIAL IV PRN (09:00)
[2018-07-30] MEDS ORDERED: CEFTRIAXONE 1 GM/D5W RTU 1 GM/50 ML RTUPB IV SCH (10:00)
--- NOTE | 2018-07-30 10:37 | PDOC PROGRESS REPORT ---
Subjective Progress Note for:: 07/30/18 Subjective:: no acute events overnight. Patient has stated that she slept all night she used her BiPAP. Denies any shortness of breath, fever, chills, nausea, vomiting, abdominal pain, diarrhea, constipation or any urinary symptoms Reason For Visit: COPD EXACERBATION Physical Exam Vital Signs: Temp Pulse Resp BP Pulse Ox 97.7 F 66 18 158/76 H 100 07/30/18 07:05 07/30/18 08:55 07/30/18 08:55 07/30/18 07:05 07/30/18 08:55 Intake & Output 07/29/18 07/30/18 07/31/18 06:59 06:59 06:59 Intake Total 2669 1370 Balance 2669 1370 Weight 110.6 kg General appearance: PRESENT: no acute distress, well-developed, well-nourished Head exam: PRESENT: atraumatic, normocephalic Eye exam: PRESENT: conjunctiva pink, EOMI, PERRLA. ABSENT: scleral icterus Ear exam: PRESENT: normal external ear exam Mouth exam: PRESENT: moist, tongue midline Neck exam: ABSENT: carotid bruit, JVD, lymphadenopathy, thyromegaly Respiratory exam: PRESENT: clear to auscultation brandon, prolonged expiratory phas , wheezes - Expiratory wheezing mild, right upper lung. ABSENT: rales, rhonchi Cardiovascular exam: PRESENT: RRR. ABSENT: diastolic murmur, rubs, systolic murmur Pulses: PRESENT: normal dorsalis pedis pul Vascular exam: PRESENT: normal capillary refill GI/Abdominal exam: PRESENT: normal bowel sounds, soft. ABSENT: distended, guarding, mass, organolmegaly, rebound, tenderness Rectal exam: PRESENT: deferred Extremities exam: PRESENT: full ROM. ABSENT: calf tenderness, clubbing, pedal edema Neurological exam: PRESENT: alert, awake, oriented to person, oriented to place , oriented to time, oriented to situation, CN II-XII grossly intact. ABSENT: motor sensory deficit Psychiatric exam: PRESENT: appropriate affect, normal mood. ABSENT: homicidal ideation, suicidal ideation Skin exam: PRESENT: dry, intact, warm. ABSENT: cyanosis, rash Results Laboratory Results: 07/30/18 04:33 07/30/18 04:33 07/30/18 07/30/18 04:33 04:33 WBC 19.4 H RBC 3.40 L Hgb 9.8 L Hct 29.7 L MCV 87 MCH 28.9 MCHC 33.1 RDW 14.0 Plt Count 265 Seg Neutrophils % Not Reportable Lymphocytes % Not Reportable Monocytes % Not Reportable Eosinophils % Not Reportable Basophils % Not Reportable Absolute Neutrophils Not Reportable Absolute Lymphocytes Not Reportable Absolute Monocytes Not Reportable Absolute Eosinophils Not Reportable Absolute Basophils Not Reportable Sodium 135.7 L Potassium 4.2 Chloride 100 Carbon Dioxide 24 Anion Gap 12 BUN 84 H Creatinine 2.62 H Est GFR ( Amer) 22 L Est GFR (Non-Af Amer) 18 L Glucose 125 H Calcium 9.1 Total Bilirubin 0.4 AST 14 ALT 23 Alkaline Phosphatase 81 Total Protein 6.3 Albumin 3.4 L 07/25/18 21:50 NT-Pro-B Natriuret Pep 3360 H Impressions: Chest X-Ray 07/25/18 19:50 IMPRESSION: Chronic lung changes. Borderline cardiomegaly without vinod pulmonary edema. Assessment & Plan - Diagnosis (1) Acute exacerbation of chronic obstructive pulmonary disease (COPD) Is this a current diagnosis for this admission?: Yes Plan: Continue levofloxacin 250 p.o. daily due to CKD. Continue Solu-Medrol 4 mg every 8 hours, nebulizer treatment with DuoNeb every 3 hours as needed. Incentive spirometry. BiPAP at night Patient is improving but slowly physical examination of the respiratory system is much better than yesterday but she still has expiratory wheezes on the right side. Due to patient's recurrent COPD exacerbation she needs a longer duration of steroids and antibiotics. (2) Chronic respiratory failure Is this a current diagnosis for this admission?: Yes Plan: Chronic hypoxic Respiratory failure secondary to COPD on 2 L of oxygen at home. Continue nebs, BiPAP. (3) CKD (chronic kidney disease), stage IV Is this a current diagnosis for this admission?: Yes Plan: Most likely due to chronic hypertension. Creatinine stable, electrolytes within normal limits patient still making urine. Does not see a loading manager. Monitor electrolytes and volume status. Outpatient nephrology follow-up (4) Chronic diastolic heart failure Is this a current diagnosis for this admission?: Yes Plan: Mild grade 1/4 diastolic dysfunction. Ejection fraction more than 60%. Monitor volume status, cardiac diet, fluid restriction.. Continue ASA, Lasix, CEM and beta-avila. (5) Hypertension Qualifiers: Hypertension type: essential hypertension Qualified Code(s): I10 - Essential (primary) hypertension Is this a current diagnosis for this admission?: Yes Plan: Not controlled. Continue hydralazine, Lasix, CEM, beta-avila (6) Tobacco abuse Is this a current diagnosis for this admission?: Yes Plan: Otherwise people in quitting. Start on nicotine patch
[2018-07-30] MEDS: NICOTINE 14 MG/24 HR PATCH.TD24 TD SCH (10:49)
[2018-07-30] MEDS: CARVEDILOL 12.5 MG TABLET PO SCH ×2 (10:50→21:37)
[2018-07-30] MEDS: FERROUS SULFATE 325 MG TABLET PO SCH (10:50)
[2018-07-30] MEDS: AMLODIPINE BESYLATE 10 MG TABLET PO SCH (10:50)
[2018-07-30] MEDS: ASPIRIN 81 MG TABLET, CHEWABLE PO SCH (10:50)
[2018-07-30] MEDS: FUROSEMIDE 80 MG TABLET PO SCH ×2 (10:50→18:25)
[2018-07-30] MEDS: LISINOPRIL 10 MG TABLET PO SCH (10:50)
[2018-07-30] MEDS: LEVOFLOXACIN 250 MG TABLET PO SCH (10:51)
[2018-07-30] MEDS: GABAPENTIN 400 MG CAPSULE PO SCH ×2 (10:56→21:37)
[2018-07-30] MEDS: ENOXAPARIN SODIUM INJ 30 MG/0.3 ML DISP.SYRIN SUBCUT SCH (10:56)
[2018-07-30] MEDS: HYDRALAZINE HCL 50 MG TABLET PO SCH ×2 (10:56→21:37)
[2018-07-30] MEDS: BUDESONIDE/FORMOTEROL 160-4.5 MCG 60 PUFF/6 GM MDI IH SCH ×2 (11:04→21:35)
[2018-07-30] MEDS: METHYLPREDNISOLONE INJ 40 MG/1 ML SDV IV SCH ×2 (15:30→21:36)
[2018-07-31] MEDS: METHYLPREDNISOLONE INJ 40 MG/1 ML SDV IV SCH ×2 (05:27→14:43)
[2018-07-31 06:04] LABS: HEMATOCRIT 28.3 % (36.0-47.0); HEMOGLOBIN 9.3 g/dL (12.0-15.5); MEAN CORPUSCULAR HEMOGLOBIN 28.9 pg (27.0-33.4); MEAN CORPUSCULAR HGB CONC 32.9 g/dL (32.0-36.0); MEAN CORPUSCULAR VOLUME 88 fl (80-97); PLATELET COUNT 223 10^3/uL (150-450); RED BLOOD COUNT 3.22 10^6/uL (3.72-5.28); RED CELL DISTRIBUTION WIDTH 13.6 % (11.5-14.0); WHITE BLOOD COUNT 15.2 10^3/uL (4.0-10.5)
[2018-07-31 06:28] LABS: ALANINE AMINOTRANSFERASE 32 U/L (9-52); ALBUMIN 2.9 g/dL (3.5-5.0); ALKALINE PHOSPHATASE 90 U/L (38-126); ANION GAP 13 (5-19); ASPARTATE AMINO TRANSFERASE 18 U/L (14-36); BILIRUBIN,DIRECT 0.1 mg/dL (0.0-0.4); BILIRUBIN,TOTAL 0.1 mg/dL (0.2-1.3); BLOOD UREA NITROGEN 92 mg/dL (7-20); CALCIUM 8.9 mg/dL (8.4-10.2); CARBON DIOXIDE 22 mmol/L (22-30); CHLORIDE 100 mmol/L (98-107); GLUCOSE 161 mg/dL (75-110); POTASSIUM 4.1 mmol/L (3.6-5.0); SODIUM 135.1 mmol/L (137-145); TOTAL PROTEIN 5.6 g/dL (6.3-8.2)
[2018-07-31 06:32] LABS: ABSOLUTE LYMPHOCYTES# (MANUAL) 0.5 10^3/uL (0.5-4.7); ABSOLUTE NEUTROPHILS# (MANUAL) 14.7 10^3/uL (1.7-8.2); BASOPHILS % (MANUAL) 0 % (0-2); EOSINOPHILS % (MANUAL) 0 % (0-6); LYMPHOCYTES % (MANUAL) 3 % (13-45); MONOCYTES % (MANUAL) 0 % (3-13); SEGMENTED NEUTROPHILS % (MAN) 97 % (42-78); TOTAL CELLS COUNTED 100
[2018-07-31 06:33] LABS: PLATELET COMMENT ADEQUATE; POLYCHROMASIA SLIGHT
[2018-07-31] MEDS: IPRATROPIUM/ALBUTEROL 0.5-2.5 MG/3 ML AMPUL NEB PRN (09:23)
[2018-07-31] MEDS: LEVOFLOXACIN 250 MG TABLET PO SCH (11:03)
[2018-07-31] MEDS: HYDRALAZINE HCL 50 MG TABLET PO SCH (11:03)
[2018-07-31] MEDS: LISINOPRIL 10 MG TABLET PO SCH (11:04)
[2018-07-31] MEDS: FERROUS SULFATE 325 MG TABLET PO SCH (11:04)
[2018-07-31] MEDS: FUROSEMIDE 80 MG TABLET PO SCH (11:04)
[2018-07-31] MEDS: ASPIRIN 81 MG TABLET, CHEWABLE PO SCH (11:04)
[2018-07-31] MEDS: AMLODIPINE BESYLATE 10 MG TABLET PO SCH (11:05)
[2018-07-31] MEDS: CARVEDILOL 12.5 MG TABLET PO SCH (11:05)
[2018-07-31] MEDS: GABAPENTIN 400 MG CAPSULE PO SCH (11:05)
[2018-07-31] MEDS: BUDESONIDE/FORMOTEROL 160-4.5 MCG 60 PUFF/6 GM MDI IH SCH (11:06)
[2018-07-31] MEDS: NICOTINE 14 MG/24 HR PATCH.TD24 TD SCH (11:09)
[2018-07-31] MEDS: ENOXAPARIN SODIUM INJ 30 MG/0.3 ML DISP.SYRIN SUBCUT SCH (11:10)
[2018-07-31 16:28] VITALS: BP 163/72
--- NOTE | 2018-07-31 19:28 | PDOC DISCHARGE SUMMARY ---
General - Admit/Disc Date/PCP Admission Date/Primary Care Provider: 07/25/18 21:25 WENCESLAO PEGUERO DO Discharge Date: 07/31/18 - Discharge Diagnosis (1) Acute exacerbation of chronic obstructive pulmonary disease (COPD) Is this a current diagnosis for this admission?: Yes - Additional Information Resuscitation Status: Full Code Discharge Diet: Cardiac Discharge Activity: Activity As Tolerated, Balance Activity w/Rest, Energy Conservation, Weigh Daily Prescriptions: Levofloxacin [Levaquin 250 mg Tablet] 250 mg PO DAILY 2 Days #2 tablet Prednisone 20 mg PO BID #8 tablet Home Medications: Albuterol Sulfate [Proair HFA Inhalation Aerosol 8.5 gm MDI] 2 puff IH DAILY 06/06 Amlodipine Besylate [Norvasc 10 mg Tablet] 10 mg PO DAILY 05/26/18 Aspirin [Aspirin EC] 81 mg PO DAILY 05/26/18 Budesonide/Formoterol Fumarate [Symbicort 160-4.5 Mcg Inhaler] 2 puff IH Q12 06/06 Cyanocobalamin (Vitamin B-12) [Vitamin B-12 100 mcg Tablet] 100 mcg PO DAILY 06/06 Ferrous Sulfate [Feosol 325 mg Tablet] 325 mg PO DAILY 05/26/18 Gabapentin [Neurontin 400 mg Capsule] 400 mg PO Q12 05/26/18 Hydralazine HCl [Apresoline 50 mg Tablet] 100 mg PO Q12 05/26/18 Lisinopril [Prinivil 5 mg Tablet] 5 mg PO DAILY 05/26/18 Tiotropium [place] [Spiriva [place]er 5 Cap/Kit (18 Mcg/Cap)] 1 cap IH DAILY Tramadol HCl [Ultram 50 mg Tablet] 50 mg PO Q12HP PRN 05/26/18 Metoprolol Succinate [Toprol Xl 25 mg Tab.sr] 25 mg PO Q12 #60 tab.sr.24h Fluticasone Propionate [Flonase Nasal [place] 50 Mcg/[place] 16 gm] 1 spray NAREB DAILY 07/26/18 Furosemide [Lasix 40 mg Tablet] 80 mg PO DAILY 07/26/18 Acetaminophen [Tylenol 325 mg Tablet] 650 mg PO Q6HP PRN tablet 07/31/18 Levofloxacin [Levaquin 250 mg Tablet] 250 mg PO DAILY 2 Days #2 tablet 07/31/18 Prednisone 20 mg PO BID #8 tablet 07/31/18 History of Present Illness History of Present Illness: BOOM KELLY is a 62 year old female with chronic respiratory failure secondary to COPD on 2 L oxygen at home, unfortunately still a smoker. Patient was discharged from our facility on 07/14 with a diagnosis of COPD and CHF exacerbation. Since then tells me that she was doing well until today that she had an appointment with her dentist, she is supposed to have her nebulizer treatments every 4 hours but she had half treatment when she woke up and half treatment during the day on top of that she smoked 1 cigarette. Around 5 PM started feeling progressive shortness of breath associated to worsening wheezing , cough, denies any sputum, fever, chills, chest pain, dizziness, lightheadedness, nausea, vomiting, changes in her bowel movements or changes in her urine. Patient had a 5 nebulizer treatments in the ED unsuccessfully, is still short of breath and wheezing. No laboratory has been done. Not on antibiotics or prednisone. Chest x-ray showed persistent pulmonary edema. Currently saturating 97% on 2 L nasal cannula. Hospital Course Hospital Course: Ms. Kelly is a 60-year-old female who was admitted for acute COPD exacerbation. Patient was initially started on Levaquin, IV steroids and breathing treatments. She did improve significantly over the next few days however she initially felt that she was not at her baseline. Assumed care today , patient does say that she has been feeling that she is back to her baseline since yesterday. She does not have any wheezing today. She says she is feeling much better today. She is currently saturating well on 2 L of nasal cannula which is also her home O2 requirement. Patient will be discharged on 2 more days of levofloxacin and 4 more days of prednisone. Physical Exam Vital Signs: Temp Pulse Resp BP Pulse Ox 98.0 F 67 16 187/89 H 99 07/31/18 16:06 07/31/18 16:06 07/31/18 16:06 07/31/18 16:06 07/31/18 16:06 Intake & Output 07/30/18 07/31/18 08/01/18 06:59 06:59 06:59 Intake Total 1370 780 620 Balance 1370 780 620 Weight 242 lb 15.19 oz General appearance: PRESENT: no acute distress, well-developed, well-nourished Head exam: PRESENT: atraumatic, normocephalic Eye exam: PRESENT: conjunctiva pink, EOMI, PERRLA. ABSENT: scleral icterus Ear exam: PRESENT: normal external ear exam Mouth exam: PRESENT: moist, tongue midline Neck exam: ABSENT: carotid bruit, JVD, lymphadenopathy, thyromegaly Respiratory exam: PRESENT: clear to auscultation brandon, rhonchi - occasional rhonchi, no wheezing. ABSENT: rales, wheezes Cardiovascular exam: PRESENT: RRR. ABSENT: diastolic murmur, rubs, systolic murmur Pulses: PRESENT: normal dorsalis pedis pul GI/Abdominal exam: PRESENT: normal bowel sounds, soft. ABSENT: distended, guarding, mass, organolmegaly, rebound, tenderness Rectal exam: PRESENT: deferred Neurological exam: PRESENT: alert, awake, oriented to person, oriented to place , oriented to time, oriented to situation, CN II-XII grossly intact. ABSENT: motor sensory deficit Results Laboratory Results: 07/31/18 05:36 07/31/18 05:36 07/31/18 07/31/18 05:36 05:36 WBC 15.2 H RBC 3.22 L Hgb 9.3 L Hct 28.3 L MCV 88 MCH 28.9 MCHC 32.9 RDW 13.6 Plt Count 223 Seg Neutrophils % Not Reportable Lymphocytes % Not Reportable Monocytes % Not Reportable Eosinophils % Not Reportable Basophils % Not Reportable Absolute Neutrophils Not Reportable Absolute Lymphocytes Not Reportable Absolute Monocytes Not Reportable Absolute Eosinophils Not Reportable Absolute Basophils Not Reportable Sodium 135.1 L Potassium 4.1 Chloride 100 Carbon Dioxide 22 Anion Gap 13 BUN 92 H Creatinine 2.82 H Est GFR ( Amer) 21 L Est GFR (Non-Af Amer) 17 L Glucose 161 H Calcium 8.9 Total Bilirubin 0.1 L AST 18 ALT 32 Alkaline Phosphatase 90 Total Protein 5.6 L Albumin 2.9 L 07/25/18 21:50 NT-Pro-B Natriuret Pep 3360 H Impressions: Chest X-Ray 07/25/18 19:50 IMPRESSION: Chronic lung changes. Borderline cardiomegaly without vinod pulmonary edema. Qualifiers - * PATIENT BEING DISCHARGED WITH ANY OF THE FOLLOWING DIAGNOSIS: No
== END 2018-07-31 17:16 | disposition home or self-care (01) | DRG 191 ==
LOC: ER 17:22 → EH 21:25 → 4W 07-26 10:05 → 4N 07-29 16:52
PROVIDERS: ADMIT Internal Medicine; ATTEND Internal Medicine
PROC: 5A09557 Assistance with Respiratory Ventilation, Greater than 96 Consecutive Hours, Continuous Positive Airway Pressure (ICD-10-PCS; principal; 2018-07-26)
PROC: 3E0F73Z Introduction of Anti-inflammatory into Respiratory Tract, Via Natural or Artificial Opening (ICD-10-PCS; 2018-07-26)
DX: J44.1 Chronic obstructive pulmonary disease with (acute) exacerbation (principal); J96.11 Chronic respiratory failure with hypoxia; I13.0 Hypertensive heart and chronic kidney disease with heart failure and stage 1 through stage 4 chronic kidney disease, or unspecified chronic kidney disease; N18.4 Chronic kidney disease, stage 4 (severe); I50.32 Chronic diastolic (congestive) heart failure; I25.10 Atherosclerotic heart disease of native coronary artery without angina pectoris; E78.00 Pure hypercholesterolemia, unspecified; R01.1 Cardiac murmur, unspecified; M10.9 Gout, unspecified; F32.9 Major depressive disorder, single episode, unspecified; F17.210 Nicotine dependence, cigarettes, uncomplicated; Z79.899 Other long term (current) drug therapy; Z99.81 Dependence on supplemental oxygen; Z79.82 Long term (current) use of aspirin; Z82.3 Family history of stroke; Z83.3 Family history of diabetes mellitus; Z82.49 Family history of ischemic heart disease and other diseases of the circulatory system
CPT/HCPCS: 36415; 36600; 71046; 80048; 80053; 82803; 83735; 83880; 85025; 94640; 94660; 94799; 99285; J0456; J1650; J1956; J2920; J2930; J3490; J7060; J7620

== ENCOUNTER 2018-09-06 23:27 | Inpatient (IN) | payer OTHER, MEDICARE, MEDICAID ==
--- NOTE | 2018-09-07 00:07 | ER Document Report ---
ED General - General Stated Complaint: RESPIRATORY DISTRESS Time Seen by Provider: 09/06/18 23:53 Notes: Patient is a 62-year-old female with a past medical history of CHF, COPD with oxygen dependence, ongoing tobacco abuse who presents with shortness of breath, cough, that is been progressively worsening over the last 24 hours. Patient states this feels very similar to previous COPD or CHF exacerbations. She has not seen her general doctor regarding today's concerns. She has been trying home breathing treatments with minimal to no improvement. EMS does report the patient was in severe distress on their initial presentation and has improved with their management in the field. Patient denies chest pain, fever or constitutional symptoms. States that she has had a dry cough. Denies any increase in weight. Has been taking all medications as directed. TRAVEL OUTSIDE OF THE [place] IN LAST 30 DAYS: No - Related Data Allergies/Adverse Reactions: No Known Allergies Allergy (Verified 07/26/18 09:38) Past Medical History - General Information source: Patient - Social History Smoking Status: Current Every Day Smoker Frequency of alcohol use: None Drug Abuse: None Lives with: Alone Family History: CVA, Hypertension, Other - diabetes - Past Medical History Cardiac Medical History: Reports: Hx Congestive Heart Failure, Hx Coronary Artery Disease, Hx Hypercholesterolemia, Hx Hypertension, Hx Heart Murmur Pulmonary Medical History: Reports: Hx Asthma, Hx Bronchitis, Hx COPD, Hx Pneumonia Denies: Hx Tuberculosis Renal/ Medical History: Denies: Hx Peritoneal Dialysis GI Medical History: Denies: Hx Cirrhosis, Hx Crohn's Disease, Hx Diverticulitis , Hx Gastroesophageal Reflux Disease, Hx Hepatitis, Hx Hiatal Hernia Musculoskeletal Medical History: Denies Hx Arthritis, Denies Hx Fibromyalgia, Reports Hx Gout Skin Medical History: Denies Hx Eczema, Denies Hx Psoriasis Psychiatric Medical History: Reports: Hx Depression Traumatic Medical History: Denies: Hx Gunshot Wound, Hx Pneumothorax, Hx Traumatic Brain Injury Infectious Medical History: Denies: Hx Hepatitis Past Surgical History: Reports: Hx Section - x 4, Hx Tubal Ligation - Immunizations Hx Diphtheria, Pertussis, Tetanus Vaccination: Yes Hx Pneumococcal Vaccination: 05/06/12 Review of Systems - Review of Systems Notes: Constitutional: Negative for fever. HENT: Negative for sore throat. Eyes: Negative for visual changes. Cardiovascular: Negative for chest pain. Respiratory: Positive for shortness of breath. Gastrointestinal: Negative for abdominal pain, vomiting or diarrhea. Genitourinary: Negative for dysuria. Musculoskeletal: Negative for back pain. Skin: Negative for rash. Neurological: Negative for headaches, weakness or numbness. 10 point ROS negative except as marked above and in HPI. Physical Exam - Vital signs Vitals: Pulse Ox 94 09/06/18 23:31 Interpretation: Tachycardic, Tachypneic Notes: PHYSICAL EXAMINATION: GENERAL: Somewhat ill in appearance, moderately tachypneic HEAD: Atraumatic, normocephalic. EYES: Pupils equal round and reactive to light, extraocular movements intact, sclera anicteric, conjunctiva are normal. ENT: nares patent, oropharynx clear without exudates. Moist mucous membranes. NECK: Normal range of motion, supple without lymphadenopathy LUNGS: Diffuse infiltrating extra Tory wheezing with crackles in all lung tan. Moderate tachypnea. HEART: Regular tachycardia without murmurs ABDOMEN: Soft, nontender, normoactive bowel sounds. No guarding, no rebound. No masses appreciated. EXTREMITIES: Normal range of motion, trace edema that is equal and symmetric in the bilateral lower extremities. No cyanosis. NEUROLOGICAL: No focal neurological deficits. Moves all extremities spontaneously and on command. PSYCH: Normal mood, normal affect. SKIN: Warm, Dry, normal turgor, no rashes or lesions noted. Course - Re-evaluation Re-evalutation: 09/07/18 00:06 Patient presents with moderate tachypnea, apparently was in significant distress prior to arrival. Lung sounds show crackles in all tan with associated wheezing mixed picture of COPD versus possible CHF. Bedside pleural ultrasound does not show any overt pulmonary edema with B-lines. Chest x-ray pending. Will obtain labs, continue on spinal oxygen. Patient does not require positive pressure ventilation at this point. Will reassess at regular intervals as patient was apparently in significant distress prior to arrival. Will continue to reassess at regular intervals 0110-patient's work of breathing remains much improved, saturating 97% on 2 L by nasal cannula which is her normal. However her lung exam continues to show prominent wheezing all lung tan. Will continue to reassess. Patient is on continuous nebulizers. 09/07/18 02:19 The patient is no longer having significant tachypnea, does continue with prominent wheezing despite multiple treatments. Will discuss with hospitalist for admission given her ongoing poor lung exam. 09/07/18 02:33 Patient has been accepted by the hospitalist for admission. - Vital Signs Vital signs: Temp Pulse Resp BP Pulse Ox 20 168/85 H 94 09/07/18 00:31 09/07/18 00:31 09/07/18 00:31 - Laboratory Result Diagrams: 09/06/18 23:56 09/06/18 23:56 Laboratory results interpreted by me: 09/06/18 09/06/18 09/06/18 23:56 23:56 23:56 RBC 3.35 L Hgb 9.8 L Hct 29.6 L Chloride 108 H BUN 39 H Creatinine 2.44 H Est GFR ( Amer) 24 L Est GFR (Non-Af Amer) 20 L Alkaline Phosphatase 135 H NT-Pro-B Natriuret Pep 1510 H - Diagnostic Test Radiology reviewed: Image reviewed, Reports reviewed Radiology results interpreted by me: 09/07/18 02:20 CXR: No acute infiltrate - EKG Interpretation by Me Additional EKG results interpreted by me: 09/07/18 02:35 Sinus rhythm. Rate 84. LVH. No ST elevations or depressions. QTC is 464. Critical Care Note - Critical Care Note Total time excluding time spent on procedures (mins): 36 Comments: Critical care time spent obtaining history from patient or surrogate, discussions with consultants, development of treatment plan with patient or surrogate, evaluation of patient's response to treatment, examination of patient , ordering and performing treatments and interventions, ordering and review of laboratory studies, re-evaluation of patient's condition, ordering and review of radiographic studies and review of old charts Discharge - Discharge Clinical Impression: Severe obesity (BMI 35.0-39.9) with comorbidity, COPD with exacerbation, Respiratory distress, CKD (chronic kidney disease), stage IV Condition: Fair Disposition: ADMITTED INPATIENT Admitting Provider: Hospitalist Unit Admitted: Telemetry Referrals: WENCESLAO PEGUERO DO [Primary Care Provider] - Follow up as needed
[2018-09-07 00:12] LABS: ABSOLUTE BASOPHILS # (AUTO) 0.1 10^3/uL (0.0-0.2); ABSOLUTE EOSINOPHILS # (AUTO) 0.3 10^3/uL (0.0-0.6); ABSOLUTE LYMPHOCYTES (AUTO) 2.4 10^3/uL (0.5-4.7); ABSOLUTE MONOCYTES (AUTO) 0.7 10^3/uL (0.1-1.4); ABSOLUTE NEUT (AUTO) 6.9 10^3/uL (1.7-8.2); BASOPHILS % (AUTO) 0.8 % (0-2); EOSINOPHILS % (AUTO) 3.3 % (0-6); HEMATOCRIT 29.6 % (36.0-47.0); HEMOGLOBIN 9.8 g/dL (12.0-15.5); LYMPHOCYTES % (AUTO) 22.8 % (13-45); MEAN CORPUSCULAR HEMOGLOBIN 29.1 pg (27.0-33.4); MEAN CORPUSCULAR VOLUME 88 fl (80-97); PLATELET COUNT 287 10^3/uL (150-450); RED BLOOD COUNT 3.35 10^6/uL (3.72-5.28); RED CELL DISTRIBUTION WIDTH 13.7 % (11.5-14.0); SEGMENTED NEUTROPHILS % (AUTO) 66.1 % (42-78); TOTAL CELLS COUNTED % (AUTO) 100 %; WHITE BLOOD COUNT 10.4 10^3/uL (4.0-10.5)
[2018-09-07 00:51] LABS: ALANINE AMINOTRANSFERASE 15 U/L (9-52); ALBUMIN 3.9 g/dL (3.5-5.0); ALKALINE PHOSPHATASE 135 U/L (38-126); ANION GAP 12 (5-19); ASPARTATE AMINO TRANSFERASE 21 U/L (14-36); BILIRUBIN,DIRECT 0.3 mg/dL (0.0-0.4); BILIRUBIN,TOTAL 0.4 mg/dL (0.2-1.3); BLOOD UREA NITROGEN 39 mg/dL (7-20); CARBON DIOXIDE 24 mmol/L (22-30); CHLORIDE 108 mmol/L (98-107); GLUCOSE 91 mg/dL (75-110); TOTAL PROTEIN 7.2 g/dL (6.3-8.2)
--- NOTE | 2018-09-07 00:52 | RADIOLOGY REPORT (SQ) ---
EXAM DESCRIPTION: X-ray single view chest. CLINICAL HISTORY: 62 years Female, sob COMPARISON: Prior portable chest performed on 05/25/2018. TECHNIQUE: Single portable view of the chest performed on 09/07/2018 at 12:30 AM FINDINGS: The lungs are well expanded and are clear. There is no evidence of a pneumothorax. The cardiac silhouette is grossly stable and is prominent. The overall size of the cardiac silhouette may be accentuated by the portable technique. The mediastinal contours are normal. No acute osseous abnormality is identified. There are degenerative changes of the thoracic spine. No focal soft tissue abnormalities are seen. Lines and tubes: None. IMPRESSION: 1. No evidence of acute intrathoracic disease. 2. Prominence of the cardiac silhouette as described above.
[2018-09-07 00:56] LABS: POTASSIUM 4.2 mmol/L (3.6-5.0)
[2018-09-07] MEDS ORDERED: METHYLPREDNISOLONE INJ 125 MG/2 ML SDV IV ONE (01:01)
[2018-09-07] MEDS ORDERED: ALBUTEROL SULFATE 0.083% NEB 2.5 MG/3 ML AMPUL NEB ONE (01:01)
[2018-09-07] MEDS: MAGNESIUM SULFATE/D5W 1 GM/100 ML RTUPB IV SCH ×2 (01:09→01:42)
[2018-09-07] MEDS ORDERED: PROMETHAZINE HCL 25 MG TABLET PO PRN (04:30)
[2018-09-07] MEDS ORDERED: MAG HYDROX/AL HYDROX/SIMETH SUSP 30 ML UDCUP PO PRN (04:30)
[2018-09-07] MEDS ORDERED: PROMETHAZINE HCL INJ 25 MG/1 ML VIAL IV PRN (04:30)
[2018-09-07] MEDS ORDERED: IPRATROPIUM/ALBUTEROL 0.5-2.5 MG/3 ML AMPUL NEB PRN (04:30)
[2018-09-07] MEDS ORDERED: ACETAMINOPHEN 325 MG TABLET PO PRN (04:30)
[2018-09-07] MEDS ORDERED: METOPROLOL TARTRATE PF/INJ 5 MG/5 ML SDV IV PRN (04:34)
--- NOTE | 2018-09-07 05:26 | PDOC H&P ---
History of Present Illness Admission Date/PCP: 09/07/18 02:53 WENCESLAO PEGUERO DO Patient complains of: Shortness of breath History of Present Illness: BOOM TODD is a 62 year old female with history of chronic respiratory failure on 2 L oxygen at home secondary to COPD and active smoker comes to our emergency department complaining of shortness of breath. Patient tells me her symptoms started about a week ago and has been progressing with shortness of breath, a little cough with no sputum, moderate to severe bilateral wheezing. Patient has had 4 breathing treatments before coming to the emergency department with no improvement. Tells me that her daughter was hearing her wheezing and asked her to come to the emergency department. Patient is currently on 2 L oxygen saturating 94%, she is not on respiratory distress but was up on arrival. Chest x-ray negative for acute infiltrates. Her last cigarette was yesterday morning. In the ED given several nebulizer treatments and IV steroids Patient improved but he still had a poor lung exam and was decided that need to be admitted for further management. Denies chest pain, nausea, vomiting, headache, cold-like symptoms, abdominal pain, changes on her urine or bowel movements. Past Medical History Cardiac Medical History: Reports: Congestive Heart Failure, Coronary Artery Disease, Hyperlipidema, Hypertension, Heart Murmur Pulmonary Medical History: Reports: Asthma, Bronchitis, Chronic Obstructive Pulmonary Disease (COPD), Pneumonia Denies: Tuberculosis GI Medical History: Denies: Cirrhosis, Crohn's Disease, Diverticulitis, Gastroesophageal Reflux Disease, Hepatitis, Hiatal Hernia Musculoskeltal Medical History: Reports: Gout Denies: Arthritis, Fibromyalgia Skin Medical History: Denies: Eczema, Psoriasis Psychiatric Medical History: Reports: Depression Traumatic Medical History: Denies: Gunshot Wound, Pneumothorax, Traumatic Brain Injury Hematology: Denies: Hemophilia, Sickle Cell Disease, Bleeding Tendencies Past Surgical History Past Surgical History: Reports: Section - x 4, Tubal Ligation Social History Lives with: Alone Smoking Status: Current Every Day Smoker Frequency of Alcohol Use: Rare Hx Recreational Drug Use: No Drugs: None Hx Prescription Drug Abuse: No Family History Family History: CVA, Hypertension, Other - diabetes Parental Family History Reviewed: Yes - As above Children Family History Reviewed: NA Sibling(s) Family History Reviewed.: NA Medication/Allergy Home Medications: Albuterol Sulfate [Proair HFA Inhalation Aerosol 8.5 gm MDI] 2 puff IH DAILY 06/06 Amlodipine Besylate [Norvasc 10 mg Tablet] 10 mg PO DAILY 05/26/18 Aspirin [Aspirin EC] 81 mg PO DAILY 05/26/18 Budesonide/Formoterol Fumarate [Symbicort 160-4.5 Mcg Inhaler] 2 puff IH Q12 06/06 Cyanocobalamin (Vitamin B-12) [Vitamin B-12 100 mcg Tablet] 100 mcg PO DAILY 06/06 Ferrous Sulfate [Feosol 325 mg Tablet] 325 mg PO DAILY 05/26/18 Gabapentin [Neurontin 400 mg Capsule] 400 mg PO Q12 05/26/18 Hydralazine HCl [Apresoline 50 mg Tablet] 100 mg PO Q12 05/26/18 Lisinopril [Prinivil 5 mg Tablet] 5 mg PO DAILY 05/26/18 Tiotropium [place] [Spiriva Handihaler 5 Cap/Kit (18 Mcg/Cap)] 1 cap IH DAILY Tramadol HCl [Ultram 50 mg Tablet] 50 mg PO Q12HP PRN 05/26/18 Metoprolol Succinate [Toprol Xl 25 mg Tab.sr] 25 mg PO Q12 #60 tab.sr.24h Fluticasone Propionate [Flonase Nasal [place] 50 Mcg/[place] 16 gm] 1 spray NAREB DAILY 07/26/18 Furosemide [Lasix 40 mg Tablet] 80 mg PO DAILY 07/26/18 Acetaminophen [Tylenol 325 mg Tablet] 650 mg PO Q6HP PRN tablet 07/31/18 Levofloxacin [Levaquin 250 mg Tablet] 250 mg PO DAILY 2 Days #2 tablet 07/31/18 Prednisone 20 mg PO BID #8 tablet 07/31/18 Allergies/Adverse Reactions: No Known Allergies Allergy (Verified 07/26/18 09:38) Review of Systems Review of Systems: As outlined above, others negative Physical Exam Vital Signs: Temp Pulse Resp BP Pulse Ox 98.7 F 26 H 184/85 H 95 09/07/18 02:01 09/07/18 04:01 09/07/18 04:01 09/07/18 04:01 Additional comments: General appearance: Well-developed, well-nourished, alert and cooperative, and appears to be in no acute distress, on nasal cannula Head: Normocephalic Eyes: PEERL, EOMI, vision is grossly intact. Ears: External auditory canal and tympanic membranes clear, hearing grossly intact. Nose: No nasal discharge. Throat: Oral cavity and pharynx normal. No inflammation, swelling, exudate or lesions. Neck: Neck supple, nontender without lymphadenopathy, masses or thyromegaly. Cardiac: Normal S1 and S2. No S3, S4 or murmurs. Rhythm is regular. There is no peripheral edema, cyanosis or pallor. Extremities are warm and well perfused. Capillary refill is less than 2 seconds. No carotid bruits. Lungs: Bilateral moderate to severe wheezing, diffuse crackles, mild rhonchi. Not using accessory muscles. Abdomen: Positive bowel sounds. Soft. Nondistended, nontender. No guarding or rebound. No masses. No hepatosplenomegaly Extremities: No significant deformity or joint abnormality. No edema. Peripheral pulses intact. No varicosities. Neurological: Cranial nerves II through XII grossly intact. Strength and sensation symmetric and intact throughout. Reflexes 2+ throughout. Skin: Skin normal color, texture and turgor with no lesions or eruptions, warm and dry. Psychiatric: The mental examination revealed the patient was oriented to person , place, and time. The patient was able to demonstrate good judgment on recent , without hallucinations, abnormal affect or abnormal behaviors. Results Laboratory Results: 09/06/18 09/06/18 09/06/18 23:56 23:56 23:56 WBC 10.4 RBC 3.35 L Hgb 9.8 L Hct 29.6 L MCV 88 MCH 29.1 MCHC 33.0 RDW 13.7 Plt Count 287 Seg Neutrophils % 66.1 Lymphocytes % 22.8 Monocytes % 7.0 Eosinophils % 3.3 Basophils % 0.8 Absolute Neutrophils 6.9 Absolute Lymphocytes 2.4 Absolute Monocytes 0.7 Absolute Eosinophils 0.3 Absolute Basophils 0.1 Sodium 144.0 Potassium 4.2 Chloride 108 H Carbon Dioxide 24 Anion Gap 12 BUN 39 H Creatinine 2.44 H Est GFR ( Amer) 24 L Est GFR (Non-Af Amer) 20 L Glucose 91 Calcium 10.0 Total Bilirubin 0.4 Direct Bilirubin 0.3 AST 21 ALT 15 Alkaline Phosphatase 135 H Troponin I 0.045 NT-Pro-B Natriuret Pep Total Protein 7.2 Albumin 3.9 09/06/18 23:56 WBC RBC Hgb Hct MCV MCH MCHC RDW Plt Count Seg Neutrophils % Lymphocytes % Monocytes % Eosinophils % Basophils % Absolute Neutrophils Absolute Lymphocytes Absolute Monocytes Absolute Eosinophils Absolute Basophils Sodium Potassium Chloride Carbon Dioxide Anion Gap BUN Creatinine Est GFR ( Amer) Est GFR (Non-Af Amer) Glucose Calcium Total Bilirubin Direct Bilirubin AST ALT Alkaline Phosphatase Troponin I NT-Pro-B Natriuret Pep 1510 H Total Protein Albumin Impressions: Chest X-Ray 09/06/18 23:53 IMPRESSION: 1. No evidence of acute intrathoracic disease. 2. Prominence of the cardiac silhouette as described above. Assessment & Plan - Diagnosis (1) Acute exacerbation of chronic obstructive pulmonary disease (COPD) Is this a current diagnosis for this admission?: Yes Plan: Patient comes with progressive respiratory symptoms, has a long history of COPD exacerbations. We will keep the patient under telemetry monitoring, oxygen protocol via nasal cannula with RT evaluation. Solu-Medrol 60 mg every 8 hours. IV azithromycin. Incentive spirometry. Sputum culture. Currently comfortable on 2 L nasal cannula saturating 96-97% Chest x-ray does not show any acute infiltrates (2) CKD (chronic kidney disease), stage IV Is this a current diagnosis for this admission?: Yes Plan: Stable (3) Severe obesity (BMI 35.0-39.9) with comorbidity Is this a current diagnosis for this admission?: Yes Plan: Lifestyle modifications (4) Chronic diastolic heart failure Is this a current diagnosis for this admission?: Yes Plan: Seems to be compensated, continue with home Lasix. (5) Chronic respiratory failure Qualifiers: Respiratory failure complication: hypoxia Qualified Code(s): J96.11 - Chronic respiratory failure with hypoxia Is this a current diagnosis for this admission?: Yes Plan: Patient is in 2 L oxygen at home secondary to COPD (6) Coronary artery disease Qualifiers: Coronary Disease-Associated Artery/Lesion type: [place] artery Is this a current diagnosis for this admission?: Yes Plan: Patient denies having any cardiac symptoms, continue with aspirin. (7) Hypertension Qualifiers: Hypertension type: essential hypertension Qualified Code(s): I10 - Essential (primary) hypertension Is this a current diagnosis for this admission?: Yes Plan: Blood pressure is uncontrolled, BP 160/85, will resume her home antihypertensive medications and place her on IV Lopressor as needed (8) Tobacco abuse Is this a current diagnosis for this admission?: Yes Plan: Will give nicotine patch if needed - Inpatient Certification Based on my medical assessment, after consideration of the patient's comorbidities, presenting symptoms, or acuity I expect that the services needed warrant INPATIENT care.: Yes I certify that my determination is in accordance with my understanding of Medicare's requirements for reasonable and necessary INPATIENT services [42 CFR 412.3e].: Yes Medical Necessity: Risk of Complication if Not Cared For in Hospital
[2018-09-07] MEDS ORDERED: AZITHROMYCIN 500 MG in DEXTROSE 5%-WATER 250 ML IV SCH ×2 (06:00→10:00)
[2018-09-07] MEDS: HEPARIN SOD (PORCINE) 5,000 UNIT/ML 1 ML SYRINGE SUBCUT SCH ×3 (07:01→22:25)
--- NOTE | 2018-09-07 08:05 | EKG REPORT ---
SEVERITY:- ABNORMAL ECG - SINUS RHYTHM NONSPECIFIC INTRAVENTRICULAR CONDUCTION DELAY LEFT VENTRICULAR HYPERTROPHY : Confirmed by: Everardo Parson MD 07-Sep-2018 08:04:28
[2018-09-07] MEDS: METHYLPREDNISOLONE INJ 125 MG/2 ML SDV IV SCH ×2 (09:42→17:51)
--- NOTE | 2018-09-07 18:25 | PDOC PROGRESS REPORT ---
Subjective Progress Note for:: 09/07/18 Subjective:: BOOM TODD is a 62 year old female who presented to the emergency room with a one-week history of worsening dyspnea and wheezing. She admits that her symptoms began a week or so prior to her presentation with gradually worsening of her shortness of breath and a mild nonproductive cough as well as mild wheezing which has progressed to become severe. Her dyspnea has also progressed to become severe despite using 4 nebulizer therapy treatments before coming to the emergency room. She has a history of chronic COPD with chronic hypoxic respiratory failure treated with oxygen at 2 L/min via nasal cannula at home. She continues to smoke cigarettes despite being advised against smoking and being instructed in the dangers of smoking with oxygen use. She admits to numerous prior similar episodes in the past due to exacerbations of her COPD. She admits that her dyspnea and wheezing worsen with activity and usually are improved by using her nebulizer treatments. In the emergency room she was given multiple nebulizer therapy treatments and IV Solu-Medrol. Her chest x- ray was negative and her WBC was normal. She was subsequently admitted to the hospitalist service for further care. Reason For Visit: COPD EXACERBATION Physical Exam Vital Signs: Temp Pulse Resp BP Pulse Ox 97.3 F 95 18 182/85 H 94 09/07/18 11:56 09/07/18 15:47 09/07/18 15:47 09/07/18 11:56 09/07/18 15:47 Intake & Output 09/05/18 09/06/18 09/07/18 23:59 23:59 23:59 Intake Total 462 Balance 462 Weight 113.6 kg General appearance: PRESENT: no acute distress, cooperative Head exam: PRESENT: atraumatic, normocephalic Eye exam: ABSENT: conjunctival injection, scleral icterus Mouth exam: PRESENT: neck supple Respiratory exam: PRESENT: prolonged expiratory phas, symmetrical, wheezes Cardiovascular exam: PRESENT: RRR. ABSENT: clicks, gallop, rubs Vascular exam: PRESENT: normal capillary refill. ABSENT: pallor GI/Abdominal exam: PRESENT: normal bowel sounds, soft Rectal exam: PRESENT: deferred Extremities exam: ABSENT: joint swelling, pedal edema Musculoskeletal exam: PRESENT: full ROM, normal inspection. ABSENT: tenderness Neurological exam: PRESENT: alert, oriented to person, oriented to place, oriented to time, oriented to situation, CN II-XII grossly intact. ABSENT: motor sensory deficit Psychiatric exam: PRESENT: appropriate affect, normal mood Skin exam: ABSENT: jaundice, rash, urticaria Results Impressions: Chest X-Ray 09/06/18 23:53 IMPRESSION: 1. No evidence of acute intrathoracic disease. 2. Prominence of the cardiac silhouette as described above. Assessment & Plan - Diagnosis (1) Acute exacerbation of chronic obstructive pulmonary disease (COPD) Is this a current diagnosis for this admission?: Yes (2) Chronic diastolic heart failure Is this a current diagnosis for this admission?: Yes Plan: Patient will be managed with an aggressive pulmonary toilet, IV steroids and supplemental oxygen. Medications used will be Xopenex 1.25 mg via nebulizer every 8 hours, ipratropium nebulizer every 8 hours, Pulmicort 0.5 mg nebulizer every 12 hours and Solu-Medrol 40 mg IV every 8 hours. (3) Chronic renal insufficiency Qualifiers: Chronic kidney disease stage: stage 4 (severe) Qualified Code(s): N18.4 - Chronic kidney disease, stage 4 (severe) Is this a current diagnosis for this admission?: Yes Plan: Patient's creatinine was noted to be 2.4 and her BUN was 39 on admission this is consistent with stable chronic renal insufficiency stage IIIb. This will be taken into consideration for all dosing of medications and other treatments during her hospital course. (4) Chronic respiratory failure Qualifiers: Respiratory failure complication: hypoxia Qualified Code(s): J96.11 - Chronic respiratory failure with hypoxia Is this a current diagnosis for this admission?: Yes Plan: Ms. Dillon chronic respiratory failure will be managed with nebulizer therapy, supplemental oxygen and use of a long-acting beta agonist if possible for her long-term care (covered by her insurance?). (5) Coronary artery disease Qualifiers: Coronary Disease-Associated Artery/Lesion type: [place] artery Is this a current diagnosis for this admission?: Yes Plan: Patient has a history of coronary artery disease which is stable at this time on her current home medications. These medications will be continued during her hospital course as appropriate. (6) Hypertension Qualifiers: Hypertension type: essential hypertension Qualified Code(s): I10 - Essential (primary) hypertension Is this a current diagnosis for this admission?: Yes Plan: Ms. Dillon blood pressure is poorly controlled at the present time and will be treated by continuation of her current home regimen with medication adjustments. (7) Tobacco abuse Is this a current diagnosis for this admission?: Yes Plan: Cessation of tobacco use is advised and counseling is given, the patient has no interest in discontinuing tobacco use. - Time Time Spent with patient: 35 or more minutes
[2018-09-07] MEDS ORDERED: METHYLPREDNISOLONE INJ 125 MG/2 ML SDV IV SCH (18:39)
[2018-09-07] MEDS ORDERED: LISINOPRIL 5 MG TABLET PO SCH (18:45)
[2018-09-07] MEDS: BUDESONIDE NEB 0.5 MG/2 ML AMPUL NEB SCH (20:02)
[2018-09-07] MEDS: LEVALBUTEROL HCL NEB 1.25 MG/3 ML AMPUL NEB SCH ×2 (20:07→23:30)
[2018-09-07] MEDS: IPRATROPIUM BROMIDE 0.02% NEB 0.5 MG/2.5 ML AMPUL NEB SCH ×2 (20:07→23:30)
[2018-09-07] MEDS: FLUTICASONE NASAL SPRAY 50 MCG/SPRY 120 SPRAY/16 GM NASL SCH (22:26)
[2018-09-07] MEDS: AMLODIPINE BESYLATE 10 MG TABLET PO SCH (22:27)
[2018-09-07] MEDS: METOPROLOL SUCCINATE 25 MG TAB.SR.24H PO SCH ×3 (22:27→22:30)
[2018-09-08 05:44] LABS: HEMOGLOBIN 8.5 g/dL (12.0-15.5); RED BLOOD COUNT 2.97 10^6/uL (3.72-5.28); WHITE BLOOD COUNT 12.6 10^3/uL (4.0-10.5)
[2018-09-08 05:45] LABS: MEAN CORPUSCULAR HEMOGLOBIN 28.6 pg (27.0-33.4); MEAN CORPUSCULAR HGB CONC 32.6 g/dL (32.0-36.0); MEAN CORPUSCULAR VOLUME 88 fl (80-97); PLATELET COUNT 255 10^3/uL (150-450); RED CELL DISTRIBUTION WIDTH 13.6 % (11.5-14.0)
[2018-09-08 05:48] LABS: ARTERIAL BLOOD BASE EXCESS -0.5 mmol/L; ARTERIAL BLOOD FIO2 2L; ARTERIAL BLOOD H2CO3 1.32 mmol/L (1.05-1.35); ARTERIAL BLOOD HCO3 24.8 mmol/L (20-24); ARTERIAL BLOOD O2 SATURATION 96.6 % (94-98); ARTERIAL BLOOD PCO2 43.8 mmHg (35-45); ARTERIAL BLOOD PH 7.37 (7.35-7.45); ARTERIAL BLOOD PO2 89.2 mmHg (80-100); ARTERIAL BLOOD TOTAL CO2 26.2 mmol/L (21-25)
[2018-09-08] MEDS: HEPARIN SOD (PORCINE) 5,000 UNIT/ML 1 ML SYRINGE SUBCUT SCH ×3 (06:03→21:39)
[2018-09-08 06:05] LABS: ANION GAP 14 (5-19); BLOOD UREA NITROGEN 57 mg/dL (7-20); CALCIUM 9.4 mg/dL (8.4-10.2); CARBON DIOXIDE 23 mmol/L (22-30); CHLORIDE 99 mmol/L (98-107); GLUCOSE 126 mg/dL (75-110); POTASSIUM 4.3 mmol/L (3.6-5.0); SODIUM 135.8 mmol/L (137-145)
[2018-09-08] MEDS: LEVALBUTEROL HCL NEB 1.25 MG/3 ML AMPUL NEB SCH ×3 (08:39→23:37)
[2018-09-08] MEDS: IPRATROPIUM BROMIDE 0.02% NEB 0.5 MG/2.5 ML AMPUL NEB SCH (08:39)
[2018-09-08] MEDS: BUDESONIDE NEB 0.5 MG/2 ML AMPUL NEB SCH ×2 (08:39→20:26)
[2018-09-08] MEDS ORDERED: LEVOTHYROXINE SODIUM 0.1 MG TABLET PO SCH (08:45)
[2018-09-08 09:18] LABS: FREE T3 1.97 pg/mL (2.77-5.27); FREE T4 (FREE THYROXINE) 0.85 ng/dL (0.78-2.19)
[2018-09-08 09:32] LABS: THYROID STIMULATING HORMONE 0.22 uIU/mL (0.47-4.68)
[2018-09-08] MEDS: AZITHROMYCIN 250 MG TABLET PO SCH (09:52)
[2018-09-08] MEDS: TORSEMIDE 20 MG TABLET PO SCH (09:53)
[2018-09-08] MEDS: ASPIRIN 81 MG TABLET, ENT COATED PO SCH (09:54)
[2018-09-08] MEDS: FERROUS SULFATE 325 MG TABLET PO SCH (09:55)
[2018-09-08] MEDS: AMLODIPINE BESYLATE 10 MG TABLET PO SCH (09:56)
[2018-09-08] MEDS: FLUTICASONE NASAL SPRAY 50 MCG/SPRY 120 SPRAY/16 GM NASL SCH ×2 (09:56→21:39)
[2018-09-08] MEDS: TIOTROPIUM BROMIDE DPI 5 CAP/KIT (18 MCG/CAP) IH SCH (09:57)
[2018-09-08] MEDS ORDERED: (PENDING PHARMACY ID) (Cyanocobalamin (Vitamin B-12) [Vitamin B-12] 100 MCG) PO SCH (10:00)
[2018-09-08] MEDS ORDERED: TORSEMIDE 20 MG TABLET PO SCH (10:00)
[2018-09-08] MEDS ORDERED: LOSARTAN POTASSIUM 25 MG TABLET PO SCH (10:00)
[2018-09-08] MEDS ORDERED: METOPROLOL SUCCINATE 50 MG TAB.SR.24H PO SCH (10:00)
[2018-09-08] MEDS ORDERED: LEVOTHYROXINE SODIUM 0.1 MG TABLET PO ONE (11:00)
[2018-09-08] MEDS: METHYLPREDNISOLONE INJ 40 MG/1 ML SDV IV SCH ×2 (13:49→21:39)
[2018-09-08] MEDS: HYDRALAZINE HCL INJ/PF 20 MG/1 ML SDV IV PRN (18:17)
--- NOTE | 2018-09-08 19:28 | PDOC PROGRESS REPORT ---
Subjective Progress Note for:: 09/08/18 Subjective:: BOOM KELLY is a 62 year old female who presented to the emergency room with a one-week history of worsening dyspnea and wheezing. She admits that her symptoms began a week or so prior to her presentation with gradually worsening of her shortness of breath and a mild nonproductive cough as well as mild wheezing which has progressed to become severe. Her dyspnea has also progressed to become severe despite using 4 nebulizer therapy treatments before coming to the emergency room. She has a history of chronic COPD with chronic hypoxic respiratory failure treated with oxygen at 2 L/min via nasal cannula at home. She continues to smoke cigarettes despite being advised against smoking and being instructed in the dangers of smoking with oxygen use. She admits to numerous prior similar episodes in the past due to exacerbations of her COPD. She admits that her dyspnea and wheezing worsen with activity and usually are improved by using her nebulizer treatments. In the emergency room she was given multiple nebulizer therapy treatments and IV Solu-Medrol. Her chest x- ray was negative and her WBC was normal. She was subsequently admitted to the hospitalist service for further care. 09/08/18: Ms. Kelly states she feels considerably better today with less wheezing and less dyspnea. She has been able to eat and drink without any shortness of breath and has been up to the bathroom without dyspnea. She states she feels like she is improving at her usual rate when she has these types of episodes and winds up in the hospital. She offers that she will probably be ready to go home tomorrow or Monday. On exam today her chest is improved versus yesterday' s evaluation with significantly improved air movement and less wheezing and a significantly improved expiratory phase. Her current regiment will be continued and she will be reassessed tomorrow. Reason For Visit: COPD EXACERBATION Physical Exam Vital Signs: Temp Pulse Resp BP Pulse Ox 98.4 F 76 16 172/84 H 98 09/08/18 16:00 09/08/18 16:32 09/08/18 16:32 09/08/18 16:00 09/08/18 16:32 Intake & Output 09/06/18 09/07/18 09/08/18 23:59 23:59 23:59 Intake Total 964 2858 Balance 964 2858 Weight 113.6 kg 115.9 kg General appearance: PRESENT: no acute distress, cooperative Head exam: PRESENT: atraumatic, normocephalic Eye exam: ABSENT: conjunctival injection, scleral icterus Ear exam: PRESENT: normal external ear exam. ABSENT: bleeding Mouth exam: PRESENT: neck supple, tongue midline Neck exam: ABSENT: thyromegaly, tracheal deviation Respiratory exam: PRESENT: decreased breath sounds - Mildly decreased breath sounds throughout the chest, prolonged expiratory phas - Minimally prolonged expiratory phase, symmetrical, unlabored, wheezes - Mild end expiratory wheezing. ABSENT: rales, rhonchi Cardiovascular exam: PRESENT: RRR. ABSENT: clicks, gallop, rubs Vascular exam: PRESENT: normal capillary refill. ABSENT: pallor GI/Abdominal exam: PRESENT: normal bowel sounds, soft Rectal exam: PRESENT: deferred Extremities exam: ABSENT: joint swelling, pedal edema Musculoskeletal exam: PRESENT: full ROM, normal inspection Neurological exam: PRESENT: alert, oriented to person, oriented to place, oriented to time, oriented to situation, CN II-XII grossly intact. ABSENT: motor sensory deficit - [id number] Psychiatric exam: PRESENT: appropriate affect, normal mood Skin exam: ABSENT: jaundice, rash, urticaria Results Laboratory Results: 09/08/18 04:39 09/08/18 04:39 09/08/18 09/08/18 09/08/18 04:39 04:39 04:39 WBC 12.6 H RBC 2.97 L Hgb 8.5 L Hct 26.0 L MCV 88 MCH 28.6 MCHC 32.6 RDW 13.6 Plt Count 255 Carbonic Acid HCO3/H2CO3 Ratio ABG pH ABG pCO2 ABG pO2 ABG HCO3 ABG O2 Saturation ABG Base Excess FiO2 Sodium 135.8 L Potassium 4.3 Chloride 99 Carbon Dioxide 23 Anion Gap 14 BUN 57 H Creatinine 2.33 H Est GFR ( Amer) 26 L Est GFR (Non-Af Amer) 21 L Glucose 126 H Calcium 9.4 Magnesium 1.8 TSH 0.22 L Free T4 0.85 Free T3 pg/mL 1.97 L 09/08/18 05:40 WBC RBC Hgb Hct MCV MCH MCHC RDW Plt Count Carbonic Acid 1.32 HCO3/H2CO3 Ratio 18:1 ABG pH 7.37 ABG pCO2 43.8 ABG pO2 89.2 ABG HCO3 24.8 H ABG O2 Saturation 96.6 ABG Base Excess -0.5 FiO2 2L Sodium Potassium Chloride Carbon Dioxide Anion Gap BUN Creatinine Est GFR ( Amer) Est GFR (Non-Af Amer) Glucose Calcium Magnesium TSH Free T4 Free T3 pg/mL Impressions: Chest X-Ray 09/06/18 23:53 IMPRESSION: 1. No evidence of acute intrathoracic disease. 2. Prominence of the cardiac silhouette as described above. Assessment & Plan - Diagnosis (1) Acute exacerbation of chronic obstructive pulmonary disease (COPD) Is this a current diagnosis for this admission?: Yes Plan: Patient will be managed with an aggressive pulmonary toilet, IV steroids and supplemental oxygen. Medications used will be Xopenex 1.25 mg via nebulizer every 8 hours, ipratropium nebulizer every 8 hours, Pulmicort 0.5 mg nebulizer every 12 hours and Solu-Medrol 40 mg IV every 8 hours. (2) Chronic diastolic heart failure Is this a current diagnosis for this admission?: Yes Plan: Patient's regiment will be modified and adjusted in addition to her antihypertensive medications to provide adequate control for her diastolic heart failure as well as her hypertension. (3) Chronic renal insufficiency Qualifiers: Chronic kidney disease stage: stage 4 (severe) Qualified Code(s): N18.4 - Chronic kidney disease, stage 4 (severe) Is this a current diagnosis for this admission?: Yes Plan: Patient's creatinine was noted to be 2.4 and her BUN was 39 on admission this is consistent with stable chronic renal insufficiency stage IIIb. This will be taken into consideration for all dosing of medications and other treatments during her hospital course. (4) Chronic respiratory failure Qualifiers: Respiratory failure complication: hypoxia Qualified Code(s): J96.11 - Chronic respiratory failure with hypoxia Is this a current diagnosis for this admission?: Yes Plan: Ms. Kelly's chronic respiratory failure will be managed with nebulizer therapy, supplemental oxygen and use of a long-acting beta agonist if possible for her long-term care (covered by her insurance?). (5) Coronary artery disease Qualifiers: Coronary Disease-Associated Artery/Lesion type: [place] artery Is this a current diagnosis for this admission?: Yes Plan: Patient has a history of coronary artery disease which is stable at this time on her current home medications. These medications will be continued during her hospital course as appropriate. (6) Hypertension Qualifiers: Hypertension type: essential hypertension Qualified Code(s): I10 - Essential (primary) hypertension Is this a current diagnosis for this admission?: Yes Plan: Ms. Kelly's blood pressure is poorly controlled at the present time and will be treated by continuation of her current home regimen with medication adjustments. (7) Tobacco abuse Is this a current diagnosis for this admission?: Yes Plan: Cessation of tobacco use is advised and counseling is given, the patient has no interest in discontinuing tobacco use. - Time Time Spent with patient: 35 or more minutes Smoking Cessation Education: 3 to 10 minutes Medications reviewed and adjusted accordingly: Yes Anticipated discharge: Home Within: within 72 hours
[2018-09-08] MEDS ORDERED: METOPROLOL SUCCINATE 50 MG TAB.SR.24H PO ONE (19:45)
[2018-09-08] MEDS: GABAPENTIN 400 MG CAPSULE PO SCH (22:05)
[2018-09-09] MEDS: HEPARIN SOD (PORCINE) 5,000 UNIT/ML 1 ML SYRINGE SUBCUT SCH ×3 (05:13→22:32)
[2018-09-09] MEDS: HYDRALAZINE HCL INJ/PF 20 MG/1 ML SDV IV PRN ×4 (05:13→22:52)
[2018-09-09] MEDS: METHYLPREDNISOLONE INJ 40 MG/1 ML SDV IV SCH ×2 (05:15→14:22)
[2018-09-09 05:33] LABS: HEMATOCRIT 26.3 % (36.0-47.0); HEMOGLOBIN 8.8 g/dL (12.0-15.5); MEAN CORPUSCULAR HEMOGLOBIN 29.1 pg (27.0-33.4); MEAN CORPUSCULAR HGB CONC 33.5 g/dL (32.0-36.0); MEAN CORPUSCULAR VOLUME 87 fl (80-97); PLATELET COUNT 265 10^3/uL (150-450); RED BLOOD COUNT 3.02 10^6/uL (3.72-5.28); RED CELL DISTRIBUTION WIDTH 13.5 % (11.5-14.0)
[2018-09-09 05:58] LABS: ANION GAP 11 (5-19); BLOOD UREA NITROGEN 63 mg/dL (7-20); CALCIUM 9.2 mg/dL (8.4-10.2); CARBON DIOXIDE 25 mmol/L (22-30); CHLORIDE 101 mmol/L (98-107); GLUCOSE 125 mg/dL (75-110); POTASSIUM 4.5 mmol/L (3.6-5.0); SODIUM 137.3 mmol/L (137-145)
[2018-09-09] MEDS: LEVALBUTEROL HCL NEB 1.25 MG/3 ML AMPUL NEB SCH ×2 (08:40→16:01)
[2018-09-09] MEDS: BUDESONIDE NEB 0.5 MG/2 ML AMPUL NEB SCH ×2 (08:40→16:01)
[2018-09-09] MEDS: LOSARTAN POTASSIUM 25 MG TABLET PO SCH (09:35)
[2018-09-09] MEDS: GABAPENTIN 400 MG CAPSULE PO SCH ×2 (09:36→22:32)
[2018-09-09] MEDS: ASPIRIN 81 MG TABLET, ENT COATED PO SCH (09:36)
[2018-09-09] MEDS: FERROUS SULFATE 325 MG TABLET PO SCH (09:36)
[2018-09-09] MEDS: FLUTICASONE NASAL SPRAY 50 MCG/SPRY 120 SPRAY/16 GM NASL SCH ×2 (09:36→22:31)
[2018-09-09] MEDS: AMLODIPINE BESYLATE 10 MG TABLET PO SCH (09:36)
[2018-09-09] MEDS: AZITHROMYCIN 250 MG TABLET PO SCH (09:36)
[2018-09-09] MEDS: METOPROLOL SUCCINATE 50 MG TAB.SR.24H PO SCH (09:36)
[2018-09-09] MEDS: TIOTROPIUM BROMIDE DPI 5 CAP/KIT (18 MCG/CAP) IH SCH (09:37)
[2018-09-09] MEDS: TORSEMIDE 20 MG TABLET PO SCH (09:37)
[2018-09-09] MEDS ORDERED: NICOTINE 21 MG/24 HR PATCH.TD24 TD PRN (15:05)
--- NOTE | 2018-09-09 15:10 | PDOC PROGRESS REPORT ---
Subjective Progress Note for:: 09/09/18 Subjective:: BOOM KELLY is a 62 year old female who presented to the emergency room with a one-week history of worsening dyspnea and wheezing. She admits that her symptoms began a week or so prior to her presentation with gradually worsening of her shortness of breath and a mild nonproductive cough as well as mild wheezing which has progressed to become severe. Her dyspnea has also progressed to become severe despite using 4 nebulizer therapy treatments before coming to the emergency room. She has a history of chronic COPD with chronic hypoxic respiratory failure treated with oxygen at 2 L/min via nasal cannula at home. She continues to smoke cigarettes despite being advised against smoking and being instructed in the dangers of smoking with oxygen use. She admits to numerous prior similar episodes in the past due to exacerbations of her COPD. She admits that her dyspnea and wheezing worsen with activity and usually are improved by using her nebulizer treatments. In the emergency room she was given multiple nebulizer therapy treatments and IV Solu-Medrol. Her chest x- ray was negative and her WBC was normal. She was subsequently admitted to the hospitalist service for further care. 09/08/18: Ms. Kelly states she feels considerably better today with less wheezing and less dyspnea. She has been able to eat and drink without any shortness of breath and has been up to the bathroom without dyspnea. She states she feels like she is improving at her usual rate when she has these types of episodes and winds up in the hospital. She offers that she will probably be ready to go home tomorrow or Monday. On exam today her chest is improved versus yesterday' s evaluation with significantly improved air movement and less wheezing and a significantly improved expiratory phase. Her current regiment will be continued and she will be reassessed tomorrow. 09/09/18: Ms. Kelly again states that she feels improved day over day. She is breathing well without wheezing or dyspnea at rest and has noted minimal wheezing and no dyspnea with mild exertion. She is able to carry on a conversation comfortably and has no respiratory difficulty with eating or drinking. On exam she is significantly improved again over her previous evaluation with good air movement in all tan and significantly decreased wheezing. Her expiratory phase is normalized and there are no rales or rhonchi present. We have discussed the possibility of discharge today but she feels that she would like to stay until tomorrow if possible to gain further improvement. I expressed to her that I feel that her status would be marginal for discharge today but I would be very hopeful that will be significantly improved for discharge tomorrow. Reason For Visit: COPD EXACERBATION Physical Exam Vital Signs: Temp Pulse Resp BP Pulse Ox 97.3 F 68 18 164/78 H 97 09/09/18 12:00 09/09/18 12:00 09/09/18 12:00 09/09/18 12:00 09/09/18 12:00 Intake & Output 09/07/18 09/08/18 09/09/18 23:59 23:59 23:59 Intake Total 964 2858 999 Balance 964 2858 999 Weight 113.6 kg 115.9 kg 117.4 kg General appearance: PRESENT: no acute distress, cooperative, morbidly obese - [id number] Head exam: PRESENT: atraumatic, normocephalic Eye exam: PRESENT: conjunctiva pink. ABSENT: conjunctival injection, scleral icterus Ear exam: PRESENT: normal external ear exam. ABSENT: drainage Mouth exam: PRESENT: neck supple, tongue midline Neck exam: ABSENT: thyromegaly, tracheal deviation Respiratory exam: PRESENT: symmetrical, unlabored, wheezes - Mild wheezes in all tan. ABSENT: decreased breath sounds, prolonged expiratory phas, rales, rhonchi, tachypnea Cardiovascular exam: PRESENT: RRR. ABSENT: clicks, gallop, rubs Vascular exam: PRESENT: normal capillary refill. ABSENT: pallor GI/Abdominal exam: PRESENT: normal bowel sounds, soft Rectal exam: PRESENT: deferred Extremities exam: ABSENT: joint swelling, pedal edema Musculoskeletal exam: PRESENT: full ROM, normal inspection Neurological exam: PRESENT: alert, oriented to person, oriented to place, oriented to time, oriented to situation, CN II-XII grossly intact. ABSENT: motor sensory deficit Psychiatric exam: PRESENT: appropriate affect, normal mood Skin exam: ABSENT: jaundice, rash, urticaria Results Laboratory Results: 09/09/18 04:47 09/09/18 04:47 09/09/18 09/09/18 04:47 04:47 WBC 14.0 H RBC 3.02 L Hgb 8.8 L Hct 26.3 L MCV 87 MCH 29.1 MCHC 33.5 RDW 13.5 Plt Count 265 Sodium 137.3 Potassium 4.5 Chloride 101 Carbon Dioxide 25 Anion Gap 11 BUN 63 H Creatinine 2.67 H Est GFR ( Amer) 22 L Est GFR (Non-Af Amer) 18 L Glucose 125 H Calcium 9.2 Magnesium 1.9 Impressions: Chest X-Ray 09/06/18 23:53 IMPRESSION: 1. No evidence of acute intrathoracic disease. 2. Prominence of the cardiac silhouette as described above. Assessment & Plan - Diagnosis (1) Acute exacerbation of chronic obstructive pulmonary disease (COPD) Is this a current diagnosis for this admission?: Yes Plan: Patient will be managed with an aggressive pulmonary toilet, IV steroids and supplemental oxygen. Medications used will be Xopenex 1.25 mg via nebulizer every 8 hours, ipratropium nebulizer every 8 hours, Pulmicort 0.5 mg nebulizer every 12 hours and Solu-Medrol 40 mg IV every 8 hours. 09/09/18: We will convert her to oral prednisone given in the morning and plan for her discharge tomorrow. Her nebulizer therapy will continue, and will be recommended for her home use, if it is covered by her insurance. (2) Chronic diastolic heart failure Is this a current diagnosis for this admission?: Yes Plan: Patient's regiment will be modified and adjusted in addition to her antihypertensive medications to provide adequate control for her diastolic heart failure as well as her hypertension. (3) Chronic renal insufficiency Qualifiers: Chronic kidney disease stage: stage 4 (severe) Qualified Code(s): N18.4 - Chronic kidney disease, stage 4 (severe) Is this a current diagnosis for this admission?: Yes Plan: Patient's creatinine was noted to be 2.4 and her BUN was 39 on admission this is consistent with stable chronic renal insufficiency stage IIIb. This will be taken into consideration for all dosing of medications and other treatments during her hospital course. (4) Chronic respiratory failure Qualifiers: Respiratory failure complication: hypoxia Qualified Code(s): J96.11 - Chronic respiratory failure with hypoxia Is this a current diagnosis for this admission?: Yes Plan: Ms. Kelly's chronic respiratory failure will be managed with nebulizer therapy, supplemental oxygen and use of a long-acting beta agonist if possible for her long-term care (covered by her insurance?). (5) Coronary artery disease Qualifiers: Coronary Disease-Associated Artery/Lesion type: [place] artery Is this a current diagnosis for this admission?: Yes Plan: Patient has a history of coronary artery disease which is stable at this time on her current home medications. These medications will be continued during her hospital course as appropriate. (6) Hypertension Qualifiers: Hypertension type: essential hypertension Qualified Code(s): I10 - Essential (primary) hypertension Is this a current diagnosis for this admission?: Yes Plan: Ms. Dillon blood pressure is poorly controlled at the present time and will be treated by continuation of her current home regimen with medication adjustments. (7) Tobacco abuse Is this a current diagnosis for this admission?: Yes Plan: Cessation of tobacco use is advised and counseling is given, the patient has no interest in discontinuing tobacco use. A nicotine patch will be available to her on a as needed basis should she so desire use it. - Time Time Spent with patient: 25-34 minutes Medications reviewed and adjusted accordingly: Yes Anticipated discharge: Home Within: within 24 hours
[2018-09-09] MEDS ORDERED: PREDNISONE 20 MG TABLET PO SCH ×2 (15:15→22:00)
[2018-09-10] MEDS: LEVALBUTEROL HCL NEB 1.25 MG/3 ML AMPUL NEB SCH ×2 (00:03→08:34)
[2018-09-10] MEDS: HEPARIN SOD (PORCINE) 5,000 UNIT/ML 1 ML SYRINGE SUBCUT SCH (05:05)
[2018-09-10 06:59] LABS: HEMATOCRIT 28.4 % (36.0-47.0); HEMOGLOBIN 9.2 g/dL (12.0-15.5); MEAN CORPUSCULAR HEMOGLOBIN 28.2 pg (27.0-33.4); MEAN CORPUSCULAR HGB CONC 32.3 g/dL (32.0-36.0); MEAN CORPUSCULAR VOLUME 87 fl (80-97); PLATELET COUNT 285 10^3/uL (150-450); RED BLOOD COUNT 3.25 10^6/uL (3.72-5.28); RED CELL DISTRIBUTION WIDTH 13.5 % (11.5-14.0); WHITE BLOOD COUNT 13.6 10^3/uL (4.0-10.5)
[2018-09-10 07:13] LABS: ANION GAP 11 (5-19); BLOOD UREA NITROGEN 74 mg/dL (7-20); CALCIUM 9.4 mg/dL (8.4-10.2); CARBON DIOXIDE 23 mmol/L (22-30); CHLORIDE 102 mmol/L (98-107); GLUCOSE 157 mg/dL (75-110); POTASSIUM 4.4 mmol/L (3.6-5.0); SODIUM 136.4 mmol/L (137-145)
[2018-09-10] MEDS: BUDESONIDE NEB 0.5 MG/2 ML AMPUL NEB SCH (08:34)
[2018-09-10] MEDS: LOSARTAN POTASSIUM 25 MG TABLET PO SCH (10:45)
[2018-09-10] MEDS: METOPROLOL SUCCINATE 50 MG TAB.SR.24H PO SCH (10:45)
[2018-09-10] MEDS: ASPIRIN 81 MG TABLET, ENT COATED PO SCH (10:46)
[2018-09-10] MEDS: FERROUS SULFATE 325 MG TABLET PO SCH (10:46)
[2018-09-10] MEDS: GABAPENTIN 400 MG CAPSULE PO SCH (10:46)
[2018-09-10] MEDS: AZITHROMYCIN 250 MG TABLET PO SCH (10:46)
[2018-09-10] MEDS: TORSEMIDE 20 MG TABLET PO SCH (10:50)
[2018-09-10] MEDS: TIOTROPIUM BROMIDE DPI 5 CAP/KIT (18 MCG/CAP) IH SCH (10:53)
[2018-09-10] MEDS: FLUTICASONE NASAL SPRAY 50 MCG/SPRY 120 SPRAY/16 GM NASL SCH (10:53)
[2018-09-10] MEDS: AMLODIPINE BESYLATE 10 MG TABLET PO SCH (10:57)
[2018-09-10 13:05] VITALS: BP 164/78
--- NOTE | 2018-09-10 18:26 | PDOC DISCHARGE SUMMARY ---
General - Admit/Disc Date/PCP Admission Date/Primary Care Provider: 09/07/18 02:53 WENCESLAO PEGUERO DO Discharge Date: 09/10/18 - Discharge Diagnosis (1) Acute exacerbation of chronic obstructive pulmonary disease (COPD) Is this a current diagnosis for this admission?: Yes Summary: Patient will be managed with an aggressive pulmonary toilet, IV steroids and supplemental oxygen. Medications used will be Xopenex 1.25 mg via nebulizer every 8 hours, ipratropium nebulizer every 8 hours, Pulmicort 0.5 mg nebulizer every 12 hours and Solu-Medrol 40 mg IV every 8 hours. 09/09/18: We will convert her to oral prednisone given in the morning and plan for her discharge tomorrow. Her nebulizer therapy will continue, and will be recommended for her home use, if it is covered by her insurance. (2) Chronic diastolic heart failure Is this a current diagnosis for this admission?: Yes Summary: Patient's regiment will be modified and adjusted in addition to her antihypertensive medications to provide adequate control for her diastolic heart failure as well as her hypertension. (3) Chronic renal insufficiency Is this a current diagnosis for this admission?: Yes Summary: Patient's creatinine was noted to be 2.4 and her BUN was 39 on admission this is consistent with stable chronic renal insufficiency stage IIIb. This will be taken into consideration for all dosing of medications and other treatments during her hospital course. (4) Chronic respiratory failure Is this a current diagnosis for this admission?: Yes Summary: Ms. Dillon chronic respiratory failure will be managed with nebulizer therapy, supplemental oxygen and use of a long-acting beta agonist if possible for her long-term care (covered by her insurance?). (5) Coronary artery disease Is this a current diagnosis for this admission?: Yes Summary: Patient has a history of coronary artery disease which is stable at this time on her current home medications. These medications will be continued during her hospital course as appropriate. (6) Hypertension Is this a current diagnosis for this admission?: Yes Summary: Ms. Dillon blood pressure is poorly controlled at the present time and will be treated by continuation of her current home regimen with medication adjustments. (7) Tobacco abuse Is this a current diagnosis for this admission?: Yes Summary: Cessation of tobacco use is advised and counseling is given, the patient has no interest in discontinuing tobacco use. A nicotine patch will be available to her on a as needed basis should she so desire use it. - Additional Information Discharge Diet: Cardiac Discharge Activity: Activity As Tolerated, Balance Activity w/Rest, Walk Frequently Prescriptions: Metoprolol Succinate 200 mg PO DAILY 30 Days #30 tab.er.24h Torsemide [Demadex 20 mg Tablet] 10 mg PO DAILY 30 Days #15 tablet Home Medications: Albuterol Sulfate [Proair HFA] 2 puff IH DAILY 09/07/18 Amlodipine Besylate [Norvasc 10 mg Tablet] 10 mg PO DAILY 09/07/18 Aspirin [Ecotrin 81 mg EC Tablet] 81 mg PO DAILY 09/07/18 Budesonide/Formoterol Fumarate [Symbicort 160-4.5 Mcg Inhaler] 2 puff IH Q12 Cyanocobalamin (Vitamin B-12) [Vitamin B-12] 100 mcg PO DAILY 09/07/18 Ferrous Sulfate [Feosol 325 mg Tablet] 325 mg PO DAILY 09/07/18 Fluticasone Propionate [Flonase Nasal [place] 50 Mcg/[place] 16 gm] 1 spray NASL Q12 09/07/18 Gabapentin [Neurontin 400 mg Capsule] 400 mg PO Q12 09/07/18 Lisinopril [Prinivil] 5 mg PO DAILY 09/07/18 Tiotropium Viola [Spiriva [place] 18 mcg/dose (30 Dose)] 1 cap IH DAILY Tramadol HCl [Ultram 50 mg Tablet] 50 mg PO Q12HP PRN 09/07/18 Metoprolol Succinate 200 mg PO DAILY 30 Days #30 tab.er.24h 09/10/18 Torsemide [Demadex 20 mg Tablet] 10 mg PO DAILY 30 Days #15 tablet 09/10/18 History of Present Illness Patient complains of: Dyspnea History of Present Illness: BOOM KELLY is a 62 year old female who presented to the emergency room with a one-week history of worsening dyspnea and wheezing. She admits that her symptoms began a week or so prior to her presentation with gradually worsening of her shortness of breath and a mild nonproductive cough as well as mild wheezing which has progressed to become severe. Her dyspnea has also progressed to become severe despite using 4 nebulizer therapy treatments before coming to the emergency room. She has a history of chronic COPD with chronic hypoxic respiratory failure treated with oxygen at 2 L/min via nasal cannula at home. She continues to smoke cigarettes despite being advised against smoking and being instructed in the dangers of smoking with oxygen use. She admits to numerous prior similar episodes in the past due to exacerbations of her COPD. She admits that her dyspnea and wheezing worsen with activity and usually are improved by using her nebulizer treatments. In the emergency room she was given multiple nebulizer therapy treatments and IV Solu-Medrol. Her chest x- ray was negative and her WBC was normal. She was subsequently admitted to the hospitalist service for further care. Hospital Course Hospital Course: 09/08/18: Ms. Kelly states she feels considerably better today with less wheezing and less dyspnea. She has been able to eat and drink without any shortness of breath and has been up to the bathroom without dyspnea. She states she feels like she is improving at her usual rate when she has these types of episodes and winds up in the hospital. She offers that she will probably be ready to go home tomorrow or Monday. On exam today her chest is improved versus yesterday' s evaluation with significantly improved air movement and less wheezing and a significantly improved expiratory phase. Her current regiment will be continued and she will be reassessed tomorrow. 09/09/18: Ms. Kelly again states that she feels improved day over day. She is breathing well without wheezing or dyspnea at rest and has noted minimal wheezing and no dyspnea with mild exertion. She is able to carry on a conversation comfortably and has no respiratory difficulty with eating or drinking. On exam she is significantly improved again over her previous evaluation with good air movement in all tan and significantly decreased wheezing. Her expiratory phase is normalized and there are no rales or rhonchi present. We have discussed the possibility of discharge today but she feels that she would like to stay until tomorrow if possible to gain further improvement. I expressed to her that I feel that her status would be marginal for discharge today but I would be very hopeful that will be significantly improved for discharge tomorrow. 09/10/18: Patient is doing very well again today and states he feels much better and thinks she will do well at home. She is breathing much more easily and is tolerating a significant amount of activity in her room and walking. She has oxygen at home but does not use CPAP, BiPAP or trilogy. She will follow-up with her primary care provider within 1-2 weeks and she will be discharged home today in improved and stable condition. Physical Exam Vital Signs: Temp Pulse Resp BP Pulse Ox 98.2 F 62 16 164/78 H 99 09/10/18 13:02 09/10/18 13:02 09/10/18 13:02 09/10/18 13:02 09/10/18 13:02 Intake & Output 09/08/18 09/09/18 09/10/18 23:59 23:59 23:59 Intake Total 2858 2182 624 Balance 2858 2182 624 Weight 115.9 kg 117.4 kg 116.3 kg General appearance: PRESENT: no acute distress, cooperative, morbidly obese Head exam: PRESENT: atraumatic, normocephalic Eye exam: ABSENT: conjunctival injection, scleral icterus Respiratory exam: PRESENT: symmetrical, unlabored, wheezes - Minimal end expiratory wheezes. ABSENT: prolonged expiratory phas, rales, rhonchi Cardiovascular exam: PRESENT: RRR. ABSENT: clicks, gallop, rubs Vascular exam: PRESENT: normal capillary refill. ABSENT: pallor Neurological exam: PRESENT: alert, oriented to person, oriented to place, oriented to time, oriented to situation Psychiatric exam: PRESENT: appropriate affect, normal mood Results Laboratory Results: 09/10/18 06:19 09/10/18 06:19 09/10/18 09/10/18 06:19 06:19 WBC 13.6 H RBC 3.25 L Hgb 9.2 L Hct 28.4 L MCV 87 MCH 28.2 MCHC 32.3 RDW 13.5 Plt Count 285 Sodium 136.4 L Potassium 4.4 Chloride 102 Carbon Dioxide 23 Anion Gap 11 BUN 74 H Creatinine 2.81 H Est GFR ( Amer) 21 L Est GFR (Non-Af Amer) 17 L Glucose 157 H Calcium 9.4 Magnesium 2.0 Impressions: Chest X-Ray 09/06/18 23:53 IMPRESSION: 1. No evidence of acute intrathoracic disease. 2. Prominence of the cardiac silhouette as described above. Qualifiers - * PATIENT BEING DISCHARGED WITH ANY OF THE FOLLOWING DIAGNOSIS: No Plan Discharge Plan: Discharged home in improved and stable condition Time Spent: Greater than 30 Minutes
== END 2018-09-10 13:24 | disposition home or self-care (01) | DRG 191 ==
LOC: ER 23:27 → EH 09-07 02:53 → 4S 09-07 05:04
PROVIDERS: ADMIT Internal Medicine; ATTEND Internal Medicine
PROC: 3E0234Z Introduction of Serum, Toxoid and Vaccine into Muscle, Percutaneous Approach (ICD-10-PCS; principal; 2018-09-10)
DX: J44.1 Chronic obstructive pulmonary disease with (acute) exacerbation (principal); I13.0 Hypertensive heart and chronic kidney disease with heart failure and stage 1 through stage 4 chronic kidney disease, or unspecified chronic kidney disease; N18.4 Chronic kidney disease, stage 4 (severe); I50.32 Chronic diastolic (congestive) heart failure; J96.11 Chronic respiratory failure with hypoxia; Z68.41 Body mass index [BMI] 40.0-44.9, adult; I25.10 Atherosclerotic heart disease of native coronary artery without angina pectoris; E78.5 Hyperlipidemia, unspecified; F32.9 Major depressive disorder, single episode, unspecified; E66.01 Morbid (severe) obesity due to excess calories; F17.210 Nicotine dependence, cigarettes, uncomplicated; Z99.81 Dependence on supplemental oxygen; Z23 Encounter for immunization; Z79.01 Long term (current) use of anticoagulants; Z79.82 Long term (current) use of aspirin; Z79.51 Long term (current) use of inhaled steroids; Z79.52 Long term (current) use of systemic steroids; Z79.899 Other long term (current) drug therapy
CPT/HCPCS: 36415; 71045; 80048; 80053; 82803; 83735; 83880; 84439; 84443; 84481; 84484; 85025; 85027; 90471; 90686; 93005; 93010; 94640; 94799; 96365; 96375; 99291; G0008; J0360; J0456; J1644; J2920; J2930; J3475; J3490; J7060; J7512; J7620

== ENCOUNTER 2018-10-10 17:10 | Inpatient (IN) | payer OTHER, MEDICARE, MEDICAID ==
[2018-10-10 17:33] LABS: ABSOLUTE BASOPHILS # (AUTO) 0.1 10^3/uL (0.0-0.2); ABSOLUTE EOSINOPHILS # (AUTO) 0.3 10^3/uL (0.0-0.6); ABSOLUTE LYMPHOCYTES (AUTO) 3.3 10^3/uL (0.5-4.7); ABSOLUTE MONOCYTES (AUTO) 0.6 10^3/uL (0.1-1.4); ABSOLUTE NEUT (AUTO) 6.9 10^3/uL (1.7-8.2); BASOPHILS % (AUTO) 0.6 % (0-2); EOSINOPHILS % (AUTO) 2.4 % (0-6); HEMATOCRIT 30.1 % (36.0-47.0); HEMOGLOBIN 9.9 g/dL (12.0-15.5); LYMPHOCYTES % (AUTO) 29.7 % (13-45); MEAN CORPUSCULAR HEMOGLOBIN 29.2 pg (27.0-33.4); MEAN CORPUSCULAR HGB CONC 32.7 g/dL (32.0-36.0); MEAN CORPUSCULAR VOLUME 89 fl (80-97); MONOCYTES % (AUTO) 5.6 % (3-13); PLATELET COUNT 343 10^3/uL (150-450); RED BLOOD COUNT 3.37 10^6/uL (3.72-5.28); RED CELL DISTRIBUTION WIDTH 14.4 % (11.5-14.0); SEGMENTED NEUTROPHILS % (AUTO) 61.7 % (42-78); TOTAL CELLS COUNTED % (AUTO) 100 %; WHITE BLOOD COUNT 11.2 10^3/uL (4.0-10.5)
[2018-10-10] MEDS ORDERED: METHYLPREDNISOLONE INJ 125 MG/2 ML SDV IV ONE (17:40)
[2018-10-10] MEDS ORDERED: IPRATROPIUM/ALBUTEROL 0.5-2.5 MG/3 ML AMPUL NEB ONE (17:41)
[2018-10-10] MEDS ORDERED: FUROSEMIDE INJ/PF 40 MG/4 ML SDV IV ONE (17:42)
[2018-10-10] MEDS ORDERED: LORAZEPAM INJ 2 MG/1 ML VIAL IV ONE (17:43)
--- NOTE | 2018-10-10 17:59 | RADIOLOGY REPORT (SQ) ---
EXAM DESCRIPTION: CHEST SINGLE VIEW COMPLETED DATE/TIME: 10/10/2018 5:33 pm REASON FOR STUDY: bed 8 db COMPARISON: 09/07/2018 EXAM PARAMETERS: NUMBER OF VIEWS: One view. TECHNIQUE: Single frontal radiographic view of the chest acquired. RADIATION DOSE: NA LIMITATIONS: None. FINDINGS: LUNGS AND PLEURA: No opacities, masses or pneumothorax. No pleural effusion. MEDIASTINUM AND HILAR STRUCTURES: No masses. Contour normal. HEART AND VASCULAR STRUCTURES: Heart size is borderline. No pulmonary edema. BONES: No acute findings. HARDWARE: None in the chest. OTHER: No other significant finding. IMPRESSION: Borderline cardiomegaly without vinod pulmonary edema. TECHNICAL DOCUMENTATION: JOB ID: [id number] [employer]- All Rights Reserved Reading location - IP/workstation name: [email or web address]
[2018-10-10 18:07] LABS: CREATINE KINASE MB 3.31 ng/mL (<4.55)
[2018-10-10 18:10] LABS: TROPONIN I 0.056 ng/mL
[2018-10-10 18:15] LABS: ALANINE AMINOTRANSFERASE 12 U/L (9-52); ALKALINE PHOSPHATASE 135 U/L (38-126); ANION GAP 15 (5-19); ASPARTATE AMINO TRANSFERASE 31 U/L (14-36); BILIRUBIN,DIRECT 0.5 mg/dL (0.0-0.4); BILIRUBIN,TOTAL 0.5 mg/dL (0.2-1.3); BLOOD UREA NITROGEN 64 mg/dL (7-20); CALCIUM 9.3 mg/dL (8.4-10.2); CARBON DIOXIDE 19 mmol/L (22-30); CHLORIDE 113 mmol/L (98-107); CREATINE KINASE 124 U/L (30-135); GLUCOSE 178 mg/dL (75-110); TOTAL PROTEIN 7.8 g/dL (6.3-8.2)
--- NOTE | 2018-10-10 18:24 | ER Document Report ---
ED Respiratory Problem <CORKY DAVISON - Last Filed: 10/10/18 21:40> - General Mode of Arrival: Medic Information source: Patient TRAVEL OUTSIDE OF THE [place] IN LAST 30 DAYS: No - HPI Patient complains to provider of: COPD Onset: Just prior to arrival Duration: Better Initiating Event: Other - Away from her oxygen Quality of pain: No pain Severity: Moderate Pain Level: 3 Context: Hx CHF, Hx COPD. denies: Recent cardiac event, Recent foreign travel, Recent long distance trvl, Recent immobilization Short of Breath: Moderate Chest pain/discomfort: Worse with deep breaths Cough: Nonproductive At home treatment: Bronchodilators, Oxygen Associated symptoms: Ankle/leg swelling, Chest pain/discomfort, Runny nose, Sinus pain/pressure, Short of breath, Wheezing Similar symptoms previously: Yes Recently seen / treated by doctor: Yes <ISIDORO ZHAO - Last Filed: 10/18/18 18:46> - General Chief Complaint: Breathing Difficulty Stated Complaint: POSSIBLE SYNCOPE Time Seen by Provider: 10/10/18 17:33 Notes: Patient is a 62-year-old morbidly obese female she comes into the emergency room tonight by EMS because she breathing. Patient is O2 dependent at home she forgot to put her oxygen on and take her tank with her went out to the truck to go over to her brother's house if she got into the truck she realized she forgot and her oxygen she became somewhat anxious and called her son to bring it to her by the time he got there she had worked herself into a hysterical fit to where she could not catch her breath he contacted EMS and they brought her into the emergency room. There was a note somewhere possible syncope and patient's where she had no syncopal episode or near syncopal episode except that she got very anxious and short of breath when she did not have her oxygen. Patient has a history of COPD CHF and states that they have recently just taken off Lasix and put her on Demadex. She has noticed some lower leg edema more prominent in the last few days. She does continue to smoke and says only 4 cigarettes/day. She denies history of diabetes. She denies any history of cardiac problems. She is states she is never had a cardiac stent placement or had an CO in the past. She does admit to a history of congestive heart failure though. (ISIDORO ZHAO) - Related Data Allergies/Adverse Reactions: No Known Allergies Allergy (Verified 07/26/18 09:38) Past Medical History - General Information source: Patient - Social History Smoking Status: Current Every Day Smoker Cigarette use (# per day): Yes - 4 cigarettes a day Chew tobacco use (# tins/day): No Smoking Education Provided: Yes Frequency of alcohol use: None Drug Abuse: None Lives with: Family Family History: Reviewed & Not Pertinent, CVA, Hypertension, Other - diabetes Patient has suicidal ideation: No Patient has homicidal ideation: No - Past Medical History Cardiac Medical History: Reports: Hx Congestive Heart Failure, Hx Coronary Artery Disease, Hx Hypercholesterolemia, Hx Hypertension, Hx Heart Murmur Pulmonary Medical History: Reports: Hx Asthma, Hx Bronchitis, Hx COPD, Hx Pneumonia Denies: Hx Tuberculosis Renal/ Medical History: Denies: Hx Peritoneal Dialysis GI Medical History: Denies: Hx Cirrhosis, Hx Crohn's Disease, Hx Diverticulitis , Hx Gastroesophageal Reflux Disease, Hx Hepatitis, Hx Hiatal Hernia Musculoskeletal Medical History: Denies Hx Arthritis, Denies Hx Fibromyalgia, Reports Hx Gout Skin Medical History: Denies Hx Eczema, Denies Hx Psoriasis Psychiatric Medical History: Reports: Hx Depression Traumatic Medical History: Denies: Hx Gunshot Wound, Hx Pneumothorax, Hx Traumatic Brain Injury Infectious Medical History: Denies: Hx Hepatitis Past Surgical History: Reports: Hx Section - x 4, Hx Tubal Ligation - Immunizations Hx Diphtheria, Pertussis, Tetanus Vaccination: Yes Hx Pneumococcal Vaccination: 05/06/12 <ISIDORO ZHAO - Last Filed: 10/18/18 18:46> Review of Systems - Review of Systems Constitutional: No symptoms reported EENT: Nose congestion, Nose discharge Cardiovascular: See HPI, Chest pain, Orthopnea, Dyspnea, Edema Respiratory: See HPI, Cough, Hurts to breathe, Short of breath, Wheezing Gastrointestinal: No symptoms reported Genitourinary: No symptoms reported Female Genitourinary: No symptoms reported Musculoskeletal: No symptoms reported Skin: No symptoms reported Hematologic/Lymphatic: No symptoms reported Neurological/Psychological: No symptoms reported -: Yes All other systems reviewed and negative <ISIDORO ZHAO - Last Filed: 10/18/18 18:46> Physical Exam <CORKY DAVISON - Last Filed: 10/10/18 21:40> - Vital signs Interpretation: Hypertensive <ISIDORO ZHAO - Last Filed: 10/18/18 18:46> - Vital signs Vitals: Resp Pulse Ox 25 H 93 10/10/18 17:19 10/10/18 17:19 - Notes Notes: PHYSICAL EXAMINATION: GENERAL: Patient is a well-nourished well-developed morbidly obese female who is in no distress at the time of physical exam but who does appear somewhat anxious. Patient and telling her story worked herself into a little bit of a anxiety attack as well because of the story and being without her oxygen. She appears to be to the oxygen psychologically as well as physiologically. HEAD: Atraumatic, normocephalic. EYES: Pupils equal round and reactive to light, extraocular movements intact, conjunctiva are normal. ENT: Examination head and upper airway showed nasal mucosa to be moist mild erythema mildly edematous but no real rhinorrhea noted present. No frontal or maxillary sinus tenderness to palpation. She does have some bilateral nasal congestion minimal. Examination of the TMs show them to be normal in appearance no air-fluid levels noted. The posterior pharynx has some mild erythema with some drainage of clear each color. Uvula is midline with minimal erythema no exudate no encroachment upon the uvula and airway is patent. NECK: Normal range of motion, supple without lymphadenopathy LUNGS: Auscultation patient's lungs show she has bilateral breath sounds with breath sounds decreased throughout with inspiratory expiratory wheeze noted throughout with rhonchi scattered mostly upper airway. HEART: Regular rate and rhythm without murmurs Female : deferred Musculoskeletal: Examination of patient's extremities show she has 1-2+ edema in the lower extremities up to approximately CABG. She displays 2+ pedal pulses. NEUROLOGICAL: Cranial nerves grossly intact. Normal speech, normal gait. Normal sensory, motor exams PSYCH: Normal mood, normal affect. SKIN: Warm, Dry, normal turgor. (ISIDORO ZHAO) Course - Laboratory Result Diagrams: 10/10/18 16:29 10/10/18 16:29 <CORKY DAVISON - Last Filed: 10/10/18 21:40> - Laboratory Result Diagrams: 10/15/18 06:07 10/15/18 06:07 <ISIDORO ZHAO - Last Filed: 10/18/18 18:46> - Re-evaluation Re-evalutation: 10/10/18 19:30 I was introduced to the patient by SHERLYN Richardson. Patient continued to have rales and wheezes on exam. She will be ordered 2 g of magnesium sulfate IV to help with her respiratory status. She states that she does feel better, but not her best. Her primary care doctor is Dr. Vidal from the [place]. Will wait for urinalysis and blood gas to result. 10/10/18 21:16 Patient is currently receiving her magnesium infusion. I have reviewed her labs and she shows a metabolic acidosis. It is unclear as to what is the cause of her metabolic acidosis. She has not provided a urine sample and I have asked her to provide urine. Due to her BNP of 4310, which is higher than her normal, and her worsening kidney function, I will consult Dr. Miller for admission. 10/10/18 21:[address] Miller. She will be admitted to [facility]. (CORKY DAVISON) 10/10/18 18:37 Going back and checking patient's EKG it looks like normal sinus rhythm when compared to her other EKGs are no acute changes. Looking back at patient's history of congestive heart failure she has a baseline BNP of around 6516-5728 today's over 4000. Her troponin is 0.054 I believe she normally runs higher when her congestive heart failure is active. Patient has had no chest pain at all. All of her complaint has been shortness of breath. All of it seems to be related to anxiety as well secondary to not having access to oxygen. She does have moderate amount of fluid so getting away from her oxygen she could drop quickly on her saturation and put her into a valid anxiety situation. Currently I am going to be checking out and the night crew will be coming in and I believe it is [place]. I will hand off to them. 10/10/18 19:22 (ISIDORO ZHAO) - Vital Signs Vital signs: Temp Pulse Resp BP Pulse Ox 97.6 F 59 L 18 177/75 H 100 10/15/18 10:21 10/15/18 10:21 10/15/18 10:21 10/15/18 10:21 10/15/18 10:21 - Laboratory Laboratory results interpreted by me: 10/10/18 10/10/18 10/10/18 16:29 16:29 16:29 WBC 11.2 H RBC 3.37 L Hgb 9.9 L Hct 30.1 L RDW 14.4 H ABG pH ABG pO2 ABG HCO3 ABG Total CO2 ABG O2 Saturation Sodium 147.0 H Chloride 113 H Carbon Dioxide 19 L BUN 64 H Creatinine 4.42 H Est GFR ( Amer) 12 L Est GFR (Non-Af Amer) 10 L Glucose 178 H Direct Bilirubin 0.5 H Alkaline Phosphatase 135 H NT-Pro-B Natriuret Pep 4310 H 10/10/18 19:08 WBC RBC Hgb Hct RDW ABG pH 7.24 L ABG pO2 74.8 L ABG HCO3 18.1 L ABG Total CO2 19.4 L ABG O2 Saturation 92.6 L Sodium Chloride Carbon Dioxide BUN Creatinine Est GFR ( Amer) Est GFR (Non-Af Amer) Glucose Direct Bilirubin Alkaline Phosphatase NT-Pro-B Natriuret Pep Discharge - Discharge Admitting Provider: Hospitalist Unit Admitted: IMCU <CORKY DAVISON - Last Filed: 10/10/18 21:40> <ISIDORO ZHAO - Last Filed: 10/18/18 18:46> - Discharge Clinical Impression: CHF (congestive heart failure) Qualifiers: Heart failure type: combined systolic and diastolic Heart failure chronicity: acute on chronic Qualified Code(s): I50.43 - Acute on chronic combined systolic (congestive) and diastolic (congestive) heart failure CHF exacerbation Qualifiers: Heart failure type: unspecified Qualified Code(s): I50.9 - Heart failure, unspecified COPD (chronic obstructive pulmonary disease) Qualifiers: COPD type: COPD with acute exacerbation Qualified Code(s): J44.1 - Chronic obstructive pulmonary disease with (acute) exacerbation Disposition: ADMITTED INPATIENT
[2018-10-10 19:21] LABS: ARTERIAL BLOOD BASE EXCESS -8.9 mmol/L; ARTERIAL BLOOD HCO3 18.1 mmol/L (20-24); ARTERIAL BLOOD O2 SATURATION 92.6 % (94-98); ARTERIAL BLOOD PCO2 43.3 mmHg (35-45); ARTERIAL BLOOD PH 7.24 (7.35-7.45); ARTERIAL BLOOD PO2 74.8 mmHg (80-100); ARTERIAL BLOOD TOTAL CO2 19.4 mmol/L (21-25)
[2018-10-10 19:25] LABS: ARTERIAL BLOOD FIO2 2L
[2018-10-10] MEDS: MAGNESIUM SULFATE/D5W 1 GM/100 ML RTUPB IV SCH ×2 (20:34→21:34)
[2018-10-10] MEDS ORDERED: MAGNESIUM HYDROXIDE SUSP 30 ML UDCUP PO PRN (21:41)
[2018-10-10] MEDS ORDERED: MAG HYDROX/AL HYDROX/SIMETH SUSP 30 ML UDCUP PO PRN (21:41)
[2018-10-10] MEDS ORDERED: HEPARIN SOD (PORCINE) 5,000 UNIT/ML 1 ML SYRINGE SUBCUT SCH (22:00)
[2018-10-10] MEDS: FLUTICASONE NASAL SPRAY 50 MCG/SPRY 120 SPRAY/16 GM NASL SCH (22:06)
[2018-10-10] MEDS: POTASSIUM CHLORIDE 10 MEQ CAPSULE.ER PO SCH (22:06)
[2018-10-10] MEDS: FUROSEMIDE INJ/PF 40 MG/4 ML SDV IV SCH (22:06)
[2018-10-10] MEDS: VALSARTAN 40 MG TABLET PO SCH (22:07)
[2018-10-10] MEDS ORDERED: HYDRALAZINE HCL INJ/PF 20 MG/1 ML SDV IV ONE (22:23)
[2018-10-10 22:50] LABS: APPEARANCE,URINE CLEAR; BILIRUBIN,URINE NEGATIVE (NEGATIVE); COLOR,URINE COLORLESS; GLUCOSE, URINE NEGATIVE (NEGATIVE); KETONES,URINE NEGATIVE (NEGATIVE); LEUKOCYTE ESTERASE,URINE NEGATIVE (NEGATIVE); NITRITE,URINE NEGATIVE (NEGATIVE); PROTEIN,URINE 100 mg/dL (NEGATIVE); URINE SPECIFIC GRAVITY 1.008; UROBILINOGEN,URINE NEGATIVE mg/dL (<2.0)
[2018-10-10 22:59] LABS: URINE AMPHETAMINES SCREEN NEGATIVE; URINE BARBITURATES SCREEN NEGATIVE; URINE BENZODIAZEPINES SCREEN NEGATIVE; URINE MARIJUANA (THC) SCREEN NEGATIVE; URINE METHADONE SCREEN NEGATIVE; URINE PHENCYCLIDINE SCREEN NEGATIVE
[2018-10-10 23:01] LABS: URINE COCAINE SCREEN UNCONFIRMED POSITIVE
[2018-10-10] MEDS ORDERED: ENOXAPARIN SODIUM INJ 120 MG/0.8 ML DISP.SYRIN SUBCUT ONE (23:45)
[2018-10-11 00:29] LABS: CREATINE KINASE MB 3.91 ng/mL (<4.55)
[2018-10-11 00:35] LABS: TROPONIN I 0.497 ng/mL
[2018-10-11] MEDS ORDERED: CLONIDINE HCL 0.2 MG TABLET PO ONE (04:57)
[2018-10-11] MEDS ORDERED: NITROGLYCERIN 2% OINTMENT 1 GM PACKET TP ONE (04:57)
--- NOTE | 2018-10-11 05:08 | PDOC H&P ---
History of Present Illness Admission Date/PCP: 10/10/18 21:44 WENCESLAO PEGUERO DO Patient complains of: Shortness of breath and anxiety History of Present Illness: BOOM TODD is a 62 year old female with a past medical history of morbid obesity, diastolic heart failure, obstructive sleep apnea, oxygen dependent COPD , stage III chronic kidney disease with current cocaine and tobacco abuse. Patient is admitted with several hours of shortness of breath and anxiety. Again denying cocaine use but tox screen positive, presenting with hypertensive urgency of 190/97 and acute on chronic renal failure with a creatinine of 4.4. She currently denies chest pain nausea vomiting or diaphoresis. She is started on 80 of Lasix IV and referred to the hospitalist for admission. She has flight of ideas and cannot recall her medications she admits to CPAP noncompliance. Past Medical History Cardiac Medical History: Reports: Congestive Heart Failure, Coronary Artery Disease, Hyperlipidema, Hypertension, Heart Murmur Pulmonary Medical History: Reports: Asthma, Bronchitis, Chronic Obstructive Pulmonary Disease (COPD), Pneumonia Denies: Tuberculosis GI Medical History: Denies: Cirrhosis, Crohn's Disease, Diverticulitis, Gastroesophageal Reflux Disease, Hepatitis, Hiatal Hernia Musculoskeltal Medical History: Reports: Gout Denies: Arthritis, Fibromyalgia Skin Medical History: Denies: Eczema, Psoriasis Psychiatric Medical History: Reports: Depression, Substance Abuse, Tobacco Dependency Traumatic Medical History: Denies: Gunshot Wound, Pneumothorax, Traumatic Brain Injury Hematology: Denies: Hemophilia, Sickle Cell Disease, Bleeding Tendencies Past Surgical History Past Surgical History: Reports: Section - x 4, Tubal Ligation Social History Lives with: Family Smoking Status: Current Every Day Smoker Cigarettes Packs Per Day: -1 Number of Years Smokin Last Time Smoked: this morning Frequency of Alcohol Use: Occasional Hx Recreational Drug Use: No Drugs: Cocaine Hx Prescription Drug Abuse: No - Advance Directive Resuscitation Status: Full Code Family History Family History: Reviewed & Not Pertinent, CVA, Hypertension, Other - diabetes Parental Family History Reviewed: Yes Children Family History Reviewed: Yes Sibling(s) Family History Reviewed.: Yes Medication/Allergy Home Medications: Albuterol Sulfate [Proair HFA] 2 puff IH DAILY 09/07/18 Amlodipine Besylate [Norvasc 10 mg Tablet] 10 mg PO DAILY 09/07/18 Aspirin [Ecotrin 81 mg EC Tablet] 81 mg PO DAILY 09/07/18 Budesonide/Formoterol Fumarate [Symbicort 160-4.5 Mcg Inhaler] 2 puff IH Q12 Cyanocobalamin (Vitamin B-12) [Vitamin B-12] 100 mcg PO DAILY 09/07/18 Ferrous Sulfate [Feosol 325 mg Tablet] 325 mg PO DAILY 09/07/18 Fluticasone Propionate [Flonase Nasal Whitney 50 Mcg/Whitney 16 gm] 1 spray NASL Q12 09/07/18 Gabapentin [Neurontin 400 mg Capsule] 400 mg PO Q12 09/07/18 Lisinopril [Prinivil] 5 mg PO DAILY 09/07/18 Tiotropium [place] [Spiriva Handihaler 18 mcg/dose (30 Dose)] 1 cap IH DAILY Tramadol HCl [Ultram 50 mg Tablet] 50 mg PO Q12HP PRN 09/07/18 Torsemide [Demadex 20 mg Tablet] 10 mg PO DAILY 30 Days #15 tablet 09/10/18 Allergies/Adverse Reactions: No Known Allergies Allergy (Verified 07/26/18 09:38) Review of Systems ROS unobtainable: Due to mental status - Hypomania and subsequently felt unreliable Physical Exam Vital Signs: Temp Pulse Resp BP Pulse Ox 97.9 F 97 24 H 200/91 H 97 10/10/18 23:19 10/10/18 23:19 10/11/18 04:00 10/10/18 23:19 10/11/18 00:23 Intake & Output 10/09/18 10/10/18 10/11/18 11:59 11:59 11:59 Intake Total 444 Balance 444 General appearance: PRESENT: cooperative, mild distress, morbidly obese Head exam: PRESENT: atraumatic, normocephalic Eye exam: PRESENT: conjunctiva pink, EOMI, PERRLA. ABSENT: scleral icterus Ear exam: PRESENT: normal external ear exam Mouth exam: PRESENT: moist, tongue midline Neck exam: ABSENT: carotid bruit, JVD, lymphadenopathy, thyromegaly Respiratory exam: PRESENT: accessory muscle use, crackles, decreased breath sounds, symmetrical, tachypnea. ABSENT: rales, rhonchi, wheezes Cardiovascular exam: PRESENT: gallop, RRR, +S1, +S2 Pulses: PRESENT: normal dorsalis pedis pul Vascular exam: PRESENT: normal capillary refill GI/Abdominal exam: PRESENT: normal bowel sounds, soft. ABSENT: distended, guarding, mass, organolmegaly, rebound, tenderness Rectal exam: PRESENT: deferred Extremities exam: PRESENT: full ROM, +2 edema. ABSENT: calf tenderness, clubbing, pedal edema Neurological exam: PRESENT: alert, altered, awake, oriented to person, oriented to place, oriented to time, oriented to situation, CN II-XII grossly intact. ABSENT: motor sensory deficit Psychiatric exam: PRESENT: anxious, manic Skin exam: PRESENT: dry, intact, warm. ABSENT: cyanosis, rash Results Laboratory Results: 10/10/18 22:15 Urine Color COLORLESS Urine Appearance CLEAR Urine pH 5.0 Ur Specific [place] 1.008 Urine Protein 100 H Urine Glucose (UA) NEGATIVE Urine Ketones NEGATIVE Urine Blood SMALL H Urine Nitrite NEGATIVE Ur Leukocyte Esterase NEGATIVE Urine WBC (Auto) 0 Urine RBC (Auto) 1 10/10/18 10/10/18 10/10/18 22:25 22:25 23:54 Creatine Kinase 142 H CK-MB (CK-2) Cancelled 3.91 Troponin I Cancelled 0.497 Impressions: Chest X-Ray 10/10/18 17:13 IMPRESSION: Borderline cardiomegaly without vinod pulmonary edema. Assessment & Plan - Diagnosis (1) CHF (congestive heart failure) Qualifiers: Heart failure chronicity: unspecified Is this a current diagnosis for this admission?: Yes Plan: Multifactorial secondary to medication and lifestyle noncompliance, uncontrolled hypertension and cocaine abuse. CHF care set, BiPAP, diuresis and blood pressure control. Follow-up serial cardiac enzymes. (2) COPD (chronic obstructive pulmonary disease) Qualifiers: COPD type: COPD with acute exacerbation Qualified Code(s): J44.1 - Chronic obstructive pulmonary disease with (acute) exacerbation Is this a current diagnosis for this admission?: Yes Plan: Secondary to #1 and cocaine abuse. Supplemental oxygen and BiPAP. (3) Acute dyspnea Is this a current diagnosis for this admission?: Yes Plan: Secondary to #1. Supportive measures (4) Obstructive sleep apnea Is this a current diagnosis for this admission?: Yes Plan: BiPAP and education (5) Substance abuse Is this a current diagnosis for this admission?: Yes Plan: Education - Time Time Spent: 50 to 70 Minutes - Inpatient Certification Medical Necessity: Need Close Monitoring Due to Risk of Patient Decompensation
[2018-10-11] MEDS ORDERED: DIAZEPAM 5 MG TABLET PO ONE (05:30)
[2018-10-11] MEDS ORDERED: ENOXAPARIN SODIUM INJ 120 MG/0.8 ML DISP.SYRIN SUBCUT ONE (05:47)
[2018-10-11 06:06] LABS: ABSOLUTE LYMPHOCYTES (AUTO) 1.3 10^3/uL (0.5-4.7); ABSOLUTE MONOCYTES (AUTO) 0.1 10^3/uL (0.1-1.4); ABSOLUTE NEUT (AUTO) 7.7 10^3/uL (1.7-8.2); BASOPHILS % (AUTO) 0.2 % (0-2); HEMATOCRIT 30.9 % (36.0-47.0); HEMOGLOBIN 10.4 g/dL (12.0-15.5); LYMPHOCYTES % (AUTO) 13.9 % (13-45); MEAN CORPUSCULAR HEMOGLOBIN 29.3 pg (27.0-33.4); MEAN CORPUSCULAR HGB CONC 33.6 g/dL (32.0-36.0); MEAN CORPUSCULAR VOLUME 87 fl (80-97); MONOCYTES % (AUTO) 0.8 % (3-13); PLATELET COUNT 312 10^3/uL (150-450); RED BLOOD COUNT 3.54 10^6/uL (3.72-5.28); RED CELL DISTRIBUTION WIDTH 14.4 % (11.5-14.0); SEGMENTED NEUTROPHILS % (AUTO) 85.1 % (42-78); TOTAL CELLS COUNTED % (AUTO) 100 %; WHITE BLOOD COUNT 9.1 10^3/uL (4.0-10.5)
[2018-10-11 06:36] LABS: CREATINE KINASE MB 3.79 ng/mL (<4.55)
[2018-10-11 06:44] LABS: TROPONIN I 0.269 ng/mL
--- NOTE | 2018-10-11 09:39 | EKG REPORT ---
SEVERITY:- ABNORMAL ECG - SINUS RHYTHM LEFT BUNDLE BRANCH BLOCK TYPE OF IVCD : Confirmed by: Leana Chavez MD 11-Oct-2018 09:38:46
[2018-10-11] MEDS: POTASSIUM CHLORIDE 10 MEQ CAPSULE.ER PO SCH ×2 (09:49→21:40)
[2018-10-11] MEDS: ASPIRIN 81 MG TABLET, ENT COATED PO SCH (09:50)
[2018-10-11] MEDS: DOCUSATE SODIUM 100 MG CAPSULE PO SCH (09:50)
[2018-10-11] MEDS: FUROSEMIDE INJ/PF 40 MG/4 ML SDV IV SCH ×2 (09:50→10:04)
[2018-10-11] MEDS: NITROGLYCERIN 5 MG (0.2 MG/HR) PATCH.TD24 TD SCH (09:50)
[2018-10-11] MEDS: ENOXAPARIN SODIUM INJ 120 MG/0.8 ML DISP.SYRIN SUBCUT SCH ×2 (09:51→10:05)
[2018-10-11] MEDS: VALSARTAN 40 MG TABLET PO SCH ×2 (09:53→21:52)
[2018-10-11] MEDS: FLUTICASONE NASAL SPRAY 50 MCG/SPRY 120 SPRAY/16 GM NASL SCH ×2 (09:53→21:47)
--- NOTE | 2018-10-11 12:20 | PDOC CONSULTATION ---
Consultation Consult Date: 10/11/18 Attending physician:: ARINA SHANE Consult reason:: I was asked to see the patient because of worsening kidney function. History of Present Illness Admission Date/PCP: 10/10/18 21:44 WENCESLAO PEGUERO DO History of Present Illness: BOOM TODD is a 62 year old female with history of diastolic heart failure, COPD, obstructive sleep apnea, chronic kidney disease, and morbid obesity who came in last night because of shortness of breath. Patient said she has her usual shortness of breath but it got worse yesterday. She was walking towards her trap and she just noticed that her exertional dyspnea has gotten worse. She thinks her leg swelling is the same. The last time she was here last month her furosemide was changed to Demadex. She denies any chest pains, cough, wheezing, fever nor chills. So upon presentation her blood pressure was also elevated at 190/97. This her blood pressure has been running 180-200/80 to 90s. She was given Lasix 80 mg IV x1 dose last night. She also presented with elevated BUN of 64, creatinine 4.42, with estimated GFR throughout. From the last couple months that she has been presenting here in the hospital it seems like her baseline is with BUN of 40-60s, creatinine of 2.42.9, and estimated GFR of 20-26. Patient denies any problems with urination including hematuria or noticing any foamy urine. He seems to be unaware of any history of chronic kidney disease but she said that about a year ago her doctor in [facility] told her that she has some abnormal kidney function. She follows up with the [facility] and she said she was going to be referred to I assume will be a sports lawyer. She denies any history of NSAID use nor abuse, denies any history of hepatitis, nor any history of any [id number] herbal medications. She denies any history of kidney stones. She said she is drinking may be too much but she is avoiding salt and using Mrs. Lopez. She denies eating a lot of red meat. Her last kidney ultrasound was last done in June 2014 and has not had any since then. From her last discharge she was on lisinopril and last night she was started on valsartan instead. Today she said she is feels a little bit better in terms of the breathing. He does not have any other further complaints. Past Medical History Cardiac Medical History: Reports: CHF-Diastolic, Coronary Artery Disease, Hyperlipidemia, Hypertension-primary Pulmonary Medical History: Reports: Chronic Obstructive Pulmonary Disease (COPD) , Pneumonia Renal/ Medical History: Reports: Chronic Kidney Disease Stage IV Musculoskeltal Medical History: Reports: Gout Psychiatric Medical History: Reports: Substance Abuse, Tobacco Dependency Hematology Medical History: Reports Anemia Past Surgical History Past Surgical History: Reports: Section - x 4, Tubal Ligation Social History Information Source: Patient Lives with: Family Smoking Status: Current Every Day Smoker Cigarettes Packs Per Day: -1 Number of Years Smokin Last Time Smoked: this morning Frequency of Alcohol Use: Occasional Hx Recreational Drug Use: No Drugs: Cocaine - I asked patient regarding cocaine use and she denies it several times today., Marijuana - Admits using this on the weekends. Hx Prescription Drug Abuse: No - Advance Directive Resuscitation Status: Full Code Family History Family History: DM - Brother and sister, Hypertension - Mother and father Parental Family History Reviewed: Yes Children Family History Reviewed: Yes Sibling(s) Family History Reviewed.: Yes Medication/Allergy Home Medications: Albuterol Sulfate [Proair HFA] 2 puff IH DAILY 09/07/18 Amlodipine Besylate [Norvasc 10 mg Tablet] 10 mg PO DAILY 09/07/18 Aspirin [Ecotrin 81 mg EC Tablet] 81 mg PO DAILY 09/07/18 Budesonide/Formoterol Fumarate [Symbicort 160-4.5 Mcg Inhaler] 2 puff IH Q12 Cyanocobalamin (Vitamin B-12) [Vitamin B-12] 100 mcg PO DAILY 09/07/18 Ferrous Sulfate [Feosol 325 mg Tablet] 325 mg PO DAILY 09/07/18 Fluticasone Propionate [Flonase Nasal [place] 50 Mcg/[place] 16 gm] 1 spray NASL Q12 09/07/18 Gabapentin [Neurontin 400 mg Capsule] 400 mg PO Q12 09/07/18 Lisinopril [Prinivil] 5 mg PO DAILY 09/07/18 Tiotropium Champion [Spiriva Handihaler 18 mcg/dose (30 Dose)] 1 cap IH DAILY Tramadol HCl [Ultram 50 mg Tablet] 50 mg PO Q12HP PRN 09/07/18 Torsemide [Demadex 20 mg Tablet] 10 mg PO DAILY 30 Days #15 tablet 09/10/18 Allergies/Adverse Reactions: No Known Allergies Allergy (Verified 07/26/18 09:38) Review of Systems All systems: reviewed and no additional remarkable complaints except as stated Review of Systems: Constitutional: ABSENT: chills, fatigue, fever(s), headache(s), weight gain, weight loss Eyes: ABSENT: visual disturbances Ears: ABSENT: hearing changes Cardiovascular: ABSENT: chest pain, orthropnea, palpitations; admits to dyspnea on exertion and lower extremity edema Respiratory: ABSENT: cough, dyspnea, hemoptysis Gastrointestinal: ABSENT: abdominal pain, constipation, diarrhea, hematemesis, hematochezia, nausea, vomiting Genitourinary: ABSENT: dysuria, hematuria Musculoskeletal: ABSENT: joint swelling Integumentary: ABSENT: rash, wounds Neurological: ABSENT: abnormal gait, abnormal speech, confusion, dizziness, focal weakness, numbness, syncope Psychiatric: ABSENT: anxiety, depression Endocrine: ABSENT: cold intolerance, heat intolerance, polydipsia, polyuria Hematologic/Lymphatic: ABSENT: easy bleeding, easy bruising, lymphadenopathy Physical Exam Vital Signs: Temp Pulse Resp BP Pulse Ox 97.8 F 81 20 158/74 H 100 10/11/18 08:08 10/11/18 08:08 10/11/18 08:08 10/11/18 08:08 10/11/18 08:08 Intake & Output 10/10/18 10/11/18 10/12/18 06:59 06:59 06:59 Intake Total 444 Balance 444 Weight 111 kg Exam: General appearance: No acute distress, cooperative, well-developed, well- nourished; comfortable Head exam: PRESENT: atraumatic, normocephalic Eye exam: PRESENT: Conjunctiva slightly pale, EOMI, PERRLA. ABSENT: conjunctival injection, scleral icterus Mouth exam: PRESENT: moist, neck supple, tongue midline Neck exam: PRESENT: full ROM. ABSENT: carotid bruit, JVD, lymphadenopathy, thyromegaly Respiratory exam: PRESENT: Diffuse rhonchi and wheezes to auscultation bilaterally. Also has bibasilar crackles ABSENT: Stridor Cardiovascular exam: PRESENT: RRR, +S1, +S2. ABSENT: systolic murmur Pulses: PRESENT: normal radial pulses, normal dorsalis pedis pulses GI/Abdominal exam: PRESENT: normal bowel sounds, soft. ABSENT: guarding, mass, tenderness Rectal exam: Deferred Extremities exam: PRESENT: full ROM. Grade 1 bilateral lower extremity pitting edema ABSENT: calf tenderness Musculoskeletal: PRESENT: full ROM. ABSENT: deformity Neurological exam: PRESENT: alert, Awake, Oriented to person, Oriented to place , Oriented to time, reflexes normal, CN II-XII grossly intact. ABSENT: motor sensory deficit Psychiatric exam: PRESENT: appropriate affect, normal mood. ABSENT: homicidal ideation, suicidal ideation Skin exam: PRESENT: intact, dry, warm. ABSENT: rash Results Laboratory Results: 10/11/18 05:55 10/10/18 10/11/18 22:15 05:55 WBC 9.1 RBC 3.54 L Hgb 10.4 L Hct 30.9 L MCV 87 MCH 29.3 MCHC 33.6 RDW 14.4 H Plt Count 312 Seg Neutrophils % 85.1 H Lymphocytes % 13.9 Monocytes % 0.8 L Eosinophils % 0.0 Basophils % 0.2 Absolute Neutrophils 7.7 Absolute Lymphocytes 1.3 Absolute Monocytes 0.1 Absolute Eosinophils 0.0 Absolute Basophils 0.0 Urine Color COLORLESS Urine Appearance CLEAR Urine pH 5.0 Ur Specific [place] 1.008 Urine Protein 100 H Urine Glucose (UA) NEGATIVE Urine Ketones NEGATIVE Urine Blood SMALL H Urine Nitrite NEGATIVE Ur Leukocyte Esterase NEGATIVE Urine WBC (Auto) 0 Urine RBC (Auto) 1 10/10/18 10/10/18 10/10/18 22:25 22:25 23:54 Creatine Kinase 142 H CK-MB (CK-2) Cancelled 3.91 Troponin I Cancelled 0.497 10/11/18 10/11/18 05:55 05:55 Creatine Kinase 129 CK-MB (CK-2) 3.79 Troponin I 0.269 Impressions: Chest X-Ray 10/10/18 17:13 IMPRESSION: Borderline cardiomegaly without vinod pulmonary edema. Assessment & Plan - Diagnosis (1) Acute kidney injury superimposed on chronic kidney disease Is this a current diagnosis for this admission?: Yes Plan: Acute worsening of kidney function is secondary to prerenal hemodynamic factors due to elevated blood pressure. No other precipitating factors is pretty obvious at this time. We will also get a renal ultrasound to rule out any obstructive process. Patient does not seem to be in acute congestive heart failure at this time. She does not require any urgent renal replacement therapy. Continue to monitor kidney function. (2) CKD (chronic kidney disease), stage IV Is this a current diagnosis for this admission?: Yes Plan: She has mild proteinuria but no significant microhematuria. Most likely secondary to hypertensive nephrosclerosis. Other risk factors include obesity. Patient needs to be followed periodically by a sports lawyer as an outpatient. Advised patient to [facility] sports [facility]. I will check her urine protein to creatinine ratio, and phosphorus level. Advised patient that the need to control her blood pressure to prevent progression of kidney disease. Also advised her regarding potential complications of chronic kidney disease. (3) Metabolic acidosis Is this a current diagnosis for this admission?: Yes Plan: Secondary to AK I with CKD. Mild. Continue to monitor. (4) Acute exacerbation of chronic obstructive pulmonary disease (COPD) Is this a current diagnosis for this admission?: Yes (5) Hypertension Qualifiers: Hypertension type: essential hypertension Qualified Code(s): I10 - Essential (primary) hypertension Is this a current diagnosis for this admission?: Yes Plan: Slightly improved this morning but still uncontrolled. Resume her amlodipine 10 mg daily. (6) Anemia Qualifiers: Anemia type: B12 deficiency Vitamin B12 deficiency anemia type: unspecified B12 deficiency Qualified Code(s): D51.9 - Vitamin B12 deficiency anemia, unspecified Is this a current diagnosis for this admission?: Yes Plan: For sure chronic kidney disease is 1 of the cause but we will check out her iron panel as well. (7) CHF (congestive heart failure) Qualifiers: Heart failure chronicity: unspecified Is this a current diagnosis for this admission?: Yes Plan: She is going to need her maintenance diuretics. (8) Hypernatremia Is this a current diagnosis for this admission?: Yes (9) Obesity Is this a current diagnosis for this admission?: Yes (10) Obstructive sleep apnea Is this a current diagnosis for this admission?: Yes (11) Substance abuse Is this a current diagnosis for this admission?: Yes (12) Tobacco abuse Is this a current diagnosis for this admission?: Yes - Notes Notes: Thank you very much for this consultation. I will follow the patient with you. - Time Time Spent: Greater than 70 Minutes
[2018-10-11] MEDS: METHYLPREDNISOLONE INJ 40 MG/1 ML SDV IV SCH ×2 (12:24→21:45)
[2018-10-11] MEDS: AMLODIPINE BESYLATE 10 MG TABLET PO SCH (12:24)
[2018-10-11] MEDS: HEPARIN SOD (PORCINE) 5,000 UNIT/ML 1 ML SYRINGE SUBCUT SCH ×2 (12:25→21:44)
[2018-10-11] MEDS: IPRATROPIUM/ALBUTEROL 0.5-2.5 MG/3 ML AMPUL NEB SCH ×3 (12:47→20:34)
[2018-10-11 13:39] LABS: CREATINE KINASE MB 3.15 ng/mL (<4.55); TROPONIN I 0.142 ng/mL
--- NOTE | 2018-10-11 14:09 | PDOC PROGRESS REPORT ---
Subjective Progress Note for:: 10/11/18 Subjective:: Ms. Kelly is a 62 yr old female with a PMH of morbid obesity, diastolic heart failure, obstructive sleep apnea, oxygen dependent COPD, stage III chronic kidney disease with current cocaine and tobacco abuse who presented with increasing SOB a few hours prior to presentation. She presented with a blood pressure of 190/97 and worsening renal function with a creatinine of 4.4. She was admitted for possible CHF exacerbation. No acute event overnight. Upon encounter this morning, she says she feels slightly better. She denies chest pain. She says she was having SOB and wheezing at home. Reason For Visit: COPD AND HEART FAILURE, EXACERBATION WITH COCAINE Physical Exam Vital Signs: Temp Pulse Resp BP Pulse Ox 97.9 F 75 20 164/74 H 97 10/11/18 11:48 10/11/18 12:47 10/11/18 12:47 10/11/18 11:48 10/11/18 12:47 Intake & Output 10/10/18 10/11/18 10/12/18 06:59 06:59 06:59 Intake Total 444 800 Balance 444 800 Weight 244 lb 11.41 oz General appearance: PRESENT: no acute distress, well-developed, well-nourished Head exam: PRESENT: atraumatic, normocephalic Eye exam: PRESENT: conjunctiva pink, EOMI, PERRLA. ABSENT: scleral icterus Ear exam: PRESENT: normal external ear exam Mouth exam: PRESENT: moist, tongue midline Neck exam: ABSENT: carotid bruit, JVD, lymphadenopathy, thyromegaly Respiratory exam: PRESENT: clear to auscultation brandon, rhonchi, wheezes. ABSENT : rales Cardiovascular exam: PRESENT: RRR. ABSENT: diastolic murmur, rubs, systolic murmur Pulses: PRESENT: normal dorsalis pedis pul GI/Abdominal exam: PRESENT: normal bowel sounds, soft. ABSENT: distended, guarding, mass, organolmegaly, rebound, tenderness Rectal exam: PRESENT: deferred Neurological exam: PRESENT: alert, awake, oriented to person, oriented to place , oriented to time, oriented to situation, CN II-XII grossly intact. ABSENT: motor sensory deficit Results Laboratory Results: 10/11/18 05:55 10/10/18 10/11/18 22:15 05:55 WBC 9.1 RBC 3.54 L Hgb 10.4 L Hct 30.9 L MCV 87 MCH 29.3 MCHC 33.6 RDW 14.4 H Plt Count 312 Seg Neutrophils % 85.1 H Lymphocytes % 13.9 Monocytes % 0.8 L Eosinophils % 0.0 Basophils % 0.2 Absolute Neutrophils 7.7 Absolute Lymphocytes 1.3 Absolute Monocytes 0.1 Absolute Eosinophils 0.0 Absolute Basophils 0.0 Urine Color COLORLESS Urine Appearance CLEAR Urine pH 5.0 Ur Specific [place] 1.008 Urine Protein 100 H Urine Glucose (UA) NEGATIVE Urine Ketones NEGATIVE Urine Blood SMALL H Urine Nitrite NEGATIVE Ur Leukocyte Esterase NEGATIVE Urine WBC (Auto) 0 Urine RBC (Auto) 1 10/10/18 10/10/18 10/10/18 22:25 22:25 23:54 Creatine Kinase 142 H CK-MB (CK-2) Cancelled 3.91 Troponin I Cancelled 0.497 10/11/18 10/11/18 10/11/18 05:55 05:55 12:57 Creatine Kinase 129 91 CK-MB (CK-2) 3.79 Troponin I 0.269 10/11/18 12:57 Creatine Kinase CK-MB (CK-2) 3.15 Troponin I 0.142 Impressions: Chest X-Ray 10/10/18 17:13 IMPRESSION: Borderline cardiomegaly without vinod pulmonary edema. Assessment & Plan - Diagnosis (1) COPD exacerbation Is this a current diagnosis for this admission?: Yes Plan: Patient does have wheezing, rhonchi and occasional rales on the bases on lung exam. Will start breathing scheduled breathing treatments and will start her on steroids as well. She is currently saturating well on 3L of [place]. (2) Acute on chronic diastolic (congestive) heart failure Is this a current diagnosis for this admission?: Yes Plan: Patient was started on Lasix on admission. Chest x-ray does not show any pulmonary edema. Her SOB is likely a combination of CHF and cOPD exacerbation. Decrease Lasix to 40 mg daily from q12. (3) Acute on chronic renal failure Qualifiers: Acute renal failure type: unspecified Chronic kidney disease stage: unspecified stage Qualified Code(s): N17.9 - Acute kidney failure, unspecified ; N18.9 - Chronic kidney disease, unspecified; N18.9 - Chronic kidney disease, unspecified Is this a current diagnosis for this admission?: Yes Plan: Possible from uncontrolled HTN. Nephrology consulted. (4) Hypertension Qualifiers: Hypertension type: essential hypertension Qualified Code(s): I10 - Essential (primary) hypertension Is this a current diagnosis for this admission?: Yes Plan: Blood pressures have improved down to 160/80s. On valsartan and hydralazine prn. Amlodipine also resumed by nephro. - Time Time Spent with patient: 25-34 minutes
--- NOTE | 2018-10-11 17:46 | RADIOLOGY REPORT (SQ) ---
EXAM DESCRIPTION: U/S RETROPERITON (RENAL/AORTA) COMPLETED DATE/TIME: 10/11/2018 5:36 pm REASON FOR STUDY: MARIBEL/CKD COMPARISON: None. TECHNIQUE: Dynamic and static grayscale images acquired of the kidneys and bladder and recorded on P ACS. Additional selected color Doppler and spectral images recorded. LIMITATIONS: None. FINDINGS: RIGHT KIDNEY: Normal size. Normal echogenicity. No solid or suspicious masses. No hydronep hrosis. No calcifications. LEFT KIDNEY: Normal size. Normal echogenicity. No solid or suspicious masses. No hydronephrosis. No calcifications. BLADDER: No masses. OTHER FINDINGS: No other significant finding. IMPRESSION: NORMAL RENAL AND BLADDER ULTRASOUND. TECHNICAL DOCUMENTATION: JOB ID: [id number] [employer]- All Rights Reserved Reading location - IP/workstation name: [email or web address]
[2018-10-11] MEDS ORDERED: DIAZEPAM 5 MG TABLET PO SCH (18:00)
[2018-10-11] MEDS ORDERED: FUROSEMIDE INJ/PF 40 MG/4 ML SDV IV ONE (18:15)
[2018-10-11 19:30] LABS: URINE CREATININE 76.2 mg/dL (15-278)
[2018-10-11 21:16] LABS: UR PRO/CREAT RATIO RESULT 7.9 mg/mg (0.0-0.2); URINE PROTEIN 600.2 mg/dL (<12)
[2018-10-12] MEDS: IPRATROPIUM/ALBUTEROL 0.5-2.5 MG/3 ML AMPUL NEB SCH ×6 (00:35→19:49)
[2018-10-12 05:32] LABS: ABSOLUTE RETICS # 0.074 10^6/uL (0.028-0.122); RETICULOCYTE COUNT (AUTO) 2.47 % (0.66-2.85)
[2018-10-12 05:48] LABS: HEMATOCRIT 26.2 % (36.0-47.0); HEMOGLOBIN 8.8 g/dL (12.0-15.5); MEAN CORPUSCULAR HEMOGLOBIN 29.2 pg (27.0-33.4); MEAN CORPUSCULAR HGB CONC 33.6 g/dL (32.0-36.0); MEAN CORPUSCULAR VOLUME 87 fl (80-97); PLATELET COUNT 268 10^3/uL (150-450); RED BLOOD COUNT 3.02 10^6/uL (3.72-5.28); RED CELL DISTRIBUTION WIDTH 14.1 % (11.5-14.0); WHITE BLOOD COUNT 11.1 10^3/uL (4.0-10.5)
[2018-10-12 05:52] LABS: ANION GAP 15 (5-19); BLOOD UREA NITROGEN 82 mg/dL (7-20); CALCIUM 8.8 mg/dL (8.4-10.2); CARBON DIOXIDE 20 mmol/L (22-30); CHLORIDE 110 mmol/L (98-107); GLUCOSE 130 mg/dL (75-110); IRON(TIBC) 78.4 ug/dL (37-170); PHOSPHORUS 5.1 mg/dL (2.5-4.5); POTASSIUM 4.1 mmol/L (3.6-5.0); SODIUM 144.6 mmol/L (137-145)
[2018-10-12 06:57] LABS: FOLATE 5.15 ng/mL (>2.76)
--- NOTE | 2018-10-12 09:12 | RADIOLOGY REPORT (SQ) ---
EXAM DESCRIPTION: CHEST SINGLE VIEW COMPLETED DATE/TIME: 10/12/2018 9:04 am REASON FOR STUDY: assess for congestion COMPARISON: 10/10/2018. NUMBER OF VIEWS: One view. TECHNIQUE: Single frontal radiographic view of the chest acquired. LIMITATIONS: None. FINDINGS: LUNGS AND PLEURA: No opacities, masses or pneumothorax. No pleural effusion. MEDIASTINUM AND HILAR STRUCTURES: No masses. Contour normal. HEART AND VASCULAR STRUCTURES: Heart enlarged without failure. Normal vasculature. BONES: No acute findings. HARDWARE: None in the chest. OTHER: No other significant finding. IMPRESSION: HEART ENLARGED WITHOUT FAILURE. NO OTHER SIGNIFICANT RADIOGRAPHIC FINDING IN THE CHEST. TECHNICAL DOCUMENTATION: JOB ID: [id number] [employer]- All Rights Reserved Reading location - IP/workstation name: [email or web address]
[2018-10-12] MEDS: DOCUSATE SODIUM 100 MG CAPSULE PO SCH (09:58)
[2018-10-12] MEDS: HEPARIN SOD (PORCINE) 5,000 UNIT/ML 1 ML SYRINGE SUBCUT SCH ×2 (09:59→21:07)
[2018-10-12] MEDS: VALSARTAN 40 MG TABLET PO SCH ×2 (09:59→21:06)
[2018-10-12] MEDS: ASPIRIN 81 MG TABLET, ENT COATED PO SCH (09:59)
[2018-10-12] MEDS: FLUTICASONE NASAL SPRAY 50 MCG/SPRY 120 SPRAY/16 GM NASL SCH ×2 (09:59→21:07)
[2018-10-12] MEDS: NITROGLYCERIN 5 MG (0.2 MG/HR) PATCH.TD24 TD SCH (10:00)
[2018-10-12] MEDS ORDERED: FUROSEMIDE INJ/PF 40 MG/4 ML SDV IV SCH (10:00)
[2018-10-12] MEDS: POTASSIUM CHLORIDE 10 MEQ CAPSULE.ER PO SCH ×2 (10:00→21:07)
[2018-10-12] MEDS: AMLODIPINE BESYLATE 10 MG TABLET PO SCH (10:01)
[2018-10-12] MEDS: METHYLPREDNISOLONE INJ 40 MG/1 ML SDV IV SCH ×2 (10:01→21:08)
--- NOTE | 2018-10-12 12:13 | PDOC PROGRESS REPORT ---
Subjective Progress Note for:: 10/12/18 Subjective:: Patient is feeling better in terms of breathing. Her blood pressure seems to be still a little bit elevated. she does not otherwise have any other new complaints. Reason For Visit: COPD AND HEART FAILURE, EXACERBATION WITH COCAINE Physical Exam Vital Signs: Temp Pulse Resp BP Pulse Ox 97.7 F 84 17 162/73 H 98 10/12/18 07:55 10/12/18 08:19 10/12/18 08:19 10/12/18 07:55 10/12/18 08:19 Intake & Output 10/11/18 10/12/18 10/13/18 06:59 06:59 06:59 Intake Total 444 1440 Output Total 575 Balance 444 865 Weight 111 kg 114.5 kg Exam: General appearance: PRESENT: no acute distress, cooperative, well-developed, well-nourished Head exam: PRESENT: atraumatic, normocephalic Eye exam: PRESENT: conjunctiva pink, PERRLA. ABSENT: scleral icterus Neck exam: ABSENT: JVD Respiratory exam: PRESENT: Diminished breath sounds. Decreased bilateral and diffuse wheezes and rhonchi ABSENT: crackles, rales, unlabored Cardiovascular exam: PRESENT: Regular rate rhythm -+S1, +S2. ABSENT: diastolic murmur, systolic murmur GI/Abdominal exam: PRESENT: normal bowel sounds, soft. ABSENT: guarding, mass, tenderness Extremities exam: ABSENT: No edema Neurological exam: PRESENT: alert, awake, oriented to person, place and time. Skin exam: PRESENT: dry, warm Results Laboratory Results: 10/12/18 05:23 10/12/18 05:23 10/12/18 10/12/18 05:23 05:23 WBC 11.1 H RBC 3.02 L Hgb 8.8 L Hct 26.2 L MCV 87 MCH 29.2 MCHC 33.6 RDW 14.1 H Plt Count 268 Retic Count (auto) 2.47 Absolute Retic 0.074 Sodium 144.6 Potassium 4.1 Chloride 110 H Carbon Dioxide 20 L Anion Gap 15 BUN 82 H Creatinine 4.24 H Est GFR ( Amer) 13 L Est GFR (Non-Af Amer) 11 L Glucose 130 H Calcium 8.8 Phosphorus 5.1 H Iron 78.4 TIBC 219 L % Saturation 36 Ferritin 305.00 H Vitamin B12 798.0 Folate 5.15 10/10/18 10/10/18 10/10/18 22:25 22:25 23:54 Creatine Kinase 142 H CK-MB (CK-2) Cancelled 3.91 Troponin I Cancelled 0.497 10/11/18 10/11/18 10/11/18 05:55 05:55 12:57 Creatine Kinase 129 91 CK-MB (CK-2) 3.79 Troponin I 0.269 10/11/18 12:57 Creatine Kinase CK-MB (CK-2) 3.15 Troponin I 0.142 Impressions: Renal Ultrasound 10/11/18 11:50 IMPRESSION: NORMAL RENAL AND BLADDER ULTRASOUND. Chest X-Ray 10/12/18 06:00 IMPRESSION: HEART ENLARGED WITHOUT FAILURE. NO OTHER SIGNIFICANT RADIOGRAPHIC FINDING IN THE CHEST. Assessment & Plan - Diagnosis (1) Acute kidney injury superimposed on chronic kidney disease Is this a current diagnosis for this admission?: Yes Plan: Kidney function remains unchanged. Continue to monitor kidney function and avoid nephrotoxic medications. Change her IV Lasix to oral Lasix 40 mg once a day since she does not seem to be in any pulmonary congestion or fluid overload at this time. Her renal ultrasound is unremarkable. (2) CKD (chronic kidney disease), stage IV Is this a current diagnosis for this admission?: Yes Plan: Secondary to hypertensive nephrosclerosis. Her urine protein to creatinine ratio is 7.9 which seems to be not proportional to her clinical condition considering she is not swollen at all. We will check her protein electrophoresis. (3) Metabolic acidosis Is this a current diagnosis for this admission?: Yes Plan: Mild. (4) Acute exacerbation of chronic obstructive pulmonary disease (COPD) Is this a current diagnosis for this admission?: Yes Plan: Deferred to hospitalist. (5) Hypertension Qualifiers: Hypertension type: essential hypertension Qualified Code(s): I10 - Essential (primary) hypertension Is this a current diagnosis for this admission?: Yes Plan: Start hydralazine 25 mg p.o. 2 times a day. (6) Anemia Qualifiers: Anemia type: B12 deficiency Vitamin B12 deficiency anemia type: unspecified B12 deficiency Qualified Code(s): D51.9 - Vitamin B12 deficiency anemia, unspecified Is this a current diagnosis for this admission?: Yes Plan: Iron panel is acceptable. We will give her Procrit today. (7) Hyperphosphatemia Is this a current diagnosis for this admission?: Yes (8) CHF (congestive heart failure) Qualifiers: Heart failure chronicity: unspecified Is this a current diagnosis for this admission?: Yes Plan: Currently clinically compensated. (9) Hypernatremia Is this a current diagnosis for this admission?: Yes Plan: Improved and resolved. (10) Obesity Is this a current diagnosis for this admission?: Yes (11) Obstructive sleep apnea Is this a current diagnosis for this admission?: Yes (12) Substance abuse Is this a current diagnosis for this admission?: Yes (13) Tobacco abuse Is this a current diagnosis for this admission?: Yes - Time Time with patient: 15-25 minutes
[2018-10-12] MEDS ORDERED: EPOETIN ALFA INJ 20000 UNIT/1 ML VIAL (RENAL) SUBCUT ONE (13:00)
[2018-10-12] MEDS: HYDRALAZINE HCL 25 MG TABLET PO SCH ×2 (13:29→21:06)
--- NOTE | 2018-10-12 14:33 | PDOC PROGRESS REPORT ---
Subjective Progress Note for:: 10/12/18 Subjective:: Ms. Kelly is a 62 yr old female with a PMH of morbid obesity, diastolic heart failure, obstructive sleep apnea, oxygen dependent COPD, stage III chronic kidney disease with current cocaine and tobacco abuse who presented with increasing SOB a few hours prior to presentation. She presented with a blood pressure of 190/97 and worsening renal function with a creatinine of 4.4. She was admitted for possible CHF exacerbation. No acute event overnight. Upon encounter this morning, her SOB continue to significantly improve. She denies chest pain. She is on oxygen at home at 2lpm. Reason For Visit: COPD AND HEART FAILURE, EXACERBATION WITH COCAINE Physical Exam Vital Signs: Temp Pulse Resp BP Pulse Ox 98.0 F 86 17 166/72 H 98 10/12/18 11:42 10/12/18 14:00 10/12/18 12:34 10/12/18 11:42 10/12/18 12:34 Intake & Output 10/11/18 10/12/18 10/13/18 06:59 06:59 06:59 Intake Total 444 1440 Output Total 575 Balance 444 865 Weight 244 lb 11.41 oz 252 lb 6.868 oz General appearance: PRESENT: no acute distress, well-developed, well-nourished Head exam: PRESENT: atraumatic, normocephalic Eye exam: PRESENT: conjunctiva pink, EOMI, PERRLA. ABSENT: scleral icterus Ear exam: PRESENT: normal external ear exam Mouth exam: PRESENT: moist, tongue midline Neck exam: ABSENT: carotid bruit, JVD, lymphadenopathy, thyromegaly Respiratory exam: PRESENT: rhonchi, wheezes Cardiovascular exam: PRESENT: RRR. ABSENT: diastolic murmur, rubs, systolic murmur Pulses: PRESENT: normal dorsalis pedis pul GI/Abdominal exam: PRESENT: normal bowel sounds, soft. ABSENT: distended, guarding, mass, organolmegaly, rebound, tenderness Rectal exam: PRESENT: deferred Neurological exam: PRESENT: alert, awake, oriented to person, oriented to place , oriented to time, oriented to situation, CN II-XII grossly intact. ABSENT: motor sensory deficit Results Laboratory Results: 10/12/18 05:23 10/12/18 05:23 11/23/18 11/23/18 05:23 05:23 WBC 11.1 H RBC 3.02 L Hgb 8.8 L Hct 26.2 L MCV 87 MCH 29.2 MCHC 33.6 RDW 14.1 H Plt Count 268 Retic Count (auto) 2.47 Absolute Retic 0.074 Sodium 144.6 Potassium 4.1 Chloride 110 H Carbon Dioxide 20 L Anion Gap 15 BUN 82 H Creatinine 4.24 H Est GFR ( Amer) 13 L Est GFR (Non-Af Amer) 11 L Glucose 130 H Calcium 8.8 Phosphorus 5.1 H Iron 78.4 TIBC 219 L % Saturation 36 Ferritin 305.00 H Vitamin B12 798.0 Folate 5.15 10/10/18 10/10/18 10/10/18 22:25 22:25 23:54 Creatine Kinase 142 H CK-MB (CK-2) Cancelled 3.91 Troponin I Cancelled 0.497 10/11/18 10/11/18 10/11/18 05:55 05:55 12:57 Creatine Kinase 129 91 CK-MB (CK-2) 3.79 Troponin I 0.269 10/11/18 12:57 Creatine Kinase CK-MB (CK-2) 3.15 Troponin I 0.142 Impressions: Renal Ultrasound 10/11/18 11:50 IMPRESSION: NORMAL RENAL AND BLADDER ULTRASOUND. Chest X-Ray 10/12/18 06:00 IMPRESSION: HEART ENLARGED WITHOUT FAILURE. NO OTHER SIGNIFICANT RADIOGRAPHIC FINDING IN THE CHEST. Assessment & Plan - Diagnosis (1) COPD exacerbation Is this a current diagnosis for this admission?: Yes Plan: Improving. Continue steroids and breathing treatments. She is currently saturating well on 3L of [place]. (2) Acute on chronic diastolic (congestive) heart failure Is this a current diagnosis for this admission?: Yes Plan: Patient was started on Lasix on admission. Chest x-ray does not show any pulmonary edema. Her SOB is likely a combination of CHF and COPD exacerbation. IV Lasix switched to 40 mg PO daily by nephro. (3) Acute on chronic renal failure Qualifiers: Acute renal failure type: unspecified Chronic kidney disease stage: unspecified stage Qualified Code(s): N17.9 - Acute kidney failure, unspecified ; N18.9 - Chronic kidney disease, unspecified; N18.9 - Chronic kidney disease, unspecified Is this a current diagnosis for this admission?: Yes Plan: Possibly from uncontrolled HTN. Nephrology following. (4) Hypertension Qualifiers: Hypertension type: essential hypertension Qualified Code(s): I10 - Essential (primary) hypertension Is this a current diagnosis for this admission?: Yes Plan: Blood pressures have improved down to 160/80s. On valsartan, amlodipine and hydralazine prn. - Time Time Spent with patient: 15-24 minutes
[2018-10-12 18:04] LABS: APPEARANCE,URINE CLOUDY; BILIRUBIN,URINE NEGATIVE (NEGATIVE); GLUCOSE, URINE NEGATIVE (NEGATIVE); KETONES,URINE NEGATIVE (NEGATIVE); LEUKOCYTE ESTERASE,URINE NEGATIVE (NEGATIVE); NITRITE,URINE NEGATIVE (NEGATIVE); PROTEIN,URINE >=500 mg/dL (NEGATIVE); UROBILINOGEN,URINE NEGATIVE mg/dL (<2.0)
[2018-10-12 18:12] LABS: COLOR,URINE YELLOW
[2018-10-12] MEDS ORDERED: CLONIDINE HCL 0.2 MG TABLET PO ONE (20:34)
[2018-10-12] MEDS: GABAPENTIN 300 MG CAPSULE PO SCH (21:06)
[2018-10-12] MEDS ORDERED: CLONIDINE HCL 0.2 MG TABLET PO SCH (22:00)
[2018-10-13] MEDS: IPRATROPIUM/ALBUTEROL 0.5-2.5 MG/3 ML AMPUL NEB SCH ×6 (00:05→20:16)
[2018-10-13] MEDS ORDERED: CLONIDINE HCL 0.2 MG TABLET PO ONE (04:00)
[2018-10-13] MEDS ORDERED: CLONIDINE HCL 0.2 MG TABLET ONE (05:33)
[2018-10-13 05:49] LABS: ABSOLUTE LYMPHOCYTES (AUTO) 1.5 10^3/uL (0.5-4.7); ABSOLUTE MONOCYTES (AUTO) 0.2 10^3/uL (0.1-1.4); ABSOLUTE NEUT (AUTO) 12.9 10^3/uL (1.7-8.2); BASOPHILS % (AUTO) 0.1 % (0-2); HEMATOCRIT 26.7 % (36.0-47.0); HEMOGLOBIN 8.9 g/dL (12.0-15.5); MEAN CORPUSCULAR HGB CONC 33.2 g/dL (32.0-36.0); MEAN CORPUSCULAR VOLUME 87 fl (80-97); MONOCYTES % (AUTO) 1.5 % (3-13); PLATELET COUNT 270 10^3/uL (150-450); RED BLOOD COUNT 3.05 10^6/uL (3.72-5.28); RED CELL DISTRIBUTION WIDTH 14.3 % (11.5-14.0); SEGMENTED NEUTROPHILS % (AUTO) 88.4 % (42-78); TOTAL CELLS COUNTED % (AUTO) 100 %; WHITE BLOOD COUNT 14.6 10^3/uL (4.0-10.5)
[2018-10-13] MEDS: CLONIDINE HCL 0.2 MG TABLET PO SCH ×3 (05:51→21:56)
[2018-10-13] MEDS: HYDRALAZINE HCL 25 MG TABLET PO SCH ×2 (05:53→18:02)
[2018-10-13 06:05] LABS: ANION GAP 13 (5-19); BLOOD UREA NITROGEN 94 mg/dL (7-20); CARBON DIOXIDE 20 mmol/L (22-30); CHLORIDE 110 mmol/L (98-107); GLUCOSE 139 mg/dL (75-110); POTASSIUM 4.7 mmol/L (3.6-5.0); SODIUM 143.1 mmol/L (137-145)
--- NOTE | 2018-10-13 08:04 | EKG REPORT ---
SEVERITY:- ABNORMAL ECG - SINUS RHYTHM NONSPECIFIC INTRAVENTRICULAR CONDUCTION DELAY LEFT VENTRICULAR HYPERTROPHY : Confirmed by: Leana Chavez MD 13-Oct-2018 08:02:56
[2018-10-13] MEDS: FLUTICASONE NASAL SPRAY 50 MCG/SPRY 120 SPRAY/16 GM NASL SCH ×2 (12:18→21:57)
[2018-10-13] MEDS: POTASSIUM CHLORIDE 10 MEQ CAPSULE.ER PO SCH ×2 (12:18→21:55)
[2018-10-13] MEDS: METHYLPREDNISOLONE INJ 40 MG/1 ML SDV IV SCH ×2 (12:18→21:55)
[2018-10-13] MEDS: GABAPENTIN 300 MG CAPSULE PO SCH ×2 (12:19→21:56)
[2018-10-13] MEDS: NITROGLYCERIN 5 MG (0.2 MG/HR) PATCH.TD24 TD SCH (12:19)
[2018-10-13] MEDS: DOCUSATE SODIUM 100 MG CAPSULE PO SCH (12:19)
[2018-10-13] MEDS: ASPIRIN 81 MG TABLET, ENT COATED PO SCH (12:20)
[2018-10-13] MEDS: FUROSEMIDE 40 MG TABLET PO SCH (12:20)
[2018-10-13] MEDS: VALSARTAN 40 MG TABLET PO SCH ×2 (12:20→21:56)
[2018-10-13] MEDS: HEPARIN SOD (PORCINE) 5,000 UNIT/ML 1 ML SYRINGE SUBCUT SCH ×2 (12:20→21:57)
[2018-10-13] MEDS: AMLODIPINE BESYLATE 10 MG TABLET PO SCH (12:20)
[2018-10-13] MEDS ORDERED: ALBUTEROL SULFATE 0.083% NEB 2.5 MG/3 ML AMPUL NEB PRN (12:38)
--- NOTE | 2018-10-13 13:57 | PDOC PROGRESS REPORT ---
Subjective Progress Note for:: 10/13/18 Subjective:: Ms. Kelly is a 62 yr old female with a PMH of morbid obesity, diastolic heart failure, obstructive sleep apnea, oxygen dependent COPD, stage III chronic kidney disease with current cocaine and tobacco abuse who presented with increasing SOB a few hours prior to presentation. She presented with a blood pressure of 190/97 and worsening renal function with a creatinine of 4.4. She was admitted for possible CHF exacerbation. No acute event overnight. Upon encounter this morning, her SOB continue to significantly improve. She says she feels like she is close to her baseline. She denies chest pain. She is on oxygen at home at 2lpm. Blood pressures running high in the 170-180 systolic. Reason For Visit: COPD AND HEART FAILURE, EXACERBATION WITH COCAINE Physical Exam Vital Signs: Temp Pulse Resp BP Pulse Ox 97.9 F 68 16 175/80 H 98 10/13/18 11:47 10/13/18 13:34 10/13/18 13:34 10/13/18 11:47 10/13/18 13:34 Intake & Output 10/12/18 10/13/18 10/14/18 06:59 06:59 06:59 Intake Total 1440 1480 237 Output Total 575 1250 Balance 865 230 237 Weight 252 lb 6.868 oz 247 lb 12.793 oz General appearance: PRESENT: no acute distress, well-developed, well-nourished Head exam: PRESENT: atraumatic, normocephalic Eye exam: PRESENT: conjunctiva pink, EOMI, PERRLA. ABSENT: scleral icterus Ear exam: PRESENT: normal external ear exam Mouth exam: PRESENT: moist, tongue midline Neck exam: ABSENT: carotid bruit, JVD, lymphadenopathy, thyromegaly Respiratory exam: PRESENT: rhonchi, wheezes Cardiovascular exam: PRESENT: RRR. ABSENT: diastolic murmur, rubs, systolic murmur Pulses: PRESENT: normal dorsalis pedis pul GI/Abdominal exam: PRESENT: normal bowel sounds, soft. ABSENT: distended, guarding, mass, organolmegaly, rebound, tenderness Rectal exam: PRESENT: deferred Neurological exam: PRESENT: alert, awake, oriented to person, oriented to place , oriented to time, oriented to situation, CN II-XII grossly intact. ABSENT: motor sensory deficit Results Laboratory Results: 10/13/18 05:33 10/13/18 05:33 10/12/18 10/12/18 10/13/18 17:35 20:15 05:33 WBC 14.6 H RBC 3.05 L Hgb 8.9 L Hct 26.7 L MCV 87 MCH 29.0 MCHC 33.2 RDW 14.3 H Plt Count 270 Seg Neutrophils % 88.4 H Lymphocytes % 10.0 L Monocytes % 1.5 L Eosinophils % 0.0 Basophils % 0.1 Absolute Neutrophils 12.9 H Absolute Lymphocytes 1.5 Absolute Monocytes 0.2 Absolute Eosinophils 0.0 Absolute Basophils 0.0 Sodium Potassium Chloride Carbon Dioxide Anion Gap BUN Creatinine Est GFR ( Amer) Est GFR (Non-Af Amer) Glucose Calcium Urine Color YELLOW Urine Appearance CLOUDY Urine pH 6.0 Ur Specific [place] 1.010 Urine Protein >=500 H Urine Glucose (UA) NEGATIVE Urine Ketones NEGATIVE Urine Blood NEGATIVE Urine Nitrite NEGATIVE Ur Leukocyte Esterase NEGATIVE Urine WBC (Auto) 30 Urine RBC (Auto) 14 Stool Occult Blood NEGATIVE 10/13/18 05:33 WBC RBC Hgb Hct MCV MCH MCHC RDW Plt Count Seg Neutrophils % Lymphocytes % Monocytes % Eosinophils % Basophils % Absolute Neutrophils Absolute Lymphocytes Absolute Monocytes Absolute Eosinophils Absolute Basophils Sodium 143.1 Potassium 4.7 Chloride 110 H Carbon Dioxide 20 L Anion Gap 13 BUN 94 H Creatinine 3.79 H Est GFR ( Amer) 15 L Est GFR (Non-Af Amer) 12 L Glucose 139 H Calcium 9.0 Urine Color Urine Appearance Urine pH Ur Specific [place] Urine Protein Urine Glucose (UA) Urine Ketones Urine Blood Urine Nitrite Ur Leukocyte Esterase Urine WBC (Auto) Urine RBC (Auto) Stool Occult Blood 10/10/18 10/10/18 10/10/18 22:25 22:25 23:54 Creatine Kinase 142 H CK-MB (CK-2) Cancelled 3.91 Troponin I Cancelled 0.497 10/11/18 10/11/18 10/11/18 05:55 05:55 12:57 Creatine Kinase 129 91 CK-MB (CK-2) 3.79 Troponin I 0.269 10/11/18 12:57 Creatine Kinase CK-MB (CK-2) 3.15 Troponin I 0.142 Impressions: Renal Ultrasound 10/11/18 11:50 IMPRESSION: NORMAL RENAL AND BLADDER ULTRASOUND. Chest X-Ray 10/12/18 06:00 IMPRESSION: HEART ENLARGED WITHOUT FAILURE. NO OTHER SIGNIFICANT RADIOGRAPHIC FINDING IN THE CHEST. Assessment & Plan - Diagnosis (1) COPD exacerbation Is this a current diagnosis for this admission?: Yes Plan: Improving. She continues to have rhonchi and wheezes but much improved from yesterday. Switch IV steroids to PO. Continue breathing treatments. She is currently saturating well on 2L of [place]. (2) Acute on chronic diastolic (congestive) heart failure Is this a current diagnosis for this admission?: Yes Plan: Patient was started on Lasix on admission. Chest x-ray does not show any pulmonary edema. Her SOB is likely a combination of CHF and COPD exacerbation. Continue Lasix 40 mg PO daily. (3) Acute on chronic renal failure Qualifiers: Acute renal failure type: unspecified Chronic kidney disease stage: unspecified stage Qualified Code(s): N17.9 - Acute kidney failure, unspecified ; N18.9 - Chronic kidney disease, unspecified; N18.9 - Chronic kidney disease, unspecified Is this a current diagnosis for this admission?: Yes Plan: Possibly from uncontrolled HTN. Nephrology following. Creatinine has improved from 4.4 to 3.7. (4) Hypertension Qualifiers: Hypertension type: essential hypertension Qualified Code(s): I10 - Essential (primary) hypertension Is this a current diagnosis for this admission?: Yes Plan: Blood pressures are running in the 170/80s. On valsartan, amlodipine and hydralazine. Increase hydralazine PO to 25 mg q6h. - Time Time Spent with patient: 15-24 minutes
[2018-10-14] MEDS: HYDRALAZINE HCL 25 MG TABLET PO SCH ×4 (00:18→17:20)
[2018-10-14] MEDS: IPRATROPIUM/ALBUTEROL 0.5-2.5 MG/3 ML AMPUL NEB SCH ×4 (02:34→20:18)
[2018-10-14] MEDS: CLONIDINE HCL 0.2 MG TABLET PO SCH ×3 (06:16→21:52)
[2018-10-14 06:50] LABS: ANION GAP 13 (5-19); BLOOD UREA NITROGEN 88 mg/dL (7-20); CARBON DIOXIDE 18 mmol/L (22-30); CHLORIDE 110 mmol/L (98-107); GLUCOSE 130 mg/dL (75-110); POTASSIUM 5.4 mmol/L (3.6-5.0); SODIUM 140.5 mmol/L (137-145)
[2018-10-14] MEDS: NITROGLYCERIN 5 MG (0.2 MG/HR) PATCH.TD24 TD SCH (09:11)
[2018-10-14] MEDS: DOCUSATE SODIUM 100 MG CAPSULE PO SCH (09:12)
[2018-10-14] MEDS: ASPIRIN 81 MG TABLET, ENT COATED PO SCH (09:12)
[2018-10-14] MEDS: AMLODIPINE BESYLATE 10 MG TABLET PO SCH (09:12)
[2018-10-14] MEDS: FUROSEMIDE 40 MG TABLET PO SCH (09:12)
[2018-10-14] MEDS: GABAPENTIN 300 MG CAPSULE PO SCH ×2 (09:12→21:53)
[2018-10-14] MEDS: VALSARTAN 40 MG TABLET PO SCH ×2 (09:12→21:53)
[2018-10-14] MEDS: METHYLPREDNISOLONE INJ 40 MG/1 ML SDV IV SCH ×2 (09:14→21:53)
[2018-10-14] MEDS: FLUTICASONE NASAL SPRAY 50 MCG/SPRY 120 SPRAY/16 GM NASL SCH ×2 (09:14→21:53)
[2018-10-14] MEDS: HEPARIN SOD (PORCINE) 5,000 UNIT/ML 1 ML SYRINGE SUBCUT SCH ×2 (09:15→21:52)
[2018-10-14] MEDS: POTASSIUM CHLORIDE 10 MEQ CAPSULE.ER PO SCH (09:42)
--- NOTE | 2018-10-14 14:51 | PDOC PROGRESS REPORT ---
Subjective Progress Note for:: 10/14/18 Subjective:: Ms. Kelly is a 62 yr old female with a PMH of morbid obesity, diastolic heart failure, obstructive sleep apnea, oxygen dependent COPD, stage III chronic kidney disease with current cocaine and tobacco abuse who presented with increasing SOB a few hours prior to presentation. She presented with a blood pressure of 190/97 and worsening renal function with a creatinine of 4.4. She was admitted for possible CHF exacerbation. No acute event overnight. Upon encounter this morning, she says her SOB is at baseline while on bed. She has not ambulated yet. Blood pressures running high overnight in the 180/90s. She denies chest pain. She is on oxygen at home at 2lpm. Reason For Visit: COPD AND HEART FAILURE, EXACERBATION WITH COCAINE Physical Exam Vital Signs: Temp Pulse Resp BP Pulse Ox 97.9 F 79 16 173/74 H 96 10/14/18 11:51 10/14/18 14:12 10/14/18 14:12 10/14/18 11:51 10/14/18 14:12 Intake & Output 10/13/18 10/14/18 10/15/18 06:59 06:59 06:59 Intake Total 1480 2002 237 Output Total 1250 750 Balance 230 2001 -513 Weight 247 lb 12.793 oz 245 lb 13.047 oz General appearance: PRESENT: no acute distress, well-developed, well-nourished Head exam: PRESENT: atraumatic, normocephalic Eye exam: PRESENT: conjunctiva pink, EOMI, PERRLA. ABSENT: scleral icterus Ear exam: PRESENT: normal external ear exam Mouth exam: PRESENT: moist, tongue midline Neck exam: ABSENT: carotid bruit, JVD, lymphadenopathy, thyromegaly Respiratory exam: PRESENT: rhonchi, wheezes - occasional rhonchi and wheezes, much improved from yesterday. ABSENT: rales Cardiovascular exam: PRESENT: RRR. ABSENT: diastolic murmur, rubs, systolic murmur GI/Abdominal exam: PRESENT: normal bowel sounds, soft. ABSENT: distended, guarding, mass, organolmegaly, rebound, tenderness Rectal exam: PRESENT: deferred Neurological exam: PRESENT: alert, awake, oriented to person, oriented to place , oriented to time, oriented to situation, CN II-XII grossly intact. ABSENT: motor sensory deficit Results Laboratory Results: 10/13/18 05:33 10/14/18 06:14 10/14/18 06:14 Sodium 140.5 Potassium 5.4 H Chloride 110 H Carbon Dioxide 18 L Anion Gap 13 BUN 88 H Creatinine 3.28 H Est GFR ( Amer) 17 L Est GFR (Non-Af Amer) 14 L Glucose 130 H Calcium 9.0 10/10/18 10/10/18 10/10/18 22:25 22:25 23:54 Creatine Kinase 142 H CK-MB (CK-2) Cancelled 3.91 Troponin I Cancelled 0.497 10/11/18 10/11/18 10/11/18 05:55 05:55 12:57 Creatine Kinase 129 91 CK-MB (CK-2) 3.79 Troponin I 0.269 10/11/18 12:57 Creatine Kinase CK-MB (CK-2) 3.15 Troponin I 0.142 Impressions: Renal Ultrasound 10/11/18 11:50 IMPRESSION: NORMAL RENAL AND BLADDER ULTRASOUND. Chest X-Ray 10/12/18 06:00 IMPRESSION: HEART ENLARGED WITHOUT FAILURE. NO OTHER SIGNIFICANT RADIOGRAPHIC FINDING IN THE CHEST. Assessment & Plan - Diagnosis (1) COPD exacerbation Is this a current diagnosis for this admission?: Yes Plan: Resolving. Continue steroids and breathing treatments. She is currently saturating well on 3L of [place]. Will have patient ambulate today and see how she does. She has rhonchi and wheezes but they are much improved compared to yesterday. (2) Acute on chronic diastolic (congestive) heart failure Is this a current diagnosis for this admission?: Yes Plan: Patient was started on Lasix on admission. Chest x-ray does not show any pulmonary edema. Her SOB is likely a combination of CHF and COPD exacerbation. IV Lasix switched to 40 mg PO daily by nephro. (3) Acute on chronic renal failure Qualifiers: Acute renal failure type: unspecified Chronic kidney disease stage: unspecified stage Qualified Code(s): N17.9 - Acute kidney failure, unspecified ; N18.9 - Chronic kidney disease, unspecified; N18.9 - Chronic kidney disease, unspecified Is this a current diagnosis for this admission?: Yes Plan: Possibly from uncontrolled HTN. Nephrology following. Creatinine still elevated but continue to trend down and is 3.2 this morning. (4) Hypertension Qualifiers: Hypertension type: essential hypertension Qualified Code(s): I10 - Essential (primary) hypertension Is this a current diagnosis for this admission?: Yes Plan: Blood pressures have been running high overnight in the 180/80s. On valsartan, amlodipine and hydralazine. Hydralazine was increased to 25 mg q6h yesterday . Will increase hydralazine to 50 mg q6h today. - Time Time Spent with patient: 15-24 minutes
[2018-10-15] MEDS: HYDRALAZINE HCL 25 MG TABLET PO SCH ×2 (00:38→05:09)
[2018-10-15] MEDS: IPRATROPIUM/ALBUTEROL 0.5-2.5 MG/3 ML AMPUL NEB SCH ×2 (02:21→07:37)
[2018-10-15] MEDS: CLONIDINE HCL 0.2 MG TABLET PO SCH (05:09)
[2018-10-15 06:18] LABS: HEMATOCRIT 28.5 % (36.0-47.0); HEMOGLOBIN 9.6 g/dL (12.0-15.5); MEAN CORPUSCULAR HEMOGLOBIN 29.1 pg (27.0-33.4); MEAN CORPUSCULAR HGB CONC 33.5 g/dL (32.0-36.0); MEAN CORPUSCULAR VOLUME 87 fl (80-97); PLATELET COUNT 251 10^3/uL (150-450); RED BLOOD COUNT 3.29 10^6/uL (3.72-5.28); RED CELL DISTRIBUTION WIDTH 13.9 % (11.5-14.0); WHITE BLOOD COUNT 14.3 10^3/uL (4.0-10.5)
[2018-10-15 06:35] LABS: ANION GAP 14 (5-19); BLOOD UREA NITROGEN 100 mg/dL (7-20); CALCIUM 9.1 mg/dL (8.4-10.2); CARBON DIOXIDE 18 mmol/L (22-30); CHLORIDE 106 mmol/L (98-107); GLUCOSE 173 mg/dL (75-110); SODIUM 137.6 mmol/L (137-145)
[2018-10-15] MEDS: DOCUSATE SODIUM 100 MG CAPSULE PO SCH (10:01)
[2018-10-15] MEDS: FUROSEMIDE 40 MG TABLET PO SCH (10:01)
[2018-10-15] MEDS: ASPIRIN 81 MG TABLET, ENT COATED PO SCH (10:01)
[2018-10-15] MEDS: NITROGLYCERIN 5 MG (0.2 MG/HR) PATCH.TD24 TD SCH (10:01)
[2018-10-15] MEDS: AMLODIPINE BESYLATE 10 MG TABLET PO SCH (10:02)
[2018-10-15] MEDS: GABAPENTIN 300 MG CAPSULE PO SCH (10:02)
[2018-10-15] MEDS: METHYLPREDNISOLONE INJ 40 MG/1 ML SDV IV SCH (10:02)
[2018-10-15] MEDS: HEPARIN SOD (PORCINE) 5,000 UNIT/ML 1 ML SYRINGE SUBCUT SCH (10:03)
[2018-10-15] MEDS: FLUTICASONE NASAL SPRAY 50 MCG/SPRY 120 SPRAY/16 GM NASL SCH (10:04)
[2018-10-15] MEDS: VALSARTAN 40 MG TABLET PO SCH (10:04)
[2018-10-15 10:24] VITALS: BP 177/75
[2018-10-15 14:37] LABS: ALBUMIN 2 2.9 g/dL (2.9-4.4); ALPHA-2-GLOBULIN 2 0.9 g/dL (0.4-1.0); BETA GLOBULINS 1.1 g/dL (0.7-1.3); GAMMA GLOBULIN 0.8 g/dL (0.4-1.8); MONOCLONAL SPIKE Not Observed g/dL (Not Observ); PROTEIN TOTAL SERUM 5.9 g/dL (6.0-8.5)
--- NOTE | 2018-10-15 22:13 | PDOC DISCHARGE SUMMARY ---
General - Admit/Disc Date/PCP Admission Date/Primary Care Provider: 10/10/18 21:44 WENCESLAO PEGUERO DO Discharge Date: 10/15/18 - Discharge Diagnosis (1) COPD exacerbation Is this a current diagnosis for this admission?: Yes (2) Acute on chronic diastolic (congestive) heart failure Is this a current diagnosis for this admission?: Yes (3) Acute on chronic renal failure Is this a current diagnosis for this admission?: Yes (4) Hypertension Is this a current diagnosis for this admission?: Yes - Additional Information Resuscitation Status: Full Code Prescriptions: Amlodipine Besylate [Norvasc 10 mg Tablet] 10 mg PO DAILY #30 tablet Budesonide/Formoterol Fumarate [Symbicort Hfa 160-4.5 Mcg Inhaler 6 gm] 2 puff IH Q12 #1 inhaler Clonidine HCl [Catapres 0.2 mg Tablet] 0.2 mg PO Q8 #90 tablet Furosemide [Lasix 40 mg Tablet] 40 mg PO DAILY #30 tablet Gabapentin [Neurontin 300 mg Capsule] 300 mg PO Q12 #60 capsule Hydralazine HCl [Apresoline 50 mg Tablet] 50 mg PO Q6H 120 Days tablet Prednisone [Deltasone 20 mg Tablet] 20 mg PO BID #10 tablet Valsartan [Diovan 40 mg Tablet] 40 mg PO Q12 #60 tablet Home Medications: Albuterol Sulfate [Proair HFA] 2 puff IH DAILY 09/07/18 Aspirin [Ecotrin 81 mg EC Tablet] 81 mg PO DAILY 09/07/18 Cyanocobalamin (Vitamin B-12) [Vitamin B-12] 100 mcg PO DAILY 09/07/18 Ferrous Sulfate [Feosol 325 mg Tablet] 325 mg PO DAILY 09/07/18 Fluticasone Propionate [Flonase Nasal [place] 50 Mcg/[place] 16 gm] 1 spray NASL Q12 09/07/18 Tiotropium [place] [Spiriva Handihaler 18 mcg/dose (30 Dose)] 1 cap IH DAILY Tramadol HCl [Ultram 50 mg Tablet] 50 mg PO Q12HP PRN 09/07/18 Amlodipine Besylate [Norvasc 10 mg Tablet] 10 mg PO DAILY #30 tablet 10/15/18 Budesonide/Formoterol Fumarate [Symbicort Hfa 160-4.5 Mcg Inhaler 6 gm] 2 puff IH Q12 #1 inhaler 10/15/18 Clonidine HCl [Catapres 0.2 mg Tablet] 0.2 mg PO Q8 #90 tablet 10/15/18 Furosemide [Lasix 40 mg Tablet] 40 mg PO DAILY #30 tablet 10/15/18 Gabapentin [Neurontin 300 mg Capsule] 300 mg PO Q12 #60 capsule 10/15/18 Hydralazine HCl [Apresoline 50 mg Tablet] 50 mg PO Q6H 120 Days tablet Prednisone [Deltasone 20 mg Tablet] 20 mg PO BID #10 tablet 10/15/18 Valsartan [Diovan 40 mg Tablet] 40 mg PO Q12 #60 tablet 10/15/18 History of Present Illness History of Present Illness: Admitting hospitalist's H&P: BOOM KELLY is a 62 year old female with a past medical history of morbid obesity, diastolic heart failure, obstructive sleep apnea, oxygen dependent COPD , stage III chronic kidney disease with current cocaine and tobacco abuse. Patient is admitted with several hours of shortness of breath and anxiety. Again denying cocaine use but tox screen positive, presenting with hypertensive urgency of 190/97 and acute on chronic renal failure with a creatinine of 4.4. She currently denies chest pain nausea vomiting or diaphoresis. She is started on 80 of Lasix IV and referred to the hospitalist for admission. She has flight of ideas and cannot recall her medications she admits to CPAP noncompliance. Hospital Course Hospital Course: Ms. Kelly is a 62 yr old female with a PMH of morbid obesity, diastolic heart failure, obstructive sleep apnea, oxygen dependent COPD, stage III chronic kidney disease with current cocaine and tobacco abuse who presented with increasing SOB a few hours prior to presentation. She presented with a blood pressure of 190/97 and worsening renal function with a creatinine of 4.4. She was admitted for possible CHF exacerbation vs COPD exacerbation. (1) COPD exacerbation Resolved. She received IV steroids and was on scheduled breathing treatment. She will be discharged on a short course of oral steroids. (2) Acute on chronic diastolic (congestive) heart failure Patient was started on Lasix on admission. Chest x-ray does not show any pulmonary edema. Her SOB is likely a combination of CHF and COPD exacerbation. IV Lasix switched to 40 mg PO daily by nephro. (3) Acute on chronic renal failure Possibly from uncontrolled HTN. Nephrology following. Creatinine still elevated but continued to trend down to 3.1. She was given outpatient follow up with nephrology. (4) Hypertension Regimen was adjusted to include valsartan, amlodipine and hydralazine. Hydralazine was increased to 50 mg q6h and blood pressures were optimally controlled. Physical Exam Vital Signs: Temp Pulse Resp BP Pulse Ox 97.6 F 59 L 18 143/65 H 100 10/15/18 07:46 10/15/18 07:46 10/15/18 07:46 10/15/18 07:46 10/15/18 07:46 Intake & Output 10/14/18 10/15/18 10/16/18 06:59 06:59 06:59 Intake Total 2001 140 Output Total 1749 Balance 2001 Weight 245 lb 13.047 oz 255 lb 15.307 oz General appearance: PRESENT: no acute distress, well-developed, well-nourished Head exam: PRESENT: atraumatic, normocephalic Eye exam: PRESENT: conjunctiva pink, EOMI, PERRLA. ABSENT: scleral icterus Ear exam: PRESENT: normal external ear exam Mouth exam: PRESENT: moist, tongue midline Neck exam: ABSENT: carotid bruit, JVD, lymphadenopathy, thyromegaly Respiratory exam: PRESENT: clear to auscultation brandon, rhonchi. ABSENT: rales, wheezes Cardiovascular exam: PRESENT: RRR. ABSENT: diastolic murmur, rubs, systolic murmur Pulses: PRESENT: normal dorsalis pedis pul GI/Abdominal exam: PRESENT: normal bowel sounds, soft. ABSENT: distended, guarding, mass, organolmegaly, rebound, tenderness Rectal exam: PRESENT: deferred Extremities exam: PRESENT: +2 edema Neurological exam: PRESENT: alert, awake, oriented to person, oriented to place , oriented to time, oriented to situation, CN II-XII grossly intact. ABSENT: motor sensory deficit Results Laboratory Results: 10/15/18 06:07 10/15/18 06:07 10/15/18 10/15/18 06:07 06:07 WBC 14.3 H RBC 3.29 L Hgb 9.6 L Hct 28.5 L MCV 87 MCH 29.1 MCHC 33.5 RDW 13.9 Plt Count 251 Sodium 137.6 Potassium 5.0 Chloride 106 Carbon Dioxide 18 L Anion Gap 14 BUN 100 H Creatinine 3.17 H Est GFR ( Amer) 18 L Est GFR (Non-Af Amer) 15 L Glucose 173 H Calcium 9.1 10/10/18 10/10/18 10/10/18 22:25 22:25 23:54 Creatine Kinase 142 H CK-MB (CK-2) Cancelled 3.91 Troponin I Cancelled 0.497 10/11/18 10/11/18 10/11/18 05:55 05:55 12:57 Creatine Kinase 129 91 CK-MB (CK-2) 3.79 Troponin I 0.269 10/11/18 12:57 Creatine Kinase CK-MB (CK-2) 3.15 Troponin I 0.142 Impressions: Renal Ultrasound 10/11/18 11:50 IMPRESSION: NORMAL RENAL AND BLADDER ULTRASOUND. Chest X-Ray 10/12/18 06:00 IMPRESSION: HEART ENLARGED WITHOUT FAILURE. NO OTHER SIGNIFICANT RADIOGRAPHIC FINDING IN THE CHEST. Qualifiers - * PATIENT BEING DISCHARGED WITH ANY OF THE FOLLOWING DIAGNOSIS: No
== END 2018-10-15 11:40 | disposition home or self-care (01) | DRG 291 ==
LOC: ER 17:10 → EH 21:44 → 3S 23:07
PROVIDERS: ADMIT Internal Medicine; ATTEND Internal Medicine
PROC: 5A09557 Assistance with Respiratory Ventilation, Greater than 96 Consecutive Hours, Continuous Positive Airway Pressure (ICD-10-PCS; principal; 2018-10-10)
DX: I13.0 Hypertensive heart and chronic kidney disease with heart failure and stage 1 through stage 4 chronic kidney disease, or unspecified chronic kidney disease (principal); I50.33 Acute on chronic diastolic (congestive) heart failure; J44.1 Chronic obstructive pulmonary disease with (acute) exacerbation; N17.9 Acute kidney failure, unspecified; E87.2 Acidosis; E87.0 Hyperosmolality and hypernatremia; N18.4 Chronic kidney disease, stage 4 (severe); E66.01 Morbid (severe) obesity due to excess calories; F17.210 Nicotine dependence, cigarettes, uncomplicated; I25.10 Atherosclerotic heart disease of native coronary artery without angina pectoris; I10 Essential (primary) hypertension; F32.9 Major depressive disorder, single episode, unspecified; J44.9 Chronic obstructive pulmonary disease, unspecified; Z37.0 Single live birth; Z99.81 Dependence on supplemental oxygen; Z79.82 Long term (current) use of aspirin; E83.39 Other disorders of phosphorus metabolism; F14.10 Cocaine abuse, uncomplicated; D63.1 Anemia in chronic kidney disease; D51.9 Vitamin B12 deficiency anemia, unspecified; I16.0 Hypertensive urgency; M10.9 Gout, unspecified; Z68.39 Body mass index [BMI] 39.0-39.9, adult; Z98.51 Tubal ligation status; Z82.3 Family history of stroke; Z83.3 Family history of diabetes mellitus; Z79.51 Long term (current) use of inhaled steroids; Z79.899 Other long term (current) drug therapy; G47.33 Obstructive sleep apnea (adult) (pediatric)
CPT/HCPCS: 36415; 71045; 76770; 80048; 80053; 80307; 81001; 82272; 82550; 82553; 82570; 82607; 82728; 82746; 82803; 83540; 83550; 83880; 84100; 84156; 84165; 84484; 85025; 85027; 85045; 93005; 93010; 94640; 94660; 96365; 96375; 99285; J0360; J1644; J1650; J1940; J2920; J2930; J3475; J3490; J7620; Q4081